=== PATIENT | male | born 1960 | race Caucasian/White ===

== ENCOUNTER 2016-06-22 21:31 | Inpatient (IN) | payer BC, OTHER ==
[~2016-06-22] VITALS: Ht 165.1 cm; Wt 55.3 kg
[2016-06-22] MEDS ORDERED: ALBUT/IPRATROP 3MG/0.5MG NEB 3 ML VIAL INH STA (21:40)
[2016-06-22] MEDS ORDERED: SODIUM CHLORIDE 0.9% 1000ML 500 ML IV STA (21:40)
[2016-06-22 21:52] LABS: HEMATOCRIT 44.1 % (42-52); MEAN CELL VOLUME 104.8 fL (80-100); MEAN CORPUSCULAR HEMOGLOBIN 37.3 pg (25-34); MEAN CORPUSCULAR HGB CONC 35.6 g/dl (32-36); MEAN PLATELET VOLUME 11.2 fL (7.4-10.4); PLATELET COUNT 172 K/uL (130-400); RED BLOOD COUNT 4.21 M/uL (4.7-6.1); WHITE BLOOD COUNT 13.36 K/uL (4.8-10.8)
--- NOTE | 2016-06-22 21:56 | EMERGENCY ROOM VISIT NOTE ---
History Report prepared by Gerri: Antonette Muniz Under the Supervision of: Dr. Fran Engel M.D. First contact with patient: 21:33 Stated Complaint: CHEST PAIN History of Present Illness The patient is a 55 year old male who presents to the Emergency Room via EMS with complaints of right lower chest pain starting about an hour and a half ago. He was at baseline prior to the onset of his symptoms. He was lifting some machines at work when he had an onset of his pain. The pain was severe and it brought him to his knees. He has worsening pain with breathing, movement of right arm, and palpation. He received 4 Aspirin and 2 Nitro in route to the Emergency Room without relief. He is a current cigarette smoker. He has a history of COPD. He has chronic shortness of breath and denies any changes. He has a chronic cough which has not changed. He denies any history of myocardial infarction or blood clots. He denies fevers, chills, or any other complaints. Source of History: patient Onset: about an hour and a half ago Position: chest (right lower) Symptom Intensity: severe Modifying Factors (Relieving): other (4 Aspirin and 2 Nitro in route to the Emergency Room without relief) Associated Symptoms: + SOB (chronic), + cough (chronic), No chills, No fevers Review of Systems See HPI for pertinent positives & negatives. A total of 10 systems reviewed and were otherwise negative. Past Medical & Surgical Medical Problems: (1) COPD (chronic obstructive pulmonary disease) (2) Respiratory failure, acute Family History Patient reports no known family medical history. Social History Marital Status: single Occupation Status: employed Current/Historical Medications Scheduled Aspirin (Aspirin Ec), 81 MG PO DAILY Cyanocobalamin (Vitamin B-12), 1,000 MCG PO DAILY Lisinopril (Zestril), 10 MG PO DAILY Allergies Coded Allergies: No Known Allergies (Unverified , 06/22/16) Physical Exam Vital Signs Date Time Temp Pulse Resp B/P Pulse Ox O2 Delivery O2 Flow Rate FiO2 06/22/16 23:01 94 Nasal Cannula 2.0 06/22/16 23:00 87 Room Air 06/22/16 22:40 98 20 136/98 95 Room Air 06/22/16 21:55 95 Room Air 06/22/16 21:55 36.6 103 22 146/100 95 Room Air 06/22/16 21:55 95 Room Air 06/22/16 21:47 97 Physical Exam GENERAL: Patient is in no acute distress. HEENT: No acute trauma, normocephalic atraumatic, mucous membranes moist, no nasal congestion, no scleral icterus. NECK: No stridor, no adenopathy, no meningismus, trachea is midline. CHEST: Tenderness over the right anterior low chest wall just off to the side of the sternum, pain does worsen with movement of his right arm. LUNGS: Markedly diminished breath sounds with wheezing and rhonchi bilaterally, breath sounds are equal. HEART: Tachycardic rate with a regular rhythm, no murmurs. ABDOMEN: Soft, nontender, bowel sounds positive, no hernias, no peritonitis. EXTREMITIES: No cyanosis or edema, full range of motion of all the joints without pain or difficulty, no signs for acute trauma. NEUROLOGIC: Oriented x 3, no acute motor or sensory deficits, no focal weakness. SKIN: No rash, no jaundice, no diaphoresis. Medical Decision & Procedures ER Provider Diagnostic Interpretation: X-ray results as stated below per interpretation by me and the radiologist: CHEST ONE VIEW PORTABLE CLINICAL HISTORY: CHEST PAIN dyspnea COMPARISON STUDY: No previous studies for comparison. FINDINGS: Mild emphysematous change. Possible nodular density left midlung. Diaphragms are smooth. No focal infiltrative change. IMPRESSION: Emphysematous change. Possible small nodular density left midlung versus overlap artifact. CT of the chest is suggested. Electronically signed by: Vladislav Steele M.D. 06/22/2016 10:19 PM Dictated Date/Time: 06/22/2016 10:[address] results as stated below per my review and radiologist interpretation: CHEST CTA for PULMONARY ARTERIES CT DOSE: 220.95 mGy.cm HISTORY: Chest pain dyspnea TECHNIQUE: Multiaxial CT images of the chest were performed following the intravenous administration of contrast to evaluate the pulmonary arteries. Maximal intensity projection images were also obtained. COMPARISON STUDY: None. FINDINGS: There is a normal caliber thoracic aorta with no evidence for dissection. There is no evidence for pulmonary embolus. No pleural effusions. No pneumothorax. The liver and spleen are unremarkable. No mediastinal or hilar lymphadenopathy. The central airways are patent. The lungs demonstrate patchy infiltrative versus nodular-type changes right lower lobe and a right lobe. There are no consolidative infiltrates. There is mild peribronchial thickening throughout. The density seen on the patient's routine chest series. Related to overlap artifact. IMPRESSION: 1. Study is negative for pulmonary embolus. 2. Emphysematous change with moderate peribronchial thickening. 3. Multifocal small infiltrative changes of the right lower lobe as well as right midlung region 4. Although statistically most likely consistent with an inflammatory process, short-term CT follow-up is recommended to exclude a persistent groundglass nodule. Electronically signed by: Vladislav Steele M.D. 06/22/2016 10:45 PM Dictated Date/Time: 06/22/2016 10:43 PM Laboratory Results 06/22/16 20:00 06/22/16 20:00 Test 06/22/16 20:00 06/22/16 21:49 Red Blood Count 4.21 M/uL (4.7-6.1) Mean Corpuscular Volume 104.8 fL (80-100) Mean Corpuscular Hemoglobin 37.3 pg (25-34) Mean Corpuscular Hemoglobin Concent 35.6 g/dl (32-36) RDW Standard Deviation 57.2 fL (36.4-46.3) RDW Coefficient of Variation 14.9 % (11.5-14.5) Mean Platelet Volume 11.2 fL (7.4-10.4) Prothrombin Time 9.9 SECONDS (9.0-12.0) Prothromb Time International Ratio 0.9 (0.9-1.1) Activated Partial Thromboplast Time 26.3 SECONDS (21.0-31.0) Partial Thromboplastin Ratio 1.0 Anion Gap 11.0 mmol/L (3-11) Est Creatinine Clear Calc Drug Dose 86.4 ml/min Estimated GFR () 124.5 Estimated GFR (Non- 107.4 BUN/Creatinine Ratio 5.3 (10-20) Calcium Level 7.9 mg/dl (8.5-10.1) Total Bilirubin 1.0 mg/dl (0.2-1) Aspartate Amino Transf (AST/SGOT) 79 U/L (15-37) Alanine Aminotransferase (ALT/SGPT) 41 U/L (12-78) Alkaline Phosphatase 264 U/L (45-117) Total Protein 6.8 gm/dl (6.4-8.2) Albumin 2.9 gm/dl (3.4-5.0) Globulin 3.9 gm/dl (2.5-4.0) Albumin/Globulin Ratio 0.7 (0.9-2) Bedside D-Dimer > 450 ng/mlFEU (0-450) Bedside Troponin I 0.030 ng/ml (0-0.045) Laboratory results reviewed by me. Medications Administered Medications (Trade) Dose Ordered Sig/Lee Route Start Time Stop Time Status Last Admin Dose Admin Sodium Chloride (Nss 1000ml) 500 ml @ 999 mls/hr Q31M STAT IV 06/22/16 21:40 06/22/16 22:10 DC 06/22/16 21:40 999 MLS/HR Albuterol/ Ipratropium (Duoneb) 3 ml NOW STAT INH 06/22/16 21:40 06/22/16 21:42 DC 06/22/16 21:51 3 ML Potassium Chloride (Klor-Con M10) 40 meq NOW STAT PO 06/22/16 22:16 06/22/16 22:18 DC 06/22/16 22:25 40 MEQ ECG Indication: chest pain Rate (beats per minute): 100 Rhythm: normal sinus Findings: no acute ischemic change, no ectopy, other (Old septal infarct; a possible old inferior infarct) Comparison ECG Date: no prior available ED Course 2132: The patient was evaluated in room B12B. A complete history and physical exam was performed. 0: DuoNeb 3 ml INH, Sodium Chloride 500 ml @ 999 mls/hr IV 2216: Potassium Chloride 40 meq PO 2220: I reevaluated the patient who had some improvement in pain. 2254: Zosyn IV 4.5 gm IV 2303: Solu-Medrol IV 80 mg IV 2305: I reevaluated the patient who is resting comfortably. 2312: The patient's oxygen saturation dropped. I discussed results and treatment plan with the patient. He verbalizes agreement and understanding. The patient will be evaluated for further management. 2315: I discussed the patient's case with Dr. Altman, from [facility] Service. Medical Decision Differential diagnosis includes but is not limited to myocardial infarction, musculoskeletal chest pain, exacerbation of COPD, pneumonia, pneumothorax, PE, aortic dissection. There is a mild leukocytosis which would be consistent with infection. No concerning anemia. Renal panel testing shows some hypokalemia, no kidney failure. There were a few elevations to the liver enzymes. There was no coagulopathy. Chest film shows COPD and some generalized congestion but no obvious focal infiltrate. No CHF or pneumothorax. EKG showed a normal sinus rhythm with some possible old infarcts, no acute ischemia. Cardiac enzyme testing times one is not consistent with acute cardiac injury. Blood cultures are pending. D-dimer test was positive. Chest CT does not show PE, a pneumonia on the right lung was noted. The patient received a DuoNeb, IV Solu-Medrol, IV saline. He received IV Zosyn as antibiotic coverage. Patient was given oral potassium. The patient did drop his O2 saturation to around 87%. He required O2 supplementation. He does seem improved though since being treated here in the emergency room. He seems much more comfortable and is breathing easier. The patient requires admission/observation. He is hypoxic with pneumonia. He has underlying COPD. I did speak to the patient and to case management. The on -call hospitalist was consulted. The chest pain is likely from his infection. Consults Time Called: 2311 Consulting Physician[facility] Returned Call: 3 I discussed the patient's case with [facility]. Impression Primary Impression: Right-sided chest pain Additional Impressions: Pneumonia Hypoxia COPD (chronic obstructive pulmonary disease) Scribe Attestation The scribe's documentation has been prepared under my direction and personally reviewed by me in its entirety. I confirm that the note above accurately reflects all work, treatment, procedures, and medical decision making performed by me. Departure Information Dispostion Being Evaluated By Hospitalist Referrals No Doctor, Assigned (PCP) Problem Qualifiers
[2016-06-22 22:05] LABS: INR 0.9 (0.9-1.1); PROTHROMBIN TIME (PATIENT) 9.9 SECONDS (9.0-12.0)
[2016-06-22] MEDS ORDERED: CYAN10005 PO (22:08)
[2016-06-22] MEDS ORDERED: ASPI81TA28 PO (22:08)
[2016-06-22 22:09] LABS: BUN/CREATININE RATIO 5.3 (10-20); CALCIUM 7.9 mg/dl (8.5-10.1); CREATININE 0.67 mg/dl (0.60-1.40); POTASSIUM 2.8 mmol/L (3.5-5.1)
[2016-06-22] MEDS ORDERED: LISI-461 PO (22:09)
[2016-06-22 22:12] LABS: ALB/GLOB RATIO 0.7 (0.9-2)
[2016-06-22] MEDS ORDERED: POTASSIUM CHLORIDE 10 MEQ TABCR PO STA ×2 (22:16→23:19)
--- NOTE | 2016-06-22 22:20 | DIAGNOSTIC IMAGING REPORT ---
CHEST ONE VIEW PORTABLE CLINICAL HISTORY: CHEST PAIN dyspnea COMPARISON STUDY: No previous studies for comparison. FINDINGS: Mild emphysematous change. Possible nodular density left midlung. Diaphragms are smooth. No focal infiltrative change. IMPRESSION: Emphysematous change. Possible small nodular density left midlung versus overlap artifact. CT of the chest is suggested. Electronically signed by: Vladislav Steele M.D. 06/22/2016 10:19 PM Dictated Date/Time: 06/22/2016 10:18 PM
--- NOTE | 2016-06-22 22:46 | DIAGNOSTIC IMAGING REPORT ---
CHEST CTA for PULMONARY ARTERIES CT DOSE: 220.95 mGy.cm HISTORY: Chest pain dyspnea TECHNIQUE: Multiaxial CT images of the chest were performed following the intravenous administration of contrast to evaluate the pulmonary arteries. Maximal intensity projection images were also obtained. COMPARISON STUDY: None. FINDINGS: There is a normal caliber thoracic aorta with no evidence for dissection. There is no evidence for pulmonary embolus. No pleural effusions. No pneumothorax. The liver and spleen are unremarkable. No mediastinal or hilar lymphadenopathy. The central airways are patent. The lungs demonstrate patchy infiltrative versus nodular-type changes right lower lobe and a right lobe. There are no consolidative infiltrates. There is mild peribronchial thickening throughout. The density seen on the patient's routine chest series. Related to overlap artifact. IMPRESSION: 1. Study is negative for pulmonary embolus. 2. Emphysematous change with moderate peribronchial thickening. 3. Multifocal small infiltrative changes of the right lower lobe as well as right midlung region 4. Although statistically most likely consistent with an inflammatory process, short-term CT follow-up is recommended to exclude a persistent groundglass nodule. Electronically signed by: Vladislav Steele M.D. 06/22/2016 10:45 PM Dictated Date/Time: 06/22/2016 10:43 PM
[2016-06-22] MEDS ORDERED: PIPERACILLIN/TAZOBACTAM 4.5 GM/100ML D5W IV STA (22:54)
[2016-06-22] MEDS ORDERED: METHYLPREDNISOLONE 125 MG VIAL IV STA (23:03)
[2016-06-22 23:42] LABS: MAGNESIUM 1.3 mg/dl (1.8-2.4)
[2016-06-22] MEDS ORDERED: LORAZEPAM 2 MG/ML 1 ML VIAL IV PRN (23:45)
[2016-06-22] MEDS ORDERED: LEVALBUTEROL 1.25MG/0.5ML NEB INH PRN (23:45)
[2016-06-22] MEDS ORDERED: MoRPHine SULFATE 2 MG/ML CARP IV PRN (23:45)
[2016-06-22] MEDS ORDERED: LEVALBUTEROL/IPRATROPIUM NEB INH PRN (23:45)
[2016-06-22] MEDS ORDERED: KETOROLAC TROMETHAMINE 15 MG/ML VIAL IV. PRN (23:45)
[2016-06-22] MEDS ORDERED: AMPICILLIN/SULBACTAM CONSULT ACTIVE PRN ×2 (23:45)
[2016-06-22] MEDS ORDERED: TRAMADOL HCL 50 MG TAB PO PRN (23:45)
[2016-06-22] MEDS ORDERED: ACETAMINOPHEN 325 MG TAB PO PRN (23:45)
[2016-06-22] MEDS ORDERED: IPRATROPIUM BROMIDE NEB SOLN 0.02% 2.5 ML VIAL INH PRN (23:45)
[2016-06-22] MEDS ORDERED: GABAPENTIN 800 MG TAB PO SCH (23:45)
[2016-06-23] VITALS (12 sets, daily range): BP systolic 151–214; BP diastolic 78–94; PULSE 58–110; TEMP 36.6–37.1; O2SAT 80–100; Ht 165.1 cm; Wt 55.3 kg
[2016-06-23 00:07] LABS: THYROID STIMULATING HORMONE 0.546 uIu/ml (0.300-4.500)
--- NOTE | 2016-06-23 00:43 | Progress Note ---
Progress Note Post Crystalloid Evaluation Date: June 22, 2016 Time: 23:40 Subjective sob usual cough sx prod of yellow sputum denies aspiration Physical Exam Vital Signs: Vital Signs Date Time Temp Pulse Resp B/P Pulse Ox O2 Delivery O2 Flow Rate FiO2 06/23/16 00:10 37.1 73 22 151/84 Nasal Cannula 2.0 06/22/16 23:49 93 Lungs: + wheezing Heart: regular rate, rhythm Peripheral Pulse: Weak Skin: [place], Unremarkable Assessment & Plan Presence of: Severe Sepsis ASSESSMENT: severe sepsis 2 to multifocal pneumonia, R SIRS plus hypoxemia plus lactic acidosis ? question of aspiration in an alcoholic patient CS, ff lactic acid [place] for now de-escalate tx pending CS results availability
[2016-06-23] MEDS ORDERED: VANCOMYCIN INJ 1,250 MG in SODIUM CHLORIDE 0.9% 250ML 250 ML IV STA (00:50)
[2016-06-23] MEDS ORDERED: MULTI-VITAMIN INFUSION INJ 10 ML, THIAMINE HCL INJ 100 MG, FoLIC ACID INJ 1 MG, POTASSI... IV ONE ×10 (01:00)
[2016-06-23] MEDS ORDERED: VANCOMYCIN CONSULT ACTIVE PRN (01:00)
[2016-06-23] MEDS ORDERED: PIPERACILL/TAZOBAC CONSULT ACTIVE PRN (01:00)
[2016-06-23] MEDS ORDERED: GABAPENTIN 800MG LOADING DOSE PO SCH (01:00)
[2016-06-23] MEDS: MAGNESIUM SULFATE 1GM / D5W 1 GM in PREMIXED IN D5W 100 ML IV SCH ×3 (01:05→02:56)
[2016-06-23] MEDS ORDERED: PROMETHAZINE HCL INJ 12.5 MG in SODIUM CHLORIDE 0.9% 50ML 50 ML IV PRN (01:45)
[2016-06-23] MEDS: IPRATROPIUM BROMIDE NEB SOLN 0.02% 2.5 ML VIAL INH SCH ×4 (01:50→19:52)
[2016-06-23] MEDS: LEVALBUTEROL 1.25MG/0.5ML NEB INH SCH ×4 (01:50→19:52)
[2016-06-23] MEDS ORDERED: POTASSIUM CHLORIDE 10 MEQ TABCR PO ONE ×2 (02:00→07:00)
[2016-06-23] MEDS ORDERED: AMPICILLIN/SULBACTAM SOD INJ 3,000 MG in SODIUM CHLORIDE 0.9% 100ML 100 ML IV SCH (02:00)
--- NOTE | 2016-06-23 02:19 | HISTORY & PHYSICAL EXAMINATION ---
DATE OF ADMISSION: 06/22/2016 PRIMARY CARE DOCTOR: Dr. Rajput History obtained from patient and records. CHIEF COMPLAINT: Shortness of breath. HISTORY OF PRESENT ILLNESS: Medical history is significant for COPD, ongoing tobacco abuse, hypertension and daily alcohol intake. Hx PVD as per records. Patient was at work today when he noted pleuritic right-sided chest pain, increasing shortness of breath; usual cough symptoms productive of yellow sputum. He denies aspiration. No fever/chills. loose stools, no abd pain. At the Emergency Room, a CTA showed no PE, COPD, multiple small infiltrative changes right lower lobe as well as the right mid lung. At some point, O2 sats dropped to 87 on room air. Patient received Solu-Medrol, Zosyn and DuoNebs in the Emergency Room. MEDICAL HISTORY: As above. Pneumococcal vaccine in 2013. He has not had seasonal flu vaccines recently. SURGERIES: He has had tonsillectomy, adenectomy, and dental surgery. HOME MEDICATIONS: Include; aspirin, lisinopril and vitamin B12. ALLERGIES: No known drug allergies. FAMILY HISTORY: Hypertension. PERSONAL AND SOCIAL HISTORY: One pack daily. 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 REVIEW OF SYSTEMS: As per HPI. All other ROS negative. PHYSICAL EXAMINATION: VITAL SIGNS: Blood pressure 136/98, pulse rate 98, RR 20, temperature 36.6 and sats 95 later 87 on room air 92 on 4 liters GENERAL: Slightly anxious, alcoholic fetor, looks older for stated age., in minimal respiratory distress. SKIN: Normal color. HEENT: [place] palpebral conjunctivae. Dry mucosa. NECK: No JVD. Supple. CHEST: Expiratory wheezes, rhonchi. HEART: Regular rate and rhythm. ABDOMEN: Soft. EXTREMITIES: No edema. no tenderness NEUROLOGIC: No gross focality. LABORATORIES: Hemoglobin was noted to be 15, hematocrit 44, white cells 13.3 and platelets 172. Sodium 140, potassium 2.8, chloride 92, CO2 of 37, BUN 4, creatinine 0.6 and glucose 98. magnesium 1.3, lactic acid 5.2 CTA; as above. EKG as per my interpretation; rate of 100, NSR, LAD, LAFB, some flattening in the lateral leads. QTc was noted to be 510. ASSESSMENT: 1. Acute hypoxemic respiratory failure secondary to COPD exacerbation 2 to multifocal pneumonia, R ? question of aspiration in an alcoholic patient 2. severe sepsis 2 to above SIRS plus hypoxemia plus lactic acidosis 3. Hypertension, stable. 4. Hypokalemia secondary to diarrhea; rule out Clostridium difficile. 5 Malnutrition. Low body mass index. 6. Ongoing tobacco abuse. 7. PVD as per records PLAN: PCU supplemental O2 baseline ABG CS, ff lactic acid Vanco, Zosyn for now, de-escalate tx pending CS results availability nebs, steroids Pulmonary consult for respiratory failure. Replace lytes stool cdif Nutrition consult for low BMI. DT precautions. DVT prophylaxis, Lovenox subQ. DNR. MTDD
[2016-06-23] MEDS ORDERED: LACTATED RINGER'S 1000ML 1,000 ML IV SCH (03:00)
[2016-06-23] MEDS ORDERED: LEVALBUTEROL/IPRATROPIUM NEB INH SCH (03:00)
[2016-06-23 04:07] LABS: BASO % 0.1 %; BASO ABS # 0.01 K/uL (0-0.2); COMPLETE YES; HEMATOCRIT 39.4 % (42-52); IG% 0.1 %; LYMPH % 2.2 %; LYMPH ABS # 0.21 K/uL (1.2-3.4); MEAN CELL VOLUME 104.8 fL (80-100); MEAN CORPUSCULAR HEMOGLOBIN 36.7 pg (25-34); MEAN PLATELET VOLUME 10.9 fL (7.4-10.4); MONO % 1.6 %; PLATELET COUNT 125 K/uL (130-400); RED BLOOD COUNT 3.76 M/uL (4.7-6.1); WHITE BLOOD COUNT 9.48 K/uL (4.8-10.8)
[2016-06-23 04:24] LABS: ARTERIAL BLD GAS O2 SATURATION 99.2 % (90-95); ARTERIAL BLOOD GAS BASE EXCESS 6.2 mEq/L (-9-1.8); ARTERIAL BLOOD GAS HCO3 31 mmol/L (19-24); ARTERIAL BLOOD GAS PO2 156 mm/Hg (80-95); ARTERIAL BLOOD GAS pH 7.47 (7.35-7.45); O2 ADMINISTRATION 6 L
[2016-06-23 04:25] LABS: ALLEN TEST POS (POS)
[2016-06-23 04:25] LABS: CREATININE 0.64 mg/dl (0.60-1.40); MAGNESIUM 2.6 mg/dl (1.8-2.4); POTASSIUM 3.2 mmol/L (3.5-5.1)
[2016-06-23 04:30] LABS: ALB/GLOB RATIO 0.7 (0.9-2)
[2016-06-23] MEDS ORDERED: POTASSIUM CHLORIDE 10 MEQ TABCR PO STA ×2 (04:44→22:20)
[2016-06-23] MEDS ORDERED: GLUCOSE 40% GEL 15 GM TUBE PO PRN (04:45)
[2016-06-23] MEDS ORDERED: GLUCOSE 10 TABS/TUBE PO PRN (04:45)
[2016-06-23] MEDS ORDERED: GLUCAGON FOR INJ 1 MG VIAL SQ PRN (04:45)
[2016-06-23] MEDS ORDERED: DEXTROSE 50% 50 ML SYR IV PRN (04:45)
[2016-06-23] MEDS: LACTATED RINGER'S 1000ML 1,000 ML IV SCH ×2 (05:28→11:27)
[2016-06-23] MEDS: PIPERACILL/TAZOBAC IV 3.375 GM in DEXTROSE 5% 100ML IV SCH ×3 (05:29→21:21)
[2016-06-23 06:27] LABS: ESTIMATED AVERAGE GLUCOSE 108 mg/dl; HA1C FLAG Normal (Normal)
--- NOTE | 2016-06-23 07:13 | DIAGNOSTIC IMAGING REPORT ---
CHEST ONE VIEW PORTABLE HISTORY: Short of breath. COMPARISON: Chest CT and chest x-ray 06/22/2016. FINDINGS: Emphysema. No pleural effusions. No pneumothorax. The heart is normal in size. Bilateral hilar prominence, unchanged. Hazy density within the right medial lung base persist. IMPRESSION: Hazy density within the right medial lung base consistent with a pneumonia. This remains unchanged. One month chest x-ray follow-up is recommended to ensure resolution. Electronically signed by: Reinaldo Snyder M.D. 06/23/2016 7:12 AM Dictated Date/Time: 06/23/2016 7:10 AM
[2016-06-23] MEDS: GABAPENTIN 400MG Q6H DOSE PO SCH ×2 (07:47→12:56)
[2016-06-23] MEDS: ASPIRIN 81 MG ECTAB PO SCH (07:47)
[2016-06-23] MEDS: NICOTINE 21 MG/24 HR TDSY TD SCH (07:47)
[2016-06-23] MEDS: LISINOPRIL 10 MG TAB PO SCH (07:48)
[2016-06-23] MEDS: INSULIN ASPART 100 UNITS/ML 3 ML PEN SC SCH ×4 (07:48→21:20)
[2016-06-23] MEDS: ENOXAPARIN 30 MG/0.3 ML SYR SC SCH (07:50)
[2016-06-23] MEDS ORDERED: INFLUENZA ADMINISTRATION CHARGE ONE (08:00)
[2016-06-23] MEDS ORDERED: PNEUMOCOCCAL ADMINISTRATION CHARGE ONE (08:00)
[2016-06-23] MEDS ORDERED: INFLUENZA VIRUS QUAD VACCINE 0.5 ML SYR IM. ONE (08:00)
[2016-06-23] MEDS ORDERED: PNEUMOCOCCAL POLYSACCHARIDES 25 MCG/0.5 ML VIAL/SYR IM. ONE (08:00)
--- NOTE | 2016-06-23 09:03 | Progress Note ---
Internal Med Progress Note Date of Service: June 23, 2016. Provider Documentation: SUBJECTIVE: Patient is seen and examined at bedside. Currently getting ECHO. He complains of pleuritic chest pain across his chest which is improving. Had one loose BM this morning. Denies any SOB, abd pain,nausea, vomiting. Has chronic cough. Offers no other complaints. Admits to being non compliant with meds/Inhalers use. OBJECTIVE: Vital Signs-as noted below Physical Exam: General Appearance:Thin, fragile, chronic ill appearing, no apparent distress Head: normocephalic, Atraumatic Eyes: normal inspection, EOMI, PERRL Neck: supple, Trachea midline Respiratory/Chest: Decreased breath sounds, CTA, No accessory muscle use Cardiovascular: S1, S2, No murmur Abdomen/GI:Soft, Non tender, Bowel sounds present Extremities/Musculoskelatal:normal inspection, no edema Neurologic/Psych:AAOX3, grossly no focal neurological deficits Skin: normal color, warm Lab data as noted below. ASSESSMENT & PLAN: Acute on chronic hypoxemic respiratory failure: Secondary to COPD exacerbation and Multifocal pneumonia Possible aspiration given h/o alcoholic abuse Admit being non compliance with meds/Inhalers Not on oxygen at baseline CTA: No PE Continue respiratory support ECHO:pending Continue duonebs, antibiotics, Prednisone Pulmonology consulted Severe sepsis: Secondary to Multifocal pneumonia Lactic acid trending down Continue IV fluids, Vanco and Zosyn Follow up Blood/Sputum cultures Stool for c.diff:pending Torsades: Monitor Electrolytes ECHO:pending Cardiology consulted Hypertension: stable Monitor Hypokalemia: Likely secondary to diarrhea. Will replace, monitor electrolytes Malnutrition: BMI:18.6 Nutrition consult Tobacco abuse: Clinical Pharmacologist Alcohol Abuse disorder: Alcohol level:91 Continue Gabapentin per protocol Continue thiamine, folic acid Watch for withdrawal Clinical Pharmacologist PVD as per records Continue Aspirin DVT Px: Lovenox subQ. Code Status: Full Code Discussed with patient on 06/23/16 PROCEDURES: CTA: 1. Study is negative for pulmonary embolus. 2. Emphysematous change with moderate peribronchial thickening. 3. Multifocal small infiltrative changes of the right lower lobe as well as right midlung region 4. Although statistically most likely consistent with an inflammatory process, short-term CT follow-up is recommended to exclude a persistent groundglass nodule. Vital Signs: Date Time Temp Pulse Resp B/P Pulse Ox O2 Delivery O2 Flow Rate FiO2 06/23/16 14:05 78 12 99 Nasal Cannula 4.0 06/23/16 11:30 Nasal Cannula 4.0 06/23/16 11:04 36.9 89 20 157/78 99 Nasal Cannula 4.0 06/23/16 07:45 Nasal Cannula 4.0 06/23/16 07:42 87 12 96 Nasal Cannula 4.0 06/23/16 07:08 36.7 58 20 179/91 100 06/23/16 04:00 Nasal Cannula 4.0 06/23/16 03:18 36.6 67 21 163/86 100 Nasal Cannula 6.0 06/23/16 01:50 84 18 98 Nasal Cannula 6.0 06/23/16 01:25 110 214/94 80 06/23/16 00:10 37.1 73 22 151/84 Nasal Cannula 2.0 06/22/16 23:49 86 22 154/89 93 06/22/16 23:01 94 Nasal Cannula 2.0 06/22/16 23:00 87 Room Air 06/22/16 22:40 98 20 136/98 95 Room Air 06/22/16 21:55 95 Room Air 06/22/16 21:55 36.6 103 22 146/100 95 Room Air 06/22/16 21:55 95 Room Air 06/22/16 21:47 97 Lab Results: Results Past 24 Hours Test 06/22/16 20:00 06/22/16 21:49 06/22/16 23:17 06/22/16 23:55 Range/Units White Blood Count 13.36 4.8-10.8 K/uL Red Blood Count 4.21 4.7-6.1 M/uL Hemoglobin 15.7 14.0-18.0 g/dL Hematocrit 44.1 42-52 % Mean Corpuscular Volume 104.8 80-100 fL Mean Corpuscular Hemoglobin 37.3 25-34 pg Mean Corpuscular Hemoglobin Concent 35.6 32-36 g/dl RDW Standard Deviation 57.2 36.4-46.3 fL RDW Coefficient of Variation 14.9 11.5-14.5 % Platelet Count 172 130-400 K/uL Mean Platelet Volume 11.2 7.4-10.4 fL Prothrombin Time 9.9 9.0-12.0 SECONDS Prothromb Time International Ratio 0.9 0.9-1.1 Activated Partial Thromboplast Time 26.3 21.0-31.0 SECONDS Partial Thromboplastin Ratio 1.0 Sodium Level 140 136-145 mmol/L Potassium Level 2.8 3.5-5.1 mmol/L Chloride Level 92 98-107 mmol/L Carbon Dioxide Level 37 21-32 mmol/L Anion Gap 11.0 3-11 mmol/L Blood Urea Nitrogen 4 7-18 mg/dl Creatinine 0.67 0.60-1.40 mg/dl Est Creatinine Clear Calc Drug Dose 86.4 ml/min Estimated GFR () 124.5 Estimated GFR (Non- 107.4 BUN/Creatinine Ratio 5.3 10-20 Random Glucose 98 70-99 mg/dl Calcium Level 7.9 8.5-10.1 mg/dl Magnesium Level 1.3 1.8-2.4 mg/dl Total Bilirubin 1.0 0.2-1 mg/dl Aspartate Amino Transf (AST/SGOT) 79 15-37 U/L Alanine Aminotransferase (ALT/SGPT) 41 12-78 U/L Alkaline Phosphatase 264 45-117 U/L Total Protein 6.8 6.4-8.2 gm/dl Albumin 2.9 3.4-5.0 gm/dl Globulin 3.9 2.5-4.0 gm/dl Albumin/Globulin Ratio 0.7 0.9-2 Thyroid Stimulating Hormone (TSH) 0.546 0.300-4.500 uIu/ml Bedside D-Dimer > 450 0-450 ng/mlFEU Bedside Troponin I 0.030 0.010 0-0.045 ng/ml Lactic Acid Level 5.2 0.4-2.0 mmol/L Ethyl Alcohol mg/dL 91.0 0-3 mg/dl Test 06/23/16 04:00 06/23/16 04:15 06/23/16 06:45 06/23/16 10:45 Range/Units White Blood Count 9.48 4.8-10.8 K/uL Red Blood Count 3.76 4.7-6.1 M/uL Hemoglobin 13.8 14.0-18.0 g/dL Hematocrit 39.4 42-52 % Mean Corpuscular Volume 104.8 80-100 fL Mean Corpuscular Hemoglobin 36.7 25-34 pg Mean Corpuscular Hemoglobin Concent 35.0 32-36 g/dl Platelet Count 125 130-400 K/uL Mean Platelet Volume 10.9 7.4-10.4 fL Neutrophils (%) (Auto) 96.0 % Lymphocytes (%) (Auto) 2.2 % Monocytes (%) (Auto) 1.6 % Eosinophils (%) (Auto) 0.0 % Basophils (%) (Auto) 0.1 % Neutrophils # (Auto) 9.10 1.4-6.5 K/uL Lymphocytes # (Auto) 0.21 1.2-3.4 K/uL Monocytes # (Auto) 0.15 0.11-0.59 K/uL Eosinophils # (Auto) 0.00 0-0.5 K/uL Basophils # (Auto) 0.01 0-0.2 K/uL RDW Standard Deviation 58.3 36.4-46.3 fL RDW Coefficient of Variation 15.0 11.5-14.5 % Immature Granulocyte % (Auto) 0.1 % Immature Granulocyte # (Auto) 0.01 0.00-0.02 K/uL Sodium Level 140 136-145 mmol/L Potassium Level 3.2 4.2 3.5-5.1 mmol/L Chloride Level 99 98-107 mmol/L Carbon Dioxide Level 34 21-32 mmol/L Anion Gap 7.0 3-11 mmol/L Blood Urea Nitrogen 3 7-18 mg/dl Creatinine 0.64 0.60-1.40 mg/dl Est Creatinine Clear Calc Drug Dose 89.0 ml/min Estimated GFR () 126.9 Estimated GFR (Non- 109.5 BUN/Creatinine Ratio 4.0 10-20 Random Glucose 189 70-99 mg/dl Estimated Average Glucose 108 mg/dl Hemoglobin A1c 5.4 4.5-5.6 % Lactic Acid Level 2.4 0.4-2.0 mmol/L Calcium Level 7.0 8.5-10.1 mg/dl Magnesium Level 2.6 2.2 1.8-2.4 mg/dl Total Bilirubin 1.3 0.2-1 mg/dl Aspartate Amino Transf (AST/SGOT) 87 15-37 U/L Alanine Aminotransferase (ALT/SGPT) 36 12-78 U/L Alkaline Phosphatase 217 45-117 U/L Total Protein 5.6 6.4-8.2 gm/dl Albumin 2.3 3.4-5.0 gm/dl Globulin 3.3 2.5-4.0 gm/dl Albumin/Globulin Ratio 0.7 0.9-2 Arterial Blood pH 7.47 7.35-7.45 Arterial Blood Partial Pressure CO2 43 35-46 mmHg Arterial Blood Partial Pressure O2 156 80-95 mm/Hg Arterial Blood HCO3 31 19-24 mmol/L Arterial Blood Oxygen Saturation 99.2 90-95 % Arterial Blood Base Excess 6.2 -9-1.8 mEq/L Arterial Blood Gas Delivery 6 L [place] Test POS POS Bedside Glucose 129 70-99 mg/dl Troponin I 0.023 0-0.045 ng/ml Test 06/23/16 11:47 06/23/16 12:27 06/23/16 14:38 Range/Units Bedside Glucose 125 70-99 mg/dl Lactic Acid Level 3.8 0.4-2.0 mmol/L Microbiology Results 06/22/16 Blood Culture, Received Pending 06/22/16 Blood Culture, Received Pending 06/23/16 MRSA DNA Surveillance Screen - Final, Complete Specimen Negative for MRSA by DNA Probe 06/23/16 C.difficile Toxin B Gene (PCR), Neo Batch Pending 06/23/16 Gram Stain, Received Pending 06/23/16 Sputum Culture, Received Pending
--- NOTE | 2016-06-23 09:55 | Pharmacy Progress Note ---
Pharmacy Antibiotic Consult Date of Service: June 23, 2016. Pharmacy Dosing Scope Pharmacy is consulted to initiate vancomycin and zosyn IV dosing therapy, order appropriate labs and adjust drug dose/frequency. Subjective The patient is a 55 year old male admitted on June 22, 2016 at 23:20. Objective Height (Feet): 5 Height (Inches): 5.00 Weight (Kilograms): 50.600 Lab Results (24hrs): Test 06/22/16 20:00 06/22/16 21:49 06/22/16 23:55 06/23/16 04:00 White Blood Count 13.36 K/uL (4.8-10.8) 9.48 K/uL (4.8-10.8) Red Blood Count 4.21 M/uL (4.7-6.1) 3.76 M/uL (4.7-6.1) Hemoglobin 15.7 g/dL (14.0-18.0) 13.8 g/dL (14.0-18.0) Hematocrit 44.1 % (42-52) 39.4 % (42-52) Mean Corpuscular Volume 104.8 fL (80-100) 104.8 fL (80-100) Mean Corpuscular Hemoglobin 37.3 pg (25-34) 36.7 pg (25-34) Mean Corpuscular Hemoglobin Concent 35.6 g/dl (32-36) 35.0 g/dl (32-36) RDW Standard Deviation 57.2 fL (36.4-46.3) 58.3 fL (36.4-46.3) RDW Coefficient of Variation 14.9 % (11.5-14.5) 15.0 % (11.5-14.5) Platelet Count 172 K/uL (130-400) 125 K/uL (130-400) Mean Platelet Volume 11.2 fL (7.4-10.4) 10.9 fL (7.4-10.4) Prothrombin Time 9.9 SECONDS (9.0-12.0) Prothromb Time International Ratio 0.9 (0.9-1.1) Activated Partial Thromboplast Time 26.3 SECONDS (21.0-31.0) Partial Thromboplastin Ratio 1.0 Sodium Level 140 mmol/L (136-145) 140 mmol/L (136-145) Potassium Level 2.8 mmol/L (3.5-5.1) 3.2 mmol/L (3.5-5.1) Chloride Level 92 mmol/L (98-107) 99 mmol/L (98-107) Carbon Dioxide Level 37 mmol/L (21-32) 34 mmol/L (21-32) Anion Gap 11.0 mmol/L (3-11) 7.0 mmol/L (3-11) Blood Urea Nitrogen 4 mg/dl (7-18) 3 mg/dl (7-18) Creatinine 0.67 mg/dl (0.60-1.40) 0.64 mg/dl (0.60-1.40) Est Creatinine Clear Calc Drug Dose 86.4 ml/min 89.0 ml/min Estimated GFR () 124.5 126.9 Estimated GFR (Non- 107.4 109.5 BUN/Creatinine Ratio 5.3 (10-20) 4.0 (10-20) Random Glucose 98 mg/dl (70-99) 189 mg/dl (70-99) Calcium Level 7.9 mg/dl (8.5-10.1) 7.0 mg/dl (8.5-10.1) Magnesium Level 1.3 mg/dl (1.8-2.4) 2.6 mg/dl (1.8-2.4) Total Bilirubin 1.0 mg/dl (0.2-1) 1.3 mg/dl (0.2-1) Aspartate Amino Transf (AST/SGOT) 79 U/L (15-37) 87 U/L (15-37) Alanine Aminotransferase (ALT/SGPT) 41 U/L (12-78) 36 U/L (12-78) Alkaline Phosphatase 264 U/L (45-117) 217 U/L (45-117) Total Protein 6.8 gm/dl (6.4-8.2) 5.6 gm/dl (6.4-8.2) Albumin 2.9 gm/dl (3.4-5.0) 2.3 gm/dl (3.4-5.0) Globulin 3.9 gm/dl (2.5-4.0) 3.3 gm/dl (2.5-4.0) Albumin/Globulin Ratio 0.7 (0.9-2) 0.7 (0.9-2) Thyroid Stimulating Hormone (TSH) 0.546 uIu/ml (0.300-4.500) Bedside D-Dimer > 450 ng/mlFEU (0-450) Bedside Troponin I 0.030 ng/ml (0-0.045) Lactic Acid Level 5.2 mmol/L (0.4-2.0) 2.4 mmol/L (0.4-2.0) Ethyl Alcohol mg/dL 91.0 mg/dl (0-3) Neutrophils (%) (Auto) 96.0 % Lymphocytes (%) (Auto) 2.2 % Monocytes (%) (Auto) 1.6 % Eosinophils (%) (Auto) 0.0 % Basophils (%) (Auto) 0.1 % Neutrophils # (Auto) 9.10 K/uL (1.4-6.5) Lymphocytes # (Auto) 0.21 K/uL (1.2-3.4) Monocytes # (Auto) 0.15 K/uL (0.11-0.59) Eosinophils # (Auto) 0.00 K/uL (0-0.5) Basophils # (Auto) 0.01 K/uL (0-0.2) Immature Granulocyte % (Auto) 0.1 % Immature Granulocyte # (Auto) 0.01 K/uL (0.00-0.02) Estimated Average Glucose 108 mg/dl Hemoglobin A1c 5.4 % (4.5-5.6) Test 06/23/16 04:15 06/23/16 06:45 06/23/16 09:33 Arterial Blood pH 7.47 (7.35-7.45) Arterial Blood Partial Pressure CO2 43 mmHg (35-46) Arterial Blood Partial Pressure O2 156 mm/Hg (80-95) Arterial Blood HCO3 31 mmol/L (19-24) Arterial Blood Oxygen Saturation 99.2 % (90-95) Arterial Blood Base Excess 6.2 mEq/L (-9-1.8) Arterial Blood Gas Delivery 6 L Mitchel Test POS (POS) Bedside Glucose 129 mg/dl (70-99) Micro Results: Item Value Date Time Blood Culture Received 06/22/16 2310 Blood Pending Blood Culture Received 06/22/16 2305 Blood Pending MRSA DNA Surveillance Screen - Final Complete 06/23/16 0130 Nasal Specimen Negative for MRSA by DNA Probe Assessment & Plan Patient started on vancomycin and zosyn for possible sepsis/pneumonia. BC x 2 are pending Vancomycin: * Patient received LD of vancomycin 1250 mg (~25 mg/kg) x 1 this am * Will start MD of vancomycin 750 mg (~15 mg/kg) iv q 12 hrs to achieve an estimated trough ~15-20 mcg/ml (goal for pna/sepsis) * Will plan to obtain a trough prior to the 0200 dose on 06-25 to ensure therapeutic * Estimated kinetics: t1/2~9 hrs, ke~0.08 hr-1, CrCl ~90 ml/min Zosyn: * 3.375 gm iv q 8 hrs (appropriate for Crcl>20 ml/min); no change Pharmacy will continue to follow and will adjust dose/frequency as necessary. Thank you
[2016-06-23] MEDS ORDERED: METOPROLOL TARTRATE 25 MG TAB PO ONE (10:45)
--- NOTE | 2016-06-23 11:24 | ECHOCARDIOGRAM REPORT ---
*NOTICE TO RECEIVING LIBERTARIAN AGENCY This information is strictly Confidential and protected under [place] law. [place] law prohibits you from making any further disclosure of this information unless further disclosure is expressly permitted by the written consent of the person to whom it pertains or is authorized by law. A general authorization for the release of medical or other information is not sufficient for this purpose. Hospital accepts no responsibility if the information is made available to any other person, INCLUDING THE PATIENT. Interpretation Summary * Name: JOSELITO YUAN Study Date: 06/23/2016 08:56 AM BP: 163/86 mmHg * Patient Location: C.2T\S\S229\S\2 HR: 67 * : 1960 (M/d/yyyy) Gender: Male Height: 65 in * Age: 55 yrs Ethnicity: CA Weight: 107 lb * Ordering Physician: Mak Altman * Referring Physician: Self, Referred * Performed By: Philly English RDCS * * Reason For Study: VT * BSA: 1.5 m2 * -- Conclusions -- * The left ventricle is normal in size. * There is borderline concentric left ventricular hypertrophy. * Left ventricular systolic function is normal. * No regional wall motion abnormalities noted. * Ejection Fraction = 60-65%. * Aortic valve sclerosis mild, without significant aortic valvular stenosis. * There is no pericardial effusion. Procedure Details * A complete two-dimensional transthoracic echocardiogram was performed (2D, M-mode, Doppler and color flow Doppler). * The study was technically difficult. Left Ventricle * The left ventricle is normal in size. * There is borderline concentric left ventricular hypertrophy. * Ejection Fraction = 60-65%. * Left ventricular systolic function is normal. * No regional wall motion abnormalities noted. Right Ventricle * The right ventricle is normal in size and function. Atria * The left atrial size is normal. * Right atrial size is normal. * No ASD detected; PFO is not assessed. Mitral Valve * The mitral valve anatomy is normal. * There is no mitral valve stenosis. * There is trace mitral regurgitation. Tricuspid Valve * The tricuspid valve anatomy is normal. * There is no tricuspid stenosis. * There is trace tricuspid regurgitation. * Doppler findings do not suggest pulmonary hypertension. Aortic Valve * The aortic valve is trileaflet. * Aortic valve sclerosis mild, without significant aortic valvular stenosis. * No aortic regurgitation is present. Pulmonic Valve * The pulmonic valve is not well visualized. Great Vessels * The aortic root is normal size. Pericardium/Pleural * There is no pericardial effusion. Great Vessels * Normal inferior vena cava diameter and respiratory variation suggests normal central venous pressure. MMode 2D Measurements and Calculations IVSd 0.80 cm LVIDd 4.2 cm LVIDs 2.9 cm LVPWd 0.98 cm IVS/LVPW 0.81 FS 30.7 % EDV(Teich) 77.7 ml ESV(Teich) 32.2 ml EF(Teich) 58.6 % EDV(cubed) 73.0 ml ESV(cubed) 24.3 ml EF(cubed) 66.7 % LV mass(C)d 116.0 grams LV mass(C)dI 76.5 grams/m\S\2 SV(Teich) 45.5 ml SI(Teich) 30.0 ml/m\S\2 SV(cubed) 48.7 ml SI(cubed) 32.1 ml/m\S\2 Ao root diam 3.5 cm Ao root area 9.7 cm\S\2 ACS 2.1 cm LA dimension 2.8 cm asc Aorta Diam 3.2 cm LA/Ao 0.81 LVOT diam 2.0 cm LVOT area 3.1 cm\S\2 LVAd ap4 18.9 cm\S\2 LVLd ap4 7.0 cm EDV(MOD-sp4) 42.1 ml EDV(sp4-el) 43.1 ml LVAs ap4 8.7 cm\S\2 LVLs ap4 5.3 cm ESV(MOD-sp4) 12.3 ml ESV(sp4-el) 12.0 ml EF(MOD-sp4) 70.8 % EF(sp4-el) 72.2 % LVAd ap2 11.8 cm\S\2 LVLd ap2 6.0 cm EDV(MOD-sp2) 19.4 ml EDV(sp2-el) 19.6 ml LVAs ap2 5.5 cm\S\2 LVLs ap2 4.4 cm ESV(MOD-sp2) 5.9 ml ESV(sp2-el) 6.0 ml EF(MOD-sp2) 69.3 % EF(sp2-el) 69.5 % LVLd %diff -17.73 % EDV(MOD-bp) 31.2 ml LVLs %diff -22.38 % ESV(MOD-bp) 9.4 ml EF(MOD-bp) 69.8 % SV(MOD-sp4) 29.8 ml SI(MOD-sp4) 19.6 ml/m\S\2 SV(MOD-sp2) 13.4 ml SI(MOD-sp2) 8.9 ml/m\S\2 SV(MOD-bp) 21.8 ml SI(MOD-bp) 14.4 ml/m\S\2 SV(sp4-el) 31.1 ml SI(sp4-el) 20.5 ml/m\S\2 SV(sp2-el) 13.6 ml SI(sp2-el) 9.0 ml/m\S\2 Doppler Measurements and Calculations MV E max bhargavi 87.3 cm/sec MV A max bhargavi 82.0 cm/sec MV E/A 1.1 MV dec time 0.21 sec Ao V2 max 119.9 cm/sec Ao max PG 5.7 mmHg Ao max PG (full) 1.8 mmHg [place](V,A) 2.6 cm\S\2 [place](V,D) 2.6 cm\S\2 LV V1 max PG 4.0 mmHg LV V1 max 99.9 cm/sec PA V2 max 88.2 cm/sec PA max PG 3.1 mmHg PA acc slope 684.3 cm/sec\S\2 PA acc time 0.11 sec PA pr(Accel) 29.9 mmHg
--- NOTE | 2016-06-23 11:27 | Cardiology Consultation ---
Cardiology Consultation Date of Consultation: June 23, 2016 Requesting Physician: Dr. Altman Attending Radiosonde Operator: Dr. Cruz (Emily Hebert, MAKENNA) History of Present Illness Patient is a 55 year old male with past medical history significant for alcohol and tobacco abuse, medication non compliance, COPD, hypertension. He follows with Dr. Rajput for his PCP. He is a DNR per admission records. No known history of cardiovascular disease per review of outpatient records. No prior admission to [facility]. No cardiac testing, other than remote EKG without significant findings. He denies cardiovascular history. He does admit to history of intermittent "syncope", last episode occurring the day PTO. He was admitted for worsening SOB/hypoxia weakness with findings of pneumonia and sepsis after collapsing while at work. Boss summoned 911. Unsure if true syncopal episode at that time. On admission, found to have alcohol level of 91 with low magnesium and low potassium. Started on antibiotics, steroids, nebs by hospitalist. Electrolytes replaced. Troponin negative. EKG with sinus tachycardia without ischemic changes. Last night/early AM around 1:12 AM patient had episode of VT/torsades, lasting approx 2 minutes. This was followed by 12 second pause and then converting to NSR. Per nursing notes, patient had pulse during episode but was apneic. He was suctioned during event, but no therapies received, given DNR. He had one recurrent episode of VT this morning, lasting approx 45 seconds. Per nurse, patient had shallow breathing. At time of consult, patient sitting up in bed, awake and alert. States pleuritic chest discomfort has improved. SOB improving. Still with wheeze and productive cough. Does not recall events from last night or this AM, other than "people surrounding my bed when I woke up". He confirms he is a DNR as he does not wish to be on "machines". (Emily Hebert, MAKENNA) History Medical History 1. Chronic tobacco abuse 2. Chronic alcohol abuse 3. COPD 4. HTN Surgical History ANKLE BRACHIAL INDEX 02/01/15 DEREK 0.96 Right. 1.1 left, normal DENTAL SURGERY PROCEDURE NEC total teeth removal REMOVE TONSILS & ADENOIDS, AGE 12+ Social History Lives alone. . Family estranged. Chronic tobacco abuse, 1 PPD x 45 years. Chronic alcohol use. Works at [employer]. Family History Mother with CAD, details unknown. (Emily Hebert PA-C) Review Of Systems General: no fever or chills. Head: The patient denies headache and prior head trauma. Cardiovascular: + pleuritic chest discomfort. Chronic dyspnea noted. The patient denies dyspnea on exertion, palpitations, PND, orthopnea, edema, spontaneous shortness of breath, syncope and near syncope. Pulmonary: +chronic cough with sputum production The patient denies hemoptysis, and excessive snoring. Gastrointestinal: The patient denies nausea, vomiting, diarrhea, constipation, bloating, hematemesis, hematochezia, and abdominal pain. Skin: The patient denies diaphoresis and rash. Musculoskeletal: The patient denies joint pain, joint swelling, myalgia, back pain, neck pain and prior injuries. Neurological: The patient denies prior stroke and seizures (Emily Hebert PA-C) Allergies Coded Allergies: No Known Allergies (Unverified , 06/22/16) Medications Reported Home Medications Medications Dose Route/Sig Max Daily Dose Days Date Category Zestril (Lisinopril) 10 Mg Tab 10 Mg PO DAILY 06/22/16 Reported Aspirin Ec (Aspirin) 81 Mg Tab 81 Mg PO DAILY 06/22/16 Reported Vitamin B-12 (Cyanocobalamin) 1,000 Mcg Tab 1,000 Mcg PO DAILY 06/22/16 Reported (Emily Hebert PA-C) Physical Exam Vital Signs (Last 8hrs): Last 8 Hrs Date Time Temp Pulse Resp B/P Pulse Ox O2 Delivery O2 Flow Rate FiO2 06/23/16 07:42 87 12 96 Nasal Cannula 4.0 06/23/16 07:08 36.7 58 20 179/91 100 06/23/16 04:00 Nasal Cannula 4.0 06/23/16 03:18 36.6 67 21 163/86 100 Nasal Cannula 6.0 06/23/16 01:50 84 18 98 Nasal Cannula 6.0 06/23/16 01:25 110 214/94 80 General Appearance: Alert and oriented x3. Thin. Cachectic. Older than stated age. Head: Normocephalic Atraumatic. Eyes: PERRLA, EOMI, conjunctiva and sclera clear Neck: Supple. No carotid bruits noted. No JVD. No HJD. Respiratory: Decreased breath sounds with scattered wheeze. Cardiovascular: Reg rate and rhythm. S1 and S2 noted. No murmurs, rubs, gallops. PMI non displace. Abdomen: Normal bowel sounds, soft nontender. no abdominal bruits. Extremities: No edema, no clubbing or cyanosis. distal pulses 2/4 bilaterally. Neuro: No focal deficits. Psychiatric: Normal affect. (Emily Hebert, MAKENNA) Data Last 24 Hours Test 06/22/16 20:00 06/22/16 21:49 06/22/16 23:55 06/23/16 04:00 White Blood Count 13.36 K/uL 9.48 K/uL Red Blood Count 4.21 M/uL 3.76 M/uL Hemoglobin 15.7 g/dL 13.8 g/dL Hematocrit 44.1 % 39.4 % Mean Corpuscular Volume 104.8 fL 104.8 fL Mean Corpuscular Hemoglobin 37.3 pg 36.7 pg Mean Corpuscular Hemoglobin Concent 35.6 g/dl 35.0 g/dl RDW Standard Deviation 57.2 fL 58.3 fL RDW Coefficient of Variation 14.9 % 15.0 % Platelet Count 172 K/uL 125 K/uL Mean Platelet Volume 11.2 fL 10.9 fL Prothrombin Time 9.9 SECONDS Prothromb Time International Ratio 0.9 Activated Partial Thromboplast Time 26.3 SECONDS Partial Thromboplastin Ratio 1.0 Sodium Level 140 mmol/L 140 mmol/L Potassium Level 2.8 mmol/L 3.2 mmol/L Chloride Level 92 mmol/L 99 mmol/L Carbon Dioxide Level 37 mmol/L 34 mmol/L Anion Gap 11.0 mmol/L 7.0 mmol/L Blood Urea Nitrogen 4 mg/dl 3 mg/dl Creatinine 0.67 mg/dl 0.64 mg/dl Est Creatinine Clear Calc Drug Dose 86.4 ml/min 89.0 ml/min Estimated GFR () 124.5 126.9 Estimated GFR (Non- 107.4 109.5 BUN/Creatinine Ratio 5.3 4.0 Random Glucose 98 mg/dl 189 mg/dl Calcium Level 7.9 mg/dl 7.0 mg/dl Magnesium Level 1.3 mg/dl 2.6 mg/dl Total Bilirubin 1.0 mg/dl 1.3 mg/dl Aspartate Amino Transf (AST/SGOT) 79 U/L 87 U/L Alanine Aminotransferase (ALT/SGPT) 41 U/L 36 U/L Alkaline Phosphatase 264 U/L 217 U/L Total Protein 6.8 gm/dl 5.6 gm/dl Albumin 2.9 gm/dl 2.3 gm/dl Globulin 3.9 gm/dl 3.3 gm/dl Albumin/Globulin Ratio 0.7 0.7 Thyroid Stimulating Hormone (TSH) 0.546 uIu/ml Bedside D-Dimer > 450 ng/mlFEU Bedside Troponin I 0.030 ng/ml Lactic Acid Level 5.2 mmol/L 2.4 mmol/L Ethyl Alcohol mg/dL 91.0 mg/dl Neutrophils (%) (Auto) 96.0 % Lymphocytes (%) (Auto) 2.2 % Monocytes (%) (Auto) 1.6 % Eosinophils (%) (Auto) 0.0 % Basophils (%) (Auto) 0.1 % Neutrophils # (Auto) 9.10 K/uL Lymphocytes # (Auto) 0.21 K/uL Monocytes # (Auto) 0.15 K/uL Eosinophils # (Auto) 0.00 K/uL Basophils # (Auto) 0.01 K/uL Immature Granulocyte % (Auto) 0.1 % Immature Granulocyte # (Auto) 0.01 K/uL Estimated Average Glucose 108 mg/dl Hemoglobin A1c 5.4 % Test 06/23/16 04:15 06/23/16 06:45 Arterial Blood pH 7.47 Arterial Blood Partial Pressure CO2 43 mmHg Arterial Blood Partial Pressure O2 156 mm/Hg Arterial Blood HCO3 31 mmol/L Arterial Blood Oxygen Saturation 99.2 % Arterial Blood Base Excess 6.2 mEq/L Arterial Blood Gas Delivery 6 L Mitchel Test POS Bedside Glucose 129 mg/dl Imaging: Chest xray on admission: IMPRESSION: Emphysematous change. Possible small nodular density left midlung versus overlap artifact. CT of the chest is suggested. Chest CT on admission: IMPRESSION: 1. Study is negative for pulmonary embolus. 2. Emphysematous change with moderate peribronchial thickening. 3. Multifocal small infiltrative changes of the right lower lobe as well as right midlung region 4. Although statistically most likely consistent with an inflammatory process, short-term CT follow-up is recommended to exclude a persistent groundglass nodule. EKG: on admission - Normal sinus rhythm Left axis deviation Septal infarct , age undetermined T wave abnormality, consider anterior ischemia Prolonged QT Abnormal ECG No previous ECGs available. QTc 513 ms repeat EKG 06/23/16 - Normal sinus rhythm Left axis deviation Anteroseptal infarct (cited on or before 22-JUN-2016) Prolonged QT Abnormal ECG When compared with ECG of 22-JUN-2016 21:40, (unconfirmed) No significant change was found Qtc 525 EKG this AM, 06/23/16 - Normal sinus rhythm Left axis deviation Septal infarct (cited on or before 22-JUN-2016) Abnormal ECG Questionable change in initial forces of Septal leads Nonspecific T wave abnormality now evident in Inferior leads Telemetry reviewed: NSR with ventricular ectopy with episode of VT/torsades occuring on 06/23/16 at 1:12 to 1:14 AM, followed by approx 12 second pause and conversion to NSR with PVCs. Recurrent VT episode occurring in AM on 06/23/16 lasting 45 seconds. (Emily Hebert, MAKENNA) Assessment & Plan 1. Admission for sepsis secondary to pneumonia 2. Ventricular tachycardia in setting of low mag, hypokalemia, prolonged QT 3. Hypertension 4. Chronic alcohol use 5. Chronic tobacco abuse 6. COPD PLAN: Replace magnesium and potassium. Recheck Levels this afternoon. QT improved on repeat EKGs Consider beta alen if recurrent episodes. Continue antibiotics and treatment for pneumonia. Avoid medications with tendency to prolong QT Treat for alcohol withdrawal. Patient is DNR. This was discussed in detail. He seems to understand recent episodes of VT and sudden cardiac . He wishes to remain DNR. Case discussed with Dr. Cruz. Will follow. (Emily Hebert PA-C) Cardiology attending physician: Patient seen and examined at the bedside. He is somewhat tremulous at this time. Admits to excessive alcohol intake for several years on a daily basis. Reports chest discomfort with deep inspiration. Telemetry reviewed overnight demonstrating prolonged episode of torsade the points after 4 AM with a subsequent 12 second pause followed by conversion to sinus rhythm. He had a second episode of torsade de points an approximate 7 AM with associated syncope. Repeat ECG demonstrate improvement in QT interval. Profound hypomagnesemia, hypokalemia been supplemented. Patient is resting comfortably. Admits to excessive alcohol and nicotine intake on a daily basis. He's been diagnosed with right sided pneumonia and receiving antibiotic therapy. Offers no other complaints this time. Denies personal history of coronary disease, congestive heart failure, rheumatic fever as a child, diabetes, peripheral vascular disease, or dysrhythmia. PE: VSS. Gen: NAD, AAOx3. Underweight. Tremulous. Heart: regular, normal S1 and S2. No murmur, rub, or gallop appreciated. The lungs demonstrate diminished breath sounds bilaterally. No rales or rhonchi. No expiratory wheeze. The abdomen is soft and nontender no rebound or guarding. Extension is warm and dry without clubbing or cyanosis. No edema appreciated. A/P: Agree with above PAC history, physical exam, assessment, and plan. Patient admitted with pneumonia and possible aspiration the setting of excessive alcohol intake. 2 episodes of torsade the points recorded overnight associated with acquired long QT due to electrolyte derangement. Magnesium and potassium have been supplemented. His rhythm has been stable over the past 6 hours. Patient requests changing CODE STATUS to full code at this time. Will not add beta alen currently to avoid bradycardia which could induce further episodes of torsades. Cardiac enzymes wee trended 3 sets. His resting 2-D transthoracic echo demonstrate normal LV function. Treatment of alcohol withdrawal as per the internal medicine service. Electrolytes will be followed closely and supplemented as needed. Will continue to follow closely during hospitalization. Kvng Cruz DO, [facility] (José Cruz DO)
[2016-06-23 12:13] LABS: MAGNESIUM 2.2 mg/dl (1.8-2.4); POTASSIUM 4.2 mmol/L (3.5-5.1)
[2016-06-23] MEDS: VANCOMYCIN INJ 750 MG in SODIUM CHLORIDE 0.9% 250ML 250 ML IV SCH (12:55)
[2016-06-23] MEDS ORDERED: SODIUM CHLORIDE 0.9% 500ML 500 ML IV ONE ×2 (13:45→17:30)
[2016-06-23] MEDS ORDERED: CALCIUM GLUCONATE 10% 1,000 MG in SODIUM CHLORIDE 0.9% 50ML 50 ML IV ONE (16:30)
[2016-06-23] MEDS: BOOST BREEZE NUTRITION DRINK 1 BOX PO SCH (16:38)
[2016-06-23 20:56] LABS: POTASSIUM 3.6 mmol/L (3.5-5.1)
[2016-06-23 20:58] LABS: MAGNESIUM 1.8 mg/dl (1.8-2.4)
[2016-06-23] MEDS ORDERED: METOPROLOL TARTRATE 25 MG TAB PO SCH (21:00)
[2016-06-23] MEDS ORDERED: NSS + 20MEQ KCL 1000ML 1,000 ML IV SCH (22:30)
[2016-06-23] MEDS: MAGNESIUM CHLORIDE 64MG DELAYED REL TAB PO SCH (22:56)
[2016-06-24] VITALS (11 sets, daily range): BP systolic 158–184; BP diastolic 85–101; PULSE 70–90; TEMP 36.6–37.1; O2SAT 95–99
--- NOTE | 2016-06-24 00:01 | PULMONARY CONSULTATION ---
DATE OF CONSULTATION: 06/23/2016 TIME: 1:50 p.m. HISTORY OF PRESENT ILLNESS: The patient was seen in room 229 bed 2. He is a 55-year-old male who yesterday had a fairly sudden onset of pain in the right lower chest area. It began when he was at work. 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 He has to lift boxes or materials that weigh about 40 pounds. The pain persisted and became worse. He became more short of breath. Taking a deep breath definitely made the pain worse. Movement of his right arm made it worse. It seemed as if palpation made it worse. Today, the pain is in different areas. It is now located more towards the center or towards the left and is somewhat higher up. It is also a lot less intense than yesterday. He does not feel like he has a cold. He has a daily cough which is chronic and related to smoking. His mucus is typically yellow or white. He relates that about 2 weeks ago he had an episode of what he calls vomiting, but he states a large amount of yellow mucus came out. He thinks it came from his lungs. He has had some shakes in the past day. He has had some chills but no fevers. He is much more comfortable today. He has not coughed up any blood at any time. He has had mild chills, but no sweats. The patient states his appetite is not good. However, he lives alone. The patient smokes heavily and drinks heavily. Other complaints include approximately 8 watery bowel movements per day. This has been for a few months. He has not noticed any blood in his stool. He has stool incontinence. He denies having abdominal pain. He denies heartburn. He denies difficulty with urination. The patient states he does not sleep well. He always has to move his bowels during the nighttime. PAST SURGICAL HISTORY: Positive for cataract surgery bilaterally. He had T&A and dental surgery done. PAST MEDICAL HISTORY: 1. COPD. 2. Hypertension. 3. Peripheral vascular disease affecting the right leg. SOCIAL HISTORY: Tobacco 1 pack per day currently, but much of his life 2 packs per day. He smoked for 40 years. Alcohol use is described as 4 shots of rum per day. He also drinks some beer. ALLERGIES: None known allergies. FAMILY HISTORY: Positive only for hypertension and coronary artery disease. REVIEW OF SYSTEMS: Negative except for the above-mentioned complaints. Ten systems were reviewed. HOME MEDICATIONS: 1. Aspirin 81 mg daily. 2. Lisinopril 10 mg daily. 3. Vitamin B12 1000 mcg daily. PHYSICAL EXAMINATION: GENERAL: The patient is a 55-year-old male who was cooperative, alert and oriented. He was in no distress. VITAL SIGNS: As noted. He did cough occasionally. The patient's weight is 50.6 kilograms. His BMI is only 18.6. Temperature is 36.9. HEENT: Pupils were reactive. Implants were noted. Nares were clear. Mouth exam showed an absence of teeth. NECK: Palpation of the neck reveals no lymph nodes. HEART: Chest was of normal expansion. Heart rate was 63 per minute. The rhythm is regular. LUNGS: Lung brar revealed very harsh rhonchi on the right chest greater than the left chest. CHEST: There was prolongation to the expiratory phase of respirations. Palpation of the chest revealed no tenderness focally. Blood pressure is 157/78. Oxygen saturation was 99% on 4 liters. ABDOMEN: Soft. Bowel sounds were present and were normal. There was no tenderness to palpation or masses. EXTREMITIES: Showed no cyanosis, clubbing or edema. LABORATORY DATA: Chest x-ray on admission suggested emphysematous changes with an inability to exclude a small nodular density in the left mid lung field. CAT scan of the chest was done. There was no evidence of pulmonary embolic disease. Emphysema was noted. There were multiple areas of small patchy infiltrates in the right mid and lower lung field. This appears most consistent with pneumonic infiltrates. No definite nodules were seen. White count on admission was 13.36, today it is 9.48. Hemoglobin was 15.7 yesterday and today is 13.8. Platelets yesterday were 172,000 and today are 125,000. Coags were normal. D-dimer was greater than 450. Arterial blood gas showed a pH of 7.47 with a pCO2 of 43 and a pO2 of 156 done on 6 liter nasal cannula. Sodium was 140, potassium 3.2, chloride 99, bicarbonate 34. BUN was 3 with a creatinine of 0.64. Lactic acid level at 4:00 a.m. was 2.4 and on repeat was 3.8. Calcium was low at 7.0. Magnesium was high at 2.6. Bilirubin was slightly high at 1.3. AST was 87 and ALT was 36. Alkaline phosphatase was elevated at 217, normal will be up to 117. Yesterday, the alkaline phosphatase was 264. TSH was 0.546. Albumin was 2.3 and total protein 5.6. IMPRESSION: 1. Pneumonia, right middle lobe and right lower lobe. 2. Chronic obstructive pulmonary disease. 3. Weight loss with 30-pound weight loss as per patient. 4. Diarrhea. COMMENTS AND RECOMMENDATIONS: The patient is currently on vancomycin and Zosyn. I would think that should be adequate coverage. One might wonder if he has had some aspiration in light of his alcohol abuse. If so, the Zosyn would be good coverage. The scan likely will ultimately need to be repeated to be certain that there has been clearance. The patient is on prednisone 40 mg daily. He has q. 6 hours levalbuterol and ipratropium. I agree with those. The patient states he has had pulmonary functions done through [email or web address]. If feasible, would be nice to obtain a copy of those reports to see what his functional status is out. It is unclear; however how long ago this was done. The patient has been noncompliant. He has 2 inhalers at home, but he does not use. He likely will need some type of bronchodilator therapy at the time of discharge. He may need followup and evaluation of the loose stools and incontinence. I will defer this to the hospitalist. Thank you for asking me to assist in his care. MONALISA
[2016-06-24] MEDS: LACTATED RINGER'S 1000ML 1,000 ML IV SCH ×2 (01:07→11:42)
[2016-06-24] MEDS: LEVALBUTEROL 1.25MG/0.5ML NEB INH SCH ×4 (01:53→19:56)
[2016-06-24] MEDS: IPRATROPIUM BROMIDE NEB SOLN 0.02% 2.5 ML VIAL INH SCH ×4 (01:53→19:56)
[2016-06-24] MEDS: VANCOMYCIN INJ 750 MG in SODIUM CHLORIDE 0.9% 250ML 250 ML IV SCH ×2 (01:56→14:06)
[2016-06-24 05:37] LABS: BASO % 0.1 %; BASO ABS # 0.01 K/uL (0-0.2); COMPLETE YES; EOS % 0.1 %; HEMATOCRIT 37.4 % (42-52); IG% 0.3 %; LYMPH % 5.5 %; LYMPH ABS # 0.82 K/uL (1.2-3.4); MEAN CELL VOLUME 108.4 fL (80-100); MEAN CORPUSCULAR HEMOGLOBIN 36.2 pg (25-34); MEAN CORPUSCULAR HGB CONC 33.4 g/dl (32-36); MEAN PLATELET VOLUME 11.1 fL (7.4-10.4); MONO % 5.7 %; NEUT % 88.3 %; PLATELET COUNT 117 K/uL (130-400); RED BLOOD COUNT 3.45 M/uL (4.7-6.1); WHITE BLOOD COUNT 14.78 K/uL (4.8-10.8)
[2016-06-24] MEDS: PIPERACILL/TAZOBAC IV 3.375 GM in DEXTROSE 5% 100ML IV SCH ×3 (05:49→21:45)
[2016-06-24] MEDS: GABAPENTIN 400MG Q8H DOSE PO SCH ×3 (05:49→21:45)
[2016-06-24] MEDS: NICOTINE 21 MG/24 HR TDSY TD SCH (05:50)
[2016-06-24 06:14] LABS: BUN/CREATININE RATIO 8.3 (10-20); CALCIUM 7.1 mg/dl (8.5-10.1); CREATININE 0.62 mg/dl (0.60-1.40); MAGNESIUM 1.8 mg/dl (1.8-2.4); POTASSIUM 4.1 mmol/L (3.5-5.1)
[2016-06-24] MEDS: INSULIN ASPART 100 UNITS/ML 3 ML PEN SC SCH ×4 (07:00→20:38)
[2016-06-24] MEDS: THIAMINE HCL 100 MG TAB PO SCH (07:44)
[2016-06-24] MEDS: BOOST BREEZE NUTRITION DRINK 1 BOX PO SCH ×2 (07:44→17:00)
[2016-06-24] MEDS: MULTIVITAMIN TAB PO SCH (07:45)
[2016-06-24] MEDS: ASPIRIN 81 MG ECTAB PO SCH (07:46)
[2016-06-24] MEDS: LISINOPRIL 10 MG TAB PO SCH (07:47)
[2016-06-24] MEDS: ENOXAPARIN 30 MG/0.3 ML SYR SC SCH (07:48)
[2016-06-24] MEDS: MAGNESIUM CHLORIDE 64MG DELAYED REL TAB PO SCH (07:48)
--- NOTE | 2016-06-24 10:57 | PROGRESS NOTE ---
DATE: 06/24/2016 DATE: 06/24/2016. PROBLEM LIST: Includes: 1. Pneumonia, right middle lobe and right lower lobe. 2. Chronic obstructive pulmonary disease. 3. Unexplained weight loss. 4. Tobacco use. SUBJECTIVE: The patient was seen in room 229 bed 2. He is a 55-year-old male with history of COPD and was admitted for pleuritic right-sided chest pain. It appears that he has a pneumonia. Dr. Toro did do the initial consultation yesterday. The patient reports that he is feeling better today. He states that his breathing is improved. He states that the right-sided chest pain as fairly gone. He still has a little bit of discomfort in central area. He states that it is much improved; however, he states that he is still coughing some. He does get a little bit of mucus up when he coughs. He states that he still is wheezing, but he is not sure how much of that is normal because he has had wheezing even prior to getting sick. He states that he is less short of breath. He continues to wear oxygen. He states that he was out walking around and did pretty well. He states that he still is very shaky, feels a little bit weak and tired yet. He states he did have a little bit of difficulty sleeping last night. He states that he has been doing well with the nicotine patch and states that he is going to try and stop smoking. He states that he can get free nicotine patches through work. He has not had any difficulty with fever or chills that he is aware of. No sweats, no other concerns or problems. His appetite is normal. No nausea or vomiting. No difficulty voiding. No swelling in his extremities. OBJECTIVE: GENERAL: The patient is a 55-year-old male in no acute distress sitting at the bedside. He is alert and oriented x3. Mood is good. Affect is good. VITAL SIGNS: Temp 36.7, pulse 71, respirations 20, blood pressure is 174/93, pulse ox 99% on 3 liters. HEAD, EYES, EARS, NOSE, AND THROAT: Normocephalic, atraumatic. Pupils equal, round and reactive to light and accommodation. Extraocular movements are intact. [employer] moist gingival and buccal mucosa. NECK: Supple. No mass. No adenopathy. No bruit. CHEST: The patient still has some coarse wheezes diffusely throughout. Right side seems to be more noticeable than the left. No rales noted. CARDIOVASCULAR: Regular rate and rhythm. No murmurs, gallops or rubs appreciated. ABDOMEN: Bowel sounds are present. Abdomen soft, nontender. No guarding, rigidity or organomegaly. EXTREMITIES: No cyanosis or clubbing noted. No edema noted. NEUROLOGIC: Cranial nerves II through XII are intact. No focal deficit noted. LABORATORY DATA: Shows white count 14,000, H\T\H 12.5 and 37.4, platelet count 117,000. Sputum Gram stain showing no organisms. Culture is pending. Blood cultures to date are negative. No new imaging data. IMPRESSION: 1. This is a 55-year-old male who has a significant smoking history of predominantly 2 packs a day for 40 years who presented with right-sided chest pain and was found to have pneumonia located in the right middle lobe, right lower lobe. At this point, the patient is on vancomycin and Zosyn. In reviewing the chart, it looks like the patient had a syncopal episode prior to coming in and as Dr. Toro mentioned with his alcohol use and this syncopal episode does raise consideration for aspiration. Because of this Zosyn is to be continued. In regards to his prednisone the patient is on 40 mg daily. Would recommend to continue this. Also continue pulmonary toilet in the form of the levalbuterol and ipratropium. 2. Chronic obstructive pulmonary disease. The patient is a longtime smoker. We do not have any current pulmonary function testing. I would recommend this be done as an outpatient. 3. Tobacco use. The patient currently is on nicotine patches and seems to be doing well. I did discuss with him stopping smoking, try to encourage him to continue to do so. He states that he is going to get patches through his place of employment and see if he can work with them. Otherwise continue current treatment as they are. Will continue to follow through hospitalization.
--- NOTE | 2016-06-24 11:43 | Cardiology Follow-Up ---
Subjective General Date of Service: June 24, 2016. Chief Complaint: pneumonia Pt evaluation today including: conversation w/ patient, physical exam, chart review, lab review, review of studies, review of inpatient medication list History of Present Illness Patient sitting up in chair today, feeling much better. Denies recurrent dizziness/syncope or near syncope. no sense of palpitations. Pleuritic chest pain resolved. No SOB currently. Cough with sputum production unchanged. Telemetry reviewed - no recurrent VT/Torsades since yesterday 06/23/16 in the AM hours. Allergies Coded Allergies: No Known Allergies (Unverified , 06/22/16) Social History Smoking Status: Former Smoker Hx Alcohol Use - Type And Amou: Yes Hx Substance Use - Type And Am: No Problem List Medical Problems: (1) COPD (chronic obstructive pulmonary disease) Status: Chronic (2) Hypoxia Status: Acute (3) Pneumonia Status: Acute (4) Right-sided chest pain Status: Acute Review of Systems Respiratory: + cough, + sputum, No dyspnea at rest, No dyspnea on exertion, No hemoptysis, No shortness of breath, No wheezing Cardiac: No PND, No chest pain, No edema, No orthopnea, No palpitations Physical Exam Vital Signs Last Vital Signs Documentation Date Time Temp Pulse Resp B/P Pulse Ox O2 Delivery O2 Flow Rate FiO2 06/24/16 10:58 37.0 84 20 162/96 95 Nasal Cannula 1.0 Physical Exam Constitutional: General Apperance: too thin Level of Distress: NAD, acutely ill, chronically ill Psychiatric: Mental Status: active & alert Orientation: to time, to place, to person Head: normocephalic Eyes: Pupils: PERRLA Neck: supple Lungs: Auscultation: no wheezing, no rales/crackles, no rhonchi, decreased breath sounds Cardiovascular: Heart Auscultation: RRR, normal S1, normal S2, no murmurs Abdomen: Bowel Sounds: normal Inspection & Palpation: soft, non-distended Extremities: no edema Neurologic: Gait & Station: pertinent finding (tremors noted) Assessment and Plan Assessment and Plan 1. Admission right sided pneumonia/sepsis 2. Ventricular tachycardia/Torsades in setting of low mag, hypokalemia, prolonged QT 3. Hypertension - borderline 4. Chronic alcohol use 5. Chronic tobacco abuse 6. COPD PLAN: Electrolytes improved. No recurrent arrhythmias noted. Improved QT/QTc on repeat EKG's. Continue antibiotics and treatment for pneumonia. Avoid medications with tendency to prolong QT Treat for alcohol withdrawal. May benefit from ischemic work up as outpatient. However, it is likely the VT/ Torsades was caused by severe electrolyte imbalance and acute illness. Code status was changed to Full Code. Smoking and alcohol cessation strongly encouraged and discussed with the patient. IF BP remains elevated, increase lisinopril dose. Case discussed with Dr. Cruz. Will follow. Cardiology attending physician: Patient seen and examined at the bedside. +tremor. No CP. QTc WNL on AM ECG. No recurrent TDP. No other complaints at this time. PE: VSS. Gen: NAD, AAOx3. Underweight. Tremulous. Heart: regular, normal S1 and S2. No murmur, rub, or gallop appreciated. The lungs demonstrate diminished breath sounds bilaterally. No rales or rhonchi. No expiratory wheeze. The abdomen is soft and nontender no rebound or guarding. Extension is warm and dry without clubbing or cyanosis. No edema appreciated. A/P: Agree with above PAC history, physical exam, assessment, and plan. Patient admitted with pneumonia and possible aspiration the setting of excessive alcohol intake. 2 episodes of torsade the points recorded overnight associated with acquired long QT due to electrolyte derangement. Magnesium and potassium have been supplemented. Oral slow-mag supplement ordered today. His rhythm has been stable over the past 24 hours. BP elevated likely related to ETOH withdrawal. Will titrate lisinopril to 20mg daily. Treatment of alcohol withdrawal as per the internal medicine service. Electrolytes will be followed closely and supplemented as needed. Will continue to follow closely during hospitalization. Kvng Cruz DO, [facility] Laboratory Results Last 24 Hours Test 06/23/16 11:47 06/23/16 12:27 06/23/16 16:20 06/23/16 16:30 Bedside Glucose 125 mg/dl 150 mg/dl Lactic Acid Level 3.8 mmol/L 2.7 mmol/L Troponin I 0.018 ng/ml Test 06/23/16 20:30 06/23/16 20:43 06/24/16 05:10 06/24/16 06:29 Potassium Level 3.6 mmol/L 4.1 mmol/L Lactic Acid Level 2.9 mmol/L Magnesium Level 1.8 mg/dl 1.8 mg/dl Bedside Glucose 221 mg/dl 78 mg/dl White Blood Count 14.78 K/uL Red Blood Count 3.45 M/uL Hemoglobin 12.5 g/dL Hematocrit 37.4 % Mean Corpuscular Volume 108.4 fL Mean Corpuscular Hemoglobin 36.2 pg Mean Corpuscular Hemoglobin Concent 33.4 g/dl Platelet Count 117 K/uL Mean Platelet Volume 11.1 fL Neutrophils (%) (Auto) 88.3 % Lymphocytes (%) (Auto) 5.5 % Monocytes (%) (Auto) 5.7 % Eosinophils (%) (Auto) 0.1 % Basophils (%) (Auto) 0.1 % Neutrophils # (Auto) 13.06 K/uL Lymphocytes # (Auto) 0.82 K/uL Monocytes # (Auto) 0.84 K/uL Eosinophils # (Auto) 0.01 K/uL Basophils # (Auto) 0.01 K/uL RDW Standard Deviation 59.7 fL RDW Coefficient of Variation 15.2 % Immature Granulocyte % (Auto) 0.3 % Immature Granulocyte # (Auto) 0.04 K/uL Sodium Level 141 mmol/L Chloride Level 103 mmol/L Carbon Dioxide Level 34 mmol/L Anion Gap 4.0 mmol/L Blood Urea Nitrogen 5 mg/dl Creatinine 0.62 mg/dl Est Creatinine Clear Calc Drug Dose 95.2 ml/min Estimated GFR () 128.5 Estimated GFR (Non- 110.9 BUN/Creatinine Ratio 8.3 Random Glucose 81 mg/dl Calcium Level 7.1 mg/dl Vitamin B12 Level 1103 pg/mL
[2016-06-24] MEDS ORDERED: MAGNESIUM CHLORIDE 64MG DELAYED REL TAB PO ONE (12:30)
--- NOTE | 2016-06-24 12:35 | Progress Note ---
Internal Med Progress Note Date of Service: June 24, 2016. Provider Documentation: SUBJECTIVE: Patient is seen and examined at bedside. States pleuritic chest pain resolved. Cough, SOB is improving. Had 2 loose BMs today. Denies any abd pain,nausea, vomiting. Offers no other complaints. OBJECTIVE: Vital Signs-as noted below Physical Exam: General Appearance:Thin, fragile, chronic ill appearing, no apparent distress Head: normocephalic, Atraumatic Eyes: normal inspection, EOMI, PERRL Neck: supple, Trachea midline Respiratory/Chest: Decreased breath sounds, CTA, No accessory muscle use Cardiovascular: S1, S2, No murmur Abdomen/GI:Soft, Non tender, Bowel sounds present Extremities/Musculoskelatal:normal inspection, no edema Neurologic/Psych:AAOX3, grossly no focal neurological deficits Skin: normal color, warm Lab data as noted below. ASSESSMENT & PLAN: Acute on chronic hypoxemic respiratory failure: Secondary to COPD exacerbation and Multifocal pneumonia Possible aspiration given h/o alcoholic abuse Admit being non compliance with meds/Inhalers Not on oxygen at baseline CTA: No PE Continue respiratory support ECHO:wnl Continue duonebs, antibiotics, Prednisone Pulmonology consulted Oxygen requirement trending down Severe sepsis: Secondary to Multifocal pneumonia/Possible Aspiration Lactic acidosis: Likely secondary to above and liver disease S/P IV fluids Continue Vanco and Zosyn Follow up Blood/Sputum cultures: Blood cultures pending to date Stool for c.diff:pending Check Procalcitonin Leukocytosis: on Prednisone, Afebrile Torsades: Monitor Electrolytes ECHO:EF: 60-65% Appreciate Cardiology help Hypertension: Elevated likely secondary to alcohol withdrawal Continue Lisinopril Monitor Hypokalemia/Hypomagnesemia: Likely secondary to diarrhea. S/P replacement, monitor electrolytes Malnutrition: BMI:18.6 Nutrition consult Tobacco abuse: [place] Alcohol Abuse disorder: Alcohol level:91 Continue Gabapentin per protocol Continue thiamine, folic acid Watch for withdrawal [place] PVD as per records Continue Aspirin DVT Px: Lovenox subQ. Code Status: Full Code Discussed with patient on 06/23/16 PROCEDURES: CTA: 1. Study is negative for pulmonary embolus. 2. Emphysematous change with moderate peribronchial thickening. 3. Multifocal small infiltrative changes of the right lower lobe as well as right midlung region 4. Although statistically most likely consistent with an inflammatory process, short-term CT follow-up is recommended to exclude a persistent groundglass nodule. ECHO: * The left ventricle is normal in size. * There is borderline concentric left ventricular hypertrophy. * Left ventricular systolic function is normal. * No regional wall motion abnormalities noted. * Ejection Fraction = 60-65%. * Aortic valve sclerosis mild, without significant aortic valvular stenosis. * There is no pericardial effusion. Vital Signs: Date Time Temp Pulse Resp B/P Pulse Ox O2 Delivery O2 Flow Rate FiO2 06/24/16 10:58 37.0 84 20 162/96 95 Nasal Cannula 1.0 06/24/16 09:14 84 95 06/24/16 08:00 Nasal Cannula 1.0 06/24/16 07:27 36.7 71 20 174/93 99 Nasal Cannula 3.0 06/24/16 07:05 73 16 99 Nasal Cannula 3.0 06/24/16 04:00 Nasal Cannula 4.0 06/24/16 03:17 37.1 74 21 158/85 99 Nasal Cannula 3.0 06/24/16 01:53 78 16 96 Nasal Cannula 3.0 06/24/16 00:00 Nasal Cannula 4.0 06/23/16 23:01 36.8 75 24 166/84 99 Nasal Cannula 3.0 06/23/16 20:00 Nasal Cannula 4.0 06/23/16 19:53 71 18 98 Nasal Cannula 3.0 06/23/16 19:46 37.1 64 18 155/80 100 Nasal Cannula 3.0 06/23/16 15:45 Nasal Cannula 4.0 06/23/16 15:00 36.7 70 18 153/87 99 Nasal Cannula 3.0 06/23/16 14:05 78 12 99 Nasal Cannula 4.0 Lab Results: Results Past 24 Hours Test 06/23/16 16:20 06/23/16 16:30 06/23/16 20:30 06/23/16 20:43 Range/Units Bedside Glucose 150 221 70-99 mg/dl Lactic Acid Level 2.7 2.9 0.4-2.0 mmol/L Troponin I 0.018 0-0.045 ng/ml Potassium Level 3.6 3.5-5.1 mmol/L Magnesium Level 1.8 1.8-2.4 mg/dl Test 06/24/16 05:10 06/24/16 06:29 06/24/16 11:13 Range/Units White Blood Count 14.78 4.8-10.8 K/uL Red Blood Count 3.45 4.7-6.1 M/uL Hemoglobin 12.5 14.0-18.0 g/dL Hematocrit 37.4 42-52 % Mean Corpuscular Volume 108.4 80-100 fL Mean Corpuscular Hemoglobin 36.2 25-34 pg Mean Corpuscular Hemoglobin Concent 33.4 32-36 g/dl Platelet Count 117 130-400 K/uL Mean Platelet Volume 11.1 7.4-10.4 fL Neutrophils (%) (Auto) 88.3 % Lymphocytes (%) (Auto) 5.5 % Monocytes (%) (Auto) 5.7 % Eosinophils (%) (Auto) 0.1 % Basophils (%) (Auto) 0.1 % Neutrophils # (Auto) 13.06 1.4-6.5 K/uL Lymphocytes # (Auto) 0.82 1.2-3.4 K/uL Monocytes # (Auto) 0.84 0.11-0.59 K/uL Eosinophils # (Auto) 0.01 0-0.5 K/uL Basophils # (Auto) 0.01 0-0.2 K/uL RDW Standard Deviation 59.7 36.4-46.3 fL RDW Coefficient of Variation 15.2 11.5-14.5 % Immature Granulocyte % (Auto) 0.3 % Immature Granulocyte # (Auto) 0.04 0.00-0.02 K/uL Sodium Level 141 136-145 mmol/L Potassium Level 4.1 3.5-5.1 mmol/L Chloride Level 103 98-107 mmol/L Carbon Dioxide Level 34 21-32 mmol/L Anion Gap 4.0 3-11 mmol/L Blood Urea Nitrogen 5 7-18 mg/dl Creatinine 0.62 0.60-1.40 mg/dl Est Creatinine Clear Calc Drug Dose 95.2 ml/min Estimated GFR () 128.5 Estimated GFR (Non- 110.9 BUN/Creatinine Ratio 8.3 10-20 Random Glucose 81 70-99 mg/dl Calcium Level 7.1 8.5-10.1 mg/dl Magnesium Level 1.8 1.8-2.4 mg/dl Vitamin B12 Level 1103 211-911 pg/mL Bedside Glucose 78 99 70-99 mg/dl Microbiology Results 06/23/16 Gram Stain - Final, Resulted 06/23/16 Sputum Culture, Resulted Pending
[2016-06-24] MEDS ORDERED: METOPROLOL TARTRATE 1 MG/ML VIAL IV PRN (15:15)
[2016-06-24] MEDS ORDERED: ENALAPRILAT IV 1.25 MG in DEXTROSE 5% 25ML 25 ML IV PRN (15:30)
[2016-06-24] MEDS ORDERED: AMLODIPINE BESYLATE 5 MG TAB PO ONE (15:30)
[2016-06-24] MEDS: BOOST VANILLA PO SCH ×2 (20:44)
[2016-06-25] VITALS (12 sets, daily range): BP systolic 130–201; BP diastolic 82–114; PULSE 72–93; TEMP 36.7–36.8; O2SAT 95–98
[2016-06-25] MEDS ORDERED: CLONIDINE HCL 0.1 MG TAB PO PRN (01:00)
[2016-06-25] MEDS ORDERED: METOPROLOL TARTRATE 1 MG/ML VIAL IV. PRN (01:00)
[2016-06-25] MEDS ORDERED: CLONIDINE HCL 0.1 MG TAB PO ONE (01:00)
[2016-06-25] MEDS ORDERED: VANCOMYCIN TROUGH ONE (01:30)
[2016-06-25] MEDS: VANCOMYCIN INJ 750 MG in SODIUM CHLORIDE 0.9% 250ML 250 ML IV SCH (01:49)
[2016-06-25] MEDS: IPRATROPIUM BROMIDE NEB SOLN 0.02% 2.5 ML VIAL INH SCH ×4 (02:00→19:25)
[2016-06-25] MEDS: LEVALBUTEROL 1.25MG/0.5ML NEB INH SCH ×4 (02:00→19:25)
[2016-06-25] MEDS: PIPERACILL/TAZOBAC IV 3.375 GM in DEXTROSE 5% 100ML IV SCH ×3 (06:20→22:07)
[2016-06-25] MEDS: LACTATED RINGER'S 1000ML 1,000 ML IV SCH (06:21)
[2016-06-25] MEDS: INSULIN ASPART 100 UNITS/ML 3 ML PEN SC SCH (07:00)
[2016-06-25] MEDS: GABAPENTIN 400MG Q12H DOSE PO SCH ×2 (08:17→21:09)
[2016-06-25] MEDS: ASPIRIN 81 MG ECTAB PO SCH (08:18)
[2016-06-25] MEDS: THIAMINE HCL 100 MG TAB PO SCH (08:20)
[2016-06-25] MEDS: LISINOPRIL 10 MG TAB PO SCH (08:20)
[2016-06-25] MEDS: NICOTINE 21 MG/24 HR TDSY TD SCH (08:21)
[2016-06-25] MEDS: MULTIVITAMIN TAB PO SCH (08:22)
[2016-06-25] MEDS: ENOXAPARIN 30 MG/0.3 ML SYR SC SCH (08:28)
[2016-06-25 08:29] LABS: CREATININE 0.5 mg/dl (0.60-1.40); MAGNESIUM 1.7 mg/dl (1.8-2.4)
[2016-06-25] MEDS: BOOST VANILLA PO SCH ×4 (08:32→21:09)
[2016-06-25 08:40] LABS: CALCIUM 8.4 mg/dl (8.5-10.1)
--- NOTE | 2016-06-25 09:09 | Progress Note ---
Internal Med Progress Note Date of Service: June 25, 2016. Provider Documentation: SUBJECTIVE: Patient is seen and examined at bedside. Reports feeling well today. States having intermittent dry cough. Denies chest pain, SOB, wheezing. Denies any abd pain,nausea, vomiting. Offers no other complaints. OBJECTIVE: Vital Signs-as noted below Physical Exam: General Appearance:Thin, fragile, chronic ill appearing, no apparent distress Head: normocephalic, Atraumatic Eyes: normal inspection, EOMI, PERRL Neck: supple, Trachea midline Respiratory/Chest: Decreased breath sounds, CTA Cardiovascular: S1, S2, No murmur Abdomen/GI:Soft, Non tender, Bowel sounds present Extremities/Musculoskelatal:normal inspection, no edema Neurologic/Psych:AAOX3, grossly no focal neurological deficits Skin: normal color, warm Lab data as noted below. ASSESSMENT & PLAN: Acute on chronic hypoxemic respiratory failure: Secondary to COPD exacerbation and Multifocal pneumonia Possible aspiration given h/o alcoholic abuse Admit being non compliance with meds/Inhalers Not on oxygen at baseline CTA: No PE ECHO:wnl Continue duonebs, antibiotics, Prednisone Currently saturating well on room air Appreciate Pulmonology input Severe sepsis: Secondary to Multifocal pneumonia/Possible Aspiration Lactic acidosis: Likely secondary to above and liver disease S/P IV fluids Continue Zosyn. Will DC Vancomycin Blood/Sputum cultures: No growth to date Stool for c.diff: Negative Procalcitonin:WNL Leukocytosis: on Prednisone, Afebrile Torsades: Monitor Electrolytes ECHO:EF: 60-65% Appreciate Cardiology help Will replace magnesium Hypertension: Elevated likely secondary to alcohol withdrawal Continue Lisinopril Vasotec PRN Monitor Hypokalemia/Hypomagnesemia: Likely secondary to diarrhea S/P replacement, monitor electrolytes Malnutrition: BMI:18.6 Nutrition consult Tobacco abuse: Food And Beverage Checker Alcohol Abuse disorder: Alcohol level:91 Continue Gabapentin per protocol Continue thiamine, folic acid Watch for withdrawal Counselled to quit drinking PVD as per records Continue Aspirin DVT Px: Lovenox subQ. Code Status: Full Code Discussed with patient on 06/23/16 PROCEDURES: CTA: 1. Study is negative for pulmonary embolus. 2. Emphysematous change with moderate peribronchial thickening. 3. Multifocal small infiltrative changes of the right lower lobe as well as right midlung region 4. Although statistically most likely consistent with an inflammatory process, short-term CT follow-up is recommended to exclude a persistent groundglass nodule. ECHO: * The left ventricle is normal in size. * There is borderline concentric left ventricular hypertrophy. * Left ventricular systolic function is normal. * No regional wall motion abnormalities noted. * Ejection Fraction = 60-65%. * Aortic valve sclerosis mild, without significant aortic valvular stenosis. * There is no pericardial effusion. Vital Signs: Date Time Temp Pulse Resp B/P Pulse Ox O2 Delivery O2 Flow Rate FiO2 06/25/16 07:28 36.7 93 20 146/90 95 06/25/16 07:08 83 16 96 Room Air 06/25/16 04:12 36.7 75 18 130/82 95 Room Air 06/25/16 04:00 Room Air 06/25/16 02:00 73 16 97 Room Air 06/25/16 01:53 72 182/100 06/25/16 01:00 72 201/114 06/25/16 00:00 Room Air 06/24/16 23:16 36.6 90 18 184/101 95 Room Air 06/24/16 20:00 Room Air 06/24/16 20:00 78 16 98 Room Air 06/24/16 19:08 37.0 77 18 168/91 97 Room Air 06/24/16 16:00 Room Air 06/24/16 15:15 37.0 84 16 161/86 97 Room Air 06/24/16 14:26 70 16 99 Nasal Cannula 3.0 06/24/16 12:00 Nasal Cannula 1.0 06/24/16 10:58 37.0 84 20 162/96 95 Nasal Cannula 1.0 Lab Results: Results Past 24 Hours Test 06/24/16 11:13 06/24/16 16:12 06/24/16 20:17 06/25/16 01:40 Range/Units Bedside Glucose 99 105 126 70-99 mg/dl Vancomycin Level Trough 9.6 SEE COMMENT mcg/ml Test 06/25/16 06:37 06/25/16 07:24 Range/Units Bedside Glucose 78 70-99 mg/dl Sodium Level 139 136-145 mmol/L Potassium Level 4.0 3.5-5.1 mmol/L Chloride Level 102 98-107 mmol/L Carbon Dioxide Level 29 21-32 mmol/L Anion Gap 8.0 3-11 mmol/L Blood Urea Nitrogen 6 7-18 mg/dl Creatinine 0.50 0.60-1.40 mg/dl Est Creatinine Clear Calc Drug Dose 129.0 ml/min Estimated GFR () 140.4 Estimated GFR (Non- 121.1 BUN/Creatinine Ratio 11.0 10-20 Random Glucose 77 70-99 mg/dl Calcium Level 8.4 8.5-10.1 mg/dl Magnesium Level 1.7 1.8-2.4 mg/dl Microbiology Results 06/24/16 C.difficile Toxin B Gene (PCR) - Final, Complete No C. difficile toxin B gene detected
[2016-06-25] MEDS ORDERED: MAGNESIUM CHLORIDE 64MG DELAYED REL TAB PO SCH (09:15)
[2016-06-25] MEDS ORDERED: MAGNESIUM OXIDE 400 MG TAB PO ONE (10:16)
[2016-06-25] MEDS ORDERED: LISINOPRIL 10 MG TAB PO ONE (10:19)
--- NOTE | 2016-06-25 12:24 | PROGRESS NOTE ---
DATE: 06/25/2016 DATE: 06/25/2016. PROBLEM LIST: 1. Pneumonia, right middle lobe, right lower lobe. 2. Chronic obstructive pulmonary disease. 3. Unexplained weight loss. 4. Tobacco use. SUBJECTIVE: The patient was seen in room 229 bed 2. The patient is a 55-year-old male with a history of COPD, admitted for pleuritic right-sided chest pain. The patient reports he has been doing well. He states that the chest pain is gone. He states he can now take a deep breath in without having the chest pain. He can take a deep breath in. He is not having much cough. He states that he is getting some mucus up but he is unsure of the color. He states that he still does get a little bit of wheezing as well. He is less short of breath. He continues to wear oxygen. He has no chest pain. No palpitations. No chest pressure. He is not having any fever or chills, no sweats. His appetite is doing well. No nausea or vomiting, no indigestion or heartburn. He has not had any difficulty with his bowels. No difficulty voiding. No swelling in his extremities. Overall, he is feeling much better than he was previously. He is using nicotine patches and states that that has helped him significantly. He states that he thinks about having a cigarette, but he he does not crave it. He states that he feels that thinking about it is happening during times when he would normally have one and it is more of a habit. He denies any other concerns or problems. OBJECTIVE: GENERAL: The patient is a 55-year-old male sitting at bedside in no acute distress. He is alert and oriented x3. Mood is good. Affect is good. VITAL SIGNS: Temp 36.7, pulse 93, respirations 20, blood pressure is 146/90, pulse ox 95% on room air. HEAD, EYES, EARS, NOSE, AND THROAT: Normocephalic, atraumatic. Pupils equal, round react to light and accommodation. Extraocular movements are intact. [place] moist gingival and buccal mucosa. NECK: Supple. No mass. No adenopathy. No bruit. CHEST: Still with a some faint wheeze on exhalation in the right but much improved compared to previous. No rale or rhonchi noted. CARDIOVASCULAR: Regular rate and rhythm. No murmurs, gallops or rubs noted. ABDOMEN: Bowel sounds present. Abdomen soft, nontender. No guarding, rigidity or organomegaly. EXTREMITIES: No erythema or edema. NEUROLOGIC: Cranial nerves II through XII are intact. No focal deficit noted. LABORATORY DATA: BUN 6, creatinine 0.5. Vancomycin trough 9.6. Blood culture is negative to date. Sputum culture showing light normal [place]. C. diff is negative. IMPRESSION: A 55-year-old male with right-sided pneumonia, question if maybe aspiration. The patient is improving significantly. Breathing is doing better. Overall feeling much improved at this time. His sputum cultures have been negative. His blood cultures are negative. I think that we can narrow the antibiotic down to Zosyn for now. I would recommend to continue his steroids. Currently is on prednisone 40 mg daily, I think that that is appropriate. Continue aggressive pulmonary toilet. Continue nicotine patch for smoking. I do feel the patient has shown significant signs of improvement. He is being transferred to regular medical floor today and then hopefully within the next 24-48 hours, he can be discharged to home. May be beneficial to try and set him up with home nursing or home PT. At this point, will continue to follow through hospitalization.
--- NOTE | 2016-06-25 13:21 | Cardiology Follow-Up ---
Subjective General Date of Service: June 25, 2016. Chief Complaint: pneumonia Pt evaluation today including: conversation w/ patient, physical exam, chart review, lab review, review of studies, conversation w/ curriculum consultant, review of inpatient medication list History of Present Illness Patient feeling well this AM. Pleuritic chest pain resolved. SOB improving. Cough improving. No palpitations or tachy palpitations. No dizziness, syncope or near-syncope. Telemetry reviewed -no recurrent ventricular tachycardia / torsades. predominant rhythm is normal sinus rhythm with rare PAC/PVC. Allergies Coded Allergies: No Known Allergies (Unverified , 06/22/16) Social History Smoking Status: Former Smoker Hx Alcohol Use - Type And Amou: Yes Hx Substance Use - Type And Am: No Problem List Medical Problems: (1) COPD (chronic obstructive pulmonary disease) Status: Chronic (2) Hypoxia Status: Acute (3) Pneumonia Status: Acute (4) Right-sided chest pain Status: Acute Review of Systems Respiratory: + cough, No dyspnea at rest, No hemoptysis, No shortness of breath , No sputum, No wheezing Cardiac: No PND, No chest pain, No edema, No orthopnea, No palpitations Physical Exam Vital Signs Last Vital Signs Documentation Date Time Temp Pulse Resp B/P Pulse Ox O2 Delivery O2 Flow Rate FiO2 06/25/16 11:32 36.7 84 20 152/92 97 Room Air 06/25/16 10:42 1.0 Physical Exam Constitutional: General Apperance: too thin Level of Distress: NAD, acutely ill, chronically ill Psychiatric: Mental Status: active & alert Orientation: to time, to place, to person Head: normocephalic Eyes: Pupils: PERRLA Neck: supple Lungs: Auscultation: no wheezing, no rales/crackles, no rhonchi, decreased breath sounds Cardiovascular: Heart Auscultation: RRR, normal S1, normal S2, no murmurs Abdomen: Bowel Sounds: normal Inspection & Palpation: soft, non-distended Extremities: no edema Neurologic: Gait & Station: pertinent finding (tremors noted) Assessment and Plan Assessment and Plan 1. Admission right sided pneumonia/sepsis 2. Ventricular tachycardia/Torsades in setting of low mag, hypokalemia, prolonged QT 3. Hypertension - borderline 4. Chronic alcohol use 5. Chronic tobacco abuse 6. COPD PLAN: magnesium level lower this morning. Initiate med ox 400 mg twice daily. Repeat magnesium level tomorrow a.m. blood pressure remains elevated. May be secondary to alcohol withdrawal. P.r.n. clonidine has been used. Will increase lisinopril to 20 mg daily for now No recurrent arrhythmias noted. Improved QT/QTc on repeat EKG's. Continue antibiotics and treatment for pneumonia. Avoid medications with tendency to prolong QT Treat for alcohol withdrawal. May benefit from ischemic work up as outpatient. However, it is likely the VT/ Torsades was caused by severe electrolyte imbalance and acute illness. Code status was changed to Full Code. Smoking and alcohol cessation strongly encouraged and discussed with the patient. Case discussed with Dr. Cruz. Will follow. Cardiology attending physician: Patient seen and examined at the bedside. Tremor improved. No CP. patient offers no complaints. PE: VSS. Gen: NAD, AAOx3. Underweight. Tremulous. Heart: regular, normal S1 and S2. No murmur, rub, or gallop appreciated. The lungs demonstrate diminished breath sounds bilaterally. No rales or rhonchi. No expiratory wheeze. The abdomen is soft and nontender no rebound or guarding. Extension is warm and dry without clubbing or cyanosis. No edema appreciated. A/P: Agree with above PAC history, physical exam, assessment, and plan. Anitibiotics per IM. Increase lisinopril. Replace electrolytes as needed. Kvng Cruz DO, [facility] Laboratory Results Last 24 Hours Test 06/24/16 16:12 06/24/16 20:17 06/25/16 01:40 06/25/16 06:37 Bedside Glucose 105 mg/dl 126 mg/dl 78 mg/dl Vancomycin Level Trough 9.6 mcg/ml Test 06/25/16 07:24 Sodium Level 139 mmol/L Potassium Level 4.0 mmol/L Chloride Level 102 mmol/L Carbon Dioxide Level 29 mmol/L Anion Gap 8.0 mmol/L Blood Urea Nitrogen 6 mg/dl Creatinine 0.50 mg/dl Est Creatinine Clear Calc Drug Dose 129.0 ml/min Estimated GFR () 140.4 Estimated GFR (Non- 121.1 BUN/Creatinine Ratio 11.0 Random Glucose 77 mg/dl Calcium Level 8.4 mg/dl Magnesium Level 1.7 mg/dl
[2016-06-25] MEDS: MAGNESIUM OXIDE 400 MG TAB PO SCH (21:09)
[2016-06-26] VITALS (7 sets, daily range): BP systolic 141–169; BP diastolic 94–96; PULSE 83–111; TEMP 36.7–36.9; O2SAT 90–99
[2016-06-26] MEDS: IPRATROPIUM BROMIDE NEB SOLN 0.02% 2.5 ML VIAL INH SCH ×4 (03:00→20:40)
[2016-06-26] MEDS: LEVALBUTEROL 1.25MG/0.5ML NEB INH SCH ×4 (03:00→20:40)
[2016-06-26] MEDS: PIPERACILL/TAZOBAC IV 3.375 GM in DEXTROSE 5% 100ML IV SCH ×3 (05:31→23:03)
[2016-06-26 08:06] LABS: COMPLETE YES; EOS % 0.4 %; HEMATOCRIT 39.6 % (42-52); IG% 0.3 %; LYMPH ABS # 0.91 K/uL (1.2-3.4); MEAN CELL VOLUME 107.6 fL (80-100); MEAN CORPUSCULAR HEMOGLOBIN 36.7 pg (25-34); MEAN CORPUSCULAR HGB CONC 34.1 g/dl (32-36); MEAN PLATELET VOLUME 11.5 fL (7.4-10.4); NEUT % 72.3 %; PLATELET COUNT 139 K/uL (130-400); RED BLOOD COUNT 3.68 M/uL (4.7-6.1); WHITE BLOOD COUNT 7.59 K/uL (4.8-10.8)
[2016-06-26] MEDS: ENOXAPARIN 30 MG/0.3 ML SYR SC SCH (08:18)
[2016-06-26] MEDS: BOOST VANILLA PO SCH ×4 (08:18→21:24)
[2016-06-26] MEDS: THIAMINE HCL 100 MG TAB PO SCH (08:19)
[2016-06-26] MEDS: MULTIVITAMIN TAB PO SCH (08:19)
[2016-06-26] MEDS: NICOTINE 21 MG/24 HR TDSY TD SCH (08:19)
[2016-06-26] MEDS: MAGNESIUM OXIDE 400 MG TAB PO SCH ×2 (08:19→21:18)
[2016-06-26] MEDS: ASPIRIN 81 MG ECTAB PO SCH (08:20)
[2016-06-26] MEDS: LISINOPRIL 10 MG TAB PO SCH (08:20)
[2016-06-26] MEDS ORDERED: GABAPENTIN 400MG X1 DOSE PO SCH (09:00)
[2016-06-26 09:07] LABS: BUN/CREATININE RATIO 11.8 (10-20); CREATININE 0.63 mg/dl (0.60-1.40); MAGNESIUM 1.8 mg/dl (1.8-2.4); POTASSIUM 4.1 mmol/L (3.5-5.1)
[2016-06-26] MEDS ORDERED: METOPROLOL TARTRATE 25 MG TAB PO ONE (10:39)
--- NOTE | 2016-06-26 10:44 | Progress Note ---
Internal Med Progress Note Date of Service: June 26, 2016. Provider Documentation: SUBJECTIVE: Patient is seen and examined at bedside. Hypertensive and Tachycardic this morning but asymptomatic. States cough is improving. Denies chest pain, SOB, wheezing, abd pain,nausea, vomiting. Offers no other complaints. OBJECTIVE: Vital Signs-as noted below Physical Exam: General Appearance:Thin, fragile, chronic ill appearing, no apparent distress Head: normocephalic, Atraumatic Eyes: normal inspection, EOMI, PERRL Neck: supple, Trachea midline Respiratory/Chest: Decreased breath sounds, CTA Cardiovascular: S1, S2, + Tachycardia, No murmur Abdomen/GI:Soft, Non tender, Bowel sounds present Extremities/Musculoskelatal:normal inspection, no edema Neurologic/Psych:AAOX3, grossly no focal neurological deficits Skin: normal color, warm Lab data as noted below. ASSESSMENT & PLAN: Acute on chronic hypoxemic respiratory failure: Secondary to COPD exacerbation and Multifocal pneumonia Possible aspiration given h/o alcoholic abuse Admit being non compliance with meds/Inhalers Not on oxygen at baseline CTA: No PE ECHO:wnl Continue duonebs, antibiotics, Prednisone Currently saturating well on room air Appreciate Pulmonology input Severe sepsis: Secondary to Multifocal pneumonia/Possible Aspiration Lactic acidosis: Likely secondary to above and liver disease S/P IV fluids Continue Zosyn. S/P IV Vancomycin for 3 days Blood/Sputum cultures: No growth to date Stool for c.diff: Negative Procalcitonin:WNL Leukocytosis resolved: on Prednisone, Afebrile Torsades: Monitor Electrolytes ECHO:EF: 60-65% Appreciate Cardiology help Continue magnesium replacement Hypertension: Elevated likely secondary to alcohol withdrawal Continue Lisinopril increased to 20mg daily Vasotec PRN Monitor Hypokalemia/Hypomagnesemia: Likely secondary to diarrhea monitor electrolytes Malnutrition: BMI:18.6 Nutrition consult Tobacco abuse: Language Assistant Alcohol Abuse disorder: Alcohol level:91 Continue Gabapentin per protocol Continue thiamine, folic acid Watch for withdrawal Counselled to quit drinking Hypertensive and tachycardic this morning likely from alcohol withdrawal PVD as per records Continue Aspirin DVT Px: Lovenox subQ. Code Status: Full Code Discussed with patient on 06/23/16 DISPOSITION: Needs rehab placement Plan to discharge in Next 48 hours if stable PROCEDURES: CTA: 1. Study is negative for pulmonary embolus. 2. Emphysematous change with moderate peribronchial thickening. 3. Multifocal small infiltrative changes of the right lower lobe as well as right midlung region 4. Although statistically most likely consistent with an inflammatory process, short-term CT follow-up is recommended to exclude a persistent groundglass nodule. ECHO: * The left ventricle is normal in size. * There is borderline concentric left ventricular hypertrophy. * Left ventricular systolic function is normal. * No regional wall motion abnormalities noted. * Ejection Fraction = 60-65%. * Aortic valve sclerosis mild, without significant aortic valvular stenosis. * There is no pericardial effusion. Vital Signs: Date Time Temp Pulse Resp B/P Pulse Ox O2 Delivery O2 Flow Rate FiO2 06/26/16 08:08 36.9 109 16 169/96 90 Room Air 06/26/16 07:08 84 16 99 Room Air 06/26/16 00:06 36.8 111 20 154/94 96 Room Air 06/26/16 00:00 Room Air 06/25/16 19:25 88 16 95 Room Air 06/25/16 16:00 Room Air 06/25/16 15:20 36.8 88 18 148/88 98 Room Air 06/25/16 14:26 92 16 96 Room Air 06/25/16 11:32 36.7 84 20 152/92 97 Room Air Lab Results: Results Past 24 Hours Test 06/26/16 07:40 Range/Units White Blood Count 7.59 4.8-10.8 K/uL Red Blood Count 3.68 4.7-6.1 M/uL Hemoglobin 13.5 14.0-18.0 g/dL Hematocrit 39.6 42-52 % Mean Corpuscular Volume 107.6 80-100 fL Mean Corpuscular Hemoglobin 36.7 25-34 pg Mean Corpuscular Hemoglobin Concent 34.1 32-36 g/dl Platelet Count 139 130-400 K/uL Mean Platelet Volume 11.5 7.4-10.4 fL Neutrophils (%) (Auto) 72.3 % Lymphocytes (%) (Auto) 12.0 % Monocytes (%) (Auto) 15.0 % Eosinophils (%) (Auto) 0.4 % Basophils (%) (Auto) 0.0 % Neutrophils # (Auto) 5.49 1.4-6.5 K/uL Lymphocytes # (Auto) 0.91 1.2-3.4 K/uL Monocytes # (Auto) 1.14 0.11-0.59 K/uL Eosinophils # (Auto) 0.03 0-0.5 K/uL Basophils # (Auto) 0.00 0-0.2 K/uL RDW Standard Deviation 59.0 36.4-46.3 fL RDW Coefficient of Variation 14.9 11.5-14.5 % Immature Granulocyte % (Auto) 0.3 % Immature Granulocyte # (Auto) 0.02 0.00-0.02 K/uL Sodium Level 136 136-145 mmol/L Potassium Level 4.1 3.5-5.1 mmol/L Chloride Level 100 98-107 mmol/L Carbon Dioxide Level 29 21-32 mmol/L Anion Gap 7.0 3-11 mmol/L Blood Urea Nitrogen 7 7-18 mg/dl Creatinine 0.63 0.60-1.40 mg/dl Est Creatinine Clear Calc Drug Dose 102.4 ml/min Estimated GFR () 127.7 Estimated GFR (Non- 110.2 BUN/Creatinine Ratio 11.8 10-20 Random Glucose 76 70-99 mg/dl Calcium Level 9.0 8.5-10.1 mg/dl Magnesium Level 1.8 1.8-2.4 mg/dl
--- NOTE | 2016-06-26 11:14 | Cardiology Follow-Up ---
Subjective General Date of Service: June 26, 2016. Chief Complaint: torsades Pt evaluation today including: conversation w/ patient, physical exam, chart review, lab review, review of studies, review of inpatient medication list History of Present Illness Patient feeling well this AM. Denies chest pain or SOB. Cough improved. Denies sense of palpitations or tachypalpitations. Ongoing tremors noted. No dizziness, syncope or near syncope. Allergies Coded Allergies: No Known Allergies (Unverified , 06/22/16) Social History Smoking Status: Former Smoker Hx Alcohol Use - Type And Amou: Yes Hx Substance Use - Type And Am: No Problem List Medical Problems: (1) COPD (chronic obstructive pulmonary disease) Status: Chronic (2) Hypoxia Status: Acute (3) Pneumonia Status: Acute (4) Right-sided chest pain Status: Acute Review of Systems Respiratory: No cough, No dyspnea at rest, No hemoptysis, No shortness of breath, No sputum, No wheezing Cardiac: No PND, No chest pain, No edema, No orthopnea, No palpitations Physical Exam Vital Signs Last Vital Signs Documentation Date Time Temp Pulse Resp B/P Pulse Ox O2 Delivery O2 Flow Rate FiO2 06/26/16 08:08 36.9 109 16 169/96 90 Room Air 06/25/16 10:42 1.0 Physical Exam Constitutional: General Apperance: too thin Level of Distress: NAD, acutely ill, chronically ill Psychiatric: Mental Status: active & alert Orientation: to time, to place, to person Head: normocephalic Eyes: Pupils: PERRLA Neck: supple Lungs: Auscultation: no wheezing, no rales/crackles, no rhonchi, decreased breath sounds Cardiovascular: Heart Auscultation: RRR, normal S1, normal S2, no murmurs Abdomen: Bowel Sounds: normal Inspection & Palpation: soft, non-distended Extremities: no edema Neurologic: Gait & Station: pertinent finding (tremors noted) Assessment and Plan Assessment and Plan 1. Admission right sided pneumonia/sepsis 2. Ventricular tachycardia/Torsades in setting of low mag, hypokalemia, prolonged QT 3. Hypertension - borderline 4. Chronic alcohol use 5. Chronic tobacco abuse 6. COPD PLAN: Magnesium level improving. Continue mag ox 400 mg BID Remains hypertensive this AM. Lisinopril increased yesterday to 20 mg daily. Add amlodipine 5 mg daily. Avoid beta blockers for now given torsades and risk of bradyarrhythmias for now. No recurrent arrhythmias noted. Improved QT/QTc on repeat EKG's. Continue antibiotics and treatment for pneumonia. Avoid medications with tendency to prolong QT Treat for alcohol withdrawal. May benefit from ischemic work up as outpatient. However, it is likely the VT/ Torsades was caused by severe electrolyte imbalance and acute illness. Code status was changed to Full Code. Smoking and alcohol cessation strongly encouraged and discussed with the patient. Patient to go to rehab, agree with this plan. Case discussed with Dr. Cruz. Will follow. Cardiology attending physician: Patient seen and examined at the bedside. Feeling better today. Apatite improved. No CP. Offers no complaints. Planning rehab at [facility]. PE: VSS. Gen: NAD, AAOx3. Underweight. Tremulous. Heart: regular, normal S1 and S2. No murmur, rub, or gallop appreciated. Lungs: Clear B/L, No rales or rhonchi. No expiratory wheeze. The abdomen is soft and nontender no rebound or guarding. Extension is warm and dry without clubbing or cyanosis. Trace pedal edema. A/P: Agree with above PAC history, physical exam, assessment, and plan. Add amlodipine 5mg daily. Antibiotics per IM. Continue lisinopril and magnesium oxide supplementation. Kvng Cruz DO, [facility] Laboratory Results Last 24 Hours Test 06/26/16 07:40 White Blood Count 7.59 K/uL Red Blood Count 3.68 M/uL Hemoglobin 13.5 g/dL Hematocrit 39.6 % Mean Corpuscular Volume 107.6 fL Mean Corpuscular Hemoglobin 36.7 pg Mean Corpuscular Hemoglobin Concent 34.1 g/dl Platelet Count 139 K/uL Mean Platelet Volume 11.5 fL Neutrophils (%) (Auto) 72.3 % Lymphocytes (%) (Auto) 12.0 % Monocytes (%) (Auto) 15.0 % Eosinophils (%) (Auto) 0.4 % Basophils (%) (Auto) 0.0 % Neutrophils # (Auto) 5.49 K/uL Lymphocytes # (Auto) 0.91 K/uL Monocytes # (Auto) 1.14 K/uL Eosinophils # (Auto) 0.03 K/uL Basophils # (Auto) 0.00 K/uL RDW Standard Deviation 59.0 fL RDW Coefficient of Variation 14.9 % Immature Granulocyte % (Auto) 0.3 % Immature Granulocyte # (Auto) 0.02 K/uL Sodium Level 136 mmol/L Potassium Level 4.1 mmol/L Chloride Level 100 mmol/L Carbon Dioxide Level 29 mmol/L Anion Gap 7.0 mmol/L Blood Urea Nitrogen 7 mg/dl Creatinine 0.63 mg/dl Est Creatinine Clear Calc Drug Dose 102.4 ml/min Estimated GFR () 127.7 Estimated GFR (Non- 110.2 BUN/Creatinine Ratio 11.8 Random Glucose 76 mg/dl Calcium Level 9.0 mg/dl Magnesium Level 1.8 mg/dl
[2016-06-26] MEDS ORDERED: AMLODIPINE BESYLATE 5 MG TAB PO ONE (12:00)
--- NOTE | 2016-06-26 16:12 | PROGRESS NOTE ---
DATE: 06/26/2016 PROBLEM LIST: Includes: 1. Pneumonia, right middle lobe and right lower lobe. 2. Chronic obstructive pulmonary disease. 3. Weight loss. 4. Tobacco use. SUBJECTIVE: The patient reports that his breathing is much better today. He states that he feels like his breathing is good. He is not really noticing much shortness of breath at this time. He still has some cough and is able to bring up a little bit of mucus. He still has some wheeze from time to time as well. He has no chest pain at this time, no back pain and no rib pain. He has no pleuritic chest pain. He has not had any palpitations. He states his appetite is doing well. He is not having any difficulty choking. He is not having any fever or chills, no sweats. He is not having any difficulty with abdominal pain, no nausea or vomiting, no indigestion or heartburn, no difficulty with his bowels. No difficulty voiding. No swelling in his extremities. OBJECTIVE: GENERAL: The patient is a 55-year-old male, sitting in chair at bedside. He is alert and oriented x3. Mood is good. Affect is good. VITAL SIGNS: Temp 36.9, pulse 109, respirations 16, blood pressure is 169/96, pulse ox ranging from 96-99% on room air. HEENT: Normocephalic, atraumatic. Pupils equal, round and reactive to light and accommodation. Extraocular movements are intact. [place] moist gingival and buccal mucosa. NECK: Supple. No mass. No adenopathy. No bruit. CHEST: Fairly clear. Did have faint expiratory wheeze in the right lower area. This did clear for the most part with coughing. No rale or rhonchi noted. CARDIOVASCULAR: Regular rate and rhythm. No murmurs, gallops or rubs. ABDOMEN: Bowel sounds are present. Abdomen is soft, nontender. No guarding, rigidity or organomegaly. EXTREMITIES: No erythema or edema. NEUROLOGIC: Cranial nerves II through XII are intact. No focal deficit noted. LABORATORY DATA: Shows a white count of 7000, H and H 13.5 and 39.6, platelet count 139,000. BUN 7, creatinine 0.63. No new imaging data. IMPRESSION: This is a 55-year-old male with left-sided pneumonia who is quite improved. He is not having any difficulty. He has responded well to treatment at this time. Per the chart, they are recommending short-term rehabilitation for him for strengthening. At this time, he is to continue his medications as they are. Upon discharge, he can be transitioned from Zosyn to most likely Augmentin. Currently, he is on prednisone for it. He can continue on that and taper by 5 mg every 2-3 days, was recommended he continue on nicotine patch. He is good with doing this. It was recommended that the patient follow up with pulmonary as an outpatient. He is agreeable to this. MONALISA
[2016-06-26] MEDS ORDERED: METOPROLOL TARTRATE 25 MG TAB PO SCH (21:00)
[2016-06-27 01:37] VITALS: PULSE 118; O2SAT 97
[2016-06-27] MEDS: LEVALBUTEROL 1.25MG/0.5ML NEB INH SCH (01:37)
[2016-06-27] MEDS: IPRATROPIUM BROMIDE NEB SOLN 0.02% 2.5 ML VIAL INH SCH (01:37)
[2016-06-27] MEDS: PIPERACILL/TAZOBAC IV 3.375 GM in DEXTROSE 5% 100ML IV SCH ×2 (06:09→13:25)
[2016-06-27 06:58] VITALS: PULSE 77; O2SAT 98
[2016-06-27] MEDS: IPRATROPIUM BROMIDE HFA INHALER INH SCH ×2 (06:58→13:25)
[2016-06-27] MEDS: LEValbuterol HFA 15GM INHALER INH SCH ×2 (06:58→13:25)
[2016-06-27 07:19] VITALS: BP 174/91; PULSE 80; TEMP 36.5; O2SAT 94
[2016-06-27 07:53] LABS: CALCIUM 9.1 mg/dl (8.5-10.1); CREATININE 0.68 mg/dl (0.60-1.40); MAGNESIUM 1.8 mg/dl (1.8-2.4); POTASSIUM 4.3 mmol/L (3.5-5.1)
[2016-06-27] MEDS: BOOST VANILLA PO SCH ×2 (08:04)
[2016-06-27] MEDS: MAGNESIUM OXIDE 400 MG TAB PO SCH (08:05)
[2016-06-27] MEDS: ASPIRIN 81 MG ECTAB PO SCH (08:06)
[2016-06-27] MEDS: MULTIVITAMIN TAB PO SCH (08:07)
[2016-06-27] MEDS: THIAMINE HCL 100 MG TAB PO SCH (08:07)
[2016-06-27] MEDS: LISINOPRIL 10 MG TAB PO SCH (08:08)
[2016-06-27] MEDS: NICOTINE 21 MG/24 HR TDSY TD SCH (08:09)
[2016-06-27] MEDS: ENOXAPARIN 30 MG/0.3 ML SYR SC SCH (08:10)
[2016-06-27] MEDS ORDERED: AMLODIPINE BESYLATE 5 MG TAB PO SCH (09:00)
--- NOTE | 2016-06-27 13:42 | Progress Note ---
Internal Med Progress Note Date of Service: June 27, 2016. Provider Documentation: SUBJECTIVE: Patient is seen and examined at bedside. Doing well. States he feels he is back to his baseline and would like to be discharged home. Offers no complaints. Denies chest pain, SOB, wheezing, abd pain,nausea, vomiting. OBJECTIVE: Vital Signs-as noted below Physical Exam: General Appearance:Thin, fragile, chronic ill appearing, no apparent distress Head: normocephalic, Atraumatic Eyes: normal inspection, EOMI, PERRL Neck: supple, Trachea midline Respiratory/Chest: Normal breath sounds, CTA Cardiovascular: S1, S2, + Tachycardia, No murmur Abdomen/GI:Soft, Non tender, Bowel sounds present Extremities/Musculoskelatal:normal inspection, no edema Neurologic/Psych:AAOX3, grossly no focal neurological deficits Skin: normal color, warm Lab data as noted below. ASSESSMENT & PLAN: Acute on chronic hypoxemic respiratory failure: Secondary to COPD exacerbation and Multifocal pneumonia Possible aspiration given h/o alcoholic abuse Admit being non compliance with meds/Inhalers Not on oxygen at baseline CTA: No PE ECHO:wnl Continue duonebs, antibiotics, Prednisone Currently saturating well on room air Appreciate Pulmonology input Plan to discharge on prednisone taper Severe sepsis: Secondary to Multifocal pneumonia/Possible Aspiration Lactic acidosis: Likely secondary to above and liver disease S/P IV fluids Continue Zosyn to complete the course S/P IV Vancomycin for 3 days Blood/Sputum cultures: No growth to date Stool for c.diff: Negative Procalcitonin:WNL Leukocytosis resolved: on Prednisone, Afebrile Plan to DC on PO levaquin for 3 more days Torsades: Monitor Electrolytes ECHO:EF: 60-65% Appreciate Cardiology help Continue magnesium replacement Hypertension: Elevated likely secondary to alcohol withdrawal Continue Lisinopril increased to 20mg daily Vasotec PRN Monitor Hypokalemia/Hypomagnesemia: Likely secondary to diarrhea Diarrhea resolved monitor electrolytes Malnutrition: BMI:18.6 Nutrition consult 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 Code Status: Full Code Discussed with patient on 06/23/16 DISPOSITION: Patient prefers to get discharged home as he is back to his baseline and doesn' t think he needs Rehab Follow up with on at 2:45pm Complete the antibiotic and prednisone course as prescribed Quit smoking and alcohol use as advised Use inhalers regularly PROCEDURES: CTA: 1. Study is negative for pulmonary embolus. 2. Emphysematous change with moderate peribronchial thickening. 3. Multifocal small infiltrative changes of the right lower lobe as well as right midlung region 4. Although statistically most likely consistent with an inflammatory process, short-term CT follow-up is recommended to exclude a persistent groundglass nodule. ECHO: * The left ventricle is normal in size. * There is borderline concentric left ventricular hypertrophy. * Left ventricular systolic function is normal. * No regional wall motion abnormalities noted. * Ejection Fraction = 60-65%. * Aortic valve sclerosis mild, without significant aortic valvular stenosis. * There is no pericardial effusion. Vital Signs: Date Time Temp Pulse Resp B/P Pulse Ox O2 Delivery O2 Flow Rate FiO2 06/27/16 14:43 36.7 85 20 97 Room Air 06/27/16 14:36 36.7 85 20 166/92 97 Room Air 156/92 06/27/16 13:58 Room Air 06/27/16 08:00 Room Air 06/27/16 07:19 36.5 80 18 174/91 94 Room Air 06/27/16 06:58 77 16 98 Room Air 06/27/16 01:37 118 16 97 Room Air 06/27/16 00:00 Room Air 06/26/16 23:09 36.8 99 18 154/95 96 Room Air 06/26/16 20:41 83 16 96 Room Air 06/26/16 20:00 Room Air 06/26/16 16:44 Room Air 06/26/16 15:38 36.7 110 18 141/96 96 Room Air Lab Results: Results Past 24 Hours Test 06/27/16 06:55 Range/Units Sodium Level 139 136-145 mmol/L Potassium Level 4.3 3.5-5.1 mmol/L Chloride Level 101 98-107 mmol/L Carbon Dioxide Level 32 21-32 mmol/L Anion Gap 6.0 3-11 mmol/L Blood Urea Nitrogen 10 7-18 mg/dl Creatinine 0.68 0.60-1.40 mg/dl Est Creatinine Clear Calc Drug Dose 94.9 ml/min Estimated GFR () 123.7 Estimated GFR (Non- 106.8 BUN/Creatinine Ratio 14.0 10-20 Random Glucose 68 70-99 mg/dl Calcium Level 9.1 8.5-10.1 mg/dl Magnesium Level 1.8 1.8-2.4 mg/dl
[2016-06-27 14:36] VITALS: BP_SYST 156; BP_SYST 166; BP_DIAS 92; PULSE 85; TEMP 36.7; O2SAT 97
[2016-06-27 14:43] VITALS: BP 156/92; PULSE 85; TEMP 36.7; O2SAT 97
[2016-06-27] MEDS ORDERED: FLV1 PO (15:05)
[2016-06-27] MEDS ORDERED: THM100 PO (15:05)
[2016-06-27] MEDS ORDERED: Nicotine TD (15:05)
[2016-06-27] MEDS ORDERED: PRED10TA PO (15:06)
[2016-06-27] MEDS ORDERED: LEVO-18 PO (15:06)
[2016-06-27] MEDS ORDERED: SYMIN/8045 INH (15:06)
[2016-06-27] MEDS ORDERED: PRVHFAIN INH (15:06)
[2016-06-27] MEDS ORDERED: NRV5 PO (15:10)
[2016-06-27] MEDS ORDERED: MGNO400 PO (15:11)
--- NOTE | 2016-06-27 15:12 | Discharge Summary ---
Discharge Summary Date of Service June 27, 2016. Discharge Summary Admission Date: June 22, 2016 at 23:20 Discharge Date: June 27, 2016 Discharge Disposition: Home Principal Diagnosis: Acute on chronic hypoxemic respiratory failure, Pneumonia, Sepsis, Alcohol Intoxication Procedures: CT Chest: 1. Study is negative for pulmonary embolus. 2. Emphysematous change with moderate peribronchial thickening. 3. Multifocal small infiltrative changes of the right lower lobe as well as right midlung region 4. Although statistically most likely consistent with an inflammatory process, short-term CT follow-up is recommended to exclude a persistent groundglass nodule. Consultations: Pulmonology, Cardiology Pending Studies/Follow-Up: Follow up with on at 2:45pm Complete the antibiotic and prednisone course as prescribed Quit smoking and alcohol use as advised Use inhalers regularly as advised Medication Reconciliation New Medications: Albuterol (Ventolin Hfa) 60 Puffs/5400 Mcg Aers 90 MCG INH Q4H for SOB/Wheezing for 30 Days, #1 INHALER 2 Refills Budesonide/Formoterol Fumarate (Symbicort 80/4.5 Inhaler) Aero 2 PUFFS INH BID for 30 Days, #1 INHALER Levofloxacin (Levaquin) 750 Mg Tab 1 TAB PO DAILY for 3 Days, #3 TAB Prednisone Tab (Prednisone) 10 Mg Tab 10 MG PO UD PRN for daily for 6 Days, #9 TAB Start taking 20mg daily for 3 days and then 10mg daily for 3 days and stop Amlodipine Besylate (Amlodipine Besylate) 5 Mg Tab 5 MG PO QAM for 30 Days, #30 TAB Folic Acid (Folic Acid) 1 Mg Tab 1 MG PO QAM for 30 Days, #30 TAB Magnesium Oxide (Magnesium-Oxide) 400 Mg Tab 400 MG PO BID for 10 Days, #20 TAB Thiamine HCl (Vitamin B-1) 100 Mg Tab 100 MG PO QAM for 30 Days, #30 TAB [Nicotine] () 21mg TDSY 1 PATCH TD QAM for 30 Days, #30 1 Refill Continued Medications: Aspirin (Aspirin Ec) 81 Mg Tab 81 MG PO DAILY Cyanocobalamin (Vitamin B-12) 1,000 Mcg Tab 1000 MCG PO DAILY, TAB Lisinopril (Zestril) 10 Mg Tab 10 MG PO DAILY, TAB Admission Information HPI (per Admitting provider): CHIEF COMPLAINT: Shortness of breath. HISTORY OF PRESENT ILLNESS: Medical history is significant for COPD, ongoing tobacco abuse, hypertension and daily alcohol intake. Hx PVD as per records. Patient was at work today when he noted pleuritic right-sided chest pain, increasing shortness of breath; usual cough symptoms productive of yellow sputum. He denies aspiration. No fever/chills. loose stools, no abd pain. At the Emergency Room, a CTA showed no PE, COPD, multiple small infiltrative changes right lower lobe as well as the right mid lung. At some point, O2 sats dropped to 87 on room air. Patient received Solu-Medrol, Zosyn and DuoNebs in the Emergency Room. Physical Exam (per Admitting): PHYSICAL EXAMINATION: VITAL SIGNS: Blood pressure 136/98, pulse rate 98, RR 20, temperature 36.6 and sats 95 later 87 on room air 92 on 4 liters GENERAL: Slightly anxious, alcoholic fetor, looks older for stated age., in minimal respiratory distress. SKIN: Normal color. HEENT: [place] palpebral conjunctivae. Dry mucosa. NECK: No JVD. Supple. CHEST: Expiratory wheezes, rhonchi. HEART: Regular rate and rhythm. ABDOMEN: Soft. EXTREMITIES: No edema. no tenderness NEUROLOGIC: No gross focality. Hospital Course Acute on chronic hypoxemic respiratory failure: Secondary to COPD exacerbation and Multifocal pneumonia Possible aspiration given h/o alcoholic abuse Admit being non compliance with meds/Inhalers Not on oxygen at baseline CTA: No PE ECHO:wnl Continue duonebs, antibiotics, Prednisone Currently saturating well on room air Appreciate Pulmonology input Plan to discharge on prednisone taper Severe sepsis: Secondary to Multifocal pneumonia/Possible Aspiration Lactic acidosis: Likely secondary to above and liver disease S/P IV fluids Continue Zosyn to complete the course S/P IV Vancomycin for 3 days Blood/Sputum cultures: No growth to date Stool for c.diff: Negative Procalcitonin:WNL Leukocytosis resolved: on Prednisone, Afebrile Plan to DC on PO levaquin for 3 more days Torsades: Monitor Electrolytes ECHO:EF: 60-65% Appreciate Cardiology help Continue magnesium replacement Hypertension: Elevated likely secondary to alcohol withdrawal Continue Lisinopril increased to 20mg daily Vasotec PRN Monitor Hypokalemia/Hypomagnesemia: Likely secondary to diarrhea Diarrhea resolved monitor electrolytes Malnutrition: BMI:18.6 Nutrition 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 Code Status: Full Code Discussed with patient on 06/23/16 DISPOSITION: Patient prefers to get discharged home as he is back to his baseline and doesn' t think he needs Rehab Follow up with on at 2:45pm Complete the antibiotic and prednisone course as prescribed Quit smoking and alcohol use as advised Use inhalers regularly PROCEDURES: CTA: 1. Study is negative for pulmonary embolus. 2. Emphysematous change with moderate peribronchial thickening. 3. Multifocal small infiltrative changes of the right lower lobe as well as right midlung region 4. Although statistically most likely consistent with an inflammatory process, short-term CT follow-up is recommended to exclude a persistent groundglass nodule. ECHO: * The left ventricle is normal in size. * There is borderline concentric left ventricular hypertrophy. * Left ventricular systolic function is normal. * No regional wall motion abnormalities noted. * Ejection Fraction = 60-65%. * Aortic valve sclerosis mild, without significant aortic valvular stenosis. * There is no pericardial effusion. Total time spent on discharge = 35 minutes This includes examination of the patient, discharge planning, medication reconciliation, and communication with other providers. Discharge Instructions Discharge Instructions Date of Service June 27, 2016. Admission Reason for Admission: Respiratory Failure, Acute Discharge Discharge Diagnosis / Problem: Acute on chronic hypoxemic respiratory failure, Pneumonia, Sepsis Discharge Goals Goal(s): Decrease discomfort, Improve function Activity Recommendations Activity Limitations: resume your previous activity Exercise/Sports Limitations: as tolerated . Instructions / Follow-Up Instructions / Follow-Up Follow up with on at 2:45pm Complete the antibiotic and prednisone course as prescribed Quit smoking and alcohol use as advised Use inhalers regularly as advised Current Hospital Diet Patient's current hospital diet: Low Lactose Diet, Low Sodium Diet (2gm Na) Discharge Diet Recommended Diet: AHA Diet (Heart Healthy) Pending Studies Studies pending at discharge: no Laboratory Results Hemoglobin A1c Test 06/23/16 04:00 Range/Units Estimated Average Glucose 108 mg/dl Hemoglobin A1c 5.4 4.5-5.6 % Medical Emergencies . Who to Call and When: Medical Emergencies: If at any time you feel your situation is an emergency, please call 911 immediately. . Non-Emergent Contact Non-Emergency issues call your: Primary Care Provider Call Non-Emergent contact if: you have a fever, your pain is not controlled, your pain is worsening, your pain is unusual for you, you have any medication questions . . "Provider Documentation" section prepared by Cooper Romero. . VTE Core Measure Inpt VTE Proph given/why not?: Enoxaparin (Lovenox)SQ
[2016-07-19] MEDS ORDERED: SACC250C PEG (09:09)
[2016-07-19] MEDS ORDERED: VNCS125 PO (09:09)
== END 2016-06-27 15:54 | disposition home or self-care (01) | DRG 871 ==
LOC: ENRESERVTM → ENRESERVDT → EDBD 21:31 → C.EDB 21:33 → C.2T 23:20 → C.MS2W 06-25 11:27
PROVIDERS: ADMIT Internal Medicine; ATTEND Internal Medicine
DX: A41.9 Sepsis, unspecified organism (principal); J69.0 Pneumonitis due to inhalation of food and vomit; R65.20 Severe sepsis without septic shock; J96.21 Acute and chronic respiratory failure with hypoxia; J44.1 Chronic obstructive pulmonary disease with (acute) exacerbation; F10.239 Alcohol dependence with withdrawal, unspecified; E87.2 Acidosis; E46 Unspecified protein-calorie malnutrition; Z68.1 Body mass index [BMI] 19.9 or less, adult; R64 Cachexia; I47.2 Ventricular tachycardia; R19.7 Diarrhea, unspecified; E87.6 Hypokalemia; E83.42 Hypomagnesemia; I10 Essential (primary) hypertension; I73.9 Peripheral vascular disease, unspecified; F17.210 Nicotine dependence, cigarettes, uncomplicated; Z51.81 Encounter for therapeutic drug level monitoring; Z79.899 Other long term (current) drug therapy; Z79.82 Long term (current) use of aspirin; Z91.14 Patient's other noncompliance with medication regimen; Z66 Do not resuscitate

== ENCOUNTER 2016-07-16 14:45 | Inpatient (IN) | payer BC ==
[~2016-07-16] VITALS: Ht 165.1 cm; Wt 48.0 kg
[~2016-07-16 14:45] MED LIST: ASPI81TA28 PO; CYAN10005 PO; FLV1 PO; LISI-461 PO; MGNO400 PO; NRV5 PO; Nicotine TD; PRVHFAIN INH; SYMIN/8045 INH; THM100 PO
--- NOTE | 2016-07-16 15:42 | EMERGENCY ROOM VISIT NOTE ---
History Report prepared by Gerri: Justin Garcia Under the Supervision of: Dr. Terri Villarreal D.O. First contact with patient: 15:25 Chief Complaint: DIARRHEA Stated Complaint: TIREDNESS, WEAK IN LEGS, DIARRHEA History of Present Illness The patient is a 55 year old male who presents to the Emergency Room with complaints of a persistent illness that started yesterday. He says that he had diarrhea almost all day yesterday when he was not sleeping. He notes that the diarrhea has been small and only a few drops each time. Today, the patient states that he has been having intermittent leg weakness and dizziness. He has been very tired as well and wanted to fall asleep at work all day today. The patient states that he slept most of yesterday into today. He says that he took a laxative a couple hours ago, and proceeded to have a larger bowel movement ( diarrhea). The patient says that there is a little bit of bright bed blood in his diarrhea occasionally, but nothing too notable. States no blood in the water or mixed with stool, only a small amount of bright red blood when he wipes. He does get some abdominal cramps before having to have a bowel movement. The patient denies any rashes, vomiting, nausea, or melena. He adds that he used to only have a liquid-only diet until this year. He has no history of stomach problems. The patient denies any recent traveling or recent sick contacts. He takes a blood pressure medication and folic acid. He recently had pneumonia and finished a round of Levofloxacin. Source of History: patient Onset: Yesterday Position: other (global - illness) Timing: other (persistent) Associated Symptoms: + diarrhea (a bit of bright red blood occasionally), + fatigue, + weakness (leg), No nausea, No vomiting, No melena, No rash Note: Associated symptoms: Intermittent dizziness. Some abdominal cramps before having to have a bowel movement. Review of Systems See HPI for pertinent positives & negatives. A total of 10 systems reviewed and were otherwise negative. Past Medical & Surgical Medical Problems: (1) Atherosclerosis of lower extremity with intermittent claudication (2) Colitis (3) COPD (chronic obstructive pulmonary disease) (4) Hypertension (5) Respiratory failure, acute (6) Tobacco use disorder Surgical Problems: (1) History of dental surgery (2) S/P tonsillectomy and adenoidectomy Family History Coronary artery disease MOTHER Diabetes mellitus MOTHER Social History Smoking Status: Current Every Day Smoker Marital Status: single Occupation Status: employed Current/Historical Medications Scheduled Albuterol (Ventolin Hfa), 90 MCG INH Q4H Amlodipine Besylate (Amlodipine Besylate), 5 MG PO QAM Aspirin (Aspirin Ec), 81 MG PO DAILY Budesonide/Formoterol Fumarate (Symbicort 80/4.5 Inhaler), 2 PUFFS INH BID Cyanocobalamin (Vitamin B-12), 1,000 MCG PO DAILY Folic Acid (Folic Acid), 1 MG PO QAM Lisinopril (Zestril), 10 MG PO DAILY Magnesium Oxide (Mag-Ox), 400 MG PO DAILY Thiamine HCl (Vitamin B-1), 100 MG PO QAM Allergies Coded Allergies: No Known Allergies (Unverified , 06/22/16) Physical Exam Vital Signs Date Time Temp Pulse Resp B/P (MAP) Pulse Ox O2 Delivery O2 Flow Rate FiO2 07/16/16 17:54 70 18 143/83 97 Room Air 07/16/16 16:14 88 16 126/72 96 Room Air 07/16/16 15:07 37.2 100 18 127/80 91 Room Air Physical Exam GENERAL: alert, well appearing, well nourished, no distress, non-toxic. Appears older than stated age. EYE EXAM: normal conjunctiva, PERRL and EOM's grossly intact OROPHARYNX: no exudate, no erythema, lips, buccal mucosa, and tongue normal and mucous membranes are mildly dry. NECK: supple, no nuchal rigidity, no adenopathy, non-tender LUNGS: Clear to auscultation. Normal chest wall mechanics HEART: no murmurs, S1 normal and S2 normal ABDOMEN: abdomen soft, non-tender, normo-active bowel sounds, no masses, no rebound or guarding. BACK: Back is symmetrical on inspection and there is no deformity, no midline tenderness, no CVA tenderness. SKIN: no rashes and no bruising UPPER EXTREMITIES: upper extremities are grossly normal. LOWER EXTREMITIES: No pitting edema. NEURO EXAM: Normal sensorium, cranial nerves II-XII grossly intact, normal speech, no gross weakness of arms, no gross weakness of legs. No drift. Finger to nose intact. Gross sensation intact. Medical Decision & Procedures ER Provider Diagnostic Interpretation: X-ray results have been interpreted by the radiologist and reviewed by me. CHEST AND ABDOMEN 2 VIEWS HISTORY: diarrhea COMPARISON: Chest 06/23/2016. FINDINGS: The lungs are clear. The cardiomediastinal silhouette is within normal limits. There is no pneumoperitoneum or pneumatosis. The bowel gas pattern is unremarkable. No evidence for bowel obstruction. No renal or ureteral calculi. A few scattered small fluid levels within the bowel.. IMPRESSION: No acute cardiopulmonary process. No evidence for bowel obstruction. A few scattered small fluid levels within the bowel. This could represent a low-grade gastroenteritis. Electronically signed by: Reinaldo Snyder M.D. 07/16/2016 5:04 PM Dictated Date/Time: 07/16/2016 5:02 PM [~ rep ct add3]] ABDOMEN AND PELVIS CT WITH IV CONTRAST CT DOSE: 228.39 mGy.cm HISTORY: Generalized abdominal pain, diarrhea TECHNIQUE: Multiaxial CT images of the abdomen and pelvis were performed following the use of intravenous contrast. COMPARISON STUDY: None. FINDINGS: The lung bases are clear. No pneumoperitoneum. No pneumatosis. Bilateral L5 spondylolysis. There is a diverticulum at the second portion of the duodenum. A 12 mm hypodense lesion within the center aspect of the liver. The gallbladder, pancreas, spleen, and adrenal glands are unremarkable. No retroperitoneal lymphadenopathy. Slightly heterogenous perfusion of the kidneys with associated cortical thinning. No hydronephrosis. Mild thickening of the bladder wall. This could be due to underdistention. No evidence for bowel obstruction. Mild to moderate thickening of the entire colon with minimal pericolonic fat stranding. This is consistent with a pancolitis. IMPRESSION: 1. Pancolitis. This is likely due to an infectious or inflammatory process. 2. No evidence for bowel obstruction. 3. Heterogeneous perfusion to the kidneys. There is also mild bladder wall thickening. This raises the possibility of a bilateral pyelonephritis/cystitis. Correlation with urinalysis is suggested. Electronically signed by: Reinaldo Snyder M.D. 07/16/2016 6:43 PM Dictated Date/Time: 07/16/2016 6:37 PM Laboratory Results 07/16/16 16:10 Red Blood Count 4.04, Mean Corpuscular Volume 104.2, Mean Corpuscular Hemoglobin 35.1, Mean Corpuscular Hemoglobin Concent 33.7, Mean Platelet Volume 11.0, Neutrophils (%) (Auto) 87.1, Lymphocytes (%) (Auto) 8.5, Monocytes (%) ( Auto) 4.0, Eosinophils (%) (Auto) 0.1, Basophils (%) (Auto) 0.1, Neutrophils # ( Auto) 21.09, Lymphocytes # (Auto) 2.05, Monocytes # (Auto) 0.96, Eosinophils # ( Auto) 0.02, Basophils # (Auto) 0.02 07/16/16 16:10 Test 07/16/16 16:10 07/16/16 18:09 White Blood Count 24.20 K/uL (4.8-10.8) Red Blood Count 4.04 M/uL (4.7-6.1) Hemoglobin 14.2 g/dL (14.0-18.0) Hematocrit 42.1 % (42-52) Mean Corpuscular Volume 104.2 fL (80-100) Mean Corpuscular Hemoglobin 35.1 pg (25-34) Mean Corpuscular Hemoglobin Concent 33.7 g/dl (32-36) Platelet Count 388 K/uL (130-400) Mean Platelet Volume 11.0 fL (7.4-10.4) Neutrophils (%) (Auto) 87.1 % Lymphocytes (%) (Auto) 8.5 % Monocytes (%) (Auto) 4.0 % Eosinophils (%) (Auto) 0.1 % Basophils (%) (Auto) 0.1 % Neutrophils # (Auto) 21.09 K/uL (1.4-6.5) Lymphocytes # (Auto) 2.05 K/uL (1.2-3.4) Monocytes # (Auto) 0.96 K/uL (0.11-0.59) Eosinophils # (Auto) 0.02 K/uL (0-0.5) Basophils # (Auto) 0.02 K/uL (0-0.2) RDW Standard Deviation 50.5 fL (36.4-46.3) RDW Coefficient of Variation 13.3 % (11.5-14.5) Immature Granulocyte % (Auto) 0.2 % Immature Granulocyte # (Auto) 0.06 K/uL (0.00-0.02) Anion Gap 11.0 mmol/L (3-11) Est Creatinine Clear Calc Drug Dose 43.1 ml/min Estimated GFR () 70.7 Estimated GFR (Non- 61.0 BUN/Creatinine Ratio 11.3 (10-20) Lactic Acid Level 1.0 mmol/L (0.4-2.0) Calcium Level 9.4 mg/dl (8.5-10.1) Magnesium Level 1.8 mg/dl (1.8-2.4) Total Bilirubin 0.6 mg/dl (0.2-1) Aspartate Amino Transf (AST/SGOT) 19 U/L (15-37) Alanine Aminotransferase (ALT/SGPT) 20 U/L (12-78) Alkaline Phosphatase 82 U/L (45-117) Total Protein 7.4 gm/dl (6.4-8.2) Albumin 3.6 gm/dl (3.4-5.0) Globulin 3.8 gm/dl (2.5-4.0) Albumin/Globulin Ratio 0.9 (0.9-2) Lipase 101 U/L (73-393) Urine Color YELLOW Urine Appearance CLEAR (CLEAR) Urine pH 5.0 (4.5-7.5) Urine Specific [place] 1.010 (1.000-1.030) Urine Protein NEG (NEG) Urine Glucose (UA) NEG (NEG) Urine Ketones 1+ (NEG) Urine Occult Blood NEG (NEG) Urine Nitrite NEG (NEG) Urine Bilirubin NEG (NEG) Urine Urobilinogen NEG (NEG) Urine Leukocyte Esterase TRACE (NEG) Urine WBC (Auto) 1-5 /hpf (0-5) Urine RBC (Auto) 0-4 /hpf (0-4) Urine Hyaline Casts (Auto) 1-5 /lpf (0-5) Urine Epithelial Cells (Auto) 5-10 /lpf (0-5) Urine Bacteria (Auto) NEG (NEG) Laboratory results per my review. Medications Administered Medications (Trade) Dose Ordered Sig/Lee Route Start Time Stop Time Status Last Admin Dose Admin Sodium Chloride 1,000 ml @ 999 mls/hr Q1H1M STAT IV 07/16/16 15:43 07/16/16 16:43 DC 07/16/16 16:14 999 MLS/HR Sodium Chloride 1,000 ml @ 999 mls/hr Q1H1M STAT IV 07/16/16 17:42 07/16/16 18:42 DC 07/16/16 18:09 999 MLS/HR Metronidazole (Flagyl / Nss) 500 mg NOW STAT IV 07/16/16 19:18 07/16/16 19:28 DC 07/16/16 20:43 500 MG Ciprofloxacin/ Dextrose (Cipro / D5W) 400 mg NOW STAT IV 07/16/16 19:18 07/16/16 19:28 DC 07/16/16 20:44 400 MG ECG Indication: weakness, other (diarrhea) Rate (beats per minute): 76 Rhythm: sinus rhythm Findings: no acute ischemic change, left axis deviation, no ectopy, other ( normal axis, normal intervals) ED Course 1532: The patient was evaluated in room C4. A complete history and physical exam was performed. 1542: Ordered NSS 1000 ml @ 999 mls/hr IV. 1905: Updated patient all results, he is resting comfortably at this time. Medical Decision Differential diagnosis includes but is not limited to: viral syndrome, C. difficile, other infectious diarrhea, bowel obstruction, mesenteric ischemia, food borne illness, medication reaction. Medication Reconciliation: I attest that I have personally reviewed the patient' s current medication list. Blood pressure screening: Patient was found to have normal blood pressure on screening and does not require follow-up. Pt improved here with IVF, but given significant leukocytosis and pancolitis, admitted for continued monitoring and treatment. Cultures ordered. No hx of IBD. Takes asa, no other anticoagulation. VS stable, doubt bacteremia/sepsis. No other evidence of acute GI pathology. UA pending at time of admission. No symptoms. No renal dysfunction. Pt covered with antibiotics. Consults Time Called: 1905 Consulting Physician: Dr. Perez Returned Call: [address] Perez for admission. Agrees with antibiotic coverage. Impression Primary Impression: Pancolitis Additional Impressions: Diarrhea Tobacco abuse Dehydration Generalized weakness Scribe Attestation The scribe's documentation has been prepared under my direction and personally reviewed by me in its entirety. I confirm that the note above accurately reflects all work, treatment, procedures, and medical decision making performed by me. Departure Information Referrals Macario Rajput M.D. (PCP) Patient Instructions My [facility] Problem Qualifiers Additional Impressions: Diarrhea Diarrhea type: unspecified type Qualified Codes: R19.7 - Diarrhea, unspecified
[2016-07-16] MEDS ORDERED: SODIUM CHLORIDE 0.9% 1000ML 1,000 ML IV STA ×2 (15:43→17:42)
[2016-07-16] MEDS ORDERED: MAGN400T6 PO (16:02)
--- NOTE | 2016-07-16 17:05 | DIAGNOSTIC IMAGING REPORT ---
CHEST AND ABDOMEN 2 VIEWS HISTORY: diarrhea COMPARISON: Chest 06/23/2016. FINDINGS: The lungs are clear. The cardiomediastinal silhouette is within normal limits. There is no pneumoperitoneum or pneumatosis. The bowel gas pattern is unremarkable. No evidence for bowel obstruction. No renal or ureteral calculi. A few scattered small fluid levels within the bowel.. IMPRESSION: No acute cardiopulmonary process. No evidence for bowel obstruction. A few scattered small fluid levels within the bowel. This could represent a low-grade gastroenteritis. Electronically signed by: Reinaldo Snyder M.D. 07/16/2016 5:04 PM Dictated Date/Time: 07/16/2016 5:02 PM
[2016-07-16 17:38] LABS: HEMATOCRIT 42.1 % (42-52); MEAN CELL VOLUME 104.2 fL (80-100); MEAN CORPUSCULAR HEMOGLOBIN 35.1 pg (25-34); MEAN CORPUSCULAR HGB CONC 33.7 g/dl (32-36); PLATELET COUNT 388 K/uL (130-400); RED BLOOD COUNT 4.04 M/uL (4.7-6.1)
[2016-07-16 17:49] LABS: BUN/CREATININE RATIO 11.3 (10-20); CALCIUM 9.4 mg/dl (8.5-10.1); CREATININE 1.3 mg/dl (0.60-1.40)
[2016-07-16 17:52] LABS: ALB/GLOB RATIO 0.9 (0.9-2)
[2016-07-16 18:00] LABS: BASO % 0.1 %; BASO ABS # 0.02 K/uL (0-0.2); COMPLETE YES; EOS % 0.1 %; IG% 0.2 %; LYMPH % 8.5 %; LYMPH ABS # 2.05 K/uL (1.2-3.4); NEUT % 87.1 %
[2016-07-16] MEDS ORDERED: OPTIRAY 320 IV PRN (18:15)
[2016-07-16 18:29] LABS: URINE APPEARANCE CLEAR (CLEAR); URINE BILIRUBIN NEG (NEG); URINE COLOR YELLOW; URINE NITRITE NEG (NEG); UROBILINOGEN NEG (NEG); ZZUR CULT IF INDIC CLEAN CATCH NO
[2016-07-16 18:36] LABS: MANUAL MICROSCOPIC REQUIRED? NO; REVIEW REQ? NO
--- NOTE | 2016-07-16 18:45 | DIAGNOSTIC IMAGING REPORT ---
ABDOMEN AND PELVIS CT WITH IV CONTRAST CT DOSE: 228.39 mGy.cm HISTORY: Generalized abdominal pain, diarrhea TECHNIQUE: Multiaxial CT images of the abdomen and pelvis were performed following the use of intravenous contrast. COMPARISON STUDY: None. FINDINGS: The lung bases are clear. No pneumoperitoneum. No pneumatosis. Bilateral L5 spondylolysis. There is a diverticulum at the second portion of the duodenum. A 12 mm hypodense lesion within the center aspect of the liver. The gallbladder, pancreas, spleen, and adrenal glands are unremarkable. No retroperitoneal lymphadenopathy. Slightly heterogenous perfusion of the kidneys with associated cortical thinning. No hydronephrosis. Mild thickening of the bladder wall. This could be due to underdistention. No evidence for bowel obstruction. Mild to moderate thickening of the entire colon with minimal pericolonic fat stranding. This is consistent with a pancolitis. IMPRESSION: 1. Pancolitis. This is likely due to an infectious or inflammatory process. 2. No evidence for bowel obstruction. 3. Heterogeneous perfusion to the kidneys. There is also mild bladder wall thickening. This raises the possibility of a bilateral pyelonephritis/cystitis. Correlation with urinalysis is suggested. Electronically signed by: Reinaldo Snyder M.D. 07/16/2016 6:43 PM Dictated Date/Time: 07/16/2016 6:37 PM
[2016-07-16] MEDS ORDERED: CIPROFLOXACIN 400MG / 200ML D5W IV STA (19:18)
[2016-07-16] MEDS ORDERED: METRONIDAZOLE 500MG / 100ML NSS IV STA (19:18)
[2016-07-16] MEDS ORDERED: KETOROLAC TROMETHAMINE 15 MG/ML VIAL IV. PRN (20:15)
[2016-07-16] MEDS ORDERED: ACETAMINOPHEN 325 MG TAB PO PRN (20:15)
[2016-07-16] MEDS ORDERED: IBUPROFEN 200 MG TAB PO PRN (20:15)
[2016-07-16] MEDS ORDERED: PROMETHAZINE HCL INJ 12.5 MG in SODIUM CHLORIDE 0.9% 50ML 50 ML IV PRN (20:15)
[2016-07-16] MEDS ORDERED: TRAMADOL HCL 50 MG TAB PO PRN (20:15)
--- NOTE | 2016-07-16 21:09 | HISTORY & PHYSICAL EXAMINATION ---
DATE OF ADMISSION: 07/16/2016 PRIMARY CARE PHYSICIAN: Dr. Rajput. HISTORY OF PRESENT ILLNESS: History obtained from patient and records. Medical history significant for COPD, ongoing tobacco abuse; hypertension, PVD, history of torsades de pointes. past ETOH abuse. Recent confinement a few weeks ago for for COPD exacerbation, multilobar pneumonia. Patient also developed torsades de pointes during confinement attributed to hypomagnesemia. Seen by Cardiology. TTE EF of about 60-65%. Outpatient stress test recommended. The last 2 days, the patient noted diarrhea dripping, nonbloody. No nausea, some abdominal discomfort. No chest pain, no shortness of breath, no fever, no chills. No dysuria but admits to urinary hesitancy symptoms. At the Emergency Room, CT scan showed pancolitis. Patient received Cipro and Flagyl. MEDICAL HISTORY: As above. No previous endoscopies. SURGERIES: He has had tonsillectomy, adenoidectomy, dental surgery. HOME MEDICATIONS: Include aspirin, albuterol, mag oxide, amlodipine, budesonide ALLERGIES: No known drug allergies. FAMILY HISTORY: Hypertension. No IBD. PERSONAL AND SOCIAL HISTORY: Averages one-fourth pack in a day. 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 REVIEW OF SYSTEMS: As per HPI, all other ROS negative. OBJECTIVE: VITAL SIGNS: Blood pressure was noted to be 127/80, pulse 100, RR 18, temperature 37, sats 98% on room air. GENERAL: Noted to be hyposthenic. No respiratory distress. looks older for stated age SKIN: Normal color. HEENT: [place] palpable conjunctivae. Dry mucosa. NECK: No JVD. Supple. CHEST: Clear to auscultation. HEART: Regular rate and rhythm. ABDOMEN: Some distention, nontender. EXTREMITIES: No edema. no tenderness NEUROLOGIC: No gross focality. LABS: Hemoglobin was noted to be 14.2, hematocrit 40.1, white blood cell count 24.2, platelets 388. Sodium 131, potassium 4, chloride 90, CO2 27, BUN 15, creatinine 1.3, glucose was noted to be 72. UA ketones trace WBC est, epit cells CT abdomen and pelvis, pancolitis, no bowel obstruction, mild bladder wall thickening. ASSESSMENT: 1. Pancolitis ro cdif Patient is not septic. 2. UTI/cystitis on CT px admits to urinary retention ("unable to go") since onset of diarrhea sx 3. Hyponatremia 2 to illness, clinical dehydration 4. Hypertension, stable. 5. History torsades 2 hypomagnesemia 6. Past alcohol abuse 7. ongoing tobacco abuse. 8. Chronic pulmonary obstructive disease, pulmo status at baseline. 9. Malnutrition (Low BMI) PLAN: GMF Stool C. diff. Flagyl for now for presumptive cdif given leukocytosis. Vanco p.o. if C. dif test abnormal owing to leukocytosis greater than 20. ( severe cdif) dc Flagyl if stool cdif negative ff urine CS, IV Ceftriaxone for now ff sodium, NSS Nicotine patch. Nutrition consult. RE low BMI DVT prophylaxis, Lovenox subQ. Full code. MTDD
[2016-07-16 21:45] VITALS: BP 154/84; PULSE 72; TEMP 37; O2SAT 94; Ht 165.1 cm; Wt 48.0 kg
[2016-07-16] MEDS ORDERED: SODIUM CHLORIDE 0.9% 1000ML 1,000 ML IV ONE (21:45)
[2016-07-16] MEDS ORDERED: MAGNESIUM SULFATE 1GM / D5W 1 GM in PREMIXED IN D5W 100 ML IV STA (21:52)
[2016-07-16] MEDS ORDERED: CEFTRIAXONE SOD INJ 1000 MG in DEXTROSE 5% 50ML IV SCH (22:00)
[2016-07-16] MEDS: BUDESONIDE/FORMOTEROL FUMARATE 80/4.5 60 PUFFS/INHALER INH SCH (22:34)
[2016-07-17] VITALS: BP 133/75; PULSE 73; TEMP 36.9; O2SAT 94
[2016-07-17] MEDS: RASPBERRY SYRUP 5 ML UDP PO SCH ×4 (04:04→21:32)
[2016-07-17] MEDS: VANCOMYCIN HCL 125 MG/2.5ML SOLN PO SCH ×4 (04:04→21:32)
[2016-07-17] MEDS: HEPARIN SOD 5000 UNIT/0.5 ML CARP SQ SCH ×3 (05:30→21:36)
[2016-07-17 06:12] LABS: BASO % 0.2 %; BASO ABS # 0.03 K/uL (0-0.2); COMPLETE YES; EOS % 0.7 %; HEMATOCRIT 38.3 % (42-52); IG% 0.3 %; LYMPH % 6.4 %; LYMPH ABS # 0.97 K/uL (1.2-3.4); MEAN CELL VOLUME 104.9 fL (80-100); MEAN CORPUSCULAR HEMOGLOBIN 35.1 pg (25-34); MEAN CORPUSCULAR HGB CONC 33.4 g/dl (32-36); MEAN PLATELET VOLUME 10.7 fL (7.4-10.4); MONO % 9.9 %; NEUT % 82.5 %; PLATELET COUNT 341 K/uL (130-400); RED BLOOD COUNT 3.65 M/uL (4.7-6.1); WHITE BLOOD COUNT 15.13 K/uL (4.8-10.8)
[2016-07-17 06:50] LABS: BUN/CREATININE RATIO 14.3 (10-20); CREATININE 0.78 mg/dl (0.60-1.40); POTASSIUM 3.8 mmol/L (3.5-5.1)
[2016-07-17 07:39] VITALS: BP 131/74; PULSE 67; TEMP 36.6; O2SAT 99
[2016-07-17] MEDS: NICOTINE 7 MG/24 HR TDSY TD SCH (08:43)
[2016-07-17] MEDS ORDERED: LISINOPRIL 10 MG TAB PO SCH (09:00)
[2016-07-17] MEDS ORDERED: CEFTRIAXONE SOD INJ 1 GM ADDVIAL IV SCH (09:00)
[2016-07-17] MEDS ORDERED: METRONIDAZOLE 500 MG TAB PO SCH (09:00)
[2016-07-17] MEDS: THIAMINE HCL 100 MG TAB PO SCH (09:31)
[2016-07-17] MEDS: BUDESONIDE/FORMOTEROL FUMARATE 80/4.5 60 PUFFS/INHALER INH SCH ×2 (09:31→21:33)
[2016-07-17] MEDS: AMLODIPINE BESYLATE 5 MG TAB PO SCH (09:32)
[2016-07-17] MEDS: ASPIRIN 81 MG ECTAB PO SCH (09:32)
--- NOTE | 2016-07-17 09:37 | Progress Note ---
Internal Med Progress Note Date of Service: Jul 17, 2016. Provider Documentation: SUBJECTIVE: Patient does have diarrhea, multiple, loose in consistency, no abdominal pain, fever, chills. No nausea, vomiting, OBJECTIVE: Vital Signs-as noted below Exam: General-AAOX3, no distress, malnourished Eyes-No icterus Lungs-AEBE, no wheezing, rhonchi, rales Heart-S1, S2 normal, no murmurs Abdomen-Soft, non tender, non distended, BS present Extremities-No edema Lab data as noted below. ASSESSMENT & PLAN: ASSESSMENT AND PLAN : DIARRHEA SECONDARY TO C DIFF COLITIS Patient came in with diarrhea, multiple episodes x 3 days---> worsened and thus came to ER. C diff came back positive -Contributing factor: Recent confinement for pneumonia and was treated with antibiotics -Afebrile, Leucocytosis- trending down -Vancomycin PO QID (Day 1) -CT scan- pancolitis, pancreas- unremarkable, with normal lipase, ? pyelonephritis/cystitis but no symptoms and UA is negative. HTN- Stable -Says doesnt take lisinopril as had some allergy to it. -[facility] -No signs of exacerbation MALNOURISHED Tooling Specialist consult placed DVT PROPHYLAXIS Lovenox SQ FULL CODE DISPOSITION Medical mx in progress Expected dc home when stable Vital Signs: Date Time Temp Pulse Resp B/P (MAP) Pulse Ox O2 Delivery O2 Flow Rate FiO2 07/17/16 07:39 36.6 67 16 131/74 (93) 99 Room Air 07/17/16 00:00 36.9 73 18 133/75 (94) 94 Room Air 07/17/16 00:00 Room Air 07/16/16 21:45 37.0 72 18 154/84 94 Room Air 07/16/16 21:30 76 18 128/73 94 07/16/16 20:47 77 18 120/72 97 Room Air 07/16/16 17:54 70 18 143/83 97 Room Air 07/16/16 16:14 88 16 126/72 96 Room Air 07/16/16 15:07 37.2 100 18 127/80 91 Room Air Lab Results: Results Past 24 Hours Test 07/16/16 16:10 07/16/16 18:09 07/17/16 05:40 Range/Units White Blood Count 24.20 15.13 4.8-10.8 K/uL Red Blood Count 4.04 3.65 4.7-6.1 M/uL Hemoglobin 14.2 12.8 14.0-18.0 g/dL Hematocrit 42.1 38.3 42-52 % Mean Corpuscular Volume 104.2 104.9 80-100 fL Mean Corpuscular Hemoglobin 35.1 35.1 25-34 pg Mean Corpuscular Hemoglobin Concent 33.7 33.4 32-36 g/dl Platelet Count 388 341 130-400 K/uL Mean Platelet Volume 11.0 10.7 7.4-10.4 fL Neutrophils (%) (Auto) 87.1 82.5 % Lymphocytes (%) (Auto) 8.5 6.4 % Monocytes (%) (Auto) 4.0 9.9 % Eosinophils (%) (Auto) 0.1 0.7 % Basophils (%) (Auto) 0.1 0.2 % Neutrophils # (Auto) 21.09 12.48 1.4-6.5 K/uL Lymphocytes # (Auto) 2.05 0.97 1.2-3.4 K/uL Monocytes # (Auto) 0.96 1.50 0.11-0.59 K/uL Eosinophils # (Auto) 0.02 0.11 0-0.5 K/uL Basophils # (Auto) 0.02 0.03 0-0.2 K/uL RDW Standard Deviation 50.5 50.5 36.4-46.3 fL RDW Coefficient of Variation 13.3 13.2 11.5-14.5 % Immature Granulocyte % (Auto) 0.2 0.3 % Immature Granulocyte # (Auto) 0.06 0.04 0.00-0.02 K/uL Sodium Level 131 137 136-145 mmol/L Potassium Level 4.0 3.8 3.5-5.1 mmol/L Chloride Level 93 102 98-107 mmol/L Carbon Dioxide Level 27 27 21-32 mmol/L Anion Gap 11.0 8.0 3-11 mmol/L Blood Urea Nitrogen 15 11 7-18 mg/dl Creatinine 1.30 0.78 0.60-1.40 mg/dl Est Creatinine Clear Calc Drug Dose 43.1 71.8 ml/min Estimated GFR () 70.7 117.0 Estimated GFR (Non- 61.0 100.9 BUN/Creatinine Ratio 11.3 14.3 10-20 Random Glucose 72 75 70-99 mg/dl Lactic Acid Level 1.0 0.4-2.0 mmol/L Calcium Level 9.4 8.0 8.5-10.1 mg/dl Magnesium Level 1.8 1.8-2.4 mg/dl Total Bilirubin 0.6 0.2-1 mg/dl Aspartate Amino Transf (AST/SGOT) 19 15-37 U/L Alanine Aminotransferase (ALT/SGPT) 20 12-78 U/L Alkaline Phosphatase 82 45-117 U/L Total Protein 7.4 6.4-8.2 gm/dl Albumin 3.6 3.4-5.0 gm/dl Globulin 3.8 2.5-4.0 gm/dl Albumin/Globulin Ratio 0.9 0.9-2 Lipase 101 73-393 U/L Urine Color YELLOW Urine Appearance CLEAR CLEAR Urine pH 5.0 4.5-7.5 Urine Specific [place] 1.010 1.000-1.030 Urine Protein NEG NEG Urine Glucose (UA) NEG NEG Urine Ketones 1+ NEG Urine Occult Blood NEG NEG Urine Nitrite NEG NEG Urine Bilirubin NEG NEG Urine Urobilinogen NEG NEG Urine Leukocyte Esterase TRACE NEG Urine WBC (Auto) 1-5 0-5 /hpf Urine RBC (Auto) 0-4 0-4 /hpf Urine Hyaline Casts (Auto) 1-5 0-5 /lpf Urine Epithelial Cells (Auto) 5-10 0-5 /lpf Urine Bacteria (Auto) NEG NEG Microbiology Results 07/16/16 Blood Culture, Received Pending 07/16/16 Blood Culture, Received Pending 07/16/16 Urine Culture, Received Pending
[2016-07-17] MEDS: CYANOCOBALAMIN 500 MCG TAB (VIT B-12) PO SCH (10:52)
[2016-07-17] MEDS: LACTOBACILLUS ACIDOPHILUS (FLORANEX) TAB PO SCH ×2 (12:22→15:44)
[2016-07-17 16:00] VITALS: BP 123/76; PULSE 64; TEMP 37; O2SAT 98; O2SAT 99
[2016-07-17] MEDS: BOOST BREEZE NUTRITION DRINK 1 BOX PO SCH (17:00)
[2016-07-18 00:03] VITALS: BP 116/71; PULSE 71; TEMP 36.9; O2SAT 98
[2016-07-18] MEDS: VANCOMYCIN HCL 125 MG/2.5ML SOLN PO SCH ×4 (03:34→21:25)
[2016-07-18] MEDS: RASPBERRY SYRUP 5 ML UDP PO SCH ×4 (03:34→21:26)
[2016-07-18] MEDS: HEPARIN SOD 5000 UNIT/0.5 ML CARP SQ SCH ×3 (05:48→21:26)
[2016-07-18 07:30] LABS: HEMATOCRIT 38.6 % (42-52); MEAN CELL VOLUME 104.3 fL (80-100); MEAN CORPUSCULAR HEMOGLOBIN 34.6 pg (25-34); MEAN CORPUSCULAR HGB CONC 33.2 g/dl (32-36); MEAN PLATELET VOLUME 10.6 fL (7.4-10.4); PLATELET COUNT 322 K/uL (130-400); WHITE BLOOD COUNT 7.53 K/uL (4.8-10.8)
[2016-07-18 07:41] VITALS: BP 139/81; PULSE 56; TEMP 36.7; O2SAT 98
[2016-07-18 08:17] LABS: BUN/CREATININE RATIO 7.8 (10-20); CALCIUM 8.5 mg/dl (8.5-10.1); CREATININE 0.76 mg/dl (0.60-1.40); POTASSIUM 3.8 mmol/L (3.5-5.1)
[2016-07-18] MEDS: NICOTINE 7 MG/24 HR TDSY TD SCH (08:36)
[2016-07-18] MEDS: BOOST BREEZE NUTRITION DRINK 1 BOX PO SCH ×2 (08:47→16:37)
[2016-07-18] MEDS: CYANOCOBALAMIN 500 MCG TAB (VIT B-12) PO SCH (08:48)
[2016-07-18] MEDS: BUDESONIDE/FORMOTEROL FUMARATE 80/4.5 60 PUFFS/INHALER INH SCH ×2 (08:49→21:25)
[2016-07-18] MEDS: AMLODIPINE BESYLATE 5 MG TAB PO SCH (08:49)
[2016-07-18] MEDS: ASPIRIN 81 MG ECTAB PO SCH (08:49)
[2016-07-18] MEDS: LACTOBACILLUS ACIDOPHILUS (FLORANEX) TAB PO SCH ×3 (08:49→16:37)
[2016-07-18] MEDS: THIAMINE HCL 100 MG TAB PO SCH (08:49)
--- NOTE | 2016-07-18 09:49 | Progress Note ---
Internal Med Progress Note Date of Service: Jul 18, 2016. Provider Documentation: SUBJECTIVE: Patient is doing much better today. Diarrhea has improved- frequency better, still persistent. None since AM but had multiple BMs yesterday. No nausea, vomiting. OBJECTIVE: Vital Signs-as noted below Exam: General-AAOX3, no distress, malnourished Eyes-No icterus Lungs-AEBE, no wheezing, rhonchi, rales Heart-S1, S2 normal, no murmurs Abdomen-Soft, non tender, non distended, BS present Extremities-No edema Lab data as noted below. ASSESSMENT & PLAN: ASSESSMENT AND PLAN : DIARRHEA SECONDARY TO C DIFF COLITIS : Patient came in with diarrhea, multiple episodes x 3 days ---> worsened and thus came to ER. C diff came back positive -Contributing factor: Recent confinement for pneumonia and was treated with antibiotics -Afebrile, Leucocytosis- resolved -Vancomycin PO QID (Day 2); Probiotics added -CT scan- pancolitis, pancreas- unremarkable, with normal lipase, ? pyelonephritis/cystitis but no symptoms and UA is negative. HTN : Stable -Says doesn't take lisinopril as had some allergy to it. -Continue with Norvasc COPD : -No signs of exacerbation MALNOURISHED -BMI 17.6 -Neckties Painter consult placed DVT PROPHYLAXIS Lovenox SQ FULL CODE DISPOSITION Likely discharge in AM Expected discharge home when stable Vital Signs: Date Time Temp Pulse Resp B/P (MAP) Pulse Ox O2 Delivery O2 Flow Rate FiO2 07/18/16 08:00 Room Air 07/18/16 07:41 36.7 56 16 139/81 (100) 98 Room Air 07/18/16 00:03 36.9 71 16 116/71 (86) 98 Room Air 07/18/16 00:00 Room Air 07/17/16 16:00 37.0 64 18 123/76 (92) 98 Room Air 07/17/16 16:00 99 Room Air Lab Results: Results Past 24 Hours Test 07/18/16 07:06 Range/Units White Blood Count 7.53 4.8-10.8 K/uL Red Blood Count 3.70 4.7-6.1 M/uL Hemoglobin 12.8 14.0-18.0 g/dL Hematocrit 38.6 42-52 % Mean Corpuscular Volume 104.3 80-100 fL Mean Corpuscular Hemoglobin 34.6 25-34 pg Mean Corpuscular Hemoglobin Concent 33.2 32-36 g/dl RDW Standard Deviation 49.6 36.4-46.3 fL RDW Coefficient of Variation 13.0 11.5-14.5 % Platelet Count 322 130-400 K/uL Mean Platelet Volume 10.6 7.4-10.4 fL Sodium Level 137 136-145 mmol/L Potassium Level 3.8 3.5-5.1 mmol/L Chloride Level 102 98-107 mmol/L Carbon Dioxide Level 29 21-32 mmol/L Anion Gap 6.0 3-11 mmol/L Blood Urea Nitrogen 6 7-18 mg/dl Creatinine 0.76 0.60-1.40 mg/dl Est Creatinine Clear Calc Drug Dose 73.7 ml/min Estimated GFR () 118.2 Estimated GFR (Non- 102.0 BUN/Creatinine Ratio 7.8 10-20 Random Glucose 83 70-99 mg/dl Calcium Level 8.5 8.5-10.1 mg/dl
[2016-07-18 15:50] VITALS: BP 124/75; PULSE 63; TEMP 37.4; O2SAT 97
[2016-07-18 23:23] VITALS: BP 156/84; PULSE 62; TEMP 36.8; O2SAT 98
[2016-07-19] MEDS: RASPBERRY SYRUP 5 ML UDP PO SCH ×2 (04:02→10:16)
[2016-07-19] MEDS: VANCOMYCIN HCL 125 MG/2.5ML SOLN PO SCH ×2 (04:02→10:16)
[2016-07-19] MEDS: HEPARIN SOD 5000 UNIT/0.5 ML CARP SQ SCH (05:48)
[2016-07-19 07:28] VITALS: BP 146/86; PULSE 54; TEMP 36.7; O2SAT 95
[2016-07-19] MEDS: BOOST BREEZE NUTRITION DRINK 1 BOX PO SCH (08:24)
[2016-07-19] MEDS: NICOTINE 7 MG/24 HR TDSY TD SCH (08:25)
[2016-07-19] MEDS: BUDESONIDE/FORMOTEROL FUMARATE 80/4.5 60 PUFFS/INHALER INH SCH (08:34)
[2016-07-19] MEDS: LACTOBACILLUS ACIDOPHILUS (FLORANEX) TAB PO SCH (08:35)
[2016-07-19] MEDS: ASPIRIN 81 MG ECTAB PO SCH (08:35)
[2016-07-19] MEDS: AMLODIPINE BESYLATE 5 MG TAB PO SCH (08:35)
[2016-07-19] MEDS: THIAMINE HCL 100 MG TAB PO SCH (08:35)
[2016-07-19] MEDS: CYANOCOBALAMIN 500 MCG TAB (VIT B-12) PO SCH (08:35)
--- NOTE | 2016-07-19 08:57 | Progress Note ---
Internal Med Progress Note Date of Service: Jul 19, 2016. Provider Documentation: SUBJECTIVE : Patient is doing much better today. Diarrhea has improved- frequency better, consistency better. None since AM. Tolerating PO well. No nausea, vomiting. OBJECTIVE: Vital Signs-as noted below Exam: General-AAOX3, no distress, malnourished Eyes-No icterus Lungs-AEBE, no wheezing, rhonchi, rales Heart-S1, S2 normal, no murmurs Abdomen-Soft, non tender, non distended, BS present Extremities-No edema Lab data as noted below. ASSESSMENT & PLAN: ASSESSMENT AND PLAN : DIARRHEA SECONDARY TO C DIFF COLITIS : Improved Patient came in with diarrhea, multiple episodes x 3 days ---> worsened and thus came to ER. C diff came back positive -Contributing factor: Recent confinement for pneumonia and was treated with antibiotics -Afebrile, Leucocytosis- resolved -Vancomycin PO QID (Day 04/24); Probiotics added -CT scan- pancolitis, pancreas- unremarkable, with normal lipase, ? pyelonephritis/cystitis but no symptoms and UA is negative. HTN : Stable -Says doesn't take lisinopril as had some allergy to it. -Continue with Norvasc COPD : -No signs of exacerbation MALNOURISHED -BMI 17.6 -Industrial Technology Education Teacher consult placed DVT PROPHYLAXIS Lovenox SQ FULL CODE DISPOSITION Ok to discharge home today. Vital Signs: Date Time Temp Pulse Resp B/P (MAP) Pulse Ox O2 Delivery O2 Flow Rate FiO2 07/19/16 08:00 Room Air 07/19/16 07:28 36.7 54 16 146/86 (106) 95 Room Air 07/19/16 00:00 Room Air 07/18/16 23:23 36.8 62 16 156/84 (108) 98 Room Air 07/18/16 16:00 Room Air 07/18/16 15:50 37.4 63 18 124/75 (91) 97 Room Air
--- NOTE | 2016-07-19 09:07 | Progress Note ---
Internal Med Progress Note Date of Service: Jul 19, 2016. Provider Documentation: SUBJECTIVE : Patient is doing much better today. Diarrhea has improved- frequency better, consistency better. None since AM. Tolerating PO well. No nausea, vomiting. OBJECTIVE: Vital Signs-as noted below Exam: General-AAOX3, no distress, malnourished Eyes-No icterus Lungs-AEBE, no wheezing, rhonchi, rales Heart-S1, S2 normal, no murmurs Abdomen-Soft, non tender, non distended, BS present Extremities-No edema Lab data as noted below. ASSESSMENT & PLAN: ASSESSMENT AND PLAN : DIARRHEA SECONDARY TO C DIFF COLITIS : Improved Patient came in with diarrhea, multiple episodes x 3 days ---> worsened and thus came to ER. C diff came back positive -Contributing factor: Recent confinement for pneumonia and was treated with antibiotics -Afebrile, Leucocytosis- resolved -Vancomycin PO QID (Day 04/24); Probiotics added -CT scan- pancolitis, pancreas- unremarkable, with normal lipase, ? pyelonephritis/cystitis but no symptoms and UA is negative. HTN : Stable -Says doesn't take lisinopril as had some allergy to it. -Continue with Norvasc COPD : -No signs of exacerbation MALNOURISHED -BMI 17.6 -Assistant Service Manager consult placed- appreciate inputs, recommended boost BID DVT PROPHYLAXIS Lovenox SQ FULL CODE DISPOSITION Ok to discharge home today. Vital Signs: Date Time Temp Pulse Resp B/P (MAP) Pulse Ox O2 Delivery O2 Flow Rate FiO2 07/19/16 08:00 Room Air 07/19/16 07:28 36.7 54 16 146/86 (106) 95 Room Air 07/19/16 00:00 Room Air 07/18/16 23:23 36.8 62 16 156/84 (108) 98 Room Air 07/18/16 16:00 Room Air 07/18/16 15:50 37.4 63 18 124/75 (91) 97 Room Air
[2016-07-19] MEDS ORDERED: SACC250C PEG (09:09)
[2016-07-19] MEDS ORDERED: VNCS125 PO (09:09)
--- NOTE | 2016-07-19 09:13 | Discharge Summary ---
Discharge Summary Date of Service Jul 19, 2016. Discharge Summary Admission Date: Jul 16, 2016 at 19:49 Discharge Date: Jul 19, 2016 Discharge Disposition: Home Principal Diagnosis: 1. Clostridium Difficile colitis Secondary Diagnoses/Problems: 1. COPD 2. HTN 3. Malnourished Procedures: X ray abd CT scan abd/pelvis Antibiotics Consultations: None Pending Studies/Follow-Up: . Instructions / Follow-Up Instructions / Follow-Up MEDICATION CHANGES: 1. New medication: Vancomycin 125 mg PO QID X 8 more days to complete course of 10 days of antibiotics 2. New medication; Probiotics for 1 month FOLLOW UP 1. Follow up with Dr. Del Cid in 1 week. You will get a call from office about appointment date/time Medication Reconciliation New Medications: Saccharomyces Boulardii (Florastor) 250 Mg Cap 1 CAP PEG BID for 30 Days, #60 CAP Vancomycin HCl (Vancomycin HCl) 125 Mg/2.5 Ml Susp 125 MG PO Q6H for 8 Days, #80 ML 0 Refills Continued Medications: Albuterol (Ventolin Hfa) 60 Puffs/5400 Mcg Aers 90 MCG INH Q4H for SOB/Wheezing for 30 Days, #1 INHALER 2 Refills Amlodipine Besylate (Amlodipine Besylate) 5 Mg Tab 5 MG PO QAM for 30 Days, #30 TAB Aspirin (Aspirin Ec) 81 Mg Tab 81 MG PO DAILY Budesonide/Formoterol Fumarate (Symbicort 80/4.5 Inhaler) Aero 2 PUFFS INH BID for 30 Days, #1 INHALER Cyanocobalamin (Vitamin B-12) 1,000 Mcg Tab 1000 MCG PO DAILY, TAB Folic Acid (Folic Acid) 1 Mg Tab 1 MG PO QAM for 30 Days, #30 TAB Lisinopril (Zestril) 10 Mg Tab 10 MG PO DAILY, TAB Magnesium Oxide (Mag-Ox) 400 Mg Tab 400 MG PO DAILY, TAB Thiamine HCl (Vitamin B-1) 100 Mg Tab 100 MG PO QAM for 30 Days, #30 TAB Admission Information HPI (per Admitting provider): HISTORY OF PRESENT ILLNESS: History obtained from patient and records. Medical history significant for COPD, ongoing tobacco abuse; hypertension, PVD, history of torsades de pointes. past ETOH abuse. Recent confinement a few weeks ago for for COPD exacerbation, multilobar pneumonia. Patient also developed torsades de pointes during confinement attributed to hypomagnesemia. Seen by Cardiology. TTE EF of about 60-65%. Outpatient stress test recommended. The last 2 days, the patient noted diarrhea dripping, nonbloody. No nausea, some abdominal discomfort. No chest pain, no shortness of breath, no fever, no chills. No dysuria but admits to urinary hesitancy symptoms. At the Emergency Room, CT scan showed pancolitis. Patient received Cipro and Flagyl. Hospital Course ASSESSMENT AND PLAN : DIARRHEA SECONDARY TO C DIFF COLITIS : Improved Patient came in with diarrhea, multiple episodes x 3 days ---> worsened and thus came to ER. C diff came back positive -Contributing factor: Recent confinement for pneumonia and was treated with antibiotics -Afebrile, Leucocytosis- resolved -Vancomycin PO QID (Day 04/24); Probiotics added -CT scan- pancolitis, pancreas- unremarkable, with normal lipase, ? pyelonephritis/cystitis but no symptoms and UA is negative. HTN : Stable -Says doesn't take lisinopril as had some allergy to it. -Continue with Norvasc COPD : -No signs of exacerbation MALNOURISHED -BMI 17.6 -Sample Wrapper consult placed- appreciate inputs, recommended boost BID DVT PROPHYLAXIS Lovenox SQ FULL CODE DISPOSITION Ok to discharge home today. Total time spent on discharge = This includes examination of the patient, discharge planning, medication reconciliation, and communication with other providers. Discharge Instructions Activity Recommendations Activity Limitations: resume your previous activity . Instructions / Follow-Up Instructions / Follow-Up MEDICATION CHANGES: 1. New medication: Vancomycin 125 mg PO QID X 8 more days to complete course of 10 days of antibiotics 2. New medication; Probiotics for 1 month FOLLOW UP 1. Follow up with Dr. Del Cid in 1 week. You will get a call from office about appointment date/time Current Hospital Diet Patient's current hospital diet: Low Lactose Diet, Low Fiber Diet Discharge Diet Recommended Diet: Regular Diet (Low lactulose as tolerated) Pending Studies Studies pending at discharge: no Laboratory Results Hemoglobin A1c Test 06/23/16 04:00 Range/Units Estimated Average Glucose 108 mg/dl Hemoglobin A1c 5.4 4.5-5.6 % Medical Emergencies . Who to Call and When: Medical Emergencies: If at any time you feel your situation is an emergency, please call 911 immediately. . Non-Emergent Contact Non-Emergency issues call your: Primary Care Provider . . "Provider Documentation" section prepared by Adali Hamilton. . VTE Core Measure Inpt VTE Proph given/why not?: Jamari Palmer, SCD's
[2016-07-19 09:34] VITALS: BP 146/86; PULSE 54; TEMP 36.7; O2SAT 95
== END 2016-07-19 11:00 | disposition home or self-care (01) | DRG 372 ==
LOC: C.EDB 14:47 → C.MED 19:49 → ENRESERV 20:56
PROVIDERS: ADMIT Internal Medicine; ATTEND Internal Medicine
DX: A04.7 Enterocolitis due to Clostridium difficile (principal); E46 Unspecified protein-calorie malnutrition; Z68.1 Body mass index [BMI] 19.9 or less, adult; E87.1 Hypo-osmolality and hyponatremia; J44.9 Chronic obstructive pulmonary disease, unspecified; F17.210 Nicotine dependence, cigarettes, uncomplicated; I10 Essential (primary) hypertension; I73.9 Peripheral vascular disease, unspecified; Z87.01 Personal history of pneumonia (recurrent); E86.0 Dehydration; E83.42 Hypomagnesemia; D72.829 Elevated white blood cell count, unspecified; Z79.899 Other long term (current) drug therapy; Z79.82 Long term (current) use of aspirin; Z82.49 Family history of ischemic heart disease and other diseases of the circulatory system

== ENCOUNTER 2021-10-13 04:49 | Observation (INO) ==
[2021-10-13] MEDS ORDERED: methylPREDNISolone 125 MG/2 ML VIAL IV STA (05:06)
[2021-10-13] MEDS ORDERED: ASPIRIN CHEW 324 MG PO STA (05:06)
--- NOTE | 2021-10-13 05:14 | Emergency Department Note ---
History of Present Illness General Chief complaint: Cardiac Assessment Time Seen by Provider: 10/13/21 05:01 History of Present Illness Maximum Pain Intensity: 10 61-year-old male presents emergency department states at 11 PM he developed left-sided chest pain that radiates to his back. Patient states is dull not pleuritic in nature. Patient does state shortness of breath. Patient is a smoker. Patient denies fever. Patient states cough with sputum production. Patient denies hemoptysis. Is not vaccinated against COVID. There are no other mitigating or alleviating factors Home Medications Medication Instructions Recorded Confirmed Type ASPIRIN (ASPIRIN EC) 81 mg PO DAILY ##0 06/22/16 History Cyanocobalamin (Vitamin B-12) 1,000 mcg PO DAILY #0 tabs 06/22/16 History Lisinopril (Zestril) 10 mg PO DAILY #0 tabs 06/22/16 History Albuterol (Ventolin Hfa) 90 mcg inhalation Q4H SOB/Wheezing 06/27/16 Rx 30 days #1 inhaler Amlodipine Besylate 5 mg PO QAM 30 days #30 tabs 06/27/16 Rx Folic Acid 1 mg PO QAM 30 days #30 tabs 06/27/16 Rx Thiamine HCl (Vitamin B-1) 100 mg PO QAM 30 days #30 tabs 06/27/16 Rx Magnesium Oxide (Mag-Ox) 400 mg PO DAILY #0 tabs 07/16/16 History SACCHAROMYCES BOULARDII (FLORASTOR) 1 cap PEG BID 30 days #60 caps 07/19/16 Rx Vancomycin HCl 125 mg PO Q6H 8 days #80 mL 07/19/16 Rx Allergies Allergy/AdvReac Type Severity Reaction Status Date / Time No Known Allergies Allergy Unverified 06/22/16 22:11 Past Med/Surg History Social History Smoking Status: Heavy tobacco smoker Tobacco Type: Cigarettes Preferred Language: Pashto Feels Safe at Home: Yes Immunizations: Past medical history COPD, hypertension Review of Systems A total of 10 systems reviewed and were otherwise negative Constitutional: no fever Respiratory: + cough; no dyspnea Cardiovascular: + chest pain Gastrointestinal: no abdominal pain Physical Exam Vital Signs Vital Signs - 24 hr 10/13/21 04:57 10/13/21 05:23 10/13/21 05:31 Temperature 37.2 C Temperature Source Oral Pulse Rate 84 Pulse Rate [Apical] Respiratory Rate 24 Respiratory Effort / Characteristics Short of Breath Labored Short of Breath SOB on Exertion Respiratory Depth Shallow Blood Pressure 157/99 H Blood Pressure [Right Arm] Blood Pressure Mean 118 Blood Pressure Mean [Right Arm] Blood Pressure Position Semi-fowlers Pulse Oximetry 95 97 Oxygen Delivery Method Room Air Room Air Room Air Sepsis Recent Fever Within 48 Hours No Sepsis New/Unexplained Change in Mental Status No Sepsis Action Taken by Nursing No Action Required 10/13/21 05:31 10/13/21 05:31 10/13/21 05:31 Temperature Temperature Source Pulse Rate Pulse Rate [Apical] 81 Respiratory Rate 25 H Respiratory Effort / Characteristics Spontaneous Accessory Muscle Use Short of Breath Respiratory Depth Normal Blood Pressure Blood Pressure [Right Arm] 179/100 H Blood Pressure Mean Blood Pressure Mean [Right Arm] 126 Blood Pressure Position Pulse Oximetry 97 Oxygen Delivery Method Room Air Room Air Sepsis Recent Fever Within 48 Hours Sepsis New/Unexplained Change in Mental Status Sepsis Action Taken by Nursing VITAL SIGNS - Vital signs and nursing notes were reviewed. GENERAL - no acute distress. Communicates well with provider and answers questions appropriately. SKIN - Without rashes. HEAD - NC/AT. EYES - PERRL with EOMI bilaterally. Sclera anicteric. Palpebral conjunctiva pink and moist with no injection noted. EARS - No deformities of external structures noted on gross examination bilaterally. NOSE - Midline and without cyanosis. No epistaxis or purulent drainage noted. Septum midline without deviation or septal hematoma noted. MOUTH/OROPHARYNX - Without perioral cyanosis. Buccal mucosa pink and moist NECK - Neck with FROM. Supple to palpation.. No nuchal rigidity. LUNGS - Chest wall symmetric without accessory muscle use, intercostals retractions, or central cyanosis. Normal vesicular breath sounds CTA B/L. No wheezes, rales, or rhonchi appreciated. CARDIAC - RRR with S1/S2. No murmur, rubs, or gallops appreciated. ABDOMEN - Abdominal contour soft without pulsations or visible masses. BS normoactive all four quadrants. No tenderness, palpable masses, hepatosplenomegaly, or ascites noted. EXTREMITIES - No clubbing or peripheral cyanosis. No pretibial edema present. . +5/5 strength noted in UE/LE bilaterally. NEUROLOGIC - Cranial nerves II through XII grossly intact. PSYCH - A&Ox3 and cooperates fully with examiner. Pt is very pleasant and interacts well with examiner. Course Reevaluation(s) Reevaluation #1: Patient resting in no distress not tachycardic not hypoxic. Patient was given IV Solu-Medrol, Rocephin, Zithromax. Patient was given aspirin. Patient is resting in no distress currently. Patient has a clinical picture of COPD likely pneumonia and chest pain Time: 05:39 Consultations Consultation #1: Spoke with Dr. Altman for admit Time: 05:56 Administered Medications Discontinued Medications Amlodipine Besylate (Amlodipine Besylate 5 Mg Tab) 2.5 mg PO NOW STA Stop: 10/13/21 06:00 Last Admin: 10/13/21 06:08 Dose: 2.5 mg Documented By: CHRISTIANE Aspirin (Aspirin Chew 324 Mg) 324 mg PO NOW STA Stop: 10/13/21 05:07 Last Admin: 10/13/21 05:22 Dose: 324 mg Documented By: CHRISTIANE Ceftriaxone Sodium (Rocephin) 1,000 mg in 50 mls @ 100 mls/hr IV NOW STA Stop: 10/13/21 05:53 Last Admin: 10/13/21 06:06 Dose: 100 mls/hr Documented By: CHRISTIANE Azithromycin 500 mg/ Dextrose 255 mls @ 125 mls/hr IV ONE ONE Stop: 10/13/21 07:26 Last Admin: 10/13/21 05:58 Dose: Not Given Documented By: CHRISTIANE Methylprednisolone (Methylprednisolone 125 Mg/2 Ml Vial) 125 mg IV NOW STA Stop: 10/13/21 05:07 Last Admin: 10/13/21 05:22 Dose: 125 mg Documented By: CHRISTIANE Medical Decision Making Medical Records Attestation: I reviewed the patient's medical records. Home Medications Current Medication List: was personally reviewed by me Laboratory Data Attestation: I reviewed the patient's lab results. Result diagrams: 10/13/21 05:00 10/13/21 05:00 Lab Results 10/13/21 10/13/21 10/13/21 Range/Units 05:00 05:00 05:00 WBC 15.98 H (4.8-10.8) K/ul RBC 3.83 L (4.63-6.08) M/uL Hgb 13.7 L (14.0-18.0) g/dl Hct 38.3 L (40.1-51.0) % MCV 100.0 (80.0-100.0) fL MCH 35.8 H (25.0-34.0) pg MCHC 35.8 (32.0-36.0) g/dL RDW Std Deviation 51.0 H (36.4-46.3) fL RDW Coeff of Antony 13.9 (11.5-14.5) % Plt Count 155 (130-400) K/uL MPV 11.1 (9.4-12.4) fL Immature Gran % (Auto) 0.4 % Neut % (Auto) 86.1 % Lymph % (Auto) 2.8 % [place] % (Auto) 10.5 % Eos % (Auto) 0.0 % Baso % (Auto) 0.2 % Neut # (Auto) 13.77 H (1.4-6.5) K/uL Lymph # (Auto) 0.44 L (1.2-3.4) K/uL [place] # (Auto) 1.68 H (0.24-0.82) K/uL Eos # (Auto) 0.00 (0-0.50) K/uL Baso # (Auto) 0.03 (0-0.2) K/uL Immature Gran # (Auto) 0.06 H (0.00-0.02) K/uL PT 9.6 (9.0-12.0) Seconds INR 0.9 (0.9-1.1) APTT 25.0 (21.0-31.0) Seconds PTT Ratio 0.9 Sodium 132 L (136-145) mmol/L Potassium 4.8 (3.5-5.1) mmol/L Chloride 90 L (98-107) mmol/L Carbon Dioxide 28 (21-32) mmol/L Anion Gap 14 H (3-11) BUN 26 H (6-23) mg/dl Creatinine 0.76 (0.6-1.4) mg/dl Est Cr Clr Drug Dosing Not Reportable Est GFR ( Amer) 113.3 ml/min Est GFR (Non-Af Amer) 97.8 ml/min BUN/Creatinine Ratio 34.2 H (10-20) Glucose 143 H (70-99(Fasting)) mg/dl Calcium 9.4 (8.5-10.1) mg/dl Total Bilirubin 2.4 H (0.2-1.0) mg/dl AST 63 H (13-39) U/L ALT 24 (7-52) U/L Alkaline Phosphatase 73 (34-104) U/L Troponin I High Sens 15.2 (0-20) pg/ml Total Protein 7.5 (6.0-8.3) gm/dl Albumin 4.6 (3.4-5.0) gm/dl Globulin 2.9 (2.5-4.0) gm/dl Albumin/Globulin Ratio 1.6 (0.9-2) ECG Data Attestation: I personally reviewed and interpreted this ECG as follows: Additional Comments: EG interpreted by me normal sinus rhythm left axis deviation rate of 82 poor R wave progression the precordium, no obvious ST segment elevation or depression MDM Narrative Medical decision making differential diagnosis includes angina unstable angina acute coronary syndrome acute UT COPD exacerbation pneumonia rib strain pleurisy. Plan is to check EKG, chest x-ray, labs. Impression & Plan COPD (chronic obstructive pulmonary disease), Chest pain Discharge Plan Visit Data Chief Complaint: Cardiac Assessment ED Provider: Garrick Dodson Discharge Problem: COPD (chronic obstructive pulmonary disease), Chest pain Patient Disposition: Being Evaluated by Hospitalist Forms Stand Alone Forms: My [facility] Prescriptions Prescriptions: No Action ASPIRIN (ASPIRIN EC) 81 MG tablet 81 mg PO DAILY Qty: 0 Cyanocobalamin (Vitamin B-12) 1,000 MCG tablet 1,000 mcg PO DAILY Qty: 0 Lisinopril (Zestril) 10 MG tablet 10 mg PO DAILY Qty: 0 Folic Acid 1 MG tablet 1 mg PO QAM 30 Days Qty: 30 0RF Thiamine HCl (Vitamin B-1) 100 MG tablet 100 mg PO QAM 30 Days Qty: 30 0RF Albuterol (Ventolin Hfa) 60 PUFFS/5,400 MCG AEROSOL,SOLN 90 mcg Inhalation Q4H 30 Days Qty: 1 2RF Amlodipine Besylate 5 MG tablet 5 mg PO QAM 30 Days Qty: 30 0RF Magnesium Oxide (Mag-Ox) 400 MG tablet 400 mg PO DAILY Qty: 0 SACCHAROMYCES BOULARDII (FLORASTOR) 250 MG capsule 1 cap PEG BID 30 Days Qty: 60 0RF Vancomycin HCl 125 MG/2.5 ML suspension 125 mg PO Q6H 8 Days Qty: 80 0RF Referrals Referrals: Macario Rajput MD [Primary Care Provider] -
[2021-10-13 05:17] LABS: Basophils # (auto) 0.03 K/uL (0-0.2); Basophils % (auto) 0.2 %; Hematocrit (blood only) 38.3 % (40.1-51.0); Hemoglobin 13.7 g/dl (14.0-18.0); Immature Granulocytes # (auto) 0.06 K/uL (0.00-0.02); Immature Granulocytes % (auto) 0.4 %; Lymphocytes # (auto) 0.44 K/uL (1.2-3.4); Lymphocytes % (auto) 2.8 %; Mean Corpuscular Hemoglobin 35.8 pg (25.0-34.0); Mean Corpuscular Hgb Conc 35.8 g/dL (32.0-36.0); Mean Platelet Volume 11.1 fL (9.4-12.4); Monocytes # (auto) 1.68 K/uL (0.24-0.82); Monocytes % (auto) 10.5 %; Neutrophils # (auto) 13.77 K/uL (1.4-6.5); Neutrophils % (auto) 86.1 %; Platelet Count 155 K/uL (130-400); RDW Coefficient of Variation 13.9 % (11.5-14.5); Red Blood Count 3.83 M/uL (4.63-6.08); White Blood Count 15.98 K/ul (4.8-10.8)
[2021-10-13] MEDS ORDERED: cefTRIAXone SODIUM 1,000 MG/50 ML BAG IV STA (05:24)
[2021-10-13] MEDS ORDERED: AZITHROMYCIN 500 MG in DEXTROSE 5% 250 ML IV ONE (05:24)
[2021-10-13 05:27] LABS: INR 0.9 (0.9-1.1); Partial Thromboplastin Ratio 0.9; Prothrombin Time 9.6 Seconds (9.0-12.0)
[2021-10-13 05:31] LABS: Alanine Aminotransferase 24 U/L (7-52); Albumin Globulin Ratio 1.6 (0.9-2); Albumin Level 4.6 gm/dl (3.4-5.0); Alkaline Phosphatase 73 U/L (34-104); Anion Gap 14 (3-11); Aspartate Aminotransferase 63 U/L (13-39); BUN Creatinine Ratio 34.2 (10-20); Bilirubin,Total 2.4 mg/dl (0.2-1.0); Blood Urea Nitrogen 26 mg/dl (6-23); Calcium 9.4 mg/dl (8.5-10.1); Carbon Dioxide 28 mmol/L (21-32); Chloride 90 mmol/L (98-107); Est GFR (African American) 113.3 ml/min; Est GFR (Non-African American) 97.8 ml/min; Globulin 2.9 gm/dl (2.5-4.0); Glucose 143 mg/dl (70-99(Fasting)); Potassium 4.8 mmol/L (3.5-5.1); Sodium 132 mmol/L (136-145); Total Protein 7.5 gm/dl (6.0-8.3)
[2021-10-13 05:34] LABS: Troponin I High Sensitivity 15.2 pg/ml (0-20)
--- NOTE | 2021-10-13 05:51 | History & Physical Report ---
Date of Service October 13, 2021 Assessment & Plan (1) COPD exacerbation: Plan: Complicated bronchitis, possible sepsis Pleuritic chest pain rule out pulmonary embolism HTN, elevated secondary to illness, noncompliant with home Amlodipine Rx, alcohol withdrawal possibly contributory PVD history of torsades de pointes Hyperglycemia rule out DM Alcoholic hepatitis, good prognosis with low Madrey's DF score Malnutrition (low BMI) Ongoing tobacco abuse Medical telemetry CS, Doxycycline Nebs RTC, prednisone course Pulmonary consult if without improvement CT chest PE study Resume amlodipine SONI S, DT precautions Check hemoglobin A1c Nutrition consult RE low BMI Nicotine patch as needed Full code Text document was generated using [employer] voice recognition software. It may contain grammatical or spelling errors. Kindly contact undersigned for clarification of any documentation item in question. History of Present Illness Chief Complaint: Worsening cough, shortness of breath, left-sided chest pain Primary Care Provider: Macario Rajput MD History obtained from patient and records. Medical history significant for COPD, ongoing tobacco abuse; hypertension, PVD, history of torsades de pointes, possibly alcohol abuse, history of medication noncompliance Last confinement 2016 for for C. difficile colitis. Patient discharged on vancomycin course. 2 days history of worsening junky cough symptoms productive of whitish-yellow sputum. Pleuritic chest pain with worsening shortness of breath. No known sick contacts. Patient has not received COVID-19 vaccination. Patient received Solu-Medrol and Ceftriaxone at the ER for possible COPD exacerbation. MEDICAL HISTORY: As above. SURGERIES: He has had tonsillectomy, adenoidectomy, dental surgery. 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 Allergies Allergy/AdvReac Type Severity Reaction Status Date / Time No Known Allergies Allergy Unverified 06/22/16 22:11 Home Medications Medication Instructions Recorded Confirmed Type Albuterol (Ventolin Hfa) 90 mcg inhalation Q4H SOB/Wheezing 06/27/16 Rx 30 days #1 inhaler Past Med/Surg History Social History Smoking Status: Heavy tobacco smoker Tobacco Type: Cigarettes Preferred Language: Latvian Feels Safe at Home: Yes Review of Systems Review of Systems: As per HPI, all other systems reviewed and negative Physical Exam Physical Exam: GENERAL: uncomfortable, underweight, anxious, tremulous, respiratory distress SKIN: Normal color, warm HEENT: [place] palpebral conjunctivae, no ptosis, dry buccal mucosa NECK : Supple, no tenderness CHEST : Decreased breath sounds, expiratory wheezes, no tenderness HEART : RRR, no obvious murmurs ABDOMEN: no distention, nontender EXTREMITIES : No LE swelling/tenderness, no other conspicuous deformities noted NEUROLOGIC : Coherent, no facial asymmetry, tremulous, gait and stance not assessed Results & Data Results & Data ([facility]) Vital Signs (Past 12 Hours) Vital Signs Temp Pulse Pulse Resp BP BP Pulse Ox 10/13/21 05:31 10/13/21 05:31 81 25 H 179/100 H 97 10/13/21 05:31 10/13/21 05:31 10/13/21 05:23 97 10/13/21 04:57 37.2 C 84 24 157/99 H 95 O2 Del Method 10/13/21 05:31 Room Air 10/13/21 05:31 10/13/21 05:31 Room Air 10/13/21 05:31 Room Air 10/13/21 05:23 Room Air 10/13/21 04:57 Room Air Laboratory Results Laboratory Results WBC 15.98 K/ul (4.8-10.8) H 10/13/21 05:00 RBC 3.83 M/uL (4.63-6.08) L 10/13/21 05:00 Hgb 13.7 g/dl (14.0-18.0) L 10/13/21 05:00 Hct 38.3 % (40.1-51.0) L 10/13/21 05:00 MCV 100.0 fL (80.0-100.0) 10/13/21 05:00 MCH 35.8 pg (25.0-34.0) H 10/13/21 05:00 MCHC 35.8 g/dL (32.0-36.0) 10/13/21 05:00 RDW Std Deviation 51.0 fL (36.4-46.3) H 10/13/21 05:00 RDW Coeff of Antony 13.9 % (11.5-14.5) 10/13/21 05:00 Plt Count 155 K/uL (130-400) 10/13/21 05:00 MPV 11.1 fL (9.4-12.4) 10/13/21 05:00 Immature Gran % (Auto) 0.4 % 10/13/21 05:00 Neut % (Auto) 86.1 % 10/13/21 05:00 Lymph % (Auto) 2.8 % 10/13/21 05:00 [place] % (Auto) 10.5 % 10/13/21 05:00 Eos % (Auto) 0.0 % 10/13/21 05:00 Baso % (Auto) 0.2 % 10/13/21 05:00 Neut # (Auto) 13.77 K/uL (1.4-6.5) H 10/13/21 05:00 Lymph # (Auto) 0.44 K/uL (1.2-3.4) L 10/13/21 05:00 [place] # (Auto) 1.68 K/uL (0.24-0.82) H 10/13/21 05:00 Eos # (Auto) 0.00 K/uL (0-0.50) 10/13/21 05:00 Baso # (Auto) 0.03 K/uL (0-0.2) 10/13/21 05:00 Immature Gran # (Auto) 0.06 K/uL (0.00-0.02) H 10/13/21 05:00 PT 9.6 Seconds (9.0-12.0) 10/13/21 05:00 INR 0.9 (0.9-1.1) 10/13/21 05:00 APTT 25.0 Seconds (21.0-31.0) 10/13/21 05:00 PTT Ratio 0.9 10/13/21 05:00 Sodium 132 mmol/L (136-145) L 10/13/21 05:00 Potassium 4.8 mmol/L (3.5-5.1) 10/13/21 05:00 Chloride 90 mmol/L (98-107) L 10/13/21 05:00 Carbon Dioxide 28 mmol/L (21-32) 10/13/21 05:00 Anion Gap 14 (3-11) H 10/13/21 05:00 BUN 26 mg/dl (6-23) H 10/13/21 05:00 Creatinine 0.76 mg/dl (0.6-1.4) 10/13/21 05:00 Est Cr Clr Drug Dosing Not Reportable 10/13/21 05:00 Est GFR ( Amer) 113.3 ml/min 10/13/21 05:00 Est GFR (Non-Af Amer) 97.8 ml/min 10/13/21 05:00 BUN/Creatinine Ratio 34.2 (10-20) H 10/13/21 05:00 Glucose 143 mg/dl (70-99(Fasting)) H 10/13/21 05:00 Estimat Average Glucose 117 mg/dl 10/13/21 05:00 Hemoglobin A1c 5.7 % (4.5-5.6) H 10/13/21 05:00 Lactate 1.4 mmol/L (0.4-2.0) 10/13/21 06:40 Calcium 9.4 mg/dl (8.5-10.1) 10/13/21 05:00 Magnesium 1.3 mg/dl (1.7-2.4) L 10/13/21 05:00 Total Bilirubin 2.4 mg/dl (0.2-1.0) H 10/13/21 05:00 AST 63 U/L (13-39) H 10/13/21 05:00 ALT 24 U/L (7-52) 10/13/21 05:00 Alkaline Phosphatase 73 U/L (34-104) 10/13/21 05:00 Troponin I High Sens 15.2 pg/ml (0-20) 10/13/21 05:00 Total Protein 7.5 gm/dl (6.0-8.3) 10/13/21 05:00 Albumin 4.6 gm/dl (3.4-5.0) 10/13/21 05:00 Globulin 2.9 gm/dl (2.5-4.0) 10/13/21 05:00 Albumin/Globulin Ratio 1.6 (0.9-2) 10/13/21 05:00 TSH 1.341 uIu/ml (0.300-4.500) 10/13/21 05:00 Ethyl Alcohol mg/dL < 10.0 mg/dl (<10.0) 10/13/21 06:40 SARS-CoV-2, RNA, NAAT NEGATIVE (NEGATIVE) 10/13/21 05:25 Diagnostic Findings Chest x-ray as per my interpretation hyperinflation EKG as per my interpretation :Rate 80, NSR, LAD, LAFB, septal infarct
[2021-10-13] MEDS ORDERED: DOXYCYCLINE HYCLATE 100 MG in DEXTROSE 5% 100 ML IV STA (05:52)
[2021-10-13] MEDS ORDERED: amLODIPine BESYLATE 5 MG TAB PO STA (05:59)
[2021-10-13] MEDS ORDERED: GABAPENTIN 800 MG TAB PO STA (06:18)
[2021-10-13] MEDS ORDERED: XOPENEX/ATROVENT 1.25mg/0.5MG NEB COMBO NEB STA (06:19)
[2021-10-13] MEDS ORDERED: LEVALBUTEROL 1.25MG/0.5ML NEB INH STA (06:19)
[2021-10-13] MEDS ORDERED: IPRATROPIUM BROMIDE NEB SOLN 0.02% 2.5 ML VIAL INH STA (06:19)
[2021-10-13] MEDS ORDERED: MULTI-VITAMIN INFUSION 10 ML, THIAMINE HCL 100 MG, FOLIC ACID 1 MG in SODIUM CHLORIDE 0... IV STA (06:20)
[2021-10-13] MEDS ORDERED: ACETAMINOPHEN 325 MG TAB PO STA (06:20)
[2021-10-13] MEDS ORDERED: LORazepam 2 MG/1 ML VIAL IV STA (06:29)
[2021-10-13] MEDS ORDERED: OPTIRAY 300 500mL IV ONE (06:38)
[2021-10-13] MEDS ORDERED: MAGNESIUM SULFATE / D5W 1 GM/100 ML BAG IV SCH (07:45)
[2021-10-13 07:54] LABS: Estimated Average Glucose 117 mg/dl; Hemoglobin A1C 5.7 % (4.5-5.6)
[2021-10-13] MEDS ORDERED: LORazepam 0.5 MG in SYRINGE 0.25 ML IV PRN (08:18)
[2021-10-13] MEDS ORDERED: Ativan IV Alcohol Withdrawal--Active Protocol IV PRN (08:18)
[2021-10-13] MEDS ORDERED: LORazepam 1 MG in SYRINGE 0.5 ML IV PRN (08:18)
[2021-10-13] MEDS ORDERED: LORazepam 1.5 MG in SYRINGE 0.75 ML IV PRN (08:18)
[2021-10-13] MEDS ORDERED: GABAPENTIN 800MG ALCOHOL WITHDRAWAL LOAD PO STA (08:18)
[2021-10-13] MEDS ORDERED: ACETAMINOPHEN 325 MG TAB PO PRN (08:18)
[2021-10-13] MEDS ORDERED: PROMETHAZINE HCL 6.25 MG in SODIUM CHLORIDE 0.9% 50 ML IV PRN (08:18)
--- NOTE | 2021-10-13 08:31 | CT Scan Report ---
CHEST CTA for PULMONARY ARTERIES CT DOSE: 280.26 mGy.cm HISTORY: Left-sided chest pain. TECHNIQUE: Multiaxial CT images of the chest were performed following the intravenous administration of contrast to evaluate the pulmonary arteries. Maximal intensity projection images were also obtaine d. A dose lowering technique was utilized adhering to the principles of ALARA. COMPARISON STUDY: Chest CTA 06/22/2016. FINDINGS: The visualized liver, spleen, and adrenal glands are unremarkable. No pleural or pericardia l effusions. No mediastinal or hilar lymphadenopathy. The thyroid gland enhances normally. Normal taisha iber esophagus. The heart is normal in size. Old, healed left-sided rib fractures. Normal caliber tho racic aorta with no evidence for dissection. Mild calcified plaque within the coronary arteries. Smal l fat-containing left-sided Bochdalek hernia. No filling defects within the pulmonary arteries to sug gest a pulmonary embolus. No pneumothorax. Mild emphysema. Small irregular densities within the lung apices which favor areas of scarring. However, the right apical nodular density is new from the prior study and measures 7 mm. The left apical density has also slightly progressed and measures [address] able 3 mm subpleural nodule within the right upper lobe on image [id number]. This is likely benign. Tree-in- bud nodular opacities seen within the base of the right middle lobe and right lower lobe. There are c entral bronchial wall thickening with a few partially opacified bronchi. IMPRESSION: 1. No evidence for pulmonary embolus. 2. Emphysema. 3. Tree-in-bud nodular opacities within the right lung base with a few thickened and partially opacif ied bronchi. Findings favor a mild infectious bronchiolitis. 4. Biapical nodular/irregular densities as described above which have progressed in the interval. Thi s may represent pleural-parenchymal scarring. However, [address] follow-up recommended to ensu re stability and to exclude the possibility of a pulmonary lesion. ACT 112: Positive. There are findings on this exam that require communication between the performing entity and the patient following Patient Test Result Information Act ([place] Act 112) guidelines. Electronically signed by: Reinaldo Snyder M.D. 10/13/2021 8:29 AM
--- NOTE | 2021-10-13 08:45 | XRay Report ---
XR chest 1V portable HISTORY: Atypical Chest Pain COMPARISON: Chest 07/16/2016. FINDINGS: Emphysema. No pneumothorax. No pleural effusions. The heart is normal in size. There is mil d central bronchial wall thickening. No focal lung consolidations. No evidence for pulmonary edema. M ildly tortuous thoracic aorta. IMPRESSION: 1. Emphysema and mild central bronchial wall thickening/bronchitis. 2. No focal lung consolidations. ACT 112: Negative or not required by law. Electronically signed by: Reinaldo Snyder M.D. 10/13/2021 8:44 AM
[2021-10-13] MEDS: MAGNESIUM SULFATE / D5W 1 GM/100 ML BAG IV SCH ×3 (08:46→14:05)
[2021-10-13] MEDS ORDERED: XOPENEX/ATROVENT 1.25mg/0.5MG NEB COMBO NEB SCH (13:00)
[2021-10-13] MEDS: LEVALBUTEROL 1.25MG/0.5ML NEB INH SCH ×2 (13:14→19:18)
[2021-10-13] MEDS: IPRATROPIUM BROMIDE NEB SOLN 0.02% 2.5 ML VIAL INH SCH ×2 (13:14→19:18)
[2021-10-13] MEDS: GABAPENTIN 400 MG CAP PO SCH ×2 (13:23→17:51)
[2021-10-13] MEDS: HEPARIN SOD 5,000 UNIT/0.5 ML VIAL SQ SCH ×2 (13:24→20:23)
--- NOTE | 2021-10-13 15:59 | Electrocardiogram Report ---
Test Reason : Blood Pressure : / mmHG Vent. Rate : 082 BPM Atrial Rate : 082 BPM P-R Int : 134 ms QRS Dur : 082 ms QT Int : 374 ms P-R-T Axes : -24 -56 -15 degrees QTc Int : 436 ms Poor data quality, interpretation may be adversely affected Normal sinus rhythm Left axis deviation Anteroseptal infarct (cited on or before 25-JUN-2016) Abnormal ECG When compared with ECG of 16-JUL-2016 16:21, No significant change was found Confirmed by Michele Carcamo ([id number]) on 10/13/2021 3:59:16 PM Referred By: Confirmed By:Michele Carcamo
--- NOTE | 2021-10-13 17:29 | Communication Note ---
Date of Service: October 13, 2021 Seen and examined at bedside. Admitted earlier this morning for COPD exacerbation and bronchitis. Continues to smoke. Feels much better since admission. Saturating well in room air, not dyspneic. Cachectic, sitting in bed in room air, AAO, chest clear without wheezes, heart sounds normal, abd benign, no LE edema. Labs, imaging, meds reviewed. Continue prednisone, nebs, doxy, follow sputum clx results. States he continues to smoke 1 ppd- counseled to quit. States he drinks vodka daily- has tremors- on AWSS protocol with gabapentin taper- recommended to cut down drinking. Also does not use any inhalers for COPD- he will need maintenance inhaler at discharge. Will need PT eval prior to discharge. See H and P note for details of presentation.
[2021-10-13] MEDS: DOXYCYCLINE HYCLATE 100 MG CAP PO SCH (20:23)
[2021-10-14] MEDS: LEVALBUTEROL 1.25MG/0.5ML NEB INH SCH ×2 (00:12→06:58)
[2021-10-14] MEDS: IPRATROPIUM BROMIDE NEB SOLN 0.02% 2.5 ML VIAL INH SCH ×2 (00:13→06:58)
[2021-10-14] MEDS: HEPARIN SOD 5,000 UNIT/0.5 ML VIAL SQ SCH (05:24)
[2021-10-14] MEDS ORDERED: GABAPENTIN 400 MG CAP PO SCH (06:30)
[2021-10-14 06:44] LABS: Albumin Globulin Ratio 1.6 (0.9-2); Albumin Level 3.9 gm/dl (3.4-5.0); BUN Creatinine Ratio 26.6 (10-20); Calcium 8.8 mg/dl (8.5-10.1); Creatinine Clr Calc Pharmacy 83.5 ml/min; Est GFR (African American) 121.6 ml/min; Est GFR (Non-African American) 104.9 ml/min; Globulin 2.4 gm/dl (2.5-4.0); Magnesium 2.1 mg/dl (1.7-2.4); Phosphorus 1.3 mg/dl (2.5-4.9); Potassium 3.8 mmol/L (3.5-5.1); Total Protein 6.3 gm/dl (6.0-8.3)
[2021-10-14] MEDS ORDERED: LEVALBUTEROL HCL 1.25 MG/3 ML NEB ONE ×2 (06:54→13:17)
[2021-10-14 07:10] LABS: Hemoglobin 12.7 g/dl (14.0-18.0); Mean Corpuscular Hemoglobin 36.1 pg (25.0-34.0); Mean Corpuscular Hgb Conc 36.3 g/dL (32.0-36.0); Mean Corpuscular Volume 99.4 fL (80.0-100.0); Mean Platelet Volume 11.3 fL (9.4-12.4); Platelet Count 133 K/uL (130-400); RDW Coefficient of Variation 13.9 % (11.5-14.5); Red Blood Count 3.52 M/uL (4.63-6.08); White Blood Count 9.87 K/ul (4.8-10.8)
[2021-10-14 07:37] LABS: Basophils # (auto) 0.01 K/uL (0-0.2); Basophils % (auto) 0.1 %; Immature Granulocytes # (auto) 0.05 K/uL (0.00-0.02); Immature Granulocytes % (auto) 0.5 %; Lymphocytes # (auto) 0.36 K/uL (1.2-3.4); Lymphocytes % (auto) 3.6 %; Monocytes # (auto) 1.38 K/uL (0.24-0.82); Neutrophils # (auto) 8.07 K/uL (1.4-6.5); Neutrophils % (auto) 81.8 %; Target Cells 1+
[2021-10-14] MEDS: DOXYCYCLINE HYCLATE 100 MG CAP PO SCH (08:27)
[2021-10-14] MEDS ORDERED: FOLIC ACID 1 MG TAB PO SCH (09:00)
[2021-10-14] MEDS ORDERED: amLODIPine BESYLATE 5 MG TAB PO SCH ×2 (09:00)
[2021-10-14] MEDS ORDERED: predniSONE 20 MG TAB PO SCH (09:00)
[2021-10-14] MEDS ORDERED: THIAMINE HCL 100 MG TAB PO SCH (09:00)
[2021-10-14] MEDS ORDERED: POT PHOSPHATE MONOBASIC W/ SOD TAB PO ONE (12:21)
--- NOTE | 2021-10-14 17:58 | Discharge Summary ---
Date of Service October 14, 2021 Admission HPI Per Admitting Provider History obtained from patient and records. Medical history significant for COPD, ongoing tobacco abuse; hypertension, PVD, history of torsades de pointes, possibly alcohol abuse, history of medication noncompliance Last confinement 2016 for for C. difficile colitis. Patient discharged on vancomycin course. 2 days history of worsening junky cough symptoms productive of whitish-yellow sputum. Pleuritic chest pain with worsening shortness of breath. No known sick contacts. Patient has not received COVID-19 vaccination. Patient received Solu-Medrol and Ceftriaxone at the ER for possible COPD exacerbation. Admission Exam Per Admitting Provider GENERAL: uncomfortable, underweight, anxious, tremulous, respiratory distress SKIN: Normal color, warm HEENT: [place] palpebral conjunctivae, no ptosis, dry buccal mucosa NECK : Supple, no tenderness CHEST : Decreased breath sounds, expiratory wheezes, no tenderness HEART : RRR, no obvious murmurs ABDOMEN: no distention, nontender EXTREMITIES : No LE swelling/tenderness, no other conspicuous deformities noted NEUROLOGIC : Coherent, no facial asymmetry, tremulous, gait and stance not assessed Principal Diagnosis COPD excerebration Alcohol abuse Discharge Exam GENERAL: uncomfortable, underweight, anxious, tremulous, respiratory distress SKIN: Normal color, warm HEENT: [place] palpebral conjunctivae, no ptosis, dry buccal mucosa NECK : Supple, no tenderness CHEST : Decreased breath sounds, expiratory wheezes, no tenderness HEART : RRR, no obvious murmurs ABDOMEN: no distention, nontender EXTREMITIES : No LE swelling/tenderness, no other conspicuous deformities noted NEUROLOGIC : Coherent, no facial asymmetry, tremulous, gait and stance not assessed Discharge Data Allergies Allergy/AdvReac Type Severity Reaction Status Date / Time No Known Allergies Allergy Unverified 06/22/16 22:11 Consultations 10/13/21 05:43 ED Decision to Admit Stat Ordered Studies 10/13/21 06:20 CT angio chest PE protocol Stat Hospital Course (1) COPD exacerbation: (2) Tobacco use disorder: (3) Alcohol abuse: Plan Patient is a 61-year-old male with past medical history of COPD, ongoing tobacco abuse, alcohol abuse, hypertension presents to the ED with shortness of breath, cough and increased sputum production. Patient was found to have COPD exacerbation. Patient was started on bronchodilators, steroids and antibiotics. Patient improved over the course of the treatment in the hospital. He was also started on amlodipine for high blood pressure. On discharge, patient was given course of prednisone and doxycycline. He was also prescribed amlodipine 5 mg once a day tablet. He was also prescribed inhalers and was instructed to follow-up with PCP. Total Time Total Time Spent Total Time Spent (In Minutes): 35 Total Time Includes: Examination of the Patient, Discharge Planning, Medication Reconciliation, Communication With Other Providers and Other Discharge Plan Discharge Items Patient Disposition: Home - Self-Care Reason For Visit: SEPSIS, COPD EXACERBATION Discharge Diagnosis: COPD exacerbation: Alcohol withdrawal Activity: Resume your previous activity Non-emergency contact: Primary Care Provider Call non-emergency contact if: you have any medication questions Follow-up/Referrals: Macario Rajput MD [Primary Care Provider] - (Date & Time 10/21/2021 3:00 PM Provider Macario Rajput MD Department Family Medicine [facility] ) Diet: Regular and Carb Consistent or DM2 Addtl Attending Provider Instructions: Please follow-up with her primary care doctor in 1 week. Please obtain referral for pulmonology from your PCP. You are started on amlodipine 5 mg tablet once daily for high blood pressure. Please check your blood pressure 2 times a day at home. Discussed with your primary care doctor regarding long-term care for hypertension. You were also prescribed doxycycline 100 mg twice daily for 4 days. You are also prescribed prednisone 20 mg 2 tablets once daily for next 4 days.. You were also prescribed inhalers Advair Diskus and to Tiotorpium for your COPD. Please use them as instructed. Pending Studies at Discharge: No Stand-Alone Forms: My [facility], Smoking Cessation Medications and DC Order Prescriptions: New doxycycline hyclate 100 mg Capsule 100 mg PO BID 4 Days Qty: 8 0RF prednisone 20 mg Tablet 40 mg PO DAILY 4 Days Qty: 8 0RF amlodipine [Norvasc] 5 mg Tablet 5 mg PO QAM 30 Days Qty: 30 0RF folic acid 1 mg Tablet 1 mg PO QAM 14 Days Qty: 14 0RF thiamine HCl (vitamin B1) 250 mg tablet 250 mg PO DAILY Qty: 14 0RF fluticasone propion-salmeterol [Advair Diskus] 100-50 mcg/dose blister with device 1 inh inhalation DAILY Qty: 60 0RF tiotropium bromide 18 mcg capsule, w/inhalation device 1 cap inhalation DAILY Qty: 2 0RF Rx Instructions: puncture 1 cap using device; one dose = 2 inhalations Continued Albuterol (Ventolin Hfa) 60 PUFFS/5,400 MCG AEROSOL,SOLN 90 mcg Inhalation Q4H 30 Days Qty: 1 2RF Discharge Orders: Discharge Order (Routine); Ordered 10/14/21 Ordered By: Gage Nguyen Admission Data Admit Date/Time: 10/13/21 06:23 Attending Provider: Gage Nguyen Admit Provider: Reji Palencia Primary Care Provider: Macario Rajput Other Providers: Mak Altman Other Interventions: Discharge Summary Assessment (RN) Last Done: 10/14/21 12:51
[2021-10-15] MEDS ORDERED: GABAPENTIN 400 MG CAP PO SCH (10:30)
[2021-10-16] MEDS ORDERED: GABAPENTIN 400 MG CAP PO SCH (22:30)
== END 2021-10-14 13:25 | disposition home or self-care (01) ==
LOC: ED 04:49 → INTOOBSV 06:23 → 2N 06:23 → SUATTDRO 06:23 → 2N 07:36

== ENCOUNTER 2022-01-13 08:17 | Observation (INO) ==
[2022-01-13] MEDS ORDERED: KETOROLAC TROMETHAMINE 15 MG/ML VIAL IV ONE (08:36)
--- NOTE | 2022-01-13 08:36 | Emergency Department Note ---
Impression & Plan COPD exacerbation, Respiratory failure, acute, Hypoxia, Hypertension ED Provider Note NAME: JOSELITO YUAN AGE: 61 SEX: M : 1960 ARRIVES VIA: Ambulance INFORMANT: Patient ED PROVIDER(S): Manjit Garaz DO CHIEF COMPLAINT: shortness of breath HPI: Patient is a 61-year-old male with a past medical history of alcohol abuse, respiratory failure, hypertension, atherosclerosis of lower extremities, smoker who presents to the ER for right-sided pleuritic chest pain. This started last night around 11:49 AM while working. Pain is only present with breathing. He describes as a dull ache right mid chest going through to his back. Feels like his previous bout of pneumonia a month ago. Denies any headache or change in vision. Pain is about a 4-5 out of 10. If he is not breathing he would not have any pain. He was brought in by EMS. He was given neb treatments. No belly pain. He did admit to 1 episode of vomiting after coughing. Coughing did start last night as well as a little bit of a runny nose. Denies any dysuria, urgency, or frequency. No swelling of the calves. No other exacerbating or remitting factors. Did not receive steroids prior to arrival. ROS: See above HPI for pertinent positives & negatives. A total of 10 systems reviewed and were otherwise negative. PAST MEDICAL HISTORY:See Below PAST SURGICAL HISTORY:See Below FAMILY HISTORY:See Below SOCIAL HISTORY:See Below HOME MEDICATIONS:See Below ALLERGIES:See Below VITALS:See Below PHYSICAL EXAMINATION: GENERAL: Sitting up in bed, alert, chronically ill-appearing, disheveled, cachectic EYE EXAM: normal conjunctiva. PERRL and EOM's grossly intact. OROPHARYNX: mucous membranes are moist NECK: supple, no nuchal rigidity, no adenopathy, non-tender LUNGS: Wheezing bilaterally. Normal chest wall mechanics HEART: no murmurs, S1 normal and S2 normal ABDOMEN: abdomen soft, non-tender, normo-active bowel sounds, no masses, no rebound or guarding. BACK: Back is symmetrical on inspection and there is no deformity, no midline tenderness, no CVA tenderness. UPPER EXTREMITIES: upper extremities are grossly normal. LOWER EXTREMITIES: Cervical bilateral NEURO EXAM: Normal sensorium, cranial nerves II-XII grossly intact, normal speech, no gross weakness of arms, no gross weakness of legs. MEDICAL DECISION MAKING: Patient is a 61-year-old male who presents ER for upper respiratory symptoms. IV was established blood work obtained. Labs show no significant leukocytosis or anemia. D-dimer was elevated. BMP along with LFTs bilirubin was unremarkable. Troponin was negative. Lipase normal. Alcohol as well as flu and COVID were negative. CTA of the chest was performed after unremarkable chest x-ray and a positive dimer. This was negative. Patient was ambulated dropped his pulse ox 86%. He was given nebs and steroids while here. Updated bedside and admitted for further work-up of his likely COPD exacerbation. Triage Nursing notes reviewed. Limited review of prior medical records performed Vital Signs: reviewed and remarkable for no significant abnormalities Differential diagnosis: Differential diagnoses includes but is not limited to pneumonia, bronchitis, COPD/Asthma exacerbation, pneumothorax, pulmonary embolism, congestive heart failure, acute coronary syndrome ER treatment provided: See below Diagnostics interpreted by me: ECG: Sinus rhythm rate 76 Normal axis Septal Q waves No PVC QTC 436 No significant change from previous Cardiac Monitoring: An order was placed for continuous cardiac monitoring. The monitor shows a rate of 70 with sinus rhythm. Laboratory studies: As stated above and show below. Imaging studies: CT angio the chest was negative Portable AP upright 1 view the chest was unremarkable Consultation(s): discussed with hospitalist for further evaluation Procedures: none Critical Care: None Past Med/Surg History Medical History Atherosclerosis of lower extremity with intermittent claudication "right leg" COPD (chronic obstructive pulmonary disease) History of torsades de pointes Hypertension Tobacco use disorder Surgical History History of dental surgery S/P tonsillectomy and adenoidectomy Family History Mother Diabetes Heart disease Social History Smoking Status: Heavy tobacco smoker Tobacco Type: Cigarettes Cigarettes Per Day: 1 ppd; Hx Alcohol Use: Yes Alcohol type: beer and hard liquor Hx Substance Use: No Preferred Language: Turkmen Communication Ability: Effective Lump Roller Required: No Beliefs That Will Affect Care: None Current Living Situation: Alone Feels Safe at Home: Yes Safety Concerns: Feels Safe At This Time Assistive Devices: Cane, Denture - Upper, Denture - Lower and Glasses Assistive Devices Comment: patient states he doesnt use cane now that he's back to work. Allergies Allergies Allergy/AdvReac Type Severity Reaction Status Date / Time No Known Allergies Allergy Unverified 01/13/22 12:48 Home Meds Home Medications Medication Instructions Recorded Confirmed albuterol sulfate 90 mcg/actuation 2 puff inhalation Q6H PRN 01/13/22 01/13/22 aerosol inhaler Shortness Of Breath amlodipine 5 mg tablet 5 mg PO QAM 01/13/22 01/13/22 Previous Rx's Medication Instructions Recorded fluticasone 100 mcg-salmeterol 50 1 inh inhalation DAILY #60 ea 10/14/21 mcg/dose blistr powdr for inhalation (Advair Diskus) tiotropium bromide 18 mcg capsule 1 cap inhalation DAILY #2 10/14/21 with inhalation device inhalations Results & Data (ED) Vital Signs Vital Signs - 24 hr 01/13/22 08:21 01/13/22 08:21 01/13/22 08:21 Temperature 36.5 C Temperature Source Oral Pulse Rate 80 Pulse Rate [Apical] Pulse Rate [Exercises] Pulse Rhythm Regular Pulse Rhythm [Apical] Pulse Strength Normal Pulse Strength [Apical] Respiratory Rate 18 Respiratory Rate [Exercises] Respiratory Effort / Characteristics Non-Labored Blood Pressure 140/94 Blood Pressure [Right Arm] Blood Pressure Mean 109 Blood Pressure Mean [Right Arm] Pulse Oximetry 98 93 Pulse Oximetry [Exercises] Oxygen Delivery Method Room Air Room Air Sepsis Recent Fever Within 48 Hours No Sepsis New/Unexplained Change in Mental Status N/A Sepsis Action Taken by Nursing No Action Required 01/13/22 08:21 01/13/22 08:21 01/13/22 10:56 Temperature 36.5 C Temperature Source Oral Pulse Rate 89 Pulse Rate [Apical] 78 Pulse Rate [Exercises] 101 H Pulse Rhythm Pulse Rhythm [Apical] Regular Pulse Strength Pulse Strength [Apical] Normal Respiratory Rate 18 18 Respiratory Rate [Exercises] 28 H Respiratory Effort / Characteristics Blood Pressure Blood Pressure [Right Arm] 140/94 Blood Pressure Mean Blood Pressure Mean [Right Arm] 109 Pulse Oximetry 93 93 Pulse Oximetry [Exercises] 86 L Oxygen Delivery Method Room Air Room Air Room Air Sepsis Recent Fever Within 48 Hours Sepsis New/Unexplained Change in Mental Status Sepsis Action Taken by Nursing Laboratory Data Result diagrams: 01/13/22 08:40 01/13/22 08:40 Lab Results 01/13/22 01/13/22 01/13/22 Range/Units 08:40 08:40 08:40 WBC 9.53 (4.8-10.8) K/ul RBC 3.76 L (4.63-6.08) M/uL Hgb 13.3 L (14.0-18.0) g/dl Hct 37.1 L (40.1-51.0) % MCV 98.7 (80.0-100.0) fL MCH 35.4 H (25.0-34.0) pg MCHC 35.8 (32.0-36.0) g/dL RDW Std Deviation 53.0 H (36.4-46.3) fL RDW Coeff of Antony 14.4 (11.5-14.5) % Plt Count 175 (130-400) K/uL MPV 10.8 (9.4-12.4) fL Immature Gran % (Auto) 0.4 % Neut % (Auto) 75.3 % Lymph % (Auto) 6.9 % Steele % (Auto) 16.9 % Eos % (Auto) 0.0 % Baso % (Auto) 0.5 % Neut # (Auto) 7.17 H (1.4-6.5) K/uL Lymph # (Auto) 0.66 L (1.2-3.4) K/uL Steele # (Auto) 1.61 H (0.24-0.82) K/uL Eos # (Auto) 0.00 (0-0.50) K/uL Baso # (Auto) 0.05 (0-0.2) K/uL Immature Gran # (Auto) 0.04 H (0.00-0.02) K/uL D-Dimer 2100 H* (0-500) ug/L FEU Sodium 139 (136-145) mmol/L Potassium 3.8 (3.5-5.1) mmol/L Chloride 96 L (98-107) mmol/L Carbon Dioxide 31 (21-32) mmol/L Anion Gap 12 H (3-11) BUN 14 (6-23) mg/dl Creatinine 0.61 (0.6-1.4) mg/dl Est Cr Clr Drug Dosing 87.9 ml/min Est GFR ( Amer) 124.0 ml/min Est GFR (Non-Af Amer) 107.0 ml/min BUN/Creatinine Ratio 23.0 H (10-20) Glucose 122 H (70-99(Fasting)) mg/dl Calcium 10.0 (8.5-10.1) mg/dl Phosphorus (2.5-4.9) mg/dl Magnesium (1.7-2.4) mg/dl Total Bilirubin 0.8 (0.2-1.0) mg/dl AST 77 H (13-39) U/L ALT 36 (7-52) U/L Alkaline Phosphatase 75 (34-104) U/L Troponin I High Sens 9.9 D (0-20) pg/ml Total Protein 7.3 (6.0-8.3) gm/dl Albumin 4.6 (3.4-5.0) gm/dl Globulin 2.7 (2.5-4.0) gm/dl Albumin/Globulin Ratio 1.7 (0.9-2) Lipase 55 (11-82) U/L Influ A Molecular Assay (Negative) Influ B Molecular Assay (Negative) SARS-CoV-2, RNA, NAAT (NEGATIVE) 01/13/22 01/13/22 01/13/22 Range/Units 08:40 08:40 08:40 WBC (4.8-10.8) K/ul RBC (4.63-6.08) M/uL Hgb (14.0-18.0) g/dl Hct (40.1-51.0) % MCV (80.0-100.0) fL MCH (25.0-34.0) pg MCHC (32.0-36.0) g/dL RDW Std Deviation (36.4-46.3) fL RDW Coeff of Antony (11.5-14.5) % Plt Count (130-400) K/uL MPV (9.4-12.4) fL Immature Gran % (Auto) % Neut % (Auto) % Lymph % (Auto) % Steele % (Auto) % Eos % (Auto) % Baso % (Auto) % Neut # (Auto) (1.4-6.5) K/uL Lymph # (Auto) (1.2-3.4) K/uL Steele # (Auto) (0.24-0.82) K/uL Eos # (Auto) (0-0.50) K/uL Baso # (Auto) (0-0.2) K/uL Immature Gran # (Auto) (0.00-0.02) K/uL D-Dimer (0-500) ug/L FEU Sodium (136-145) mmol/L Potassium (3.5-5.1) mmol/L Chloride (98-107) mmol/L Carbon Dioxide (21-32) mmol/L Anion Gap (3-11) BUN (6-23) mg/dl Creatinine (0.6-1.4) mg/dl Est Cr Clr Drug Dosing ml/min Est GFR ( Amer) ml/min Est GFR (Non-Af Amer) ml/min BUN/Creatinine Ratio (10-20) Glucose (70-99(Fasting)) mg/dl Calcium (8.5-10.1) mg/dl Phosphorus 4.0 (2.5-4.9) mg/dl Magnesium 1.1 L (1.7-2.4) mg/dl Total Bilirubin (0.2-1.0) mg/dl AST (13-39) U/L ALT (7-52) U/L Alkaline Phosphatase (34-104) U/L Troponin I High Sens (0-20) pg/ml Total Protein (6.0-8.3) gm/dl Albumin (3.4-5.0) gm/dl Globulin (2.5-4.0) gm/dl Albumin/Globulin Ratio (0.9-2) Lipase (11-82) U/L Influ A Molecular Assay Negative (Negative) Influ B Molecular Assay Negative (Negative) SARS-CoV-2, RNA, NAAT NEGATIVE (NEGATIVE) Administered Medications Azithromycin (Azithromycin 250 Mg Tab) [facility] Stop: 01/20/22 12:29 Last Admin: 01/13/22 13:50 Dose: 500 mg Documented By: [facility] Folic Acid (Folic Acid 1 Mg Tab) 1 mg PO QA EMMA Stop: 02/12/22 12:59 Last Admin: 01/13/22 13:51 Dose: 1 mg Documented By: CAROLYN Magnesium Sulfate/Dextrose (Magnesium Sulfate / D5w) 1 gm in 100 mls @ 50 mls/hr IV Q2H STA Stop: 01/13/22 15:11 Last Admin: 01/13/22 14:07 Dose: 50 mls/hr Documented By: CAROLYN Thiamine HCl (Thiamine Hcl 100 Mg Tab) 100 mg PO QAM EMMA Stop: 02/12/22 12:59 Last Admin: 01/13/22 13:51 Dose: 100 mg Documented By: CAROLYN Discontinued Medications Ioversol (Optiray 320 500ml) 120 ml IV ONCE ONE Stop: 01/13/22 09:43 Last Admin: 01/13/22 09:36 Dose: 120 ml Documented By: SAMIRA Ketorolac Tromethamine (Ketorolac Tromethamine 15 Mg/Ml Vial) 10 mg IV NOW ONE Stop: 01/13/22 08:37 Last Admin: 01/13/22 08:53 Dose: 10 mg Documented By: EMMANUEL Lorazepam (Lorazepam 1 Mg Tab) 1 mg PO ONE PRN; Protocol PRN Reason: EtoH Withdrawal AWSS 6,7,8,9,10 Last Admin: 01/13/22 14:22 Dose: 1 mg Documented By: EMMANUEL Methylprednisolone (Methylprednisolone 40 Mg/Ml Vial) 40 mg IV NOW STA Stop: 01/13/22 08:37 Last Admin: 01/13/22 08:53 Dose: 40 mg Documented By: EMMANUEL Imaging Data Radiologist's Impression: Chest X-Ray 01/13/22 08:21 SINGLE VIEW CHEST CLINICAL HISTORY: Atypical chest pain. FINDINGS: An AP, portable, upright chest radiograph is compared to chest x-ray and chest CT dated 10/13/2021. The examination is degraded by portable technique and apical abnormality positioning. The cardiomediastinal silhouette is unremarkable noting atherosclerotic calcification of the thoracic aorta. Enlargement of the central pulmonary arteries suggest pulmonary artery hypertension. Emphysema and chronic interstitial thickening is similar to previous. No airspace consolidation or large pleural effusion is identified. No pneumothorax is seen. The skeletal structures appear osteopenic. There are healed left-sided rib fractures. IMPRESSION: Emphysematous changes with no acute cardiopulmonary abnormality identified. ACT 112: Negative or not required by law. Electronically signed by: Fran Mccormick M.D. 01/13/2022 8:43 AM Chest CTA 01/13/22 09:24 CT ANGIOGRAM OF THE CHEST CLINICAL HISTORY: Pleuritic chest pain. Dyspnea. Elevated D dimer. COMPARISON STUDY: Chest x-ray dated 01/13/2022. Chest CT dated 10/13/2021. TECHNIQUE: Following the IV administration of 120 cc of Optiray 320, CT angiogram of the chest was performed from the upper abdomen to the thoracic inlet utilizing the pulmonary embolus protocol. Images are reviewed in the axial, sagittal, and coronal planes. 3-D MIPS images are created and assessed. IV contrast was administered without complication. A dose lowering technique was utilized adhering to the principles of ALARA. CT DOSE: 273.42 mGy.cm FINDINGS: Thyroid: Imaged portions of the thyroid gland are normal in size and attenuation. Thoracic aorta: There is atherosclerotic calcification of the thoracic aorta, which is normal in caliber and demonstrates bovine variant arch anatomy. No dissection is seen. Pulmonary vasculature: The pulmonary trunk is normal in caliber. There are no filling defects identified in main, lobar, or segmental pulmonary branches to suggest pulmonary embolus. Heart: The heart is normal in size and without pericardial effusion. There are coronary artery calcifications. Lungs and pleural spaces: There is [id number] emphysema. Apical scarring is noted. No air space consolidation typical for pneumonia or pleural effusion is identified. Scarring/atelectasis is noted at the lung bases. The trachea and central airways are clear. Diffuse peribronchial thickening is observed. Minimal tree-in-bud airspace opacities are again seen in the right lower lung. A fat- containing Bochdalek hernia is seen on the left. Mediastinum: There is no mediastinal lymphadenopathy. Jeana: Clear. Axillae: There is no axillary lymphadenopathy. Upper abdomen: Partially visualized upper abdominal viscera is within normal limits. Skeletal structures: The skeletal structures appear osteopenic. Mild deg enerative change is noted in lower cervical spine and at the thoracolumbar junction. No lytic or blastic bony lesions are seen. There are chronic left- sided rib fractures. IMPRESSION: 1. There is no evidence of pulmonary embolus in the main, lobar, or segmental pulmonary arteries. 2. Emphysema. 3. There is no airspace consolidation typical for pneumonia or pleural effusion. 4. Diffuse peribronchial thickening is again noted and there are minimal tree-i n-bud opacities at the right lung base. These findings suggest bronchitis/reactive airway disease. Clinical correlation will be required. 5. Additional findings as above. ACT 112: Negative or not required by law. Electronically signed by: Fran Mccormick M.D. 01/13/2022 9:51 AM Discharge Plan Visit Data Chief Complaint: Chest Pain Stated Complaint: CHEST PAIN ED Provider: Manjit Garza Discharge Problem: COPD exacerbation, Respiratory failure, acute, Hypoxia, Hypertension Discharge Instructions Interventions: ED Discharge Assessment Last Done: 01/13/22 13:54
--- NOTE | 2022-01-13 08:45 | XRay Report ---
SINGLE VIEW CHEST CLINICAL HISTORY: Atypical chest pain. FINDINGS: An AP, portable, upright chest radiograph is compared to chest x-ray and chest CT dated 09/16. The examination is degraded by portable technique and apical abnormality positioning. The car diomediastinal silhouette is unremarkable noting atherosclerotic calcification of the thoracic aorta. Enlargement of the central pulmonary arteries suggest pulmonary artery hypertension. Emphysema and c hronic interstitial thickening is similar to previous. No airspace consolidation or large pleural eff usion is identified. No pneumothorax is seen. The skeletal structures appear osteopenic. There are he aled left-sided rib fractures. IMPRESSION: Emphysematous changes with no acute cardiopulmonary abnormality identified. ACT 112: Negative or not required by law. Electronically signed by: Fran Mccormick M.D. 01/13/2022 8:43 AM
[2022-01-13 08:59] LABS: Basophils # (auto) 0.05 K/uL (0-0.2); Basophils % (auto) 0.5 %; Hematocrit (blood only) 37.1 % (40.1-51.0); Hemoglobin 13.3 g/dl (14.0-18.0); Immature Granulocytes # (auto) 0.04 K/uL (0.00-0.02); Immature Granulocytes % (auto) 0.4 %; Lymphocytes # (auto) 0.66 K/uL (1.2-3.4); Lymphocytes % (auto) 6.9 %; Mean Corpuscular Hemoglobin 35.4 pg (25.0-34.0); Mean Corpuscular Hgb Conc 35.8 g/dL (32.0-36.0); Mean Corpuscular Volume 98.7 fL (80.0-100.0); Mean Platelet Volume 10.8 fL (9.4-12.4); Monocytes # (auto) 1.61 K/uL (0.24-0.82); Monocytes % (auto) 16.9 %; Neutrophils # (auto) 7.17 K/uL (1.4-6.5); Neutrophils % (auto) 75.3 %; Platelet Count 175 K/uL (130-400); RDW Coefficient of Variation 14.4 % (11.5-14.5); Red Blood Count 3.76 M/uL (4.63-6.08); White Blood Count 9.53 K/ul (4.8-10.8)
[2022-01-13 09:22] LABS: Albumin Globulin Ratio 1.7 (0.9-2); Albumin Level 4.6 gm/dl (3.4-5.0); Bilirubin,Total 0.8 mg/dl (0.2-1.0); Creatinine Clr Calc Pharmacy 87.9 ml/min; Globulin 2.7 gm/dl (2.5-4.0); Potassium 3.8 mmol/L (3.5-5.1); Total Protein 7.3 gm/dl (6.0-8.3)
[2022-01-13 09:25] LABS: D Dimer 2100 ug/L FEU (0-500); Troponin I High Sensitivity 9.9 pg/ml (0-20)
[2022-01-13] MEDS ORDERED: OPTIRAY 320 500ml IV ONE (09:42)
--- NOTE | 2022-01-13 09:52 | CT Scan Report ---
CT ANGIOGRAM OF THE CHEST CLINICAL HISTORY: Pleuritic chest pain. Dyspnea. Elevated D dimer. COMPARISON STUDY: Chest x-ray dated 01/13/2022. Chest CT dated 10/13/2021. TECHNIQUE: Following the IV administration of 120 cc of Optiray 320, CT angiogram of the chest was pe rformed from the upper abdomen to the thoracic inlet utilizing the pulmonary embolus protocol. Images are reviewed in the axial, sagittal, and coronal planes. 3-D MIPS images are created and assessed. I V contrast was administered without complication. A dose lowering technique was utilized adhering to the principles of ALARA. CT DOSE: 273.42 mGy.cm FINDINGS: Thyroid: Imaged portions of the thyroid gland are normal in size and attenuation. Thoracic aorta: There is atherosclerotic calcification of the thoracic aorta, which is normal in [place] bunny and demonstrates bovine variant arch anatomy. No dissection is seen. Pulmonary vasculature: The pulmonary trunk is normal in caliber. There are no filling defects identif ied in main, lobar, or segmental pulmonary branches to suggest pulmonary embolus. Heart: The heart is normal in size and without pericardial effusion. There are coronary artery calcif ications. Lungs and pleural spaces: There is [id number] emphysema. Apical scarring is noted. No air space consolidation typical for pneumonia or pleural effusion is identified. Scarring/atelectasis is noted at the lung bases. The trachea and central airways are clear. Diffuse peribronchial thickening is ob served. Minimal tree-in-bud airspace opacities are again seen in the right lower lung. A fat-containi ng Bochdalek hernia is seen on the left. Mediastinum: There is no mediastinal lymphadenopathy. Jeana: Clear. Axillae: There is no axillary lymphadenopathy. Upper abdomen: Partially visualized upper abdominal viscera is within normal limits. Skeletal structures: The skeletal structures appear osteopenic. Mild degenerative change is noted in lower cervical spine and at the thoracolumbar junction. No lytic or blastic bony lesions are seen. Th ere are chronic left-sided rib fractures. IMPRESSION: 1. There is no evidence of pulmonary embolus in the main, lobar, or segmental pulmonary arteries. 2. Emphysema. 3. There is no airspace consolidation typical for pneumonia or pleural effusion. 4. Diffuse peribronchial thickening is again noted and there are minimal tree-in-bud opacities at the right lung base. These findings suggest bronchitis/reactive airway disease. Clinical correlation birgit l be required. 5. Additional findings as above. ACT 112: Negative or not required by law. Electronically signed by: Fran Mccormick M.D. 01/13/2022 9:51 AM
[2022-01-13 10:17] LABS: Influenza A virus by PCR Negative (Negative); Influenza B virus by PCR Negative (Negative)
--- NOTE | 2022-01-13 11:27 | Electrocardiogram Report ---
Test Reason : Blood Pressure : / mmHG Vent. Rate : 076 BPM Atrial Rate : 076 BPM P-R Int : 130 ms QRS Dur : 084 ms QT Int : 388 ms P-R-T Axes : -02 -11 041 degrees QTc Int : 436 ms Poor data quality, interpretation may be adversely affected Normal sinus rhythm When compared with ECG of 13-OCT-2021 04:55, QRS axis Shifted right Confirmed by Gage Martinez ([id number] on 01/13/2022 11:27:11 AM Referred By: REFERRED SELF Confirmed By:Kan Martinez
--- NOTE | 2022-01-13 11:40 | History & Physical Report ---
Date of Service January 13, 2022 Assessment & Plan (1) COPD exacerbation: Plan: Pt presented with similar symptoms in September. Not on chronic oxygen therapy at home. Continues to smoke. Found to be hypoxic with ambulation in the ED so referred for admission. - Admit to PCU - Continue supplemental O2 - Continue steroids started in the ED - Add azithromycin - Scheduled DuoNebs with prn in between if needed (2) Hypoxia: Plan: See plan for #1 (3) Hypertension: Plan: Pt has not been taking the amlodipine prescribed at last admission - BP last night at work elevated - Resume amlodipine starting tomorrow (4) Tobacco use disorder: Plan: Pt declines nicotine patch while admitted (5) Alcohol abuse: Plan: Pt reports drinking "one glass" of vodka per day - Check EtOH level, urine tox - Gabapentin protocol with prn lorazepam - Check mag, phos and replete if needed - Add thiamine and folic acid Plan Pt seen and reviewed with attending physician, Dr. Santiago. Plan of care discussed and as outlined above. Code Status: Full code DVT Prophylaxis: Desean Zapata PA-C History of Present Illness Chief Complaint: Trouble breathing Primary Care Provider: Macario Rajput MD This is a 61 y/o male with PMH of COPD, tobacco abuse, alcohol abuse, HTN, and vascular claudication who presented to the ED this morning with abrupt onset last night of cough, pleuritic chest pain, shortness of breath and wheezing. Pt reports that he was at work, feeling at baseline, when he had the sudden onset of cough, productive of clear to white mucus, with associated difficulty breathing. He felt weak and shaking but denies fever or chills. He developed a runny nose and PND with vomiting associated with the drainage but denies nausea or diarrhea. No known sick contacts. Reports he received the flu vaccine this year but not the COVID vaccine. He ran out of his albuterol rescue inhaler but has been taking the Advair and Spiriva. He has not been taking the amlodipine prescribed in September as he says that it was not sent with this last round of refills. Someone took his BP at work last night and it was reportedly >200. He was admitted in September with similar symptoms, treated with steroids and antibiotics. He continues to smoke 1-1.5 PPD, more on the weekends, but declines a nicotine patch at present. He reports drinking "one glass" of vodka per day - denies prior history of alcohol withdrawal. Allergies Allergy/AdvReac Type Severity Reaction Status Date / Time No Known Allergies Allergy Unverified 01/13/22 12:48 Home Medications Medication Instructions Recorded Confirmed Type fluticasone 100 mcg-salmeterol 50 1 inh inhalation DAILY #60 ea 10/14/21 01/13/22 Rx mcg/dose blistr powdr for inhalation (Advair Diskus) tiotropium bromide 18 mcg capsule 1 cap inhalation DAILY #2 10/14/21 01/13/22 Rx with inhalation device inhalations albuterol sulfate 90 mcg/actuation 2 puff inhalation Q6H PRN 01/13/22 01/13/22 History aerosol inhaler Shortness Of Breath amlodipine 5 mg tablet 5 mg PO QAM 01/13/22 01/13/22 History Past Med/Surg History Medical History Atherosclerosis of lower extremity with intermittent claudication "right leg" COPD (chronic obstructive pulmonary disease) History of torsades de pointes Hypertension Tobacco use disorder Surgical History History of dental surgery S/P tonsillectomy and adenoidectomy Family History Mother Diabetes Heart disease Social History Smoking Status: Heavy tobacco smoker Tobacco Type: Cigarettes Cigarettes Per Day: 1 ppd; Hx Alcohol Use: Yes Alcohol type: beer and hard liquor Hx Substance Use: No Preferred Language: Ukrainian Communication Ability: Effective Stylist Apprentice Required: No Beliefs That Will Affect Care: None Current Living Situation: Alone Feels Safe at Home: Yes Safety Concerns: Feels Safe At This Time Assistive Devices: Cane, Denture - Upper, Denture - Lower and Glasses Assistive Devices Comment: patient states he doesnt use cane now that he's back to work. Review of Systems Review of Systems: All systems reviewed & are unremarkable except as noted in HPI & below Constitutional: + fatigue and + weakness; no fever, no chills and no sweats Eyes: no diplopia and no worsening vision Ear, Nose, Mouth, Throat: + nasal discharge and + post nasal drip; no nasal obstruction and no sore throat Respiratory: + cough, + chest congestion, + dyspnea and + wheezing; no hemoptysis Cardiovascular: + chest pain; no syncope and no edema Gastrointestinal: + abdominal pain and + vomiting; no nausea, no diarrhea/loose stools and no blood in stools Genitourinary: no dysuria or no hematuria Musculoskeletal: no myalgia and no muscle weakness Integumentary: no rash and no yellowing of the skin Neurologic: no headache(s) shakiness and tremulousness that started last night Physical Exam Constitutional: + cachectic and + disheveled; no acute distress Eyes: + anicteric sclerae Neck: trachea midline Respiratory: no respiratory distress and no labored breathing Auscultation: + diminished lung sounds coarse BS left > right, no wheezing at present Cardiovascular: Rate/Rhythm: regular rhythm and + tachycardic Vessels: posterior tibial pulses present and radial pulses present Extremities: no edema Gastrointestinal (Abdomen): Inspection/Auscultation: normal bowel sounds; abdomen not distended Percussion/Palpation: + abdomen tender (upper abdomen/lower chest) and abdomen soft Musculoskeletal: Head/Neck/Chest: no localized rib tenderness Skin: no jaundice Neurologic: moves all extremities; no focal motor deficits Motor/Sensory: + tremor (generalized tremulousness) Psychiatric: Orientation: alert and oriented x 3 Results & Data Results & Data ([facility]) Vital Signs (Past 12 Hours) Vital Signs Temp Pulse Pulse Pulse Resp Resp BP 01/13/22 10:56 101 H 28 H 01/13/22 08:21 89 18 01/13/22 08:21 36.5 C 78 18 01/13/22 08:21 01/13/22 08:21 36.5 C 80 18 140/94 BP Pulse Ox Pulse Ox O2 Del Method 01/13/22 10:56 86 L Room Air 01/13/22 08:21 93 Room Air 01/13/22 08:21 140/94 93 Room Air 01/13/22 08:21 93 Room Air 01/13/22 08:21 98 Room Air Laboratory Results Laboratory Results - last 24 hr 01/13/22 01/13/22 01/13/22 08:40 08:40 08:40 WBC 9.53 RBC 3.76 L Hgb 13.3 L Hct 37.1 L MCV 98.7 MCH 35.4 H MCHC 35.8 RDW Std Deviation 53.0 H RDW Coeff of Antony 14.4 Plt Count 175 MPV 10.8 Immature Gran % (Auto) 0.4 Neut % (Auto) 75.3 Lymph % (Auto) 6.9 Callaway % (Auto) 16.9 Eos % (Auto) 0.0 Baso % (Auto) 0.5 Neut # (Auto) 7.17 H Lymph # (Auto) 0.66 L [place] # (Auto) 1.61 H Eos # (Auto) 0.00 Baso # (Auto) 0.05 Immature Gran # (Auto) 0.04 H D-Dimer 2100 H* Sodium 139 Potassium 3.8 Chloride 96 L Carbon Dioxide 31 Anion Gap 12 H BUN 14 Creatinine 0.61 Est Cr Clr Drug Dosing 87.9 Est GFR ( Amer) 124.0 Est GFR (Non-Af Amer) 107.0 BUN/Creatinine Ratio 23.0 H Glucose 122 H Calcium 10.0 Total Bilirubin 0.8 AST 77 H ALT 36 Alkaline Phosphatase 75 Troponin I High Sens 9.9 D Total Protein 7.3 Albumin 4.6 Globulin 2.7 Albumin/Globulin Ratio 1.7 Lipase 55 Influ A Molecular Assay Influ B Molecular Assay SARS-CoV-2, RNA, NAAT 01/13/22 01/13/22 08:40 08:40 WBC RBC Hgb Hct MCV MCH MCHC RDW Std Deviation RDW Coeff of Antony Plt Count MPV Immature Gran % (Auto) Neut % (Auto) Lymph % (Auto) Callaway % (Auto) Eos % (Auto) Baso % (Auto) Neut # (Auto) Lymph # (Auto) Callaway # (Auto) Eos # (Auto) Baso # (Auto) Immature Gran # (Auto) D-Dimer Sodium Potassium Chloride Carbon Dioxide Anion Gap BUN Creatinine Est Cr Clr Drug Dosing Est GFR ( Amer) Est GFR (Non-Af Amer) BUN/Creatinine Ratio Glucose Calcium Total Bilirubin AST ALT Alkaline Phosphatase Troponin I High Sens Total Protein Albumin Globulin Albumin/Globulin Ratio Lipase Influ A Molecular Assay Negative Influ B Molecular Assay Negative SARS-CoV-2, RNA, NAAT NEGATIVE Diagnostic Findings Chest X-ray 01/13/22 - IMPRESSION: Emphysematous changes with no acute cardiopulmonary abnormality identified. CTA Chest 01/13/22 - IMPRESSION: 1. There is no evidence of pulmonary embolus in the main, lobar, or segmental pulmonary arteries. 2. Emphysema. 3. There is no airspace consolidation typical for pneumonia or pleural effusion. 4. Diffuse peribronchial thickening is again noted and there are minimal tree-in-bud opacities at the right lung base. These findings suggest bronchitis/reactive airway disease. Clinical correlation will be required. 5. Additional findings as above. Medications Administered Discontinued Medications Ioversol (Optiray 320 500ml) 120 ml IV ONCE ONE Stop: 01/13/22 09:43 Last Admin: 01/13/22 09:36 Dose: 120 ml Documented By: SAMIRA Ketorolac Tromethamine (Ketorolac Tromethamine 15 Mg/Ml Vial) 10 mg IV NOW ONE Stop: 01/13/22 08:37 Last Admin: 01/13/22 08:53 Dose: 10 mg Documented By: EMMANUEL Methylprednisolone (Methylprednisolone 40 Mg/Ml Vial) 40 mg IV NOW STA Stop: 01/13/22 08:37 Last Admin: 01/13/22 08:53 Dose: 40 mg Documented By: EMMANUEL Supervising Physician Co-Signing Physician Notes 62-year-old man with history of COPD, current smoker and other medical problems who presented with cough, pleuritic chest pain, shortness of breath and wheezing that started yesterday, associated with rhinorrhea and posttussive vomiting. Exam notable for thin man in no obvious distress, diminished breath sounds. Labs notable for hemoglobin of 13.3, D-dimer of 2100, magnesium of 1.1 AST of 77 Flu and COVID test were negative Chest x-ray noted emphysematous changes without acute abnormality CT PE noted no PE, emphysema, no airspace consolidation, diffuse peribronchial thickening and minimal tree-in-bud opacity in right lung base suggestive of bronchitis/reactive airway disease. COPD exacerbation Smoker Alcohol use. Hypomagnesemia Counseled patient extensively regarding the need for smoking cessation Oxygen saturation noted to have dropped to 86% with exercise and ER. Wearing oxygen. We need to step prior to discharge Continue nebs Continue prednisone CIWA protocol Replete hypomagnesemia and monitor electrolytes Agree with other plans as detailed by Swati Zapata PA-C
[2022-01-13] MEDS ORDERED: LORazepam 1 MG TAB PO PRN (12:17)
[2022-01-13] MEDS ORDERED: GABAPENTIN 800MG ALCOHOL WITHDRAWAL LOAD PO STA (12:17)
[2022-01-13] MEDS ORDERED: GABAPENTIN 400 MG CAP PO ONE (12:30)
[2022-01-13] MEDS ORDERED: ALBUT/IPRATROP 3MG/0.5MG NEB 3 ML VIAL NEB PRN (12:40)
[2022-01-13 12:57] LABS: Magnesium 1.1 mg/dl (1.7-2.4)
[2022-01-13] MEDS ORDERED: MAGNESIUM SULFATE / D5W 1 GM/100 ML BAG IV STA (13:12)
[2022-01-13] MEDS: AZITHROMYCIN 250 MG TAB PO SCH (13:50)
[2022-01-13] MEDS: THIAMINE HCL 100 MG TAB PO SCH (13:51)
[2022-01-13] MEDS: FOLIC ACID 1 MG TAB PO SCH (13:51)
[2022-01-13 15:27] LABS: Amphetamines+Metham, Urine Neg (Neg); Barbiturates, Urine Neg (Neg); Benzodiazepine, Urine Neg (Neg); Cocaine, Urine Neg (Neg); MDMA (Ecstacy), Urine Neg (Neg); Methadone, Urine Neg (Neg); Opiate, Urine Neg (Neg); Phencyclidine, Urine Neg (Neg)
[2022-01-13] MEDS: ALBUT/IPRATROP 3MG/0.5MG NEB 3 ML VIAL NEB SCH ×2 (15:30→19:14)
[2022-01-13] MEDS: GABAPENTIN 400 MG CAP PO SCH ×2 (17:24→23:44)
[2022-01-14 06:40] LABS: Basophils # (auto) 0.01 K/uL (0-0.2); Basophils % (auto) 0.1 %; Eosinophils # (auto) 0.02 K/uL (0-0.50); Eosinophils % (auto) 0.3 %; Hematocrit (blood only) 37.4 % (40.1-51.0); Hemoglobin 13.3 g/dl (14.0-18.0); Immature Granulocytes # (auto) 0.02 K/uL (0.00-0.02); Immature Granulocytes % (auto) 0.3 %; Lymphocytes % (auto) 12.7 %; Mean Corpuscular Hgb Conc 35.6 g/dL (32.0-36.0); Mean Corpuscular Volume 98.4 fL (80.0-100.0); Mean Platelet Volume 11.4 fL (9.4-12.4); Monocytes # (auto) 1.21 K/uL (0.24-0.82); Monocytes % (auto) 17.1 %; Neutrophils % (auto) 69.5 %; Platelet Count 154 K/uL (130-400); RDW Coefficient of Variation 14.5 % (11.5-14.5); RDW Standard Deviation 52.9 fL (36.4-46.3); White Blood Count 7.06 K/ul (4.8-10.8)
[2022-01-14 07:25] LABS: BUN Creatinine Ratio 23.4 (10-20); Calcium 9.1 mg/dl (8.5-10.1); Creatinine Clr Calc Pharmacy 78.4 ml/min; Est GFR (African American) 121.6 ml/min; Est GFR (Non-African American) 104.9 ml/min; Magnesium 1.7 mg/dl (1.7-2.4); Potassium 3.7 mmol/L (3.5-5.1)
[2022-01-14] MEDS: FLUTICASONE/VILANTEROL 100/25MCG 14 PUFFS/INHALER INH SCH (07:25)
[2022-01-14] MEDS: FOLIC ACID 1 MG TAB PO SCH (07:25)
[2022-01-14] MEDS: GABAPENTIN 400 MG CAP PO SCH ×3 (07:25→23:42)
[2022-01-14] MEDS: MAGNESIUM OXIDE 400 MG TAB PO SCH (07:25)
[2022-01-14] MEDS: amLODIPine BESYLATE 5 MG TAB PO SCH (07:25)
[2022-01-14] MEDS: THIAMINE HCL 100 MG TAB PO SCH (07:25)
[2022-01-14] MEDS: UMECLIDINIUM BROMIDE 62.5MCG/BLISTER 7 PUFFS/INHALER INH SCH (07:25)
[2022-01-14] MEDS: ENOXAPARIN INJ 40 MG/0.4 ML SYR SQ SCH (07:26)
[2022-01-14] MEDS: ALBUT/IPRATROP 3MG/0.5MG NEB 3 ML VIAL NEB SCH ×4 (07:32→19:40)
[2022-01-14] MEDS: AZITHROMYCIN 250 MG TAB PO SCH (08:47)
[2022-01-14] MEDS: predniSONE 20 MG TAB PO SCH (08:47)
--- NOTE | 2022-01-14 16:00 | Hospitalist Progress Note ---
Date of Service January 14, 2022 Assessment & Plan (1) COPD exacerbation: Plan: Patient presented with similar symptoms in September. Not on chronic oxygen therapy at home. Continues to smoke. Found to be hypoxic with ambulation in the ED so referred for admission. Acute COPD Exacerbation --CTA:There is no evidence of pulmonary embolus in the main, lobar, or segmental pulmonary arteries. Emphysema. There is no airspace consolidation typical for pneumonia or pleural effusion. Diffuse peribronchial thickening is again noted and there are minimal tree-in-bud opacities at the right lung base. These findings suggest bronchitis/reactive airway disease. Clinical correlation will be required. --COVID, influenza screen negative --Continue Nebs, Prednisone, azithromycin - Continue supplemental Oxygen as needed Continue home inhalers Saturating low 90s on room air Monitor to keep oxygen saturations 88 to 92% (2) Hypoxia: Plan: secondary to above (3) Hypertension: Plan: Pt has not been taking the amlodipine prescribed at last admission Resume amlodipine Monitor BP (4) Tobacco use disorder: Plan: Pt declines nicotine patch (5) Alcohol abuse: Plan: Reports drinking "one glass" of vodka per day -Alcohol Withdrawal -Alcohol level <10 -Negative Toxicology Screen -Continue Gabapentin Protocol -Continue Thiamine, folic acid -Ativan PRN Plan DVT Px: Lovenox SQ Code Status: Full code Admission and Anticipated Discharge Date Admission Date: January 13, 2022 Subjective Patient is seen and examined at bedside Reports cough with expectoration, right pleuritic discomfort Also reports feet cramps Denies dyspnea, dizziness, nausea, abd pain No other complaints Saturating low 90s on room air Review of Systems Review of Systems: All systems reviewed & are unremarkable except as noted in Subjective Physical Exam Physical Exam: Physical Exam: Vitals signs as noted above General Appearance:Thin, frail, Chronic ill appearing, no apparent distress Head: normocephalic, Atraumatic Eyes: normal inspection, EOMI Neck: supple, Trachea midline Respiratory/Chest: Decreased breath sounds, CTA, No accessory muscle use Cardiovascular: S1, S2, No murmur Abdomen/GI:Soft, Non tender, Bowel sounds present Extremities/Musculoskeletal:normal inspection, no edema Neurologic/Psych:AAOX3, grossly no focal neurological deficits, Tremor Skin: normal color, warm Results & Data Results & Data ([facility]) Vital Signs (Past 12 Hours) Vital Signs Temp Pulse Resp BP Pulse Ox O2 Del Method 01/14/22 15:44 36.7 C 86 19 150/84 H 92 Room Air 01/14/22 15:06 100 H 18 96 Room Air 01/14/22 12:18 37.0 C 107 H 20 139/56 L 89 L Room Air 01/14/22 10:38 98 H 18 91 Room Air 01/14/22 08:00 57 L 16 160/86 H 98 Room Air 01/14/22 07:32 82 16 92 Room Air Laboratory Results Short CBC 01/14/22 Range/Units 05:51 WBC 7.06 (4.8-10.8) K/ul Hgb 13.3 L (14.0-18.0) g/dl Hct 37.4 L (40.1-51.0) % Plt Count 154 (130-400) K/uL BMP 01/14/22 05:51 Sodium 136 Potassium 3.7 Chloride 97 L Carbon Dioxide 32 BUN 15 Creatinine 0.64 Glucose 79 Calcium 9.1
[2022-01-14] MEDS ORDERED: Ativan PO Alcohol Withdrawal--Active Protocol PO PRN (16:51)
[2022-01-14] MEDS ORDERED: LORazepam 1 MG TAB PO PRN ×3 (16:51)
[2022-01-15] MEDS: ALBUT/IPRATROP 3MG/0.5MG NEB 3 ML VIAL NEB SCH ×4 (05:42→19:07)
[2022-01-15 07:02] LABS: BUN Creatinine Ratio 27.7 (10-20); Calcium 9.6 mg/dl (8.5-10.1); Creatinine Clr Calc Pharmacy 77.8 ml/min; Est GFR (African American) 120.8 ml/min; Est GFR (Non-African American) 104.3 ml/min; Magnesium 1.6 mg/dl (1.7-2.4); Potassium 3.5 mmol/L (3.5-5.1)
[2022-01-15] MEDS: predniSONE 20 MG TAB PO SCH (07:54)
[2022-01-15] MEDS: AZITHROMYCIN 250 MG TAB PO SCH (07:54)
[2022-01-15] MEDS: amLODIPine BESYLATE 5 MG TAB PO SCH (07:54)
[2022-01-15] MEDS: MAGNESIUM OXIDE 400 MG TAB PO SCH (07:55)
[2022-01-15] MEDS: THIAMINE HCL 100 MG TAB PO SCH (07:55)
[2022-01-15] MEDS: FOLIC ACID 1 MG TAB PO SCH (07:55)
[2022-01-15] MEDS: UMECLIDINIUM BROMIDE 62.5MCG/BLISTER 7 PUFFS/INHALER INH SCH (08:29)
[2022-01-15] MEDS: FLUTICASONE/VILANTEROL 100/25MCG 14 PUFFS/INHALER INH SCH (08:30)
[2022-01-15] MEDS: ENOXAPARIN INJ 40 MG/0.4 ML SYR SQ SCH (08:31)
[2022-01-15] MEDS ORDERED: MAGNESIUM SULFATE / D5W 1 GM/100 ML BAG IV ONE (09:15)
[2022-01-15] MEDS ORDERED: GLUCOSE 10 TAB/TUBE PO PRN (09:17)
[2022-01-15] MEDS ORDERED: CARBOHYDRATES FOR HYPOGLYCEMIA PO PRN (09:17)
[2022-01-15] MEDS ORDERED: GLUCAGON FOR INJ 1 MG VIAL SQ PRN (09:17)
[2022-01-15] MEDS ORDERED: DEXTROSE 50% 50 ML SYRINGE IV PRN (09:17)
[2022-01-15] MEDS ORDERED: GLUCOSE 40% GEL 15 GM TUBE PO PRN (09:17)
[2022-01-15] MEDS: GABAPENTIN 400 MG CAP PO SCH ×2 (11:56→23:54)
--- NOTE | 2022-01-15 16:41 | Hospitalist Progress Note ---
Date of Service January 15, 2022 Assessment & Plan (1) COPD exacerbation: Plan: Patient presented with similar symptoms in September. Not on chronic oxygen therapy at home. Continues to smoke. Found to be hypoxic with ambulation in the ED so referred for admission. Acute COPD Exacerbation --CTA:There is no evidence of pulmonary embolus in the main, lobar, or segmental pulmonary arteries. Emphysema. There is no airspace consolidation typical for pneumonia or pleural effusion. Diffuse peribronchial thickening is again noted and there are minimal tree-in-bud opacities at the right lung base. These findings suggest bronchitis/reactive airway disease. Clinical correlation will be required. --COVID, influenza screen negative --Continue Nebs, Prednisone, azithromycin - Continue supplemental Oxygen as needed Continue home inhalers Saturating well on room air Monitor to keep oxygen saturations 88 to 92% Slowly improving (2) Hypoxia: Plan: secondary to above (3) Hypertension: Plan: Pt has not been taking the amlodipine prescribed at last admission Resume amlodipine Monitor BP (4) Tobacco use disorder: Plan: Pt declines nicotine patch (5) Alcohol abuse: Plan: Reports drinking "one glass" of vodka per day -Alcohol Withdrawal -Alcohol level <10 -Negative Toxicology Screen -Continue Gabapentin Protocol -Continue Thiamine, folic acid -Ativan PRN Plan DVT Px: Lovenox SQ Code Status: Full code Admission and Anticipated Discharge Date Admission Date: January 13, 2022 Subjective Patient is seen and examined at bedside Feels better today Less cough today Denies chest pain, dyspnea, dizziness, nausea, abd pain Saturating well on room Review of Systems Review of Systems: All systems reviewed & are unremarkable except as noted in Subjective Physical Exam Physical Exam: Physical Exam: Vitals signs as noted above General Appearance:Thin, frail, Chronic ill appearing, no apparent distress Head: normocephalic, Atraumatic Eyes: normal inspection, EOMI Neck: supple, Trachea midline Respiratory/Chest: Decreased breath sounds, B/L wheezing, rhinchi, No accessory muscle use Cardiovascular: S1, S2, No murmur Abdomen/GI:Soft, Non tender, Bowel sounds present Extremities/Musculoskeletal:normal inspection, no edema Neurologic/Psych:AAOX3, grossly no focal neurological deficits, Tremor Skin: normal color, warm Results & Data Results & Data ([facility]) Vital Signs (Past 12 Hours) Vital Signs Temp Pulse Pulse Pulse Resp BP Pulse Ox 01/15/22 16:14 36.6 C 20 L 88 18 150/77 H 94 01/15/22 14:48 93 H 18 93 01/15/22 14:18 01/15/22 11:30 77 16 94 01/15/22 10:50 36.7 C 80 16 149/84 H 93 01/15/22 08:00 36.8 C 77 16 153/63 H 97 01/15/22 07:42 62 01/15/22 05:43 79 18 97 O2 Del Method 01/15/22 16:14 Room Air 01/15/22 14:48 Room Air 01/15/22 14:18 Room Air 01/15/22 11:30 Room Air 01/15/22 10:50 Room Air 01/15/22 08:00 Room Air 01/15/22 07:42 01/15/22 05:43 Room Air Laboratory Results [facility] 01/15/22 05:54 Sodium 135 L Potassium 3.5 Chloride 97 L Carbon Dioxide 30 BUN 18 Creatinine 0.65 Glucose 63 L Calcium 9.6
[2022-01-16] MEDS: ALBUT/IPRATROP 3MG/0.5MG NEB 3 ML VIAL NEB SCH ×3 (07:05→14:33)
[2022-01-16] MEDS: predniSONE 20 MG TAB PO SCH (07:53)
[2022-01-16] MEDS: FOLIC ACID 1 MG TAB PO SCH (07:53)
[2022-01-16] MEDS: MAGNESIUM OXIDE 400 MG TAB PO SCH (07:54)
[2022-01-16] MEDS: THIAMINE HCL 100 MG TAB PO SCH (07:54)
[2022-01-16] MEDS: AZITHROMYCIN 250 MG TAB PO SCH (07:54)
[2022-01-16] MEDS: amLODIPine BESYLATE 5 MG TAB PO SCH (07:54)
[2022-01-16] MEDS: FLUTICASONE/VILANTEROL 100/25MCG 14 PUFFS/INHALER INH SCH (08:30)
[2022-01-16] MEDS: ENOXAPARIN INJ 40 MG/0.4 ML SYR SQ SCH (08:31)
[2022-01-16] MEDS: UMECLIDINIUM BROMIDE 62.5MCG/BLISTER 7 PUFFS/INHALER INH SCH (08:31)
[2022-01-16 08:59] LABS: BUN Creatinine Ratio 39.1 (10-20); Creatinine Clr Calc Pharmacy 79.2 ml/min; Est GFR (African American) 121.6 ml/min; Est GFR (Non-African American) 104.9 ml/min; Magnesium 1.8 mg/dl (1.7-2.4); Potassium 3.5 mmol/L (3.5-5.1)
[2022-01-16 09:04] LABS: Hematocrit (blood only) 37.9 % (40.1-51.0); Hemoglobin 13.5 g/dl (14.0-18.0); Mean Corpuscular Hemoglobin 35.7 pg (25.0-34.0); Mean Corpuscular Hgb Conc 35.6 g/dL (32.0-36.0); Mean Corpuscular Volume 100.3 fL (80.0-100.0); Mean Platelet Volume 11.9 fL (9.4-12.4); Platelet Count 143 K/uL (130-400); RDW Coefficient of Variation 14.3 % (11.5-14.5); RDW Standard Deviation 52.8 fL (36.4-46.3); Red Blood Count 3.78 M/uL (4.63-6.08); White Blood Count 7.42 K/ul (4.8-10.8)
--- NOTE | 2022-01-16 16:09 | Hospitalist Progress Note ---
Date of Service January 16, 2022 Assessment & Plan (1) COPD exacerbation: Plan: Patient presented with similar symptoms in September. Not on chronic oxygen therapy at home. Continues to smoke. Found to be hypoxic with ambulation in the ED so referred for admission. Acute COPD Exacerbation --CTA:There is no evidence of pulmonary embolus in the main, lobar, or segmental pulmonary arteries. Emphysema. There is no airspace consolidation typical for pneumonia or pleural effusion. Diffuse peribronchial thickening is again noted and there are minimal tree-in-bud opacities at the right lung base. These findings suggest bronchitis/reactive airway disease. Clinical correlation will be required. --COVID, influenza screen negative --Continue Nebs, Prednisone, azithromycin - Continue supplemental Oxygen as needed Continue home inhalers Saturating well on room air 2 step: did not qualify for oxygen Plan to discharge home today (2) Hypoxia: Plan: secondary to above (3) Hypertension: Plan: Pt has not been taking the amlodipine prescribed at last admission Resume amlodipine Monitor BP (4) Tobacco use disorder: Plan: Pt declines nicotine patch (5) Alcohol abuse: Plan: Reports drinking "one glass" of vodka per day -Alcohol Withdrawal -Alcohol level <10 -Negative Toxicology Screen -Continue Gabapentin Protocol -Continue Thiamine, folic acid -Ativan PRN Plan DVT Px: Lovenox SQ Code Status: Full code Admission and Anticipated Discharge Date Admission Date: January 13, 2022 Subjective Patient is seen and examined at bedside No new complaints Cough only minimal Denies chest pain, dyspnea, dizziness, nausea, abd pain Saturating well on room Had 2 step earlier today Review of Systems Review of Systems: All systems reviewed & are unremarkable except as noted in Subjective Physical Exam Physical Exam: Physical Exam: Vitals signs as noted above General Appearance:Thin, frail, Chronic ill appearing, no apparent distress Head: normocephalic, Atraumatic Eyes: normal inspection, EOMI Neck: supple, Trachea midline Respiratory/Chest: Decreased breath sounds, CTA, No accessory muscle use Cardiovascular: S1, S2, No murmur Abdomen/GI:Soft, Non tender, Bowel sounds present Extremities/Musculoskeletal:normal inspection, no edema Neurologic/Psych:AAOX3, grossly no focal neurological deficits, Tremor Skin: normal color, warm Results & Data Results & Data ([facility]) Vital Signs (Past 12 Hours) Vital Signs Temp Pulse Pulse Pulse Pulse Pulse Pulse 01/16/22 15:57 36.7 C 82 01/16/22 15:00 104 H 01/16/22 14:33 84 01/16/22 12:34 36.5 C 82 01/16/22 07:30 01/16/22 11:28 114 H 111 H 94 H 01/16/22 10:49 64 01/16/22 07:38 36.7 C 84 01/16/22 07:15 60 01/16/22 07:06 64 Resp Resp Resp Resp BP BP Pulse Ox 01/16/22 15:57 19 153/86 H 95 01/16/22 15:00 01/16/22 14:33 18 95 01/16/22 12:34 19 140/81 94 01/16/22 07:30 01/16/22 11:28 20 18 18 01/16/22 10:49 18 94 01/16/22 07:38 18 162/91 H 96 01/16/22 07:15 01/16/22 07:06 18 93 Pulse Ox Pulse Ox Pulse Ox O2 Del Method 01/16/22 15:57 Room Air 01/16/22 15:00 01/16/22 14:33 Room Air 01/16/22 12:34 Room Air 01/16/22 07:30 Room Air 01/16/22 11:28 93 94 92 01/16/22 10:49 Room Air 01/16/22 07:38 Room Air 01/16/22 07:15 01/16/22 07:06 Room Air Laboratory Results Short CBC 01/16/22 Range/Units 07:37 WBC 7.42 (4.8-10.8) K/ul Hgb 13.5 L (14.0-18.0) g/dl Hct 37.9 L (40.1-51.0) % Plt Count 143 (130-400) K/uL BMP 01/16/22 07:37 Sodium 132 L Potassium 3.5 Chloride 97 L Carbon Dioxide 28 BUN 25 H Creatinine 0.64 Glucose 75 Calcium 9.0
--- NOTE | 2022-01-16 16:17 | Discharge Summary ---
Date of Service January 16, 2022 Admission HPI Per Admitting Provider This is a 61 y/o male with PMH of COPD, tobacco abuse, alcohol abuse, HTN, and vascular claudication who presented to the ED this morning with abrupt onset last night of cough, pleuritic chest pain, shortness of breath and wheezing. Pt reports that he was at work, feeling at baseline, when he had the sudden onset of cough, productive of clear to white mucus, with associated difficulty breathing. He felt weak and shaking but denies fever or chills. He developed a runny nose and PND with vomiting associated with the drainage but denies nausea or diarrhea. No known sick contacts. Reports he received the flu vaccine this year but not the COVID vaccine. He ran out of his albuterol rescue inhaler but has been taking the Advair and Spiriva. He has not been taking the amlodipine prescribed in September as he says that it was not sent with this last round of refills. Someone took his BP at work last night and it was reportedly >200. He was admitted in September with similar symptoms, treated with steroids and antibiotics. He continues to smoke 1-1.5 PPD, more on the weekends, but declines a nicotine patch at present. He reports drinking "one glass" of vodka per day - denies prior history of alcohol withdrawal. Admission Exam Per Admitting Provider Physical Exam Constitutional: + cachectic and + disheveled; no acute d istress Eyes: + anicteric sclerae Neck: trachea midline Respiratory: no respiratory distress and no labored breathing Auscultation: + diminished lung sounds coarse BS left > right, no wheezing at present Cardiovascular: Rate/Rhythm: regular rhythm and + tachycardic Vessels: posterior tibial pulses present and radial pulses present Extremities: no edema Gastrointestinal (Abdomen): Inspection/Auscultation: normal bowel sounds; abdomen not distended Percussion/Palpation: + abdomen tender (upper abdomen/lower chest) and abdomen soft Musculoskeletal: Head/Neck/Chest: no localized rib tenderness Skin: no jaundice Neurologic: moves all extremities; no focal motor deficits Motor/Sensory: + tremor (generalized tremulousness) Psychiatric: Orientation: alert and oriented x 3 Principal Diagnosis Acute COPD Exacerbation Hypoxia--resolved Tobacco use disorder Alcohol abuse Discharge Data Allergies Allergy/AdvReac Type Severity Reaction Status Date / Time No Known Allergies Allergy Unverified 01/13/22 12:48 Consultations 11/29/22 11:23 ED Decision to Admit Stat Procedures Performed Laboratory Results WBC 7.42 K/ul (4.8-10.8) 01/16/22 07:37 RBC 3.78 M/uL (4.63-6.08) L 01/16/22 07:37 Hgb 13.5 g/dl (14.0-18.0) L 01/16/22 07:37 Hct 37.9 % (40.1-51.0) L 01/16/22 07:37 MCV 100.3 fL (80.0-100.0) H 01/16/22 07:37 MCH 35.7 pg (25.0-34.0) H 01/16/22 07:37 MCHC 35.6 g/dL (32.0-36.0) 01/16/22 07:37 RDW Std Deviation 52.8 fL (36.4-46.3) H 01/16/22 07:37 RDW Coeff of Antony 14.3 % (11.5-14.5) 01/16/22 07:37 Plt Count 143 K/uL (130-400) 01/16/22 07:37 MPV 11.9 fL (9.4-12.4) 01/16/22 07:37 Immature Gran % (Auto) 0.3 % 01/14/22 05:51 Neut % (Auto) 69.5 % 01/14/22 05:51 Lymph % (Auto) 12.7 % 01/14/22 05:51 [place] % (Auto) 17.1 % 01/14/22 05:51 Eos % (Auto) 0.3 % 01/14/22 05:51 Baso % (Auto) 0.1 % 01/14/22 05:51 Neut # (Auto) 4.90 K/uL (1.4-6.5) 01/14/22 05:51 Lymph # (Auto) 0.90 K/uL (1.2-3.4) L 01/14/22 05:51 [place] # (Auto) 1.21 K/uL (0.24-0.82) H 01/14/22 05:51 Eos # (Auto) 0.02 K/uL (0-0.50) 01/14/22 05:51 Baso # (Auto) 0.01 K/uL (0-0.2) 01/14/22 05:51 Immature Gran # (Auto) 0.02 K/uL (0.00-0.02) 01/14/22 05:51 D-Dimer 2100 ug/L FEU (0-500) H* 01/13/22 08:40 Sodium 132 mmol/L (136-145) L 01/16/22 07:37 Potassium 3.5 mmol/L (3.5-5.1) 01/16/22 07:37 Chloride 97 mmol/L (98-107) L 01/16/22 07:37 Carbon Dioxide 28 mmol/L (21-32) 01/16/22 07:37 Anion Gap 7 (3-11) 01/16/22 07:37 BUN 25 mg/dl (6-23) H 01/16/22 07:37 Creatinine 0.64 mg/dl (0.6-1.4) 01/16/22 07:37 Est Cr Clr Drug Dosing 79.2 ml/min 01/16/22 07:37 Est GFR ( Amer) 121.6 ml/min 01/16/22 07:37 Est GFR (Non-Af Amer) 104.9 ml/min 01/16/22 07:37 BUN/Creatinine Ratio 39.1 (10-20) H 01/16/22 07:37 Glucose 75 mg/dl (70-99(Fasting)) 01/16/22 07:37 POC Glucose 132 mg/dl (70-99) H 01/16/22 16:11 Calcium 9.0 mg/dl (8.5-10.1) 01/16/22 07:37 Phosphorus 4.0 mg/dl (2.5-4.9) 01/13/22 08:40 Magnesium 1.8 mg/dl (1.7-2.4) 01/16/22 07:37 Total Bilirubin 0.8 mg/dl (0.2-1.0) 01/13/22 08:40 AST 77 U/L (13-39) H 01/13/22 08:40 ALT 36 U/L (7-52) 01/13/22 08:40 Alkaline Phosphatase 75 U/L (34-104) 01/13/22 08:40 Troponin I High Sens 9.9 pg/ml (0-20) D 01/13/22 08:40 Total Protein 7.3 gm/dl (6.0-8.3) 01/13/22 08:40 Albumin 4.6 gm/dl (3.4-5.0) 01/13/22 08:40 Globulin 2.7 gm/dl (2.5-4.0) 01/13/22 08:40 Albumin/Globulin Ratio 1.7 (0.9-2) 01/13/22 08:40 Lipase 55 U/L (11-82) 01/13/22 08:40 Urine Opiates Screen Neg (Neg) 01/13/22 14:26 Ur Methadone, Qual Neg (Neg) 01/13/22 14:26 Urine Barbiturates Neg (Neg) 01/13/22 14:26 Ur Phencyclidine (PCP) Neg (Neg) 01/13/22 14:26 U Amphetamin/Meth Scrn Neg (Neg) 01/13/22 14:26 MDMA (Ecstasy) Screen Neg (Neg) 01/13/22 14:26 U Benzodiazepines Scrn Neg (Neg) 01/13/22 14:26 Ur Cocaine Metabolite Neg (Neg) 01/13/22 14:26 U Marijuana (THC) Screen Neg (Neg) 01/13/22 14:26 Ethyl Alcohol mg/dL < 10.0 mg/dl (<10.0) 01/13/22 12:46 Influ A Molecular Assay Negative (Negative) 01/13/22 08:40 Influ B Molecular Assay Negative (Negative) 01/13/22 08:40 SARS-CoV-2, RNA, NAAT NEGATIVE (NEGATIVE) 01/13/22 08:40 Impressions Chest X-Ray 01/13/22 08:21 SINGLE VIEW CHEST CLINICAL HISTORY: Atypical chest pain. FINDINGS: An AP, portable, upright chest radiograph is compared to chest x-ray and chest CT dated 10/13/2021. The examination is degraded by portable technique and apical abnormality positioning. The cardiomediastinal silhouette is unremarkable noting atherosclerotic calcification of the thoracic aorta. Enlargement of the central pulmonary arteries suggest pulmonary artery hypertension. Emphysema and chronic interstitial thickening is similar to previous. No airspace consolidation or large pleural effusion is identified. No pneumothorax is seen. The skeletal structures appear osteopenic. There are healed left-sided rib fractures. IMPRESSION: Emphysematous changes with no acute cardiopulmonary abnormality identified. ACT 112: Negative or not required by law. Electronically signed by: Fran Mccormick M.D. 01/13/2022 8:43 AM Chest CTA 01/13/22 09:24 CT ANGIOGRAM OF THE CHEST CLINICAL HISTORY: Pleuritic chest pain. Dyspnea. Elevated D dimer. COMPARISON STUDY: Chest x-ray dated 01/13/2022. Chest CT dated 10/13/2021. TECHNIQUE: Following the IV administration of 120 cc of Optiray 320, CT angiogram of the chest was performed from the upper abdomen to the thoracic inlet utilizing the pulmonary embolus protocol. Images are reviewed in the axial, sagittal, and coronal planes. 3-D MIPS images are created and assessed. IV contrast was administered without complication. A dose lowering technique was utilized adhering to the principles of ALARA. CT DOSE: 273.42 mGy.cm FINDINGS: Thyroid: Imaged portions of the thyroid gland are normal in size and attenuat ion. Thoracic aorta: There is atherosclerotic calcification of the thoracic aorta, which is normal in caliber and demonstrates bovine variant arch anatomy. No dissection is seen. Pulmonary vasculature: The pulmonary trunk is normal in caliber. There are no filling defects identified in main, lobar, or segmental pulmonary branches to suggest pulmonary embolus. Heart: The heart is normal in size and without pericardial effusion. There are coronary artery calcifications. Lungs and pleural spaces: There is [id number] emphysema. Apical scarring is noted. No air space consolidation typical for pneumonia or pleural effusion is identified. Scarring/atelectasis is noted at the lung bases. The trachea and central airways are clear. Diffuse peribronchial thickening is observed. Minimal tree-in-bud airspace opacities are again seen in the right lower lung. A fat- containing Bochdalek hernia is seen on the left. Mediastinum: There is no mediastinal lymphadenopathy. Jeana: Clear. Axillae: There is no axillary lymphadenopathy. Upper abdomen: Partially visualized upper abdominal viscera is within normal limits. Skeletal structures: The skeletal structures appear osteopenic. Mild degenerative change is noted in lower cervical spine and at the thoracolumbar junction. No lytic or blastic bony lesions are seen. There are chronic left- sided rib fractures. IMPRESSION: 1. There is no evidence of pulmonary embolus in the main, lobar, or segmental pulmonary arteries. 2. Emphysema. 3. There is no airspace consolidation typical for pneumonia or pleural effusion. 4. Diffuse peribronchial thickening is again noted and there are minimal tree-in-bud opacities at the right lung base. These findings suggest bronchitis/reactive airway disease. Clinical correlation will be required. 5. Additional findings as above. ACT 112: Negative or not required by law. Electronically signed by: Fran Mccormick M.D. 01/13/2022 9:51 AM Ordered Studies 01/13/22 09:24 CT angio chest PE protocol Stat Hospital Course (1) COPD exacerbation: Patient presented with similar symptoms in September. Not on chronic oxygen therapy at home. Continues to smoke. Found to be hypoxic with ambulation in the ED so referred for admission. Acute COPD Exacerbation --CTA:There is no evidence of pulmonary embolus in the main, lobar, or segmental pulmonary arteries. Emphysema. There is no airspace consolidation typical for pneumonia or pleural effusion. Diffuse peribronchial thickening is again noted and there are minimal tree-in-bud opacities at the right lung base. These findings suggest bronchitis/reactive airway disease. Clinical correlation will be required. --COVID, influenza screen negative --Continue Nebs, Prednisone, azithromycin - Continue supplemental Oxygen as needed Continue home inhalers Saturating well on room air 2 step: did not qualify for oxygen Plan to discharge home today (2) Hypoxia: secondary to above (3) Hypertension: Pt has not been taking the amlodipine prescribed at last admission Resume amlodipine Monitor BP (4) Tobacco use disorder: Pt declines nicotine patch (5) Alcohol abuse: Reports drinking "one glass" of vodka per day -Alcohol Withdrawal -Alcohol level <10 -Negative Toxicology Screen -Continue Gabapentin Protocol -Continue Thiamine, folic acid -Ativan PRN Plan DVT Px: Lovenox SQ Code Status: Full code Total Time Total Time Spent Total Time Spent (In Minutes): 49 minutes Discharge Plan Discharge Items Patient Disposition: Home - Self-Care Reason For Visit: COPD EXCERBATION,HYPOXIA Discharge Diagnosis: Acute COPD Exacerbation Hypoxia--resolved Tobacco use disorder Alcohol abuse Activity: Per Instructions section Exercise/Sports: Gradually increase as tolerated Non-emergency contact: Primary Care Provider Call non-emergency contact if: you have any medication questions, your pain is concerning for you and you have a fever Follow-up/Referrals: Pilgram,Macario A., MD [Primary Care Provider] - (Date & Time 01/22/2022 3:00 PM Provider Macario Rajput MD Department Family Medicine [facility] ) Diet: Heart Healthy Addtl Attending Provider Instructions: Follow-up with your primary care physician Dr. Rajput on 01/22/2022 3:00 PM --- Complete the antibiotic, prednisone course as prescribed --- Quit smoking tobacco, and quit drinking alcohol as advised --- Use your inhalers regularly for COPD. Seek immediate medical attention if your symptoms reoccur or worsen Please take all medications as instructed on discharge list below. Please call if you have any questions or problems. You can reach a [facility] hospitalist on duty at [facility] 24 hours a day by calling [phone] Pending Studies at Discharge: No Stand-Alone Forms: My [facility] [address], Smoking Cessation Medications and DC Order Prescriptions: New azithromycin 250 mg Tablet 250 mg PO QAM Qty: 3 0RF magnesium oxide 400 mg (241.3 mg magnesium) Tablet 400 mg PO QAM Qty: 10 0RF thiamine HCl (vitamin B1) 100 mg Tablet 100 mg PO QAM Qty: 30 0RF folic acid 1 mg Tablet 1 mg PO QAM Qty: 30 0RF prednisone 20 mg tablet 20 mg PO DAILY 5 Days Qty: 5 0RF Continued fluticasone propion-salmeterol [Advair Diskus] 100-50 mcg/dose blister with device 1 inh inhalation DAILY Qty: 60 0RF tiotropium bromide 18 mcg capsule, w/inhalation device 1 cap inhalation DAILY Qty: 2 0RF Rx Instructions: puncture 1 cap using device; one dose = 2 inhalations amlodipine 5 mg tablet 5 mg PO QAM Qty: 30 1RF albuterol sulfate 90 mcg/actuation Hfa Aerosol Inhaler 2 puff INHALATION Q6H PRN (Reason: Shortness Of Breath) Qty: 8.5 1RF Discharge Orders: Discharge Order (Routine); Ordered 01/16/22 Ordered By: Cooper Romero Admission Data Admit Date/Time: 01/13/22 12:12 Attending Provider: Cooper Romero Admit Provider: Poonam Santiago I. Primary Care Provider: Macario Rajput Other Providers: Poonam Santiago I.
[2022-01-17] MEDS ORDERED: GABAPENTIN 400 MG CAP PO SCH (00:30)
== END 2022-01-16 17:48 | disposition home or self-care (01) ==
LOC: ED 08:17 → EDINP 12:12 → SUATTDRO 12:12 → INTOOBSV 12:12 → 2S 13:54

== ENCOUNTER 2022-10-11 18:34 | Inpatient (IN) ==
[2022-10-11] MEDS ORDERED: cefTRIAXone SODIUM 2,000 MG/70 ML BAG IV STA (18:48)
[2022-10-11] MEDS ORDERED: AZITHROMYCIN 500 MG in DEXTROSE 5% 250 ML IV STA (18:48)
[2022-10-11] MEDS ORDERED: ALBUT/IPRATROP 3MG/0.5MG NEB 3 ML VIAL NEB ONE (18:50)
--- NOTE | 2022-10-11 18:52 | Emergency Department Note ---
Impression & Plan COPD exacerbation, COVID-19, Acute hyponatremia, Pneumonia ED Provider Note NAME: JOSELITO YUAN AGE: 62 SEX: M : 1960 ARRIVES VIA: Walk-In INFORMANT: Patient ED PROVIDER(S): Manjit Garza DO CHIEF COMPLAINT: shortness of breath HPI: Patient is a 62-year-old male with a past medical history of COPD, alcohol and tobacco abuse who presents to the ER for shortness of breath. He notes this has been getting worse over the past 3 weeks. Started with a cough, congestion, and runny nose. The symptoms have still been present and getting worse. He admits to chills. He was unable to get up out of his car today and sat there for 5 hours. He admits to midsternal chest pain which has been present for the past 3 weeks. Shortness of breath has been getting worse. Denies any nausea or vomiting. No dysuria, urgency, or frequency. Pain does go down into his stomach. PAST MEDICAL HISTORY:See Below PAST SURGICAL HISTORY:See Below FAMILY HISTORY:See Below SOCIAL HISTORY:See Below HOME MEDICATIONS:See Below ALLERGIES:See Below VITALS:See Below PHYSICAL EXAMINATION: GENERAL: Sitting up in bed, alert, ill-appearing, disheveled, dyspneic with conversation EYE EXAM: normal conjunctiva. OROPHARYNX: mucous membranes are moist NECK: supple, no nuchal rigidity, no adenopathy, non-tender LUNGS: Diffuse wheezing bilaterally. Normal chest wall mechanics HEART: no murmurs, S1 normal and S2 normal ABDOMEN: abdomen soft, non-tender, normo-active bowel sounds, no masses, no rebound or guarding. UPPER EXTREMITIES: upper extremities are grossly normal. LOWER EXTREMITIES: No pitting edema. Calves are equal bilateral NEURO EXAM: Normal sensorium, cranial nerves II-XII grossly intact, normal sp eech, no gross weakness of arms, no gross weakness of legs. MEDICAL DECISION MAKING: Patient is a 62-year-old male who presents ER for above-stated complaint. IV was established blood work was obtained. External records reviewed. Labs show mild leukocytosis of 13,000. No significant anemia. INR unremarkable. BMP with mild hyponatremia at 124. Lactate was normal. T. bili at 1.3. LFTs unremarkable. Pro-Naif 0.5. UA was clean. Patient was positive for COVID. Patient was unable to get out of his car earlier today as he was too weak. Chest x-ray with a left upper lobe infiltrate/consolidation. CT of the chest was performed and shows partial collapse of the lung and pneumonia. Patient was given steroids and fluids as well as hour-long neb treatment. Was also given Rocephin and azithromycin. Updated bedside. Admitted for further work-up Triage Nursing notes reviewed. Limited review of prior medical records performed Vital Signs: reviewed and remarkable for tachycardic Differential diagnosis: Differential diagnoses includes but is not limited to pneumonia, bronchitis, COPD/Asthma exacerbation, pneumothorax, pulmonary embolism, congestive heart failure, acute coronary syndrome ER treatment provided: See below Diagnostics interpreted by me include EKG and cardiac monitoring as listed below: -Cardiac Monitoring: An order was placed for continuous cardiac monitoring. The monitor shows a rate of 101 with sinus rhythm. -ECG: Sinus tachycardia rate of 109 Normal axis Poor baseline T wave inversions in the septal leads with septal Q waves QTc 428 T wave versions are now new in the septal leads -Laboratory studies:Interpreted by me as stated above in MDM and shown below. Imaging studies: Xrays: As interpreted by me: Portable AP upright 1 view of the chest shows consolidation left upper CTs show: CT of the chest shows pneumonia and partial lung collapse Consultation(s): As described in MDM Procedures:none Past Med/Surg History Medical History Atherosclerosis of lower extremity with intermittent claudication "right leg" COPD (chronic obstructive pulmonary disease) History of torsades de pointes Hypertension Tobacco use disorder Surgical History History of dental surgery S/P tonsillectomy and adenoidectomy Family History Mother Diabetes Heart disease Social History Smoking Status: Current every day smoker Tobacco Type: Cigarettes Cigarettes Per Day: 1 ppd; Do You Dip or Chew Tobacco: No; Hx Alcohol Use: Yes Alcohol type: beer and hard liquor Hx Substance Use: No Preferred Language: Polish Communication Ability: Effective Grain Shoveler Required: No Beliefs That Will Affect Care: None Current Living Situation: Alone Feels Safe at Home: Yes Assistive Devices: None Allergies Allergies Allergy/AdvReac Type Severity Reaction Status Date / Time No Known Allergies Allergy Unverified 10/11/22 21:09 Home Meds Previous Rx's Medication Instructions Recorded fluticasone 100 mcg-salmeterol 50 1 inh inhalation DAILY #60 ea 10/14/21 mcg/dose blistr powdr for inhalation (Advair Diskus) tiotropium bromide 18 mcg capsule 1 cap inhalation DAILY #2 10/14/21 with inhalation device inhalations albuterol sulfate 90 mcg/actuation 2 puff inhalation Q6H PRN 01/16/22 aerosol inhaler Shortness Of Breath #8.5 grams amlodipine 5 mg tablet 5 mg PO QAM #30 tabs 01/16/22 Results & Data (ED) Vital Signs Vital Signs - 24 hr 10/11/22 18:36 10/11/22 18:49 10/11/22 18:48 Temperature 36.6 C 36.9 C Temperature Source Temporal Artery Scan Oral Pulse Rate 119 H Pulse Rate [Right Finger] 120 H Pulse Rate from SpO2 Sensor Pulse Rhythm [Right Finger] Regular Pulse Strength [Right Finger] Normal Respiratory Rate 16 26 H Respiratory Effort / Characteristics Non-Labored Spontaneous Respiratory Depth Normal Respiratory Pattern Regular Blood Pressure 132/83 Blood Pressure [Right Arm] 139/91 Blood Pressure Mean 99 Blood Pressure Mean [Right Arm] 107 Blood Pressure Position [Right Arm] Sitting Pulse Oximetry 93 97 95 Oxygen Delivery Method Room Air Room Air Sepsis Recent Fever Within 48 Hours No Sepsis New/Unexplained Change in Mental Status N/A Sepsis Action Taken by Nursing No Action Required 10/11/22 18:48 10/11/22 18:34 10/11/22 18:49 Temperature 36.9 C Temperature Source Oral Pulse Rate 120 H Pulse Rate [Right Finger] 111 H Pulse Rate from SpO2 Sensor Pulse Rhythm [Right Finger] Regular Pulse Strength [Right Finger] Normal Respiratory Rate 24 Respiratory Effort / Characteristics Spontaneous Respiratory Depth Normal Respiratory Pattern Regular Blood Pressure Blood Pressure [Right Arm] 139/91 Blood Pressure Mean Blood Pressure Mean [Right Arm] 107 Blood Pressure Position [Right Arm] Sitting Pulse Oximetry 94 97 Oxygen Delivery Method Room Air Room Air Sepsis Recent Fever Within 48 Hours Sepsis New/Unexplained Change in Mental Status Sepsis Action Taken by Nursing 10/11/22 19:37 10/11/22 18:49 10/11/22 18:50 Temperature Temperature Source Pulse Rate 118 H 120 H Pulse Rate [Right Finger] 87 Pulse Rate from SpO2 Sensor 113 H 117 H Pulse Rhythm [Right Finger] Pulse Strength [Right Finger] Respiratory Rate 18 21 24 Respiratory Effort / Characteristics Non-Labored Spontaneous Respiratory Depth Respiratory Pattern Blood Pressure Blood Pressure [Right Arm] Blood Pressure Mean Blood Pressure Mean [Right Arm] Blood Pressure Position [Right Arm] Pulse Oximetry 100 93 96 Oxygen Delivery Method Room Air Sepsis Recent Fever Within 48 Hours Sepsis New/Unexplained Change in Mental Status Sepsis Action Taken by Nursing 10/11/22 19:00 10/11/22 19:00 10/11/22 19:10 Temperature Temperature Source Pulse Rate 104 H Pulse Rate [Right Finger] Pulse Rate from SpO2 Sensor 111 H 103 H Pulse Rhythm [Right Finger] Pulse Strength [Right Finger] Respiratory Rate 22 Respiratory Effort / Characteristics Respiratory Depth Respiratory Pattern Blood Pressure 136/91 Blood Pressure [Right Arm] Blood Pressure Mean 101 Blood Pressure Mean [Right Arm] Blood Pressure Position [Right Arm] Pulse Oximetry 97 98 Oxygen Delivery Method Sepsis Recent Fever Within 48 Hours Sepsis New/Unexplained Change in Mental Status Sepsis Action Taken by Nursing 10/11/22 19:20 10/11/22 19:20 10/11/22 19:30 Temperature Temperature Source Pulse Rate 91 H Pulse Rate [Right Finger] Pulse Rate from SpO2 Sensor 92 H Pulse Rhythm [Right Finger] Pulse Strength [Right Finger] Respiratory Rate 23 Respiratory Effort / Characteristics Respiratory Depth Respiratory Pattern Blood Pressure 132/89 142/90 H Blood Pressure [Right Arm] Blood Pressure Mean 91 108 Blood Pressure Mean [Right Arm] Blood Pressure Position [Right Arm] Pulse Oximetry 90 Oxygen Delivery Method Sepsis Recent Fever Within 48 Hours Sepsis New/Unexplained Change in Mental Status Sepsis Action Taken by Nursing 10/11/22 19:30 10/11/22 19:40 10/11/22 19:45 Temperature Temperature Source Pulse Rate 94 H 87 90 Pulse Rate [Right Finger] Pulse Rate from SpO2 Sensor 89 Pulse Rhythm [Right Finger] Pulse Strength [Right Finger] Respiratory Rate 17 20 17 Respiratory Effort / Characteristics Respiratory Depth Respiratory Pattern Blood Pressure Blood Pressure [Right Arm] Blood Pressure Mean Blood Pressure Mean [Right Arm] Blood Pressure Position [Right Arm] Pulse Oximetry 92 98 Oxygen Delivery Method Sepsis Recent Fever Within 48 Hours Sepsis New/Unexplained Change in Mental Status Sepsis Action Taken by Nursing 10/11/22 19:45 10/11/22 19:50 10/11/22 20:00 Temperature Temperature Source Pulse Rate 91 H Pulse Rate [Right Finger] Pulse Rate from SpO2 Sensor 90 Pulse Rhythm [Right Finger] Pulse Strength [Right Finger] Respiratory Rate 13 Respiratory Effort / Characteristics Respiratory Depth Respiratory Pattern Blood Pressure 153/92 H 145/92 H Blood Pressure [Right Arm] Blood Pressure Mean 106 112 Blood Pressure Mean [Right Arm] Blood Pressure Position [Right Arm] Pulse Oximetry 100 Oxygen Delivery Method Sepsis Recent Fever Within 48 Hours Sepsis New/Unexplained Change in Mental Status Sepsis Action Taken by Nursing 10/11/22 20:00 10/11/22 20:10 10/11/22 22:56 Temperature Temperature Source Pulse Rate 90 99 H 89 Pulse Rate [Right Finger] Pulse Rate from SpO2 Sensor 90 99 H Pulse Rhythm [Right Finger] Pulse Strength [Right Finger] Respiratory Rate 19 20 Respiratory Effort / Characteristics Respiratory Depth Respiratory Pattern Blood Pressure Blood Pressure [Right Arm] Blood Pressure Mean Blood Pressure Mean [Right Arm] Blood Pressure Position [Right Arm] Pulse Oximetry 100 100 Oxygen Delivery Method Sepsis Recent Fever Within 48 Hours Sepsis New/Unexplained Change in Mental Status Sepsis Action Taken by Nursing Laboratory Data 10/11/22 18:59 10/11/22 18:59 Lab Results 10/11/22 10/11/22 10/11/22 Range/Units 18:48 18:48 18:59 WBC 13.46 H (4.8-10.8) K/ul RBC 4.04 L (4.70-6.10) M/uL Hgb 13.3 L (14.0-18.0) g/dl Hct 37.1 L (42.0-52.0) % MCV 91.8 (80.0-100.0) fL MCH 32.9 (25.0-34.0) pg MCHC 35.8 (32.0-36.0) g/dL RDW Std Deviation 41.4 (36.4-46.3) fL RDW Coeff of Antony 12.3 (11.5-14.5) % Plt Count 361 (130-400) K/uL MPV 9.8 (9.4-12.4) fL Immature Gran % (Auto) 0.7 % Neut % (Auto) 85.7 % Lymph % (Auto) 3.6 % [place] % (Auto) 9.9 % Eos % (Auto) 0.0 % Baso % (Auto) 0.1 % Neut # (Auto) 11.52 H (1.40-6.50) K/uL Lymph # (Auto) 0.49 L (1.20-3.40) K/uL [place] # (Auto) 1.33 H (0.11-0.59) K/uL Eos # (Auto) 0.00 (0.00-0.50) K/uL Baso # (Auto) 0.02 (0.00-0.20) K/uL Immature Gran # (Auto) 0.10 (0.01-0.20) K/uL PT (9.0-12.0) Seconds INR (0.9-1.1) Sodium (136-145) mmol/L Potassium (3.5-5.1) mmol/L Chloride (98-107) mmol/L Carbon Dioxide (21-32) mmol/L Anion Gap (3-11) BUN (6-23) mg/dl Creatinine (0.6-1.4) mg/dl Est Cr Clr Drug Dosing ml/min Est GFR ( Amer) ml/min Est GFR (Non-Af Amer) ml/min BUN/Creatinine Ratio (10-20) Glucose (70-99(Fasting)) mg/dl Osmolality 257 L (280-300) mOsm/kg Lactate (0.4-2.0) mmol/L Calcium (8.6-10.3) mg/dl Magnesium (1.7-2.4) mg/dl Total Bilirubin (0.2-1.0) mg/dl Direct Bilirubin (0-0.2) mg/dl AST (13-39) U/L ALT (7-52) U/L Alkaline Phosphatase (34-104) U/L Total Creatine Kinase (30-223) U/L Troponin I High Sens (0-20) pg/ml Total Protein (6.0-8.3) gm/dl Albumin (3.4-5.0) gm/dl Procalcitonin (0-0.5) ng/ml TSH 1.020 (0.300-4.500) uIu/ml Urine Color Urine Appearance (Clear) Urine pH (4.5-7.5) Ur Specific [place] (1.000-1.030) Urine Protein (Negative) Urine Glucose (UA) (Negative) Urine Ketones (Negative) Urine Blood (Negative) Urine Nitrite (Negative) Urine Bilirubin (Negative) Urine Urobilinogen (Negative) Ur Leukocyte Esterase (Negative) Urine Osmolality (500-800) mOsm/kg Ur Random Sodium mmol/L Adenovirus (PCR) (NotDetected) B. pertussis DNA (PCR) (NotDetected) B.parapertussis DNA PCR (NotDetected) C. pneumoniae DNA (PCR) (NotDetected) Coronavirus OC43 (PCR) (NotDetected) Coronavirus HKU1 (PCR) (NotDetected) Coronavirus 229E (PCR) (NotDetected) SARS-CoV-2 (PCR) (NotDetected) Coronavirus NL63 (PCR) (NotDetected) Human Metapneumovir PCR (NotDetected) Influenza Type A (PCR) (NotDetected) Influenza Type B (PCR) (NotDetected) M. pneumoniae (PCR) (NotDetected) Parainfluenza 1 (PCR) (NotDetected) Parainfluenza 2 (PCR) (NotDetected) Parainfluenza 3 (PCR) (NotDetected) Parainfluenza 4 (PCR) (NotDetected) RSV (PCR) (NotDetected) Entero/Rhino (PCR) (NotDetected) 10/11/22 10/11/22 10/11/22 Range/Units 18:59 18:59 18:59 WBC (4.8-10.8) K/ul RBC (4.70-6.10) M/uL Hgb (14.0-18.0) g/dl Hct (42.0-52.0) % MCV (80.0-100.0) fL MCH (25.0-34.0) pg MCHC (32.0-36.0) g/dL RDW Std Deviation (36.4-46.3) fL RDW Coeff of Antony (11.5-14.5) % Plt Count (130-400) K/uL MPV (9.4-12.4) fL Immature Gran % (Auto) % Neut % (Auto) % Lymph % (Auto) % [place] % (Auto) % Eos % (Auto) % Baso % (Auto) % Neut # (Auto) (1.40-6.50) K/uL Lymph # (Auto) (1.20-3.40) K/uL [place] # (Auto) (0.11-0.59) K/uL Eos # (Auto) (0.00-0.50) K/uL Baso # (Auto) (0.00-0.20) K/uL Immature Gran # (Auto) (0.01-0.20) K/uL PT 10.9 (9.0-12.0) Seconds INR 1.0 (0.9-1.1) Sodium 124 L (136-145) mmol/L Potassium 3.6 (3.5-5.1) mmol/L Chloride 83 L (98-107) mmol/L Carbon Dioxide 30 (21-32) mmol/L Anion Gap 11 (3-11) BUN 16 (6-23) mg/dl Creatinine 0.67 (0.6-1.4) mg/dl Est Cr Clr Drug Dosing 66.6 ml/min Est GFR ( Amer) 118.5 ml/min Est GFR (Non-Af Amer) 102.3 ml/min BUN/Creatinine Ratio 23.9 H (10-20) Glucose 109 H (70-99(Fasting)) mg/dl Osmolality (280-300) mOsm/kg Lactate (0.4-2.0) mmol/L Calcium 9.4 (8.6-10.3) mg/dl Magnesium 1.8 (1.7-2.4) mg/dl Total Bilirubin 1.3 H (0.2-1.0) mg/dl Direct Bilirubin 0.3 H (0-0.2) mg/dl AST 22 (13-39) U/L ALT 14 (7-52) U/L Alkaline Phosphatase 93 (34-104) U/L Total Creatine Kinase 17 L (30-223) U/L Troponin I High Sens 7.4 (0-20) pg/ml Total Protein 7.3 (6.0-8.3) gm/dl Albumin 3.3 L (3.4-5.0) gm/dl Procalcitonin 0.52 H (0-0.5) ng/ml TSH (0.300-4.500) uIu/ml Urine Color Urine Appearance (Clear) Urine pH (4.5-7.5) Ur Specific [place] (1.000-1.030) Urine Protein (Negative) Urine Glucose (UA) (Negative) Urine Ketones (Negative) Urine Blood (Negative) Urine Nitrite (Negative) Urine Bilirubin (Negative) Urine Urobilinogen (Negative) Ur Leukocyte Esterase (Negative) Urine Osmolality (500-800) mOsm/kg Ur Random Sodium mmol/L Adenovirus (PCR) (NotDetected) B. pertussis DNA (PCR) (NotDetected) B.parapertussis DNA PCR (NotDetected) C. pneumoniae DNA (PCR) (NotDetected) Coronavirus OC43 (PCR) (NotDetected) Coronavirus HKU1 (PCR) (NotDetected) Coronavirus 229E (PCR) (NotDetected) SARS-CoV-2 (PCR) (NotDetected) Coronavirus NL63 (PCR) (NotDetected) Human Metapneumovir PCR (NotDetected) Influenza Type A (PCR) (NotDetected) Influenza Type B (PCR) (NotDetected) M. pneumoniae (PCR) (NotDetected) Parainfluenza 1 (PCR) (NotDetected) Parainfluenza 2 (PCR) (NotDetected) Parainfluenza 3 (PCR) (NotDetected) Parainfluenza 4 (PCR) (NotDetected) RSV (PCR) (NotDetected) Entero/Rhino (PCR) (NotDetected) 10/11/22 10/11/22 10/11/22 Range/Units 18:59 19:14 21:59 WBC (4.8-10.8) K/ul RBC (4.70-6.10) M/uL Hgb (14.0-18.0) g/dl Hct (42.0-52.0) % MCV (80.0-100.0) fL MCH (25.0-34.0) pg MCHC (32.0-36.0) g/dL RDW Std Deviation (36.4-46.3) fL RDW Coeff of Antony (11.5-14.5) % Plt Count (130-400) K/uL MPV (9.4-12.4) fL Immature Gran % (Auto) % Neut % (Auto) % Lymph % (Auto) % [place] % (Auto) % Eos % (Auto) % Baso % (Auto) % Neut # (Auto) (1.40-6.50) K/uL Lymph # (Auto) (1.20-3.40) K/uL [place] # (Auto) (0.11-0.59) K/uL Eos # (Auto) (0.00-0.50) K/uL Baso # (Auto) (0.00-0.20) K/uL Immature Gran # (Auto) (0.01-0.20) K/uL PT (9.0-12.0) Seconds INR (0.9-1.1) Sodium (136-145) mmol/L Potassium (3.5-5.1) mmol/L Chloride (98-107) mmol/L Carbon Dioxide (21-32) mmol/L Anion Gap (3-11) BUN (6-23) mg/dl Creatinine (0.6-1.4) mg/dl Est Cr Clr Drug Dosing ml/min Est GFR ( Amer) ml/min Est GFR (Non-Af Amer) ml/min BUN/Creatinine Ratio (10-20) Glucose (70-99(Fasting)) mg/dl Osmolality (280-300) mOsm/kg Lactate 1.8 (0.4-2.0) mmol/L Calcium (8.6-10.3) mg/dl Magnesium (1.7-2.4) mg/dl Total Bilirubin (0.2-1.0) mg/dl Direct Bilirubin (0-0.2) mg/dl AST (13-39) U/L ALT (7-52) U/L Alkaline Phosphatase (34-104) U/L Total Creatine Kinase (30-223) U/L Troponin I High Sens (0-20) pg/ml Total Protein (6.0-8.3) gm/dl Albumin (3.4-5.0) gm/dl Procalcitonin (0-0.5) ng/ml TSH (0.300-4.500) uIu/ml Urine Color Urine Appearance (Clear) Urine pH (4.5-7.5) Ur Specific [place] (1.000-1.030) Urine Protein (Negative) Urine Glucose (UA) (Negative) Urine Ketones (Negative) Urine Blood (Negative) Urine Nitrite (Negative) Urine Bilirubin (Negative) Urine Urobilinogen (Negative) Ur Leukocyte Esterase (Negative) Urine Osmolality 293 L (500-800) mOsm/kg Ur Random Sodium mmol/L Adenovirus (PCR) Not Detected (NotDetected) B. pertussis DNA (PCR) Not Detected (NotDetected) B.parapertussis DNA PCR Not Detected (NotDetected) C. pneumoniae DNA (PCR) Not Detected (NotDetected) Coronavirus OC43 (PCR) Not Detected (NotDetected) Coronavirus HKU1 (PCR) Not Detected (NotDetected) Coronavirus 229E (PCR) Not Detected (NotDetected) SARS-CoV-2 (PCR) DETECTED A* (NotDetected) Coronavirus NL63 (PCR) Not Detected (NotDetected) Human Metapneumovir PCR Not Detected (NotDetected) Influenza Type A (PCR) Not Detected (NotDetected) Influenza Type B (PCR) Not Detected (NotDetected) M. pneumoniae (PCR) Not Detected (NotDetected) Parainfluenza 1 (PCR) Not Detected (NotDetected) Parainfluenza 2 (PCR) Not Detected (NotDetected) Parainfluenza 3 (PCR) Not Detected (NotDetected) Parainfluenza 4 (PCR) Not Detected (NotDetected) RSV (PCR) Not Detected (NotDetected) Entero/Rhino (PCR) Not Detected (NotDetected) 10/11/22 10/11/22 Range/Units 21:59 21:59 WBC (4.8-10.8) K/ul RBC (4.70-6.10) M/uL Hgb (14.0-18.0) g/dl Hct (42.0-52.0) % MCV (80.0-100.0) fL MCH (25.0-34.0) pg MCHC (32.0-36.0) g/dL RDW Std Deviation (36.4-46.3) fL RDW Coeff of Antony (11.5-14.5) % Plt Count (130-400) K/uL MPV (9.4-12.4) fL Immature Gran % (Auto) % Neut % (Auto) % Lymph % (Auto) % [place] % (Auto) % Eos % (Auto) % Baso % (Auto) % Neut # (Auto) (1.40-6.50) K/uL Lymph # (Auto) (1.20-3.40) K/uL [place] # (Auto) (0.11-0.59) K/uL Eos # (Auto) (0.00-0.50) K/uL Baso # (Auto) (0.00-0.20) K/uL Immature Gran # (Auto) (0.01-0.20) K/uL PT (9.0-12.0) Seconds INR (0.9-1.1) Sodium (136-145) mmol/L Potassium (3.5-5.1) mmol/L Chloride (98-107) mmol/L Carbon Dioxide (21-32) mmol/L Anion Gap (3-11) BUN (6-23) mg/dl Creatinine (0.6-1.4) mg/dl Est Cr Clr Drug Dosing ml/min Est GFR ( Amer) ml/min Est GFR (Non-Af Amer) ml/min BUN/Creatinine Ratio (10-20) Glucose (70-99(Fasting)) mg/dl Osmolality (280-300) mOsm/kg Lactate (0.4-2.0) mmol/L Calcium (8.6-10.3) mg/dl Magnesium (1.7-2.4) mg/dl Total Bilirubin (0.2-1.0) mg/dl Direct Bilirubin (0-0.2) mg/dl AST (13-39) U/L ALT (7-52) U/L Alkaline Phosphatase (34-104) U/L Total Creatine Kinase (30-223) U/L Troponin I High Sens (0-20) pg/ml Total Protein (6.0-8.3) gm/dl Albumin (3.4-5.0) gm/dl Procalcitonin (0-0.5) ng/ml TSH (0.300-4.500) uIu/ml Urine Color Yellow Urine Appearance Clear (Clear) Urine pH 5.5 (4.5-7.5) Ur Specific [place] 1.039 H (1.000-1.030) Urine Protein Negative (Negative) Urine Glucose (UA) Negative (Negative) Urine Ketones Negative (Negative) Urine Blood Negative (Negative) Urine Nitrite Negative (Negative) Urine Bilirubin Negative (Negative) Urine Urobilinogen Negative (Negative) Ur Leukocyte Esterase Negative (Negative) Urine Osmolality (500-800) mOsm/kg Ur Random Sodium 14 mmol/L Adenovirus (PCR) (NotDetected) B. pertussis DNA (PCR) (NotDetected) B.parapertussis DNA PCR (NotDetected) C. pneumoniae DNA (PCR) (NotDetected) Coronavirus OC43 (PCR) (NotDetected) Coronavirus HKU1 (PCR) (NotDetected) Coronavirus 229E (PCR) (NotDetected) SARS-CoV-2 (PCR) (NotDetected) Coronavirus NL63 (PCR) (NotDetected) Human Metapneumovir PCR (NotDetected) Influenza Type A (PCR) (NotDetected) Influenza Type B (PCR) (NotDetected) M. pneumoniae (PCR) (NotDetected) Parainfluenza 1 (PCR) (NotDetected) Parainfluenza 2 (PCR) (NotDetected) Parainfluenza 3 (PCR) (NotDetected) Parainfluenza 4 (PCR) (NotDetected) RSV (PCR) (NotDetected) Entero/Rhino (PCR) (NotDetected) Administered Medications Discontinued Medications Albuterol (Albut/Ipratrop 3mg/0.5mg Neb 3 Ml Vial) 12 ml NEB ONE ONE; Protocol Stop: 10/11/22 18:51 Last Admin: 10/11/22 19:33 Dose: 12 ml Documented By: EML Ceftriaxone Sodium (Rocephin) 2,000 mg in 70 mls @ 140 mls/hr IV NOW STA Stop: 10/11/22 19:17 Last Infusion: 10/11/22 19:55 Dose: 0 mls/hr Documented By: STORE CASHIER Admin: 10/11/22 19:25 Dose: 140 mls/hr Documented By: STORE CASHIER Azithromycin 500 mg/ Dextrose 255 mls @ 127.5 mls/hr IV NOW STA Stop: 10/11/22 20:47 Last Infusion: 10/11/22 22:15 Dose: 0 mls/hr Documented By: STORE CASHIER Admin: 10/11/22 20:11 Dose: 127.5 mls/hr Documented By: STORE CASHIER Sodium Chloride (Nss 1000ml) 1,000 mls @ 999 mls/hr IV .Q1H1M ONE Stop: 10/11/22 19:54 Last Infusion: 10/11/22 20:10 Dose: 0 mls/hr Documented By: STORE CASHIER Admin: 10/11/22 19:07 Dose: 999 mls/hr Documented By: STORE CASHIER Magnesium Sulfate/Dextrose (Magnesium Sulfate / D5w) 1 gm in 100 mls @ 50 ml s/hr IV ONE ONE Stop: 10/11/22 22:59 Last Admin: 10/11/22 22:36 Dose: 50 mls/hr Documented By: STORE CASHIER Thiamine HCl 100 mg/ Syringe 10 mls @ 2 mls/min IV NOW STA Stop: 10/11/22 21:00 Last Admin: 10/11/22 22:36 Dose: 2 mls/min Documented By: STORE CASHIER Ioversol (Ioversol 350 Mg 125ml Prefilled Syringe) 117 ml IV ONCE ONE Stop: 10/11/22 20:25 Last Admin: 10/11/22 20:25 Dose: 117 ml Documented By: ZULEIKAK Methylprednisolone (Methylprednisolone 40 Mg/Ml Vial) 40 mg IV NOW STA Stop: 10/11/22 18:51 Last Admin: 10/11/22 19:27 Dose: 40 mg Documented By: STORE CASHIER Imaging Data Radiologist's Impression: Chest X-Ray 10/11/22 18:48 XR chest 1V portable HISTORY: Sepsis COMPARISON: Chest 01/13/2022. FINDINGS: No pneumothorax. No pleural effusions. The heart is normal in size. The right lung is clear. Emphysema again noted. Interval development of abnormal left hilar/perihilar density with mild volume loss within left hemithorax and slight left mediastinal shift. This is consistent with a left upper lobe collapse. This could be due to a central obstructing mass or mucous plugging. Therefore, follow-up dedicated contrast-enhanced chest CT is recommended for further evaluation. IMPRESSION: Interval development of an abnormal left hilar/perihilar density with mild volume loss within left hemithorax and slight left mediastinal shift. This is consistent with a left upper lobe collapse. This could be due to a central obstructing mass or mucous plugging. Therefore, follow-up dedicated contrast- enhanced chest CT is recommended for further evaluation. ACT 112: Negative or not required by law. Electronically signed by: Reinaldo Snyder M.D. 10/11/2022 7:44 PM Chest CTA 10/11/22 19:40 Exam(s): CTA CHEST IV Amt: OPTIRAY [id number] EXAM: CT Angiography Chest With Intravenous Contrast CLINICAL HISTORY: Reason for exam: PE. TECHNIQUE: Axial computed tomographic angiography images of the chest with intravenous contrast. CTDI is 30 mGy and DLP is 318.19 mGy-cm. Automated exposure control was utilized for the study. A dose lowering technique was utilized adhering to the principles of ALARA. MIP reconstructed images were created and reviewed. COMPARISON: 01/13/2022 FINDINGS: Pulmonary arteries: No pulmonary embolism. Aorta: No acute findings. Normal caliber. No dissection. 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 Lungs: Consolidation and collapse throughout the left upper. Obstruction of the bronchi to the left upper lobe and lingula. Narrowing of the left lower lobe bronchus and scattered tree-in-bud nodularity throughout the left lower lobe. The right lung is clear. Pleural space: Unremarkable. Heart: Unremarkable. Bones/joints: No acute fracture. Soft tissues: Unremarkable. Lymph nodes: Unremarkable. IMPRESSION: 1. No pulmonary embolism. 2. Consolidation and collapse throughout the left upper. Obstruction of the bronchi to the left upper lobe and lingula. Narrowing of the left lower lobe bronchus and scattered tree-in-bud nodularity throughout the left lower lobe. Findings are suggestive of pneumonia. An obstructing potential endobronchial mass could also be present. Consider bronchoscopy. 3. 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 Electronically signed by: Ric Garcia MD 10/11/22 21:55 PM Discharge Plan Visit Data Chief Complaint: Chest Pain Stated Complaint: CHEST PAIN, DIFFICULTY BREATHING ED Provider: Manjit Garza Discharge Problem: COPD exacerbation, COVID-19, Acute hyponatremia, Pneumonia Forms Stand Alone Forms: [employer] Prescriptions Prescriptions: No Action fluticasone propion-salmeterol [Advair Diskus] 100-50 mcg/dose blister with device 1 inh inhalation DAILY Qty: 60 0RF Rx Instructions: takes as needed tiotropium bromide 18 mcg capsule, w/inhalation device 1 cap inhalation DAILY Qty: 2 0RF Rx Instructions: puncture 1 cap using device; one dose = 2 inhalations only takes as needed amlodipine 5 mg tablet 5 mg PO QAM Qty: 30 1RF albuterol sulfate 90 mcg/actuation Hfa Aerosol Inhaler 2 puff INHALATION Q6H PRN (Reason: Shortness Of Breath) Qty: 8.5 1RF Referrals Referrals: Macario Rajput MD [Primary Care Provider] -
[2022-10-11] MEDS ORDERED: SODIUM CHLORIDE 0.9% 1,000 ML IV ONE (18:54)
[2022-10-11 19:29] LABS: Basophils # (auto) 0.02 K/uL (0.00-0.20); Basophils % (auto) 0.1 %; Hematocrit (blood only) 37.1 % (42.0-52.0); Hemoglobin 13.3 g/dl (14.0-18.0); Immature Granulocytes % (auto) 0.7 %; Lymphocytes # (auto) 0.49 K/uL (1.20-3.40); Lymphocytes % (auto) 3.6 %; Mean Corpuscular Hemoglobin 32.9 pg (25.0-34.0); Mean Corpuscular Hgb Conc 35.8 g/dL (32.0-36.0); Mean Corpuscular Volume 91.8 fL (80.0-100.0); Mean Platelet Volume 9.8 fL (9.4-12.4); Monocytes # (auto) 1.33 K/uL (0.11-0.59); Monocytes % (auto) 9.9 %; Neutrophils # (auto) 11.52 K/uL (1.40-6.50); Neutrophils % (auto) 85.7 %; Platelet Count 361 K/uL (130-400); RDW Coefficient of Variation 12.3 % (11.5-14.5); RDW Standard Deviation 41.4 fL (36.4-46.3); Red Blood Count 4.04 M/uL (4.70-6.10); White Blood Count 13.46 K/ul (4.8-10.8)
--- NOTE | 2022-10-11 19:46 | XRay Report ---
XR chest 1V portable HISTORY: Sepsis COMPARISON: Chest 01/13/2022. FINDINGS: No pneumothorax. No pleural effusions. The heart is normal in size. The right lung is clear . Emphysema again noted. Interval development of abnormal left hilar/perihilar density with mild volu me loss within left hemithorax and slight left mediastinal shift. This is consistent with a left uppe r lobe collapse. This could be due to a central obstructing mass or mucous plugging. Therefore, follo w-up dedicated contrast-enhanced chest CT is recommended for further evaluation. IMPRESSION: Interval development of an abnormal left hilar/perihilar density with mild volume loss within left he mithorax and slight left mediastinal shift. This is consistent with a left upper lobe collapse. This could be due to a central obstructing mass or mucous plugging. Therefore, follow-up dedicated contras t-enhanced chest CT is recommended for further evaluation. ACT 112: Negative or not required by law. Electronically signed by: Reinaldo Snyder M.D. 10/11/2022 7:44 PM
[2022-10-11 19:52] LABS: Albumin Level 3.3 gm/dl (3.4-5.0); BUN Creatinine Ratio 23.9 (10-20); Bilirubin Direct 0.3 mg/dl (0-0.2); Bilirubin,Total 1.3 mg/dl (0.2-1.0); Calcium 9.4 mg/dl (8.6-10.3); Creatinine Clr Calc Pharmacy 66.6 ml/min; Est GFR (African American) 118.5 ml/min; Est GFR (Non-African American) 102.3 ml/min; Magnesium 1.8 mg/dl (1.7-2.4); Potassium 3.6 mmol/L (3.5-5.1); Total Protein 7.3 gm/dl (6.0-8.3)
[2022-10-11 19:56] LABS: Troponin I High Sensitivity 7.4 pg/ml (0-20)
[2022-10-11 20:06] LABS: Adenovirus PCR Not Detected (NotDetected); Bordetella parapertussis PCR Not Detected (NotDetected); Bordetella pertussis PCR Not Detected (NotDetected); Chlamydia pneumoniae PCR Not Detected (NotDetected); Coronavirus 229E PCR Not Detected (NotDetected); Coronavirus HKU1 PCR Not Detected (NotDetected); Coronavirus NL63 PCR Not Detected (NotDetected); Coronavirus OC43PCR Not Detected (NotDetected); Human Metapneumovirus PCR Not Detected (NotDetected); Influenza A PCR Not Detected (NotDetected); Influenza B PCR Not Detected (NotDetected); Mycoplasma pneumoniae PCR Not Detected (NotDetected); Parainfluenza Virus 1 PCR Not Detected (NotDetected); Parainfluenza Virus 2 PCR Not Detected (NotDetected); Parainfluenza Virus 3 PCR Not Detected (NotDetected); Parainfluenza Virus 4 PCR Not Detected (NotDetected); Respiratory Syncytial VirusPCR Not Detected (NotDetected); Rhinovirus/Enterovirus PCR Not Detected (NotDetected)
[2022-10-11 20:08] LABS: Prothrombin Time 10.9 Seconds (9.0-12.0)
[2022-10-11 20:09] LABS: Coronavirus CoV-2 (COVID19)PCR DETECTED (NotDetected)
[2022-10-11] MEDS ORDERED: IOVERSOL 350 MG 125mL Prefilled Syringe IV ONE (20:24)
[2022-10-11] MEDS ORDERED: THIAMINE HCL 100 MG in SYRINGE 9 ML IV STA (20:56)
[2022-10-11] MEDS ORDERED: MAGNESIUM SULFATE / D5W 1 GM/100 ML BAG IV ONE (21:00)
--- NOTE | 2022-10-11 21:56 | CT Scan Report ---
Exam(s): CTA CHEST IV Amt: OPTIRAY 350 117ML EXAM: CT Angiography Chest With Intravenous Contrast CLINICAL HISTORY: Reason for exam: PE. TECHNIQUE: Axial computed tomographic angiography images of the chest with intravenous contrast. CTDI is 30 mGy and DLP is 318.19 mGy-cm. Automated exposure control was utilized for the study. A dose lowering technique was utilized adhering to the principles of ALARA. MIP reconstructed images were created and reviewed. COMPARISON: 01/13/2022 FINDINGS: Pulmonary arteries: No pulmonary embolism. Aorta: No acute findings. Normal caliber. No dissection. 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 Lungs: Consolidation and collapse throughout the left upper. Obstruction of the bronchi to the left upper lobe and lingula. Narrowing of the left lower lobe bronchus and scattered tree-in-bud nodularity throughout the left lower lobe. The right lung is clear. Pleural space: Unremarkable. Heart: Unremarkable. Bones/joints: No acute fracture. Soft tissues: Unremarkable. Lymph nodes: Unremarkable. IMPRESSION: 1. No pulmonary embolism. 2. Consolidation and collapse throughout the left upper. Obstruction of the bronchi to the left upper lobe and lingula. Narrowing of the left lower lobe bronchus and scattered tree-in-bud nodularity throughout the left lower lobe. Findings are suggestive of pneumonia. An obstructing potential endobronchial mass could also be present. Consider bronchoscopy. 3. 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 Electronically signed by: Ric Garcia MD 10/11/22 21:55 PM
[2022-10-11 22:30] LABS: Appearance Urine Clear (Clear); Bilirubin Urine Negative (Negative); Blood Urine Negative (Negative); Color Urine Yellow; Glucose Urine UA Negative (Negative); Ketones Urine Negative (Negative); Leukocyte Esterase Urine Negative (Negative); Nitrite Urine Negative (Negative); Protein Urine Negative (Negative); Specific Gravity Urine 1.039 (1.000-1.030); Urobilinogen Urine Negative (Negative); pH Urine 5.5 (4.5-7.5)
--- NOTE | 2022-10-11 23:23 | History & Physical Report ---
Date of Service October 11, 2022 Assessment & Plan (1) Sepsis: Plan: SIRS secondary to CAP, COVID-19 pneumonia, possible postobstructive pneumonia on CT imaging Severe COVID-19 pneumonia given O2 sats less than 94 at the ER Mild COPD exacerbation secondary to above HTN, stable hx PVD Acute on chronic hyponatremia secondary to illness, possible alcohol abuse, patient denies recent EtOH intake (patient claims last drink was 6 months ago) patient noted to have bilateral hand tremors on exam. history of torsades de pointes chronic anemia, hemoglobin at baseline Hyperglycemia likely secondary to prediabetes, hemoglobin A1c of 5.7 last year malnutrition RE low BMI ongoing tobacco abuse. Medical telemetry CS, Ceftriaxone, Doxycycline Decadron course for severe COVID-19 pneumonia Pulmonary consult Re: Abnormal CT chest, possible postobstructive pneumonia Recheck serum sodium after initial bolus given at the ER Hyponatremia work-up, fluid restriction May need nephrology evaluation SONI S, DT precautions Nutrition consult RE low BMI Nicotine patch as needed Full code Attempted to contact patient's brother (Mr. Taz Romero, contact #[phone]) gave update regarding patient's care. No answer, left message for call back. Text document was generated using V[employer]yo voice recognition software. It may contain grammatical or spelling errors. Kindly contact undersigned for clarification of any documentation item in question. History of Present Illness Chief Complaint: Worsening cough, shortness of breath Primary Care Provider: Macario Rajput MD History obtained from patient and records. Medical history significant for HTN, PVD, COPD, chronic hyponatremia, history of torsades de pointes,chronic anemia (baseline hemoglobin of 13), history alcohol abuse, ongoing tobacco abuse. Last confinement January 2022 for COPD exacerbation and alcohol abuse. 3 weeks history of cough symptoms productive of clear sputum. Pleuritic chest pain with worsening shortness of breath. Denies aspiration. No known sick contacts. Patient has not received COVID-19 vaccination. Poor appetite. Ten pound weight loss over the last 6 months as per patient. Patient received Solu-Medrol, Ceftriaxone, and Azithromycin at the ER for sepsis. Lowest O2 sats at the ER 91 on room air. MEDICAL HISTORY: As above. SURGERIES: He has had tonsillectomy, adenoidectomy, dental surgery. 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 Allergies Allergy/AdvReac Type Severity Reaction Status Date / Time No Known Allergies Allergy Unverified 10/11/22 21:09 Home Medications Medication Instructions Recorded Confirmed Type fluticasone 100 mcg-salmeterol 50 1 inh inhalation DAILY #60 ea 10/14/21 10/11/22 Rx mcg/dose blistr powdr for inhalation (Advair Diskus) tiotropium bromide 18 mcg capsule 1 cap inhalation DAILY #2 10/14/21 10/11/22 Rx with inhalation device inhalations albuterol sulfate 90 mcg/actuation 2 puff inhalation Q6H PRN 01/16/22 10/11/22 Rx aerosol inhaler Shortness Of Breath #8.5 grams amlodipine 5 mg tablet 5 mg PO QAM #30 tabs 01/16/22 10/11/22 Rx Past Med/Surg History Medical History Atherosclerosis of lower extremity with intermittent claudication "right leg" COPD (chronic obstructive pulmonary disease) History of torsades de pointes Hypertension Tobacco use disorder Surgical History History of dental surgery S/P tonsillectomy and adenoidectomy Family History Mother Diabetes Heart disease Social History Smoking Status: Current every day smoker Tobacco Type: Cigarettes Cigarettes Per Day: 1 ppd; Second Hand Exposure: No; Do You Dip or Chew Tobacco: No; Tobacco Cessation Education Requested by Patient: No Hx Alcohol Use: Yes Alcohol type: beer and hard liquor Hx Substance Use: No Preferred Language: Swedish Communication Ability: Effective Harness Tier Required: No Beliefs That Will Affect Care: None Current Living Situation: Alone Other Information That Helps Us Care for You: No Feels Safe at Home: Yes Safety Concerns: Feels Safe At This Time Assistive Devices: Cane, Denture - Upper, Denture - Lower and Glasses Review of Systems Review of Systems: As per HPI, all other systems reviewed and negative Physical Exam Physical Exam: GENERAL: comfortable, underweight, tremulous, no respiratory distress SKIN: Normal color, warm HEENT: [place] palpebral conjunctivae, no ptosis, dry buccal mucosa NECK : Supple, no tenderness CHEST : Decreased breath sounds,no expiratory wheezes, no tenderness HEART : RRR, no obvious murmurs ABDOMEN: no distention, nontender EXTREMITIES : No LE swelling/tenderness, no other conspicuous deformities noted NEUROLOGIC : Coherent, no facial asymmetry, involuntary hand tremors noted Results & Data Results & Data Vital Signs (Past 12 Hours) Vital Signs Temp Pulse Pulse Resp BP BP Pulse Ox 10/11/22 22:56 89 10/11/22 20:10 99 H 20 100 10/11/22 20:00 90 19 100 10/11/22 20:00 145/92 H 10/11/22 19:50 91 H 13 100 10/11/22 19:45 153/92 H 10/11/22 19:45 90 17 98 10/11/22 19:40 87 20 92 10/11/22 19:30 94 H 17 10/11/22 19:30 142/90 H 10/11/22 19:20 91 H 23 90 10/11/22 19:20 132/89 10/11/22 19:10 104 H 22 98 10/11/22 19:00 97 10/11/22 19:00 136/91 10/11/22 18:50 120 H 24 96 10/11/22 18:49 118 H 21 93 10/11/22 19:37 87 18 100 10/11/22 18:49 120 H 10/11/22 18:34 97 10/11/22 18:48 36.9 C 111 H 24 139/91 94 10/11/22 18:48 95 10/11/22 18:49 36.9 C 120 H 26 H 139/91 97 10/11/22 18:36 36.6 C 119 H 16 132/83 93 O2 Del Method 10/11/22 22:56 10/11/22 20:10 10/11/22 20:00 10/11/22 20:00 10/11/22 19:50 10/11/22 19:45 10/11/22 19:45 10/11/22 19:40 10/11/22 19:30 10/11/22 19:30 10/11/22 19:20 10/11/22 19:20 10/11/22 19:10 10/11/22 19:00 10/11/22 19:00 10/11/22 18:50 10/11/22 18:49 10/11/22 19:37 Room Air 10/11/22 18:49 10/11/22 18:34 Room Air 10/11/22 18:48 Room Air 10/11/22 18:48 Room Air 10/11/22 18:49 Room Air 10/11/22 18:36 Laboratory Results Laboratory Results WBC 13.46 K/ul (4.8-10.8) H 10/11/22 18:59 RBC 4.04 M/uL (4.70-6.10) L 10/11/22 18:59 Hgb 13.3 g/dl (14.0-18.0) L 10/11/22 18:59 Hct 37.1 % (42.0-52.0) L 10/11/22 18:59 MCV 91.8 fL (80.0-100.0) 10/11/22 18:59 MCH 32.9 pg (25.0-34.0) 10/11/22 18:59 MCHC 35.8 g/dL (32.0-36.0) 10/11/22 18:59 RDW Std Deviation 41.4 fL (36.4-46.3) 10/11/22 18:59 RDW Coeff of Antony 12.3 % (11.5-14.5) 10/11/22 18:59 Plt Count 361 K/uL (130-400) 10/11/22 18:59 MPV 9.8 fL (9.4-12.4) 10/11/22 18:59 Immature Gran % (Auto) 0.7 % 10/11/22 18:59 Neut % (Auto) 85.7 % 10/11/22 18:59 Lymph % (Auto) 3.6 % 10/11/22 18:59 [place] % (Auto) 9.9 % 10/11/22 18:59 Eos % (Auto) 0.0 % 10/11/22 18:59 Baso % (Auto) 0.1 % 10/11/22 18:59 Neut # (Auto) 11.52 K/uL (1.40-6.50) H 10/11/22 18:59 Lymph # (Auto) 0.49 K/uL (1.20-3.40) L 10/11/22 18:59 [place] # (Auto) 1.33 K/uL (0.11-0.59) H 10/11/22 18:59 Eos # (Auto) 0.00 K/uL (0.00-0.50) 10/11/22 18:59 Baso # (Auto) 0.02 K/uL (0.00-0.20) 10/11/22 18:59 Immature Gran # (Auto) 0.10 K/uL (0.01-0.20) 10/11/22 18:59 PT 10.9 Seconds (9.0-12.0) 10/11/22 18:59 INR 1.0 (0.9-1.1) 10/11/22 18:59 Sodium 124 mmol/L (136-145) L 10/11/22 18:59 Potassium 3.6 mmol/L (3.5-5.1) 10/11/22 18:59 Chloride 83 mmol/L (98-107) L 10/11/22 18:59 Carbon Dioxide 30 mmol/L (21-32) 10/11/22 18:59 Anion Gap 11 (3-11) 10/11/22 18:59 BUN 16 mg/dl (6-23) 10/11/22 18:59 Creatinine 0.67 mg/dl (0.6-1.4) 10/11/22 18:59 Est Cr Clr Drug Dosing 66.6 ml/min 10/11/22 18:59 Est GFR ( Amer) 118.5 ml/min 10/11/22 18:59 Est GFR (Non-Af Amer) 102.3 ml/min 10/11/22 18:59 BUN/Creatinine Ratio 23.9 (10-20) H 10/11/22 18:59 Glucose 109 mg/dl (70-99(Fasting)) H 10/11/22 18:59 Osmolality 257 mOsm/kg (280-300) L 10/11/22 18:48 Lactate 1.8 mmol/L (0.4-2.0) 10/11/22 19:14 Calcium 9.4 mg/dl (8.6-10.3) 10/11/22 18:59 Magnesium 1.8 mg/dl (1.7-2.4) 10/11/22 18:59 Total Bilirubin 1.3 mg/dl (0.2-1.0) H 10/11/22 18:59 Direct Bilirubin 0.3 mg/dl (0-0.2) H 10/11/22 18:59 AST 22 U/L (13-39) 10/11/22 18:59 ALT 14 U/L (7-52) 10/11/22 18:59 Alkaline Phosphatase 93 U/L (34-104) 10/11/22 18:59 Total Creatine Kinase 17 U/L (30-223) L 10/11/22 18:59 Troponin I High Sens 7.4 pg/ml (0-20) 10/11/22 18:59 Total Protein 7.3 gm/dl (6.0-8.3) 10/11/22 18:59 Albumin 3.3 gm/dl (3.4-5.0) L 10/11/22 18:59 Procalcitonin 0.52 ng/ml (0-0.5) H 10/11/22 18:59 TSH 1.020 uIu/ml (0.300-4.500) 10/11/22 18:48 Urine Color Yellow 10/11/22 21:59 Urine Appearance Clear (Clear) 10/11/22 21:59 Urine pH 5.5 (4.5-7.5) 10/11/22 21:59 Ur Specific [place] 1.039 (1.000-1.030) H 10/11/22 21:59 Urine Protein Negative (Negative) 10/11/22 21:59 Urine Glucose (UA) Negative (Negative) 10/11/22 21:59 Urine Ketones Negative (Negative) 10/11/22 21:59 Urine Blood Negative (Negative) 10/11/22 21:59 Urine Nitrite Negative (Negative) 10/11/22 21:59 Urine Bilirubin Negative (Negative) 10/11/22 21:59 Urine Urobilinogen Negative (Negative) 10/11/22 21:59 Ur Leukocyte Esterase Negative (Negative) 10/11/22 21:59 Urine Osmolality 293 mOsm/kg (500-800) L 10/11/22 21:59 Ur Random Sodium 14 mmol/L 10/11/22 21:59 Adenovirus (PCR) Not Detected (NotDetected) 10/11/22 18:59 B. pertussis DNA (PCR) Not Detected (NotDetected) 10/11/22 18:59 B.parapertussis DNA PCR Not Detected (NotDetected) 10/11/22 18:59 C. pneumoniae DNA (PCR) Not Detected (NotDetected) 10/11/22 18:59 Coronavirus OC43 (PCR) Not Detected (NotDetected) 10/11/22 18:59 Coronavirus HKU1 (PCR) Not Detected (NotDetected) 10/11/22 18:59 Coronavirus 229E (PCR) Not Detected (NotDetected) 10/11/22 18:59 SARS-CoV-2 (PCR) DETECTED (NotDetected) A* 10/11/22 18:59 Coronavirus NL63 (PCR) Not Detected (NotDetected) 10/11/22 18:59 Human Metapneumovir PCR Not Detected (NotDetected) 10/11/22 18:59 Influenza Type A (PCR) Not Detected (NotDetected) 10/11/22 18:59 Influenza Type B (PCR) Not Detected (NotDetected) 10/11/22 18:59 M. pneumoniae (PCR) Not Detected (NotDetected) 10/11/22 18:59 Parainfluenza 1 (PCR) Not Detected (NotDetected) 10/11/22 18:59 Parainfluenza 2 (PCR) Not Detected (NotDetected) 10/11/22 18:59 Parainfluenza 3 (PCR) Not Detected (NotDetected) 10/11/22 18:59 Parainfluenza 4 (PCR) Not Detected (NotDetected) 10/11/22 18:59 RSV (PCR) Not Detected (NotDetected) 10/11/22 18:59 Entero/Rhino (PCR) Not Detected (NotDetected) 10/11/22 18:59 Impressions Chest X-Ray 10/11/22 18:48 XR chest 1V portable HISTORY: Sepsis COMPARISON: Chest 01/13/2022. FINDINGS: No pneumothorax. No pleural effusions. The heart is normal in size. The right lung is clear. Emphysema again noted. Interval development of abnormal left hilar/perihilar density with mild volume loss within left hemithorax and slight left mediastinal shift. This is consistent with a left upper lobe collapse. This could be due to a central obstructing mass or mucous plugging. Therefore, follow-up dedicated contrast-enhanced chest CT is recommended for further evaluation. IMPRESSION: Interval development of an abnormal left hilar/perihilar density with mild volume loss within left hemithorax and slight left mediastinal shift. This is consistent with a left upper lobe collapse. This could be due to a central obstructing mass or mucous plugging. Therefore, follow-up dedicated contrast- enhanced chest CT is recommended for further evaluation. ACT 112: Negative or not required by law. Electronically signed by: Reinaldo Snyder M.D. 10/11/2022 7:44 PM Chest CTA 10/11/22 19:40 Exam(s): CTA CHEST IV Amt: OPTIRAY 350 117ML EXAM: CT Angiography Chest With Intravenous Contrast CLINICAL HISTORY: Reason for exam: PE. TECHNIQUE: Axial computed tomographic angiography images of the chest with intravenous contrast. CTDI is 30 mGy and DLP is 318.19 mGy-cm. Automated exposure control was utilized for the study. A dose lowering technique was utilized adhering to the principles of ALARA. MIP reconstructed images were created and reviewed. COMPARISON: 01/13/2022 FINDINGS: Pulmonary arteries: No pulmonary embolism. Aorta: No acute findings. Normal caliber. No dissection. 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 Lungs: Consolidation and collapse throughout the left upper. Obstruction of the bronchi to the left upper lobe and lingula. Narrowing of the left lower lobe bronchus and scattered tree-in-bud nodularity throughout the left lower lobe. The right lung is clear. Pleural space: Unremarkable. Heart: Unremarkable. Bones/joints: No acute fracture. Soft tissues: Unremarkable. Lymph nodes: Unremarkable. IMPRESSION: 1. No pulmonary embolism. 2. Consolidation and collapse throughout the left upper. Obstruction of the bronchi to the left upper lobe and lingula. Narrowing of the left lower lobe bronchus and scattered tree-in-bud nodularity throughout the left lower lobe. Findings are suggestive of pneumonia. An obstructing potential endobronchial mass could also be present. Consider bronchoscopy. 3. 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 Electronically signed by: Ric Garcia MD 10/11/22 21:55 PM Diagnostic Findings EKG as per my interpretation :Rate 110, sinus tachycardia, LAD, LAFB, septal infarct, T wave inversion in septal leads
[2022-10-11] MEDS ORDERED: GABAPENTIN 800MG ALCOHOL WITHDRAWAL LOAD PO STA (23:33)
[2022-10-11] MEDS ORDERED: Ativan IV Alcohol Withdrawal--Active Protocol IV PRN (23:33)
[2022-10-11] MEDS ORDERED: LORazepam 2 MG/1 ML VIAL IV PRN ×3 (23:33)
[2022-10-11] MEDS ORDERED: GABAPENTIN 400 MG CAP PO STA (23:36)
[2022-10-12] MEDS ORDERED: PROMETHAZINE HCL 6.25 MG in SODIUM CHLORIDE 0.9% 50 ML IV PRN (01:36)
[2022-10-12] MEDS ORDERED: ACETAMINOPHEN 325 MG TAB PO PRN (01:36)
[2022-10-12] MEDS ORDERED: XOPENEX/ATROVENT 1.25mg/0.5MG NEB COMBO NEB SCH (01:36)
[2022-10-12] MEDS ORDERED: LEVALBUTEROL 1.25 MG/3 ML NEB NEB SCH (01:45)
[2022-10-12] MEDS ORDERED: IPRATROPIUM BROMIDE NEB SOLN 0.02% 2.5 ML VIAL INH SCH (01:45)
[2022-10-12] MEDS ORDERED: NSS + 20MEQ KCL 20 MEQ/1,000 ML BAG IV ONE (02:00)
[2022-10-12] MEDS: HEPARIN SOD 5,000 UNIT/0.5 ML VIAL SQ SCH ×3 (06:00→20:32)
[2022-10-12] MEDS ORDERED: IPRATROPIUM BROMIDE HFA INHALER INH SCH (07:00)
[2022-10-12] MEDS ORDERED: LEVALBUTEROL TARTRATE 15 GM HFA.AER.AD INH SCH (07:00)
[2022-10-12] MEDS: FOLIC ACID 1 MG TAB PO SCH (08:27)
[2022-10-12] MEDS: GABAPENTIN 400 MG CAP PO SCH ×4 (08:28→20:33)
[2022-10-12] MEDS: amLODIPine BESYLATE 5 MG TAB PO SCH (08:28)
[2022-10-12] MEDS: FLUTICASONE/VILANTEROL 100/25MCG 14 PUFFS/INHALER INH SCH (08:29)
[2022-10-12] MEDS: MULTIVITAMIN TAB PO SCH (08:29)
[2022-10-12] MEDS: UMECLIDINIUM BROMIDE 62.5MCG/BLISTER 7 PUFFS/INHALER INH SCH (08:29)
[2022-10-12] MEDS: DOXYCYCLINE HYCLATE 100 MG CAP PO SCH ×2 (08:29→20:38)
[2022-10-12] MEDS: THIAMINE HCL 100 MG TAB PO SCH (08:29)
[2022-10-12] MEDS: dexAMETHasone 6 MG in SYRINGE 0 ML IV SCH (08:35)
[2022-10-12 08:40] LABS: Hematocrit (blood only) 33.1 % (42.0-52.0); Mean Corpuscular Hemoglobin 33.3 pg (25.0-34.0); Mean Corpuscular Hgb Conc 36.3 g/dL (32.0-36.0); Mean Corpuscular Volume 91.9 fL (80.0-100.0); Mean Platelet Volume 10.1 fL (9.4-12.4); Platelet Count 347 K/uL (130-400); RDW Coefficient of Variation 12.3 % (11.5-14.5); RDW Standard Deviation 41.8 fL (36.4-46.3); White Blood Count 8.39 K/ul (4.8-10.8)
[2022-10-12 08:51] LABS: Calcium 8.8 mg/dl (8.6-10.3); Est GFR (African American) 130.5 ml/min; Est GFR (Non-African American) 112.6 ml/min; Potassium 3.9 mmol/L (3.5-5.1)
[2022-10-12 09:03] LABS: Basophils # (auto) 0.01 K/uL (0.00-0.20); Basophils % (auto) 0.1 %; Echinocytes 1+; Immature Granulocytes # (auto) 0.05 K/uL (0.01-0.20); Immature Granulocytes % (auto) 0.6 %; Lymphocytes # (auto) 0.24 K/uL (1.20-3.40); Lymphocytes % (auto) 2.9 %; Monocytes # (auto) 0.31 K/uL (0.11-0.59); Monocytes % (auto) 3.7 %; Neutrophils # (auto) 7.78 K/uL (1.40-6.50); Neutrophils % (auto) 92.7 %; Polychromasia 1+
--- NOTE | 2022-10-12 10:48 | Pulmonary Consultation ---
Date of Consultation October 12, 2022 Assessment & Plan (1) Pneumonia: (2) Tobacco use disorder: (3) Abnormal chest CT: (4) COVID-19: (5) COPD exacerbation: (6) Alcohol abuse: Plan IMPRESSION: 62-year-old male with a significant past medical history of COPD, tobacco abuse, and alcoholism who presents to the emergency department with a few week history of generalized weakness and fatigue with associated cough. Abnormal CT findings with LEFT upper lobe airway collapse noted. Patient also coincidentally found to be positive for COVID-19. RECOMMENDATIONS: 1. Pneumonia - Concerns for LEFT upper lobe infiltrative findings with airway collapse. Certainly an interesting presentation, but given the setting of leukocytosis and procalcitonin, an argument could be made for ongoing aggressive antibiotics. May want to cover anaerobes in the patient with alcohol abuse. Consideration for Unasyn and continuing doxycycline with the intent for discharging on Augmentin and doxycycline. Given the airway collapse, will add hypertonic saline nebulizers in addition to scheduled albuterol inhalers. We will encourage flutter valve and incentive spirometry as well. We will order follow-up chest x-ray tomorrow to evaluate for any changes. At this point, the patient is saturating well on room air. He is certainly no respiratory distress at this time. Would agree with continued aggressive pulmonary toilet. No need for emergent pulmonary intervention at this time. Certainly, follow-up imaging of the chest could be performed the next 3 to 4 weeks. Patient ultimately may require bronchoscopic evaluation, but given his lack of symptomatology at this time, this could be deferred for the next few weeks and until the patient is able to recover from his current COVID-19 infection. 2. Tobacco abuse disorder - Continue to encourage smoking cessation. Patient with greater than [id number] history of smoking. Certainly, malignancy would not be off of her differential at this time. Again, given current lack of symptoms, would advocate for short-term (3 to 4-week) short-term follow-up CT. Patient does qualify for yearly low-dose CT lung cancer screening scans as well which can be managed in the outpatient setting. 3. Abnormal chest CT - Findings with infiltrative changes in the LEFT upper lobe with dynamic airway collapse. Given his findings of leukocytosis and elevated procalcitonin, agree with antibiotic coverage at this time. We will continue with aggressive pulmonary toileting including flutter valve, incentive spirometry, and hypertonic saline nebulizers. The patient is mobilizing more sputum at this time. Again, patient would warrant short-term CT at the least. Certainly, if his symptoms were to decline, would advocate for early bronchoscopic evaluation, however this could be completed in the outpatient setting otherwise. 4. COVID-19 infection - Patient currently on dexamethasone. Would complete the course at this time since initiated. Additionally, this would provide a dual advantage of the patient with COPD and acute exacerbation. 5. COPD exacerbation - Currently, the patient is on Breo and Incruse Ellipta. Patient is on Spiriva at home. Ultimately, the patient would benefit from LABA/LAMA combination given his likely underlying diagnosis of COPD. Patient warrants outpatient pulmonary function testing to evaluate degree of COPD. Otherwise, continue with treatment as you are including antibiotics, steroids, nebulizers, and pulmonary toileting. 6. Alcohol abuse - Patient reports abstaining from alcohol for the last 2 months. Would monitor closely for withdrawal symptoms. Thank you for allowing us to participate in the care of this patient. We will continue to follow along during inpatient stay. Supervising Physician Co-Signing Physician Notes I saw and evaluated the patient with SALLY Gomez, and I agree with his findings and plan as documented in the note. Would broaden the antibiotics to cover any anaerobes. Aggressive pulmonary hygiene with expectorant and aerosol treatments. COVID-19(+) therefore would be required to treat with Dexamethasone & Remdesivir. Consider nicotine patch for tobacco abuse ETOH Abuse therefore he may require CIWA scale for withdrawl. If his respiratory status were to further decline, will advocate for bronchoscopy History of Present Illness Reason for Consultation: abn ct chest Requesting Physician: Dr. Teixeira Attending Physician: Servando Toth MD History of Present Illness Patient is a 62-year-old male with a significant past medical history of alcohol abuse, COPD, and tobacco abuse disorder who presented to the hospital on 10/11 with complaints of generalized weakness and fatigue and symptoms of shortness of breath and cough which have been ongoing for the last 3 weeks. The patient also reports a decreased appetite for the last 4 weeks. He is uncertain, but feels as though he is lost weight. He reports no night sweats. No personal history of malignancy or family history of such. The patient carries a 50+ pack-year history of smoking. He currently smokes a pack a day at least. Patient states that he has not been drinking for the past month or so despite a significant history of the same. Upon evaluation in the emergency department, the patient was noted to be mildly hypoxic and requiring 2 L nasal cannula. Chest x-ray was concerning for mediastinal changes. CT concerning for LEFT upper lobe airway collapse. Patient was noted to have an elevated procalcitonin and mild leukocytosis. Patient had been started on steroids, fluids, antibiotics, and DuoNebs. Patient admitted for ongoing evaluation management. Patient reports that the nebulizers have provided significant amount of improvement of his symptoms. He does report a history of COPD and takes Spiriva and albuterol. He does not currently have his medications so he does not use them regularly or as prescribed. Otherwise, upon evaluation today, he reports improvement with his breathing. He is currently saturating well on room air. Allergies Allergy/AdvReac Type Severity Reaction Status Date / Time No Known Allergies Allergy Unverified 10/11/22 21:09 Home Medications Medication Instructions Recorded Confirmed Type fluticasone 100 mcg-salmeterol 50 1 inh inhalation DAILY #60 ea 10/14/21 10/11/22 Rx mcg/dose blistr powdr for inhalation (Advair Diskus) tiotropium bromide 18 mcg capsule 1 cap inhalation DAILY #2 10/14/21 10/11/22 Rx with inhalation device inhalations albuterol sulfate 90 mcg/actuation 2 puff inhalation Q6H PRN 01/16/22 10/11/22 Rx aerosol inhaler Shortness Of Breath #8.5 grams amlodipine 5 mg tablet 5 mg PO QAM #30 tabs 01/16/22 10/11/22 Rx Patient History Medical History Atherosclerosis of lower extremity with intermittent claudication "right leg" COPD (chronic obstructive pulmonary disease) History of torsades de pointes Hypertension Tobacco use disorder Surgical History History of dental surgery S/P tonsillectomy and adenoidectomy Family History Mother Diabetes Heart disease Social History Smoking Status: Current every day smoker Tobacco Type: Cigarettes Cigarettes Per Day: 1 ppd; Second Hand Exposure: No; Do You Dip or Chew Tobacco: No; Tobacco Cessation Education Requested by Patient: No Hx Alcohol Use: Yes Alcohol type: beer and hard liquor Hx Substance Use: No Preferred Language: Belarusian Communication Ability: Effective Marketing Strategy Lead Required: No Beliefs That Will Affect Care: None Current Living Situation: Alone Other Information That Helps Us Care for You: No Feels Safe at Home: Yes Safety Concerns: Feels Safe At This Time Assistive Devices: None Review of Systems Review of Systems: A complete 10 point review of systems was reviewed with the patient with pertinent positives and negatives as per history of present illness. All else were negative. Physical Exam Physical Exam: VITAL SIGNS - Vital signs and nursing notes were reviewed. GENERAL - 62-year-old male appearing his stated age who is in no acute distress. Communicates well with provider and answers questions appropriately. SKIN - Without rashes or lesions. NOSE - Midline and without cyanosis. No epistaxis or purulent drainage noted. MOUTH/OROPHARYNX - Without perioral cyanosis. NECK - Neck with FROM. LUNGS - Chest wall evaluation demonstrates increased chest wall A:P diameter. Auscultation reveals decreased air entry with slight diffuse inspiratory wheezes appreciated. CARDIAC - RRR with S1/S2. No murmur, rubs, or gallops appreciated. EXTREMITIES - Nail clubbing present. No peripheral cyanosis. No pretibial edema present. +3/5 radial palpated throughout. PSYCH - A&Ox3 and cooperates fully with examiner. Pt is very pleasant and interacts well with examiner. Results & Data Results & Data Vital Signs (Past 12 Hours) Vital Signs Temp Pulse Pulse Resp BP BP Pulse Ox 10/12/22 08:57 77 10/12/22 07:59 36.7 C 97 H 20 115/72 92 10/12/22 01:36 79 10/12/22 01:36 10/12/22 03:00 36.6 C 87 16 103/68 93 10/12/22 02:14 81 18 95 10/12/22 01:36 10/12/22 01:40 79 16 10/12/22 01:30 78 16 10/12/22 01:24 101 H 16 10/12/22 01:00 119/80 10/12/22 00:46 141/99 H 10/12/22 00:34 90 17 10/12/22 00:31 115/78 10/12/22 00:31 91 H 22 10/12/22 00:30 91 H 20 10/12/22 00:20 90 17 10/12/22 00:15 86 20 96 10/12/22 00:15 120/78 10/12/22 00:10 82 16 96 10/12/22 00:00 79 16 97 10/12/22 00:00 133/88 10/11/22 23:50 94 H 23 93 10/11/22 23:46 105/74 10/11/22 23:46 95 H 18 91 10/11/22 23:40 86 19 10/11/22 23:30 86 18 94 10/11/22 23:30 114/80 10/11/22 23:20 89 23 96 10/11/22 23:15 140/93 10/11/22 23:15 88 16 97 10/11/22 23:10 93 H 17 96 10/11/22 23:00 89 20 95 10/11/22 23:00 117/86 10/11/22 22:50 94 H 21 94 10/12/22 01:38 36.6 C 86 20 107/66 96 10/12/22 01:06 80 18 119/80 10/11/22 22:56 89 Pulse Ox O2 Del Method O2 Del Method O2 Flow Rate 10/12/22 08:57 10/12/22 07:59 Nasal Cannula 2 10/12/22 01:36 10/12/22 01:36 Nasal Cannula 2 10/12/22 03:00 Room Air 10/12/22 02:14 Room Air 10/12/22 01:36 96 Room Air 10/12/22 01:40 10/12/22 01:30 10/12/22 01:24 10/12/22 01:00 10/12/22 00:46 10/12/22 00:34 10/12/22 00:31 10/12/22 00:31 10/12/22 00:30 10/12/22 00:20 10/12/22 00:15 10/12/22 00:15 10/12/22 00:10 10/12/22 00:00 10/12/22 00:00 10/11/22 23:50 10/11/22 23:46 10/11/22 23:46 10/11/22 23:40 10/11/22 23:30 10/11/22 23:30 10/11/22 23:20 10/11/22 23:15 10/11/22 23:15 10/11/22 23:10 10/11/22 23:00 10/11/22 23:00 10/11/22 22:50 10/12/22 01:38 Room Air 10/12/22 01:06 10/11/22 22:56 PG Care Time/CCT Total # of Minutes Spent Total Time Spent with Patient: Total time spent is greater than 50% in coordination of care (as documented) at patient's floor/unit and/or counseling patient: Coding Level of Care Code 99109 IN/OBS CONSULT LVL 4,60M Diagnoses Pneumonia J18.9 Tobacco use disorder F17.[address] R93.89 COVID-19 U07.1 COPD exacerbation J44.1 Alcohol abuse F10.10
--- NOTE | 2022-10-12 10:49 | Nephrology Consultation ---
Date of Consultation October 12, 2022 Assessment & Plan (1) COVID-19: Noted . It is not unusual to have hyponatremia with COVID-19 as we have seen in the last 3-year (2) Sepsis: Respiratory tract infection with COVID-19 as well as superimposed pneumonia causing sepsis (3) Acute hyponatremia: Patient is very cachectic and weighs 43 kg with a very poor appetite and significant weight loss in the last few month. History of heavy alcohol abuse but denies current use. Sodium was 124 and now it is already up to 130. At this level he is out of danger and given his significant mild nutritional status sodium of 130 is very reasonable. 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 Continue current fluid restriction of 2000 mL/day. He does not need any salt tablets or urea. History of Present Illness Attending Physician: Servando Toth MD History of Present Illness 62/M with h/o chronic hyponatremia secondary to alcohol abuse, PVD, COPD, history of torsades de pointes. Presented to the hospital with 3 weeks history of cough with clear sputum pleuritic chest pain and worsening shortness of breath . He was also admitted January 2022 for COPD exacerbation and alcohol abuse and also had some hyponatremia during that time. Denies aspiration. No known sick contacts. Poor appetite and had Ten pound weight loss over the last 6 months. No diarrhea and not on any diuretic at home. Patient received Solu-Medrol, Ceftriaxone, and Azithromycin at the ER for sepsis. Admission sodium was 124 most recent sodium is 130. He is only on 2000 mL of fluid restrict for the treatment of hyponatremia. He was found to be positive for COVID-19. CT angio shows pneumonia bilaterally and also possibility of endobronchial mass. Review of systems-----as detailed in HPI. Unless stated otherwise 12 system reviewed and negative Physical Exam Physical Exam: GENERAL: comfortable, underweight,Mild respiratory distress SKIN: Normal color, warm HEENT: dry buccal mucosa NECK : Supple, no tenderness CHEST : Decreased breath sounds,no expiratory wheezes. occ crackles HEART : RRR, no obvious murmurs ABDOMEN: no distention, nontender EXTREMITIES : No LE swelling/tenderness, no other conspicuous deformities noted NEUROLOGIC : Coherent, no facial asymmetry, involuntary hand tremors noted Allergies Allergy/AdvReac Type Severity Reaction Status Date / Time No Known Allergies Allergy Unverified 10/11/22 21:09 Home Medications Medication Instructions Recorded Confirmed Type fluticasone 100 mcg-salmeterol 50 1 inh inhalation DAILY #60 ea 10/14/21 10/11/22 Rx mcg/dose blistr powdr for inhalation (Advair Diskus) tiotropium bromide 18 mcg capsule 1 cap inhalation DAILY #2 10/14/21 10/11/22 Rx with inhalation device inhalations albuterol sulfate 90 mcg/actuation 2 puff inhalation Q6H PRN 01/16/22 10/11/22 Rx aerosol inhaler Shortness Of Breath #8.5 grams amlodipine 5 mg tablet 5 mg PO QAM #30 tabs 01/16/22 10/11/22 Rx Patient History Medical History Atherosclerosis of lower extremity with intermittent claudication "right leg" COPD (chronic obstructive pulmonary disease) History of torsades de pointes Hypertension Tobacco use disorder Surgical History History of dental surgery S/P tonsillectomy and adenoidectomy Family History Mother Diabetes Heart disease Social History Smoking Status: Current every day smoker Tobacco Type: Cigarettes Cigarettes Per Day: 1 ppd; Second Hand Exposure: No; Do You Dip or Chew Tobacco: No; Tobacco Cessation Education Requested by Patient: No Hx Alcohol Use: Yes Alcohol type: beer and hard liquor Hx Substance Use: No Preferred Language: Qatari Communication Ability: Effective Stiff Straw Hat Washer Required: No Beliefs That Will Affect Care: None Current Living Situation: Alone Other Information That Helps Us Care for You: No Feels Safe at Home: Yes Safety Concerns: Feels Safe At This Time Assistive Devices: Cane, Denture - Upper, Denture - Lower and Glasses Results & Data Vital Signs (Past 12 Hours) Vital Signs Temp Pulse Pulse Resp BP BP Pulse Ox 10/12/22 08:57 77 10/12/22 07:59 36.7 C 97 H 20 115/72 92 10/12/22 01:36 79 10/12/22 01:36 10/12/22 03:00 36.6 C 87 16 103/68 93 10/12/22 02:14 81 18 95 10/12/22 01:36 10/12/22 01:40 79 16 10/12/22 01:30 78 16 10/12/22 01:24 101 H 16 10/12/22 01:00 119/80 10/12/22 00:46 141/99 H 10/12/22 00:34 90 17 10/12/22 00:31 115/78 10/12/22 00:31 91 H 22 10/12/22 00:30 91 H 20 10/12/22 00:20 90 17 10/12/22 00:15 86 20 96 10/12/22 00:15 120/78 10/12/22 00:10 82 16 96 10/12/22 00:00 79 16 97 10/12/22 00:00 133/88 10/11/22 23:50 94 H 23 93 10/11/22 23:46 105/74 10/11/22 23:46 95 H 18 91 10/11/22 23:40 86 19 10/11/22 23:30 86 18 94 10/11/22 23:30 114/80 10/11/22 23:20 89 23 96 10/11/22 23:15 140/93 10/11/22 23:15 88 16 97 10/11/22 23:10 93 H 17 96 10/11/22 23:00 89 20 95 10/11/22 23:00 117/86 10/11/22 22:50 94 H 21 94 10/12/22 01:38 36.6 C 86 20 107/66 96 10/12/22 01:06 80 18 119/80 10/11/22 22:56 89 Pulse Ox O2 Del Method O2 Del Method O2 Flow Rate 10/12/22 08:57 10/12/22 07:59 Nasal Cannula 2 10/12/22 01:36 10/12/22 01:36 Nasal Cannula 2 10/12/22 03:00 Room Air 10/12/22 02:14 Room Air 10/12/22 01:36 96 Room Air 10/12/22 01:40 10/12/22 01:30 10/12/22 01:24 10/12/22 01:00 10/12/22 00:46 10/12/22 00:34 10/12/22 00:31 10/12/22 00:31 10/12/22 00:30 10/12/22 00:20 10/12/22 00:15 10/12/22 00:15 10/12/22 00:10 10/12/22 00:00 10/12/22 00:00 10/11/22 23:50 10/11/22 23:46 10/11/22 23:46 10/11/22 23:40 10/11/22 23:30 10/11/22 23:30 10/11/22 23:20 10/11/22 23:15 10/11/22 23:15 10/11/22 23:10 10/11/22 23:00 10/11/22 23:00 10/11/22 22:50 10/12/22 01:38 Room Air 10/12/22 01:06 10/11/22 22:56 Laboratory Results Sodium on admission 124 most recent 130. Positive for COVID 9 Diagnostic Findings Chest x-ray and CT angiogram reviewed
--- NOTE | 2022-10-12 17:55 | Hospitalist Progress Note ---
Date of Service October 12, 2022 Assessment & Plan (1) Sepsis: Plan: per admitting service notes with addendum: Severe COVID-pneumonia, with hypoxia Possible post obstructive left upper lobe pneumonia COPD exacerbation SIRS secondary to CAP, COVID-19 pneumonia, possible postobstructive pneumonia on CT imaging Currently weaned off oxygen, on room air Continue doxycycline, change ceftriaxone to Zosyn Continue Decadron Pulmonary service consulted Hyponatremia Possible SIADH secondary to pneumonia Sodium improving to 130s, 127 Continue fluid restriction HTN, stable hx PVD history of torsades de pointes chronic anemia, hemoglobin at baseline Hyperglycemia likely secondary to prediabetes, hemoglobin A1c of 5.7 last year malnutrition RE low BMI ongoing tobacco abuse. SONI S, DT precautions Nutrition consult RE low BMI Nicotine patch as needed Full code Disposition Anticipate discharge to home medically stable Will need two-step exercise test Admission and Anticipated Discharge Date Admission Date: October 11, 2022 Subjective Follow-up for left upper lobe pneumonia, COVID-19 infection, etc. Resting in bed, sitting up, having dinner, on room air States he feels improved today compared to yesterday Breathing is improving Cough is improving Has scant sputum No fevers or chills Denies chest pain, palpitations, dizziness, abdominal pain, leg pain No other symptoms Review of Systems Review of Systems: all noted and negative except for above Physical Exam Physical Exam: General- oriented x 3, not in distress, speaks in sentences with no effort or accessory muscle use Head- atraumatic Eyes- PERRL, EOMI, anicteric ENT- oropharynx clear Neck- supple, no JVD, no adenopathy, no thyromegaly; carotids +2/2, no bruits ap preciated Lungs- clear to auscultation bilaterally, no rales/wheezes Heart- normal rate, regular rhythm; no murmur, no gallop, no rub appreciated Abdomen- normal bowel sounds, nondistended, soft, nontender, no masses or hepatosplenomegaly Extremities- no pretibial edema, no calf tenderness; peripheral pulses intact Neuro- alert, oriented x 3; CN 2-12 grossly intact; motor 5/5 bilaterally;sen sation 100% on all extremities; no other gross focal neurologic deficits Skin- warm & dry Results & Data Results & Data Vital Signs (Past 12 Hours) Vital Signs Temp Pulse Pulse Resp BP Pulse Ox O2 Del Method 10/12/22 14:43 36.8 C 78 18 98 Room Air 10/12/22 11:00 36.8 C 83 18 117/73 97 Nasal Cannula 10/12/22 10:58 79 10/12/22 08:57 77 10/12/22 07:59 36.7 C 97 H 20 115/72 92 Nasal Cannula O2 Flow Rate 10/12/22 14:43 10/12/22 11:00 10/12/22 10:58 10/12/22 08:57 10/12/22 07:59 2 all noted and reviewed including below
[2022-10-12] MEDS ORDERED: PIPERACILLIN/TAZOBACTAM 4.5 GM (over 30 mins) IV ONE (18:15)
[2022-10-12] MEDS ORDERED: cefTRIAXone SODIUM 1,000 MG in DEXTROSE 5% 50 ML IV SCH (20:00)
[2022-10-12] MEDS: LEVALBUTEROL 1.25 MG/3 ML NEB NEB PRN (21:17)
[2022-10-12] MEDS: SODIUM CHLOR 7% 4 ML NEB NEB SCH (21:17)
--- NOTE | 2022-10-12 21:50 | Electrocardiogram Report ---
Test Reason : Blood Pressure : / mmHG Vent. Rate : 109 BPM Atrial Rate : 109 BPM P-R Int : 138 ms QRS Dur : 080 ms QT Int : 318 ms P-R-T Axes : 055 -04 087 degrees QTc Int : 428 ms Sinus tachycardia Possible Left atrial enlargement Anteroseptal infarct (cited on or before 11-OCT-2022) Abnormal ECG When compared with ECG of 13-JAN-2022 08:27, No significant change Confirmed by Michele Carcamo ([id number]) on 10/12/2022 9:50:30 PM Referred By: REFERRED SELF Confirmed By:Michele Carcamo
[2022-10-12] MEDS: PIPERACILLIN/TAZOBACTAM 4.5 GM in DEXTROSE 5% 100 ML IV SCH (23:28)
[2022-10-13] MEDS: GABAPENTIN 400 MG CAP PO SCH ×2 (05:03→13:15)
[2022-10-13] MEDS: HEPARIN SOD 5,000 UNIT/0.5 ML VIAL SQ SCH ×3 (05:06→20:47)
[2022-10-13] MEDS: LEVALBUTEROL 1.25 MG/3 ML NEB NEB PRN ×2 (07:09→19:00)
[2022-10-13] MEDS: SODIUM CHLOR 7% 4 ML NEB NEB SCH ×2 (07:09→19:00)
[2022-10-13] MEDS: UMECLIDINIUM BROMIDE 62.5MCG/BLISTER 7 PUFFS/INHALER INH SCH (08:20)
[2022-10-13] MEDS: FLUTICASONE/VILANTEROL 100/25MCG 14 PUFFS/INHALER INH SCH (08:20)
[2022-10-13] MEDS: PIPERACILLIN/TAZOBACTAM 4.5 GM in DEXTROSE 5% 100 ML IV SCH ×3 (08:21→23:38)
[2022-10-13] MEDS: amLODIPine BESYLATE 5 MG TAB PO SCH (08:21)
[2022-10-13] MEDS: dexAMETHasone 6 MG in SYRINGE 0 ML IV SCH (08:22)
[2022-10-13] MEDS: FOLIC ACID 1 MG TAB PO SCH (08:22)
[2022-10-13] MEDS: DOXYCYCLINE HYCLATE 100 MG CAP PO SCH ×2 (08:22→20:43)
[2022-10-13] MEDS: MULTIVITAMIN TAB PO SCH (08:22)
[2022-10-13] MEDS: THIAMINE HCL 100 MG TAB PO SCH (08:22)
--- NOTE | 2022-10-13 11:02 | Pulmonology Progress Note ---
Date of Service October 13, 2022 Assessment & Plan (1) Pneumonia: (2) Tobacco use disorder: (3) Abnormal chest CT: (4) COVID-19: (5) COPD exacerbation: (6) Alcohol abuse: Plan IMPRESSION: 62-year-old male with a significant past medical history of COPD, tobacco abuse, and alcoholism who presents to the emergency department with a few week history of generalized weakness and fatigue with associated cough. Abnormal CT findings with LEFT upper lobe airway collapse noted. Patient also coincidentally found to be positive for COVID-19. RECOMMENDATIONS: 1. Pneumonia - Concerns for LEFT upper lobe infiltrative findings with airway collapse. Certainly an interesting presentation, but given the setting of leukocytosis and procalcitonin, an argument could be made for ongoing aggressive antibiotics. May want to cover anaerobes in the patient with alcohol abuse. Consideration for Unasyn and continuing doxycycline with the intent for discharging on Augmentin and doxycycline. Continue flutter valve/IS/Hypertonic nebs in the setting of airway collapse. Patient continues to saturate well on room air. 2. Tobacco abuse disorder - Continue to encourage smoking cessation. Patient with greater than [id number] history of smoking. Certainly, malignancy would not be off of her differential at this time. Again, given current lack of symptoms, would advocate for short-term (3 to 4-week) short-term follow-up CT. Patient does qualify for yearly low-dose CT lung cancer screening scans as well which can be managed in the outpatient setting. 3. Abnormal chest CT - Findings with infiltrative changes in the LEFT upper lobe with dynamic airway collapse. Given his findings of leukocytosis and elevated procalcitonin, agree with antibiotic coverage at this time. We will continue with aggressive pulmonary toileting including flutter valve, incentive spirometry, and hypertonic saline nebulizers. The patient is mobilizing more sputum at this time. At this point, the patient is saturating well on room air. He is certainly no respiratory distress at this time. No need for emergent pulmonary intervention at this time. Short-term follow-up imaging of the chest should be performed the next 3 to 4 weeks. Patient ultimately may require bronchoscopic evaluation, but given his lack of symptomatology at this time, recent COPD exacerbation, and current COVID-19 infection, it might make more sense to explore this option in the next several days to few weeks. 4. COVID-19 infection - Uncertain of course of infection. Patient has felt unwell for 3-4 weeks. Unable to tolerate IV dexamethasone. Consider transition to p.o. steroids for total purpose of COPD exacerbation if he were to rebound with bronchospasm. 5. COPD exacerbation - Currently, the patient is on Breo and Incruse Ellipta. Patient is on Spiriva at home. Ultimately, the patient would benefit from LABA/LAMA combination given his likely underlying diagnosis of COPD. Patient warrants outpatient pulmonary function testing to evaluate degree of COPD. Otherwise, continue with treatment as you are including antibiotics, steroids, nebulizers, and pulmonary toileting. 6. Alcohol abuse - Patient reports abstaining from alcohol for the last 2 months. Would monitor closely for withdrawal symptoms. Thank you for allowing us to participate in the care of this patient. We will continue to follow along during inpatient stay. Admission and Anticipated Discharge Date Admission Date: October 11, 2022 Supervising Physician Co-Signing Physician Notes I saw and evaluated the patient with SALLY Gmoez, and I agree with his findings and plan as documented in the note. Would broaden the antibiotics to cover any anaerobes. Aggressive pulmonary hygiene with expectorant and aerosol treatments. COVID-19(+) could not tolerate Dexamethasone therefore switched to prednisone but on room air. Consider nicotine patch for tobacco abuse ETOH Abuse therefore he may require CIWA scale for withdrawl. If his respiratory status were to further decline, will advocate for bronchoscopy. Bronchoscopy may be better served after his infectious period of COVD-19 and completion of his antibiotics. Dietary evaluation for nutritional supplementation. Continue inhalers. Subjective Patient was seen and evaluated by myself. He reports that his breathing is feeling better and he continues to bring up clear sputum. He reports the inhalers have been working well for him. He offers no complaints today. Review of Systems Review of Systems: A complete 10 point review of systems was reviewed with the patient with pertinent positives and negatives as per history of present illness. All else were negative. Physical Exam Physical Exam: VITAL SIGNS - Vital signs and nursing notes were reviewed. GENERAL - 62-year-old male appearing his stated age who is in no acute distress. Communicates well with provider and answers questions appropriately. LUNGS - Chest wall evaluation demonstrates increased chest wall A:P diameter. Auscultation reveals decreased air entry with improved to resolved wheezing. CARDIAC - RRR with S1/S2. No murmur, rubs, or gallops appreciated. PSYCH - A&Ox3 and cooperates fully with examiner. Pt is very pleasant and interacts well with examiner. Results & Data Results & Data Vital Signs (Past 12 Hours) Vital Signs Temp Pulse Pulse Resp BP Pulse Ox Pulse Ox 10/13/22 07:47 73 10/13/22 09:52 10/13/22 07:41 36.7 C 84 20 123/77 98 10/13/22 07:09 76 18 93 10/13/22 03:00 37.0 C 77 20 104/70 99 10/13/22 01:36 93 10/13/22 00:06 82 O2 Del Method O2 Del Method O2 Flow Rate 10/13/22 07:47 10/13/22 09:52 Room Air 10/13/22 07:41 Room Air 10/13/22 07:09 Room Air 10/13/22 03:00 Nasal Cannula 10/13/22 01:36 Nasal Cannula 2 10/13/22 00:06 PG Care Time/CCT Total # of Minutes Spent Total Time Spent with Patient: Total time spent is greater than 50% in coordination of care (as documented) at patient's floor/unit and/or counseling patient: Coding Level of Care Code 39089 SUB INP/OBS CARE 3/50MIN Diagnoses Pneumonia J18.9 Tobacco use disorder F17.[address] R93.89 COVID-19 U07.1 COPD exacerbation J44.1 Alcohol abuse F10.10
--- NOTE | 2022-10-13 11:10 | Nephrology Progress Note ---
Date of Service October 13, 2022 Assessment & Plan Admission and Anticipated Discharge Date Admission Date: October 11, 2022 Subjective Assessment & Plan (1) COVID-19: Noted . It is not unusual to have hyponatremia with COVID-19 as we have seen in the last 3-year (2) Sepsis: Respiratory tract infection with COVID-19 as well as superimposed pneumonia causing sepsis (3) Acute hyponatremia: Patient is very cachectic and weighs 43 kg with a very poor appetite and significant weight loss in the last few month. History of heavy alcohol abuse but denies current use. Sodium was 124 and now it is already up to 130. At this level he is out of danger and given his significant mild nutritional status sodium of 130 is very reasonable. 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 Given Drop in na+--lower FFR to 1200 ml per day, Urea 15 gm bid, Salt tab 1 gm bid. S--no new issues. na dropped again. Physical Exam Physical Exam: GENERAL: comfortable, underweight,Mild respiratory distress SKIN: Normal color, warm HEENT: dry buccal mucosa NECK : Supple, no tenderness CHEST : Decreased breath sounds,no expiratory wheezes. occ crackles HEART : RRR, no obvious murmurs ABDOMEN: no distention, nontender EXTREMITIES : No LE swelling/tenderness, no other conspicuous deformities noted NEUROLOGIC : Coherent, no facial asymmetry, involuntary hand tremors noted Results & Data Vital Signs (Past 12 Hours) Vital Signs Temp Pulse Pulse Resp BP Pulse Ox Pulse Ox 10/13/22 07:47 73 10/13/22 09:52 10/13/22 07:41 36.7 C 84 20 123/77 98 10/13/22 07:09 76 18 93 10/13/22 03:00 37.0 C 77 20 104/70 99 10/13/22 01:36 93 10/13/22 00:06 82 O2 Del Method O2 Del Method O2 Flow Rate 10/13/22 07:47 10/13/22 09:52 Room Air 10/13/22 07:41 Room Air 10/13/22 07:09 Room Air 10/13/22 03:00 Nasal Cannula 10/13/22 01:36 Nasal Cannula 2 10/13/22 00:06
[2022-10-13] MEDS: SODIUM CHLORIDE 1 GM TABLET PO SCH ×2 (12:15→20:43)
[2022-10-13] MEDS: UREA (UREA-NA) 15 GM PACK PO SCH ×2 (12:15→20:43)
[2022-10-13 12:42] LABS: BUN Creatinine Ratio 27.1 (10-20); Calcium 8.9 mg/dl (8.6-10.3); Creatinine Clr Calc Pharmacy 78.1 ml/min; Est GFR (African American) 124.9 ml/min; Est GFR (Non-African American) 107.7 ml/min; Potassium 3.9 mmol/L (3.5-5.1)
--- NOTE | 2022-10-13 13:43 | XRay Report ---
XR chest 1V portable CLINICAL HISTORY: f/u TECHNIQUE: Single frontal radiograph of the chest was obtained. Comparison: Comparison is made to chest radiograph 10/11/[address] chest 10/11/2022 FINDINGS: No lines and tubes are seen. Calcified aortic knob is seen. Left mediastinal mass is seen. Density is noted in the left upper lobe. IMPRESSION: Redemonstration of findings compatible with left mediastinal mass and associated upper lobe collapse. ACT 112: Negative or not required by law. Electronically signed by: Valeriy Stone M.D. 10/13/2022 1:41 PM
--- NOTE | 2022-10-13 16:44 | Hospitalist Progress Note ---
Date of Service October 13, 2022 Assessment & Plan (1) Sepsis: Plan: per admitting service notes with addendum: Severe COVID-pneumonia, with hypoxia Possible post obstructive left upper lobe pneumonia COPD exacerbation SIRS secondary to CAP, COVID-19 pneumonia, possible postobstructive pneumonia on CT imaging Currently weaned off oxygen, on room air Continue doxycycline, changed ceftriaxone to Zosyn--> day #2 d/c Decadron today Pulmonary service consulted: CT chest in 3-4 weeks, outpatient Bronchoscopy Hyponatremia Possible SIADH secondary to pneumonia Sodium improving to 130s, 127--> 129 Continue fluid restriction Nephrology on board HTN, stable hx PVD history of torsades de pointes chronic anemia, hemoglobin at baseline Hyperglycemia likely secondary to prediabetes, hemoglobin A1c of 5.7 last year malnutrition RE low BMI ongoing tobacco abuse. SONI S, DT precautions Nutrition consult RE low BMI Nicotine patch as needed Full code Disposition PT/OT eval may need acute rehab vs SNF Will need two-step exercise test Admission and Anticipated Discharge Date Admission Date: October 11, 2022 Subjective ff up for pneumonia, COVID infection, etc seen resting in bed, sitting up comfortable breathing is improving less sputum no chest pain, dyspnea, palpitations, dizziness no fever/chills oriented x 3 was confused earlier in AM per RN no other new symptoms Review of Systems Review of Systems: all noted and negative except for above Physical Exam Physical Exam: General- oriented x 3, not in distress, speaks in sentences with no effort or accessory muscle use Eyes- anicteric Neck- no JVD Lungs- mild rhonchi L upper lobe clear on the right Heart- normal rate, regular rhythm; no murmurs Abdomen- normal bowel sounds, nondistended, soft, nontender Extremities- no pretibial edema, no calf tenderness Neuro- alert, oriented x 3; no gross focal neurologic deficits Skin- warm & dry Results & Data Results & Data Vital Signs (Past 12 Hours) Vital Signs Temp Pulse Pulse Resp BP Pulse Ox O2 Del Method 10/13/22 15:20 86 10/13/22 15:08 96 10/13/22 12:00 36.8 C 79 20 108/66 97 Room Air 10/13/22 07:47 73 10/13/22 09:52 Room Air 10/13/22 07:41 36.7 C 84 20 123/77 98 Room Air 10/13/22 07:09 76 18 93 Room Air all noted and reviewed including below
[2022-10-13 20:53] LABS: BUN Creatinine Ratio 27.1 (10-20); Calcium 8.7 mg/dl (8.6-10.3); Est GFR (African American) 97.1 ml/min; Est GFR (Non-African American) 83.8 ml/min
[2022-10-13] MEDS ORDERED: ALBUMIN 25% 25 GM/100 ML VIAL IV ONE (23:38)
[2022-10-14] MEDS: GABAPENTIN 400 MG CAP PO SCH ×2 (01:27→14:18)
[2022-10-14] MEDS: HEPARIN SOD 5,000 UNIT/0.5 ML VIAL SQ SCH ×3 (05:04→21:38)
[2022-10-14 05:23] LABS: Appearance Urine Clear (Clear); Bilirubin Urine Negative (Negative); Blood Urine Negative (Negative); Color Urine Yellow; Glucose Urine UA Negative (Negative); Ketones Urine Negative (Negative); Leukocyte Esterase Urine Negative (Negative); Nitrite Urine Negative (Negative); Protein Urine Negative (Negative); Specific Gravity Urine 1.008 (1.000-1.030); Urobilinogen Urine Negative (Negative)
[2022-10-14] MEDS: SODIUM CHLOR 7% 4 ML NEB NEB SCH ×2 (07:40→20:03)
[2022-10-14] MEDS: LEVALBUTEROL 1.25 MG/3 ML NEB NEB PRN (07:40)
[2022-10-14 08:17] LABS: BUN Creatinine Ratio 45.9 (10-20); Calcium 8.8 mg/dl (8.6-10.3); Creatinine Clr Calc Pharmacy 75.6 ml/min; Est GFR (African American) 123.2 ml/min; Est GFR (Non-African American) 106.3 ml/min; Potassium 3.4 mmol/L (3.5-5.1)
[2022-10-14] MEDS ORDERED: POTASSIUM CHLORIDE CRTAB 20 MEQ TABCR PO STA (08:51)
[2022-10-14] MEDS: UREA (UREA-NA) 15 GM PACK PO SCH ×2 (09:51→21:39)
[2022-10-14] MEDS: FLUTICASONE/VILANTEROL 100/25MCG 14 PUFFS/INHALER INH SCH (09:51)
[2022-10-14] MEDS: UMECLIDINIUM BROMIDE 62.5MCG/BLISTER 7 PUFFS/INHALER INH SCH (09:51)
[2022-10-14] MEDS: amLODIPine BESYLATE 5 MG TAB PO SCH (09:52)
[2022-10-14] MEDS: MULTIVITAMIN TAB PO SCH (09:52)
[2022-10-14] MEDS: FOLIC ACID 1 MG TAB PO SCH (09:52)
[2022-10-14] MEDS: SODIUM CHLORIDE 1 GM TABLET PO SCH ×2 (09:52→21:38)
[2022-10-14] MEDS: DOXYCYCLINE HYCLATE 100 MG CAP PO SCH ×2 (09:52→21:39)
[2022-10-14] MEDS: THIAMINE HCL 100 MG TAB PO SCH (09:52)
--- NOTE | 2022-10-14 10:01 | Nephrology Progress Note ---
Date of Service October 14, 2022 Assessment & Plan Admission and Anticipated Discharge Date Admission Date: October 11, 2022 Subjective Assessment & Plan (1) COVID-19: Noted . It is not unusual to have hyponatremia with COVID-19 as we have seen in the last 3-year (2) Sepsis: Respiratory tract infection with COVID-19 as well as superimposed pneumonia causing sepsis (3) Acute hyponatremia: Patient is very cachectic and weighs 43 kg with a very poor appetite and significant weight loss in the last few month. History of heavy alcohol abuse but denies current use. Sodium was 124 and now it is already up to 130. At this level he is out of danger and given his significant mild nutritional status sodium of 130 is very reasonable. 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 Conitnue FFR to 1200 ml per day, Urea 15 gm bid, Salt tab 1 gm bid. Low k today--kcl already given S--no new issues. na 132 now k 3.4 Results & Data Vital Signs (Past 12 Hours) Vital Signs Temp Pulse Pulse Resp BP Pulse Ox O2 Del Method 10/14/22 08:34 36.7 C 70 18 135/69 96 Room Air 10/14/22 07:43 60 20 98 Room Air 10/14/22 01:14 84 10/14/22 02:54 36.8 C 64 18 147/83 H 97 Room Air 10/14/22 01:05 79 10/13/22 23:35 37.1 C 85 20 128/81 97 Room Air
[2022-10-14] MEDS: PIPERACILLIN/TAZOBACTAM 4.5 GM in DEXTROSE 5% 100 ML IV SCH (10:41)
[2022-10-14] MEDS: AMPICILLIN/SULBACTAM SOD 3,000 MG in 0.9 % SODIUM CHLORIDE 100 ML IV SCH ×3 (11:55→21:37)
--- NOTE | 2022-10-14 14:07 | Hospitalist Progress Note ---
Date of Service October 14, 2022 Assessment & Plan (1) Sepsis: Plan: per admitting service notes with addendum: Severe COVID-pneumonia, with hypoxia Possible post obstructive left upper lobe pneumonia COPD exacerbation SIRS secondary to CAP, COVID-19 pneumonia, possible postobstructive pneumonia on CT imaging Currently weaned off oxygen, on room air Continue doxycycline, changed ceftriaxone to Zosyn--> day #2. d/c Decadron today on 10/13/2022 Pulmonary service consulted: CT chest in 3-4 weeks, outpatient Bronchoscopy Zosyn is changed to Unasyn from today that is 10/14/2022 and doxycycline continued Clinically much better denies any significant symptom Hyponatremia Possible SIADH secondary to pneumonia Sodium improving to 130s, 127--> 129 Continue fluid restriction Appreciate nephrology input and recommendation We will continue fluid restriction to 1200 mL/day, urea 15 g twice daily and salt tablet 1 g twice daily Monitor PRP HTN, stable hx PVD history of torsades de pointes chronic anemia, hemoglobin at baseline Hyperglycemia likely secondary to prediabetes, hemoglobin A1c of 5.7 last year malnutrition RE low BMI ongoing tobacco abuse. SONI S, DT precautions Nutrition consult RE low BMI Nicotine patch as needed Full code Disposition PT/OT eval may need acute rehab vs SNF-PT recommended rehab but the patient wants to go home with a walker Will need two-step exercise test prior to discharge Admission and Anticipated Discharge Date Admission Date: October 11, 2022 Subjective 10/14/2022 The patient was seen and examined in medical telemetry unit and in the COVID room He denies any respiratory symptoms Denies any significant weakness and wants to go home and asking for a walker Review of Systems Review of Systems: All systems reviewed and are unremarkable except as noted below Physical Exam Physical Exam: Sitting on a chair without any acute distress Constitutional: well developed, well nourished, + ill appearing and average body habitus Eyes: PERRL, conjunctivae normal, anicteric sclerae ENMT: external ear and nose normal, oropharynx normal Neck: trachea midline, no thyromegaly Respiratory: no respiratory distress Auscultation: + diminished lung sounds and + crackles (Minimal crackles at the bases) Gastrointestinal (Abdomen): Inspection/Auscultation: normal bowel sounds; abdomen not distended Percussion/Palpation: abdomen soft; abdomen nontender Musculoskeletal: No acute arthritis involving any joint Neurologic: normal touch/pain/proprioception and moves all extremities; no focal motor deficits Lymphatic: no cervical or axillary lymphadenopathy Results & Data Results & Data Vital Signs (Past 12 Hours) Vital Signs Temp Pulse Pulse Resp BP Pulse Ox O2 Del Method 10/14/22 12:03 Room Air 10/14/22 11:44 36.7 C 91 H 18 105/63 95 Room Air 10/14/22 11:43 75 10/14/22 08:34 36.7 C 70 18 135/69 96 Room Air 10/14/22 07:43 60 20 98 Room Air 10/14/22 02:54 36.8 C 64 18 147/83 H 97 Room Air Laboratory Results BMP 10/13/22 10/14/22 20:02 07:15 Sodium 128 L 132 L Potassium 4.0 3.4 L Chloride 90 L 94 L Carbon Dioxide 30 30 BUN 26 H 28 H Creatinine 0.96 D 0.61 D Glucose 120 H 79 Calcium 8.7 8.8 Urine 10/14/22 Range/Units 05:00 Urine Color Yellow Urine Appearance Clear (Clear) Urine pH 7.0 (4.5-7.5) Ur Specific [place] 1.008 (1.000-1.030) Urine Protein Negative (Negative) Urine Glucose (UA) Negative (Negative) Medications Administered Current Inpatient Medications Acetaminophen (Acetaminophen 325 Mg Tab) 650 mg PO Q4H PRN PRN Reason: Pain or Fever Stop: 11/11/22 01:35 Amlodipine Besylate (Amlodipine Besylate 5 Mg Tab) 5 mg PO QAM [facility] Stop: 11/11/22 08:59 Last Admin: 10/14/22 09:52 Dose: 5 mg Doxycycline Hyclate (Doxycycline Hyclate 100 Mg Cap) 100 mg PO BID [facility] Stop: 10/19/22 08:59 Last Admin: 10/14/22 09:52 Dose: 100 mg Fluticasone/Vilanterol (Fluticasone/Vilanterol 100/25mcg 14 Puffs/Inhaler) 1 puffs INH DAILY [facility] Stop: 11/11/22 08:59 Last Admin: 10/14/22 09:51 Dose: 1 puffs Folic Acid (Folic Acid 1 Mg Tab) 1 mg PO QAM [facility] Stop: 11/11/22 08:59 Last Admin: 10/14/22 09:52 Dose: 1 mg Gabapentin (Gabapentin 400 Mg Cap) 400 mg PO Q24H [facility] Stop: 10/16/22 02:01 Last Admin: 10/12/22 08:28 Dose: 400 mg Heparin Sodium (Porcine) (Heparin Sod 5,000 Unit/0.5 Ml Vial) 5,000 units SQ Q8 [facility] Stop: 11/11/22 05:59 Last Admin: 10/14/22 05:04 Dose: 5,000 units Promethazine HCl 6.25 mg/ (Sodium Chloride) 50.25 mls @ 201 mls/hr IV Q6H PRN PRN Reason: Nausea And Vomiting Stop: 11/11/22 01:35 Ampicillin Sodium/Sulbactam Sodium 3,000 mg/ Sodium Chloride 108 mls @ 216 mls/hr IV Q6H [facility]; Protocol Stop: 10/19/22 18:00 Last Infusion: 10/14/22 12:26 Dose: Infused Levalbuterol HCl (Levalbuterol 1.25 Mg/3 Ml Neb) 1.25 mg NEB Q4H PRN; Protocol PRN Reason: sob wheeze Stop: 11/11/22 05:44 Last Admin: 10/14/22 07:40 Dose: 1.25 mg Lorazepam (Lorazepam 2 Mg/1 Ml Vial) 2 mg IV ONCE PRN; Protocol PRN Reason: EtOH Withdrawal AWSS Score 10+ Lorazepam (Lorazepam 2 Mg/1 Ml Vial) 1 mg IV UD PRN; Protocol PRN Reason: EtOH Withdrawal AWSS Score 8,9 Stop: 11/10/22 23:32 Lorazepam (Lorazepam 2 Mg/1 Ml Vial) 0.5 mg IV UD PRN; Protocol PRN Reason: EtOH Withdrawal AWSS Score 6,7 Stop: 11/10/22 23:32 Multivitamins (Multivitamin Tab) 1 tab PO QAM [facility] Stop: 11/11/22 08:59 Last Admin: 10/14/22 09:52 Dose: 1 tab Sodium Chloride (Sodium Chlor 7% 4 Ml Neb) 4 ml NEB BIDR [facility] Stop: 11/11/22 18:59 Last Admin: 10/14/22 07:40 Dose: 4 ml Sodium Chloride (Sodium Chloride 1 Gm Tablet) 1 gm PO BID [facility] Stop: 11/12/22 11:14 Last Admin: 10/14/22 09:52 Dose: 1 gm Thiamine HCl (Thiamine Hcl 100 Mg Tab) 100 mg PO QAM [facility] Stop: 11/11/22 08:59 Last Admin: 10/14/22 09:52 Dose: 100 mg Umeclidinium Hulbert (Umeclidinium Hulbert 62.5mcg/Blister 7 Puffs/Inhaler) 1 puffs INH DAILY [facility] Stop: 11/11/22 08:59 Last Admin: 10/14/22 09:51 Dose: 1 puffs Urea (Urea (Urea-Na) 15 Gm Pack) 15 gm PO BID [facility] Stop: 11/12/22 11:14 Last Admin: 10/14/22 09:51 Dose: 15 gm
[2022-10-15] MEDS: HEPARIN SOD 5,000 UNIT/0.5 ML VIAL SQ SCH ×3 (04:40→21:11)
[2022-10-15] MEDS: AMPICILLIN/SULBACTAM SOD 3,000 MG in 0.9 % SODIUM CHLORIDE 100 ML IV SCH ×4 (04:40→21:13)
[2022-10-15] MEDS: SODIUM CHLOR 7% 4 ML NEB NEB SCH ×2 (07:43→19:48)
[2022-10-15] MEDS: LEVALBUTEROL 1.25 MG/3 ML NEB NEB PRN (07:43)
[2022-10-15] MEDS: FLUTICASONE/VILANTEROL 100/25MCG 14 PUFFS/INHALER INH SCH (08:28)
[2022-10-15] MEDS: UREA (UREA-NA) 15 GM PACK PO SCH ×2 (08:28→21:56)
[2022-10-15] MEDS: UMECLIDINIUM BROMIDE 62.5MCG/BLISTER 7 PUFFS/INHALER INH SCH (08:28)
[2022-10-15] MEDS: amLODIPine BESYLATE 5 MG TAB PO SCH (08:28)
[2022-10-15] MEDS: THIAMINE HCL 100 MG TAB PO SCH (08:29)
[2022-10-15] MEDS: MULTIVITAMIN TAB PO SCH (08:29)
[2022-10-15] MEDS: SODIUM CHLORIDE 1 GM TABLET PO SCH ×2 (08:29→21:56)
[2022-10-15] MEDS: DOXYCYCLINE HYCLATE 100 MG CAP PO SCH ×2 (08:29→21:56)
[2022-10-15] MEDS: FOLIC ACID 1 MG TAB PO SCH (08:29)
[2022-10-15 08:43] LABS: Basophils # (auto) 0.02 K/uL (0.00-0.20); Basophils % (auto) 0.2 %; Eosinophils # (auto) 0.02 K/uL (0.00-0.50); Eosinophils % (auto) 0.2 %; Hematocrit (blood only) 32.6 % (42.0-52.0); Hemoglobin 11.1 g/dl (14.0-18.0); Immature Granulocytes # (auto) 0.12 K/uL (0.01-0.20); Immature Granulocytes % (auto) 0.9 %; Lymphocytes # (auto) 0.82 K/uL (1.20-3.40); Lymphocytes % (auto) 6.2 %; Mean Corpuscular Hemoglobin 32.8 pg (25.0-34.0); Mean Corpuscular Volume 96.4 fL (80.0-100.0); Mean Platelet Volume 9.8 fL (9.4-12.4); Monocytes # (auto) 1.45 K/uL (0.11-0.59); Neutrophils # (auto) 10.79 K/uL (1.40-6.50); Neutrophils % (auto) 81.5 %; Platelet Count 375 K/uL (130-400); RDW Coefficient of Variation 12.9 % (11.5-14.5); RDW Standard Deviation 46.1 fL (36.4-46.3); Red Blood Count 3.38 M/uL (4.70-6.10); White Blood Count 13.22 K/ul (4.8-10.8)
[2022-10-15 09:10] LABS: BUN Creatinine Ratio 47.2 (10-20); Calcium 9.3 mg/dl (8.6-10.3); Est GFR (African American) 130.5 ml/min; Est GFR (Non-African American) 112.6 ml/min; Potassium 3.8 mmol/L (3.5-5.1)
--- NOTE | 2022-10-15 11:20 | Nephrology Progress Note ---
Date of Service October 15, 2022 Assessment & Plan Admission and Anticipated Discharge Date Admission Date: October 11, 2022 Subjective Assessment & Plan (1) COVID-19: Noted . It is not unusual to have hyponatremia with COVID-19 as we have seen in the last 3-year (2) Sepsis: Respiratory tract infection with COVID-19 as well as superimposed pneumonia causing sepsis (3) Acute hyponatremia: Patient is very cachectic and weighs 43 kg with a very poor appetite and significant weight loss in the last few month. History of heavy alcohol abuse but denies current use. Sodium was 124 and now it is already up to 130+. At this level he is out of danger and given his significant mild nutritional status sodium of 130 is very reasonable. 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 Continue FFR 1200 ml per day, Urea 15 gm bid, Salt tab 1 gm bid. S--no new issues. vitals good and on RA now. Physical Exam Physical Exam: GENERAL: comfortable, underweight,Mild respiratory distress SKIN: Normal color, warm HEENT: dry buccal mucosa NECK : Supple, no tenderness CHEST : Decreased breath sounds,no expiratory wheezes. occ crackles HEART : RRR, no obvious murmurs ABDOMEN: no distention, nontender EXTREMITIES : No LE swelling/tenderness, no other conspicuous deformities noted NEUROLOGIC : Coherent, no facial asymmetry, involuntary hand tremors noted Results & Data Vital Signs (Past 12 Hours) Vital Signs Temp Pulse Pulse Resp BP Pulse Ox O2 Del Method 10/15/22 08:26 36.7 C 98 H 18 116/70 96 Room Air 10/15/22 08:21 84 10/15/22 08:11 Room Air 10/15/22 07:43 96 H 20 96 Room Air 10/15/22 02:48 36.3 C L 92 H 18 127/71 97 Room Air 10/15/22 02:06 100 H
--- NOTE | 2022-10-15 15:28 | Hospitalist Progress Note ---
Date of Service October 15, 2022 Assessment & Plan (1) Sepsis: Plan: per admitting service notes with addendum: Severe COVID-pneumonia, with hypoxia Possible post obstructive left upper lobe pneumonia COPD exacerbation SIRS secondary to CAP, COVID-19 pneumonia, possible postobstructive pneumonia on CT imaging Currently weaned off oxygen, on room air Continue doxycycline, changed ceftriaxone to Zosyn--> day #2. d/c Decadron today on 10/13/2022 Pulmonary service consulted: CT chest in 3-4 weeks, outpatient Bronchoscopy Zosyn is changed to Unasyn from today that is 10/14/2022 and doxycycline continued Clinically much better denies any significant symptom Denies any respiratory symptoms and has been stable and saturating normally on room air Hyponatremia Possible SIADH secondary to pneumonia Sodium improving to 130s, 127--> 129 Continue fluid restriction Appreciate nephrology input and recommendation We will continue fluid restriction to 1200 mL/day, urea 15 g twice daily and oneyda t tablet 1 g twice daily Monitor PRP-sodium level has gone up to 133 with normal electrolytes HTN, stable hx PVD history of torsades de pointes chronic anemia, hemoglobin at baseline Hyperglycemia likely secondary to prediabetes, hemoglobin A1c of 5.7 last year malnutrition RE low BMI ongoing tobacco abuse. SONI S, DT precautions Nutrition consult RE low BMI Nicotine patch as needed Full code Disposition PT/OT eval may need acute rehab vs SNF-PT recommended rehab but the patient wants to go home with a walker Will need two-step exercise test prior to discharge Awaiting placement Admission and Anticipated Discharge Date Admission Date: October 11, 2022 Subjective 10/14/2022 The patient was seen and examined in medical telemetry unit and in the COVID room He denies any respiratory symptoms Denies any significant weakness and wants to go home and asking for a walker 10/15/2022 The patient was seen and examined in medical telemetry unit and in the COVID room He denies any respiratory symptoms and has not required any oxygen to maintain saturation Denies any other symptoms and awaiting placement Review of Systems Review of Systems: All systems reviewed and are unremarkable except as noted below Physical Exam Physical Exam: Sitting on a chair without any acute distress Constitutional: well developed, well nourished, + ill appearing and average body habitus Eyes: PERRL, conjunctivae normal, anicteric sclerae ENMT: external ear and nose normal, oropharynx normal Neck: trachea midline, no thyromegaly Respiratory: no respiratory distress Auscultation: + diminished lung sounds; no crackles (Minimal crackles at the bases) Gastrointestinal (Abdomen): Inspection/Auscultation: normal bowel sounds; abdomen not distended Percussion/Palpation: abdomen soft; abdomen nontender Neurologic: normal touch/pain/proprioception and moves all extremities; no focal motor deficits Lymphatic: no cervical or axillary lymphadenopathy Results & Data Results & Data Vital Signs (Past 12 Hours) Vital Signs Temp Pulse Pulse Resp BP Pulse Ox O2 Del Method 10/15/22 08:26 36.7 C 98 H 18 116/70 96 Room Air 10/15/22 08:21 84 10/15/22 08:11 Room Air 10/15/22 07:43 96 H 20 96 Room Air Laboratory Results Short CBC 10/15/22 Range/Units 08:13 WBC 13.22 H (4.8-10.8) K/ul Hgb 11.1 L (14.0-18.0) g/dl Hct 32.6 L (42.0-52.0) % Plt Count 375 (130-400) K/uL BMP 10/15/22 08:13 Sodium 133 L Potassium 3.8 Chloride 97 L Carbon Dioxide 29 BUN 25 H Creatinine 0.53 L Glucose 89 Calcium 9.3 Medications Administered Current Inpatient Medications Acetaminophen (Acetaminophen 325 Mg Tab) 650 mg PO Q4H PRN PRN Reason: Pain or Fever Stop: 11/11/22 01:35 Amlodipine Besylate (Amlodipine Besylate 5 Mg Tab) 5 mg PO QAM [facility] Stop: 11/11/22 08:59 Last Admin: 10/15/22 08:28 Dose: 5 mg Doxycycline Hyclate (Doxycycline Hyclate 100 Mg Cap) 100 mg PO BID [facility] Stop: 10/19/22 08:59 Last Admin: 10/15/22 08:29 Dose: 100 mg Fluticasone/Vilanterol (Fluticasone/Vilanterol 100/25mcg 14 Puffs/Inhaler) 1 puffs INH DAILY [facility] Stop: 11/11/22 08:59 Last Admin: 10/15/22 08:28 Dose: 1 puffs Folic Acid (Folic Acid 1 Mg Tab) 1 mg PO QAM [facility] Stop: 11/11/22 08:59 Last Admin: 10/15/22 08:29 Dose: 1 mg Gabapentin (Gabapentin 400 Mg Cap) 400 mg PO Q24H [facility] Stop: 10/16/22 02:01 Last Admin: 10/12/22 08:28 Dose: 400 mg Heparin Sodium (Porcine) (Heparin Sod 5,000 Unit/0.5 Ml Vial) 5,000 units SQ Q8 [facility] Stop: 11/11/22 05:59 Last Admin: 10/15/22 04:40 Dose: 5,000 units Promethazine HCl 6.25 mg/ (Sodium Chloride) 50.25 mls @ 201 mls/hr IV Q6H PRN PRN Reason: Nausea And Vomiting Stop: 11/11/22 01:35 Ampicillin Sodium/Sulbactam Sodium 3,000 mg/ Sodium Chloride 108 mls @ 216 mls/hr IV Q6H [facility]; Protocol Stop: 10/19/22 18:00 Last Infusion: 10/15/22 10:20 Dose: Infused Levalbuterol HCl (Levalbuterol 1.25 Mg/3 Ml Neb) 1.25 mg NEB Q4H PRN; Protocol PRN Reason: sob wheeze Stop: 11/11/22 05:44 Last Admin: 10/15/22 07:43 Dose: 1.25 mg Lorazepam (Lorazepam 2 Mg/1 Ml Vial) 2 mg IV ONCE PRN; Protocol PRN Reason: EtOH Withdrawal AWSS Score 10+ Lorazepam (Lorazepam 2 Mg/1 Ml Vial) 1 mg IV UD PRN; Protocol PRN Reason: EtOH Withdrawal AWSS Score 8,9 Stop: 11/10/22 23:32 Lorazepam (Lorazepam 2 Mg/1 Ml Vial) 0.5 mg IV UD PRN; Protocol PRN Reason: EtOH Withdrawal AWSS Score 6,7 Stop: 11/10/22 23:32 Multivitamins (Multivitamin Tab) 1 tab PO QAM [facility] Stop: 11/11/22 08:59 Last Admin: 10/15/22 08:29 Dose: 1 tab Sodium Chloride (Sodium Chlor 7% 4 Ml Neb) 4 ml NEB BIDR [facility] Stop: 11/11/22 18:59 Last Admin: 10/15/22 07:43 Dose: 4 ml Sodium Chloride (Sodium Chloride 1 Gm Tablet) 1 gm PO BID [facility] Stop: 11/12/22 11:14 Last Admin: 08/31/23 08:29 Dose: 1 gm Thiamine HCl (Thiamine Hcl 100 Mg Tab) 100 mg PO QAM [facility] Stop: 11/11/22 08:59 Last Admin: 10/15/22 08:29 Dose: 100 mg Umeclidinium [place] (Umeclidinium [place] 62.5mcg/Blister 7 Puffs/Inhaler) 1 puffs INH DAILY [facility] Stop: 11/11/22 08:59 Last Admin: 10/15/22 08:28 Dose: 1 puffs Urea (Urea (Urea-Na) 15 Gm Pack) 15 gm PO BID [facility] Stop: 11/12/22 11:14 Last Admin: 10/15/22 08:28 Dose: 15 gm
[2022-10-16] MEDS: GABAPENTIN 400 MG CAP PO SCH (02:03)
[2022-10-16] MEDS: AMPICILLIN/SULBACTAM SOD 3,000 MG in 0.9 % SODIUM CHLORIDE 100 ML IV SCH ×4 (04:59→20:20)
[2022-10-16] MEDS: HEPARIN SOD 5,000 UNIT/0.5 ML VIAL SQ SCH ×3 (05:00→20:04)
[2022-10-16] MEDS: SODIUM CHLOR 7% 4 ML NEB NEB SCH ×2 (07:51→20:28)
[2022-10-16 08:44] LABS: BUN Creatinine Ratio 56.5 (10-20); Calcium 8.8 mg/dl (8.6-10.3); Creatinine Clr Calc Pharmacy 100.4 ml/min; Est GFR (African American) 138.3 ml/min; Est GFR (Non-African American) 119.4 ml/min; Potassium 3.5 mmol/L (3.5-5.1)
[2022-10-16] MEDS: UREA (UREA-NA) 15 GM PACK PO SCH ×2 (09:41→20:04)
[2022-10-16] MEDS: DOXYCYCLINE HYCLATE 100 MG CAP PO SCH ×2 (09:41→20:03)
[2022-10-16] MEDS: MULTIVITAMIN TAB PO SCH (09:41)
[2022-10-16] MEDS: THIAMINE HCL 100 MG TAB PO SCH (09:41)
[2022-10-16] MEDS: FOLIC ACID 1 MG TAB PO SCH (09:41)
[2022-10-16] MEDS: SODIUM CHLORIDE 1 GM TABLET PO SCH ×2 (09:41→20:03)
[2022-10-16] MEDS: amLODIPine BESYLATE 5 MG TAB PO SCH (09:42)
[2022-10-16] MEDS: UMECLIDINIUM BROMIDE 62.5MCG/BLISTER 7 PUFFS/INHALER INH SCH (09:42)
[2022-10-16] MEDS: FLUTICASONE/VILANTEROL 100/25MCG 14 PUFFS/INHALER INH SCH (09:42)
[2022-10-16] MEDS ORDERED: HYDROmorphone INJ 0.5 MG/0.5 ML SYR IV PRN (11:35)
--- NOTE | 2022-10-16 13:22 | CT Scan Report ---
CT SCAN OF THE ABDOMEN AND PELVIS WITHOUT IV CONTRAST CLINICAL HISTORY: Symptomatic right inguinal hernia. COMPARISON STUDY: Abdominal CT dated 07/16/2016. TECHNIQUE: CT scan of the abdomen and pelvis is performed from the lung bases to the proximal femora. Images are reviewed in the axial, sagittal, and coronal planes. IV contrast was not administered for this examination. Note that the examination was performed in suboptimal fashion without oral and IV contrast A dose lowering technique was utilized adhering to the principles of ALARA. CT DOSE: 298.08 mGy.cm FINDINGS: Lung bases: The heart is normal in size noting a small pericardial effusion. The coronary arteries ar e densely calcified. Emphysematous change is noted at the lung bases with bibasilar scarring/atelecta sis. There is a small left pleural effusion. No airspace consolidation is seen typical for pneumonia. A mediastinal masslike opacity is again suggested on the package pick up tomogram. Liver: The unenhanced liver is normal in size, contour, and attenuation. There is no intrahepatic yeimy iary ductal dilatation. There is evidence of multifocal hepatic metastatic disease with greater than 10 lesions identified. A personal banking representative lesion in the left lobe on image #69 measures up to 1.6 cm. Gallbladder: The gallbladder is contracted and contains tiny calcified gallstones. Spleen: Normal in size and attenuation. Pancreas: The unenhanced pancreas is grossly unremarkable. Adrenal glands: Unremarkable. Kidneys: The unenhanced kidneys are normal in size and without hydronephrosis. There are no renal taisha culi identified. There is no evidence of contour deforming renal mass lesion. Abdominal vasculature: The abdominal aorta is normal in course and caliber noting advanced atheroscle rotic calcification. Bowel: There is moderate colonic fecal retention. No bowel obstruction is seen. The appendix is norm al as visualized. Peritoneum: There is no intraperitoneal free air or abdominal ascites. Lymphadenopathy: There is bulky right inguinal lymphadenopathy. The largest node is seen on image #24 1 and measures 3.0 x 1.8 cm. No inguinal adenopathy seen on the left. No additional pathologically en larged lymph nodes are seen in the abdomen or pelvis. Pelvic viscera: The prostate gland is enlarged and heterogeneous. The bladder wall is thickened/trabe culated indicating chronic outlet obstruction. There is no CT evidence of inguinal hernia. Skeletal structures: The skeletal structures are osteopenic. There is moderate lumbosacral spondylosi s. Bilateral pars defects are noted about L5 with advanced disc space narrowing and 11 mm retrolisthe sis at L5-S1. No lytic or blastic lesions are seen. There is a subacute-appearing left anterior 6th r ib fracture. IMPRESSION: 1. There is bulky/pathological right inguinal lymphadenopathy. This should be considered neoplastic u ntil proven otherwise and is likely the etiology of the patient's right groin symptoms. 2. Multifocal hepatic metastatic disease. 3. A left hilar/mediastinal mass lesion is again suggested on the package pick up tomogram. 4. Emphysema and trace left pleural effusion. 5. Cholelithiasis. 6. Additional findings as above. ACT 112: Positive. There are findings on this exam that require communication between the performing entity and the patient following Patient Test Result Information Act ([place] Act 112) guidelines. Electronically signed by: Fran Mccormick M.D. 10/16/2022 1:19 PM
--- NOTE | 2022-10-16 14:27 | Hospitalist Progress Note ---
Date of Service October 16, 2022 Assessment & Plan (1) Sepsis: Plan: per admitting service notes with addendum: Severe COVID-pneumonia, with hypoxia Possible post obstructive left upper lobe pneumonia COPD exacerbation SIRS secondary to CAP, COVID-19 pneumonia, possible postobstructive pneumonia on CT imaging Currently weaned off oxygen, on room air Continue doxycycline, changed ceftriaxone to Zosyn--> day #2. d/c Decadron today on 10/13/2022 Pulmonary service consulted: CT chest in 3-4 weeks, outpatient Bronchoscopy Zosyn is changed to Unasyn from today that is 10/14/2022 and doxycycline continued Clinically much better denies any significant symptom Denies any respiratory symptoms and has been stable and saturating normally on room air Remains stable without any respiratory symptoms Right inguinal swelling Local examination showed a very tender and firm nodule involving the right mid inguinal area just below the ligament Not pulsatile and not having any bowel sound and not reducible CT scan of the abdomen and pelvis did not show enlarged lymph node Surgery consulted for possible excision biopsy Patient does have lymphadenopathy in other areas including mediastinum Hyponatremia Possible SIADH secondary to pneumonia Sodium improving to 130s, 127--> 129 Continue fluid restriction Appreciate nephrology input and recommendation We will continue fluid restriction to 1200 mL/day, urea 15 g twice daily and salt tablet 1 g twice daily Monitor PRP-sodium level has gone up to 133 with normal electrolytes Sodium level has been normalized HTN, stable hx PVD history of torsades de pointes chronic anemia, hemoglobin at baseline Hyperglycemia likely secondary to prediabetes, hemoglobin A1c of 5.7 last year malnutrition RE low BMI ongoing tobacco abuse. SONI S, DT precautions Nutrition consult RE low BMI Nicotine patch as needed Full code Disposition PT/OT eval may need acute rehab vs SNF-PT recommended rehab but the patient wants to go home with a walker Will need two-step exercise test prior to discharge Awaiting placement Admission and Anticipated Discharge Date Admission Date: October 11, 2022 Subjective 10/14/2022 The patient was seen and examined in medical telemetry unit and in the COVID room He denies any respiratory symptoms Denies any significant weakness and wants to go home and asking for a walker 10/15/2022 The patient was seen and examined in medical telemetry unit and in the COVID room He denies any respiratory symptoms and has not required any oxygen to maintain saturation Denies any other symptoms and awaiting placement 10/16/2022 The patient was seen and examined in medical telemetry unit He complains of acute pain involving the right groin with a lump and on asking question he mentioned that he has minimal pain yesterday He denies any respiratory symptoms Denies any nausea or vomiting Review of Systems Review of Systems: All systems reviewed and are unremarkable except as noted below Musculoskeletal: Severe pain and swelling involving the right groin Physical Exam Physical Exam: Lying in bed with severe pain in the right groin associated with the lump Constitutional: well developed, well nourished, + ill appearing and average body habitus Eyes: PERRL, conjunctivae normal, anicteric sclerae ENMT: external ear and nose normal, oropharynx normal Neck: trachea midline, no thyromegaly Respiratory: no respiratory distress Auscultation: + diminished lung so unds; no crackles (Minimal crackles at the bases) Cardiovascular: Rate/Rhythm: regular rate, regular rhythm and + tachycardic Heart Sounds: normal S1 and normal S2; no murmur Gastrointestinal (Abdomen): Inspection/Auscultation: normal bowel sounds; abdomen not distended Percussion/Palpation: abdomen soft; abdomen nontender Examination of the right groin-if firm and very tender lump about 2.5 cm x 1.5 cm over the right mid groin below the inguinal ligament. Not pulsatile and no adjacent cellulitis. No bowel sound Musculoskeletal: No acute arthritis involving any joint Neurologic: normal touch/pain/proprioception and moves all extremities; no focal motor deficits Lymphatic: no cervical or axillary lymphadenopathy Results & Data Results & Data Vital Signs (Past 12 Hours) Vital Signs Temp Pulse Resp BP Pulse Ox O2 Del Method 10/16/22 11:19 36.7 C 103 H 16 138/81 93 Room Air 10/16/22 10:39 Room Air 10/16/22 09:10 36.7 C 103 H 17 134/77 99 Room Air 10/16/22 07:51 106 H 16 93 Room Air 10/16/22 03:02 37.1 C 97 H 16 156/84 H 91 Room Air Laboratory Results [facility] 10/16/22 07:32 Sodium 136 Potassium 3.5 Chloride 101 Carbon Dioxide 28 BUN 26 H Creatinine 0.46 L Glucose 86 Calcium 8.8 Medications Administered Current Inpatient Medications Acetaminophen (Acetaminophen 325 Mg Tab) 650 mg PO Q4H PRN PRN Reason: Pain or Fever Stop: 11/11/22 01:35 Amlodipine Besylate (Amlodipine Besylate 5 Mg Tab) 5 mg PO QAM [facility] Stop: 11/11/22 08:59 Last Admin: 10/16/22 09:42 Dose: 5 mg Doxycycline Hyclate (Doxycycline Hyclate 100 Mg Cap) 100 mg PO BID [facility] Stop: 10/19/22 08:59 Last Admin: 10/16/22 09:41 Dose: 100 mg Fluticasone/Vilanterol (Fluticasone/Vilanterol 100/25mcg 14 Puffs/Inhaler) 1 puffs INH DAILY [facility] Stop: 11/11/22 08:59 Last Admin: 10/16/22 09:42 Dose: 1 puffs Folic Acid (Folic Acid 1 Mg Tab) 1 mg PO QAM [facility] Stop: 11/11/22 08:59 Last Admin: 10/16/22 09:41 Dose: 1 mg Heparin Sodium (Porcine) (Heparin Sod 5,000 Unit/0.5 Ml Vial) 5,000 units SQ Q8 [facility] Stop: 11/11/22 05:59 Last Admin: 10/16/22 05:00 Dose: 5,000 units Hydromorphone HCl (Hydromorphone Inj 0.5 Mg/0.5 Ml Syr) 0.25 mg IV Q3H PRN PRN Reason: Pain Stop: 10/30/22 11:34 Promethazine HCl 6.25 mg/ (Sodium Chloride) 50.25 mls @ 201 mls/hr IV Q6H PRN PRN Reason: Nausea And Vomiting Stop: 11/11/22 01:35 Last Infusion: 10/15/22 23:06 Dose: Infused Ampicillin Sodium/Sulbactam Sodium 3,000 mg/ Sodium Chloride 108 mls @ 216 mls/hr IV Q6H [facility]; Protocol Stop: 10/19/22 18:00 Last Infusion: 10/16/22 11:18 Dose: Infused Levalbuterol HCl (Levalbuterol 1.25 Mg/3 Ml Neb) 1.25 mg NEB Q4H PRN; Protocol PRN Reason: sob wheeze Stop: 11/11/22 05:44 Last Admin: 10/15/22 07:43 Dose: 1.25 mg Lorazepam (Lorazepam 2 Mg/1 Ml Vial) 2 mg IV ONCE PRN; Protocol PRN Reason: EtOH Withdrawal AWSS Score 10+ Lorazepam (Lorazepam 2 Mg/1 Ml Vial) 1 mg IV UD PRN; Protocol PRN Reason: EtOH Withdrawal AWSS Score 8,9 Stop: 11/10/22 23:32 Lorazepam (Lorazepam 2 Mg/1 Ml Vial) 0.5 mg IV UD PRN; Protocol PRN Reason: EtOH Withdrawal AWSS Score 6,7 Stop: 11/10/22 23:32 Multivitamins (Multivitamin Tab) 1 tab PO QAM [facility] Stop: 11/11/22 08:59 Last Admin: 10/16/22 09:41 Dose: 1 tab Sodium Chloride (Sodium Chlor 7% 4 Ml Neb) 4 ml NEB BIDR [facility] Stop: 11/11/22 18:59 Last Admin: 10/16/22 07:51 Dose: 4 ml Sodium Chloride (Sodium Chloride 1 Gm Tablet) 1 gm PO BID [facility] Stop: 11/12/22 11:14 Last Admin: 10/16/22 09:41 Dose: 1 gm Thiamine HCl (Thiamine Hcl 100 Mg Tab) 100 mg PO QAM [facility] Stop: 11/11/22 08:59 Last Admin: 10/16/22 09:41 Dose: 100 mg Umeclidinium [place] (Umeclidinium [place] 62.5mcg/Blister 7 Puffs/Inhaler) 1 puffs INH DAILY [facility] Stop: 11/11/22 08:59 Last Admin: 10/16/22 09:42 Dose: 1 puffs Urea (Urea (Urea-Na) 15 Gm Pack) 15 gm PO BID [facility] Stop: 11/12/22 11:14 Last Admin: 10/16/22 09:41 Dose: 15 gm
--- NOTE | 2022-10-16 14:48 | Surgery Consultation ---
Date of Consultation October 16, 2022 Assessment & Plan (1) Inguinal lymphadenopathy: Patient is a 62 year old M with a PMH of alcohol, tobacco abuse, HTN, PVD, COPD, CAP, presented to [facility] 10/11/22 with c/o SOB. Patient was admitted to the hospital and was found to be COVID 19 +, he underwent CT of chest 10/11/22 which showed : Findings are suggestive of pneumonia. An obstructing potential endobronchial mass could also be present. General surgery was consulted because the patient has a c/o right inguinal pain/ lymphadenopathy, reports has been present for the last 3 days, describes pain as "stabbing" without numbness/ tingling, and non-radiating. Patient reports ambulation is not affected by pain or lymphadenopathy. A CT of abdomen and pelvis which was done today 10/16/22 reads: There is bulky/pathological right inguinal lymphadenopathy. This should be considered neoplastic until proven otherwise and is likely the etiology of the patient's right groin symptoms. 2. Multifocal hepatic metastatic disease. 3. A left hilar/mediastinal mass lesion is again suggested on the cotton baler tomog alma. 4. Emphysema and trace left pleural effusion. 5. Cholelithiasis. A enlarged right inguinal lymph node is noted, tender to palpation and is firm, non-fix and mobile. Patient is currently in an isolation room, saturating in the 90's on RA. No acute surgical intervention indicated at this time given the COVID + status of the patient, however it is advised that the patient follow up with general surgery or IR for a biopsy of the lymph node given the results of his CT imagining once is pasted his isolation period. Supervising Physician Co-Signing Physician Notes This case was discussed with the surgical PA and I agree with the plan. History of Present Illness Reason for Consultation: Right inguinal lymphadenopathy Requesting Physician: Dr. Gonsales Attending Physician: Milton Gonsales MD History of Present Illness Patient is a 62 year old M with a PMH of alcohol, tobacco abuse, HTN, PVD, COPD, CAP, presented to [facility] 10/11/22 with c/o SOB. Patient was admitted to the hospital and was found to be COVID 19 +, he underwent CT of chest 10/11/22 which showed : Findings are suggestive of pneumonia. An obstructing potential endobronchial mass could also be present. General surgery was consulted because the patient has a c/o right inguinal pain/lymphadenopathy. Has been present for the last 3 days, describes pain as "stabbing" without numbness/ tingling, and non-radiating. Patient reports ambulation is not affected by pain or lymphadenopathy. Allergies Allergy/AdvReac Type Severity Reaction Status Date / Time No Known Allergies Allergy Unverified 10/11/22 21:09 Home Medications Medication Instructions Recorded Confirmed Type fluticasone 100 mcg-salmeterol 50 1 inh inhalation DAILY #60 ea 10/14/21 10/11/22 Rx mcg/dose blistr powdr for inhalation (Advair Diskus) tiotropium bromide 18 mcg capsule 1 cap inhalation DAILY #2 10/14/21 10/11/22 Rx with inhalation device inhalations albuterol sulfate 90 mcg/actuation 2 puff inhalation Q6H PRN 01/16/22 10/11/22 Rx aerosol inhaler Shortness Of Breath #8.5 grams amlodipine 5 mg tablet 5 mg PO QAM #30 tabs 01/16/22 10/11/22 Rx amoxicillin 500 mg-potassium 1 tab PO BID #8 tabs 10/17/22 Rx clavulanate 125 mg tablet doxycycline hyclate 100 mg capsule 100 mg PO BID #8 caps 10/17/22 Rx folic acid 1 mg tablet 1 mg PO QAM #30 tabs 10/17/22 Rx multivitamin with folic acid 400 1 tab PO QAM #30 tabs 10/17/22 Rx mcg tablet (Daily-Logan (with folic acid)) thiamine HCl (vitamin B1) 100 mg 100 mg PO QAM #30 tabs 10/17/22 Rx tablet Patient History Medical History Atherosclerosis of lower extremity with intermittent claudication "right leg" COPD (chronic obstructive pulmonary disease) History of torsades de pointes Hypertension Tobacco use disorder Surgical History History of dental surgery S/P tonsillectomy and adenoidectomy Family History Mother Diabetes Heart disease Social History (Reviewed 10/16/22 @ 14:59 by ONUR Schwartz Smoking Status: Current every day smoker Tobacco Type: Cigarettes Cigarettes Per Day: 1 ppd; Second Hand Exposure: No; Do You Dip or Chew Tobacco: No; Hx Alcohol Use: Yes Alcohol type: beer and hard liquor Hx Substance Use: No Preferred Language: Nepalese Communication Ability: Effective Chief Controller Required: No Beliefs That Will Affect Care: None Current Living Situation: Alone Feels Safe at Home: Yes Assistive Devices: None Review of Systems Constitutional: + weakness Hematologic / Lymphatic: + lymphadenopathy (Right enlarged inguinal lymph node pain ) Physical Exam Physical Exam: sleeping, easy to arouse Constitutional: + thin, + frail appearing and cooperative; + not well nourished and no acute distress Gastrointestinal (Abdomen): Inspection/Auscultation: abdomen not distended Percussion/Palpation: abdomen soft; no guarding Lymphatic: + inguinal lymphadenopathy (right, TTP enlarged, firm and mobile ) Results & Data Vital Signs (Past 12 Hours) Vital Signs Temp Pulse Resp BP Pulse Ox O2 Del Method 10/16/22 11:19 98.1 F 103 H 16 138/81 93 Room Air 10/16/22 10:39 Room Air 10/16/22 09:10 98.1 F 103 H 17 134/77 99 Room Air 10/16/22 07:51 106 H 16 93 Room Air 10/16/22 03:02 98.8 F 97 H 16 156/84 H 91 Room Air Diagnostic Findings [place], [place] [phone] CT Scan Report Patient:JOSELITO YUAN Admit Date:10/11/22 MR#:[id number] Address1:[address] [place] [address] Acct ID:[id number] Address2: Date:1960 [facility] Zip:[place] [address] Age:62 Location:ED Sex:M Room/Bed: Att Phy: Diagnosis:CHEST PAIN, DIFFICULTY BREATHING Jennifer Phy:Macario Rajput MD Service Date:10/11/22 Fam Phy: Interpreting Phy:Ric Garcia MDAdmit Phy: Ordering Phy:Manjit Garza DO cc: ~ Exam(s): CTA CHEST IV Amt: OPTIRAY 350 117ML EXAM: CT Angiography Chest With Intravenous Contrast CLINICAL HISTORY: Reason for exam: PE. TECHNIQUE: Axial computed tomographic angiography images of the chest with intravenous contrast. CTDI is 30 mGy and DLP is 318.19 mGy-cm. Automated exposure control was utilized for the study. A dose lowering technique was utilized adhering to the principles of ALARA. MIP reconstructed images were created and reviewed. COMPARISON: 01/13/2022 FINDINGS: Pulmonary arteries: No pulmonary embolism. Aorta: No acute findings. Normal caliber. No dissection. 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 Lungs: Consolidation and collapse throughout the left upper. Obstruction of the bronchi to the left upper lobe and lingula. Narrowing of the left lower lobe bronchus and scattered tree-in-bud nodularity throughout the left lower lobe. The right lung is clear. Pleural space: Unremarkable. Heart: Unremarkable. Bones/joints: No acute fracture. Soft tissues: Unremarkable. Lymph nodes: Unremarkable. IMPRESSION: 1. No pulmonary embolism. 2. Consolidation and collapse throughout the left upper. Obstruction of the bronchi to the left upper lobe and lingula. Narrowing of the left lower lobe bronchus and scattered tree-in-bud nodularity throughout the left lower lobe. Findings are suggestive of pneumonia. An obstructing potential endobronchial mass could also be present. Consider bronchoscopy. 3. 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 Electronically signed by: Ric Garcia MD 10/11/22 21:55 PM Dictated:10/11/222154 Transcribed: 10/11/222154 [place], [place] [phone] CT Scan Report Patient:JOSELITO YUAN Admit Date:10/11/22 MR#:[id number] Address1:[address] [place] [address] Acct ID:[id number] Address2: Date:1960 [facility] Zip:[place] [address] Age:62 Location:2N Sex:M Room/Bed:[facility] Att Phy:Milton Gonsales MD Diagnosis:SEPSIS,COVID Jennifer Phy:Macario Rajput MD Service Date:10/16/22 Fam Phy: Interpreting Phy:Fran Mccormick MDAdmit Phy:Mak Altman MD Ordering Phy:Milton Gonsales MD cc: ~ CT SCAN OF THE ABDOMEN AND PELVIS WITHOUT IV CONTRAST CLINICAL HISTORY: Symptomatic right inguinal hernia. COMPARISON STUDY: Abdominal CT dated 07/16/2016. TECHNIQUE: CT scan of the abdomen and pelvis is performed from the lung bases to the proximal femora. Images are reviewed in the axial, sagittal, and coronal planes. IV contrast was not administered for this examination. Note that the examination was performed in suboptimal fashion without oral and IV contrast A dose lowering technique was utilized adhering to the principles of ALARA. CT DOSE: 298.08 mGy.cm FINDINGS: Lung bases: The heart is normal in size noting a small pericardial effusion. The coronary arteries are densely calcified. Emphysematous change is noted at the lung bases with bibasilar scarring/atelectasis. There is a small left pleural effusion. No airspace consolidation is seen typical for pneumonia. A mediastinal masslike opacity is again suggested on the cotton baler tomogram. Liver: The unenhanced liver is normal in size, contour, and attenuation. There is no intrahepatic biliary ductal dilatation. There is evidence of multifocal hepatic metastatic disease with greater than 10 lesions identified. A media sales representative lesion in the left lobe on image #69 measures up to 1.6 cm. Gallbladder: The gallbladder is contracted and contains tiny calcified gallstones. Spleen: Normal in size and attenuation. Pancreas: The unenhanced pancreas is grossly unremarkable. Adrenal glands: Unremarkable. Kidneys: The unenhanced kidneys are normal in size and without hydronephrosis. There are no renal calculi identified. There is no evidence of contour deforming renal mass lesion. Abdominal vasculature: The abdominal aorta is normal in course and caliber noting advanced atherosclerotic calcification. Bowel: There is moderate colonic fecal retention. No bowel obstruction is seen. The appendix is normal as visualized. Peritoneum: There is no intraperitoneal free air or abdominal ascites. Lymphadenopathy: There is bulky right inguinal lymphadenopathy. The largest node is seen on image #241 and measures 3.0 x 1.8 cm. No inguinal adenopathy seen on the left. No additional pathologically enlarged lymph nodes are seen in the abdomen or pelvis. Pelvic viscera: The prostate gland is enlarged and heterogeneous. The bladder wall is thickened/trabeculated indicating chronic outlet obstruction. There is no CT evidence of inguinal hernia. Skeletal structures: The skeletal structures are osteopenic. There is moderate lumbosacral spondylosis. Bilateral pars defects are noted about L5 with advanced disc space narrowing and 11 mm retrolisthesis at L5-S1. No lytic or blastic lesions are seen. There is a subacute-appearing left anterior 6th rib fracture. IMPRESSION: 1. There is bulky/pathological right inguinal lymphadenopathy. This should be considered neoplastic until proven otherwise and is likely the etiology of the patient's right groin symptoms. 2. Multifocal hepatic metastatic disease. 3. A left hilar/mediastinal mass lesion is again suggested on the cotton baler tomogram. 4. Emphysema and trace left pleural effusion. 5. Cholelithiasis. 6. Additional findings as above. ACT 112: Positive. There are findings on this exam that require communication between the performing entity and the patient following Patient Test Result Information Act ([place] Act 112) guidelines. Electronically signed by: Fran Mccormick M.D. 10/16/2022 1:19 PM Dictated:10/16/22 1306 Transcribed: 10/16/22 1306 PG Care Time/CCT Total # of Minutes Spent Total Time Spent with Patient: Total time spent is greater than 50% in coordination of care (as documented) at patient's floor/unit and/or counseling patient: Coding Level of Care Code 58383 INT INP/OBS CARE 2/55MIN Diagnoses Inguinal lymphadenopathy R59.0
[2022-10-17] MEDS: AMPICILLIN/SULBACTAM SOD 3,000 MG in 0.9 % SODIUM CHLORIDE 100 ML IV SCH (03:19)
[2022-10-17] MEDS: HEPARIN SOD 5,000 UNIT/0.5 ML VIAL SQ SCH (07:17)
[2022-10-17 07:32] LABS: BUN Creatinine Ratio 67.4 (10-20); Calcium 8.9 mg/dl (8.6-10.3); Creatinine Clr Calc Pharmacy 107.1 ml/min; Est GFR (African American) 138.3 ml/min; Est GFR (Non-African American) 119.4 ml/min; Potassium 3.4 mmol/L (3.5-5.1)
[2022-10-17] MEDS: SODIUM CHLOR 7% 4 ML NEB NEB SCH (07:51)
--- NOTE | 2022-10-17 10:40 | Hospitalist Progress Note ---
Date of Service October 17, 2022 Assessment & Plan (1) Sepsis: Plan: per admitting service notes with addendum: Severe COVID-pneumonia, with hypoxia Possible post obstructive left upper lobe pneumonia COPD exacerbation SIRS secondary to CAP, COVID-19 pneumonia, possible postobstructive pneumonia on CT imaging Currently weaned off oxygen, on room air Continue doxycycline, changed ceftriaxone to Zosyn--> day #2. d/c Decadron today on 10/13/2022 Pulmonary service consulted: CT chest in 3-4 weeks, outpatient Bronchoscopy Zosyn is changed to Unasyn from today that is 10/14/2022 and doxycycline continued Clinically much better denies any significant symptom Denies any respiratory symptoms and has been stable and saturating normally on room air Remains stable without any respiratory symptoms He signed out AMA Right inguinal swelling Local examination showed a very tender and firm nodule involving the right mid inguinal area just below the ligament Not pulsatile and not having any bowel sound and not reducible CT scan of the abdomen and pelvis did not show enlarged lymph node Surgery consulted for possible excision biopsy Patient does have lymphadenopathy in other areas including mediastinum Appreciate surgery input and recommendation for outpatient surgical procedure excision and biopsy of the lymph node Hyponatremia Possible SIADH secondary to pneumonia Sodium improving to 130s, 127--> 129 Continue fluid restriction Appreciate nephrology input and recommendation We will continue fluid restriction to 1200 mL/day, urea 15 g twice daily and salt tablet 1 g twice daily Monitor PRP-sodium level has gone up to 133 with normal electrolytes Sodium level has been normalized Advised to continue small amount of salt in diet HTN, stable hx PVD history of torsades de pointes chronic anemia, hemoglobin at baseline Hyperglycemia likely secondary to prediabetes, hemoglobin A1c of 5.7 last year malnutrition RE low BMI ongoing tobacco abuse. SONI S, DT precautions Nutrition consult RE low BMI Nicotine patch as needed Full code Disposition PT/OT eval may need acute rehab vs SNF-PT recommended rehab but the patient wants to go home with a walker Will need two-step exercise test prior to discharge Awaiting placement He did not wait for the placement and signed out AMA Admission and Anticipated Discharge Date Admission Date: October 11, 2022 Subjective 10/14/2022 The patient was seen and examined in medical telemetry unit and in the COVID room He denies any respiratory symptoms Denies any significant weakness and wants to go home and asking for a walker 10/15/2022 The patient was seen and examined in medical telemetry unit and in the COVID room He denies any respiratory symptoms and has not required any oxygen to maintain saturation Denies any other symptoms and awaiting placement 10/16/2022 The patient was seen and examined in medical telemetry unit He complains of acute pain involving the right groin with a lump and on asking question he mentioned that he has minimal pain yesterday He denies any respiratory symptoms Denies any nausea or vomiting 10/17/2022 The patient was seen and examined in medical telemetry unit He has been doing much better and denies any significant symptoms Minimal shortness of breath at rest and still has right inguinal pain He wants to sign out AMA and in fact he did sign out AMA Review of Systems Review of Systems: All systems reviewed and are unremarkable except as noted below Musculoskeletal: Severe pain and swelling involving the right groin Physical Exam Physical Exam: Lying in bed with severe pain in the right groin associated with the lump Constitutional: well developed, well nourished, + ill appearing and average body habitus Eyes: PERRL, conjunctivae normal, anicteric sclerae ENMT: external ear and nose normal, oropharynx normal Neck: trachea midline, no thyromegaly Respiratory: no respiratory distress Auscultation: + diminished lung sounds; no crackles (Minimal crackles at the bases) Cardiovascular: Rate/Rhythm: regular rate, regular rhythm and + tachycardic Heart Sounds: normal S1 and normal S2; no murmur Gastrointestinal (Abdomen): Inspection/Auscultation: normal bowel sounds; abdomen not distended Percussion/Palpation: abdomen soft; abdomen nontender Neurologic: normal touch/pain/proprioception and moves all extremities; no focal motor deficits Lymphatic: no cervical or axillary lymphadenopathy Results & Data Results & Data Vital Signs (Past 12 Hours) Vital Signs Temp Pulse Resp BP Pulse Ox O2 Del Method 10/17/22 08:57 36.7 C 113 H 20 117/75 96 Room Air 10/17/22 03:21 36.8 C 82 14 143/80 H 96 Room Air 10/16/22 23:24 36.8 C 105 H 18 105/68 96 Room Air Laboratory Results [facility] 10/17/22 06:26 Sodium 135 L Potassium 3.4 L Chloride 100 Carbon Dioxide 27 BUN 31 H Creatinine 0.46 L Glucose 88 Calcium 8.9
[2022-10-17] MEDS ORDERED: POTASSIUM CHLORIDE CRTAB 20 MEQ TABCR PO SCH (11:45)
--- NOTE | 2022-10-17 12:18 | Surgery Progress Note ---
Date of Service October 17, 2022 Assessment & Plan (1) Inguinal lymphadenopathy: (2) Abnormal chest CT: (3) Pneumonia: (4) COVID-19: Plan: Evaluation for request of surgical diagnosis Patient has been admitted for more than a week and would like to be discharged May have work up as an outpatient IR may be considered as the patient has lung compromise with evidence for bulky hilar/perihilar disease (likely metastatic) not safe for general anesthesia and recently diagnosed with COVID PNA. If IR samples would be non-diagnostic or otherwise not preferred after IR evaluation, he may follow up with surgery for consideration of a more invasive approach. Admission and Anticipated Discharge Date Admission Date: October 11, 2022 Subjective Patient was seen this am. Very annoyed and would like to go home as he says he is tired of being here. He states he came due to feeling very weak at home which he says has resolved. He says the right groin pain is minimally present and not debilitating. Physical Exam Constitutional: + cachectic, + frail appearing and + disheveled; no acute distress and not diaphoretic Lymphatic: There is bulky right groin lymphadenopathy that is visible beneath the skin. There is no thickening of the skin overlying this area and no protrusion through the skin. The patient does express some TTP but says this is improved. Results & Data Vital Signs (Past 12 Hours) Vital Signs Temp Pulse Resp BP Pulse Ox O2 Del Method 10/17/22 08:57 36.7 C 113 H 20 117/75 96 Room Air 10/17/22 03:21 36.8 C 82 14 143/80 H 96 Room Air PG Care Time/CCT Total # of Minutes Spent Total Time Spent with Patient: Total time spent is greater than 50% in coordination of care (as documented) at patient's floor/unit and/or counseling patient: Coding Level of Care Code 00323 SUB INP/OBS CARE 03/11MIN Diagnoses Inguinal lymphadenopathy R59.[address] R93.89 Pneumonia J18.9 COVID-19 U07.1
--- NOTE | 2022-10-17 15:06 | Discharge Summary ---
Date of Service October 17, 2022 Admission HPI Per Admitting Provider History obtained from patient and records. Medical history significant for HTN, PVD, COPD, chronic hyponatremia, history of torsades de pointes,chronic anemia (baseline hemoglobin of 13), history alcohol abuse, ongoing tobacco abuse. Last confinement January 2022 for COPD exacerbation and alcohol abuse. 3 weeks history of cough symptoms productive of clear sputum. Pleuritic chest pain with worsening shortness of breath. Denies aspiration. No known sick contacts. Patient has not received COVID-19 vaccination. Poor appetite. Ten pound weight loss over the last 6 months as per patient. Patient received Solu-Medrol, Ceftriaxone, and Azithromycin at the ER for sepsis. Lowest O2 sats at the ER 91 on room air. MEDICAL HISTORY: As above. SURGERIES: He has had tonsillectomy, adenoidectomy, dental surgery. 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 Admission Exam Per Admitting Provider Physical Exam: GENERAL: comfortable, underweight, tremulous, no respiratory distress SKIN: Normal color, warm HEENT: [place] palpebral conjunctivae, no ptosis, dry buccal mucosa NECK : Supple, no tenderness CHEST : Decreased breath sounds,no expiratory wheezes, no tenderness HEART : RRR, no obvious murmurs ABDOMEN: no distention, nontender EXTREMITIES : No LE swelling/tenderness, no other conspicuous deformities noted NEUROLOGIC : Coherent, no facial asymmetry, involuntary hand tremors noted Principal Diagnosis COVID-19 virus infection, lymphadenopathy with right groin pain Discharge Exam Lying in bed with severe pain in the right groin associated with the lump Constitutional well developed, well nourished, + ill appearing and average body habitus Eyes PERRL, conjunctivae normal, anicteric sclerae ENMT external ear and nose normal, oropharynx normal Neck trachea midline, no thyromegaly Respiratory no respiratory distress Auscultation: + diminished lung sounds; no crackles (Minimal crackles at the bases) Cardiovascular Rate/Rhythm: regular rate, regular rhythm and + tachycardic Heart Sounds: normal S1 and normal S2; no murmur Gastrointestinal (Abdomen) Inspection/Auscultation: normal bowel sounds; abdomen not distended Percussion/Palpation: abdomen soft; abdomen nontender Neurologic normal touch/pain/proprioception and moves all extremities; no focal motor deficits Lymphatic no cervical or axillary lymphadenopathy Discharge Data Allergies Allergy/AdvReac Type Severity Reaction Status Date / Time No Known Allergies Allergy Unverified 10/11/22 21:09 Consultations 10/11/22 21:03 ED Decision to Admit Stat 10/12/22 01:36 Consult Pulmonology Routine 10/12/22 07:59 Consult Nephrology Routine 10/16/22 13:51 Consult General Surgery Routine Ordered Studies 10/11/22 19:40 CT angio chest PE protocol Stat 10/16/22 11:34 CT Abd and Pelvis [CT abd pelvis wo con] Urgent Hospital Course (1) Sepsis: per admitting service notes with addendum: Severe COVID-pneumonia, with hypoxia Possible post obstructive left upper lobe pneumonia COPD exacerbation SIRS secondary to CAP, COVID-19 pneumonia, possible postobstructive pneumonia on CT imaging Currently weaned off oxygen, on room air Continue doxycycline, changed ceftriaxone to Zosyn--> day #2. d/c Decadron today on 10/13/2022 Pulmonary service consulted: CT chest in 3-4 weeks, outpatient Bronchoscopy Zosyn is changed to Unasyn from today that is 10/14/2022 and doxycycline continued Clinically much better denies any significant symptom Denies any respiratory symptoms and has been stable and saturating normally on room air Remains stable without any respiratory symptoms He signed out AMA Right inguinal swelling Local examination showed a very tender and firm nodule involving the right mid inguinal area just below the ligament Not pulsatile and not having any bowel sound and not reducible CT scan of the abdomen and pelvis did not show enlarged lymph node Surgery consulted for possible excision biopsy Patient does have lymphadenopathy in other areas including mediastinum Appreciate surgery input and recommendation for outpatient surgical procedure excision and biopsy of the lymph node Hyponatremia Possible SIADH secondary to pneumonia Sodium improving to 130s, 127--> 129 Continue fluid restriction Appreciate nephrology input and recommendation We will continue fluid restriction to 1200 mL/day, urea 15 g twice daily and salt tablet 1 g twice daily Monitor PRP-sodium level has gone up to 133 with normal electrolytes Sodium level has been normalized Advised to continue small amount of salt in diet HTN, stable hx PVD history of torsades de pointes chronic anemia, hemoglobin at baseline Hyperglycemia likely secondary to prediabetes, hemoglobin A1c of 5.7 last year malnutrition RE low BMI ongoing tobacco abuse. SONI S, DT precautions Nutrition consult RE low BMI Nicotine patch as needed Full code Disposition PT/OT eval may need acute rehab vs SNF-PT recommended rehab but the patient wants to go home with a walker Will need two-step exercise test prior to discharge Awaiting placement He did not wait for the placement and signed out AMA Total Time Total Time Spent Total Time Spent (In Minutes): 35 minutes Discharge Plan Discharge Items Patient Disposition: Against Medical Advice Reason For Visit: SEPSIS,COVID Activity: As commented below Activity Comment: Please take extreme precautions to avoid falls Non-emergency contact: Primary Care Provider Follow-up/Referrals: Macario Rajput MD [Primary Care Provider] - Addtl Associate Programmer Provider Instructions: Please take precautions to avoid falls You need to be in home isolation until 10/22/2022 Keep appointment with your medical providers Home Isolation COVID-19 Instructions The following information about Home Isolation is from the CDC Website: https://www.cdc.gov/coronavirus/2019-ncov/hcp/cfqnymsd-hxwnzfw-nebcgv.html Stay home except to get medical care People who are mildly ill with COVID-19 are able to isolate at home during their illness. You should restrict activities outside your home, except for getting medical care. Do not go to work, school, or public areas. Avoid using public transportation, ride-sharing, or taxis. Separate yourself from other people and animals in your home People: As much as possible, you should stay in a specific room and away from other people in your home. Also, you should use a separate bathroom, if available. Animals: You should restrict contact with pets and other animals while you are sick with COVID-19, just like you would around other people. Although there have not been reports of pets or other animals becoming sick with COVID-19, it is still recommended that people sick with COVID-19 limit contact with animals until more information is known about the virus. When possible, have another member of your household care for your animals while you are sick. If you are sick with COVID-19, avoid contact with your pet, including petting, snuggling, being kissed or licked, and sharing food. If you must care for your pet or be around animals while you are sick, wash your hands before and after you interact with pets and wear a face mask. Call ahead before visiting your doctor If you have a medical appointment, call the healthcare provider and tell them that you have or may have COVID-19. This will help the healthcare providers office take steps to keep other people from getting infected or exposed. Wear a face mask You should wear a face mask when you are around other people (e.g., sharing a room or vehicle) or pets and before you enter a healthcare providers office. If you are not able to wear a face mask (for example, because it causes trouble breathing), then people who live with you should not stay in the same room with you, or they should wear a face mask if they enter your room. Cover your coughs and sneezes Cover your mouth and nose with a tissue when you cough or sneeze. Throw used tissues in a lined trash can. Immediately wash your hands with soap and water for at least 20 seconds or, if soap and water are not available, clean your hands with an alcohol-based hand rack room worker that contains at least 60% alcohol. Clean your hands often Wash your hands often with soap and water for at least 20 seconds, especially after blowing your nose, coughing, or sneezing; going to the bathroom; and before eating or preparing food. If soap and water are not readily available, use an alcohol-based hand rack room worker with at least 60% alcohol, covering all surfaces of your hands and rubbing them together until they feel dry. Soap and water are the best option if hands are visibly dirty. Avoid touching your eyes, nose, and mouth with unwashed hands. Avoid sharing personal household items You should not share dishes, drinking glasses, cups, eating utensils, towels, or bedding with other people or pets in your home. After using these items, they should be washed thoroughly with soap and water. Clean all high-touch surfaces everyday High touch surfaces include counters, tabletops, doorknobs, bathroom fixtures, toilets, phones, keyboards, tablets, and bedside tables. Also, clean any surfaces that may have blood, stool, or body fluids on them. Use a household cleaning spray or wipe, according to the label instructions. Labels contain instructions for safe and effective use of the cleaning product including p recautions you should take when applying the product, such as wearing gloves and making sure you have good ventilation during use of the product. Monitor your symptoms Seek prompt medical attention if your illness is worsening (e.g., difficulty breathing).Beforeseeking care, call your healthcare provider and tell them that you have, or are being evaluated for, COVID-19. Put on a face mask before you enter the facility. These steps will help the healthcare providers office to keep other people in the office or waiting room from getting infected or exposed. Ask your healthcare provider to call the local or state health department. Persons who are placed under active monitoring or facilitated self- monitoring should follow instructions provided by their local health department or occupational health professionals, as appropriate. When working with your local health department check their available hours. If you have a medical emergency and need to call 911, notify the dispatch personnel that you have, or are being evaluated for COVID-19. If possible, put on a face mask before emergency medical services arrive. Discontinuing home isolation Patients with confirmed COVID-19 should remain under home isolation precautions until the risk of secondary transmission to others is thought to be low. The decision to discontinue home isolation precautions should be made on a [id number] basis, in consultation with healthcare providers and [facility] and [facility] health departments. Pending Studies at Discharge: No Stand-Alone Forms: My [employer], Smoking Cessation Skilled Items Patient informed of condition?: Yes DNR: No Discharge Level of Care: Other Communicable Disease: No Discharge Prognosis: Stable Medications and DC Order Prescriptions: New doxycycline hyclate 100 mg Capsule 100 mg PO BID Qty: 8 0RF thiamine HCl (vitamin B1) 100 mg Tablet 100 mg PO QAM Qty: 30 0RF folic acid 1 mg Tablet 1 mg PO QAM Qty: 30 0RF multivitamin with folic acid [Daily-Logan (with folic acid)] 400 mcg Tablet 1 tab PO QAM Qty: 30 0RF amoxicillin-pot clavulanate 500-125 mg tablet 1 tab PO BID Qty: 8 0RF Continued fluticasone propion-salmeterol [Advair Diskus] 100-50 mcg/dose blister with device 1 inh inhalation DAILY Qty: 60 0RF Rx Instructions: takes as needed tiotropium bromide 18 mcg capsule, w/inhalation device 1 cap inhalation DAILY Qty: 2 0RF Rx Instructions: puncture 1 cap using device; one dose = 2 inhalations only takes as needed amlodipine 5 mg tablet 5 mg PO QAM Qty: 30 1RF albuterol sulfate 90 mcg/actuation Hfa Aerosol Inhaler 2 puff INHALATION Q6H PRN (Reason: Shortness Of Breath) Qty: 8.5 1RF Discharge Orders: Left Against Medical Advice (Routine); Ordered 10/17/22 Ordered By: Milton Gonsales Admission Data Admit Date/Time: 10/11/22 23:29 Attending Provider: Milton Gonsales Admit Provider: Mak Altman Primary Care Provider: Macario Rajput Other Providers: Mak Altman ; Fran Ramesh ; Ovidio Ochoa ; Alirio Jaramillo ; Marek Song ; Lillian Lozoya ; Martha Sales ; Darlin Washington ; Garrick Brown ; Mason Ribeiro ; Marielena Hartmann ; Rolando Steinberg ; Vickie Montero ; Raven Barboza ; Daniel Ortega ; Lizzie Vega ; Servando Toth ; [facility] ; Delmer-Meredith Pittman
== END 2022-10-17 11:00 | disposition left against medical advice (07) | DRG 871 ==
LOC: ED 18:34 → 2S 23:29 → SUATTDRO 23:29 → 2S 10-12 01:06 → 2E 10-12 10:04 → 2N 10-14 01:16

== ENCOUNTER 2022-12-18 11:44 | Inpatient (IN) ==
--- NOTE | 2022-12-18 12:08 | Emergency Department Note ---
Impression & Plan Postobstructive pneumonia, COPD (chronic obstructive pulmonary disease) ED Provider Note CHIEF COMPLAINT: Shortness of breath, tachycardia HISTORY OF PRESENT ILLNESS: This 62-year-old male patient with known mass in the left upper lobe, tobacco use disorder, hypertension, COPD, alcohol abuse presents to the emergency department from the pulmonary medicine office complaining of shortness of breath and tachycardia. The patient was recently admitted to the hospital and was noted to have a mass in the left upper lobe. REVIEW OF SYSTEMS: A review of systems was performed with positives and pertinent negatives listed in the history of present illness. 10 systems were reviewed and are otherwise negative. ALLERGIES: see below MEDICATIONS: see below PMH: see below SOCIAL HISTORY: see below DDx: Congestive heart failure, pulmonary lobe collapse, postobstructive pneumonia, PE, COPD exacerbation among others PHYSICAL EXAM: Vital signs reviewed. General: Cachectic and chronically ill-appearing 62-year-old male, in some respiratory discomfort HEENT: No scleral icterus, PERRLA, neck supple. Dry mucous membranes Cardiovascular: Tachycardic but regular, no extra sounds. Pulmonary: Distant breath sounds, coarse to auscultation bilaterally, increased work of breathing. On nasal cannula oxygen Abdomen: Soft, nontender, nondistended, positive bowel sounds. Musculoskeletal: Atraumatic, no peripheral edema. Thin, frail Neurologic: Patient awake alert and oriented x 3, speech is clear Skin: Warm, dry, no rash EXTERNAL medical records: Discharge summary dated 10/17/2022 and pulmonary visit note dated 12/18/2022 EMERGENCY DEPARTMENT COURSE/MDM: This patient was evaluated and appeared to be in no significant distress. IV access was obtained and laboratory work was drawn. The patient was placed on the monitoring engineer and noted to be in a sinus tachycardia. He was given a DuoNeb treatment, IV Solu-Medrol. Blood cultures were obtained and the patient was treated with IV Zosyn and IV doxycycline. Patient's case was discussed with the hospitalist service who has agreed to evaluate him for admission and further management. Respiratory BioFire is negative. Patient was informed of the findings and plan and will plan to be hospitalized for further management. He has expressed understanding and agrees. MONITORING: An order for cardiac monitoring was placed and the patient is noted to be in a normal sinus rhythm at 135 beats per minute. RADIOLOGY: Chest x-ray to my interpretation reveals evidence of a left upper lobe mass with postobstructive pneumonia. Please refer to radiology is over read. EKG: To my interpretation reveals a sinus tachycardia at 134 bpm. Possible left atrial enlargement, left axis deviation. QTc is 445. Previous septal infarct noted. DISPOSITION: Admission Past Med/Surg History Medical History COPD (chronic obstructive pulmonary disease) History of torsades de pointes Tobacco use disorder Atherosclerosis of lower extremity with intermittent claudication "right leg" Hypertension Surgical History S/P tonsillectomy and adenoidectomy History of dental surgery Family History Mother Diabetes Heart disease Social History Smoking Status: Current every day smoker Tobacco Type: Cigarettes Cigarettes Per Day: 10-15/DAY; Second Hand Exposure: No; Do You Dip or Chew Tobacco: No; Tobacco Cessation Education Requested by Patient: No Hx Alcohol Use: Yes Alcohol type: beer Hx Substance Use: Yes Last Used Substance Other:: 20-30 YEARS AGO Preferred Language: Mauritanian Communication Ability: Effective Hospice Director Required: No Beliefs That Will Affect Care: None Current Living Situation: Alone Other Information That Helps Us Care for You: No Feels Safe at Home: Yes Safety Concerns: Feels Safe At This Time Assistive Devices: Cane Assistive Devices Comment: ONLY USES A CANE OUTSIDE NOT INSIDE Allergies Allergies Allergy/AdvReac Type Severity Reaction Status Date / Time No Known Allergies Allergy Unverified 12/18/22 14:19 Home Meds Home Medications Medication Instructions Recorded Confirmed No Known Home Medications 12/18/22 12/18/22 Results & Data (ED) Vital Signs Vital Signs - 24 hr 12/18/22 11:47 Temperature 36.7 C Temperature Source Temporal Artery Scan Pulse Rate 135 H Respiratory Rate 26 H Respiratory Effort / Characteristics Non-Labored Respiratory Depth Normal Blood Pressure 129/73 Blood Pressure Mean 91 Pulse Oximetry 93 Oxygen Delivery Method Room Air Sepsis Recent Fever Within 48 Hours No Sepsis New/Unexplained Change in Mental Status No Sepsis Action Taken by Nursing No Action Required Home Medications Current Medication List: was personally reviewed by me Laboratory Data Attestation: I reviewed the patient's lab results. 12/21/22 06:44 12/21/22 06:44 Lab Results 12/18/22 Range/Units 11:58 WBC 19.15 H (4.8-10.8) K/ul RBC 3.87 L (4.70-6.10) M/uL Hgb 11.3 L (14.0-18.0) g/dl Hct 33.9 L (42.0-52.0) % MCV 87.6 (80.0-100.0) fL MCH 29.2 (25.0-34.0) pg MCHC 33.3 (32.0-36.0) g/dL RDW Std Deviation 53.9 H (36.4-46.3) fL RDW Coeff of Antony 16.8 H (11.5-14.5) % Plt Count 667 H (130-400) K/uL MPV 9.5 (9.4-12.4) fL Immature Gran % (Auto) 0.7 % Neut % (Auto) 88.1 % Lymph % (Auto) 3.7 % [place] % (Auto) 7.0 % Eos % (Auto) 0.1 % Baso % (Auto) 0.4 % Neut # (Auto) 16.90 H (1.40-6.50) K/uL Lymph # (Auto) 0.70 L (1.20-3.40) K/uL [place] # (Auto) 1.34 H (0.11-0.59) K/uL Eos # (Auto) 0.01 (0.00-0.50) K/uL Baso # (Auto) 0.07 (0.00-0.20) K/uL Immature Gran # (Auto) 0.13 (0.01-0.20) K/uL PT 11.2 (9.0-12.0) Seconds INR 1.0 (0.9-1.1) APTT 27.9 (21.0-31.0) Seconds PTT Ratio 1.0 Sodium 130 L (136-145) mmol/L Potassium 4.4 (3.5-5.1) mmol/L Chloride 92 L (98-107) mmol/L Carbon Dioxide 28 (21-32) mmol/L Anion Gap 10 (3-11) BUN 12 (6-23) mg/dl Creatinine 0.76 (0.6-1.4) mg/dl Est Cr Clr Drug Dosing Not Reportable Est GFR ( Amer) 112.5 ml/min Est GFR (Non-Af Amer) 97.1 ml/min BUN/Creatinine Ratio 15.8 (10-20) Glucose 94 (70-99(Fasting)) mg/dl Calcium 9.5 (8.6-10.3) mg/dl Magnesium 1.8 (1.7-2.4) mg/dl Total Bilirubin 0.5 (0.2-1.0) mg/dl AST 25 (13-39) U/L ALT 10 (7-52) U/L Alkaline Phosphatase 202 H (34-104) U/L Troponin I High Sens 6.8 (0-20) pg/ml Total Protein 7.6 (6.0-8.3) gm/dl Albumin 3.1 L (3.4-5.0) gm/dl Globulin 4.5 H (2.5-4.0) gm/dl Albumin/Globulin Ratio 0.7 L (0.9-2) Administered Medications Acetaminophen (Acetaminophen 325 Mg Tab) 650 mg PO Q4H PRN PRN Reason: Pain or Fever Stop: 01/17/23 16:06 Last Admin: 12/20/22 05:18 Dose: 650 mg Documented By: Admin: 12/19/22 21:00 Dose: 650 mg Documented By: GUSTAVO Diphenhydramine HCl (Diphenhydramine Capsule 25 Mg Cap) 25 mg PO Q6H PRN PRN Reason: Itching Stop: 01/17/23 16:59 Last Admin: 12/20/22 01:45 EST Dose: 25 mg Documented By: GUSTAVO Docusate Sodium (Docusate Sodium 100 Mg Cap) 100 mg PO BID EMMA Stop: 01/17/23 20:59 Last Admin: 12/21/22 20:11 Dose: 100 mg Documented By: Admin: 12/21/22 11:58 Dose: 100 mg Documented By: Admin: 12/20/22 19:33 Dose: 100 mg Documented By: Admin: 12/20/22 07:59 Dose: 100 mg Documented By: Admin: 12/19/22 20:57 Dose: 100 mg Documented By: Admin: 12/19/22 08:32 Dose: Not Given Documented By: Admin: 12/18/22 19:56 Dose: 100 mg Documented By: GUSTAVO Guaifenesin/Codeine Phosphate (Guaifenesin/Codeine 200mg/20mg 10ml Udc) 10 ml PO Q6H PRN PRN Reason: Cough Stop: 01/19/23 17:14 Last Admin: 12/22/22 01:55 Dose: 10 ml Documented By: Admin: 12/21/22 19:28 Dose: 10 ml Documented By: Admin: 12/21/22 13:25 Dose: 10 ml Documented By: Admin: 12/20/22 23:44 Dose: 10 ml Documented By: MARCEL Heparin Sodium (Porcine) (Heparin Sod 5,000 Unit/0.5 Ml Vial) 5,000 units SQ Q12 EMMA Stop: 01/17/23 20:59 Last Admin: 12/21/22 20:12 Dose: 5,000 units Documented By: Admin: 12/20/22 07:59 Dose: 5,000 units Documented By: Admin: 12/19/22 20:57 Dose: 5,000 units Documented By: Admin: 12/19/22 08:31 Dose: 5,000 units Documented By: Admin: 12/18/22 19:55 Dose: 5,000 units Documented By: GUSTAVO Doxycycline Hyclate 100 mg/ (Dextrose) 100 mls @ 50 mls/hr IV Q12H EMMA Stop: 12/25/22 15:44 Last Infusion: 12/21/22 16:25 Dose: Infused Documented By: Admin: 12/21/22 15:24 Dose: 100 mls/hr Documented By: Infusion: 12/21/22 05:00 Dose: Infused Documented By: Admin: 12/21/22 02:39 Dose: 50 mls/hr Documented By: Infusion: 12/20/22 19:39 Dose: Infused Documented By: Admin: 12/20/22 17:40 Dose: 50 mls/hr Documented By: Infusion: 12/20/22 05:24 Dose: Infused Documented By: Admin: 12/20/22 03:14 Dose: 50 mls/hr Documented By: Infusion: 12/19/22 18:11 Dose: Infused Documented By: Admin: 12/19/22 15:59 Dose: 50 mls/hr Documented By: Infusion: 12/19/22 05:40 Dose: Infused Documented By: Admin: 12/19/22 03:23 Dose: 50 mls/hr Documented By: Infusion: 12/18/22 20:15 Dose: Infused Documented By: Admin: 12/18/22 18:06 Dose: 50 mls/hr Documented By: Piperacillin Sod/Tazobactam (Sod 4.5 gm/ Dextrose) 100 mls @ 25 mls/hr IV Q8H [facility]; Protocol Stop: 12/25/22 19:59 Last Infusion: 12/22/22 00:12 Dose: Infused Documented By: Admin: 12/21/22 20:12 Dose: 25 mls/hr Documented By: Infusion: 12/21/22 16:22 Dose: Infused Documented By: Admin: 12/21/22 11:58 Dose: 25 mls/hr Documented By: Infusion: 12/21/22 09:05 Dose: Infused Documented By: Admin: 12/21/22 05:00 Dose: 25 mls/hr Documented By: Infusion: 12/20/22 23:50 Dose: Infused Documented By: Admin: 12/20/22 19:36 Dose: 25 mls/hr Documented By: Infusion: 12/20/22 16:58 Dose: Infused Documented By: Admin: 12/20/22 12:58 Dose: 25 mls/hr Documented By: Infusion: 12/20/22 07:59 Dose: Infused Documented By: Admin: 12/20/22 03:15 Dose: 25 mls/hr Documented By: Infusion: 12/20/22 00:27 Dose: Infused Documented By: Admin: 12/19/22 19:27 Dose: 25 mls/hr Documented By: Infusion: 12/19/22 15:21 Dose: Infused Documented By: Admin: 12/19/22 11:19 Dose: 25 mls/hr Documented By: Infusion: 12/19/22 07:38 Dose: Infused Documented By: Admin: 12/19/22 03:28 Dose: 25 mls/hr Documented By: Infusion: 12/18/22 23:56 Dose: Infused Documented By: Admin: 12/18/22 19:56 Dose: 25 mls/hr Documented By: GUSTAVO Discontinued Medications Albuterol (Albut/Ipratrop 3mg/0.5mg Neb 3 Ml Vial) 3 ml NEB NOW STA; Protocol Stop: 12/18/22 12:13 Last Admin: 12/18/22 12:26 Dose: 3 ml Documented By: TUNDE Albuterol (Albut/Ipratrop 3mg/0.5mg Neb 3 Ml Vial) 3 ml NEB QIDR EMMA; Protocol Stop: 01/17/23 14:59 Last Admin: 12/19/22 11: Dose: 3 ml Documented By: Admin: 12/19/22 07:36 Dose: 3 ml Documented By: Admin: 12/18/22 19:46 Dose: 3 ml Documented By: Admin: 12/18/22 15:11 Dose: 3 ml Documented By: TUNDE Albuterol (Albut/Ipratrop 3mg/0.5mg Neb 3 Ml Vial) Confirm Administered Dose 3 ml .ROUTE .STK-MED ONE Stop: 12/18/22 15:05 Last Admin: 12/18/22 15:12 Dose: Not Given Documented By: TUNDE Diphenhydramine HCl (Diphenhydramine Capsule 25 Mg Cap) 25 mg PO NOW ONE Stop: 12/18/22 15:33 Last Admin: 12/18/22 15:47 Dose: 25 mg Documented By: TUNDE Diphenhydramine HCl (Diphenhydramine 50 Mg/Ml Vial) 12.5 mg IV ONE ONE Stop: 12/18/22 16:49 Last Admin: 12/18/22 16:59 Dose: 12.5 mg Documented By: Guaifenesin/Codeine Phosphate (Guaifenesin/Codeine 100mg/10mg 5ml Udc) 10 ml PO NOW STA Stop: 12/20/22 17:16 Last Admin: 12/20/22 17:39 Dose: 10 ml Documented By: EDITH Sodium Chloride (Nss) 500 mls @ 999 mls/hr IV .Q31M ONE Stop: 12/18/22 12:40 Last Infusion: 12/18/22 12:46 Dose: Infused Documented By: Admin: 12/18/22 12:27 Dose: 999 mls/hr Documented By: TUNDE Sodium Chloride (Nss) 1,000 mls @ 100 mls/hr IV .Q10H STA Stop: 12/18/22 22:09 Last Infusion: 12/19/22 07:25 Dose: Infused Documented By: Infusion: 12/18/22 14:34 Dose: 0 mls/hr Documented By: Admin: 12/18/22 12:28 Dose: 150 mls/hr Documented By: MMSaúl Sodium Chloride (Nss) 500 mls @ 999 mls/hr IV .Q31M ONE Stop: 12/18/22 14:03 Last Infusion: 12/18/22 15:02 Dose: Infused Documented By: Admin: 12/18/22 14:28 Dose: 999 mls/hr Documented By: TUNDE Piperacillin Sod/Tazobactam (Sod 4.5 gm/ Dextrose) 100 mls @ 200 mls/hr IV NOW ONE; Protocol Stop: 12/18/22 14:02 Last Infusion: 12/18/22 15:03 Dose: Infused Documented By: Admin: 12/18/22 14:27 Dose: 200 mls/hr Documented By: TUNDE Famotidine 20 mg/ Syringe 5 mls @ 2.5 mls/min IV ONE ONE Stop: 12/18/22 17:01 Last Admin: 12/18/22 18:03 Dose: 2.5 mls/min Documented By: ENS Hydrocortisone Sodium (Succinate 100 mg/ Syringe) 2 mls @ 4 mls/min IV ONE ONE Stop: 12/18/22 17:01 Last Admin: 12/18/22 18:03 Dose: 4 mls/min Documented By: ENS Magnesium Sulfate 4 gm/ Sodium (Chloride) 1,008 mls @ 125 mls/hr IV .Q8H4M EMMA Stop: 12/20/22 18:03 Last Infusion: 12/20/22 20:12 Dose: Infused Documented By: Admin: 12/20/22 11:09 Dose: 125 mls/hr Documented By: EDITH Ioversol (Optiray 320 100ml) 90 ml IV ONCE ONE Stop: 12/18/22 17:40 Last Admin: 12/18/22 17:40 Dose: 90 ml Documented By: HCAVEZ Morphine Sulfate (Morphine Sulfate 4 Mg/Ml 1 Ml Carp\\Vial) 4 mg IV NOW STA Stop: 12/18/22 12:13 Last Admin: 12/18/22 12:26 Dose: 4 mg Documented By: MMG Ondansetron HCl (Ondansetron Inj 2 Mg/Ml 2 Ml Vial) 4 mg IV NOW STA Stop: 12/18/22 12:13 Last Admin: 12/18/22 12:26 Dose: 4 mg Documented By: MMG Discharge Plan Visit Data Chief Complaint: Chest Pain Stated Complaint: CHEST PAIN, SOB, WEAKNESS IN LEGS/ARMS ED Provider: Lois Asif Discharge Problem: Postobstructive pneumonia, COPD (chronic obstructive pulmonary disease) Patient Disposition: Admitted As Inpatient Discharge Instructions Interventions: ED Discharge Assessment Last Done: 12/18/22 15:24 Discharge Problem: COPD (chronic obstructive pulmonary disease) Qualifiers: COPD type: COPD with acute exacerbation Qualified Code(s): J44.1 - Chronic obstructive pulmonary disease with (acute) exacerbation
[2022-12-18] MEDS ORDERED: SODIUM CHLORIDE 0.9% 1,000 ML IV STA (12:10)
[2022-12-18] MEDS ORDERED: SODIUM CHLORIDE 0.9% 500 ML IV ONE ×2 (12:10→13:33)
[2022-12-18] MEDS ORDERED: MoRPHine SULFATE 4 MG/ML 1 ML CARP\\VIAL IV STA (12:12)
[2022-12-18] MEDS ORDERED: ONDANSETRON INJ 2 MG/ML 2 ML VIAL IV STA (12:12)
[2022-12-18] MEDS ORDERED: ALBUT/IPRATROP 3MG/0.5MG NEB 3 ML VIAL NEB STA (12:12)
[2022-12-18 12:16] LABS: Basophils # (auto) 0.07 K/uL (0.00-0.20); Basophils % (auto) 0.4 %; Eosinophils # (auto) 0.01 K/uL (0.00-0.50); Eosinophils % (auto) 0.1 %; Hematocrit (blood only) 33.9 % (42.0-52.0); Hemoglobin 11.3 g/dl (14.0-18.0); Immature Granulocytes # (auto) 0.13 K/uL (0.01-0.20); Immature Granulocytes % (auto) 0.7 %; Lymphocytes % (auto) 3.7 %; Mean Corpuscular Hemoglobin 29.2 pg (25.0-34.0); Mean Corpuscular Hgb Conc 33.3 g/dL (32.0-36.0); Mean Corpuscular Volume 87.6 fL (80.0-100.0); Mean Platelet Volume 9.5 fL (9.4-12.4); Monocytes # (auto) 1.34 K/uL (0.11-0.59); Neutrophils % (auto) 88.1 %; Platelet Count 667 K/uL (130-400); RDW Coefficient of Variation 16.8 % (11.5-14.5); RDW Standard Deviation 53.9 fL (36.4-46.3); Red Blood Count 3.87 M/uL (4.70-6.10); White Blood Count 19.15 K/ul (4.8-10.8)
[2022-12-18 12:32] LABS: Alanine Aminotransferase 10 U/L (7-52); Albumin Globulin Ratio 0.7 (0.9-2); Albumin Level 3.1 gm/dl (3.4-5.0); Alkaline Phosphatase 202 U/L (34-104); Anion Gap 10 (3-11); Aspartate Aminotransferase 25 U/L (13-39); BUN Creatinine Ratio 15.8 (10-20); Bilirubin,Total 0.5 mg/dl (0.2-1.0); Blood Urea Nitrogen 12 mg/dl (6-23); Calcium 9.5 mg/dl (8.6-10.3); Carbon Dioxide 28 mmol/L (21-32); Chloride 92 mmol/L (98-107); Est GFR (African American) 112.5 ml/min; Est GFR (Non-African American) 97.1 ml/min; Globulin 4.5 gm/dl (2.5-4.0); Glucose 94 mg/dl (70-99(Fasting)); Magnesium 1.8 mg/dl (1.7-2.4); Potassium 4.4 mmol/L (3.5-5.1); Sodium 130 mmol/L (136-145); Total Protein 7.6 gm/dl (6.0-8.3)
[2022-12-18 12:38] LABS: Troponin I High Sensitivity 6.8 pg/ml (0-20)
[2022-12-18 12:44] LABS: Partial Thromboplastin Time 27.9 Seconds (21.0-31.0); Prothrombin Time 11.2 Seconds (9.0-12.0)
--- NOTE | 2022-12-18 13:25 | XRay Report ---
XR chest 1V portable CLINICAL HISTORY: Chest pain, nonspecific. COMPARISON STUDY: Chest CTs October 11, 2022 and November 19, 2022. Chest radiograph October 13, 2022. FINDINGS: There is no pneumothorax. A trace left pleural effusion is noted. Left lung volume loss is again noted with left perihilar hazy opacity and lucency adjacent to the aortic arch. Reticulonodular interstitial thickening within the left lower lung has progressed since chest CT of November 19, 2022. IMPRESSION: 1. Findings again suggestive of left upper lobe collapse, as described above. Left lung volume loss w ith hazy left perihilar opacity. The left hilar mass and mediastinal lymphadenopathy are better depic kimo on recent chest CT. 2. Reticulonodular interstitial thickening within the left lower lung which favors an infectious proc ess. 3. Trace left pleural effusion. ACT 112: Negative or not required by law. Electronically signed by: Hung Bautista M.D. 12/18/2022 1:24 PM
[2022-12-18] MEDS ORDERED: PIPERACILLIN/TAZOBACTAM 4.5 GM in DEXTROSE 5% MINI-B 100 ML IV ONE (13:33)
--- NOTE | 2022-12-18 14:26 | History & Physical Report ---
Date of Service December 18, 2022 Assessment & Plan (1) Lung mass: Plan: This is a 62 y/o male with moderate COPD, history tobacco abuse, HTN, hx torsades de pointes due to electrolyte imbalance, and RLE atherosclerosis and claudication who presents to the ED from outpatient pulmonology with tachycardia and borderline hypoxia. He has a known left hilar mass, which was enlarging on most recent outpatient CT. He followed up with pulmonology today who noted he has been progressively worsening overall and referred him to the ED for evaluation and possible admission. In the ED, he was placed on 2L of O2 and given IVF as well as empiric Zosyn. Biopsy of lung mass is anticipated for next week. Due to worsening condition overall, hypoxia, and likely post-obstructive pneumonia, pt was referred for admission. - Admit to PCU - Continue broad-spectrum antibiotics with Zosyn but will add doxycycline - Duonebs QID and prn - Incentive spirometry, flutter valve - Consult pulmonology - spoke with outpatient pulm SALLY Ochoa who stated biopsy would likely not be until next week at the earliest so pt given a diet for now - Fall precautions, aspiration precautions - Continue O2 titrated as needed to maintain sats - Pt meets sepsis criteria with initial tachycardia, tachypnea, leukocytosis and pulmonary source of infection so will check lactate and procalcitonin. Blood cultures already drawn and pending. - Continue IVF for additional liter then reassess fluid status. Repeat BMP in the AM due to hyponatremia, which was worked up during last admission. - CT L-spine due to increasing back pain - rule out mets (2) Adult failure to thrive: (3) COPD (chronic obstructive pulmonary disease): (4) Hypoxia: (5) Hypertension: (6) Mass of right inguinal region: Plan: May be metastatic disease to LN vs. abscess - pt reports increasing size and discomfort - CT abd/pel for further evaluation - Pt already on broad-spectrum antibiotics to cover for infection - General surgery evaluation Plan Pt seen and evaluated with collaborating physician, Dr. Magana. Plan of care discussed and as outlined above. Code status: Full code DVT Prophylaxis: SubQ heparin Inés Zapata PA-C History of Present Illness Chief Complaint: elevated heart rate, hypoxia, weakness Primary Care Provider: Macario Rajput MD This is a 62 y/o male with moderate COPD, history tobaccoa abuse, HTN, hx nedra venita de pointes due to electrolyte imbalance, and RLE atherosclerosis and claudication who presents to the ED from outpatient pulmonology with tachycardia and borderline hypoxia. Pt was admitted to [facility] 10/11-10/17/22 with sepsis, severe COVID-pneumonia with hypoxia, and possible post-obstructive MARTHA pneumonia. Pt signed out AMA on 10/17/22 before possible rehab placement could be completed. He followed up with PCP on 11/12 but didn't follow up with pulmonology until today. Outpatient CT on 11/19 showed increasing size of left hilar mass with persistent mass effect and persistent collapse of the MARTHA, as well as diffusely increased metastatic disease to the liver. Sent over from pulmonology today due to tachycardia, borderline hypoxia and generalized weakness. Pt reports worsening issues with JORGENSEN - walking more than short distances or lifting anything causes significant dyspnea that can take up to 30 minutes of rest to resolve. +wheezing, +productive cough (clear to white sputum) but no hemoptysis. Denies fevers, chills, sweats. +fatigue and weakness. Appetite has improved since last admission - eating soft foods. Denies N/V/D. Notes an enlarging tender area in his right groin but no drainage from it. He had an old albuterol inhaler at home, which he has been using when symptoms are especially severe and this does help transiently with symptoms. Allergies Allergy/AdvReac Type Severity Reaction Status Date / Time No Known Allergies Allergy Unverified 12/18/22 14:19 Home Medications Medication Instructions Recorded Confirmed Type No Known Home Medications 12/18/22 12/18/22 History Past Med/Surg History Medical History (Updated 12/18/22 @ 17:57 by Swati Zapata PA-C) COPD (chronic obstructive pulmonary disease) History of torsades de pointes Tobacco use disorder Atherosclerosis of lower extremity with intermittent claudication "right leg" Hypertension Surgical History S/P tonsillectomy and adenoidectomy History of dental surgery Family History Mother Diabetes Heart disease Social History Smoking Status: Current every day smoker Tobacco Type: Cigarettes Cigarettes Per Day: 10-15/DAY; Second Hand Exposure: No; Do You Dip or Chew Tobacco: No; Tobacco Cessation Education Requested by Patient: No Hx Alcohol Use: Yes Alcohol type: beer Hx Substance Use: Yes Last Used Substance Other:: 20-30 YEARS AGO Preferred Language: South Korean Communication Ability: Effective Sewer Hand Required: No Beliefs That Will Affect Care: None Current Living Situation: Alone Other Information That Helps Us Care for You: No Feels Safe at Home: Yes Safety Concerns: Feels Safe At This Time Assistive Devices: Cane Assistive Devices Comment: ONLY USES A CANE OUTSIDE NOT INSIDE Review of Systems Review of Systems: All systems reviewed & are unremarkable except as noted in HPI & below Constitutional: + fatigue and + weakness; no fever, no c hills and no sweats Eyes: no diplopia and no worsening vision Respiratory: + cough, + dyspnea on exertion and + whe ezing; no hemoptysis Cardiovascular: + chest pain (on left, worse with coughi ng); no palpitations, no lightheadedness and no syncope Gastrointestinal: no nausea, no vomiting and no diarrhea/loose stools Genitourinary: no dysuria or no hematuria Musculoskeletal: + back pain Integumentary: no yellowing of the skin Neurologic: + generalized weakness; no dizziness and no headache(s) Physical Exam Physical Exam: General: cachectic, NAD, oriented x 3 Eyes: no scleral icterus Mouth: slightly dry oral mucosa Heart: regular rhythm but tachycardiac Lungs: diminished BS on left, faint expiratory wheezes throughout Abdomen: soft, +BS, tender right inguinal mass with overlying erythema but no drainage Skin: no jaundice Neuro: moves all extremities, no confusion Pulses: radial pulses 2+ and equal Extremities: no pedal edema Results & Data Results & Data Vital Signs (Past 12 Hours) Vital Signs Temp Pulse Pulse Resp BP BP Pulse Ox 12/18/22 12:47 109 H 12/18/22 12:39 105 H 24 99 12/18/22 12:39 105 H 24 131/84 99 12/18/22 12:39 93 12/18/22 12:39 12/18/22 11:47 36.7 C 135 H 26 H 129/73 93 O2 Del Method O2 Flow Rate 12/18/22 12:47 12/18/22 12:39 Nasal Cannula 2 12/18/22 12:39 Nasal Cannula 2 12/18/22 12:39 Nasal Cannula 0 12/18/22 12:39 Nasal Cannula 2 12/18/22 11:47 Room Air Laboratory Results Laboratory Results - last 24 hr 12/18/22 12/18/22 11:58 Unknown WBC 19.15 H RBC 3.87 L Hgb 11.3 L Hct 33.9 L MCV 87.6 MCH 29.2 MCHC 33.3 RDW Std Deviation 53.9 H RDW Coeff of Antony 16.8 H Plt Count 667 H MPV 9.5 Immature Gran % (Auto) 0.7 Neut % (Auto) 88.1 Lymph % (Auto) 3.7 [place]acier % (Auto) 7.0 Eos % (Auto) 0.1 Baso % (Auto) 0.4 Neut # (Auto) 16.90 H Lymph # (Auto) 0.70 L [place] # (Auto) 1.34 H Eos # (Auto) 0.01 Baso # (Auto) 0.07 Immature Gran # (Auto) 0.13 PT 11.2 INR 1.0 APTT 27.9 PTT Ratio 1.0 Sodium 130 L Potassium 4.4 Chloride 92 L Carbon Dioxide 28 Anion Gap 10 BUN 12 Creatinine 0.76 Est Cr Clr Drug Dosing Not Reportable Est GFR ( Amer) 112.5 Est GFR (Non-Af Amer) 97.1 BUN/Creatinine Ratio 15.8 Glucose 94 Calcium 9.5 Magnesium 1.8 Total Bilirubin 0.5 AST 25 ALT 10 Alkaline Phosphatase 202 H Troponin I High Sens 6.8 Total Protein 7.6 Albumin 3.1 L Globulin 4.5 H Albumin/Globulin Ratio 0.7 L SARS-CoV-2, RNA, NAAT NEGATIVE Diagnostic Findings Chest X-Ray 12/18/22 11:52 XR chest 1V portable CLINICAL HISTORY: Chest pain, nonspecific. COMPARISON STUDY: Chest CTs October 11, 2022 and November 19, 2022. Chest radiograph October 13, 2022. FINDINGS: There is no pneumothorax. A trace left pleural effusion is noted. Left lung volume loss is again noted with left perihilar hazy opacity and lucency adjacent to the aortic arch. Reticulonodular interstitial thickening within the left lower lung has progressed since chest CT of November 19, 2022. IMPRESSION: 1. Findings again suggestive of left upper lobe collapse, as described above. Left lung volume loss with hazy left perihilar opacity. The left hilar mass and mediastinal lymphadenopathy are better depicted on recent chest CT. 2. Reticulonodular interstitial thickening within the left lower lung which favors an infectious process. 3. Trace left pleural effusion. ACT 112: Negative or not required by law. Electronically signed by: Hung Bautista M.D. 12/18/2022 1:[address] CHEST 11/19/22 IMPRESSION: 1. Increasing size of dominant mass lesion in the left hilum with developing necrosis and gas within the lesion and adjacent lung. 2. Persisting mass effect on left hilar structures including pulmonary artery and bronchial tree. 3. Persistent collapse of left upper lobe 4. Increased size of necrotic mass or lymph node in the superior mediastinum abutting the aorta. 5. Diffusely increased metastatic disease the liver 6. Aeration of the lungs similar to previous. Mild increased reticulonodular markings left lung base similar to previous. These may represent a superimposed atypical or viral infection. Supervising Physician Co-Signing Physician Notes 62-year-old male with COPD/smoking tobacco until recently [could not smoke because of the current presenting symptom per pt], HTN, Torsades de pointes d/t electrolyte imbalance, RLE atherosclerosis and claudication presented to the ED after referral from pulmonology office due to shortness of breath, tachycardia, hypoxia. Of note, he has known left hilar mass which is yet to be worked up. No formal diagnosis/biopsy has been done. Patient presents with shortness of breath/fatigability which has been ongoing but worsening lately. He also complains of productive cough and left-sided chest pain. He does not use oxygen at home, currently needing 7 L oxygen at bedside exam. He states his appetite has been good but he has not been gaining weight. On labs evaluation, WBC elevated, sodium mild hyponatremia. Chest x-ray with MARTHA collapse and LLL pneumonia. Patient being managed for LLL pneumonia, likely postobstructive secondary to lung mass. Follow Bl Cx. Pulm consult. Patient also has right inguinal mass, will send CT abdomen pelvis with IV contrast. Gentle IV hydration to prevent contrast nephropathy. Hyponatremia likely secondary to metastatic disease/likely SIADH. Labs in a.m. Increase protein content in diet, will not restrict fluid for now, might ultimately need fluid restriction. Monitor BMP in a.m. General surgery consult for right inguinal mass. Of note, patient had itching reaction later in the ER stay. Assuming it is likely due to morphine. Continue to monitor closely, avoid morphine. Monitor reactions to other meds as they are administered. Patient was given hydrocortisone, Benadryl, famotidine. On exam: GENERAL: Alert and oriented x3. NAD, on 7L NC O2, frail/thin/cachectic appearing HEENT: No pallor, no icterus. Pupils equal, round and reactive to light. Oral mucosa moist. NECK: No JVD, no neck masses. HEART: S1 and S2 heard. Regular rate and rhythm. Tachycardia no murmur, no gallop. RESPIRATORY SYSTEM: Normal AP diameter. No accessory muscle use. No wheezing, bilateral crackles. ABDOMEN: Soft, bowel sounds present, nontender, no distention. Right inguinal mass noted, no fluctuation noted, likely lymphadenopathy. CENTRAL NERVOUS SYSTEM: No facial droop. Speech is clear. Obeys simple commands. Moves extremities. EXTREMITIES: No edema, no erythema seen. I have seen and examined the patient and have discussed the case with the provider above. I agree with the assessment and plan as stated. (3) COPD (chronic obstructive pulmonary disease) COPD type: emphysema Emphysema type: unspecified Qualified Code(s): J43.9 - Emphysema, unspecified (5) Hypertension Hypertension type: unspecified Qualified Code(s): I10 - Essential (primary) hypertension
[2022-12-18] MEDS: ALBUT/IPRATROP 3MG/0.5MG NEB 3 ML VIAL ONE ×2 (15:06→15:12)
[2022-12-18] MEDS: ALBUT/IPRATROP 3MG/0.5MG NEB 3 ML VIAL NEB SCH ×3 (15:10→19:46)
[2022-12-18] MEDS ORDERED: diphenhydrAMINE Capsule 25 MG CAP PO ONE (15:32)
[2022-12-18] MEDS ORDERED: diphenhydrAMINE 50 MG/ML VIAL IV ONE (16:48)
[2022-12-18] MEDS ORDERED: oxyCODONE/ACETAMINOPHEN 5mg/325mg TAB PO PRN (16:49)
[2022-12-18] MEDS ORDERED: diphenhydrAMINE Capsule 25 MG CAP PO PRN (16:52)
[2022-12-18] MEDS ORDERED: FAMOTIDINE 20 MG in SYRINGE 3 ML IV ONE (17:00)
[2022-12-18] MEDS ORDERED: HYDROCORTISONE SOD 100 MG in SYRINGE 0 ML IV ONE (17:00)
[2022-12-18] MEDS ORDERED: OPTIRAY 320 100ml IV ONE (17:39)
[2022-12-18] MEDS: DOXYCYCLINE HYCLATE 100 MG in DEXTROSE 5% MINI-B 100 ML IV SCH (18:06)
--- NOTE | 2022-12-18 19:31 | CT Scan Report ---
ABDOMEN AND PELVIS CT WITH IV CONTRAST; CT LUMBAR SPINE WITH IV CONTRAST CT DOSE: 372.57 mGy.cm HISTORY: Follow-up study Patient with pathologic right lymphadenopathy. History of hepatic metastatic disease. Left hilar/medi astinal mass. right inguinal abscess vs LN (met) TECHNIQUE: Multiaxial CT images of the abdomen and pelvis were performed following the IV administrat ion of 90 cc of Optiray, A dose lowering technique was utilized adhering to the principles of ALARA. COMPARISON STUDY: CT abdomen and pelvis 10/16/2022, chest CT 11/19/2022 FINDINGS: CT ABDOMEN/PELVIS: Small left pleural effusion with left basilar consolidation. Collapse of the lingula with nodular bas ilar pleural thickening again noted. Progressive tree-in-bud nodules of the left lower lobe with mild dependent left lower lobe atelectasis. No free air. Unremarkable adrenal glands. There is a 6 cm hypodense focus of the pancreatic tail on image 84 which is too small to characterize. Increased size of a metastatic lesion along the anterior medial margin of the left kidney on image 95 measuring 2.9 x 2.4 cm, previously subcentimeter in size. Progressive ly worsened multifocal hepatic metastatic disease. Index 3.3 cm lesion within the left hepatic lobe o n image 74 previously measured 1.6 cm. There is also increased number of the hepatic metastatic lesio ns. Patent portal vein. Contracted gallbladder. No hydronephrosis. Mildly distended urinary bladder. Prostatomegaly. Atherosclerosis of the aorta. Pr ogressively worsening metastatic lymph nodes within the abdomen and pelvis. This includes prominent r ight inguinal lymphadenopathy measuring up to 5.0 x 3.2 cm on image 266, previously 3.8 x 2.1 cm. Add itional pathologic perirectal lymph nodes are new/progressed from prior. Right inguinal and retroperi toneal lymph nodes have progressed. 1.8 x 1.1 cm precaval lymph node on image 161 was previously subc entimeter in size. Duodenal diverticula. There is no bowel obstruction. Irregular thickening and enhancement within the anus. Healing subacute right-sided rib fractures. No acute fracture identified. Mild to moderate colo nat[place] fecal retention. Noninflamed appendix. 9 mm mesenteric nodule within the pelvis on image 216. Mul tifocal high-grade stenoses of the femoral arteries secondary to prominent atherosclerotic plaque. CT LUMBAR SPINE: 10 mm anterolisthesis L5 on S1 with chronic L5 pars defects. Severe disc space narrowing at L1-L2. No acute fracture, subluxation or destructive bone lesion identified. Limited evaluation of the central canal and neural foramina by CT technique. No high-grade central canal stenosis. Moderate to severe left with severe right neural foraminal narrowing at L5-S1. IMPRESSION: 1. Significantly progressed metastatic disease compared to the study from 10/16/2022. This includes pro gressive hepatic and loc disease with a metastatic left retroperitoneal mass abutting the kidney. 2. Irregular thickening and enhancement of the anus suspicious for malignancy. 3. Partially imaged lingular consolidation with small left pleural effusion. Please refer to the [facility] t CT from 11/19/2022 describing the malignant disease within the thorax. 4. Progressive tree-in-bud nodules with mucous plugging within the left lower lobe, likely related to postobstructive pneumonitis. 5. No acute fracture or destructive bone lesions identified. ACT 112: Negative or not required by law. The above report was generated using voice recognition software. It may contain grammatical, syntax o r spelling errors. Electronically signed by: Trever Ellis M.D. 12/18/2022 7:28 PM
[2022-12-18 19:51] LABS: Appearance Urine Clear (Clear); Bacteria Urine Automated Negative (Negative); Bilirubin Urine Negative (Negative); Blood Urine Negative (Negative); Color Urine Yellow; Glucose Urine UA Negative (Negative); Ketones Urine Negative (Negative); Leukocyte Esterase Urine Negative (Negative); Nitrite Urine Negative (Negative); Protein Urine Trace (Negative); RBC Urine Automated 0-4 /hpf (0-4); Specific Gravity Urine > 1.045 (1.000-1.030); Urobilinogen Urine Negative (Negative)
[2022-12-18] MEDS: HEPARIN SOD 5,000 UNIT/0.5 ML VIAL SQ SCH (19:55)
[2022-12-18] MEDS: DOCUSATE SODIUM 100 MG CAP PO SCH (19:56)
[2022-12-18] MEDS: PIPERACILLIN/TAZOBACTAM 4.5 GM in DEXTROSE 5% MINI-B 100 ML IV SCH (19:56)
--- NOTE | 2022-12-18 20:36 | Electrocardiogram Report ---
Test Reason : Blood Pressure : / mmHG Vent. Rate : 134 BPM Atrial Rate : 134 BPM P-R Int : 126 ms QRS Dur : 068 ms QT Int : 298 ms P-R-T Axes : 079 -63 091 degrees QTc Int : 445 ms Sinus tachycardia Possible Left atrial enlargement Left axis deviation Poor R wave progression, consider anterior VA vs. lead placement vs. LVH Abnormal ECG Confirmed by Gage Martinez ([id number]) on 12/18/2022 8:35:57 PM Referred By: REFERRED SELF Confirmed By:Kan Martinez
--- NOTE | 2022-12-18 20:43 | Surgery Consultation ---
Date of Consultation December 18, 2022 Assessment & Plan (1) Mass of right inguinal region: As previous (in last surgery consult), this is consistent with metastatic disease on imaging and clinical exam. This disease appears to be worsening. Biopsy of the lung lesion is scheduled. If this is nondiagnostic, core biopsy of the groin lesion is an option. No sign of abscess or infection. No further surgical therapy needed. Will sign off . Please call with questions. History of Present Illness Reason for Consultation: right groin mass Requesting Physician: SALLY Coates Attending Physician: Felicitas Magana MD History of Present Illness 62 yr old man with metastatic cancer, presumably lung primary but biopsy scheduled for next week, admitted with hypoxia, sepsis signs. Has had a right groin mass which CT has shown to be consistent with metastatic lymphadenopathy. Has noticed this area is increasing in size, more pain at the site. CT repeat shows worsening metastatic disease with right groin node growing from over 3 cm to 5 cm. No abscess. Allergies Allergy/AdvReac Type Severity Reaction Status Date / Time No Known Allergies Allergy Unverified 12/18/22 14:19 Home Medications Medication Instructions Recorded Confirmed Type No Known Home Medications 12/18/22 12/18/22 History Patient History Medical History COPD (chronic obstructive pulmonary disease) History of torsades de pointes Tobacco use disorder Atherosclerosis of lower extremity with intermittent claudication "right leg" Hypertension Surgical History S/P tonsillectomy and adenoidectomy History of dental surgery Family History Mother Diabetes Heart disease Social History Smoking Status: Current every day smoker Tobacco Type: Cigarettes Cigarettes Per Day: 10-15/DAY; Second Hand Exposure: No; Do You Dip or Chew Tobacco: No; Tobacco Cessation Education Requested by Patient: No Hx Alcohol Use: Yes Alcohol type: beer Hx Substance Use: Yes Last Used Substance Other:: 20-30 YEARS AGO Preferred Language: Bengali Communication Ability: Effective Flame Cutting Supervisor Required: No Beliefs That Will Affect Care: None Current Living Situation: Alone Other Information That Helps Us Care for You: No Feels Safe at Home: Yes Safety Concerns: Feels Safe At This Time Assistive Devices: Cane Assistive Devices Comment: ONLY USES A CANE OUTSIDE NOT INSIDE Physical Exam Constitutional: cachectic spitting up blood tinged sputum Skin: right groin with matted group of lymph nodes, about 6 cm across, tender, mild erythema overlying, no abscess, no warmth. Results & Data Vital Signs (Past 12 Hours) Vital Signs Temp Pulse Pulse Pulse Resp BP BP 12/18/22 19:46 100 H 18 12/18/22 19:03 36.5 C 101 H 18 137/84 12/18/22 16:30 12/18/22 16:21 115 H 12/18/22 16:00 36.6 C 113 H 24 12/18/22 15:24 110 H 24 143/79 H 12/18/22 14:35 90 24 12/18/22 14:00 97 H 22 12/18/22 12:47 109 H 12/18/22 12:39 105 H 24 12/18/22 12:39 105 H 24 12/18/22 12:39 12/18/22 12:39 12/18/22 11:47 36.7 C 135 H 26 H 129/73 BP Pulse Ox O2 Del Method O2 Flow Rate 12/18/22 19:46 100 Nasal Cannula 1 12/18/22 19:03 99 Nasal Cannula 1.5 12/18/22 16:30 Nasal Cannula 2 12/18/22 16:21 12/18/22 16:00 125/95 91 Nasal Cannula 2 12/18/22 15:24 95 Nasal Cannula 2 12/18/22 14:35 100 Nasal Cannula 2 12/18/22 14:00 134/82 100 Nasal Cannula 2 12/18/22 12:47 12/18/22 12:39 99 Nasal Cannula 2 12/18/22 12:39 131/84 99 Nasal Cannula 2 12/18/22 12:39 93 Nasal Cannula 0 12/18/22 12:39 Nasal Cannula 2 12/18/22 11:47 93 Room Air Diagnostic Findings ABDOMEN AND PELVIS CT WITH IV CONTRAST; CT LUMBAR SPINE WITH IV CONTRAST CT DOSE: 372.57 mGy.cm HISTORY: Follow-up study Patient with pathologic right lymphadenopathy. History of hepatic metastatic disease. Left hilar/mediastinal mass. right inguinal abscess vs LN (met) TECHNIQUE: Multiaxial CT images of the abdomen and pelvis were performed following the IV administration of 90 cc of Optiray, A dose lowering technique was utilized adhering to the principles of ALARA. COMPARISON STUDY: CT abdomen and pelvis 10/16/2022, chest CT 11/19/2022 FINDINGS: CT ABDOMEN/PELVIS: Small left pleural effusion with left basilar consolidation. Collapse of the lingula with nodular basilar pleural thickening again noted. Progressive tree-in-bud nodules of the left lower lobe with mild dependent left lower lobe atelectasis. No free air. Unremarkable adrenal glands. There is a 6 cm hypodense focus of the pancreatic tail on image 84 which is too small to characterize. Increased size of a metastatic lesion along the anterior medial margin of the left kidney on image 95 measuring 2.9 x 2.4 cm, previously subcentimeter in size. Progressively worsened multifocal hepatic metastatic disease. Index 3.3 cm lesion within the left hepatic lobe on image 74 previously measured 1.6 cm. There is also increased number of the hepatic metastatic lesions. Patent portal vein. Contracted gallbladder. No hydronephrosis. Mildly distended urinary bladder. Prostatomegaly. Atherosclerosis of the aorta. Progressively worsening metastatic lymph nodes within the abdomen and pelvis. This includes prominent right inguinal lymphadenopathy measuring up to 5.0 x 3.2 cm on image 266, previously 3.8 x 2.1 cm. Additional pathologic perirectal lymph nodes are new/progressed from prior. Right inguinal and retroperitoneal lymph nodes have progressed. 1.8 x 1.1 cm precaval lymph node on image 161 was previously subcentimeter in size. Duodenal diverticula. There is no bowel obstruction. Irregular thickening and enhancement within the anus. Healing subacute right-sided rib fractures. No acute fracture identified. Mild to moderate colonic fecal retention. Noninflamed appendix. 9 mm mesenteric nodule within the pelvis on image 216. Multifocal high-grade stenoses of the femoral arteries secondary to prominent atherosclerotic plaque. CT LUMBAR SPINE: 10 mm anterolisthesis L5 on S1 with chronic L5 pars defects. Severe disc space narrowing at L1-L2. No acute fracture, subluxation or destructive bone lesion identified. Limited evaluation of the central canal and neural foramina by CT technique. No high-grade central canal stenosis. Moderate to severe left with severe right neural foraminal narrowing at L5-S1. IMPRESSION: 1. Significantly progressed metastatic disease compared to the study from 10/16/2022. This includes progressive hepatic and loc disease with a metastatic left retroperitoneal mass abutting the kidney. 2. Irregular thickening and enhancement of the anus suspicious for malignancy. 3. Partially imaged lingular consolidation with small left pleural effusion. Please refer to the chest CT from 11/19/2022 describing the malignant disease within the thorax. 4. Progressive tree-in-bud nodules with mucous plugging within the left lower lobe, likely related to postobstructive pneumonitis. 5. No acute fracture or destructive bone lesions identified.
[2022-12-19] MEDS: DOXYCYCLINE HYCLATE 100 MG in DEXTROSE 5% MINI-B 100 ML IV SCH ×2 (03:23→15:59)
[2022-12-19] MEDS: PIPERACILLIN/TAZOBACTAM 4.5 GM in DEXTROSE 5% MINI-B 100 ML IV SCH ×3 (03:28→19:27)
[2022-12-19] MEDS: ALBUT/IPRATROP 3MG/0.5MG NEB 3 ML VIAL NEB SCH ×2 (07:36→11:23)
[2022-12-19] MEDS: HEPARIN SOD 5,000 UNIT/0.5 ML VIAL SQ SCH ×2 (08:31→20:57)
[2022-12-19] MEDS: DOCUSATE SODIUM 100 MG CAP PO SCH ×2 (08:32→20:57)
[2022-12-19 09:01] LABS: BUN Creatinine Ratio 14.8 (10-20); Calcium 8.7 mg/dl (8.6-10.3); Creatinine Clr Calc Pharmacy 55.7 ml/min; Est GFR (African American) 109.6 ml/min; Est GFR (Non-African American) 94.6 ml/min; Potassium 4.2 mmol/L (3.5-5.1)
--- NOTE | 2022-12-19 09:13 | Hospitalist Progress Note ---
Date of Service December 19, 2022 Assessment & Plan (1) Sepsis: Plan: possibly 2/2 pna. resuscitated, cont broad spectrum abx at this time. (2) Lung mass: Plan: This is a 62 y/o male with moderate COPD, history tobacco abuse, HTN, hx torsades de pointes due to electrolyte imbalance, and RLE atherosclerosis and claudication who presents to the ED from outpatient pulmonology with tachycardia and borderline hypoxia. He has a known left hilar mass, which was enlarging on most recent outpatient CT. He followed up with pulmonology today who noted he has been progressively worsening overall and referred him to the ED for evaluation and possible admission. In the ED, he was placed on 2L of O2 and given IVF as well as empiric Zosyn. Biopsy of lung mass is anticipated for next week. Due to worsening condition overall, hypoxia, and likely post-obstructive pneumonia, pt was referred for admission. - Admit to PCU - Continue broad-spectrum antibiotics with Zosyn but will add doxycycline - Duonebs QID and prn - Incentive spirometry, flutter valve - Consult pulmonology - spoke with outpatient pulm SALLY Ochoa who stated biopsy would likely not be until next week at the earliest so pt given a diet for now - Fall precautions, aspiration precautions - Continue O2 titrated as needed to maintain sats - Pt meets sepsis criteria with initial tachycardia, tachypnea, leukocytosis and pulmonary source of infection so will check lactate and procalcitonin. Blood cultures already drawn and pending. - Continue IVF for additional liter then reassess fluid status. Repeat BMP in the AM due to hyponatremia, which was worked up during last admission. - CT L-spine due to increasing back pain - rule out mets (3) Abnormal chest CT: Plan: possible postobstructive pneumonia. Cont Zosyn/doxy and will add vancomycin if MRSA nasal swab is positive. (4) Mass of right inguinal region: Plan: May be metastatic disease to LN vs. abscess - pt reports increasing size and discomfort - CT abd/pel for further evaluation - Pt already on broad-spectrum antibiotics to cover for infection - General surgery evaluation deferred biopsy, will ask IR to biopsy this area on Wednesday (5) COPD (chronic obstructive pulmonary disease): Plan: chronic, stable. no wheezing or hypoxia present. duonebs PRN (6) Mycobacterium avium complex: Plan: noted per records (7) Tobacco use disorder: Plan: ongoing smoker, declines nicoderm patch (8) Malnutrition: Plan: likely related to cancer, pending biopsy. Regular diet and nutrition consult. DVT proph: heparin Full COde Dispo-cont PCU I discussed the upcoming workup of his lung mass with pulmonnology. I spent a total [id number] coordinating, documenting, and providing care for this patient excluding time spent in the performance of separately billed services Berkley Perez DO [facility] Hospitalist Admission and Anticipated Discharge Date Admission Date: December 18, 2022 Subjective 62-year-old man sent to the ER from pulmonary clinic secondary to increasing shortness of breath with signs of sepsis given tachypnea and tachycardia. Findings consistent with left upper lobe collapse, diffuse perihilar opacity of the left and left hilar mass with mediastinal adenopathy as noted per CT chest on November 19. CT abdomen pelvis also obtained revealing significant progression of metastatic cancer of presumed lung etiology including hepatic mets, left retroperitoneal mass and large necrotic right inguinal lymph node. Appetite has been low over the last few days. Today he reports a persistent cough and some chest discomfort when he takes a deep breath. He is still very winded even at rest. He declines a NicoDerm patch at this time. Per pulmonology consultation, will try for inguinal lymph node biopsy with interventional radiology on Wednesday. Physical Exam Physical Exam: CONSTITUTIONAL: cachectic, vitals as above, generally ill appearing. EYES: normal conjunctivae, no scleral icterus ENT: external ear and nose normal, gonzalez and mustache with nicotine stains. NECK: trachea midline RESPIRATORY: clear to auscultation bilaterally with decreased breath sounds throughout, no crackles, rales or wheezes, normal respiratory effort CARDIOVASCULAR: regular rate and rhythm, S1 and 2 heard without murmurs, gallops or rubs, no JVD, no peripheral edema CHEST: inspection of chest was normal GASTROINTESTINAL: soft, nontender, ND, no guarding MUSCULOSKELETAL: strength 5/5 throughout, head is normocephalic and atraumatic, SKIN: warm and dry NEUROLOGIC: CN 2-12 grossly intact, no sensory deficit, normal cognition, normal speech, no tremor PSYCHIATRIC: alert cooperative and oriented to person, place and time. Euthymic mood, makes good eye contact, language grossly intact, recent and remote memory grossly intact. LYMPHATIC: hardened, painful inguinal lymph node on the right. Results & Data Results & Data Vital Signs (Past 12 Hours) Vital Signs Temp Pulse Resp BP Pulse Ox O2 Del Method O2 Flow Rate 12/19/22 07:44 36.4 C L 78 16 148/82 H 16 L Nasal Cannula 1.5 12/19/22 07:36 76 16 99 Nasal Cannula 1 12/19/22 03:37 36.5 C 83 16 135/82 99 Nasal Cannula 1.5 12/18/22 23:00 36.4 C L 101 H 16 130/87 97 Nasal Cannula 1.5 Laboratory Results Short CBC 12/18/22 12/19/22 Range/Units 11:58 08:11 WBC 19.15 H Cancelled (4.8-10.8) K/ul Hgb 11.3 L Cancelled (14.0-18.0) g/dl Hct 33.9 L Cancelled (42.0-52.0) % Plt Count 667 H Cancelled (130-400) K/uL BMP 12/18/22 12/19/22 11:58 08:11 Sodium 130 L 132 L Potassium 4.4 4.2 Chloride 92 L 97 L Carbon Dioxide 28 26 BUN 12 12 Creatinine 0.76 0.81 Glucose 94 105 H Calcium 9.5 8.7 Liver Function 12/18/22 Range/Units 11:58 Total Bilirubin 0.5 (0.2-1.0) mg/dl AST 25 (13-39) U/L ALT 10 (7-52) U/L Alkaline Phosphatase 202 H (34-104) U/L Albumin 3.1 L (3.4-5.0) gm/dl Urine 12/18/22 Range/Units 19:35 Urine Color Yellow Urine Appearance Clear (Clear) Urine pH 6.0 (4.5-7.5) Ur Specific [place] > 1.045 H (1.000-1.030) Urine Protein Trace H (Negative) Urine Glucose (UA) Negative (Negative) Medications Administered Current Inpatient Medications Acetaminophen (Acetaminophen 325 Mg Tab) 650 mg PO Q4H PRN PRN Reason: Pain or Fever Stop: 01/17/23 16:06 Albuterol (Albut/Ipratrop 3mg/0.5mg Neb 3 Ml Vial) 3 ml NEB QIDR EMMA; Protocol Stop: 01/17/23 14:59 Last Admin: 12/19/22 07:36 Dose: 3 ml Diphenhydramine HCl (Diphenhydramine Capsule 25 Mg Cap) 25 mg PO Q6H PRN PRN Reason: Itching Stop: 01/17/23 16:59 Docusate Sodium (Docusate Sodium 100 Mg Cap) 100 mg PO BID EMMA Stop: 01/17/23 20:59 Last Admin: 12/19/22 08:32 Dose: Not Given Heparin Sodium (Porcine) (Heparin Sod 5,000 Unit/0.5 Ml Vial) 5,000 units SQ Q12 EMMA Stop: 01/17/23 20:59 Last Admin: 12/19/22 08:31 Dose: 5,000 units Doxycycline Hyclate 100 mg/ (Dextrose) 100 mls @ 50 mls/hr IV Q12H [facility] Stop: 12/25/22 15:44 Last Infusion: 12/19/22 05:40 Dose: Infused Piperacillin Sod/Tazobactam (Sod 4.5 gm/ Dextrose) 100 mls @ 25 mls/hr IV Q8H [facility]; Protocol Stop: 12/25/22 19:59 Last Infusion: 12/19/22 07:38 Dose: Infused Oxycodone/Acetaminophen (Oxycodone/Acetaminophen 5mg/325mg Tab) 1 tab PO Q4H PRN PRN Reason: Pain Stop: 01/01/23 16:48 (5) COPD (chronic obstructive pulmonary disease) COPD type: emphysema Emphysema type: unspecified Qualified Code(s): J43.9 - Emphysema, unspecified (8) Malnutrition Malnutrition type: protein-calorie malnutrition Protein-calorie malnutrition severity: severe Qualified Code(s): E43 - Unspecified severe protein-calorie malnutrition
[2022-12-19 09:36] LABS: Hematocrit (blood only) 28.4 % (42.0-52.0); Hemoglobin 9.3 g/dl (14.0-18.0); Mean Corpuscular Hgb Conc 32.7 g/dL (32.0-36.0); Mean Corpuscular Volume 88.5 fL (80.0-100.0); Mean Platelet Volume 9.7 fL (9.4-12.4); Platelet Count 532 K/uL (130-400); RDW Coefficient of Variation 16.6 % (11.5-14.5); RDW Standard Deviation 53.8 fL (36.4-46.3); Red Blood Count 3.21 M/uL (4.70-6.10); White Blood Count 16.15 K/ul (4.8-10.8)
[2022-12-19 10:01] LABS: Basophils # (auto) 0.02 K/uL (0.00-0.20); Basophils % (auto) 0.1 %; Immature Granulocytes # (auto) 0.09 K/uL (0.01-0.20); Immature Granulocytes % (auto) 0.6 %; Lymphocytes # (auto) 0.42 K/uL (1.20-3.40); Lymphocytes % (auto) 2.6 %; Monocytes % (auto) 3.7 %; Neutrophils # (auto) 15.02 K/uL (1.40-6.50)
[2022-12-19] MEDS ORDERED: LEVALBUTEROL HCL 0.63 MG/3 ML NEB NEB PRN (14:58)
--- NOTE | 2022-12-19 14:59 | Pulmonary Consultation ---
Date of Consultation December 19, 2022 Assessment & Plan (1) Lung mass: Patient appears to have widely metastatic cancer without a tissue sample. Could certainly consider bronchoscopy, but core needle biopsy of necrotic right inguinal lymph node would be readily accessible by interventional radiology as it is palpable and a simpler procedure. This would also confer diagnosis of stage IV disease if proven to be positive. Recommend palliative care consultation and oncology consultation as well. Recommend MRI of the brain to rule out brain mets. (2) Mass of right inguinal region: I placed an order for IR guided biopsy of the right inguinal mass. Please hold heparin Wednesday evening evening and the morning of the procedure. (3) COPD (chronic obstructive pulmonary disease): No signs of COPD exacerbation at present. Will order Xopenex/Atrovent every 6 hours as needed. COPD type: emphysema Emphysema type: unspecified Qualified Code(s): J43.9 - Emphysema, unspecified (4) Sepsis: Possibly secondary to postobstructive pneumonia. Agree with empiric antibiotics. Obtain MRSA screen and if positive, initiate vancomycin. Defer hydration to primary team. Plan Thank you for the consultation. We will follow. History of Present Illness Reason for Consultation: Widespread metastatic disease Attending Physician: Berkley Perez, DO History of Present Illness Patient seen yesterday in the pulmonary clinic by SALLY Ochoa was found to be short of breath with signs of sepsis given tachypnea and tachycardia. He was sent to the emergency department where chest x-ray was performed. He had findings of left upper lobe collapse, diffuse perihilar opacity of the left and a left hilar mass with mediastinal adenopathy as noted per the CT chest that was completed November 19. CT abdomen and pelvis was also obtained which revealed significant progression of metastatic cancer including hepatic mets, left retroperitoneal mass and large necrotic right inguinal lymph node. Patient relates that he has been essentially unable to eat for the last few days and has been very short of breath. Endorses a chronic cough. Denies any chest pain at present. He is currently on Zosyn for possible aspiration pneumonia. Allergies Allergy/AdvReac Type Severity Reaction Status Date / Time No Known Allergies Allergy Unverified 12/18/22 14:19 Home Medications Medication Instructions Recorded Confirmed Type No Known Home Medications 12/18/22 12/18/22 History Patient History Medical History COPD (chronic obstructive pulmonary disease) History of torsades de pointes Tobacco use disorder Atherosclerosis of lower extremity with intermittent claudication "right leg" Hypertension Surgical History S/P tonsillectomy and adenoidectomy History of dental surgery Family History Mother Diabetes Heart disease Social History Smoking Status: Current every day smoker Tobacco Type: Cigarettes Cigarettes Per Day: 10-15/DAY; Second Hand Exposure: No; Do You Dip or Chew Tobacco: No; Tobacco Cessation Education Requested by Patient: No Hx Alcohol Use: Yes Alcohol type: beer Hx Substance Use: Yes Last Used Substance Other:: 20-30 YEARS AGO Preferred Language: Romanian Communication Ability: Effective Supervisor Incising Required: No Beliefs That Will Affect Care: None Current Living Situation: Alone Other Information That Helps Us Care for You: No Feels Safe at Home: Yes Safety Concerns: Feels Safe At This Time Assistive Devices: Cane Assistive Devices Comment: ONLY USES A CANE OUTSIDE NOT INSIDE Review of Systems Review of Systems: All systems reviewed & are unremarkable except as noted in HPI & below Physical Exam Physical Exam: VITAL SIGNS - Vital signs and nursing notes were reviewed. GENERAL - 62-year-old cachectic male appearing his stated age who is in no acute distress. Communicates well with provider and answers questions appropriately. SKIN - Without rashes or lesions. NOSE - Midline and without cyanosis. MOUTH/OROPHARYNX - Without perioral cyanosis. NECK - Neck with FROM. LUNGS - Auscultation reveals diminished breath sounds on the LEFT with slight inspiratory wheezes noted. CARDIAC - RRR with S1/S2. No murmur, rubs, or gallops appreciated. ABDOMEN - Abdominal inspection demonstrates a scaphoid abdomen. BS normoactive all four quadrants. Large nonpulsatile mass noted in the right inguinal region. EXTREMITIES - Nail clubbing not present. No peripheral cyanosis. No pretibial edema present. +3/5 radial palpated throughout. PSYCH - A&Ox3 and cooperates fully with examiner. Pt is very pleasant and interacts well with examiner. Results & Data Results & Data Vital Signs (Past 12 Hours) Vital Signs Temp Pulse Pulse Resp BP Pulse Ox O2 Del Method 11/04/23 11:24 92 H 16 96 Room Air 12/19/22 11:17 36.6 C 99 H 18 123/77 95 Room Air 12/19/22 08:00 93 H 12/19/22 08:00 Nasal Cannula 12/19/22 07:44 36.4 C L 78 16 148/82 H 16 L Nasal Cannula 12/19/22 07:36 76 16 99 Nasal Cannula 12/19/22 03:37 36.5 C 83 16 135/82 99 Nasal Cannula O2 Flow Rate 12/19/22 11:24 12/19/22 11:17 12/19/22 08:00 12/19/22 08:00 2 12/19/22 07:44 1.5 12/19/22 07:36 1 12/19/22 03:37 1.5 PG Care Time/CCT Total # of Minutes Spent Total Time Spent with Patient: Total time spent is greater than 50% in coordination of care (as documented) at patient's floor/unit and/or counseling patient: Coding Level of Care Code 84046 INT INP/OBS CARE 3/75MIN Diagnoses Lung mass R91.8 Mass of right inguinal region R19.09 Pulmonary emphysema, unspecified emphysema type J43.9 COPD type: emphysema Emphysema type: unspecified Sepsis A41.9
[2022-12-19] MEDS ORDERED: LEVALBUTEROL HCL 0.63 MG/3 ML NEB NEB SCH (19:00)
[2022-12-19] MEDS: ACETAMINOPHEN 325 MG TAB PO PRN (21:00)
[2022-12-20] MEDS: DOXYCYCLINE HYCLATE 100 MG in DEXTROSE 5% MINI-B 100 ML IV SCH ×2 (03:14→17:40)
[2022-12-20] MEDS: PIPERACILLIN/TAZOBACTAM 4.5 GM in DEXTROSE 5% MINI-B 100 ML IV SCH ×3 (03:15→19:36)
[2022-12-20] MEDS: ACETAMINOPHEN 325 MG TAB PO PRN (05:18)
[2022-12-20] MEDS: DOCUSATE SODIUM 100 MG CAP PO SCH ×2 (07:59→19:33)
[2022-12-20] MEDS: HEPARIN SOD 5,000 UNIT/0.5 ML VIAL SQ SCH (07:59)
[2022-12-20 08:03] LABS: Hematocrit (blood only) 28.7 % (42.0-52.0); Hemoglobin 9.5 g/dl (14.0-18.0); Mean Corpuscular Hemoglobin 29.4 pg (25.0-34.0); Mean Corpuscular Hgb Conc 33.1 g/dL (32.0-36.0); Mean Corpuscular Volume 88.9 fL (80.0-100.0); Mean Platelet Volume 9.7 fL (9.4-12.4); Platelet Count 531 K/uL (130-400); RDW Coefficient of Variation 16.3 % (11.5-14.5); RDW Standard Deviation 53.2 fL (36.4-46.3); Red Blood Count 3.23 M/uL (4.70-6.10)
[2022-12-20 08:20] LABS: BUN Creatinine Ratio 16.9 (10-20); Calcium 8.3 mg/dl (8.6-10.3); Creatinine Clr Calc Pharmacy 69.4 ml/min; Est GFR (African American) 115.7 ml/min; Est GFR (Non-African American) 99.9 ml/min; Magnesium 1.6 mg/dl (1.7-2.4); Phosphorus 2.9 mg/dl (2.5-4.9); Potassium 3.9 mmol/L (3.5-5.1)
[2022-12-20] MEDS ORDERED: MAGNESIUM SULFATE 50% 4 GM in SODIUM CHLORIDE 0.9% 1,000 ML IV SCH (10:00)
--- NOTE | 2022-12-20 10:04 | Hospitalist Progress Note ---
Date of Service December 20, 2022 Assessment & Plan (1) Sepsis: Plan: possibly 2/2 pna. resuscitated, cont broad spectrum abx at this time. (2) Lung mass: Plan: This is a 62 y/o male with moderate COPD, history tobacco abuse, HTN, hx torsades de pointes due to electrolyte imbalance, and RLE atherosclerosis and claudication who presents to the ED from outpatient pulmonology with tachycardia and borderline hypoxia. He has a known left hilar mass, which was enlarging on most recent outpatient CT. He followed up with pulmonology today who noted he has been progressively worsening overall and referred him to the ED for evaluation and possible admission. In the ED, he was placed on 2L of O2 and given IVF as well as empiric Zosyn. Biopsy of lung mass is anticipated for next week. Due to worsening condition overall, hypoxia, and likely post-obstructive pneumonia, pt was referred for admission. - Admit to PCU - Continue broad-spectrum antibiotics with Zosyn but will add doxycycline - Duonebs QID and prn - Incentive spirometry, flutter valve - Consult pulmonology - spoke with outpatient pulm SALLY Ochoa who stated biopsy would likely not be until next week at the earliest so pt given a diet for now - Fall precautions, aspiration precautions - Continue O2 titrated as needed to maintain sats - Pt meets sepsis criteria with initial tachycardia, tachypnea, leukocytosis and pulmonary source of infection so will check lactate and procalcitonin. Blood cultures already drawn and negative to date. 12/20 improved today but still with dyspnea on exertion. multiple sites of mets on CT scans. plan for inguinal LN bx in am with IR for tissue dx, then will engage with oncology for treatment options. Ashlisin AC for cough and to help him get some sleep which he didn't get much of last night. (3) Abnormal chest CT: Plan: possible postobstructive pneumonia. leukocytosis and reactive thormbocytosis improved, Cont Zosyn/doxy (4) Mass of right inguinal region: Plan: May be metastatic disease to LN vs. abscess - pt reports increasing size and dis comfort - CT abd/pel for further evaluation - Pt already on broad-spectrum antibiotics to cover for infection - General surgery evaluation deferred biopsy, will ask IR to biopsy this area on Wednesday (5) COPD (chronic obstructive pulmonary disease): Plan: chronic, stable. no wheezing or hypoxia present. duonebs PRN (6) Mycobacterium avium complex: Plan: noted per records (7) Tobacco use disorder: Plan: ongoing smoker, declines nicoderm patch (8) Malnutrition: Plan: likely related to cancer, pending biopsy. Regular diet and nutrition consult. DVT proph: heparin Full COde Dispo-cont PCU I spent a total [id number] coordinating, documenting, and providing care for this patient excluding time spent in the performance of separately billed services [facility] and Anticipated Discharge Date Admission Date: December 18, 2022 Subjective 62-year-old man sent to the ER from pulmonary clinic secondary to increasing shortness of breath with signs of sepsis given tachypnea and tachycardia. Findings consistent with left upper lobe collapse, diffuse perihilar opacity of the left and left hilar mass with mediastinal adenopathy as noted per CT chest on November 19. CT abdomen pelvis also obtained revealing significant progression of metastatic cancer of presumed lung etiology including hepatic mets, left retroperitoneal mass and large necrotic right inguinal lymph node. Appetite has been low over the last few days. Mg replaced today He reports a poor appetite some chest pain present with coughing fits productive cough with mucous and scant blood he is able to walk but reports dyspnea still with exertion, better at rest since abx started. interested in pursuing cancer treatment Physical Exam Physical Exam: CONSTITUTIONAL: cachectic, vitals as above, generally ill appearing. EYES: normal conjunctivae, no scleral icterus ENT: external ear and nose normal, gonzalez and mustache with nicotine stains. NECK: trachea midline RESPIRATORY: clear to auscultation bilaterally with decreased breath sounds throughout, no crackles, rales or wheezes, normal respiratory effort CARDIOVASCULAR: regular rate and rhythm, S1 and 2 heard without murmurs, gallops or rubs, no JVD, no peripheral edema CHEST: inspection of chest was normal GASTROINTESTINAL: soft, nontender, ND, no guarding MUSCULOSKELETAL: strength 5/5 throughout, head is normocephalic and atraumatic, SKIN: warm and dry NEUROLOGIC: CN 2-12 grossly intact, no sensory deficit, normal cognition, normal speech, no tremor PSYCHIATRIC: alert cooperative and oriented to person, place and time. Euthymic mood, makes good eye contact, language grossly intact, recent and remote memory grossly intact. LYMPHATIC: hardened, painful inguinal lymph node on the right. Results & Data Results & Data Vital Signs (Past 12 Hours) Vital Signs Temp Pulse Pulse Resp BP Pulse Ox O2 Del Method 12/20/22 08:00 84 12/20/22 08:00 Nasal Cannula 12/20/22 07:32 36.7 C 83 18 147/96 H 97 Nasal Cannula 12/20/22 03:01 36.4 C L 90 16 156/89 H 97 Nasal Cannula O2 Flow Rate 12/20/22 08:00 12/20/22 08:00 1 12/20/22 07:32 1.5 12/20/22 03:01 Laboratory Results Short CBC 12/20/22 Range/Units 07:26 WBC 13.20 H (4.8-10.8) K/ul Hgb 9.5 L (14.0-18.0) g/dl Hct 28.7 L (42.0-52.0) % Plt Count 531 H (130-400) K/uL BMP 12/20/22 07:26 Sodium 133 L Potassium 3.9 Chloride 97 L Carbon Dioxide 31 BUN 12 Creatinine 0.71 Glucose 79 Calcium 8.3 L Medications Administered Current Inpatient Medications Acetaminophen (Acetaminophen 325 Mg Tab) 650 mg PO Q4H PRN PRN Reason: Pain or Fever Stop: 01/17/23 16:06 Last Admin: 12/20/22 05:18 Dose: 650 mg Diphenhydramine HCl (Diphenhydramine Capsule 25 Mg Cap) 25 mg PO Q6H PRN PRN Reason: Itching Stop: 01/17/23 16:59 Last Admin: 12/20/22 01:45 EST Dose: 25 mg Docusate Sodium (Docusate Sodium 100 Mg Cap) 100 mg PO BID [facility] Stop: 01/17/23 20:59 Last Admin: 12/20/22 07:59 Dose: 100 mg Heparin Sodium (Porcine) (Heparin Sod 5,000 Unit/0.5 Ml Vial) 5,000 units SQ Q12 [facility] Stop: 01/17/23 20:59 Last Admin: 12/20/22 07:59 Dose: 5,000 units Doxycycline Hyclate 100 mg/ (Dextrose) 100 mls @ 50 mls/hr IV Q12H [facility] Stop: 12/25/22 15:44 Last Infusion: 12/20/22 05:24 Dose: Infused Piperacillin Sod/Tazobactam (Sod 4.5 gm/ Dextrose) 100 mls @ 25 mls/hr IV Q8H [facility]; Protocol Stop: 12/25/22 19:59 Last Infusion: 12/20/22 07:59 Dose: Infused Magnesium Sulfate 4 gm/ Sodium (Chloride) 1,008 mls @ 125 mls/hr IV .Q8H4M [facility] Stop: 12/20/22 18:03 Levalbuterol HCl (Levalbuterol Hcl 0.63 Mg/3 Ml Neb) 0.63 mg NEB Q6R PRN; Protocol PRN Reason: wheezing Stop: 01/18/23 18:59 Oxycodone/Acetaminophen (Oxycodone/Acetaminophen 5mg/325mg Tab) 1 tab PO Q4H PRN PRN Reason: Pain Stop: 01/01/23 16:48 (5) COPD (chronic obstructive pulmonary disease) COPD type: emphysema Emphysema type: unspecified Qualified Code(s): J43.9 - Emphysema, unspecified (8) Malnutrition Malnutrition type: protein-calorie malnutrition Protein-calorie malnutrition severity: severe Qualified Code(s): E43 - Unspecified severe protein-calorie malnutrition
[2022-12-20] MEDS ORDERED: guaiFENesin/CODEINE 100MG/10MG 5ML UDC PO STA (17:15)
[2022-12-21] MEDS: DOXYCYCLINE HYCLATE 100 MG in DEXTROSE 5% MINI-B 100 ML IV SCH ×2 (02:39→15:24)
[2022-12-21] MEDS: PIPERACILLIN/TAZOBACTAM 4.5 GM in DEXTROSE 5% MINI-B 100 ML IV SCH ×3 (05:00→20:12)
[2022-12-21 07:27] LABS: Hematocrit (blood only) 30.7 % (42.0-52.0); Hemoglobin 9.9 g/dl (14.0-18.0); Mean Corpuscular Hemoglobin 28.5 pg (25.0-34.0); Mean Corpuscular Hgb Conc 32.2 g/dL (32.0-36.0); Mean Corpuscular Volume 88.5 fL (80.0-100.0); Mean Platelet Volume 9.5 fL (9.4-12.4); Platelet Count 577 K/uL (130-400); RDW Coefficient of Variation 16.6 % (11.5-14.5); RDW Standard Deviation 53.5 fL (36.4-46.3); Red Blood Count 3.47 M/uL (4.70-6.10); White Blood Count 15.28 K/ul (4.8-10.8)
[2022-12-21 07:44] LABS: BUN Creatinine Ratio 16.1 (10-20); Calcium 8.3 mg/dl (8.6-10.3); Creatinine Clr Calc Pharmacy 87.8 ml/min; Est GFR (African American) 127.6 ml/min; Est GFR (Non-African American) 110.1 ml/min; Magnesium 2.1 mg/dl (1.7-2.4)
--- NOTE | 2022-12-21 08:54 | Hospitalist Progress Note ---
Date of Service December 21, 2022 Assessment & Plan (1) Sepsis: Plan: possibly 2/2 pna. resuscitated, cont broad spectrum abx at this time. (2) Lung mass: Plan: This is a 62 y/o male with moderate COPD, history tobacco abuse, HTN, hx torsades de pointes due to electrolyte imbalance, and RLE atherosclerosis and claudication who presents to the ED from outpatient pulmonology with tachycardia and borderline hypoxia. He has a known left hilar mass, which was enlarging on most recent outpatient CT. He followed up with pulmonology today who noted he has been progressively worsening overall and referred him to the ED for evaluation and possible admission. In the ED, he was placed on 2L of O2 and given IVF as well as empiric Zosyn. Biopsy of lung mass is anticipated for next week. Due to worsening condition overall, hypoxia, and likely post-obstructive pneumonia, pt was referred for admission. - Admit to PCU - Continue broad-spectrum antibiotics with Zosyn but will add doxycycline - Duonebs QID and prn - Incentive spirometry, flutter valve - Consult pulmonology - spoke with outpatient pulm SALLY Ochoa who stated biopsy would likely not be until next week at the earliest so pt given a diet for now - Fall precautions, aspiration precautions - Continue O2 titrated as needed to maintain sats - Pt meets sepsis criteria with initial tachycardia, tachypnea, leukocytosis and pulmonary source of infection so will check lactate and procalcitonin. Blood cultures already drawn and negative to date. 12/20 improved today but still with dyspnea on exertion. multiple sites of mets on CT scans. plan for inguinal LN bx in am with IR for tissue dx, then will engage with oncology for treatment options. Robitussin AC for cough and to help him get some sleep which he didn't get much of last night. 12/21: Robitussin AC helpful-redosed. Inguinal LN biopsy for tissue. As patient is not well enough to leave the hospital and this cancer is progressing rapidly, will ask Oncology to see him and start a discussion about treatment options. (3) Abnormal chest CT: Plan: MARTHA collapse, possible postobstructive pneumonia. leukocytosis and reactive thormbocytosis improved, Cont Zosyn/doxy. Defer to pulmonology for bronchoscopy. Will plan to repeat CXR in am to see if any improvement with antibiotics. (4) Mass of right inguinal region: Plan: May be metastatic disease to LN vs. abscess - pt reports increasing size and discomfort - CT abd/pel for further evaluation - Pt already on broad-spectrum antibiotics to cover for infection - IR bx today (12/21) [facility] pathology pending. (5) COPD (chronic obstructive pulmonary disease): Plan: chronic, stable. no wheezing or hypoxia present. duonebs PRN (6) Mycobacterium avium complex: Plan: noted per records (7) Tobacco use disorder: Plan: ongoing smoker, declines nicoderm patch (8) Malnutrition: Plan: likely related to cancer, pending biopsy. Regular diet and nutrition consult. DVT proph: heparin Full COde Dispo-cont PCU I spent a total [id number] coordinating, documenting, and providing care for this patient excluding time spent in the performance of separately billed services DO [facility] Hospitalist Admission and Anticipated Discharge Date Admission Date: December 18, 2022 Subjective 62-year-old man sent to the ER from pulmonary clinic secondary to increasing shortness of breath with signs of sepsis given tachypnea and tachycardia. Findings consistent with left upper lobe collapse, diffuse perihilar opacity of the left and left hilar mass with mediastinal adenopathy as noted per CT chest on November 19. CT abdomen pelvis also obtained revealing significant progression of metastatic cancer of presumed lung etiology including hepatic mets, left retroperitoneal mass and large necrotic right inguinal lymph node. Appetite has been low over the last few days. Patient underwent right inguinal lymph node biopsy under ultrasound guidance today. Pathology pending. He continues to report dyspnea on exertion and feels better with cough syrup and antibiotics. Son and D IL were at bedside and updated. All questions were answered. Physical Exam Physical Exam: CONSTITUTIONAL: cachectic, vitals as above, generally ill appearing. NAD EYES: normal conjunctivae, no scleral icterus ENT: external ear and nose normal, gonzalez and mustache with nicotine stains. NECK: trachea midline RESPIRATORY: clear to auscultation bilaterally with decreased breath sounds throughout, no crackles, rales or wheezes, normal respiratory effort CARDIOVASCULAR: regular rate and rhythm, S1 and 2 heard without murmurs, gallops or rubs, no JVD, no peripheral edema CHEST: inspection of chest was normal GASTROINTESTINAL: soft, nontender, ND, no guarding MUSCULOSKELETAL: strength 5/5 throughout, head is normocephalic and atraumatic, SKIN: warm and dry NEUROLOGIC: CN 2-12 grossly intact, no sensory deficit, normal cognition, normal speech, no tremor PSYCHIATRIC: alert cooperative and oriented to person, place and time. Euthymic mood, makes good eye contact, language grossly intact, recent and remote memory grossly intact. LYMPHATIC: hardened, painful inguinal lymph node on the right. Results & Data Results & Data Vital Signs (Past 12 Hours) Vital Signs Temp Pulse Pulse Resp BP Pulse Ox O2 Del Method 12/21/22 07:54 37.0 C 93 H 18 146/94 H 93 Room Air 12/21/22 02:44 36.8 C 90 20 129/92 92 Room Air 12/20/22 23:24 96 H 12/20/22 22:21 36.6 C 115 H 20 157/93 H 90 Room Air Laboratory Results Short CBC 12/21/22 Range/Units 06:44 WBC 15.28 H (4.8-10.8) K/ul Hgb 9.9 L (14.0-18.0) g/dl Hct 30.7 L (42.0-52.0) % Plt Count 577 H (130-400) K/uL BMP 12/21/22 06:44 Sodium 131 L Potassium 4.0 Chloride 97 L Carbon Dioxide 30 BUN 9 Creatinine 0.56 L Glucose 77 Calcium 8.3 L Medications Administered Current Inpatient Medications Acetaminophen (Acetaminophen 325 Mg Tab) 650 mg PO Q4H PRN PRN Reason: Pain or Fever Stop: 01/17/23 16:06 Last Admin: 12/20/22 05:18 Dose: 650 mg Diphenhydramine HCl (Diphenhydramine Capsule 25 Mg Cap) 25 mg PO Q6H PRN PRN Reason: Itching Stop: 01/17/23 16:59 Last Admin: 12/20/22 01:45 EST Dose: 25 mg Docusate Sodium (Docusate Sodium 100 Mg Cap) 100 mg PO BID EMMA Stop: 01/17/23 20:59 Last Admin: 12/20/22 19:33 Dose: 100 mg Guaifenesin/Codeine Phosphate (Guaifenesin/Codeine 200mg/20mg 10ml Udc) 10 ml PO Q6H PRN PRN Reason: Cough Stop: 01/19/23 17:14 Last Admin: 12/20/22 23:44 Dose: 10 ml Heparin Sodium (Porcine) (Heparin Sod 5,000 Unit/0.5 Ml Vial) 5,000 units SQ Q12 EMMA Stop: 01/17/23 20:59 Last Admin: 12/20/22 07:59 Dose: 5,000 units Doxycycline Hyclate 100 mg/ (Dextrose) 100 mls @ 50 mls/hr IV Q12H [facility] Stop: 12/25/22 15:44 Last Infusion: 12/21/22 05:00 Dose: Infused Piperacillin Sod/Tazobactam (Sod 4.5 gm/ Dextrose) 100 mls @ 25 mls/hr IV Q8H [facility]; Protocol Stop: 12/25/22 19:59 Last Admin: 12/21/22 05:00 Dose: 25 mls/hr Levalbuterol HCl (Levalbuterol Hcl 0.63 Mg/3 Ml Neb) 0.63 mg NEB Q6R PRN; Protocol PRN Reason: wheezing Stop: 01/18/23 18:59 Oxycodone/Acetaminophen (Oxycodone/Acetaminophen 5mg/325mg Tab) 1 tab PO Q4H PRN PRN Reason: Pain Stop: 01/01/23 16:48 (5) COPD (chronic obstructive pulmonary disease) COPD type: emphysema Emphysema type: unspecified Qualified Code(s): J43.9 - Emphysema, unspecified (8) Malnutrition Malnutrition type: protein-calorie malnutrition Protein-calorie malnutrition severity: severe Qualified Code(s): E43 - Unspecified severe protein-calorie malnutrition
[2022-12-21] MEDS: DOCUSATE SODIUM 100 MG CAP PO SCH ×2 (11:58→20:11)
--- NOTE | 2022-12-21 15:37 | Ultrasound Report ---
Ultrasound-guided right groin lymph node core biopsy INDICATION: Right groin lymphadenopathy PROCEDURE: Procedure and risks were explained. Informed consent was obtained. A final timeout was com pleted. The right groin was prepped and draped in sterile fashion. 1% buffered lidocaine was utilized for skin anesthesia. Utilizing ultrasound guidance, an 18-gauge core biopsy needle was advanced into the abnormal right gr oin lymph node. Ultrasound images were obtained. 3 cores were obtained and given to the pathologist f or review. The needle was removed and Band-Aid applied. The patient tolerated the procedure well. IMPRESSION: Ultrasound-guided right groin lymph node core biopsy as above. Performed, dictated, and signed by Justin Soto PA-C; to be co-signed by Dr. Trever Ellis. Electronically signed by: Trever Ellis M.D. 12/21/2022 3:42 PM
[2022-12-21] MEDS: HEPARIN SOD 5,000 UNIT/0.5 ML VIAL SQ SCH (20:12)
[2022-12-22] MEDS: DOXYCYCLINE HYCLATE 100 MG in DEXTROSE 5% MINI-B 100 ML IV SCH ×2 (03:01→16:50)
[2022-12-22] MEDS: PIPERACILLIN/TAZOBACTAM 4.5 GM in DEXTROSE 5% MINI-B 100 ML IV SCH ×2 (04:52→12:44)
--- NOTE | 2022-12-22 07:47 | Hospitalist Progress Note ---
Date of Service December 22, 2022 Assessment & Plan (1) Sepsis: Plan: possibly 2/2 pna. resuscitated, cont broad spectrum abx at this time. (2) Postobstructive pneumonia: (3) Lung mass: Plan: This is a 62 y/o male with moderate COPD, history tobacco abuse, HTN, hx torsades de pointes due to electrolyte imbalance, and RLE atherosclerosis and claudication who presents to the ED from outpatient pulmonology with tachycardia and borderline hypoxia. He has a known left hilar mass, which was enlarging on most recent outpatient CT. He followed up with pulmonology today who noted he has been progressively worsening overall and referred him to the ED for evaluation and possible admission. In the ED, he was placed on 2L of O2 and given IVF as well as empiric Zosyn. Biopsy of lung mass is anticipated for next week. Due to worsening condition overall, hypoxia, and likely post-obstructive pneumonia, pt was referred for admission. - Admit to PCU - Continue broad-spectrum antibiotics with Zosyn but will add doxycycline - Duonebs QID and prn - Incentive spirometry, flutter valve - Consult pulmonology - spoke with outpatient pulm SALLY Ochoa who stated biopsy would likely not be until next week at the earliest so pt given a diet for now - Fall precautions, aspiration precautions - Continue O2 titrated as needed to maintain sats - Pt meets sepsis criteria with initial tachycardia, tachypnea, leukocytosis and pulmonary source of infection so will check lactate and procalcitonin. Blood cultures already drawn and negative to date. 12/20 improved today but still with dyspnea on exertion. multiple sites of mets on CT scans. plan for inguinal LN bx in am with IR for tissue dx, then will engage with oncology for treatment options. Vadimitussin AC for cough and to help him get some sleep which he didn't get much of last night. 12/21: Robitussin AC helpful-redosed. Inguinal LN biopsy for tissue. As patient is not well enough to leave the hospital and this cancer is progressing rapidly, will ask Oncology to see him and start a discussion about treatment options. 12/22: seen by oncology, brain MRI ordered for further staging. Will need repeat chest CT closer to starting treatment. Path still pending, onc continues to follow. (4) Abnormal chest CT: Plan: MARTHA collapse, possible postobstructive pneumonia. leukocytosis and reactive thormbocytosis improved, Cont Zosyn/doxy. Defer to pulmonology for bronchoscopy. Will plan to repeat CXR in am to see if any improvement with antibiotics. (5) Mass of right inguinal region: Plan: May be metastatic disease to LN vs. abscess - pt reports increasing size and discomfort - CT abd/pel for further evaluation - Pt already on broad-spectrum antibiotics to cover for infection - IR bx (12/21) wtih pathology pending. (6) COPD (chronic obstructive pulmonary disease): Plan: chronic, stable. no wheezing or hypoxia present. duonebs PRN (7) Anemia: Plan: decreased, but stable and patient without bleeding. Likely related to new metastatic process. (8) Mycobacterium avium complex: Plan: noted per records (9) Tobacco use disorder: Plan: ongoing smoker, declines nicoderm patch (10) Malnutrition: Plan: likely related to cancer, pending biopsy. Regular diet and nutrition consult. DVT proph: heparin Full COde Dispo-cont PCU I spent a total [id number] coordinating, documenting, and providing care for this patient excluding time spent in the performance of separately billed services Berkley Perez DO [facility] Hospitalist Admission and Anticipated Discharge Date Admission Date: December 18, 2022 Subjective 62-year-old man sent to the ER from pulmonary clinic secondary to increasing shortness of breath with signs of sepsis given tachypnea and tachycardia. Findings consistent with left upper lobe collapse, diffuse perihilar opacity of the left and left hilar mass with mediastinal adenopathy as noted per CT chest on November 19. CT abdomen pelvis also obtained revealing significant progression of metastatic cancer of presumed lung etiology including hepatic mets, left retroperitoneal mass and large necrotic right inguinal lymph node. Appetite has been low over the last few days. recovering well from inguinal lymph node bx yesterday path still pending unchanged dyspnea symptoms, worse with exertion CXR repeat unchanged after broad spectrum abx, which were de-escalated to PO no plans for bronch per my discussion with pulmonology discussed case with hematology pt tolerating PO but has poor appetite. Physical Exam Physical Exam: CONSTITUTIONAL: cachectic, vitals as above, generally ill appearing. NAD EYES: normal conjunctivae, no scleral icterus ENT: external ear and nose normal, gonzalez and mustache with nicotine stains. NECK: trachea midline RESPIRATORY: clear to auscultation bilaterally with decreased breath sounds throughout, no crackles, rales or wheezes, normal respiratory effort CARDIOVASCULAR: regular rate and rhythm, S1 and 2 heard without murmurs, gallops or rubs, no JVD, no peripheral edema CHEST: inspection of chest was normal GASTROINTESTINAL: soft, nontender, ND, no guarding MUSCULOSKELETAL: strength 5/5 throughout, head is normocephalic and atraumatic, SKIN: warm and dry NEUROLOGIC: CN 2-12 grossly intact, no sensory deficit, normal cognition, normal speech, no tremor PSYCHIATRIC: alert cooperative and oriented to person, place and time. Euthymic mood, makes good eye contact, language grossly intact, recent and remote memory grossly intact. LYMPHATIC: hardened, painful inguinal lymph node on the right. Results & Data Results & Data Vital Signs (Past 12 Hours) Vital Signs Temp Pulse Pulse Resp BP Pulse Ox O2 Del Method 12/22/22 05:58 82 12/22/22 03:00 37.0 C 86 16 147/85 H 91 Room Air 12/21/22 23:11 36.7 C 99 H 21 157/100 H 91 Room Air 12/21/22 21:58 94 H 12/21/22 20:15 Room Air Laboratory Results Short CBC 12/22/22 Range/Units 08:10 WBC 14.23 H (4.8-10.8) K/ul Hgb 10.2 L (14.0-18.0) g/dl Hct 30.5 L (42.0-52.0) % Plt Count 575 H (130-400) K/uL BMP 12/22/22 08:10 Sodium 129 L Potassium 3.5 Chloride 94 L Carbon Dioxide 29 BUN 8 Creatinine 0.59 L Glucose 149 H Calcium 8.4 L Medications Administered Current Inpatient Medications Acetaminophen (Acetaminophen 325 Mg Tab) 650 mg PO Q4H PRN PRN Reason: Pain or Fever Stop: 01/17/23 16:06 Last Admin: 12/20/22 05:18 Dose: 650 mg Diphenhydramine HCl (Diphenhydramine Capsule 25 Mg Cap) 25 mg PO Q6H PRN PRN Reason: Itching Stop: 01/17/23 16:59 Last Admin: 12/20/22 01:45 EST Dose: 25 mg Docusate Sodium (Docusate Sodium 100 Mg Cap) 100 mg PO BID EMMA Stop: 01/17/23 20:59 Last Admin: 12/21/22 20:11 Dose: 100 mg Guaifenesin/Codeine Phosphate (Guaifenesin/Codeine 200mg/20mg 10ml Udc) 10 ml PO Q6H PRN PRN Reason: Cough Stop: 01/19/23 17:14 Last Admin: 12/22/22 01:55 Dose: 10 ml Heparin Sodium (Porcine) (Heparin Sod 5,000 Unit/0.5 Ml Vial) 5,000 units SQ Q12 EMMA Stop: 01/17/23 20:59 Last Admin: 12/21/22 20:12 Dose: 5,000 units Doxycycline Hyclate 100 mg/ (Dextrose) 100 mls @ 50 mls/hr IV Q12H [facility] Stop: 12/25/22 15:44 Last Infusion: 12/22/22 05:01 Dose: Infused Piperacillin Sod/Tazobactam (Sod 4.5 gm/ Dextrose) 100 mls @ 25 mls/hr IV Q8H [facility]; Protocol Stop: 12/25/22 19:59 Last Admin: 12/22/22 04:52 Dose: 25 mls/hr Levalbuterol HCl (Levalbuterol Hcl 0.63 Mg/3 Ml Neb) 0.63 mg NEB Q6R PRN; Protocol PRN Reason: wheezing Stop: 01/18/23 18:59 Oxycodone/Acetaminophen (Oxycodone/Acetaminophen 5mg/325mg Tab) 1 tab PO Q4H PRN PRN Reason: Pain Stop: 01/01/23 16:48 (6) COPD (chronic obstructive pulmonary disease) COPD type: emphysema Emphysema type: unspecified Qualified Code(s): J43.9 - Emphysema, unspecified (10) Malnutrition Malnutrition type: protein-calorie malnutrition Protein-calorie malnutrition severity: severe Qualified Code(s): E43 - Unspecified severe protein-calorie malnutrition
--- NOTE | 2022-12-22 07:51 | XRay Report ---
XR chest 1V portable HISTORY: 62 years-old Male post-operative coughing and wheezing acute cough with wheezing COMPARISON: Chest radiograph 12/18/2022, chest CT 11/19/2022 TECHNIQUE: AP view of the chest FINDINGS: There is progressive opacification left hemithorax which is now greater than 75% with minimal aerated left upper lung. Left lung volume loss/collapse with leftward midline shift. Emphysema. Compensatory hyperinflation of the right lung. Bones appear grossly intact. IMPRESSION: 1. Progressive opacification of the left hemithorax with only minimal aerated left upper lung. Findin gs likely represent progressive consolidation/collapse with possible associated pleural effusion. 2. Pulmonary emphysema. 3. Mediastinal mass is better seen on the comparison chest CT. ACT 112: Negative or not required by law. The above report was generated using voice recognition software. It may contain grammatical, syntax o r spelling errors. Electronically signed by: Trever Ellis M.D. 12/22/2022 7:50 AM
[2022-12-22 08:33] LABS: Basophils # (auto) 0.05 K/uL (0.00-0.20); Basophils % (auto) 0.4 %; Eosinophils # (auto) 0.04 K/uL (0.00-0.50); Eosinophils % (auto) 0.3 %; Hematocrit (blood only) 30.5 % (42.0-52.0); Hemoglobin 10.2 g/dl (14.0-18.0); Immature Granulocytes # (auto) 0.07 K/uL (0.01-0.20); Immature Granulocytes % (auto) 0.5 %; Lymphocytes # (auto) 0.66 K/uL (1.20-3.40); Lymphocytes % (auto) 4.6 %; Mean Corpuscular Hgb Conc 33.4 g/dL (32.0-36.0); Mean Corpuscular Volume 86.6 fL (80.0-100.0); Mean Platelet Volume 9.6 fL (9.4-12.4); Monocytes # (auto) 1.26 K/uL (0.11-0.59); Monocytes % (auto) 8.9 %; Neutrophils # (auto) 12.15 K/uL (1.40-6.50); Neutrophils % (auto) 85.3 %; Platelet Count 575 K/uL (130-400); RDW Coefficient of Variation 17.2 % (11.5-14.5); RDW Standard Deviation 54.1 fL (36.4-46.3); Red Blood Count 3.52 M/uL (4.70-6.10); White Blood Count 14.23 K/ul (4.8-10.8)
[2022-12-22 08:50] LABS: BUN Creatinine Ratio 13.6 (10-20); Calcium 8.4 mg/dl (8.6-10.3); Creatinine Clr Calc Pharmacy 78.3 ml/min; Est GFR (African American) 124.9 ml/min; Est GFR (Non-African American) 107.7 ml/min; Magnesium 1.8 mg/dl (1.7-2.4); Phosphorus 2.9 mg/dl (2.5-4.9); Potassium 3.5 mmol/L (3.5-5.1)
--- NOTE | 2022-12-22 09:02 | Oncology Consultation ---
Date of Consultation December 22, 2022 Assessment & Plan (1) Mass of right inguinal region: (2) Lung mass: (3) Inguinal lymphadenopathy: Plan - Awaiting pathology results from recent inguinal lymph node biopsy. Possibly lung primary in the setting of extensive smoking history and lung mass on CT imaging obtained a month ago. Also has possible anal lesion on imaging. Based on discussion with pathology, lymphoma is also a possibility. Depending on pathology results, may need inpatient chemotherapy given extensive disease. -Recommend obtaining brain MRI for full staging. -Also recommend obtaining updated CT chest for new baseline prior to starting treatment -Recommend anemia panel including iron studies, B12 and folate levels (ordered) Thank you for this consult. Oncology will continue following while patient is in the hospital. Please feel free to call if you have any further questions History of Present Illness Reason for Consultation: Likely metastatic cancer Attending Physician: Berkley Perez, DO History of Present Illness 62-year-old gentleman with more than [id number] history of smoking who presented to the ED at [facility] with worsening shortness of breath. CT abdomen and pelvis obtained the ED on 12/18/2022 revealed progressive hepatic and loc disease with a metastatic left retroperitoneal mass abutting the kidney, Irregular thickening and enhancement of the anus suspicious for malignancy, Partially imaged lingular consolidation with small left pleural effusion and progressive tree-in-bud nodules with mucous plugging within the left lower lobe, likely related to postobstructive pneumonitis. He underwent core biopsy of right inguinal lymph node on 12/21/2022 with pathology pending at time of today's visit. Of note, he was admitted to [facility] a couple of months ago at which time imaging had revealed extensive disease s uspicious for metastatic cancer but he unfortunately signed out AMA prior to obtaining biopsy. CT chest obtained on 11/19/2022 had revealed left hilar mass He complains of dyspnea on exertion, occasional cough. Denies chest pain, abdominal pain, hematochezia or hematemesis. Also denies significant weight loss Allergies Allergy/AdvReac Type Severity Reaction Status Date / Time No Known Allergies Allergy Unverified 12/18/22 14:19 Home Medications Medication Instructions Recorded Confirmed Type No Known Home Medications 12/18/22 12/18/22 History Patient History Medical History COPD (chronic obstructive pulmonary disease) History of torsades de pointes Tobacco use disorder Atherosclerosis of lower extremity with intermittent claudication "right leg" Hypertension Surgical History S/P tonsillectomy and adenoidectomy History of dental surgery Family History Mother Diabetes Heart disease Social History Smoking Status: Current every day smoker Tobacco Type: Cigarettes Cigarettes Per Day: 10-15/DAY; Second Hand Exposure: No; Do You Dip or Chew Tobacco: No; Tobacco Cessation Education Requested by Patient: No Hx Alcohol Use: Yes Alcohol type: beer Hx Substance Use: Yes Last Used Substance Other:: 20-30 YEARS AGO Preferred Language: Thai Communication Ability: Effective Learning Services Coordinator Required: No Beliefs That Will Affect Care: None Current Living Situation: Alone Other Information That Helps Us Care for You: No Feels Safe at Home: Yes Safety Concerns: Feels Safe At This Time Assistive Devices: Cane Assistive Devices Comment: ONLY USES A CANE OUTSIDE NOT INSIDE Results & Data Vital Signs (Past 12 Hours) Vital Signs Temp Pulse Pulse Resp BP BP Pulse Ox 12/22/22 07:40 36.9 C 90 18 131/85 93 12/22/22 05:58 82 12/22/22 03:00 37.0 C 86 16 147/85 H 91 12/21/22 23:11 36.7 C 99 H 21 157/100 H 91 12/21/22 21:58 94 H O2 Del Method 12/22/22 07:40 Room Air 12/22/22 05:58 12/22/22 03:00 Room Air 12/21/22 23:11 Room Air 12/21/22 21:58
[2022-12-22] MEDS: HEPARIN SOD 5,000 UNIT/0.5 ML VIAL SQ SCH ×2 (09:17→20:11)
[2022-12-22] MEDS: DOCUSATE SODIUM 100 MG CAP PO SCH ×2 (09:17→20:11)
--- NOTE | 2022-12-22 11:09 | Pulmonology Progress Note ---
Date of Service December 22, 2022 Assessment & Plan (1) Lung mass: Plan: Patient appears to have widely metastatic cancer. Status post core needle biopsy of right inguinal mass. I spoke with pathology and the preliminary results do seem to be consistent with malignancy. Awaiting final path results. Appreciate hematology/oncology input. Recommend palliative input as well. Patient with likely mixed history of postobstructive pneumonia and large malignant mass contributing. Can transition to p.o. antibiotic such as levofloxacin for total treatment time of 7 days inclusive of parenteral antibiotics he has received his hospital course. (2) Mass of right inguinal region: Plan: Status post biopsy 12/21/2022. Await pathology. (3) COPD (chronic obstructive pulmonary disease): Plan: No signs of COPD exacerbation at present. Transition to as needed nebs. COPD type: emphysema Emphysema type: unspecified Qualified Code(s): J43.9 - Emphysema, unspecified (4) Sepsis: Plan: Resolved. Plan No further recommendations at this time. Please call with questions. Thank you for the consultation. Admission and Anticipated Discharge Date Admission Date: December 18, 2022 Subjective Patient is status post core needle biopsy of the right inguinal mass 12/21/2022. Denies any bleeding or pain around that site. Denies any shortness of breath. Has essentially been bedbound since his hospitalization. Currently on room air. Endorses occasional cough and sputum production. He had some scant hemoptysis earlier this admission which is since resolved. Denies any chest pain, fevers, chills or night sweats. Review of Systems Review of Systems: All systems reviewed & are unremarkable except as noted in HPI & below Physical Exam Physical Exam: VITAL SIGNS - Vital signs and nursing notes were reviewed. GENERAL - 62-year-old cachectic male appearing his stated age who is in no acute distress. Communicates well with provider and answers questions appropriately. SKIN - Without rashes or lesions. NOSE - Midline and without cyanosis. MOUTH/OROPHARYNX - Without perioral cyanosis. NECK - Neck with FROM. LUNGS - Auscultation reveals diminished breath sounds on the LEFT with slight inspiratory wheezes noted. CARDIAC - RRR with S1/S2. No murmur, rubs, or gallops appreciated. ABDOMEN - Abdominal inspection demonstrates a scaphoid abdomen. BS normoactive all four quadrants. Large nonpulsatile mass noted in the right inguinal region. EXTREMITIES - Nail clubbing not present. No peripheral cyanosis. No pretibial edema present. +3/5 radial palpated throughout. PSYCH - A&Ox3 and cooperates fully with examiner. Pt is very pleasant and interacts well with examiner. Results & Data Results & Data Vital Signs (Past 12 Hours) Vital Signs Temp Pulse Pulse Resp BP BP Pulse Ox 12/22/22 10:21 12/22/22 07:40 36.9 C 90 18 131/85 93 12/22/22 05:58 82 12/22/22 03:00 37.0 C 86 16 147/85 H 91 12/21/22 23:11 36.7 C 99 H 21 157/100 H 91 O2 Del Method 12/22/22 10:21 Room Air 12/22/22 07:40 Room Air 12/22/22 05:58 12/22/22 03:00 Room Air 12/21/22 23:11 Room Air PG Care Time/CCT Total # of Minutes Spent Total Time Spent with Patient: Total time spent is greater than 50% in coordination of care (as documented) at patient's floor/unit and/or counseling patient: Coding Level of Care Code 63441 SUB INP/OBS CARE 2/35MIN Diagnoses Lung mass R91.8 Mass of right inguinal region R19.09 Pulmonary emphysema, unspecified emphysema type J43.9 COPD type: emphysema Emphysema type: unspecified Sepsis A41.9
[2022-12-22] MEDS ORDERED: SODIUM CHLORIDE 0.9% 1,000 ML IV SCH (12:00)
[2022-12-22 13:52] LABS: Ferritin 346.4 ng/ml (8-388)
[2022-12-22 14:40] LABS: Folate (Folic Acid),Ser orPlas 11.93 ng/ml (>5.38)
[2022-12-22] MEDS ORDERED: GADOBUTROL 65ML VIAL IV ONE (17:58)
--- NOTE | 2022-12-22 18:36 | Magnetic Resonance Report ---
Brain MRI WITH AND WITHOUT CONTRAST HISTORY: Malignancy. Assess for intracranial metastatic disease. r/o mets to brain TECHNIQUE: Multiplanar multisequence MRI of the brain was performed both before and after the intrave nous administration of contrast. COMPARISON STUDY: None. FINDINGS: There is no mass, hematoma, midline shift, or acute infarct. The ventricles and sulci demon strate mild age-related involutional changes. Scattered foci of T2 hyperintensity seen within the per iventricular and subcortical white matter are nonspecific but suggestive of mild microvascular ischem ic changes. Prior bilateral lens replacement. Mild mucosal thickening within ethmoid air cells and ma xillary sinuses. Trace left mastoid effusion. There is loss of the normal flow-void within the right intracranial internal carotid artery. There is a 5 mm peripheral enhancing lesion within the right fr ontal lobe on image 17 series 10. There is a 7 mm peripheral enhancing lesion within the right tempor al lobe on image 12 series 10. These likely represent intracranial metastatic disease IMPRESSION: 1. There are 2 peripheral enhancing lesions within the right frontal lobe and right temporal lobe sara sure up to 7 mm. These likely represent intracranial metastatic disease. 2. No acute infarct or intracranial hemorrhage. . 3. Loss of the normal flow-void within the right intracranial internal carotid artery. This suggests chronic occlusion. ACT 112: Negative or not required by law. Electronically signed by: Reinaldo Snyder M.D. 12/22/2022 6:33 PM
[2022-12-23 07:32] LABS: Mean Corpuscular Hemoglobin 28.7 pg (25.0-34.0); Mean Corpuscular Hgb Conc 33.3 g/dL (32.0-36.0); Mean Corpuscular Volume 86.2 fL (80.0-100.0); Mean Platelet Volume 9.4 fL (9.4-12.4); Platelet Count 552 K/uL (130-400); RDW Coefficient of Variation 17.2 % (11.5-14.5); RDW Standard Deviation 53.7 fL (36.4-46.3); Red Blood Count 3.48 M/uL (4.70-6.10); White Blood Count 12.83 K/ul (4.8-10.8)
[2022-12-23] MEDS: DOCUSATE SODIUM 100 MG CAP PO SCH ×2 (08:22→20:11)
[2022-12-23] MEDS: HEPARIN SOD 5,000 UNIT/0.5 ML VIAL SQ SCH ×2 (08:23→20:14)
[2022-12-23 08:24] LABS: Calcium 8.6 mg/dl (8.6-10.3)
[2022-12-23 08:30] LABS: BUN Creatinine Ratio 15.6 (10-20); Creatinine Clr Calc Pharmacy 106.9 ml/min; Est GFR (African American) 139.6 ml/min; Est GFR (Non-African American) 120.4 ml/min
--- NOTE | 2022-12-23 08:30 | Hematology/Oncology Prog Note ---
Date of Service December 23, 2022 Assessment & Plan (1) Small cell lung cancer: Plan I had an extensive discussion today with patient regarding pathology results as well as brain MRI. Pathology suggestive of small cell lung cancer. Brain MRI showed at least 2 brain lesions suspicious for metastasis. Previously obtained CT abdomen and pelvis showed liver metastasis. Based imaging, he has extensive stage disease for which goal of treatment will be to prolong life and improve symptoms. Ideally would like to treat with chemoimmunotherapy, comprising of carboplatin, etoposide and atezolizumab given IV every 3 weeks for total of 4 cycles followed by maintenance atezolizumab. Given borderline performance status, also discussed option of supportive care/hospice in the setting of aggressive small cell lung cancer. Following our discussion, he indicated that he would like to think about these options and discuss with his family before making a decision. If he decides to go ahead with systemic therapy, plan to give cycle 1 of treatment with carboplatin/etoposide inpatient. If he decides to receive systemic therapy, he will also need radiation oncology evaluation for palliative radiation to brain lesions. In the meantime, recommend palliative care evaluation to discuss goals of care. Admission and Anticipated Discharge Date Admission Date: December 18, 2022 Subjective Final pathology consistent with small cell carcinoma of the lung. He noticed a lump around his right nipple yesterday which measures about 2 x 2 cm Results & Data Vital Signs (Past 12 Hours) Vital Signs Temp Pulse Pulse Resp BP Pulse Ox O2 Del Method 12/23/22 07:39 36.5 C 86 20 163/84 H 92 Room Air 12/23/22 07:38 83 12/23/22 03:00 36.8 C 81 18 148/85 H 92 Room Air 12/22/22 23:10 87 12/22/22 23:00 37.0 C 86 16 149/78 H 92 Room Air
[2022-12-23] MEDS: levoFLOXacin 750 MG TAB PO SCH (11:54)
--- NOTE | 2022-12-23 13:21 | Hospitalist Progress Note ---
Date of Service December 23, 2022 Assessment & Plan (1) Sepsis: Plan: possibly 2/2 pna. resuscitated, cont broad spectrum abx at this time. (2) Postobstructive pneumonia: (3) Lung mass: Plan: This is a 62 y/o male with moderate COPD, history tobacco abuse, HTN, hx torsades de pointes due to electrolyte imbalance, and RLE atherosclerosis and claudication who presents to the ED from outpatient pulmonology with tachycardia and borderline hypoxia. He has a known left hilar mass, which was enlarging on most recent outpatient CT. He followed up with pulmonology today who noted he has been progressively worsening overall and referred him to the ED for evaluation and possible admission. In the ED, he was placed on 2L of O2 and given IVF as well as empiric Zosyn, ultimately admitted on 12/18 for concerns of post obstructive pneumonia . OP biopsy of mass was anticipated; however, patient underwent FNA of lymphnode in right inguinal area on 12/21. Pathology results consistent with metastatic small cell carcinoma. - Admit to PCU -Completed 7 day course with zosyn/doxy - Duonebs QID and prn - Incentive spirometry, flutter valve - Consult pulmonology, will appreciate additional recommendations - Fall precautions, aspiration precautions - Continue O2 titrated as needed to maintain sats - Met sepsis criteria with initial tachycardia, tachypnea, leukocytosis and pulmonary source of infection so will check lactate and procalcitonin. Blood cultures already drawn and negative to date. 12/20 improved today but still with dyspnea on exertion. multiple sites of mets on CT scans. plan for inguinal LN bx in am with IR for tissue dx, then will engage with oncology for treatment options. Jojo AC for cough and to help him get some sleep which he didn't get much of last night. 12/21: Ashlisin AC helpful-redosed. Inguinal LN biopsy for tissue. As patient is not well enough to leave the hospital and this cancer is progressing rapidly, will ask Oncology to see him and start a discussion about treatment options. 12/22: seen by oncology, brain MRI ordered for further staging. Will need repeat chest CT closer to starting treatment. Path still pending, onc continues to follow. 12/23: MRI with lesions c/w metastatic disease, pathology +small cell carcinoma; heme onc following with possible inpatient treatment (4) Abnormal chest CT: Plan: MARTHA collapse, possible postobstructive pneumonia. leukocytosis and reactive thormbocytosis improved; no improvement in CXR findings with 7 day of abx (5) Mass of right inguinal region: Plan: May be metastatic disease to LN vs. abscess - pt reports increasing size and discomfort - CT abd/pel for further evaluation - Pt already on broad-spectrum antibiotics to cover for infection - IR bx (12/21) with pathology suggestive of metastatic small cell carcinoma (6) COPD (chronic obstructive pulmonary disease): Plan: chronic, stable. no wheezing or hypoxia present. duonebs PRN (7) Anemia: Plan: decreased, but stable and patient without bleeding. Likely related to new metastatic process. (8) Mycobacterium avium complex: Plan: noted per records (9) Tobacco use disorder: Plan: ongoing smoker, declines nicoderm patch (10) Malnutrition: Plan: likely related to cancer, pending biopsy. Regular diet and nutrition consult. Encourage intake as tolerated DVT proph: heparin Full Code Dispo-cont PCU I spent a total [id number] coordinating, documenting, and providing care for this patient excluding time spent in the performance of separately billed services Admission and Anticipated Discharge Date Admission Date: December 18, 2022 Subjective Reports new mass on right nipple that is painless, but appeared over the course of 24 hours, no other lesions noted. Reports inguinal mass on right is stable Denies any neuro symptoms; reports right vision blurry 2/2 retinal detachment he never underwent surgery for Review of Systems Review of Systems: All systems reviewed & are unremarkable except as noted in Subjective Physical Exam Physical Exam: thin, cachectic gentleman Respiratory: normal respiratory effort, lungs clear to auscultation Cardiovascular: tachycardia Chest (Breasts): Additional Comments: firm nodule ~3cm on right nipple/lateral,nontender Results & Data Results & Data Vital Signs (Past 12 Hours) Vital Signs Temp Pulse Pulse Resp BP Pulse Ox O2 Del Method 12/23/22 11:38 36.9 C 102 H 18 135/87 95 Room Air 12/23/22 07:39 36.5 C 86 20 163/84 H 92 Room Air 12/23/22 07:38 83 12/23/22 07:12 Room Air 12/23/22 03:00 36.8 C 81 18 148/85 H 92 Room Air Laboratory Results Short CBC 12/23/22 Range/Units 07:18 WBC 12.83 H (4.8-10.8) K/ul Hgb 10.0 L (14.0-18.0) g/dl Hct 30.0 L (42.0-52.0) % Plt Count 552 H (130-400) K/uL BMP 12/23/22 07:18 Sodium 132 L Potassium 4.0 Chloride 97 L Carbon Dioxide 30 BUN 7 Creatinine 0.45 L Glucose 84 Calcium 8.6 Medications Administered Home Medications Medication Instructions Recorded Confirmed Last Taken No Known Home Medications 12/18/22 12/18/22 Unknown Active Medications Generic Name Dose Route Start Last Admin Trade Name Freq PRN Reason Stop Dose Admin Acetaminophen 650 mg 12/18/22 16:07 12/20/22 05:18 Acetaminophen 325 Mg Tab PO 01/17/23 16:06 650 mg Q4H PRN Administration Pain or Fever Diphenhydramine HCl 25 mg 12/18/22 16:52 12/20/22 01:45 EST Diphenhydramine Capsule 25 Mg Cap PO 01/17/23 16:59 25 mg Q6H PRN Administration Itching Docusate Sodium 100 mg 12/18/22 21:00 12/23/22 08:22 Docusate Sodium 100 Mg Cap PO 01/17/23 20:59 100 mg BID EMMA Administration Guaifenesin/Codeine Phosphate 10 ml 12/20/22 17:15 12/23/22 12:15 Guaifenesin/Codeine 200mg/20mg 10ml Udc PO 01/19/23 17:14 10 ml Q6H PRN Administration Cough Heparin Sodium (Porcine) 5,000 units 12/18/22 21:00 12/23/22 08:23 Heparin Sod 5,000 Unit/0.5 Ml Vial SQ 01/17/23 20:59 5,000 units Q12 EMMA Administration Levofloxacin 750 mg 12/23/22 11:00 12/23/22 11:54 Levofloxacin 750 Mg Tab PO 12/25/22 11:01 750 mg DAILY@1100 EMMA Administration Protocol (6) COPD (chronic obstructive pulmonary disease) COPD type: emphysema Emphysema type: unspecified Qualified Code(s): J43.9 - Emphysema, unspecified (10) Malnutrition Malnutrition type: protein-calorie malnutrition Protein-calorie malnutrition severity: severe Qualified Code(s): E43 - Unspecified severe protein-calorie malnutrition
--- NOTE | 2022-12-23 13:46 | Communication Note ---
Date of Service: December 23, 2022 Brief Pall Med Note Consult noted/appreciated After speaking with onc, pt/family elected dc to SNF with comfort care/hospice. NO acute pall med consult is needed at this time; pt and family are amenable to trial of rehab at SNF then moving to comfort, but overall focus is comfort care and no escalation. I have updated Dr Fisher. No acute IP pall med consult is needed. CM to assist with dispo planning and if pt/family desire more details about hospice, their agency of choice can accommodate them by coming in to meet with pt/family while he is here for more directed discussion. Chart reviewed but pt not seen Discussed case with onc and hospitalist providers. NO Charge submitted. Thank you for allowing us to participate in the ongoing care of this patient. Please don't hesitate to call or page with any additional concerns. Dr. Gaby Irwin DNP Director, Palliative Care
[2022-12-24 07:22] LABS: Hematocrit (blood only) 29.4 % (42.0-52.0); Hemoglobin 9.7 g/dl (14.0-18.0); Mean Corpuscular Hemoglobin 28.7 pg (25.0-34.0); Mean Platelet Volume 9.7 fL (9.4-12.4); Platelet Count 580 K/uL (130-400); RDW Coefficient of Variation 17.1 % (11.5-14.5); RDW Standard Deviation 54.1 fL (36.4-46.3); Red Blood Count 3.38 M/uL (4.70-6.10); White Blood Count 13.31 K/ul (4.8-10.8)
[2022-12-24 07:45] LABS: BUN Creatinine Ratio 13.7 (10-20); Calcium 8.8 mg/dl (8.6-10.3); Creatinine Clr Calc Pharmacy 90.4 ml/min; Est GFR (African American) 132.6 ml/min; Est GFR (Non-African American) 114.4 ml/min; Magnesium 1.7 mg/dl (1.7-2.4); Phosphorus 3.4 mg/dl (2.5-4.9); Potassium 3.6 mmol/L (3.5-5.1)
[2022-12-24] MEDS: DOCUSATE SODIUM 100 MG CAP PO SCH ×2 (08:15→21:44)
[2022-12-24] MEDS: HEPARIN SOD 5,000 UNIT/0.5 ML VIAL SQ SCH ×2 (08:15→21:43)
[2022-12-24] MEDS: levoFLOXacin 750 MG TAB PO SCH (10:20)
[2022-12-24] MEDS ORDERED: OPTIRAY 320 100ml IV ONE (14:08)
--- NOTE | 2022-12-24 16:01 | Hematology/Oncology Prog Note ---
Date of Service December 24, 2022 Assessment & Plan (1) Small cell lung cancer: Plan -Patient with recently diagnosed metastatic small cell lung cancer. He has decided to receive palliative chemoimmunotherapy treatment. -Plan to start chemoimmunotherapy treatment outpatient next week with carboplatin, etoposide and atezolizumab. If he remains inpatient next week Wednesday, will administer chemotherapy inpatient with carboplatin day 1/etoposide day 1-3. -He will need outpatient evaluation by radiation oncology to discuss treatment to brain lesions Admission and Anticipated Discharge Date Admission Date: December 18, 2022 Subjective Indicates that he would like to receive palliative chemoimmunotherapy treatment Results & Data Vital Signs (Past 12 Hours) Vital Signs Temp Pulse Pulse Resp BP Pulse Ox O2 Del Method 12/24/22 14:47 36.9 C 104 H 18 144/92 H 94 Room Air 12/24/22 11:57 37.5 C 108 H 18 156/86 H 94 Room Air 12/24/22 07:09 36.9 C 94 H 18 145/93 H 93 Room Air 12/24/22 07:00 97 H
--- NOTE | 2022-12-24 16:32 | CT Scan Report ---
CHEST CT WITH CONTRAST CT DOSE: 378.99 mGy.cm HISTORY: Follow-up study in a patient with history of lung cancer. lung cancer TECHNIQUE: Multiaxial CT images of the chest were performed following the IV administration of Optira y. A dose lowering technique was utilized adhering to the principles of ALARA. COMPARISON: Chest radiograph 12/22/2022, CT abdomen and pelvis 12/18/2022, chest CT 11/19/2022 from out side facility. FINDINGS: Unremarkable thyroid. The heart is upper limits of normal in size. Trace pericardial effusi on. Moderate coronary artery calcifications. Atherosclerosis of the thoracic aorta without aneurysm. No pulmonary emboli identified on this exam. Compensatory hyperinflation of the right lung. Mild to moderate pulmonary emphysema with bronchial wa ll thickening suggestive of bronchitis. Stable irregular 8 mm right apical nodule, image 29 series 4. Spiculated 7 mm solid nodule of the right upper lobe on image 88 abutting an adjacent bronchus is al so unchanged. Moderate size left pleural effusion is new from 11/19/2022 and has increased in size from 12/18/2022. L arge heterogeneously enhancing left hilar mass measuring 8.5 x 7.4 cm on image 118, previously measur ed 7.5 x 7.0 cm on the 11/19/2022 exam. Again noted is encasement with narrowing of the adjacent left pulmonary artery and pulmonary veins with mediastinal involvement. Additional heterogeneously enhanci ng mediastinal mass prevascular tissues on image 90 measures 5.8 x 4.0 cm, previously 4.0 x 2.8 cm. A dditional enhancing soft tissue lesions within the left superior mediastinum have also progressed. Co mplete collapse of the left upper lobe with consolidation and partial collapse of the left lower lobe . There is progressive opacification/effacement of the left lung bronchi with tumor involvement and s ecretions. Soft tissue attenuating mass anterior to the left kidney on image 260 measuring 3 cm again noted. Ext ensive hepatic metastasis. Subacute to chronic nondisplaced anterior right-sided rib fractures are ag ain noted. Heterogeneous appearance of the marrow within the cervical spine. IMPRESSION: 1. Progressively worsened disease within the chest as described above compared to the study from 11/19. There is progressive volume loss and collapse of the left lung with tumor involvement within t he left lung bronchi. Encasement of the left lung pulmonary vessels again noted. 2. Upper abdominal metastatic disease is stable compared to the 12/18/2022 exam. 3. Moderate sized left pleural effusion has increased from prior. 4. Emphysema. 5. There are two unchanged solid subcentimeter nodules present within the right upper lobe. 6. Additional findings as above. ACT 112: Negative or not required by law. Dictated: 12/24/2022 2:26 PM Transcribed: 12/24/2022 3:04 PM Garo [id number] FAISAL_Shivam [id number] Electronically signed by: Trever Ellis M.D. 12/24/2022 4:31 PM
--- NOTE | 2022-12-24 16:33 | Hospitalist Progress Note ---
Date of Service December 24, 2022 Assessment & Plan (1) Sepsis: (2) Postobstructive pneumonia: (3) Lung mass: (4) Abnormal chest CT: (5) Mass of right inguinal region: (6) COPD (chronic obstructive pulmonary disease): (7) Anemia: (8) Mycobacterium avium complex: (9) Tobacco use disorder: (10) Malnutrition: Plan: This is a 62 y/o male with moderate COPD, history tobacco abuse, HTN, hx torsades de pointes due to electrolyte imbalance, and RLE atherosclerosis and claudication who presents to the ED from outpatient pulmonology with tachycardia and borderline hypoxia. He has a known left hilar mass, which was enlarging on most recent outpatient CT. He followed up with pulmonology today who noted he has been progressively worsening overall and referred him to the ED for evaluation and possible admission. In the ED, he was placed on 2L of O2 and g iven IVF as well as empiric Zosyn, ultimately admitted on 12/18 for concerns of post obstructive pneumonia . OP biopsy of mass was anticipated; however, patient underwent FNA of lymphnode in right inguinal area on 12/21. Pathology results consistent with metastatic small cell carcinoma. #Sepsis likely related to Postobstructive pneumonia *improved #Small cell carcinoma, metastatic #MARTHA collapse, possible postobstructive pneumonia. -Completing course of PO abx with Levaquin - Duonebs QID and prn - Incentive spirometry, flutter valve - Consult pulmonology: no interventions at this time - Fall precautions, aspiration precautions - Continue O2 titrated as needed to maintain sats 12/23: MRI with lesions c/w metastatic disease, pathology +small cell carcinoma from right inguinal biopsy, new nodule on chest -Onc: planning for possible discharge with home health nursing and OP chemotherapy regimen -Repeat CT Chest with contrast #COPD (chronic obstructive pulmonary disease): chronic, stable. no wheezing or hypoxia present. duonebs PRN #Chronic Normocytic Anemia: decreased, but stable and patient without bleeding. B12, Folate WNL, labs suggestive of chronic disease #Mycobacterium avium complex: noted per records #Tobacco use disorder: ongoing smoker, declines nicoderm patch encouraged cessation #Malnutrition: likely related to cancer, pending biopsy. Regular diet and nutrition consult. Encourage intake as tolerated DVT proph: heparin Full Code Dispo-cont PCU Admission and Anticipated Discharge Date Admission Date: December 18, 2022 Subjective NAEO Review of Systems Review of Systems: All systems reviewed & are unremarkable except as noted in Subjective Physical Exam Physical Exam: thin, cachectic gentleman Respiratory: normal respiratory effort, lungs clear to auscultation Cardiovascular: tachycardic Results & Data Results & Data Vital Signs (Past 12 Hours) Vital Signs Temp Pulse Pulse Resp BP Pulse Ox O2 Del Method 12/24/22 14:47 36.9 C 104 H 18 144/92 H 94 Room Air 12/24/22 11:57 37.5 C 108 H 18 156/86 H 94 Room Air 12/24/22 07:09 36.9 C 94 H 18 145/93 H 93 Room Air 12/24/22 07:00 97 H Laboratory Results Short CBC 12/24/22 Range/Units 06:32 WBC 13.31 H (4.8-10.8) K/ul Hgb 9.7 L (14.0-18.0) g/dl Hct 29.4 L (42.0-52.0) % Plt Count 580 H (130-400) K/uL BMP 12/24/22 06:32 Sodium 131 L Potassium 3.6 Chloride 94 L Carbon Dioxide 31 BUN 7 Creatinine 0.51 L Glucose 71 Calcium 8.8 Medications Administered Home Medications Medication Instructions Recorded Confirmed Last Taken No Known Home Medications 12/18/22 12/18/22 Unknown Active Medications Generic Name Dose Route Start Last Admin Trade Name Freq PRN Reason Stop Dose Admin Acetaminophen 650 mg 12/18/22 16:07 12/20/22 05:18 Acetaminophen 325 Mg Tab PO 01/17/23 16:06 650 mg Q4H PRN Administration Pain or Fever Diphenhydramine HCl 25 mg 12/18/22 16:52 12/20/22 01:45 EST Diphenhydramine Capsule 25 Mg Cap PO 01/17/23 16:59 25 mg Q6H PRN Administration Itching Docusate Sodium 100 mg 12/18/22 21:00 12/24/22 08:15 Docusate Sodium 100 Mg Cap PO 01/17/23 20:59 100 mg BID EMMA Administration Guaifenesin/Codeine Phosphate 10 ml 12/20/22 17:15 12/24/22 10:19 Guaifenesin/Codeine 200mg/20mg 10ml Udc PO 01/19/23 17:14 10 ml Q6H PRN Administration Cough Heparin Sodium (Porcine) 5,000 units 12/18/22 21:00 12/24/22 08:15 Heparin Sod 5,000 Unit/0.5 Ml Vial SQ 01/17/23 20:59 5,000 units Q12 EMMA Administration Levofloxacin 750 mg 12/23/22 11:00 12/24/22 10:20 Levofloxacin 750 Mg Tab PO 12/25/22 11:01 750 mg DAILY@1100 EMMA Administration Protocol (6) COPD (chronic obstructive pulmonary disease) COPD type: emphysema Emphysema type: unspecified Qualified Code(s): J43.9 - Emphysema, unspecified (10) Malnutrition Malnutrition type: protein-calorie malnutrition Protein-calorie malnutrition severity: severe Qualified Code(s): E43 - Unspecified severe protein-calorie malnutrition
[2022-12-25 07:29] LABS: Hematocrit (blood only) 32.6 % (42.0-52.0); Hemoglobin 10.9 g/dl (14.0-18.0); Mean Corpuscular Hemoglobin 28.7 pg (25.0-34.0); Mean Corpuscular Hgb Conc 33.4 g/dL (32.0-36.0); Mean Corpuscular Volume 85.8 fL (80.0-100.0); Mean Platelet Volume 9.5 fL (9.4-12.4); Platelet Count 659 K/uL (130-400); RDW Standard Deviation 53.2 fL (36.4-46.3); White Blood Count 14.81 K/ul (4.8-10.8)
[2022-12-25 07:41] LABS: Calcium 9.2 mg/dl (8.6-10.3); Creatinine Clr Calc Pharmacy 97.6 ml/min; Est GFR (African American) 137.1 ml/min; Est GFR (Non-African American) 118.3 ml/min; Magnesium 1.7 mg/dl (1.7-2.4); Phosphorus 3.5 mg/dl (2.5-4.9); Potassium 4.3 mmol/L (3.5-5.1)
[2022-12-25] MEDS: DOCUSATE SODIUM 100 MG CAP PO SCH (08:21)
[2022-12-25] MEDS: HEPARIN SOD 5,000 UNIT/0.5 ML VIAL SQ SCH (08:21)
[2022-12-25] MEDS: levoFLOXacin 750 MG TAB PO SCH (12:16)
--- NOTE | 2022-12-25 16:52 | Discharge Summary ---
Discharge Summary Date of Service December 25, 2022 Notes For Next Care Provider Medication Changes From Visit Jojo prn Admission HPI Per Admitting Provider This is a 62 y/o male with moderate COPD, history tobaccoa abuse, HTN, hx torades de pointes due to electrolyte imbalance, and RLE atherosclerosis and claudication who presents to the ED from outpatient pulmonology with tachycardia and borderline hypoxia. Pt was admitted to [facility] 10/11-10/17/22 with sepsis, severe COVID-pneumonia with hypoxia, and possible post-obstructive MARTHA pneumonia. Pt signed out AMA on 10/17/22 before possible rehab placement could be completed. He followed up with PCP on 11/12 but didn't follow up with pulmonology until today. Outpatient CT on 11/19 showed increasing size of left hilar mass with persistent mass effect and persistent collapse of the MARTHA, as well as diffusely increased metastatic disease to the liver. Sent over from pulmonology today due to tachycardia, borderline hypoxia and generalized weakness. Pt reports worsening issues with JORGENSEN - walking more than short distances or lifting anything causes significant dyspnea that can take up to 30 minutes of rest to resolve. +whe ezing, +productive cough (clear to white sputum) but no hemoptysis. Denies fevers, chills, sweats. +fatigue and weakness. Appetite has improved since last admission - eating soft foods. Denies N/V/D. Notes an enlarging tender area in his right groin but no drainage from it. He had an old albuterol inhaler at home, which he has been using when symptoms are especially severe and this does help transiently with symptoms. Admission Exam Per Admitting Provider General: cachectic, NAD, oriented x 3 Eyes: no scleral icterus Mouth: slightly dry oral mucosa Heart: regular rhythm but tachycardiac Lungs: diminished BS on left, faint expiratory wheezes throughout Abdomen: soft, +BS, tender right inguinal mass with overlying erythema but no drainage Skin: no jaundice Neuro: moves all extremities, no confusion Pulses: radial pulses 2+ and equal Extremities: no pedal edema Principal Dx & Hospital Course #1 = Principal Diagnosis (1) Sepsis: (2) Postobstructive pneumonia: (3) Lung mass: (4) Abnormal chest CT: (5) Mass of right inguinal region: (6) COPD (chronic obstructive pulmonary disease): (7) Anemia: (8) Mycobacterium avium complex: (9) Tobacco use disorder: (10) Malnutrition: This is a 62 y/o male with moderate COPD, history tobacco abuse, HTN, hx torsades de pointes due to electrolyte imbalance, and RLE atherosclerosis and claudication who presents to the ED from outpatient pulmonology with tachycardia and borderline hypoxia. He has a known left hilar mass, which was enlarging on most recent outpatient CT. He followed up with pulmonology today who noted he has been progressively worsening overall and referred him to the ED for evaluation and possible admission. In the ED, he was placed on 2L of O2 and given IVF as well as empiric Zosyn, ultimately admitted on 12/18 for concerns of post obstructive pneumonia . OP biopsy of mass was anticipated; however, patient underwent FNA of lymph node in right inguinal area on 12/21. Pathology results consistent with metastatic small cell carcinoma. It was decided to discharge patient with plan for home health and OP chemotherapy to start in the coming week. A prescription for shower chair, roller walker, and pull ups were given #Sepsis likely related to Postobstructive pneumonia *improved #Small cell carcinoma, metastatic #MARTHA collapse, possible postobstructive pneumonia. #Left Pleural Effusion -Completed course of PO abx with Levaquin - Incentive spirometry, flutter valve - Consult pulmonology: no interventions at this time 12/23: MRI with lesions c/w metastatic disease, pathology +small cell carcinoma from right inguinal biopsy, new nodule on chest -Onc: discharge with home health nursing and OP chemotherapy regimen -2 step: no oxygen requirement at this time #COPD (chronic obstructive pulmonary disease): chronic, stable. no wheezing or hypoxia present. Discharge with albuterol prn #Chronic Normocytic Anemia: decreased, but stable and patient without bleeding. B12, Folate WNL, labs suggestive of chronic disease #Mycobacterium avium complex: noted per records #Tobacco use disorder: ongoing smoker, declines nicoderm patch encouraged cessation #Malnutrition: Encouraged Boost and high calorie beverages as able On day of discharge, patient ambulating with assistive device and independent, denied any new concerns and eager to discharge home. Discharge Exam Constitutional cachetic Respiratory decreaused LLL breath sounds, clear breath sounds right air brar Cardiovascular tachy, regular Updated Medication List Medication Instructions Recorded Confirmed Type albuterol sulfate 90 mcg/actuation 1 inh inhalation Q6H PRN shortness 12/25/22 Rx aerosol inhaler of breath or wheezing #8.5 grams codeine 10 mg-guaifenesin 100 mg/5 10 ml PO Q6H PRN cough 14 days 12/25/22 Rx mL oral liquid #250 mL Hospital Stay Data Consultations 12/18/22 14:12 ED Decision to Admit Stat 12/18/22 16:07 Consult Pulmonology Routine 12/18/22 18:18 Consult General Surgery Routine 12/21/22 19:54 Consult Oncology Routine Diagnostic Imagining Performed 12/18/22 15:32 CT abd pelvis IV con only Routine 12/18/22 16:49 CT lumbar spine w con Routine 12/21/22 IR biopsy lymph US Routine 12/22/22 17:00 MR brain wo/w con Routine 12/24/22 12:20 CT chest diagnostic w con Routine Pending Results Patient Have Any Pending Studies at Discharge: No Discharge Instructions Given to Patient (Per Discharging Provider) You were admitted for concerns low oxygen levels and found to have metastatic small cell lung cancer. After discussion with the Oncology team. it has been decided to pursue palliative chemoimmunotherapy treatment. The plan is to start chemoimmunotherapy treatment outpatient next week. You will follow up with radiation oncology to discuss treatment to brain lesions discovered on your imaging. Home Health Attestation I certify that this patient is under my care and that I, or a physicians customer service assistant working with me, had a face to-face encounter that meets the home health tkov-au-pleh encounter requirements with this patient. The encounter with the patient was in whole, or in part, for the following medical condition, which is the primary reason for home health care (list medical condition): Sepsis I certify that, based on my findings, the following services are medically necessary home health services: My clinical findings support the need for the above services because: PT Assessment for Endurance / Balance / Strength PT Eval for Safety and Mobility PT Eval for Safety, Gait Training, Assistive Devices PT Gait and Balance Training, Strengthening and Safety Skilled Nsg Assessment Further, I certify that my clinical findings support that this patient is homebound (i.e. absences from home require considerable and taxing effort and are for medical reasons or temple services or infrequently or of short duration when for other reasons) because: Supportive Aid - Walker Certification for Home Health Services: Based on the above findings, I certify that this patient is confined to the home and needs intermittent shelter care, physical therapy and/or speech therapy or continues to need occupational therapy. The patient is under my care, and I have initiated the establishment of the plan of care. This patient will be followed by a physician who will periodically review the plan of care. Total Time Total Time Spent Total Time Spent (In Minutes): 65
== END 2022-12-25 17:06 | disposition home health service (06) | DRG 853 ==
LOC: ED 11:44 → SUATTDRO 14:32 → 2S 14:32

== ENCOUNTER 2023-01-11 09:49 | Inpatient (IN) ==
[2023-01-11 10:47] LABS: Hematocrit (blood only) 33.4 % (42.0-52.0); Hemoglobin 11.2 g/dl (14.0-18.0); Mean Corpuscular Hemoglobin 28.6 pg (25.0-34.0); Mean Corpuscular Hgb Conc 33.5 g/dL (32.0-36.0); Mean Corpuscular Volume 85.2 fL (80.0-100.0); Mean Platelet Volume 9.7 fL (9.4-12.4); Platelet Count 421 K/uL (130-400); RDW Coefficient of Variation 17.5 % (11.5-14.5); RDW Standard Deviation 53.7 fL (36.4-46.3); Red Blood Count 3.92 M/uL (4.70-6.10); White Blood Count 6.48 K/ul (4.8-10.8)
[2023-01-11 11:02] LABS: Albumin Level 3.4 gm/dl (3.4-5.0); Anion Gap 7 (3-11); Bilirubin,Total 0.3 mg/dl (0.2-1.0); Calcium 9.8 mg/dl (8.6-10.3); Carbon Dioxide 33 mmol/L (21-32); Chloride 92 mmol/L (98-107); Potassium 4.6 mmol/L (3.5-5.1); Sodium 132 mmol/L (136-145)
--- NOTE | 2023-01-11 11:03 | XRay Report ---
XR chest 1V not portable CLINICAL HISTORY: Chest pain, nonspecific. Lung cancer. COMPARISON STUDY: Chest radiograph December 22, 2022. Chest CT December 24, 2022. FINDINGS: There is a small left pleural effusion. There is a possible small medial left apical pneumo thorax. Left lung aeration has significantly improved since prior chest radiograph and chest CT. Left perihilar masslike opacity is again noted. This has improved. A few nodular right midlung opacities are present. There is no right pneumothorax. There is no evidence for pulmonary edema. Cardiac size i s normal. IMPRESSION: 1. Small left pleural effusion. Possible small medial left apical pneumothorax. This is likely artifa ctual however short-term radiographic follow-up is recommended. 2. Redemonstration of left perihilar mass/adenopathy. Interval improvement in left lung aeration. ACT 112: Negative or not required by law. Electronically signed by: Hung Bautista M.D. 01/11/2023 11:01 AM
[2023-01-11 11:08] LABS: Alanine Aminotransferase 11 U/L (7-52); Albumin Globulin Ratio 0.9 (0.9-2); Alkaline Phosphatase 150 U/L (34-104); Aspartate Aminotransferase 30 U/L (13-39); BUN Creatinine Ratio 23.1 (10-20); Blood Urea Nitrogen 9 mg/dl (6-23); Est GFR (Non-African American) 127.7 ml/min; Globulin 3.8 gm/dl (2.5-4.0); Glucose 91 mg/dl (70-99(Fasting)); Total Protein 7.2 gm/dl (6.0-8.3)
[2023-01-11 11:12] LABS: Basophils # (auto) 0.09 K/uL (0.00-0.20); Basophils % (auto) 1.4 %; Eosinophils # (auto) 0.01 K/uL (0.00-0.50); Eosinophils % (auto) 0.2 %; Immature Granulocytes # (auto) 0.39 K/uL (0.01-0.20); Lymphocytes # (auto) 0.47 K/uL (1.20-3.40); Lymphocytes % (auto) 7.3 %; Monocytes # (auto) 0.09 K/uL (0.11-0.59); Monocytes % (auto) 1.4 %; Neutrophils # (auto) 5.43 K/uL (1.40-6.50); Neutrophils % (auto) 83.7 %; Polychromasia 1+; Troponin I High Sensitivity 4.8 pg/ml (0-20)
[2023-01-11] MEDS ORDERED: MoRPHine SULFATE 4 MG/ML 1 ML CARP\\VIAL IV STA (11:22)
[2023-01-11] MEDS ORDERED: ALBUT/IPRATROP 3MG/0.5MG NEB 3 ML VIAL NEB ONE (11:22)
--- NOTE | 2023-01-11 11:26 | Emergency Department Note ---
Impression & Plan COPD exacerbation, Chest pain ED Provider Note NAME: JOSELITO YUAN AGE: 62 SEX: M : 1960 ARRIVES VIA: Walk-In INFORMANT: Patient ED PROVIDER(S): Manjit Garza DO CHIEF COMPLAINT: chest pain and shortness of breath HPI: Patient is a 62-year-old male who presents to the ER for left-sided chest pain and shortness of breath with a past medical history of COPD, Mycobacterium, lung cancer receiving chemo. He denies any headache or change in vision. No belly pain, nausea vomiting or diarrhea. No dysuria, urgency, or frequency. No other exacerbating or remitting factors. ADDITIONAL HISTORY OBTAINED: Per HPI Chronic Medical/Social Conditions Affecting Care: Per HPI PAST MEDICAL HISTORY:See Below PAST SURGICAL HISTORY:See Below FAMILY HISTORY:See Below SOCIAL HISTORY:See Below HOME MEDICATIONS:See Below ALLERGIES:See Below VITALS:See Below PHYSICAL EXAMINATION: GENERAL: Sitting up in bed, alert, ill-appearing, disheveled, dyspneic with conversation EYE EXAM: normal conjunctiva. OROPHARYNX: no exudate, no erythema, lips, buccal mucosa, and tongue normal and mucous membranes are moist NECK: supple, no nuchal rigidity, no adenopathy, non-tender LUNGS: Clear to auscultation. Normal chest wall mechanics HEART: Tachycardic, S1 normal and S2 normal CHEST: Reproducible left anterior chest wall pain ABDOMEN: abdomen soft, non-tender, normo-active bowel sounds, no masses, no rebound or guarding. BACK: Back is symmetrical on inspection and there is no deformity, no midline tenderness, no CVA tenderness. SKIN: no rashes and no bruising UPPER EXTREMITIES: upper extremities are grossly normal. LOWER EXTREMITIES: No pitting edema. Calves are equal bilaterally NEURO EXAM: Normal sensorium, cranial nerves II-XII grossly intact, normal speech, no gross weakness of arms, no gross weakness of legs. MEDICAL DECISION MAKING: Patient is a 62-year-old male who presents ER for above-stated complaint. IV was established blood work was obtained. Patient was fairly dyspneic with conversation. He was given an hour-long neb treatment as well as steroids. Labs show no significant leukocytosis or anemia. BMP along with LFTs bilirubin was unremarkable. Pro-Naif was normal. Viral panel was negative. Chest x-ray shows multifocal infiltrates was consistent with previous. CT of the chest was obtained as the chest x-ray suggested a potential small pneumothorax. This showed emphysema with questionable aspiration but resolved after admission. Patient was already given steroids, neb treatments and was improved. He was updated bedside. Discussed with the hospitalist for further evaluation management treatment. External Records Reviewed: Recent admission to Dr. Melyssa Moreland for sepsis Consults/Care Managements Discussions: Per [facility] Triage Nursing notes reviewed. Limited review of prior medical records performed Vital Signs: reviewed and remarkable for tachy Differential diagnosis: Differential diagnoses includes but is not limited to pneumonia, bronchitis, COPD/Asthma exacerbation, pneumothorax, pulmonary embolism, congestive heart failure, acute coronary syndrome ER treatment provided: See below Diagnostics interpreted by me include EKG and cardiac monitoring as listed below: -Cardiac Monitoring: An order was placed for continuous cardiac monitoring. The monitor shows a rate of 110 with sinus rhythm. -ECG: Sinus tachycardia rate of 113 Normal axis No PVCs T wave inversions in septal leads QTc 436 -Laboratory studies:Interpreted by me as stated above in MDM and shown below. Imaging studies: Xrays: As interpreted by me: Portable AP upright 1 view of the chest shows no focal infiltrate CTs show: CT of the chest and abdomen pelvis as described above shows questionable aspiration with debris in the trachea Procedures:none Critical Care: None Past Med/Surg History Medical History COPD (chronic obstructive pulmonary disease) History of torsades de pointes Tobacco use disorder Atherosclerosis of lower extremity with intermittent claudication "right leg" Hypertension Surgical History S/P tonsillectomy and adenoidectomy History of dental surgery Family History Mother Diabetes Heart disease Social History Smoking Status: Current every day smoker Tobacco Type: Cigarettes Cigarettes Per Day: 10-15/DAY; Second Hand Exposure: No; Do You Dip or Chew Tobacco: No; Hx Alcohol Use: Yes Alcohol type: beer Hx Substance Use: Yes Last Used Substance Other:: 20-30 YEARS AGO Preferred Language: Nigerian Communication Ability: Effective Parts Washer Required: No Beliefs That Will Affect Care: None Current Living Situation: Alone Feels Safe at Home: Yes Assistive Devices: Cane Allergies Allergies Allergy/AdvReac Type Severity Reaction Status Date / Time No Known Allergies Allergy Unverified 12/18/22 14:19 Home Meds Previous Rx's Medication Instructions Recorded albuterol sulfate 90 mcg/actuation 1 inh inhalation Q6H PRN shortness 12/25/22 aerosol inhaler of breath or wheezing #8.5 grams Results & Data (ED) Vital Signs Vital Signs - 24 hr 01/11/23 09:59 01/11/23 11:15 01/11/23 11:15 Temperature 36.7 C Temperature Source Temporal Artery Scan Pulse Rate 114 H 118 H Pulse Rate [Right Finger] Pulse Rate from SpO2 Sensor 118 H Respiratory Rate 98 H 20 Respiratory Effort / Characteristics Non-Labored Respiratory Depth Normal Blood Pressure 126/81 154/94 H Blood Pressure Mean 96 139 Pulse Oximetry 99 97 Oxygen Delivery Method Room Air Oxygen Flow Rate Sepsis Recent Fever Within 48 Hours No Sepsis New/Unexplained Change in Mental Status N/A Sepsis Action Taken by Nursing No Action Required 01/11/23 11:18 01/11/23 11:30 01/11/23 11:30 Temperature Temperature Source Pulse Rate 113 H 108 H Pulse Rate [Right Finger] Pulse Rate from SpO2 Sensor 107 H Respiratory Rate 17 Respiratory Effort / Characteristics Respiratory Depth Blood Pressure 148/114 H Blood Pressure Mean 126 Pulse Oximetry 98 Oxygen Delivery Method Oxymask Oxygen Flow Rate 10 Sepsis Recent Fever Within 48 Hours Sepsis New/Unexplained Change in Mental Status Sepsis Action Taken by Nursing 01/11/23 11:36 01/11/23 11:45 01/11/23 11:45 Temperature Temperature Source Pulse Rate 104 H Pulse Rate [Right Finger] 104 H Pulse Rate from SpO2 Sensor 105 H Respiratory Rate 16 12 Respiratory Effort / Characteristics Spontaneous Respiratory Depth Blood Pressure 164/100 H Blood Pressure Mean 135 Pulse Oximetry 99 100 Oxygen Delivery Method Room Air Oxymask Oxygen Flow Rate 10 Sepsis Recent Fever Within 48 Hours Sepsis New/Unexplained Change in Mental Status Sepsis Action Taken by Nursing 01/11/23 12:00 01/11/23 12:00 Temperature Temperature Source Pulse Rate 104 H Pulse Rate [Right Finger] Pulse Rate from SpO2 Sensor 106 H Respiratory Rate 21 Respiratory Effort / Characteristics Respiratory Depth Blood Pressure 158/111 H Blood Pressure Mean 131 Pulse Oximetry 100 Oxygen Delivery Method Oxygen Flow Rate 10 Sepsis Recent Fever Within 48 Hours Sepsis New/Unexplained Change in Mental Status Sepsis Action Taken by Nursing Laboratory Data 01/11/23 10:21 01/11/23 10:21 Lab Results 01/11/23 Range/Units 10:21 WBC 6.48 (4.8-10.8) K/ul RBC 3.92 L (4.70-6.10) M/uL Hgb 11.2 L (14.0-18.0) g/dl Hct 33.4 L (42.0-52.0) % MCV 85.2 (80.0-100.0) fL MCH 28.6 (25.0-34.0) pg MCHC 33.5 (32.0-36.0) g/dL RDW Std Deviation 53.7 H (36.4-46.3) fL RDW Coeff of Antony 17.5 H (11.5-14.5) % Plt Count 421 H (130-400) K/uL MPV 9.7 (9.4-12.4) fL Immature Gran % (Auto) 6.0 % Neut % (Auto) 83.7 % Lymph % (Auto) 7.3 % V[place] % (Auto) 1.4 % Eos % (Auto) 0.2 % Baso % (Auto) 1.4 % Neut # (Auto) 5.43 (1.40-6.50) K/uL Lymph # (Auto) 0.47 L (1.20-3.40) K/uL [place] # (Auto) 0.09 L (0.11-0.59) K/uL Eos # (Auto) 0.01 (0.00-0.50) K/uL Baso # (Auto) 0.09 (0.00-0.20) K/uL Immature Gran # (Auto) 0.39 H (0.01-0.20) K/uL Polychromasia 1+ Sodium 132 L (136-145) mmol/L Potassium 4.6 (3.5-5.1) mmol/L Chloride 92 L (98-107) mmol/L Carbon Dioxide 33 H (21-32) mmol/L Anion Gap 7 (3-11) BUN 9 (6-23) mg/dl Creatinine 0.39 L (0.6-1.4) mg/dl Est Cr Clr Drug Dosing Not Reportable Est GFR ( Amer) 148.0 ml/min Est GFR (Non-Af Amer) 127.7 ml/min BUN/Creatinine Ratio 23.1 H (10-20) Glucose 91 (70-99(Fasting)) mg/dl Calcium 9.8 (8.6-10.3) mg/dl Total Bilirubin 0.3 (0.2-1.0) mg/dl AST 30 (13-39) U/L ALT 11 (7-52) U/L Alkaline Phosphatase 150 H (34-104) U/L Troponin I High Sens 4.8 (0-20) pg/ml Total Protein 7.2 (6.0-8.3) gm/dl Albumin 3.4 (3.4-5.0) gm/dl Globulin 3.8 (2.5-4.0) gm/dl Albumin/Globulin Ratio 0.9 (0.9-2) Administered Medications Acetaminophen (Acetaminophen 500 Mg Tab) 1,000 mg PO Q8 EMMA Stop: 02/10/23 13:59 Last Admin: 01/11/23 14:36 Dose: 1,000 mg Documented By: RIKKI Albuterol (Albut/Ipratrop 3mg/0.5mg Neb 3 Ml Vial) 3 ml NEB Q4R EMMA; Protocol Stop: 02/10/23 14:59 Last Admin: 01/11/23 15:25 Dose: 3 ml Documented By: RICKY Discontinued Medications Albuterol (Albut/Ipratrop 3mg/0.5mg Neb 3 Ml Vial) 12 ml NEB ONE ONE; Protocol Stop: 01/11/23 11:23 Last Admin: 01/11/23 11:29 Dose: 12 ml Documented By: RIKKI Hydromorphone HCl (Hydromorphone Inj 0.5 Mg/0.5 Ml Syr) 0.5 mg IV NOW STA Stop: 01/11/23 11:49 Last Admin: 01/11/23 11:51 Dose: 0.5 mg Documented By: RIKKI Ioversol (Optiray 320 500ml) 90 ml IV ONCE ONE Stop: 01/11/23 13:09 Last Admin: 01/11/23 13:09 Dose: 90 ml Documented By: MARCOS Methylprednisolone (Methylprednisolone 40 Mg/Ml Vial) 40 mg IV NOW STA Stop: 01/11/23 11:23 Last Admin: 01/11/23 11:28 Dose: 40 mg Documented By: RIKKI Morphine Sulfate (Morphine Sulfate 4 Mg/Ml 1 Ml Carp\\Vial) 4 mg IV NOW STA Stop: 01/11/23 11:23 Last Admin: 01/11/23 11:54 Dose: Not Given Documented By: RIKKI Ondansetron HCl (Ondansetron Inj 2 Mg/Ml 2 Ml Vial) 4 mg IV NOW STA Stop: 01/11/23 11:23 Last Admin: 01/11/23 11:52 Dose: 4 mg Documented By: RIKKI Imaging Data Radiologist's Impression: Chest X-Ray 01/11/23 10:02 XR chest 1V not portable CLINICAL HISTORY: Chest pain, nonspecific. Lung cancer. COMPARISON STUDY: Chest radiograph December 22, 2022. Chest CT December 24, 2022. FINDINGS: There is a small left pleural effusion. There is a possible small medial left apical pneumothorax. Left lung aeration has significantly improved since prior chest radiograph and chest CT. Left perihilar masslike opacity is again noted. This has improved. A few nodular right midlung opacities are present. There is no right pneumothorax. There is no evidence for pulmonary edema. Cardiac size is normal. IMPRESSION: 1. Small left pleural effusion. Possible small medial left apical pneumothorax. This is likely artifactual however short-term radiographic follow-up is recommended. 2. Redemonstration of left perihilar mass/adenopathy. Interval improvement in left lung aeration. ACT 112: Negative or not required by law. Electronically signed by: Hung Bautista M.D. 01/11/2023 11:[address] 01/11/23 11:54 CT SCAN OF THE CHEST WITHOUT IV CONTRAST CLINICAL HISTORY: Dyspnea. COMPARISON STUDY: Chest x-ray dated 01/11/2023. Chest CT dated 12/24/2022. TECHNIQUE: CT scan of the thorax was performed from the thoracic inlet to the upper abdomen. Images are reviewed in the axial, sagittal, and coronal planes. IV contrast was not administered for this examination as per the referring clinician. A dose lowering technique was utilized adhering to the principles of ALARA. FINDINGS: Thyroid: Imaged portions of the thyroid gland are normal in size and attenuation. Thoracic aorta: There is atherosclerotic calcification of thoracic aorta, which is normal in caliber and demonstrates standard 3-vessel arch anatomy. Heart: The heart is normal in size noting a small pericardial effusion. The coronary arteries are densely calcified. Lower neck: Mildly enlarged left supraclavicular nodes measure up to 1.3 cm in length as seen on image #26. Lungs and pleural spaces: Moderate emphysematous change is noted. A large left perihilar mass lesion with mediastinal invasion is again noted. This measures approximately 8 x 7 cm seen on images #107 encases the left hilar structures. A large paramediastinal component in the anterior left upper lobe measures approximately 4 x 3.5 cm as seen on image #80. There is segmental atelectasis in the left upper lobe There is a moderate left pleural effusion with atelectasis of the left lower lung. There is secretions/debris within the trachea. There is near-complete opacification of the left mainstem bronchus, with milder debris in the right. Ill-defined patchy opacities are seen throughout the left lung. A 9 mm right apical opacity on image #24 and a 7 mm right upper lobe opacity on image #81 are unchanged. Mediastinum: See above for discussion of a large mediastinal mass. An enlarged subcarinal node measures up to 13 mm in short axis. Jeana: Not well assessed without IV contrast. Axillae: There is no axillary lymphadenopathy. Upper abdomen: Multifocal hepatic metastatic disease is again noted. A 2.9 cm implant is again seen anterior to the left kidney on image #275. No adrenal lesion is seen. Skeletal structures: The skeletal structures appear osteopenic. Mild degenerative change is noted in lower cervical spine and at the thoracolumbar junction. No lytic or blastic bony lesions are seen. There are chronic/heel right-sided rib fractures. IMPRESSION: 1. Emphysema. 2. A large left perihilar mass with mediastinal extension and encasement of the left bronchovascular structures this is likely similar to 12/24/2022 examination. Aeration of the left lung has significantly improved from previous. 3. There is a large paramediastinal component of this lesion in the left upper lung. 4. Moderate left pleural effusion with left basilar atelectasis. 5. Layering debris is seen in the trachea and central airways, with near complete opacification of the left mainstem bronchus. Mild patchy/nodular airspace opacities are seen in the left lung which could represent pneumonia/aspiration pneumonitis. Clinical correlation will be required. 6. Multifocal hepatic metastatic disease and an implant anterior to the left kidney are again noted. 7. Subcentimeter right upper lobe nodular opacities are unchanged. 8. Additional findings as above. ACT 112: Negative or not required by law. Electronically signed by: Fran Mccormick M.D. 01/11/2023 1:58 PM Discharge Plan Visit Data Chief Complaint: Chest Pain Stated Complaint: SOB, CHEST PAIN ED Provider: Manjit Garza Discharge Problem: COPD exacerbation, Chest pain Discharge Instructions Interventions: ED Discharge Assessment Last Done: 01/11/23 12:41 Discharge Problem: Chest pain Qualifiers: Chest pain type: unspecified Qualified Code(s): R07.9 - Chest pain, unspecified
[2023-01-11] MEDS: ONDANSETRON INJ 2 MG/ML 2 ML VIAL IV STA ×2 (11:28→11:52)
[2023-01-11] MEDS ORDERED: HYDROmorphone INJ 0.5 MG/0.5 ML SYR IV STA (11:48)
[2023-01-11] MEDS ORDERED: KETOROLAC TROMETHAMINE 15 MG/ML VIAL IV PRN (12:41)
[2023-01-11] MEDS ORDERED: ONDANSETRON INJ 2 MG/ML 2 ML VIAL IV PRN (12:41)
[2023-01-11] MEDS ORDERED: POLYETHYLENE (MIRALAX) 17 GM PACK PO PRN (12:41)
[2023-01-11] MEDS ORDERED: HYDROmorphone INJ 0.5 MG/0.5 ML SYR IV PRN (12:41)
--- NOTE | 2023-01-11 12:58 | History & Physical Report ---
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 Chest pain SOB COPD Metastatic Small Cell Carcinoma Pt states he had sharp chest pain yesterday with SOB Has not been hypoxic Chest XRAY notes possible L pneumothorax, L pleural effusion and L perihilar mass Trop not elevated, EKG with sinus tachycardia Echo pending CT chest pending Biofire pending Received IV Solu-medrol 40mg, breathing treatment in the ED Pulmonology consult (appreciate recs), scheduled nebs, IV Solu-Medrol 40mg daily PRN inhaler Pain management as needed Metastatic Small Cell Carcinoma Pt with metastatic small cell carcinoma to brain and right inguinal lymph node Pt states that he is currently undergoing chemotherapy, had it 3 days last week before thanksgiving Not currently on hospice Consider palliative care consult once more Hyponatremia Noted sodium of 132 on admission, appears to be around upper limit of his baseline In setting of known small cell lung cancer Continue to monitor R Inguinal Mass R abdominal pain Pt with progressive mass in right inguinal area Notes that it has gotten significantly larger since the biopsy, now with associated RLQ abd pain CT abd/pelvis pending Chronic Normocytic Anemia Hgb of 11, stable Hx of Mycobacterium avium complex infection noted per records, sputum Cx growth in September 2022 Tobacco use disorder ongoing smoker encourage cessation Malnutrition Related to cancer Regular diet and nutrition consult. 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 Hx obtained from pt. States that he started having severe left sided chest pain yesterday, associated with SOB. Pain is unrelenting, does not radiate anywhere. Known Hx of metastatic small cell lung cancer, states that he received 3 days of chemotherapy last week before . Does not use oxygen at baseline. Notes that he has a right inguinal mass that has been getting bigger since the biopsy, now very tender with associated RLQ abdominal pain. States it now makes it hard to walk for him. States that he has chronically been coughing up white sputum but not too increased from baseline. Denies palpitations. States that he is still smoking, though not as much. ED Course: chest xray with possible L pneumothorax, pleural effusion, known mass. CT chest pending, received duoneb, IV Solu-Medrol 40mg, IV Dilaudid Allergies Allergy/AdvReac Type Severity Reaction Status Date / Time No Known Allergies Allergy Unverified 12/18/22 14:19 Home Medications Medication Instructions Recorded Confirmed Type albuterol sulfate 90 mcg/actuation 1 inh inhalation Q6H PRN shortness 12/25/22 01/11/23 Rx aerosol inhaler of breath or wheezing #8.5 grams Past Med/Surg History Medical History COPD (chronic obstructive pulmonary disease) History of torsades de pointes Tobacco use disorder Atherosclerosis of lower extremity with intermittent claudication "right leg" Hypertension Surgical History S/P tonsillectomy and adenoidectomy History of dental surgery Family History Mother Diabetes Heart disease Social History Smoking Status: Current every day smoker Tobacco Type: Cigarettes Cigarettes Per Day: 10-15/DAY; Second Hand Exposure: No; Do You Dip or Chew Tobacco: No; Hx Alcohol Use: Yes Alcohol type: beer Hx Substance Use: Yes Last Used Substance Other:: 20-30 YEARS AGO Preferred Language: Slovenian Communication Ability: Effective 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 Having a breathing treatment Skin: No noted rashes or bruises Psych: Appropriate mood and affect Neuro: No gross deficits HEENT: NC/AT Chest: Nontender to palpation. CV: RRR Resp: Breath sounds with wheezes bilaterally, receiving a breathing treatment Abdomen: Soft, tender in RLQ, noted red tender erythematous mass in right inguinal area Extremities: No edema in lower extremities bilaterally. Results & Data Results & Data Vital Signs (Past 12 Hours) Vital Signs Temp Pulse Pulse Resp BP Pulse Ox O2 Del Method 01/11/23 11:36 104 H 16 99 Room Air 01/11/23 11:18 113 H 01/11/23 11:15 154/94 H 01/11/23 11:15 118 H 20 97 01/11/23 09:59 36.7 C 114 H 98 H 126/81 99 Room Air Diagnostic Findings Chest X-Ray 01/11/23 10:02 XR chest 1V not portable CLINICAL HISTORY: Chest pain, nonspecific. Lung cancer. COMPARISON STUDY: Chest radiograph December 22, 2022. Chest CT December 24, 2022. FINDINGS: There is a small left pleural effusion. There is a possible small medial left apical pneumothorax. Left lung aeration has significantly improved since prior chest radiograph and chest CT. Left perihilar masslike opacity is again noted. This has improved. A few nodular right midlung opacities are prese nt. There is no right pneumothorax. There is no evidence for pulmonary edema. Cardiac size is normal. IMPRESSION: 1. Small left pleural effusion. Possible small medial left apical pneumothorax. This is likely artifactual however short-term radiographic follow-up is recommended. 2. Redemonstration of left perihilar mass/adenopathy. Interval improvement in left lung aeration. ACT 112: Negative or not required by law. Electronically signed by: Hung Bautista M.D. 01/11/2023 11:01 AM (3) COPD (chronic obstructive pulmonary disease) COPD type: COPD with acute exacerbation Qualified Code(s): J44.1 - Chronic obstructive pulmonary disease with (acute) exacerbation (4) Malnutrition Malnutrition type: protein-calorie malnutrition Protein-calorie malnutrition severity: severe Qualified Code(s): E43 - Unspecified severe protein-calorie malnutrition
[2023-01-11] MEDS ORDERED: OPTIRAY 320 500ml IV ONE (13:08)
--- NOTE | 2023-01-11 14:00 | CT Scan Report ---
CT SCAN OF THE CHEST WITHOUT IV CONTRAST CLINICAL HISTORY: Dyspnea. COMPARISON STUDY: Chest x-ray dated 01/11/2023. Chest CT dated 12/24/2022. TECHNIQUE: CT scan of the thorax was performed from the thoracic inlet to the upper abdomen. Images are reviewed in the axial, sagittal, and coronal planes. IV contrast was not administered for this ex amination as per the referring clinician. A dose lowering technique was utilized adhering to the susan Montgomery. FINDINGS: Thyroid: Imaged portions of the thyroid gland are normal in size and attenuation. Thoracic aorta: There is atherosclerotic calcification of thoracic aorta, which is normal in caliber and demonstrates standard 3-vessel arch anatomy. Heart: The heart is normal in size noting a small pericardial effusion. The coronary arteries are den sely calcified. Lower neck: Mildly enlarged left supraclavicular nodes measure up to 1.3 cm in length as seen on imag e #26. Lungs and pleural spaces: Moderate emphysematous change is noted. A large left perihilar mass lesion with mediastinal invasion is again noted. This measures approximately 8 x 7 cm seen on images #107 en cases the left hilar structures. A large paramediastinal component in the anterior left upper lobe me asures approximately 4 x 3.5 cm as seen on image #80. There is segmental atelectasis in the left uppe r lobe There is a moderate left pleural effusion with atelectasis of the left lower lung. There is se cretions/debris within the trachea. There is near-complete opacification of the left mainstem bronchu s, with milder debris in the right. Ill-defined patchy opacities are seen throughout the left lung. A 9 mm right apical opacity on image #24 and a 7 mm right upper lobe opacity on image #81 are unchange d. Mediastinum: See above for discussion of a large mediastinal mass. An enlarged subcarinal node measur es up to 13 mm in short axis. Jeana: Not well assessed without IV contrast. Axillae: There is no axillary lymphadenopathy. Upper abdomen: Multifocal hepatic metastatic disease is again noted. A 2.9 cm implant is again seen a nterior to the left kidney on image #275. No adrenal lesion is seen. Skeletal structures: The skeletal structures appear osteopenic. Mild degenerative change is noted in lower cervical spine and at the thoracolumbar junction. No lytic or blastic bony lesions are seen. Th ere are chronic/heel right-sided rib fractures. IMPRESSION: 1. Emphysema. 2. A large left perihilar mass with mediastinal extension and encasement of the left bronchovascular structures this is likely similar to 12/24/2022 examination. Aeration of the left lung has significant ly improved from previous. 3. There is a large paramediastinal component of this lesion in the left upper lung. 4. Moderate left pleural effusion with left basilar atelectasis. 5. Layering debris is seen in the trachea and central airways, with near complete opacification of th e left mainstem bronchus. Mild patchy/nodular airspace opacities are seen in the left lung which coul d represent pneumonia/aspiration pneumonitis. Clinical correlation will be required. 6. Multifocal hepatic metastatic disease and an implant anterior to the left kidney are again noted. 7. Subcentimeter right upper lobe nodular opacities are unchanged. 8. Additional findings as above. ACT 112: Negative or not required by law. Electronically signed by: Fran Mccormick M.D. 01/11/2023 1:58 PM
[2023-01-11 14:01] LABS: Adenovirus PCR Not Detected (NotDetected); Bordetella parapertussis PCR Not Detected (NotDetected); Bordetella pertussis PCR Not Detected (NotDetected); Chlamydia pneumoniae PCR Not Detected (NotDetected); Coronavirus 229E PCR Not Detected (NotDetected); Coronavirus CoV-2 (COVID19)PCR Not Detected (NotDetected); Coronavirus HKU1 PCR Not Detected (NotDetected); Coronavirus NL63 PCR Not Detected (NotDetected); Coronavirus OC43PCR Not Detected (NotDetected); Human Metapneumovirus PCR Not Detected (NotDetected); Influenza A PCR Not Detected (NotDetected); Influenza B PCR Not Detected (NotDetected); Mycoplasma pneumoniae PCR Not Detected (NotDetected); Parainfluenza Virus 1 PCR Not Detected (NotDetected); Parainfluenza Virus 2 PCR Not Detected (NotDetected); Parainfluenza Virus 3 PCR Not Detected (NotDetected); Parainfluenza Virus 4 PCR Not Detected (NotDetected); Respiratory Syncytial VirusPCR Not Detected (NotDetected); Rhinovirus/Enterovirus PCR Not Detected (NotDetected)
[2023-01-11] MEDS ORDERED: ENOXAPARIN INJ 40 MG/0.4 ML SYR SQ SCH (14:30)
[2023-01-11] MEDS: ACETAMINOPHEN 500 MG TAB PO SCH ×2 (14:36→23:15)
--- NOTE | 2023-01-11 14:43 | Pulmonary Consultation ---
Date of Consultation January 11, 2023 Assessment & Plan (1) Small cell lung cancer: (2) Chest pain: Chest pain type: unspecified Qualified Code(s): R07.9 - Chest pain, unspecified (3) COPD (chronic obstructive pulmonary disease): COPD type: COPD with acute exacerbation Qualified Code(s): J44.1 - Chronic obstructive pulmonary disease with (acute) exacerbation (4) Lung mass: (5) Mycobacterium avium complex: (6) Abnormal chest CT: (7) Pleural effusion: Plan CT chest 01/11/2023 personally reviewed: Right apical 9 mm nodularity, centrilobular emphysema 8 cm x 6.9 cm hilar mass with obstructive atelectasis of the left upper lobe Minimal tree-in-bud opacities in the left lower lobe Moderate left-sided pleural effusion --Left-sided pleural effusion Likely secondary to underlying malignancy --COPD with emphysema Not in exacerbation Continue with inhaled bronchodilators --History of MAC --Metastatic small cell lung cancer Has been started on chemotherapy Following up with oncology -- Overall prognosis of the patient is guarded Plan: Recommend Mucinex with flutter valve along with hypertonic saline Continue with inhaled bronchodilators I did discuss the possibility of thoracentesis, is not certain of doing it right now. He is going to think about it and let us know tomorrow Hold Lovenox after today's dose Please note the above document was generated using voice recognition software. It may contain grammatical, syntax or spelling errors.Any formal questions or concerns about the content, text or information contained within the body of this dictation should be directly addressed to the provider for clarification. History of Present Illness Attending Physician: Sarita Worthington MD History of Present Illness 62-year-old male present to the hospital with complaints of shortness of breath Past medical history: Recently diagnosed metastatic small cell lung cancer,COPD, hypertension, peripheral vascular disease Pulmonary consulted for the same At the time of examination patient was saturating 95-96% on room air He was having his dinner He stated the reason he came to the hospital was shortness of breath and left- sided chest pain On asking whether it hurts when he takes a deep breath and he was not able to give a clear answer. He stated he is feeling better since he came to the hospital. Denies any fever or chills No nausea vomiting No unusual headache or blurry vision Social history: > [id number] smoking history, actively smoking Allergies Allergy/AdvReac Type Severity Reaction Status Date / Time No Known Allergies Allergy Unverified 12/18/22 14:19 Home Medications Medication Instructions Recorded Confirmed Type albuterol sulfate 90 mcg/actuation 1 inh inhalation Q6H PRN shortness 12/25/22 01/11/23 Rx aerosol inhaler of breath or wheezing #8.5 grams Patient History Medical History COPD (chronic obstructive pulmonary disease) History of torsades de pointes Tobacco use disorder Atherosclerosis of lower extremity with intermittent claudication "right leg" Hypertension Surgical History S/P tonsillectomy and adenoidectomy History of dental surgery Family History Mother Diabetes Heart disease Social History Smoking Status: Current every day smoker Tobacco Type: Cigarettes Cigarettes Per Day: 10-15; Second Hand Exposure: Yes; Do You Dip or Chew Tobacco: No; Hx Alcohol Use: Yes Alcohol type: beer Hx Substance Use: No Preferred Language: Swedish Communication Ability: Effective Tool Maker Required: No Beliefs That Will Affect Care: None Current Living Situation: Alone Feels Safe at Home: Yes Assistive Devices: Cane Review of Systems 2 Review of Systems: All systems reviewed & are unremarkable except as noted in HPI & below Physical Exam 2 Physical Exam: Constitutional: No acute distress, cachexia HEENT: EOMI, PERRLA Respiratory system: Decreased air entry bilaterally, more decreased on the left side, no wheeze, no rhonchi, mild crackles bilateral lower lobes CVS: S1-S2 positive, no murmurs or gallops Abdomen: Soft, nontender, nondistended, positive bowel sounds x4 Extremities: +2 pulses bilaterally radialis/ dorsalis pedis, no cyanosis, no edema Neuro: Awake alert oriented x3 Psych: Normal mood and affect G/U: No Gomez Skin: no rashes, warm and dry Lymphatic: no cervical or axillary lymphadenopathy Results & Data Results & Data Vital Signs (Past 12 Hours) Vital Signs Temp Pulse Pulse Resp BP Pulse Ox O2 Del Method 01/11/23 13:45 142/112 H 01/11/23 13:45 109 H 13 100 01/11/23 13:30 144/99 H 01/11/23 13:30 110 H 15 100 01/11/23 13:15 111 H 17 100 01/11/23 13:15 165/101 H 01/11/23 13:13 113 H 18 01/11/23 12:45 156/92 H 01/11/23 12:45 120 H 14 100 01/11/23 12:41 Room Air 01/11/23 12:30 146/100 H 01/11/23 12:30 110 H 18 100 01/11/23 12:15 160/98 H 01/11/23 12:15 109 H 24 100 01/11/23 12:00 104 H 21 100 01/11/23 12:00 158/111 H 01/11/23 11:45 164/100 H 01/11/23 11:45 104 H 12 100 Oxymask 01/11/23 11:36 104 H 16 99 Room Air 01/11/23 11:30 148/114 H 01/11/23 11:30 108 H 17 98 Oxymask 01/11/23 11:18 113 H 01/11/23 11:15 154/94 H 01/11/23 11:15 118 H 20 97 01/11/23 09:59 36.7 C 114 H 98 H 126/81 99 Room Air O2 Flow Rate 01/11/23 13:45 01/11/23 13:45 10 01/11/23 13:30 01/11/23 13:30 10 01/11/23 13:15 10 01/11/23 13:15 01/11/23 13:13 01/11/23 12:45 01/11/23 12:45 10 01/11/23 12:41 01/11/23 12:30 01/11/23 12:30 10 01/11/23 12:15 01/11/23 12:15 10 01/11/23 12:00 10 01/11/23 12:00 01/11/23 11:45 01/11/23 11:45 10 01/11/23 11:36 01/11/23 11:30 01/11/23 11:30 10 01/11/23 11:18 01/11/23 11:15 01/11/23 11:15 01/11/23 09:59 Laboratory Results 01/11/23 10:21 01/11/23 10:21 PG Care Time/CCT Total # of Minutes Spent Total Time Spent with Patient: Total time spent is greater than 50% in coordination of care (as documented) at patient's floor/unit and/or counseling patient: Coding Level of Care Code 88144 INT INP/OBS CARE 3/75MIN Diagnoses Small cell lung cancer C34.90 Chest pain R07.9 Chest pain type: unspecified COPD (chronic obstructive pulmonary disease) J44.1 COPD type: COPD with acute exacerbation Lung mass R91.8 Mycobacterium avium complex A31.[address] R93.89 Pleural effusion J90
[2023-01-11] MEDS: ALBUT/IPRATROP 3MG/0.5MG NEB 3 ML VIAL NEB SCH ×3 (15:25→23:46)
--- NOTE | 2023-01-11 15:34 | CT Scan Report ---
ABDOMEN AND PELVIS CT WITH IV CONTRAST CT DOSE: 560.58 mGy.cm HISTORY: Acute right lower quadrant abdominal pain. RLQ abd pain, enlarging painful inguinal lump TECHNIQUE: Multiaxial CT images of the abdomen and pelvis were performed following the IV administrat ion of 90 cc of Optiray, A dose lowering technique was utilized adhering to the principles of ALARA. COMPARISON STUDY: Chest CT of same day, CT abdomen and pelvis 12/18/2022. FINDINGS: Increased size of the left pleural effusion with persistent left basilar consolidation. Shae gular collapse is partially imaged. Persistent tree-in-bud nodules of the left lower lobe with mild d ependent left lower lobe atelectasis. No free air. Unremarkable adrenal glands. Unremarkable pancreas . Metastatic lesion along the anterior medial margin of the left kidney on image 114 denoted measurin g 2.9 x 2.2 cm, similar to prior. Multifocal hepatic metastatic disease redemonstrated. Index 3.0 cm lesion within the left hepatic lobe on image 104 previously measured 3.3 cm. Several of the lesions a ppear to be slightly decreased in size from prior including a 1.9 cm inferior right hepatic lobe lesi on on image 152, previously 2.5 cm. Patent portal vein. No hydronephrosis. Mildly distended urinary bladder. Prostatomegaly. Atherosclerosis of the aorta. Me tastatic lymph nodes within the abdomen and pelvis are again noted. This includes conglomerate right inguinal lymphadenopathy measuring up to 5.2 x 3.8 cm, previously 5.0 x 3.2 cm. A 2.0 x 1.7 cm right inguinal chain lymph node previously measured 1.3 x 1.2 cm. Additional pathologic perirectal lymph no venita include conglomerate lymph nodes measuring up to 3.0 x 1.7 cm on image [address] able. 1.7 x 1.0 cm precaval lymph node on image 163 is stable. Duodenal diverticula. There is no bowel obstruction. Irregular thickening and enhancement within the anus again noted. Healing subacute right-sided rib fractures. No acute fracture identified. Mild feca l retention. Noninflamed appendix. 9 mm mesenteric nodule within the pelvis on image 223. Multifocal high-grade stenoses of the femoral arteries secondary to prominent atherosclerotic plaque. Chronic L5 pars defects with unchanged anterolisthesis. No new destructive bone lesions. IMPRESSION: 1. No bowel obstruction or pneumoperitoneum. 2. Increased size of the left pleural effusion with persistent left lower lobe tree-in-bud nodules an d mucous plugging. Please refer to the chest CT of same day for additional thoracic findings. 3. Irregular thickening and enhancement of the anus is again noted suspicious for malignancy. 4. Metastatic lymphadenopathy, progressed within the right inguinal distribution. 5. Multifocal hepatic metastases appear stable to mildly decreased in size from prior. 6. Additional findings as above. ACT 112: Negative or not required by law. The above report was generated using voice recognition software. It may contain grammatical, syntax o r spelling errors. Dictated: 01/11/2023 1:44 PM Transcribed: 01/11/2023 2:06 PM Garo [id number] Darrion [id number] Electronically signed by: Trever Ellis M.D. 01/11/2023 3:33 PM
[2023-01-11] MEDS: Patient's HEIGHT &/or WEIGHT Needed SCH ×5 (19:03→21:43)
[2023-01-11 19:30] LABS: D Dimer 2480 ug/L FEU (0-500)
--- NOTE | 2023-01-11 19:50 | Electrocardiogram Report ---
Test Reason : Blood Pressure : / mmHG Vent. Rate : 113 BPM Atrial Rate : 113 BPM P-R Int : 124 ms QRS Dur : 064 ms QT Int : 318 ms P-R-T Axes : 067 005 090 degrees QTc Int : 436 ms Sinus tachycardia Anteroseptal infarct (cited on or before 11-JAN-2023) Abnormal ECG When compared with ECG of 18-DEC-2022 11:54, QRS axis Shifted right Serial changes of Anteroseptal infarct Present Confirmed by Gage Martinez ([id number]) on 01/11/2023 7:49:45 PM Referred By: Confirmed By:Kan Martinez
--- NOTE | 2023-01-11 20:03 | Communication Note ---
Date of Service: January 11, 2023 CT chest w/o contrast previously ordered. Pt with noted cancer, chest pain, SOB and EKG with sinus tach. D-dimer subsequently elevated, stat bilateral doppler of lower extremities ordered and pending. Discussion with pulmonology, low suspicion for PE given pt on RA, saturating >95%, chest pain likely from cancer. If doppler shows DVT, consider starting IV heparin (noted DVT prophylaxis currently on hold by pulm for possible thoracentesis). If no DVT, less likely d-dimer elevation related to PE. Appreciate pulmonology recs.
[2023-01-12] MEDS: ALBUT/IPRATROP 3MG/0.5MG NEB 3 ML VIAL NEB SCH ×6 (03:31→23:14)
--- NOTE | 2023-01-12 04:14 | Ultrasound Report ---
Exam(s): US VENOUS BILATERAL LOWER EXTREMITIES EXAM: US Duplex Bilateral Lower Extremities Veins CLINICAL HISTORY: r/o DVT, elevated d-dimer. TECHNIQUE: Real-time duplex ultrasound scan of the bilateral lower extremity veins integrating B-mode two-dimensional vascular structure, Doppler spectral analysis, color flow Doppler imaging and compression. COMPARISON: No relevant prior studies available. FINDINGS: Right deep veins: Unremarkable. No DVT in the right common femoral, femoral, proximal deep femoral or popliteal veins. The veins demonstrate normal color flow, are normally compressible, with normal phasic flow and/or augmentation response. The interrogated calf veins are patent. Right superficial veins: Unremarkable. No thrombus in the saphenofemoral junction. Left deep veins: Unremarkable. No DVT in the left common femoral, femoral, proximal deep femoral or popliteal veins. The veins demonstrate normal color flow, are normally compressible, with normal phasic flow and/or augmentation response. The interrogated calf veins are patent. Left superficial veins: Unremarkable. No thrombus in the saphenofemoral junction. Soft tissues: There is a heterogeneously slightly hypoechoic ovoid structure in the right groin measuring 5.4 x 4.9 x 4 cm. Questionable minimal internal vascular flow. No popliteal cyst. IMPRESSION: 1. No evidence for deep vein thrombosis involving the bilateral lower extremities. 2. There is a heterogeneously slightly hypoechoic ovoid structure in the right groin measuring 5.4 x 4.9 x 4 cm. Questionable minimal internal vascular flow. Differential consideration includes subcutaneous hematoma with artifact on color flow imaging versus a poorly vascularized soft tissue mass. CT evaluation with contrast should provide additional information, as appropriate. Electronically signed by: Justin Avila MD 01/12/23 04:12 AM
[2023-01-12 05:43] LABS: Basophils # (auto) 0.02 K/uL (0.00-0.20); Basophils % (auto) 0.4 %; Eosinophils # (auto) 0.02 K/uL (0.00-0.50); Eosinophils % (auto) 0.4 %; Hematocrit (blood only) 27.7 % (42.0-52.0); Hemoglobin 9.1 g/dl (14.0-18.0); Immature Granulocytes # (auto) 0.16 K/uL (0.01-0.20); Immature Granulocytes % (auto) 3.4 %; Lymphocytes # (auto) 0.52 K/uL (1.20-3.40); Lymphocytes % (auto) 11.2 %; Mean Corpuscular Hemoglobin 28.4 pg (25.0-34.0); Mean Corpuscular Hgb Conc 32.9 g/dL (32.0-36.0); Mean Corpuscular Volume 86.6 fL (80.0-100.0); Mean Platelet Volume 9.6 fL (9.4-12.4); Monocytes % (auto) 4.3 %; Neutrophils # (auto) 3.74 K/uL (1.40-6.50); Neutrophils % (auto) 80.3 %; Platelet Count 303 K/uL (130-400); RDW Coefficient of Variation 16.9 % (11.5-14.5); RDW Standard Deviation 53.5 fL (36.4-46.3); White Blood Count 4.66 K/ul (4.8-10.8)
[2023-01-12 06:03] LABS: Albumin Globulin Ratio 0.9 (0.9-2); Albumin Level 2.9 gm/dl (3.4-5.0); Bilirubin,Total 0.2 mg/dl (0.2-1.0); Calcium 8.5 mg/dl (8.6-10.3); Creatinine Clr Calc Pharmacy 128.1 ml/min; Est GFR (African American) 140.9 ml/min; Est GFR (Non-African American) 121.6 ml/min; Globulin 3.1 gm/dl (2.5-4.0); Magnesium 1.6 mg/dl (1.7-2.4); Phosphorus 3.1 mg/dl (2.5-4.9); Potassium 3.7 mmol/L (3.5-5.1)
[2023-01-12] MEDS: Patient's HEIGHT &/or WEIGHT Needed SCH ×3 (06:05→10:27)
[2023-01-12] MEDS: ACETAMINOPHEN 500 MG TAB PO SCH ×3 (06:05→21:07)
--- NOTE | 2023-01-12 07:15 | Hospitalist Progress Note ---
Date of Service January 12, 2023 Assessment & Plan (1) Small cell lung cancer: (2) Anemia: (3) COPD (chronic obstructive pulmonary disease): (4) Malnutrition: (5) Mass of right inguinal region: (6) Mycobacterium avium complex: (7) Tobacco use disorder: Plan Mr. Johnnie Romero is a 62 y/o male with moderate COPD, history tobacco abuse, HTN, hx torsades de pointes due to electrolyte imbalance, and RLE atherosclerosis and claudication who was admitted on 01/11 due to chest pain. Patient recently admitted on 12/18 from outpatient pulmonology with tachycardia and borderline hypoxia. He has a known left hilar mass, which was enlarging on most recent outpatient CT. He followed up with pulmonology today who noted he has been progressively worsening overall and referred him to the ED for evaluation and possible admission. In the ED, he was placed on 2L of O2 and given IVF as well as empiric Zosyn, ultimately admitted on 12/18 for concerns of post obstructive pneumonia . OP biopsy of mass was anticipated; however, patient underwent FNA of lymph node in right inguinal area on 12/21. Pathology results consistent with metastatic small cell carcinoma. Patient was discharged with home health and OP chemotherapy. Chemoimmunotherapy started last week. Patient now with moderate left side effusion and associated ateletecasis. Possibility for thoracentesis tomorrow with Pulmonary. #Non-Cardiac pain #Left Pleural Effusion with atelectasis Undergoing chemoimmunotherapy for SCC, experiencing sharp/pleuritic chest pain yesterday with SOB CT Chest:large pleural effusion, metastatic lesion on left kidney, hepatic lesions (few slightly decreased in size), metastatic lymphadenopathy in A/P, thickening of anus with enhancement Chest XRAY notes possible L pneumothorax, L pleural effusion and L perihilar mass Abnormal EKG, but no acute ischemia; ECHO hyperdynamic, no wall motion abnormalities Biofire negative DVT doppler negative Pulmonary on consult: recommending Mucinex and flutter valve Continue inhalers Lovenox held for tenative thoracentesis tomorrow, 01/13 Symptom control with cough suppression and pain mgmt #Metastatic Small Cell Lung Cancer -As above CT findings with liver, kidney, ?anus involvement with metastatic lymphadenopathy #COPD #Emphysema on imaging #Hx of Mycobacterium avium complex infection noted per records, sputum Cx growth in September 2022 No exacerbation, no indication to continue steroids Continue bronchodilators #Debris in trachea, ?aspiration -Speech, video swallow #Chronic Hyponatremia Chronic, stable, POA Encourage PO intake Trend BMP #Right Inguinal Mass Metastatic lymphadenopathy progressed since last imaging, predominately within the right inguinal distribution per CT image 01/10; biopsied last admission +SCC #Chronic Normocytic Anemia Hgb of 11, stable B12, Folate WNL, labs suggestive of chronic disease last admission #Tobacco use disorder ongoing smoker encourage cessation #Severe protein calorie malnutrition Related to cancer Regular diet and nutrition consult. Encourage intake as tolerated CODE STATUS: Full code per discussion with pt on admission DVT prophylaxis: Lovenox SQ (held iso possible thora) Diet: Regular Dispo: PCU/tele Admission and Anticipated Discharge Date Admission Date: January 11, 2023 Subjective Reports feeling stable today, denies any recurrence of the pain overnight. Notes that it was tender to touch yesterday, but now notes it is less so this morning His concern mostly is a cough that is ongoing and relieved with cough syrup as needed He denies any fevers, chest pain of other quality/character, or other acute concerns this am Review of Systems Review of Systems: All systems reviewed & are unremarkable except as noted in Subjective Physical Exam Constitutional: cachectic thin gentleman, tremulous, but conversation and not in distress Respiratory: decreased breath sounds left air brar, occasional left crackles/rhonchi Cardiovascular: RRR, no murmur, no edema Gastrointestinal (Abdomen): normal bowel sounds, soft, nontender, no hepatosplenomegaly Skin: large right inguinal mass tender to palpation Results & Data Results & Data Vital Signs (Past 12 Hours) Vital Signs Temp Pulse Pulse Resp BP Pulse Ox O2 Del Method 01/12/23 07:09 79 15 98 Room Air 01/12/23 03:33 86 16 92 Room Air 01/12/23 03:12 36.3 C L 77 18 149/80 H 99 Room Air 01/11/23 23:47 93 H 16 93 Room Air 01/11/23 22:45 94 H 01/11/23 22:40 Room Air 01/11/23 22:40 36.4 C 96 H 20 127/76 97 Room Air 01/11/23 21:14 100 H FiO2 01/12/23 07:09 21 01/12/23 03:33 01/12/23 03:12 01/11/23 23:47 01/11/23 22:45 01/11/23 22:40 01/11/23 22:40 01/11/23 21:14 Laboratory Results Short CBC 01/11/23 01/12/23 Range/Units 10:21 05:19 WBC 6.48 4.66 L (4.8-10.8) K/ul Hgb 11.2 L 9.1 L (14.0-18.0) g/dl Hct 33.4 L 27.7 L (42.0-52.0) % Plt Count 421 H 303 (130-400) K/uL BMP 01/11/23 01/12/23 10:21 05:19 Sodium 132 L 132 L Potassium 4.6 3.7 Chloride 92 L 95 L Carbon Dioxide 33 H 30 BUN 9 11 Creatinine 0.39 L 0.44 L Glucose 91 109 H Calcium 9.8 8.5 L Liver Function 01/11/23 01/12/23 Range/Units 10:21 05:19 Total Bilirubin 0.3 0.2 (0.2-1.0) mg/dl AST 30 25 (13-39) U/L ALT 11 9 (7-52) U/L Alkaline Phosphatase 150 H 117 H (34-104) U/L Albumin 3.4 2.9 L (3.4-5.0) gm/dl Medications Administered Home Medications Medication Instructions Recorded Confirmed Last Taken albuterol sulfate 90 mcg/actuation 1 inh inhalation Q6H PRN shortness 12/25/22 01/11/23 Unknown aerosol inhaler of breath or wheezing #8.5 grams Active Medications Generic Name Dose Route Start Last Admin Trade Name Latasha PRN Reason Stop Dose Admin Acetaminophen 1,000 mg 01/11/23 14:00 01/12/23 06:05 Acetaminophen 500 Mg Tab PO 02/10/23 13:59 1,000 mg Q8 EMMA Administration Albuterol 3 ml 01/11/23 15:00 01/12/23 07:08 Albut/Ipratrop 3mg/0.5mg Neb 3 Ml Vial NEB 02/10/23 14:59 3 ml Q4R EMMA Administration Protocol Enoxaparin Sodium 40 mg 01/11/23 14:30 01/11/23 16:36 Enoxaparin Inj 40 Mg/0.4 Ml Syr SQ 02/10/23 14:29 40 mg Q24H EMMA Administration Guaifenesin 1,200 mg 01/12/23 09:00 01/12/23 09:30 Guaifenesin 600 Mg Tabcr PO 02/11/23 08:59 1,200 mg Q12 EMMA Administration Methylprednisolone 40 mg/ 0.64 mls @ 1.5 mls/min 01/12/23 09:00 01/12/23 09:30 Syringe IV 02/11/23 08:59 1.5 mls/min DAILY EMMA Administration Umeclidinium/Vilanterol 1 puffs 01/12/23 09:00 01/12/23 09:30 Umeclidinium/Vilanterol 62.5/25mcg 7 Puffs/Inhaler INH 02/11/23 08:59 1 puffs DAILY EMMA Administration (3) COPD (chronic obstructive pulmonary disease) COPD type: COPD with acute exacerbation Qualified Code(s): J44.1 - Chronic obstructive pulmonary disease with (acute) exacerbation (4) Malnutrition Malnutrition type: protein-calorie malnutrition Protein-calorie malnutrition severity: severe Qualified Code(s): E43 - Unspecified severe protein-calorie malnutrition
--- NOTE | 2023-01-12 08:31 | Pulmonology Progress Note ---
Date of Service January 12, 2023 Assessment & Plan (1) Small cell lung cancer: (2) Chest pain: Chest pain type: unspecified Qualified Code(s): R07.9 - Chest pain, unspecified (3) COPD (chronic obstructive pulmonary disease): COPD type: COPD with acute exacerbation Qualified Code(s): J44.1 - Chronic obstructive pulmonary disease with (acute) exacerbation (4) Lung mass: (5) Mycobacterium avium complex: (6) Abnormal chest CT: (7) Pleural effusion: Plan CT chest 01/11/2023 personally reviewed: Right apical 9 mm nodularity, centrilobular emphysema 8 cm x 6.9 cm hilar mass with obstructive atelectasis of the left upper lobe Minimal tree-in-bud opacities in the left lower lobe Moderate left-sided pleural effusion --Left-sided pleural effusion Likely secondary to underlying malignancy --COPD with emphysema Not in exacerbation Continue with inhaled bronchodilators --History of MAC --Metastatic small cell lung cancer Has been started on chemotherapy Following up with oncology -- Overall prognosis of the patient is guarded Plan: Recommend Mucinex with flutter valve along with hypertonic saline Continue with inhaled bronchodilators I again discussed regarding thoracentesis with the patient. I explained to the patient that the fluid is most likely malignant and it is unlikely that it will resolve on its own Patient understands and wants to avoid any procedure. No further recommendation from pulmonary perspective, will sign off If patient changes his mind please call directly. Okay to resume Lovenox Case was discussed with Dr. Fisher Please note the above document was generated using voice recognition software. It may contain grammatical, syntax or spelling errors.Any formal questions or concerns about the content, text or information contained within the body of this dictation should be directly addressed to the provider for clarification. Admission and Anticipated Discharge Date Admission Date: January 11, 2023 Subjective Patient seen and examined at bedside. No acute distress, notable since overnight He says he is feeling better since coming to the hospital Was saturating well on room air Chest pain has significantly decreased. Occasional cough with clear phlegm. Denies any hemoptysis Has been afebrile Review of Systems 2 Review of Systems: All systems reviewed & are unremarkable except as noted in Subjective Physical Exam 2 Physical Exam: Constitutional: No acute distress, cachexia HEENT: EOMI, PERRLA Respiratory system: Decreased air entry bilaterally, more decreased on the left side, no wheeze, no rhonchi, mild crackles bilateral lower lobes CVS: S1-S2 positive, no murmurs or gallops Abdomen: Soft, nontender, nondistended, positive bowel sounds x4 Extremities: +2 pulses bilaterally radialis/ dorsalis pedis, no cyanosis, no edema Neuro: Awake alert oriented x3 Psych: Normal mood and affect G/U: No Gomez Skin: no rashes, warm and dry Lymphatic: no cervical or axillary lymphadenopathy Results & Data Results & Data Vital Signs (Past 12 Hours) Vital Signs Temp Pulse Pulse Resp BP Pulse Ox O2 Del Method 01/12/23 08:21 36.5 C 68 20 151/90 H 96 Room Air 01/12/23 08:17 Room Air 01/12/23 07:09 79 15 98 Room Air 01/12/23 03:33 86 16 92 Room Air 01/12/23 03:12 36.3 C L 77 18 149/80 H 99 Room Air 01/11/23 23:47 93 H 16 93 Room Air 01/11/23 22:45 94 H 01/11/23 22:40 Room Air 01/11/23 22:40 36.4 C 96 H 20 127/76 97 Room Air 01/11/23 21:14 100 H FiO2 01/12/23 08:21 01/12/23 08:17 01/12/23 07:09 21 01/12/23 03:33 01/12/23 03:12 01/11/23 23:47 01/11/23 22:45 01/11/23 22:40 01/11/23 22:40 01/11/23 21:14 Laboratory Results 01/12/23 05:19 01/12/23 05:19 PG Care Time/CCT Total # of Minutes Spent Total Time Spent with Patient: Total time spent is greater than 50% in coordination of care (as documented) at patient's floor/unit and/or counseling patient: Coding Level of Care Code 29083 SUB INP/OBS CARE 2/35MIN Diagnoses Small cell lung cancer C34.90 Chest pain R07.9 Chest pain type: unspecified COPD (chronic obstructive pulmonary disease) J44.1 COPD type: COPD with acute exacerbation Lung mass R91.8 Mycobacterium avium complex A31.[address] R93.89 Pleural effusion J90
[2023-01-12] MEDS ORDERED: methylPREDNISolone 40 MG in SYRINGE 0 ML IV SCH (09:00)
[2023-01-12] MEDS: UMECLIDINIUM/VILANTEROL 62.5/25MCG 7 PUFFS/INHALER INH SCH (09:30)
[2023-01-12] MEDS: guaiFENesin 600 MG TABCR PO SCH ×2 (09:30→20:07)
[2023-01-12] MEDS ORDERED: Nursing to Pharmacy Communication SCH (10:30)
[2023-01-12] MEDS: guaiFENesin/CODEINE 100MG/10MG 5ML UDC PO PRN ×2 (14:04→21:07)
--- NOTE | 2023-01-12 15:45 | Fluoroscopy Report ---
MODIFIED BARIUM SWALLOW CLINICAL HISTORY: r/o aspiration COMPARISON STUDY: None. FLUOROSCOPY TIME: 1.30 minutes. Ka, r: 5.54 mGy. TECHNIQUE: A modified barium swallow was performed in conjunction with Speech Pathology. The patient ingested varying consistencies of barium containing material. Video fluoroscopy was performed. FINDINGS: No tracheal aspiration was identified with thin liquids via spoon or cup. A small amount of tracheal aspiration with thin liquids by straw elicited a cough. There was no aspiration with nectar thick liquids, pudding or cracker and pudding consistencies. IMPRESSION: 1. Small amount of tracheal aspiration with thin liquids by straw. No aspiration with remainder of th e consistencies. 2. Full recommendations by Speech pathology to follow. ACT 112: Negative or not required by law. Electronically signed by: Hung Bautista M.D. 01/12/2023 3:43 PM
[2023-01-12] MEDS: SODIUM CHLOR 7% 4 ML NEB NEB SCH (19:20)
[2023-01-13] MEDS: ALBUT/IPRATROP 3MG/0.5MG NEB 3 ML VIAL NEB SCH ×6 (02:32→23:20)
[2023-01-13] MEDS: ACETAMINOPHEN 500 MG TAB PO SCH ×3 (05:18→20:00)
[2023-01-13] MEDS: guaiFENesin/CODEINE 100MG/10MG 5ML UDC PO PRN ×3 (05:18→23:07)
[2023-01-13 06:38] LABS: Hematocrit (blood only) 32.2 % (42.0-52.0); Hemoglobin 10.4 g/dl (14.0-18.0); Mean Corpuscular Hemoglobin 28.3 pg (25.0-34.0); Mean Corpuscular Hgb Conc 32.3 g/dL (32.0-36.0); Mean Corpuscular Volume 87.7 fL (80.0-100.0); Mean Platelet Volume 9.8 fL (9.4-12.4); Platelet Count 319 K/uL (130-400); RDW Coefficient of Variation 17.2 % (11.5-14.5); RDW Standard Deviation 55.4 fL (36.4-46.3); Red Blood Count 3.67 M/uL (4.70-6.10); White Blood Count 2.36 K/ul (4.8-10.8)
[2023-01-13 06:59] LABS: BUN Creatinine Ratio 20.8 (10-20); Calcium 9.1 mg/dl (8.6-10.3); Creatinine Clr Calc Pharmacy 96.5 ml/min; Est GFR (African American) 135.9 ml/min; Est GFR (Non-African American) 117.3 ml/min; Magnesium 1.7 mg/dl (1.7-2.4); Phosphorus 2.9 mg/dl (2.5-4.9); Potassium 4.2 mmol/L (3.5-5.1)
[2023-01-13 07:01] LABS: INR 0.9 (0.9-1.1); Prothrombin Time 9.6 Seconds (9.0-12.0)
[2023-01-13] MEDS: SODIUM CHLOR 7% 4 ML NEB NEB SCH ×2 (07:38→20:32)
[2023-01-13] MEDS: guaiFENesin 600 MG TABCR PO SCH ×2 (09:19→20:01)
[2023-01-13] MEDS: UMECLIDINIUM/VILANTEROL 62.5/25MCG 7 PUFFS/INHALER INH SCH (09:19)
--- NOTE | 2023-01-13 12:10 | Hospitalist Progress Note ---
Date of Service January 13, 2023 Assessment & Plan (1) Small cell lung cancer: (2) Anemia: (3) COPD (chronic obstructive pulmonary disease): (4) Malnutrition: (5) Mass of right inguinal region: (6) Mycobacterium avium complex: (7) Tobacco use disorder: Plan per Dr. Fritz's notes with addendum: Mr. Johnnie Romero is a 62 y/o male with moderate COPD, history tobacco abuse, HTN, hx torsades de pointes due to electrolyte imbalance, and RLE atherosclerosis and claudication who was admitted on 01/11 due to chest pain. Patient recently admitted on 12/18 from outpatient pulmonology with tachycardia and borderline hypoxia. He has a known left hilar mass, which was enlarging on most recent outpatient CT. He followed up with pulmonology today who noted he has been progressively worsening overall and referred him to the ED for evaluation and possible admission. In the ED, he was placed on 2L of O2 and given IVF as well as empiric Zosyn, ultimately admitted on 12/18 for concerns of post obstructive pneumonia . OP biopsy of mass was anticipated; however, patient underwent FNA of lymph node in right inguinal area on 12/21. Pathology results consistent with metastatic small cell carcinoma. Patient was discharged with home health and OP chemotherapy. Chemoimmunotherapy started last week. Patient now with moderate left side effusion and associated ateletecasis. Possibility for thoracentesis tomorrow with Pulmonary. #Non-Cardiac pain #Left Pleural Effusion with atelectasis Undergoing chemoimmunotherapy for SCC, experiencing sharp/pleuritic chest pain yesterday with SOB CT Chest:large pleural effusion, metastatic lesion on left kidney, hepatic lesions (few slightly decreased in size), metastatic lymphadenopathy in A/P, thickening of anus with enhancement Chest XRAY notes possible L pneumothorax, L pleural effusion and L perihilar mass Abnormal EKG, but no acute ischemia; ECHO hyperdynamic, no wall motion abnormalities Biofire negative DVT doppler negative Pulmonary on consult: recommending Mucinex and flutter valve Continue inhalers Lovenox held for tenative thoracentesis tomorrow, 01/13 Symptom control with cough suppression and pain mgmt 01/13 Patient declining thoracentesis before discussion with his oncologist Dr. Golden, she will see the patient today Continue Mucinex, flutter valve #Metastatic Small Cell Lung Cancer -As above CT findings with liver, kidney, ?anus involvement with metastatic lymphadenopathy #COPD #Emphysema on imaging #Hx of Mycobacterium avium complex infection noted per records, sputum Cx growth in September 2022 No exacerbation, no indication to continue steroids Continue bronchodilators Another exacerbation Continue Anoro Ellipta #Debris in trachea, ?aspiration -Speech, video swallow 01/13 Status post video swallow: Mild pharyngeal dysphagia Regular diet, aspiration precautions, oral hygiene #Chronic Hyponatremia Chronic, stable, POA Encourage PO intake Trend BMP Sodium 134 #Right Inguinal Mass Metastatic lymphadenopathy progressed since last imaging, predominately within the right inguinal distribution per CT image 01/10; biopsied last admission +SCC #Chronic Normocytic Anemia Hgb of 11, stable B12, Folate WNL, labs suggestive of chronic disease last admission #Tobacco use disorder ongoing smoker encourage cessation #Severe protein calorie malnutrition Related to cancer Regular diet and nutrition consult. Encourage intake as tolerated CODE STATUS: Full code per discussion with pt on admission DVT prophylaxis: Lovenox SQ (held iso possible thora) Diet: Regular Dispo: Anticipate discharge to home when medically stable Admission and Anticipated Discharge Date Admission Date: January 11, 2023 Subjective Follow-up for left pleural effusion, etc. Resting in bed, comfortable, sitting up, not in distress States breathing is okay today Denies shortness of breath Has occasional cough, dry No chest pain, palpitations, dizziness, fevers or chills No other new symptoms Review of Systems Review of Systems: all noted and negative except for above Physical Exam 2 Physical Exam: General- oriented x 3, not in distress, speaks in sentences with no effort or accessory muscle use Eyes- anicteric Neck- no JVD Lungs-decreased breath sounds on the left, clear on the right No wheezing No crackles or rhonchi Heart- normal rate, regular rhythm; no murmurs Abdomen- normal bowel sounds, nondistended, soft, nontender Extremities- no pretibial edema, no calf tenderness Neuro- alert, oriented x 3; no gross focal neurologic deficits Skin- warm & dry Results & Data Results & Data Vital Signs (Past 12 Hours) Vital Signs Temp Pulse Resp BP Pulse Ox O2 Del Method 01/13/23 11:44 102 H 18 93 Room Air 01/13/23 11:23 36.3 C L 104 H 19 150/88 H 95 Room Air 01/13/23 07:40 68 22 94 Room Air 01/13/23 07:26 36.5 C 93 H 16 155/87 H 94 Room Air 01/13/23 03:10 36.8 C 96 H 18 125/82 96 Room Air 01/13/23 02:32 96 H 18 98 Room Air all noted and reviewed including below (3) COPD (chronic obstructive pulmonary disease) COPD type: COPD with acute exacerbation Qualified Code(s): J44.1 - Chronic obstructive pulmonary disease with (acute) exacerbation (4) Malnutrition Malnutrition type: protein-calorie malnutrition Protein-calorie malnutrition severity: severe Qualified Code(s): E43 - Unspecified severe protein-calorie malnutrition
--- NOTE | 2023-01-13 15:10 | Pulmonology Progress Note ---
Date of Service January 13, 2023 Assessment & Plan (1) Small cell lung cancer: (2) Chest pain: Chest pain type: unspecified Qualified Code(s): R07.9 - Chest pain, unspecified (3) COPD (chronic obstructive pulmonary disease): COPD type: COPD with acute exacerbation Qualified Code(s): J44.1 - Chronic obstructive pulmonary disease with (acute) exacerbation (4) Lung mass: (5) Mycobacterium avium complex: (6) Abnormal chest CT: (7) Pleural effusion: Plan CT chest 01/11/2023 personally reviewed: Right apical 9 mm nodularity, centrilobular emphysema 8 cm x 6.9 cm hilar mass with obstructive atelectasis of the left upper lobe Minimal tree-in-bud opacities in the left lower lobe Moderate left-sided pleural effusion --Left-sided pleural effusion Likely secondary to underlying malignancy --COPD with emphysema Not in exacerbation Continue with inhaled bronchodilators --History of MAC --Metastatic small cell lung cancer Has been started on chemotherapy Following up with oncology -- Overall prognosis of the patient is guarded Plan: Recommend Mucinex with flutter valve along with hypertonic saline Continue with inhaled bronchodilators Patient has tried multiple inhalers in the past but she has not benefited from it He has found benefit from nebulizer in the hospital. Can consider discharging the patient on Brovana/formoterol and budesonide 250 mcg twice daily nebulized along with as needed albuterol Patient is agreeable to do thoracentesis after talking with oncology. Risk and benefit of the procedure explained the patient in depth Consent signed, witnessed and put in the chart Case was discussed with Dr. Toth Please note the above document was generated using voice recognition software. It may contain grammatical, syntax or spelling errors.Any formal questions or concerns about the content, text or information contained within the body of this dictation should be directly addressed to the provider for clarification. Admission and Anticipated Discharge Date Admission Date: January 11, 2023 Subjective Patient seen and examined at bedside. No acute distress, no adverse events overnight Patient had a talk with oncologist and he is agreeable to thoracentesis today Overall he said he is feeling better when it comes to his breathing. Occasionally does get left-sided chest pain. The nebulizer treatment has not been helping him a lot Shortness of breath is improved Denies any nausea vomiting Fair appetite Able to bring up phlegm no hemoptysis Review of Systems 2 Review of Systems: All systems reviewed & are unremarkable except as noted in Subjective Physical Exam 2 Physical Exam: Constitutional: No acute distress, cachexia HEENT: EOMI, PERRLA Respiratory system: Decreased air entry bilaterally, more decreased on the left side, no wheeze, no rhonchi, mild crackles bilateral lower lobes CVS: S1-S2 positive, no murmurs or gallops Abdomen: Soft, nontender, nondistended, positive bowel sounds x4 Extremities: +2 pulses bilaterally radialis/ dorsalis pedis, no cyanosis, no edema Neuro: Awake alert oriented x3 Psych: Normal mood and affect G/U: No Gomez Skin: no rashes, warm and dry Lymphatic: no cervical or axillary lymphadenopathy Results & Data Results & Data Vital Signs (Past 12 Hours) Vital Signs Temp Pulse Resp BP Pulse Ox O2 Del Method 01/13/23 14:24 91 H 16 93 Room Air 01/13/23 11:44 102 H 18 93 Room Air 01/13/23 11:23 36.3 C L 104 H 19 150/88 H 95 Room Air 01/13/23 07:40 68 22 94 Room Air 01/13/23 07:26 36.5 C 93 H 16 155/87 H 94 Room Air 01/13/23 03:10 36.8 C 96 H 18 125/82 96 Room Air Laboratory Results 01/13/23 05:32 01/13/23 05:32 PG Care Time/CCT Total # of Minutes Spent Total Time Spent with Patient: Total time spent is greater than 50% in coordination of care (as documented) at patient's floor/unit and/or counseling patient: Coding Level of Care Code 78901 SUB INP/OBS CARE 3/50MIN Diagnoses Small cell lung cancer C34.90 Chest pain R07.9 Chest pain type: unspecified COPD (chronic obstructive pulmonary disease) J44.1 COPD type: COPD with acute exacerbation Lung mass R91.8 Mycobacterium avium complex A31.[address] R93.89 Pleural effusion J90
--- NOTE | 2023-01-13 17:10 | Procedure Note ---
Procedure Note Date of Service January 13, 2023 Note Procedure: Diagnostic therapeutic ultrasound-guided catheter thoracentesis Healthcare Facility Administrator: Dr. Lillian Lozoya Indication: Left pleural effusion Consent: Signed by patient and verified with timeout prior to procedure Anesthesia: 1% lidocaine without epinephrine local. Procedure: Consent was verified and timeout performed. Appropriate imaging studies were reviewed prior to the procedure. Patient was placed in a seated position and limited thoracic ultrasound was performed of the left chest. See separate imaging. Appropriate site above the diaphragm for thoracentesis was selected. The skin was prepped and draped in normal sterile fashion. Lidocaine was used for local analgesia. Fluid was aspirated via the finder needle. A small skin tramaine was made with the scalpel and the catheter over the needle apparatus was advanced over the rib into the pleural space. Using the syringe one-way valve system, a total of 950 mL's of serous fluid was removed. The catheter was removed and observed to be intact. A sterile dressing was applied. Post procedure chest x-ray was ordered. Fluid was sent for labs, culture and cytology. Complications: None Blood loss: Less than 1 cc Coding CPT Codes Pulmonary/Thoracic - Pulmonary and Thoracic: 31685 Thoracentesis w imaging ([id number]) [facility] [place] Codes (Charges) Pulmonary/Thoracic Procedure 1: Pulmonary and Thoracic: 36253 Thoracentesis w imaging
--- NOTE | 2023-01-13 17:54 | XRay Report ---
SINGLE VIEW CHEST CLINICAL HISTORY: Status post thoracentesis. FINDINGS: An AP, portable, upright chest radiograph is compared to chest x-ray and chest CT dated . The cardiomediastinal silhouette is unremarkable. Emphysema and chronic interstitial thicken ing is similar to previous. A left perihilar/upper lobe mass lesion is again noted with atelectasis o f the left upper lung. There is a small residual left pleural effusion left basilar opacity. This has decreased in size from previous there No pneumothorax is seen. The right lung is grossly clear. The skeletal structures are osteopenic. The bony thorax is grossly intact. Residual enteric contrast is n oted in the colon. IMPRESSION: 1. No pneumothorax is clearly identified status post thoracentesis. 2. Emphysema and left perihilar/upper lobe mass lesion as above. This is similar to previous. 3. There is a small residual left pleural effusion with left basilar opacities. The effusion has decr eased in size from previous. 4. The right lung is grossly clear. ACT 112: Negative or not required by law. Electronically signed by: Fran Mccormick M.D. 01/13/2023 5:52 PM
[2023-01-13 18:06] LABS: Total Protein Pleural Fluid 3.6 gm/dl
[2023-01-13 18:11] LABS: Albumin Level 3.2 gm/dl (3.4-5.0); Bilirubin,Total 0.2 mg/dl (0.2-1.0); Total Protein 6.4 gm/dl (6.0-8.3)
[2023-01-13] MEDS ORDERED: COUGH DROP (SUGAR FREE) LOZ 24 LOZ/1 BOX BUCCAL PRN (19:00)
[2023-01-13 19:01] LABS: Appearance Pleural Fluid Clear; Color Pleural Fluid Pale Yellow; Eosinophils, Fluid 3 %; Lymphocytes, Fluid 11 %; Mono,Macrophage,Mesothelial 80 %; Neutrophils, Fluid 6 %; RBC Pleural Fluid Auto < 2000 /uL; Source Pleural Fluid Left Lung; WBC Pleural Fluid Auto 636 /uL
[2023-01-14] MEDS: ALBUT/IPRATROP 3MG/0.5MG NEB 3 ML VIAL NEB SCH ×6 (03:02→23:22)
[2023-01-14] MEDS: ACETAMINOPHEN 500 MG TAB PO SCH ×3 (06:13→20:49)
[2023-01-14] MEDS: guaiFENesin/CODEINE 100MG/10MG 5ML UDC PO PRN ×2 (06:13→12:42)
[2023-01-14] MEDS: SODIUM CHLOR 7% 4 ML NEB NEB SCH ×2 (07:24→19:58)
[2023-01-14] MEDS: UMECLIDINIUM/VILANTEROL 62.5/25MCG 7 PUFFS/INHALER INH SCH (08:43)
[2023-01-14] MEDS: guaiFENesin 600 MG TABCR PO SCH ×2 (08:43→20:49)
[2023-01-14 09:30] LABS: Hematocrit (blood only) 30.2 % (42.0-52.0); Hemoglobin 10.1 g/dl (14.0-18.0); Mean Corpuscular Hemoglobin 28.4 pg (25.0-34.0); Mean Corpuscular Hgb Conc 33.4 g/dL (32.0-36.0); Mean Corpuscular Volume 84.8 fL (80.0-100.0); Mean Platelet Volume 9.6 fL (9.4-12.4); Platelet Count 292 K/uL (130-400); RDW Coefficient of Variation 17.2 % (11.5-14.5); RDW Standard Deviation 53.1 fL (36.4-46.3); Red Blood Count 3.56 M/uL (4.70-6.10); White Blood Count 1.66 K/ul (4.8-10.8)
[2023-01-14 09:48] LABS: Basophils # (auto) 0.03 K/uL (0.00-0.20); Basophils % (auto) 1.8 %; Eosinophils # (auto) 0.01 K/uL (0.00-0.50); Eosinophils % (auto) 0.6 %; Immature Granulocytes # (auto) 0.01 K/uL (0.01-0.20); Immature Granulocytes % (auto) 0.6 %; Lymphocytes # (auto) 0.37 K/uL (1.20-3.40); Lymphocytes % (auto) 22.3 %; Monocytes # (auto) 0.45 K/uL (0.11-0.59); Monocytes % (auto) 27.1 %; Neutrophils # (auto) 0.79 K/uL (1.40-6.50); Neutrophils % (auto) 47.6 %
[2023-01-14 09:49] LABS: BUN Creatinine Ratio 23.8 (10-20); Calcium 8.8 mg/dl (8.6-10.3); Est GFR (African American) 143.6 ml/min; Est GFR (Non-African American) 123.9 ml/min; Potassium 3.5 mmol/L (3.5-5.1)
--- NOTE | 2023-01-14 11:04 | Pulmonology Progress Note ---
Date of Service January 14, 2023 Assessment & Plan (1) Small cell lung cancer: (2) Chest pain: Chest pain type: unspecified Qualified Code(s): R07.9 - Chest pain, unspecified (3) COPD (chronic obstructive pulmonary disease): COPD type: COPD with acute exacerbation Qualified Code(s): J44.1 - Chronic obstructive pulmonary disease with (acute) exacerbation (4) Lung mass: (5) Mycobacterium avium complex: (6) Abnormal chest CT: (7) Pleural effusion: Plan CT chest 01/11/2023 personally reviewed: Right apical 9 mm nodularity, centrilobular emphysema 8 cm x 6.9 cm hilar mass with obstructive atelectasis of the left upper lobe Minimal tree-in-bud opacities in the left lower lobe Moderate left-sided pleural effusion --Left-sided pleural effusion Likely secondary to underlying malignancy S/p thoracentesis 01/13/2023, 950 mL serous fluid removed, exudative, monocytic Pleural fluid: LDH 218, protein 3.6, glucose 93, pH 7.45 Serum: LDH 192, protein 6.4 --COPD with emphysema Not in exacerbation Continue with inhaled bronchodilators --History of MAC --Metastatic small cell lung cancer Has been started on chemotherapy Following up with oncology -- Overall prognosis of the patient is guarded Plan: Recommend Mucinex with flutter valve along with hypertonic saline Continue with inhaled bronchodilators Patient has tried multiple inhalers in the past but she has not benefited from it He has found benefit from nebulizer in the hospital. Can consider discharging the patient on Brovana/formoterol and budesonide 250 mcg twice daily nebulized along with as needed albuterol Follow-up cytology No further recommendation from pulmonary perspective, we will sign off Please call directly with any questions Case was discussed with Dr. Toth Please note the above document was generated using voice recognition software. It may contain grammatical, syntax or spelling errors.Any formal questions or concerns about the content, text or information contained within the body of this dictation should be directly addressed to the provider for clarification. Admission and Anticipated Discharge Date Admission Date: January 11, 2023 Subjective Patient seen and examined at bedside. No acute distress, no adverse events overnight. Overall he says he is feeling better compared to yesterday Still has occasional chest pain on and off. Coughing up clear phlegm. No hemoptysis Fair appetite Review of Systems 2 Review of Systems: All systems reviewed & are unremarkable except as noted in Subjective Physical Exam 2 Physical Exam: Constitutional: No acute distress, cachexia HEENT: EOMI, PERRLA Respiratory system: Decreased air entry bilaterally, no wheeze, no rhonchi, positive crackles bilateral lower lobes CVS: S1-S2 positive, no murmurs or gallops Abdomen: Soft, nontender, nondistended, positive bowel sounds x4 Extremities: +2 pulses bilaterally radialis/ dorsalis pedis, no cyanosis, no edema Neuro: Awake alert oriented x3 Psych: Normal mood and affect G/U: No Gomez Skin: no rashes, warm and dry Lymphatic: no cervical or axillary lymphadenopathy Results & Data Results & Data Vital Signs (Past 12 Hours) Vital Signs Temp Pulse Pulse Resp BP Pulse Ox O2 Del Method 01/14/23 08:00 Room Air 01/14/23 08:00 98 H 01/14/23 07:50 37.1 C 102 H 16 152/85 H 96 Room Air 01/14/23 07:28 105 H 20 97 Room Air 01/14/23 03:20 36.9 C 118 H 19 145/92 H 93 Room Air 01/14/23 03:02 99 H 16 96 Room Air 01/13/23 23:20 103 H 16 94 Room Air 01/13/23 23:08 36.3 C L 109 H 18 149/89 H 93 Room Air Laboratory Results 01/14/23 09:10 01/14/23 09:10 PG Care Time/CCT Total # of Minutes Spent Total Time Spent with Patient: Total time spent is greater than 50% in coordination of care (as documented) at patient's floor/unit and/or counseling patient: Coding Level of Care Code 40432 SUB INP/OBS CARE 2/35MIN Diagnoses Small cell lung cancer C34.90 Chest pain R07.9 Chest pain type: unspecified COPD (chronic obstructive pulmonary disease) J44.1 COPD type: COPD with acute exacerbation Lung mass R91.8 Mycobacterium avium complex A31.[address] R93.89 Pleural effusion J90
--- NOTE | 2023-01-14 11:35 | XRay Report ---
SINGLE VIEW CHEST CLINICAL HISTORY: Lung mass. Pleural effusion. Recent thoracentesis. FINDINGS: An AP, portable, upright chest radiograph is compared to study dated 01/13/2023 and correla kimo with chest CT dated 01/11/2023. The cardiomediastinal silhouette is unremarkable. Emphysema and c hronic interstitial thickening is similar to previous. A left perihilar/upper lobe mass lesion is aga in noted with atelectasis of the left upper lung. There is a small residual left pleural effusion lef t basilar opacities. This is unchanged from yesterday. No pneumothorax is seen. The right lung is emmanuel ssly clear. The skeletal structures are osteopenic. The bony thorax is grossly intact. Residual enter ic contrast is noted in the colon. IMPRESSION: 1. Small residual left pleural effusion with left basilar opacities. This is unchanged from yesterday . 2. Emphysema and left perihilar/upper lobe mass lesion as above. This is similar to previous. 3. The right lung is grossly clear. ACT 112: Negative or not required by law. Electronically signed by: Fran Mccormick M.D. 01/14/2023 11:33 AM
--- NOTE | 2023-01-14 18:34 | Hospitalist Progress Note ---
Date of Service January 14, 2023 Assessment & Plan (1) Small cell lung cancer: (2) Anemia: (3) COPD (chronic obstructive pulmonary disease): (4) Malnutrition: (5) Mass of right inguinal region: (6) Mycobacterium avium complex: (7) Tobacco use disorder: Plan per Dr. Fritz's notes with addendum: Mr. Johnnie Romero is a 62 y/o male with moderate COPD, history tobacco abuse, HTN, hx torsades de pointes due to electrolyte imbalance, and RLE atherosclerosis and claudication who was admitted on 01/11 due to chest pain. Patient recently admitted on 12/18 from outpatient pulmonology with tachycardia and borderline hypoxia. He has a known left hilar mass, which was enlarging on most recent outpatient CT. He followed up with pulmonology today who noted he has been progressively worsening overall and referred him to the ED for evaluation and possible admission. In the ED, he was placed on 2L of O2 and given IVF as well as empiric Zosyn, ultimately admitted on 12/18 for concerns of post obstructive pneumonia . OP biopsy of mass was anticipated; however, patient underwent FNA of lymph node in right inguinal area on 12/21. Pathology results consistent with metastatic small cell carcinoma. Patient was discharged with home health and OP chemotherapy. Chemoimmunotherapy started last week. Patient now with moderate left side effusion and associated ateletecasis. Possibility for thoracentesis tomorrow with Pulmonary. #Non-Cardiac pain #Left Pleural Effusion with atelectasis Undergoing chemoimmunotherapy for SCC, experiencing sharp/pleuritic chest pain yesterday with SOB CT Chest:large pleural effusion, metastatic lesion on left kidney, hepatic lesions (few slightly decreased in size), metastatic lymphadenopathy in A/P, thickening of anus with enhancement Chest XRAY notes possible L pneumothorax, L pleural effusion and L perihilar mass Abnormal EKG, but no acute ischemia; ECHO hyperdynamic, no wall motion abnormalities Biofire negative DVT doppler negative Pulmonary on consult: recommending Mucinex and flutter valve Continue inhalers Lovenox held for tenative thoracentesis tomorrow, 01/13 Symptom control with cough suppression and pain mgmt 01/14 Status post paracentesis draining 650 cc of fluid Cultures and pathology pending Continue albuterol nebs, hypertonic saline nebs, Mucinex, Anoro Ellipta Per pulmonology service notes, patient may be discharged on Brovana and Perforomist nebs as well #Metastatic Small Cell Lung Cancer -As above CT findings with liver, kidney, ?anus involvement with metastatic lymphadenopathy #COPD #Emphysema on imaging #Hx of Mycobacterium avium complex infection noted per records, sputum Cx growth in September 2022 No exacerbation, no indication to continue steroids Continue bronchodilators Another exacerbation Continue Anoro Ellipta #Debris in trachea, ?aspiration -Speech, video swallow 01/13 Status post video swallow: Mild pharyngeal dysphagia Regular diet, aspiration precautions, oral hygiene #Chronic Hyponatremia Chronic, stable, POA Encourage PO intake Trend BMP Sodium 132 #Right Inguinal Mass Metastatic lymphadenopathy progressed since last imaging, predominately within the right inguinal distribution per CT image 01/10; biopsied last admission +SCC #Chronic Normocytic Anemia Hgb of 11, stable B12, Folate WNL, labs suggestive of chronic disease last admission #Tobacco use disorder ongoing smoker encourage cessation #Severe protein calorie malnutrition Related to cancer Regular diet and nutrition consult. Encourage intake as tolerated CODE STATUS: Full code per discussion with pt on admission DVT prophylaxis: Lovenox SQ (held iso possible thora) Diet: Regular Dispo: Anticipate discharge to home when medically stable Admission and Anticipated Discharge Date Admission Date: January 11, 2023 Subjective Follow-up for left-sided pleural effusion, lung cancer, etc. Seen resting in bed, comfortable, not in distress States he feels improved compared to yesterday Breathing is improving, does have left-sided pain on the thoracentesis site Minimal cough, no fevers or chills No other new symptoms Review of Systems Review of Systems: all noted and negative except for above Physical Exam Physical Exam: General- oriented x 3, not in distress, speaks in sentences with no effort or accessory muscle use Eyes- anicteric Neck- no JVD Lungs- clear breath sounds bilaterally, no crackles or wheezing Heart- normal rate, regular rhythm; no murmurs Abdomen- normal bowel sounds, nondistended, soft, nontender Extremities- no pretibial edema, no calf tenderness Neuro- alert, oriented x 3; no gross focal neurologic deficits Skin- warm & dry Results & Data Results & Data Vital Signs (Past 12 Hours) Vital Signs Temp Pulse Pulse Resp BP Pulse Ox O2 Del Method 01/14/23 16:45 36.9 C 106 H 18 126/83 97 Room Air 01/14/23 16:21 99 H 01/14/23 14:05 105 H 18 98 Room Air 01/14/23 11:49 36.3 C L 108 H 18 129/85 97 Room Air 01/14/23 11:05 103 H 18 96 Room Air 01/14/23 08:00 Room Air 01/14/23 08:00 98 H 01/14/23 07:50 37.1 C 102 H 16 152/85 H 96 Room Air 01/14/23 07:28 105 H 20 97 Room Air all noted and reviewed including below (3) COPD (chronic obstructive pulmonary disease) COPD type: COPD with acute exacerbation Qualified Code(s): J44.1 - Chronic obstructive pulmonary disease with (acute) exacerbation (4) Malnutrition Malnutrition type: protein-calorie malnutrition Protein-calorie malnutrition severity: severe Qualified Code(s): E43 - Unspecified severe protein-calorie malnutrition
[2023-01-15] MEDS: ALBUT/IPRATROP 3MG/0.5MG NEB 3 ML VIAL NEB SCH ×6 (04:10→23:46)
[2023-01-15] MEDS: ACETAMINOPHEN 500 MG TAB PO SCH ×3 (05:56→20:42)
[2023-01-15 06:07] LABS: Hematocrit (blood only) 31.1 % (42.0-52.0); Mean Corpuscular Hemoglobin 27.9 pg (25.0-34.0); Mean Corpuscular Hgb Conc 32.2 g/dL (32.0-36.0); Mean Corpuscular Volume 86.6 fL (80.0-100.0); Mean Platelet Volume 9.5 fL (9.4-12.4); Platelet Count 289 K/uL (130-400); RDW Coefficient of Variation 17.2 % (11.5-14.5); Red Blood Count 3.59 M/uL (4.70-6.10)
[2023-01-15 06:24] LABS: BUN Creatinine Ratio 26.8 (10-20); Calcium 8.7 mg/dl (8.6-10.3); Creatinine Clr Calc Pharmacy 113.2 ml/min; Est GFR (Non-African American) 125.1 ml/min; Potassium 3.9 mmol/L (3.5-5.1)
[2023-01-15 06:38] LABS: Basophils # (auto) 0.03 K/uL (0.00-0.20); Basophils % (auto) 1.9 %; Lymphocytes # (auto) 0.47 K/uL (1.20-3.40); Lymphocytes % (auto) 29.4 %; Monocytes # (auto) 0.48 K/uL (0.11-0.59); Neutrophils # (auto) 0.62 K/uL (1.40-6.50); Neutrophils % (auto) 38.7 %
[2023-01-15] MEDS: SODIUM CHLOR 7% 4 ML NEB NEB SCH ×2 (06:58→20:00)
[2023-01-15] MEDS: UMECLIDINIUM/VILANTEROL 62.5/25MCG 7 PUFFS/INHALER INH SCH (09:22)
[2023-01-15] MEDS: guaiFENesin 600 MG TABCR PO SCH ×2 (09:23→20:41)
[2023-01-15] MEDS: amLODIPine BESYLATE 5 MG TAB PO SCH (10:24)
[2023-01-15] MEDS: FILGRASTIM 480 MCG/1.6 ML VIAL SC SCH (12:54)
--- NOTE | 2023-01-15 14:10 | Hospitalist Progress Note ---
Date of Service January 15, 2023 Assessment & Plan (1) Small cell lung cancer: (2) Anemia: (3) COPD (chronic obstructive pulmonary disease): (4) Malnutrition: (5) Mass of right inguinal region: (6) Mycobacterium avium complex: (7) Tobacco use disorder: Plan per Dr. Fritz's notes with addendum: Mr. Johnnie Romero is a 62 y/o male with moderate COPD, history tobacco abuse, HTN, hx torsades de pointes due to electrolyte imbalance, and RLE atherosclerosis and claudication who was admitted on 01/11 due to chest pain. Patient recently admitted on 12/18 from outpatient pulmonology with tachycardia and borderline hypoxia. He has a known left hilar mass, which was enlarging on most recent outpatient CT. He followed up with pulmonology today who noted he has been progressively worsening overall and referred him to the ED for evaluation and possible admission. In the ED, he was placed on 2L of O2 and given IVF as well as empiric Zosyn, ultimately admitted on 12/18 for concerns of post obstructive pneumonia . OP biopsy of mass was anticipated; however, patient underwent FNA of lymph node in right inguinal area on 12/21. Pathology results consistent with metastatic small cell carcinoma. Patient was discharged with home health and OP chemotherapy. Chemoimmunotherapy started last week. Patient now with moderate left side effusion and associated ateletecasis. Possibility for thoracentesis tomorrow with Pulmonary. #Non-Cardiac pain #Left Pleural Effusion with atelectasis Undergoing chemoimmunotherapy for SCC, experiencing sharp/pleuritic chest pain yesterday with SOB CT Chest:large pleural effusion, metastatic lesion on left kidney, hepatic lesions (few slightly decreased in size), metastatic lymphadenopathy in A/P, thickening of anus with enhancement Chest XRAY notes possible L pneumothorax, L pleural effusion and L perihilar mass Abnormal EKG, but no acute ischemia; ECHO hyperdynamic, no wall motion abnormalities Biofire negative DVT doppler negative Pulmonary on consult: recommending Mucinex and flutter valve Continue inhalers Lovenox held for tenative thoracentesis tomorrow, 01/13 Symptom control with cough suppression and pain mgmt 01/14 Status post paracentesis draining 650 cc of fluid 01/15 Pleural fluid culture: Negative so far Cytology: Pending Stable Continue albuterol nebs, hypertonic saline nebs, Mucinex, Anoro Ellipta Per pulmonology service notes, patient may be discharged on Brovana and Pe rforomist nebs as well Neutropenia - discussed with Dr. Chantel Oviedo ordered #Metastatic Small Cell Lung Cancer -As above CT findings with liver, kidney, ?anus involvement with metastatic lymphadenopathy #COPD #Emphysema on imaging #Hx of Mycobacterium avium complex infection noted per records, sputum Cx growth in September 2022 No exacerbation, no indication to continue steroids Continue bronchodilators Another exacerbation Continue Anoro Ellipta #Debris in trachea, ?aspiration -Speech, video swallow 01/13 Status post video swallow: Mild pharyngeal dysphagia Regular diet, aspiration precautions, oral hygiene #Chronic Hyponatremia Chronic, stable, POA Encourage PO intake Trend BMP Sodium 132 #Right Inguinal Mass Metastatic lymphadenopathy progressed since last imaging, predominately within the right inguinal distribution per CT image 01/10; biopsied last admission +SCC #Chronic Normocytic Anemia Hgb of 11, stable B12, Folate WNL, labs suggestive of chronic disease last admission #Tobacco use disorder ongoing smoker encourage cessation #Severe protein calorie malnutrition Related to cancer Regular diet and nutrition consult. Encourage intake as tolerated CODE STATUS: Full code per discussion with pt on admission DVT prophylaxis: Lovenox SQ (held iso possible thora) Diet: Regular Dispo: Anticipate discharge to home when medically stable Admission and Anticipated Discharge Date Admission Date: January 11, 2023 Subjective ff up for pleural effusion, etc seen resting in bed, comfortable breathing has improved minimal discomfort on the L thoracentesis site no cough, fever/chills no other symptoms Review of Systems Review of Systems: all noted and negative except for above Physical Exam Physical Exam: General- oriented x 3, not in distress, speaks in sentences with no effort or accessory muscle use Eyes- anicteric Neck- no JVD Lungs- clear breath sounds bilaterally, no rales/wheezes Heart- normal rate, regular rhythm; no murmurs Abdomen- normal bowel sounds, nondistended, soft, nontender Extremities- no pretibial edema, no calf tenderness Neuro- alert, oriented x 3; no gross focal neurologic deficits Skin- warm & dry Results & Data Results & Data Vital Signs (Past 12 Hours) Vital Signs Temp Pulse Pulse Pulse Resp Resp Resp 01/15/23 12:07 37.1 C 110 H 20 01/15/23 10:17 112 H 17 01/15/23 09:10 138 H 130 H 24 18 12/01/23 08:00 01/15/23 07:00 36.7 C 107 H 18 01/15/23 06:58 100 H 18 01/15/23 04:10 84 19 01/15/23 03:00 36.5 C 86 16 BP Pulse Ox Pulse Ox Pulse Ox O2 Del Method FiO2 01/15/23 12:07 144/88 H 97 Room Air 01/15/23 10:17 95 Room Air 21 01/15/23 09:10 92 93 01/15/23 08:00 Room Air 01/15/23 07:00 160/92 H 94 Room Air 01/15/23 06:58 96 Room Air 01/15/23 04:10 97 Room Air 01/15/23 03:00 157/92 H 95 Room Air all noted and reviewed including below (3) COPD (chronic obstructive pulmonary disease) COPD type: COPD with acute exacerbation Qualified Code(s): J44.1 - Chronic obstructive pulmonary disease with (acute) exacerbation (4) Malnutrition Malnutrition type: protein-calorie malnutrition Protein-calorie malnutrition severity: severe Qualified Code(s): E43 - Unspecified severe protein-calorie malnutrition
[2023-01-15] MEDS: guaiFENesin/CODEINE 100MG/10MG 5ML UDC PO PRN (19:45)
[2023-01-15 20:24] LABS: BUN Creatinine Ratio 30.8 (10-20); Calcium 8.8 mg/dl (8.6-10.3); Est GFR (Non-African American) 127.7 ml/min; Potassium 3.8 mmol/L (3.5-5.1)
[2023-01-16] MEDS: guaiFENesin/CODEINE 100MG/10MG 5ML UDC PO PRN (03:13)
[2023-01-16] MEDS: ALBUT/IPRATROP 3MG/0.5MG NEB 3 ML VIAL NEB SCH ×3 (03:51→11:24)
[2023-01-16] MEDS: ACETAMINOPHEN 500 MG TAB PO SCH (05:52)
[2023-01-16 07:18] LABS: Hematocrit (blood only) 30.1 % (42.0-52.0); Hemoglobin 9.8 g/dl (14.0-18.0); Mean Corpuscular Hemoglobin 28.2 pg (25.0-34.0); Mean Corpuscular Hgb Conc 32.6 g/dL (32.0-36.0); Mean Corpuscular Volume 86.5 fL (80.0-100.0); Platelet Count 352 K/uL (130-400); RDW Coefficient of Variation 17.3 % (11.5-14.5); RDW Standard Deviation 54.4 fL (36.4-46.3); Red Blood Count 3.48 M/uL (4.70-6.10); White Blood Count 2.48 K/ul (4.8-10.8)
[2023-01-16 07:43] LABS: ALC (manual) 0.82 K/uL (1.2-3.4); ANC (manual) 0.89 K/uL (1.4-6.5); Basophils # (manual) 0.07 K/uL (0-0.2); Basophils % (manual) 3 %; Blast # (manual) 0.05 K/uL (0-0); Blast Cells % (manual) 2 %; Eosinophils # (manual) 0.02 K/uL (0-0.50); Eosinophils % (manual) 1 %; Lymphocytes # (manual) 0.82 K/uL (1.2-3.4); Lymphocytes % (manual) 33 %; Metamyelocytes # (manual) 0.02 K/uL (0-0); Metamyelocytes % (manual) 1 %; Monocytes % (manual) 24 %; Neutrophils # (manual) 0.89 K/uL (1.40-6.50); Neutrophils % (manual) 36 %; Polychromasia 1+; Spherocytes 1+
[2023-01-16] MEDS: SODIUM CHLOR 7% 4 ML NEB NEB SCH (08:01)
[2023-01-16] MEDS: UMECLIDINIUM/VILANTEROL 62.5/25MCG 7 PUFFS/INHALER INH SCH (08:15)
[2023-01-16] MEDS: amLODIPine BESYLATE 5 MG TAB PO SCH (08:16)
[2023-01-16] MEDS: guaiFENesin 600 MG TABCR PO SCH (08:16)
[2023-01-16] MEDS: FILGRASTIM 480 MCG/1.6 ML VIAL SC SCH (08:19)
[2023-01-16] MEDS ORDERED: UMECLIDINIUM/VILANTEROL 62.5/25MCG 7 PUFFS/INHALER INH SCH ×2 (14:00)
--- NOTE | 2023-01-16 18:34 | Discharge Summary ---
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 Hx obtained from pt. States that he started having severe left sided chest pain yesterday, associated with SOB. Pain is unrelenting, does not radiate anywhere. Known Hx of metastatic small cell lung cancer, states that he received 3 days of chemotherapy last week before Thanksgiving. Does not use oxygen at baseline. Notes that he has a right inguinal mass that has been getting bigger since the biopsy, now very tender with associated RLQ abdominal pain. States it now makes it hard to walk for him. States that he has chronically been coughing up white sputum but not too increased from baseline. Denies palpitations. States that he is still smoking, though not as much. ED Course: chest xray with possible L pneumothorax, pleural effusion, known mass. CT chest pending, received duoneb, IV Solu-Medrol 40mg, IV Dilaudid Admission Exam Per Admitting Provider General: Alert, oriented. Having a breathing treatment Skin: No noted rashes or bruises Psych: Appropriate mood and affect Neuro: No gross deficits HEENT: NC/AT Chest: Nontender to palpation. CV: RRR Resp: Breath sounds with wheezes bilaterally, receiving a breathing treatment Abdomen: Soft, tender in RLQ, noted red tender erythematous mass in right inguinal area Extremities: No edema in lower extremities bilaterally. Principal Dx & Hospital Course #1 = Principal Diagnosis (1) Small cell lung cancer: (2) Anemia: (3) COPD (chronic obstructive pulmonary disease): (4) Malnutrition: (5) Mass of right inguinal region: (6) Mycobacterium avium complex: (7) Tobacco use disorder: Plan per Dr. Fritz's notes with addendum: Mr. Johnnie Romero is a 62 y/o male with moderate COPD, history tobacco abuse, HTN, hx torsades de pointes due to electrolyte imbalance, and RLE atherosclerosis and claudication who was admitted on 01/11 due to chest pain. Patient recently admitted on 12/18 from outpatient pulmonology with tachycardia and borderline hypoxia. He has a known left hilar mass, which was enlarging on most recent outpatient CT. He followed up with pulmonology today who noted he has been progressively worsening overall and referred him to the ED for evaluation and possible admission. In the ED, he was placed on 2L of O2 and given IVF as well as empiric Zosyn, ultimately admitted on 12/18 for concerns of post obstructive pneumonia . OP biopsy of mass was anticipated; however, patient underwent FNA of lymph node in right inguinal area on 12/21. Pathology results consistent with metastatic small cell carcinoma. Patient was discharged with home health and OP chemotherapy. Chemoimmunotherapy started last week. Patient now with moderate left side effusion and associated ateletecasis. Possibility for thoracentesis tomorrow with Pulmonary. #Non-Cardiac pain #Left Pleural Effusion with atelectasis Undergoing chemoimmunotherapy for SCC, experiencing sharp/pleuritic chest pain yesterday with SOB CT Chest:large pleural effusion, metastatic lesion on left kidney, hepatic lesions (few slightly decreased in size), metastatic lymphadenopathy in A/P, thickening of anus with enhancement Chest XRAY notes possible L pneumothorax, L pleural effusion and L perihilar mass Abnormal EKG, but no acute ischemia; ECHO hyperdynamic, no wall motion abnormalities Biofire negative DVT doppler negative Pulmonary on consult: recommending Mucinex and flutter valve 01/14 Status post paracentesis draining 650 cc of fluid 01/15 Pleural fluid culture: Negative so far Cytology: Pending Stable given albuterol nebs, hypertonic saline nebs, Mucinex, Anoro Ellipta Per pulmonology service notes, patient may be discharged on Brovana and Perforomist nebs Neutropenia - discussed with Dr. Golden - Filgastrim ordered - ANC improved from 0.6, now 0.8 -Received 2 doses of filgrastim -Okay for discharge per oncologist, repeat CBC in 1 week #Metastatic Small Cell Lung Cancer -As above CT findings with liver, kidney, ?anus involvement with metastatic lymphadenopathy #COPD #Emphysema on imaging #Hx of Mycobacterium avium complex infection noted per records, sputum Cx growth in September 2022 No exacerbation, no indication to continue steroids Discharged on Brovana and budesonide nebs twice daily #Debris in trachea, ?aspiration -Speech, video swallow 01/13 Status post video swallow: Mild pharyngeal dysphagia Regular diet, aspiration precautions, oral hygiene #Chronic Hyponatremia Chronic, stable, POA Encourage PO intake Sodium 132 #Right Inguinal Mass Metastatic lymphadenopathy progressed since last imaging, predominately within the right inguinal distribution per CT image 01/10; biopsied last admission +SCC #Chronic Normocytic Anemia Hgb of 11, stable B12, Folate WNL, labs suggestive of chronic disease last admission #Tobacco use disorder ongoing smoker encourage cessation #Severe protein calorie malnutrition Related to cancer Regular diet and nutrition consult. Encourage intake as tolerated CODE STATUS: Full code per discussion with pt on admission DVT prophylaxis: Lovenox SQ (held iso possible thora) Diet: Regular Dispo: Discharge to home, PCP in 1 week, oncologist following Discharge Exam General- oriented x 3, not in distress, speaks in sentences with no effort or accessory muscle use Eyes- anicteric Neck- no JVD Lungs- clear breath sounds bilaterally, no rales/wheezes Heart- normal rate, regular rhythm; no murmurs Abdomen- normal bowel sounds, nondistended, soft, nontender Extremities- no pretibial edema, no calf tenderness Neuro- alert, oriented x 3; no gross focal neurologic deficits Skin- warm & dry Updated Medication List Medication Instructions Recorded Confirmed Type albuterol sulfate 90 mcg/actuation 1 inh inhalation Q6H PRN shortness 12/25/22 01/11/23 Rx aerosol inhaler of breath or wheezing #8.5 grams amlodipine 5 mg tablet (Norvasc) 5 mg PO QAM 30 days #30 tabs 01/16/23 Rx arformoterol 15 mcg/2 mL solution 2 ml inhalation BID 30 days #120 mL 01/16/23 Rx for nebulization (Brovana) budesonide 0.5 mg/2 mL suspension 0.5 mg (2 mL) inhalation BID #60 mL 01/16/23 Rx for nebulization (Pulmicort) codeine 10 mg-guaifenesin 100 mg/5 5 ml PO Q6H PRN cough #120 mL 12/02/23 Rx mL oral liquid (Guaifenesin AC) guaifenesin 600 mg tablet, 600 mg PO Q12 7 days #14 tabs 01/16/23 Rx extended release 12 hr (Mucinex) Hospital Stay Data Consultations 01/11/23 11:48 ED Decision to Admit Stat 01/11/23 12:41 Consult Pulmonology Routine Diagnostic Imagining Performed Chest CT 01/11/23 11:54 CT SCAN OF THE CHEST WITHOUT IV CONTRAST CLINICAL HISTORY: Dyspnea. COMPARISON STUDY: Chest x-ray dated 01/11/2023. Chest CT dated 12/24/2022. TECHNIQUE: CT scan of the thorax was performed from the thoracic inlet to the upper abdomen. Images are reviewed in the axial, sagittal, and coronal planes. IV contrast was not administered for this examination as per the referring clinician. A dose lowering technique was utilized adhering to the principles of ALARA. FINDINGS: Thyroid: Imaged portions of the thyroid gland are normal in size and attenuation. Thoracic aorta: There is atherosclerotic calcification of thoracic aorta, which is normal in caliber and demonstrates standard 3-vessel arch anatomy. Heart: The heart is normal in size noting a small pericardial effusion. The coronary arteries are densely calcified. Lower neck: Mildly enlarged left supraclavicular nodes measure up to 1.3 cm in length as seen on image #26. Lungs and pleural spaces: Moderate emphysematous change is noted. A large left perihilar mass lesion with mediastinal invasion is again noted. This measures approximately 8 x 7 cm seen on images #107 encases the left hilar structures. A large paramediastinal component in the anterior left upper lobe measures approximately 4 x 3.5 cm as seen on image #80. There is segmental atelectasis in the left upper lobe There is a moderate left pleural effusion with atelectasis of the left lower lung. There is secretions/debris within the trachea. There is near-complete opacification of the left mainstem bronchus, with milder debris in the right. Ill-defined patchy opacities are seen throughout the left lung. A 9 mm right apical opacity on image #24 and a 7 mm right upper lobe opacity on image #81 are unchanged. Mediastinum: See above for discussion of a large mediastinal mass. An enlarged subcarinal node measures up to 13 mm in short axis. Jeana: Not well assessed without IV contrast. Axillae: There is no axillary lymphadenopathy. Upper abdomen: Multifocal hepatic metastatic disease is again noted. A 2.9 cm implant is again seen anterior to the left kidney on image #275. No adrenal lesion is seen. Skeletal structures: The skeletal structures appear osteopenic. Mild degenerative change is noted in lower cervical spine and at the thoracolumbar junction. No lytic or blastic bony lesions are seen. There are chronic/heel right-sided rib fractures. IMPRESSION: 1. Emphysema. 2. A large left perihilar mass with mediastinal extension and encasement of the left bronchovascular structures this is likely similar to 12/24/2022 examination. Aeration of the left lung has significantly improved from previous. 3. There is a large paramediastinal component of this lesion in the left upper lung. 4. Moderate left pleural effusion with left basilar atelectasis. 5. Layering debris is seen in the trachea and central airways, with near complete opacification of the left mainstem bronchus. Mild patchy/nodular airspace opacities are seen in the left lung which could represent pneumonia/aspiration pneumonitis. Clinical correlation will be required. 6. Multifocal hepatic metastatic disease and an implant anterior to the left kidney are again noted. 7. Subcentimeter right upper lobe nodular opacities are unchanged. 8. Additional findings as above. ACT 112: Negative or not required by law. Electronically signed by: Fran Mccormick M.D. 01/11/2023 1:58 PM Abdomen/Pelvis CT 01/11/23 12:[address] WITH IV CONTRAST CT DOSE: 560.58 mGy.cm HISTORY: Acute right lower quadrant abdominal pain. RLQ abd pain, enlarging painful inguinal lump TECHNIQUE: Multiaxial CT images of the abdomen and pelvis were performed following the IV administration of 90 cc of Optiray, A dose lowering technique was utilized adhering to the principles of ALARA. COMPARISON STUDY: Chest CT of same day, CT abdomen and pelvis 12/18/2022. FINDINGS: Increased size of the left pleural effusion with persistent left basilar consolidation. Lingular collapse is partially imaged. Persistent tree-in-bud nodules of the left lower lobe with mild dependent left lower lobe atelectasis. No free air. Unremarkable adrenal glands. Unremarkable pancreas. Metastatic lesion along the anterior medial margin of the left kidney on image 114 denoted measuring 2.9 x 2.2 cm, similar to prior. Multifocal hepatic metastatic disease redemonstrated. Index 3.0 cm lesion within the left hepatic lobe on image 104 previously measured 3.3 cm. Several of the lesions appear to be slightly decreased in size from prior including a 1.9 cm inferior right hepatic lobe lesion on image 152, previously 2.5 cm. Patent portal vein. No hydronephrosis. Mildly distended urinary bladder. Prostatomegaly. Atherosclerosis of the aorta. Metastatic lymph nodes within the abdomen and pelvis are again noted. This includes conglomerate right inguinal lymphadenopathy measuring up to 5.2 x 3.8 cm, previously 5.0 x 3.2 cm. A 2.0 x 1.7 cm right inguinal chain lymph node previously measured 1.3 x 1.2 cm. Additional pathologic perirectal lymph nodes include conglomerate lymph nodes measuring up to 3.0 x 1.7 cm on image 259 which are generally stable. 1.7 x 1.0 cm precaval lymph node on image 163 is stable. Duodenal diverticula. There is no bowel obstruction. Irregular thickening and enhancement within the anus again noted. Healing subacute right-sided rib fractures. No acute fracture identified. Mild fecal retention. Noninflamed chandler endix. 9 mm mesenteric nodule within the pelvis on image 223. Multifocal high- grade stenoses of the femoral arteries secondary to prominent atherosclerotic plaque. Chronic L5 pars defects with unchanged anterolisthesis. No new destructive bone lesions. IMPRESSION: 1. No bowel obstruction or pneumoperitoneum. 2. Increased size of the left pleural effusion with persistent left lower lobe tree-in-bud nodules and mucous plugging. Please refer to the chest CT of same day for additional thoracic findings. 3. Irregular thickening and enhancement of the anus is again noted suspicious for malignancy. 4. Metastatic lymphadenopathy, progressed within the right inguinal distribution. 5. Multifocal hepatic metastases appear stable to mildly decreased in size from prior. 6. Additional findings as above. ACT 112: Negative or not required by law. The above report was generated using voice recognition software. It may contain grammatical, syntax or spelling errors. Dictated: 01/11/2023 1:44 PM Transcribed: 01/11/2023 2:06 PM Garo [id number] [place]ion [id number] Electronically signed by: Trever Ellis M.D. 01/11/2023 3:33 PM Venous Doppler Study 01/11/23 19:51 Exam(s): US VENOUS BILATERAL LOWER EXTREMITIES EXAM: US Duplex Bilateral Lower Extremities Veins CLINICAL HISTORY: r/o DVT, elevated d-dimer. TECHNIQUE: Real-time duplex ultrasound scan of the bilateral lower extremity veins integrating B-mode two-dimensional vascular structure, Doppler spectral analysis, color flow Doppler imaging and compression. COMPARISON: No relevant prior studies available. FINDINGS: Right deep veins: Unremarkable. No DVT in the right common femoral, femoral, proximal deep femoral or popliteal veins. The veins demonstrate normal color flow, are normally compressible, with normal phasic flow and/or augmentation response. The interrogated calf veins are patent. Right superficial veins: Unremarkable. No thrombus in the saphenofemoral junction. Left deep veins: Unremarkable. No DVT in the left common femoral, femoral, proximal deep femoral or popliteal veins. The veins demonstrate normal color flow, are normally compressible, with normal phasic flow and/or augmentation response. The interrogated calf veins are patent. Left superficial veins: Unremarkable. No thrombus in the saphenofemoral junction. Soft tissues: There is a heterogeneously slightly hypoechoic ovoid structure in the right groin measuring 5.4 x 4.9 x 4 cm. Questionable minimal internal vascular flow. No popliteal cyst. IMPRESSION: 1. No evidence for deep vein thrombosis involving the bilateral lower extremities. 2. There is a heterogeneously slightly hypoechoic ovoid structure in the right groin measuring 5.4 x 4.9 x 4 cm. Questionable minimal internal vascular flow. Differential consideration includes subcutaneous hematoma with artifact on color flow imaging versus a poorly vascularized soft tissue mass. CT evaluation with contrast should provide additional information, as appropriate. Electronically signed by: Justin Avila MD 01/12/23 04:12 AM Videofluoroscopic Swallow 01/12/23 11:30 MODIFIED BARIUM SWALLOW CLINICAL HISTORY: r/o aspiration COMPARISON STUDY: None. FLUOROSCOPY TIME: 1.30 minutes. Ka, r: 5.54 mGy. TECHNIQUE: A modified barium swallow was performed in conjunction with Speech Pathology. The patient ingested varying consistencies of barium containing material. Video fluoroscopy was performed. FINDINGS: No tracheal aspiration was identified with thin liquids via spoon or cup. A small amount of tracheal aspiration with thin liquids by straw elicited a cough. There was no aspiration with nectar thick liquids, pudding or cracker and pudding consistencies. IMPRESSION: 1. Small amount of tracheal aspiration with thin liquids by straw. No aspiration with remainder of the consistencies. 2. Full recommendations by Speech pathology to follow. ACT 112: Negative or not required by law. Electronically signed by: Hung Bautista M.D. 01/12/2023 3:43 PM Chest X-Ray 01/14/23 11:02 SINGLE VIEW CHEST CLINICAL HISTORY: Lung mass. Pleural effusion. Recent thoracentesis. FINDINGS: An AP, portable, upright chest radiograph is compared to study dated 01/13/2023 and correlated with chest CT dated 01/11/2023. The cardiomediastinal silhouette is unremarkable. Emphysema and chronic interstitial thickening is similar to previous. A left perihilar/upper lobe mass lesion is again noted with atelectasis of the left upper lung. There is a small residual left pleural effusion left basilar opacities. This is unchanged from yesterday. No pneumothorax is seen. The right lung is grossly clear. The skeletal structures are osteopenic. The bony thorax is grossly intact. Residual enteric contrast is noted in the colon. IMPRESSION: 1. Small residual left pleural effusion with left basilar opacities. This is unchanged from yesterday. 2. Emphysema and left perihilar/upper lobe mass lesion as above. This is similar to previous. 3. The right lung is grossly clear. ACT 112: Negative or not required by law. Electronically signed by: rFan Mccormick M.D. 01/14/2023 11:33 AM Pending Results Patient Have Any Pending Studies at Discharge: Yes Discharge Instructions Given to Patient (Per Discharging Provider) PLEASE REFER TO YOUR NEW MEDICATION LIST AND FOLLOW INSTRUCTIONS CAREFULLY. YOUR NEW MEDICATIONS INCLUDE: Formeterol, budesonide, as needed albuterol-nebulizer treatments to help with breathing Anoro Ellipta- one puff daily, to be used until Formeterol and Budesonide nebs are available this coming week Mucinex-for cough, promote expectoration of sputum Guaifenesin with codeine-as needed for cough Amlodipine-for control of her blood pressure Please continue using flutter valve 4 times a day at home. Please avoid sick contacts, and going outside as you are white blood cell count is low and your immunity is compromised at this point. Please advise your visitors to wear a mask when they visit with you. Always follow strict handwashing, including any visitors. PLEASE CALL YOUR PRIMARY CARE PHYSICIAN OR RETURN TO THE ER IF WITH WORSENING OF SYMPTOMS, INCLUDING Shortness of breath, increasing cough, blood in the sputum, fevers or chills, chest pain, etc. FOLLOW UP WITH PRIMARY CARE PHYSICIAN OUTLINED ABOVE. FOLLOW-UP WITH YOUR ONCOLOGIST SCHEDULED. Total Time Total Time Spent Total Time Spent (In Minutes): > 30 minutes
== END 2023-01-16 15:13 | disposition home health service (06) | DRG 180 ==
LOC: ED 09:49 → SUATTDRO 12:14 → EDINP 12:14 → 4W 22:25

== ENCOUNTER 2024-09-26 23:35 | Inpatient (IN) ==
--- NOTE | 2024-09-27 00:11 | Emergency Department Note ---
Impression & Plan Generalized weakness, Adult failure to thrive, Metastatic lung cancer (metastasis from lung to other site), Dyspnea, PINKY (acute kidney injury) ED Provider Note ED Provider Note NAME: JOSELITO YUAN AGE:63 SEX: Male : 1960 ARRIVES VIA: EMS INFORMANT: Patient ED PROVIDER(s): Terri Villarreal DO CHIEF COMPLAINT: weakness, shortness of breath HPI: This is a 63-year-old male presents emergency ferment due to concern for worsening weakness and shortness of breath. Patient has metastatic lung cancer and did just finish a course of palliative radiation. He states he is scheduled to see his cancer doctor tomorrow and have more chemotherapy. He states his doctor called for EMS to bring him here because they were concerned about his weakness. He states he has not had much of an appetite despite medications to stimulate his appetite and does not feel he is eating or drinking enough. He states he does not wear home oxygen, does use his inhalers and take his medications as prescribed. He denies any current headaches, dizziness, chest pain, abdominal pain, nausea. No recent change in urine or stools. He notes he is not making as much urine. He states he does feel very weak which makes him feel unsteady when he walks. He has been using a walker more recently and lieu of a cane due to the worsening weakness. Patient does live alone. He denies any falls. Patient states he does have metastatic disease in various locations including his brain. He states he does take steroids for this. He states he follows with Dr. Golden. PAST MEDICAL HISTORY:See Below PAST SURGICAL HISTORY:See Below FAMILY HISTORY:See Below SOCIAL HISTORY:See Below HOME MEDICATIONS:See Below ALLERGIES:See Below VITALS:See Below PHYSICAL EXAMINATION: GENERAL: alert, unwell appearing, cachetic, no distress, non-toxic EYE EXAM: normal conjunctiva, PERRL and EOM's grossly intact OROPHARYNX: no exudate, no erythema, lips, buccal mucosa, and tongue normal and mucous membranes are dry NECK: supple, no nuchal rigidity, no adenopathy, non-tender LUNGS: Decreased b/l to auscultation. Normal chest wall mechanics, no w/r/r HEART: no murmurs, S1 normal and S2 normal ABDOMEN: abdomen soft, non-tender, normo-active bowel sounds, no masses, no rebound or guarding. BACK: Back is symmetrical on inspection and there is no deformity, no midline tenderness, no CVA tenderness. SKIN: no rashes, petechiae, orbruising UPPER EXTREMITIES: upper extremities are grossly normal. FROM, nml pulses b/l. LOWER EXTREMITIES: No pitting edema. FROM, nml pulses b/l. NEURO EXAM: Normal sensorium, cranial nerves II-XII grossly intact, normal speech, no facial droop,nogross weakness of arms, no gross weakness of legs. Gross sensation intact. No ataxia. Vital Signs: reviewed and remarkable Differential Diagnosis: dehydration, stroke, anemia, hypoglycemia, hyponatremia, hypernatremia, urinary tract infection, pneumonia, bronchitis, sepsis, gastroenteritis, additional abdominal pathology, metabolic abnormalities, as well as others were considered MEDICAL DECISION MAKING: This is a 63-year-old male who presents emergency department due to concern for worsening weakness and inability to care for himself at home. Patient with known metastatic lung cancer receiving recent palliative radiation and set to begin further palliative chemotherapy. Patient denies any focal complaints, he states he does feel slightly short of breath. He was afebrile hemodynamically stable on arrival. Labs drawn and sent, IV established, EKG and chest x-ray performed at bedside interpreted by me and the patient was monitored on telemetry. Patient was started on IV fluids as he did appear clinically dehydrated. Duoneb given for dyspnea due to hx of COPD. Labs initially revealed a leukocytosis which I felt initially was from hemoconcentration and recent use of steroids. A lactic acid and procalcitonin were added as a precaution. Lactic acid is mildly elevated although I suspect that this was related to dehydration. Procalcitonin significantly elevated. Blood cultures and empiric IV cefepime were added. Patient did not yet produced a urine specimen due to dehydration. A bio fire nasal swab was added to evaluate for other viral causes. CT head reassuring. I suspect patient's symptoms more likely related to chronic disease and his known metastatic cancer. Patient does live alone. Due to concern for ability to care for himself as well as abnormal labs noted this evening, the case was discussed with the hospitalist team for additional evaluation and management. Patient did receive 30 ml/kg based on ABW. Consultation(s): 0210: Discussed with Dr. Ga, [place] hospitalist team, for additional evaluation and mgmt. ER Treatment Provided: See below Diagnostics Interpreted By Me: -ECG: ST at 122, left axis, nml intervals, no acute ST/T wave changes -Cardiac Monitoring: An order was placed for continuous cardiac monitoring. The monitor shows a rate of 108 with sinus tachycardia rhythm. -Laboratory studies: As stated above and show below. -Imaging studies: X-ray Chest: A single view study of the chest was reviewed and was negative for cardiomegaly, focal infiltrate, effusion, pulmonary edema, or wide mediastinum. Triage Nursing Note Reviewed Prior/Outside Records Reviewed - prior oncology Dc summary reviewed Past Med/Surg History Problem List (Updated 09/27/24 @ 06:25 by Terri Villarreal DO) PINKY (acute kidney injury) (Acute) PINKY (acute kidney injury) Dehydration Leukocytosis Dyspnea (Acute) Metastatic lung cancer (metastasis from lung to other site) (Acute) Adult failure to thrive (Acute) Generalized weakness (Acute) Lung cancer metastatic to brain (Chronic) Encounter for pre-operative examination Asthma Chest pain (Acute) Small cell lung cancer (Chronic) COPD (chronic obstructive pulmonary disease) (Acute) Postobstructive pneumonia (Acute) Malnutrition Mass of right inguinal region Lung mass Adult failure to thrive Dyspnea Mycobacterium avium complex Inguinal lymphadenopathy Abnormal chest CT Sepsis Pneumonia (Acute) Acute hyponatremia (Acute) COVID-19 (Acute) Alcohol abuse COPD exacerbation (Acute) Respiratory failure, acute (Acute) Tobacco use disorder (Chronic) Hypertension (Acute) Medical History Anemia Atherosclerosis of lower extremity with intermittent claudication COPD (chronic obstructive pulmonary disease) History of torsades de pointes Pleural effusion Small cell lung cancer Surgical History H/O lymph node biopsy History of bronchoscopy History of cataract surgery History of thoracentesis (01/13/23) History of tonsillectomy History of tooth extraction Port-A-Cath in place (01/28/23) Family History Mother Diabetes Heart disease Father No problems noted. Sister No problems noted. Sister No problems noted. Brother No problems noted. Son No problems noted. Daughter No problems noted. 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 How many Children do You have: 3 Feels Safe at Home: Yes Safety Concerns: Feels Safe At This Time Diet: regular caffeine: Yes (coffee, soda) during the past year weight has: decreased > 10 lbs Dental Care, Regularly: No Assistive Devices: Cane, Glasses, Walker and Wheelchair Allergies Allergies Allergy/AdvReac Type Severity Reaction Status Date / Time No Known Drug Allergies Allergy Verified 09/18/24 12:53 Home Meds Home Medications Medication Instructions Recorded Confirmed acetaminophen 500 mg tablet 1,000 mg PO Q6H PRN Pain 01/21/23 09/27/24 (Tylenol Extra Strength) dronabinol 5 mg capsule (Marinol) 5 mg PO TID 06/13/24 09/27/24 oxycodone 5 mg tablet 5 mg PO Q6H PRN pain,severe 06/13/24 09/27/24 megestrol 40 mg tablet 40 mg PO BID 09/26/24 09/27/24 ondansetron 8 mg disintegrating 8 mg PO Q8 PRN n/v 09/27/24 09/27/24 tablet prochlorperazine maleate 10 mg 10 mg PO Q6 PRN n/v 09/27/24 09/27/24 tablet Previous Rx's Medication Instructions Recorded albuterol sulfate 90 mcg/actuation 1 inh inhalation Q6H PRN shortness 12/25/22 aerosol inhaler of breath or wheezing #8.5 grams fluticasone fur. 100 mcg-umeclid 1 inh inhalation DAILY #60 ea 06/29/23 62.5 mcg-vilant 25 mcg inhalat.powder (Trelegy Ellipta) memantine 10 mg tablet 10 mg PO BID To help memory #60 07/17/24 tabs Results & Data (ED) Vital Signs Vital Signs - 24 hr 09/26/24 23:30 09/26/24 23:45 09/27/24 00:13 Temperature 36.7 C Temperature Source Oral Pulse Rate 115 H 120 H Pulse Rate [Apical] Pulse Rhythm [Apical] Respiratory Rate 20 Respiratory Effort / Characteristics Respiratory Depth Respiratory Pattern Blood Pressure 119/79 Blood Pressure [Right Arm] Blood Pressure Mean 92 Blood Pressure Mean [Right Arm] Blood Pressure Position [Right Arm] Pulse Oximetry 98 97 Oxygen Delivery Method Room Air Sepsis Recent Fever Within 48 Hours No Sepsis New/Unexplained Change in Mental Status No Sepsis Action Taken by Nursing No Action Required 09/27/24 00:30 09/27/24 02:11 Temperature 37.1 C Temperature Source Oral Pulse Rate 111 H Pulse Rate [Apical] 106 H Pulse Rhythm [Apical] Regular Respiratory Rate 24 20 Respiratory Effort / Characteristics Non-Labored Spontaneous Respiratory Depth Normal Respiratory Pattern Regular Blood Pressure 163/116 H Blood Pressure [Right Arm] 168/116 H Blood Pressure Mean 131 Blood Pressure Mean [Right Arm] 133 Blood Pressure Position [Right Arm] Semi-fowlers Pulse Oximetry 100 99 Oxygen Delivery Method Room Air Room Air Sepsis Recent Fever Within 48 Hours Sepsis New/Unexplained Change in Mental Status Sepsis Action Taken by Nursing Laboratory Data 09/27/24 00:15 09/27/24 04:45 Lab Results 09/27/24 09/27/24 09/27/24 Range/Units 00:15 00:19 02:10 WBC 25.77 H (4.8-10.8) K/ul RBC 3.37 L (4.70-6.10) M/uL Hgb 11.4 L (14.0-18.0) g/dl Hct 33.4 L (42.0-52.0) % MCV 99.1 (80.0-100.0) fL MCH 33.8 (25.0-34.0) pg MCHC 34.1 (32.0-36.0) g/dL RDW Std Deviation 60.5 H (36.4-46.3) fL RDW Coeff of Antony 17.0 H (11.5-14.5) % Plt Count 436 H (130-400) K/uL MPV 10.2 (9.4-12.4) fL Immature Gran % (Auto) 0.7 % Neut % (Auto) 90.4 % Lymph % (Auto) 1.3 % [place] % (Auto) 7.4 % Eos % (Auto) 0.0 % Baso % (Auto) 0.2 % Neut # (Auto) 23.27 H (1.40-6.50) K/uL Lymph # (Auto) 0.34 L (1.20-3.40) K/uL [place] # (Auto) 1.91 H (0.11-0.59) K/uL Eos # (Auto) 0.00 (0.00-0.50) K/uL Baso # (Auto) 0.06 (0.00-0.20) K/uL Immature Gran # (Auto) 0.19 (0.01-0.20) K/uL Echinocytes 1+ PT 11.5 (9.0-12.0) Seconds INR 1.1 (0.9-1.1) Sodium 137 (136-145) mmol/L Potassium 3.7 (3.5-5.1) mmol/L Chloride 103 (98-107) mmol/L Carbon Dioxide 22 (21-32) mmol/L Anion Gap 12 H (3-11) BUN 39 H (6-23) mg/dl Creatinine 1.24 (0.6-1.4) mg/dl Est Cr Clr Drug Dosing 34.0 ml/min eGFR 64.93 BUN/Creatinine Ratio 31.5 H (10-20) Glucose 98 (70-99(Fasting)) mg/dl Lactate 2.3 H* (0.4-2.0) mmol/L Calcium 9.5 (8.6-10.3) mg/dl Magnesium 2.2 (1.7-2.4) mg/dl Total Bilirubin 1.2 H (0.2-1.0) mg/dl AST 40 H (13-39) U/L ALT 21 (7-52) U/L Alkaline Phosphatase 261 H (34-104) U/L Troponin I High Sens 17.8 (0-20) pg/ml Total Protein 7.0 (6.0-8.3) gm/dl Albumin 4.0 (3.4-5.0) gm/dl Globulin 3.0 (2.5-4.0) gm/dl Albumin/Globulin Ratio 1.3 (0.9-2) Lipase 25 (11-82) U/L Procalcitonin > 100.00 H (0-0.5) ng/ml TSH 1.533 (0.300-4.500) uIu/ml Urine Color Urine Appearance (Clear) Urine pH (4.5-7.5) Ur Specific [place] (1.000-1.030) Urine Protein (Negative) Urine Glucose (UA) (Negative) Urine Ketones (Negative) Urine Blood (Negative) Urine Nitrite (Negative) Urine Bilirubin (Negative) Urine Urobilinogen (Negative) Ur Leukocyte Esterase (Negative) Urine WBC (Auto) (0-5) /hpf Urine RBC (Auto) (0-2) /hpf U Hyaline Cast (Auto) (0-2) /lpf U Epithel Cells (Auto) (0-2) /hpf Urine Bacteria (Auto) (None Seen) Urine Comment Adenovirus (PCR) Not Detected (NotDetected) B. pertussis DNA (PCR) Not Detected (NotDetected) B.parapertussis DNA PCR Not Detected (NotDetected) C. pneumoniae DNA (PCR) Not Detected (NotDetected) Coronavirus OC43 (PCR) Not Detected (NotDetected) Coronavirus HKU1 (PCR) Not Detected (NotDetected) Coronavirus 229E (PCR) Not Detected (NotDetected) SARS-CoV-2 (PCR) Not Detected (NotDetected) Coronavirus NL63 (PCR) Not Detected (NotDetected) Human Metapneumovir PCR Not Detected (NotDetected) Influenza Type A (PCR) Not Detected (NotDetected) Influenza Type B (PCR) Not Detected (NotDetected) M. pneumoniae (PCR) Not Detected (NotDetected) Parainfluenza 1 (PCR) Not Detected (NotDetected) Parainfluenza 2 (PCR) Not Detected (NotDetected) Parainfluenza 3 (PCR) Not Detected (NotDetected) Parainfluenza 4 (PCR) Not Detected (NotDetected) RSV (PCR) Not Detected (NotDetected) Entero/Rhino (PCR) Not Detected (NotDetected) 09/27/24 Range/Units 02:25 WBC (4.8-10.8) K/ul RBC (4.70-6.10) M/uL Hgb (14.0-18.0) g/dl Hct (42.0-52.0) % MCV (80.0-100.0) fL MCH (25.0-34.0) pg MCHC (32.0-36.0) g/dL RDW Std Deviation (36.4-46.3) fL RDW Coeff of Antony (11.5-14.5) % Plt Count (130-400) K/uL MPV (9.4-12.4) fL Immature Gran % (Auto) % Neut % (Auto) % Lymph % (Auto) % [place] % (Auto) % Eos % (Auto) % Baso % (Auto) % Neut # (Auto) (1.40-6.50) K/uL Lymph # (Auto) (1.20-3.40) K/uL [place] # (Auto) (0.11-0.59) K/uL Eos # (Auto) (0.00-0.50) K/uL Baso # (Auto) (0.00-0.20) K/uL Immature Gran # (Auto) (0.01-0.20) K/uL Echinocytes PT (9.0-12.0) Seconds INR (0.9-1.1) Sodium (136-145) mmol/L Potassium (3.5-5.1) mmol/L Chloride (98-107) mmol/L Carbon Dioxide (21-32) mmol/L Anion Gap (3-11) BUN (6-23) mg/dl Creatinine (0.6-1.4) mg/dl Est Cr Clr Drug Dosing ml/min eGFR BUN/Creatinine Ratio (10-20) Glucose (70-99(Fasting)) mg/dl Lactate (0.4-2.0) mmol/L Calcium (8.6-10.3) mg/dl Magnesium (1.7-2.4) mg/dl Total Bilirubin (0.2-1.0) mg/dl AST (13-39) U/L ALT (7-52) U/L Alkaline Phosphatase (34-104) U/L Troponin I High Sens (0-20) pg/ml Total Protein (6.0-8.3) gm/dl Albumin (3.4-5.0) gm/dl Globulin (2.5-4.0) gm/dl Albumin/Globulin Ratio (0.9-2) Lipase (11-82) U/L Procalcitonin (0-0.5) ng/ml TSH (0.300-4.500) uIu/ml Urine Color Yellow Urine Appearance Clear (Clear) Urine pH 5.5 (4.5-7.5) Ur Specific [place] 1.024 (1.000-1.030) Urine Protein Trace H (Negative) Urine Glucose (UA) Negative (Negative) Urine Ketones Trace H (Negative) Urine Blood 2+ H (Negative) Urine Nitrite Negative (Negative) Urine Bilirubin Negative (Negative) Urine Urobilinogen Negative (Negative) Ur Leukocyte Esterase Trace H (Negative) Urine WBC (Auto) 0-5 (0-5) /hpf Urine RBC (Auto) >20 H (0-2) /hpf U Hyaline Cast (Auto) 0-2 (0-2) /lpf U Epithel Cells (Auto) 0-2 (0-2) /hpf Urine Bacteria (Auto) None Seen (None Seen) Urine Comment Adenovirus (PCR) (NotDetected) B. pertussis DNA (PCR) (NotDetected) B.parapertussis DNA PCR (NotDetected) C. pneumoniae DNA (PCR) (NotDetected) Coronavirus OC43 (PCR) (NotDetected) Coronavirus HKU1 (PCR) (NotDetected) Coronavirus 229E (PCR) (NotDetected) SARS-CoV-2 (PCR) (NotDetected) Coronavirus NL63 (PCR) (NotDetected) Human Metapneumovir PCR (NotDetected) Influenza Type A (PCR) (NotDetected) Influenza Type B (PCR) (NotDetected) M. pneumoniae (PCR) (NotDetected) Parainfluenza 1 (PCR) (NotDetected) Parainfluenza 2 (PCR) (NotDetected) Parainfluenza 3 (PCR) (NotDetected) Parainfluenza 4 (PCR) (NotDetected) RSV (PCR) (NotDetected) Entero/Rhino (PCR) (NotDetected) Administered Medications Lactated Ringer's (Lr) 1,000 mls @ 100 mls/hr IV .Q10H EMMA Stop: 09/30/24 02:59 Last Admin: 09/27/24 04:19 Dose: 100 mls/hr Documented By: CARIDAD Discontinued Medications Albuterol (Albut/Ipratrop 3mg/0.5mg Neb 3 Ml Vial) 3 ml NEB NOW STA; Protocol Stop: 09/27/24 01:07 Last Admin: 09/27/24 01:35 Dose: 3 ml Documented By: CHRISSY Sodium Chloride (Nss) 1,000 mls @ 200 mls/hr IV .Q5H EMMA Stop: 09/27/24 04:59 Last Infusion: 09/27/24 03:46 Dose: Infused Documented By: Infusion: 09/27/24 02:13 Dose: 0 mls/hr Documented By: Admin: 09/27/24 00:17 Dose: 200 mls/hr Documented By: JAYDEN Acetaminophen (Ofirmev) 1,000 mg in 100 mls @ 400 mls/hr IV NOW STA Stop: 09/27/24 01:54 Last Infusion: 09/27/24 02:00 Dose: Infused Documented By: Admin: 09/27/24 01:45 Dose: 400 mls/hr Documented By: CHRISSY Cefepime HCl (Maxipime 2000mg) 2,000 mg in 20 mls @ 5 mls/min IV NOW STA; Protocol Stop: 09/27/24 01:49 Last Admin: 09/27/24 02:18 Dose: 5 mls/min Documented By: CHRISSY Sodium Chloride (Nss) 1,000 mls @ 999 mls/hr IV .Q1H1M ONE Stop: 09/27/24 02:49 Last Infusion: 09/27/24 03:46 Dose: Infused Documented By: Admin: 09/27/24 02:13 Dose: 999 mls/hr Documented By: JAYDEN Oxycodone HCl (Oxycodone Hcl Ir 5 Mg Tab (Immediate Release)) 5 mg PO Q4H PRN PRN Reason: Moderate Pain (Scale 4, 5, 6) Stop: 10/11/24 03:28 Last Admin: 09/27/24 03:40 Dose: 5 mg Documented By: NAW Imaging Data Radiologist's Impression: Chest X-Ray 09/27/24 00:00 EXAM: XR chest 1V portable CLINICAL HISTORY: weakness, sob TECHNIQUE: An X-ray image of the chest is obtained in AP projection. COMPARISON: Compared with previous CT dated 06/16/2024. FINDINGS: Pulmonary Parenchyma: The small right upper calista zone nodules previously noted on previous CT study, could be clearly delineated by X ray. Reduced left lung volume with faint opacity seen at the left upper lung zone, mostly upper lobe collapse ( previously noted). No evidence of pleural effusion or pleural thickening. Heart and Mediastinum: Heart size and shape are normal. No mediastinal widening or masses. No hilar or mediastinal lymphadenopathy. Bony Thorax: Bony thorax appears intact without fractures or deformities. Soft Tissues: Soft tissues overlying the chest wall are unremarkable. Evidence of central venous line with its tip seen well positioned at the cavo-atrial junction. ( new) There is a tube shadow with its tip projecting over the mediastinum.( new) IMPRESSION: 1. The small right upper lung zone nodules previously noted on CT study dated 06/16/2024 , could be clearly delineated by X ray. 2. Reduced left lung volume with faint opacity seen at the left upper lung zone, mostly left upper lobe collapse (previously noted). 3. Evidence of central venous line with its tip seen well positioned at the cavo-atrial junction. ( new) Electronically signed by Surya Remy 09-27-2024 02:[address] 09/27/24 00:00 EXAM: CT head/brain wo con CLINICAL HISTORY: hx brain mets, incr weakness TECHNIQUE: Axial non-contrast CT scan of the brain was performed from the skull base to the high parietal region. One of the following dose reduction techniques were utilized for this exam: Automated exposure control, adjustment of the mA and/or kV according to patient size, use of iterative reconstruction. CTDI: 34.62 mGy, DLP: 625.8 mGy.cm COMPARISON: None. FINDINGS: Brain Parenchyma: Parenchymal volume loss with capacious CSF spaces. Periventricular hypodensities could be related to periventricular small vessel disease. Subcentimeter bilateral hypodensities are noted in the basal ganglia and right thalamus. No evidence of acute hemorrhage. Ventricular System: No evidence of hydrocephalus or ventricular hemorrhage. Subarachnoid Spaces: Prominent sulci and cisterns. No evidence of subarachnoid hemorrhage or extra-axial fluid collections. Cerebellum and Brainstem: No masses, lesions, or areas of abnormal density. Orbits: No evidence of orbital masses or abnormal density. Air is noted in the bilateral retro-bulbar region. Please correlate clinically. Sinuses: Partial opacification of the left maxillary sinus with air bubbles. Mastoid Air Cells: Partial opacification of the inferior part of the left mastoid air cells. Skull: Normal skull morphology. IMPRESSION: 1. No evidence of acute brain hemorrhage. 2. No evidence of a definite intra-axial space-occupying lesion; however, small metastatic deposits cannot be ruled out. Correlation with contrast-enhanced brain MRI may be considered. 3. Parenchymal volume loss with capacious CSF spaces and likely periventricular small vessel disease. 4. Subcentimeter bilateral basal ganglia and right thalamic hypodensities could represent old lacunar infarcts. In the clinical suspicion of acute infarction, please correlate with brain MRI with an ADC map. 5. Partial opacification of the left maxillary sinus and the left mastoid air cells. Clinical correlation is advised to assess for acute sinusitis and mild left mastoiditis Electronically signed by Surya Remy 09-27-2024 01:38 AM Discharge Plan Visit Data Chief Complaint: Weakness Stated Complaint: Weakness ED Provider: Terri Villarreal Discharge Problem: Generalized weakness, Adult failure to thrive, Metastatic lung cancer (metastasis from lung to other site), Dyspnea, PINKY (acute kidney injury) Patient Disposition: Admitted As Inpatient Condition: Fair Discharge Instructions Interventions: ED Discharge Assessment Last Done: 09/27/24 03:37
[2024-09-27] MEDS: SODIUM CHLORIDE 0.9% 1,000 ML IV SCH (00:17)
[2024-09-27 00:37] LABS: Hematocrit (blood only) 33.4 % (42.0-52.0); Hemoglobin 11.4 g/dl (14.0-18.0); Mean Corpuscular Hemoglobin 33.8 pg (25.0-34.0); Mean Corpuscular Volume 99.1 fL (80.0-100.0); Platelet Count 436 K/uL (130-400); RDW Standard Deviation 60.5 fL (36.4-46.3); Red Blood Count 3.37 M/uL (4.70-6.10); White Blood Count 25.77 K/ul (4.8-10.8)
[2024-09-27 00:57] LABS: Alanine Aminotransferase 21.0 U/L (7-52); Albumin Globulin Ratio 1.3 (0.9-2); Alkaline Phosphatase 261.0 U/L (34-104); Anion Gap 12.0 (3-11); Bilirubin,Total 1.2 mg/dl (0.2-1.0); Blood Urea Nitrogen 39.0 mg/dl (6-23); Calcium 9.5 mg/dl (8.6-10.3); Carbon Dioxide 22.0 mmol/L (21-32); Chloride 103.0 mmol/L (98-107); Creatinine Clr Calc Pharmacy 34.0 ml/min; Globulin 3.0 gm/dl (2.5-4.0); Glucose 98.0 mg/dl (70-99(Fasting)); Immature Granulocytes # (auto) 0.19 K/uL (0.01-0.20); Immature Granulocytes % (auto) 0.7 %; Lipase 25.0 U/L (11-82); Magnesium 2.2 mg/dl (1.7-2.4); Potassium 3.7 mmol/L (3.5-5.1); Sodium 137.0 mmol/L (136-145); Total Protein 7.0 gm/dl (6.0-8.3)
[2024-09-27 01:10] LABS: INR 1.1 (0.9-1.1); Prothrombin Time 11.5 Seconds (9.0-12.0)
[2024-09-27 01:12] LABS: Thyroid Stimulating Hormone 1.533 uIu/ml (0.300-4.500)
[2024-09-27] MEDS: ALBUT/IPRATROP 3MG/0.5MG NEB 3 ML VIAL NEB STA (01:35)
--- NOTE | 2024-09-27 01:39 | CT Scan Report ---
EXAM: CT head/brain wo con CLINICAL HISTORY: hx brain mets, incr weakness TECHNIQUE: Axial non-contrast CT scan of the brain was performed from the skull base to the high parietal region. One of the following dose reduction techniques were utilized for this exam: Automated exposure control, adjustment of the mA and/or kV according to patient size, use of iterative reconstruction. CTDI: 34.62 mGy, DLP: 625.8 mGy.cm COMPARISON: None. FINDINGS: Brain Parenchyma: Parenchymal volume loss with capacious CSF spaces. Periventricular hypodensities could be related to periventricular small vessel disease. Subcentimeter bilateral hypodensities are noted in the basal ganglia and right thalamus. No evidence of acute hemorrhage. Ventricular System: No evidence of hydrocephalus or ventricular hemorrhage. Subarachnoid Spaces: Prominent sulci and cisterns. No evidence of subarachnoid hemorrhage or extra-axial fluid collections. Cerebellum and Brainstem: No masses, lesions, or areas of abnormal density. Orbits: No evidence of orbital masses or abnormal density. Air is noted in the bilateral retro-bulbar region. Please correlate clinically. Sinuses: Partial opacification of the left maxillary sinus with air bubbles. Mastoid Air Cells: Partial opacification of the inferior part of the left mastoid air cells. Skull: Normal skull morphology. IMPRESSION: 1. No evidence of acute brain hemorrhage. 2. No evidence of a definite intra-axial space-occupying lesion; however, small metastatic deposits cannot be ruled out. Correlation with contrast-enhanced brain MRI may be considered. 3. Parenchymal volume loss with capacious CSF spaces and likely periventricular small vessel disease. 4. Subcentimeter bilateral basal ganglia and right thalamic hypodensities could represent old lacunar infarcts. In the clinical suspicion of acute infarction, please correlate with brain MRI with an ADC map. 5. Partial opacification of the left maxillary sinus and the left mastoid air cells. Clinical correlation is advised to assess for acute sinusitis and mild left mastoiditis Electronically signed by Surya Remy 09-27-2024 01:38 AM
[2024-09-27] MEDS ORDERED: MoRPHine SULFATE 2 MG/ML CARP IV PRN (01:40)
[2024-09-27] MEDS: ACETAMINOPHEN 1,000 MG/100 ML VIAL IV STA (01:45)
[2024-09-27] MEDS: SODIUM CHLORIDE 0.9% 1,000 ML IV ONE (02:13)
[2024-09-27] MEDS: CEFEPIME 2000MG 2,000 MG/20 ML SYR IV STA (02:18)
--- NOTE | 2024-09-27 02:21 | XRay Report ---
EXAM: XR chest 1V portable CLINICAL HISTORY: weakness, sob TECHNIQUE: An X-ray image of the chest is obtained in AP projection. COMPARISON: Compared with previous CT dated 06/16/2024. FINDINGS: Pulmonary Parenchyma: The small right upper calista zone nodules previously noted on previous CT study, could be clearly delineated by X ray. Reduced left lung volume with faint opacity seen at the left upper lung zone, mostly upper lobe collapse ( previously noted). No evidence of pleural effusion or pleural thickening. Heart and Mediastinum: Heart size and shape are normal. No mediastinal widening or masses. No hilar or mediastinal lymphadenopathy. Bony Thorax: Bony thorax appears intact without fractures or deformities. Soft Tissues: Soft tissues overlying the chest wall are unremarkable. Evidence of central venous line with its tip seen well positioned at the cavo-atrial junction. ( new) There is a tube shadow with its tip projecting over the mediastinum.( new) IMPRESSION: 1. The small right upper lung zone nodules previously noted on CT study dated 06/16/2024 , could be clearly delineated by X ray. 2. Reduced left lung volume with faint opacity seen at the left upper lung zone, mostly left upper lobe collapse (previously noted). 3. Evidence of central venous line with its tip seen well positioned at the cavo-atrial junction. ( new) Electronically signed by Surya Remy 09-27-2024 02:21 AM
--- NOTE | 2024-09-27 02:41 | History & Physical Report ---
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 Patient presented after referral by oncology due to weakness. He was found to have a white count 25.77, lactate 2.3, tachycardia (HR 120), procalcitonin greater than 100. Patient is extremely dry and suspect these elevations secondary to dehydration however infection remains on differential. No signs of pulmonary infection. Further workup is pending at time of admission. #leukocytosis - WBC 25.77 with neutrophil predominance. Lactate 2.3. Procalcitonin greater than 100. No source of infection found at time of admissionCXR negative. Relatively asymptomatic. Suspect component of hemodilution with significant dehydration. Urinalysis and bio fire ordered - negative for acute infection Follow blood cultures MRSA swab ordered - 2 hr repeat lactic acid ordered continue cefepime with immunocompromise status Received 1L NSS bolus in ED, continue NSS at 200 mL/hr x 1L from ED - transition to LR @ 100 ml/hr Trend CBC #Dehydration - Extremely dry mucous membranes and poor p.o. intake. With hemodilution noted on laboratories and PINKY. Fluids as above Promote oral hydration Anticipate leukocytosis to improve with IV hydration #PINKY - likely prerenal with dehydration/hypovolemia. Cr increased from 0.74 to 1.24, BUN elevated to 39. electrolytes stable. 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 [facility] Continue Megace Heme/oncology consulted, is to have chemotherapy in the morning 09/27 #COPD/MAC continue home inhalers. Nonhypoxic at time of admission. 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 Patient presented after referral by oncology due to weakness. He was found to have a white count 25.77, lactate 2.3, tachycardia (HR 120), procalcitonin greater than 100. Patient is extremely dry and suspect these elevations secondary to dehydration however infection remains on differential. No signs of pulmonary infection. Further workup is pending at time of admission. Patient seen at bedside. He is unsure as to why he was told to come over given his weakness and back pain however stated he was told he needed to come over for admission. He is a relatively poor historian. He stated he has been weak and with back pain today. He does have chronic back pain that currently is worse. He endorses chronic shortness of breath on exertion and dry cough that is unc hanged. He denies any dizziness, lightheadedness, fever, chills, congestion, chest pain, abdominal pain, nausea, vomiting, diarrhea, dysuria, difficulty urinating, skin erythema. He still smokes cigarettes but declines need for nicotine patch at this time. He took all of his evening medications prior to arrival. He wishes to be full code. He does endorse having a poor appetite and not drinking enough fluids at home and does feel like his mouth is dry. Most recent chemotherapy 2 weeks ago. Is to have chemotherapy in the morning with Dr. Golden. Allergies Allergy/AdvReac Type Severity Reaction Status Date / Time No Known Drug Allergies Allergy Verified 09/18/24 12:53 Home Medications Medication Instructions Recorded Confirmed Type albuterol sulfate 90 mcg/actuation 1 inh inhalation Q6H PRN shortness 12/25/22 09/27/24 Rx aerosol inhaler of breath or wheezing #8.5 grams acetaminophen 500 mg tablet 1,000 mg PO Q6H PRN Pain 01/21/23 09/27/24 History (Tylenol Extra Strength) fluticasone fur. 100 mcg-umeclid 1 inh inhalation DAILY #60 ea 06/29/23 09/27/24 Rx 62.5 mcg-vilant 25 mcg inhalat.powder (Trelegy Ellipta) dronabinol 5 mg capsule (Marinol) 5 mg PO TID 06/13/24 09/27/24 History oxycodone 5 mg tablet 5 mg PO Q6H PRN pain,severe 06/13/24 09/27/24 History memantine 10 mg tablet 10 mg PO BID To help memory #60 07/17/24 09/27/24 Rx tabs megestrol 40 mg tablet 40 mg PO BID 09/26/24 09/27/24 History ondansetron 8 mg disintegrating 8 mg PO Q8 PRN n/v 09/27/24 09/27/24 History tablet prochlorperazine maleate 10 mg 10 mg PO Q6 PRN n/v 09/27/24 09/27/24 History tablet Past Med/Surg History Problem List (Updated 09/27/24 @ 02:58 by Elham Cintron PA-C) PINKY (acute kidney injury) Dehydration Leukocytosis Dyspnea (Acute) Metastatic lung cancer (metastasis from lung to other site) (Acute) Adult failure to thrive (Acute) Generalized weakness (Acute) Lung cancer metastatic to brain (Chronic) Encounter for pre-operative examination Asthma Chest pain (Acute) Small cell lung cancer (Chronic) COPD (chronic obstructive pulmonary disease) (Acute) Postobstructive pneumonia (Acute) Malnutrition Mass of right inguinal region Lung mass Adult failure to thrive Dyspnea Mycobacterium avium complex Inguinal lymphadenopathy Abnormal chest CT Sepsis Pneumonia (Acute) Acute hyponatremia (Acute) COVID-19 (Acute) Alcohol abuse COPD exacerbation (Acute) Respiratory failure, acute (Acute) Tobacco use disorder (Chronic) Hypertension (Acute) Medical History Anemia Atherosclerosis of lower extremity with intermittent claudication COPD (chronic obstructive pulmonary disease) History of torsades de pointes Pleural effusion Small cell lung cancer Surgical History H/O lymph node biopsy History of bronchoscopy History of cataract surgery History of thoracentesis (01/13/23) History of tonsillectomy History of tooth extraction Port-A-Cath in place (01/28/23) Family History Mother Diabetes Heart disease Father No problems noted. Sister No problems noted. Sister No problems noted. Brother No problems noted. Son No problems noted. Daughter No problems noted. Other No family history of adverse response to anesthesia Social History Smoking Status: Current every day smoker Tobacco Type: Cigarettes Age Started Using Tobacco: 12; Cigarettes Per Day: 8-10 daily>advised; Second Hand Exposure: No; Do You Dip or Chew Tobacco: No; Hx Alcohol Use: Yes Alcohol type: beer Alcohol Intake Frequency: 4 or More x per/Week Hx Substance Use: No Preferred Language: Mosotho Communication Ability: Effective Visual Impairment: Limited Hearing Ability: Normal Group Home Worker Required: No Beliefs That Will Affect Care: None Current Living Situation: Alone current occupational status: retired 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 HEENT- EOMI, mucous membranes dry. Hearing grossly intact. Heart-normal S1 and S2. No murmurs, rubs or gallops. Lungs-clear bilaterally, no respiratory distress, no accessory muscle use. Abdomen-normal bowel sounds and soft. No ascites noted. Non-tender. Extremities- no clubbing, cyanosis, or edema. Rheumatologic-normal range of motion. Psychiatric-normal affect. Results & Data Results & Data Vital Signs (Past 12 Hours) Vital Signs Temp Pulse Pulse Resp BP BP Pulse Ox 09/27/24 02:11 37.1 C 106 H 20 168/116 H 99 09/27/24 00:30 111 H 24 163/116 H 100 09/27/24 00:13 120 H 09/26/24 23:45 97 09/26/24 23:30 36.7 C 115 H 20 119/79 98 O2 Del Method 09/27/24 02:11 Room Air 09/27/24 00:30 Room Air 09/27/24 00:13 09/26/24 23:45 Room Air 09/26/24 23:30 Laboratory Results reviewed CBC, CMP, lactate, PT/INR, procalcitonin, magnesium, TSH, troponin Bio fire and UA pending Diagnostic Findings reviewed CXR and head CT Medications Administered ED1L NSS bolus, NSS at 200 mL/hour, Tylenol 1G IV, cefepime 2G IV ECG Additional Comments: sinus tachycardia Rate 122 QTc 461 Code Status & VTE Plan Code Status full code VTE Prophylaxis Plan VTE Prophylaxis will be ordered: Yes Supervising Physician Co-Signing Physician Notes Attending addendum: I have physically seen this patient, have supervised the TANYA's activities, and agree with the H&P unless as otherwise noted. Assessment and Plan: The patient is a 63-year-old male with a past medical history including small cell lung cancer metastatic to brain and liver on current chemotherapy, COPD with current tobacco use, hypertension, history of torsades, Mycobacterium AVM complex, and adult failure to thrive with significant weight loss. He presents to the emergency department after calling the oncology on-call service due to his progressive weakness, we then referred him to the ED for assessment. When patient was found to have a WBC of 25.77, lactate of 2.3 and heart rate of 120, and with procalcitonin greater than 100, [facility]. Metastatic lung cancer to liver and brain/failure to thrive- Patient with significant leukocytosis, WBC 25.77 with left shift, lactate 2.3, and procalcitonin greater than 100. At least part of these findings are related to significant dehydration and hemoconcentration- BioFire negative Urinalysis appears negative Follow-up blood culture and sensitivity MRSA swab ordered Follow-up lactate in 2 hours per protocol Continue cefepime begun in the ED due to immunocompromise status Received normal saline 1 L bolus from the ED Continue fluid resuscitation with NSS at 200 mL/h x 1 L from the ED, then transition to LR at 100 mL/h Follow serial CBC with differential and chemistry profile Consult hematology oncology Acute kidney injury/dehydration- IV fluids as noted above Creatinine 1.24 on admission with base 0.74, and little muscle mass Repeat laboratories in a.m. COPD/tobacco use/Mycobacterium AVM complex- Pulse ox 100% on room air Continue usual home inhalers Pain control- Acetaminophen 650 mg by mouth every 6 hours as needed for mild pain or fever Oxycodone 5 mg by mouth every 4 hours as needed for moderate to severe pain Consult palliative care PG Care Time/CCT Total # of Minutes Spent Total Time Spent with Patient: Total time spent is greater than 50% in coordination of care (as documented) at patient's floor/unit and/or counseling patient: Coding Level of Care Code 83608 INT INP/OBS CARE MIN Diagnoses Leukocytosis D72.829 Dehydration E86.0 PINKY (acute kidney injury) N17.9 Generalized weakness R53.1
[2024-09-27 03:14] LABS: Chlamydia pneumoniae PCR Not Detected (NotDetected); Coronavirus 229E PCR Not Detected (NotDetected); Coronavirus CoV-2 (COVID19)PCR Not Detected (NotDetected); Coronavirus HKU1 PCR Not Detected (NotDetected); Coronavirus NL63 PCR Not Detected (NotDetected); Coronavirus OC43PCR Not Detected (NotDetected); Human Metapneumovirus PCR Not Detected (NotDetected); Parainfluenza Virus 1 PCR Not Detected (NotDetected); Parainfluenza Virus 2 PCR Not Detected (NotDetected); Parainfluenza Virus 3 PCR Not Detected (NotDetected); Parainfluenza Virus 4 PCR Not Detected (NotDetected); Respiratory Syncytial VirusPCR Not Detected (NotDetected); Rhinovirus/Enterovirus PCR Not Detected (NotDetected)
[2024-09-27 03:23] LABS: Appearance Urine Clear (Clear); Bacteria Urine Automated None Seen (None Seen); Cast Urine Automated 0-2 /lpf (0-2); Epithelial Cell Urine Auto 0-2 /hpf (0-2); Glucose Urine UA Negative (Negative); RBC Urine Automated >20 /hpf (0-2); WBC Urine Automated 0-5 /hpf (0-5)
[2024-09-27] MEDS ORDERED: ALBUTEROL HFA 8 GM INHALER INH PRN (04:02)
[2024-09-27] MEDS ORDERED: MELATONIN 3 MG TAB PO PRN (04:02)
[2024-09-27] MEDS ORDERED: DOCUSATE SODIUM 100 MG CAP PO PRN (04:02)
[2024-09-27] MEDS ORDERED: ACETAMINOPHEN 500 MG TAB PO PRN (04:02)
[2024-09-27] MEDS ORDERED: ONDANSETRON INJ 2 MG/ML 2 ML VIAL IV PRN (04:02)
[2024-09-27] MEDS: LACTATED RINGER'S 1,000 ML IV SCH (04:19)
[2024-09-27 05:24] LABS: Anion Gap 14.0 (3-11); Blood Urea Nitrogen 38.0 mg/dl (6-23); Calcium 8.7 mg/dl (8.6-10.3); Carbon Dioxide 17.0 mmol/L (21-32); Chloride 104.0 mmol/L (98-107); Creatinine Clr Calc Pharmacy 41.7 ml/min; Glucose 101.0 mg/dl (70-99(Fasting)); Magnesium 1.9 mg/dl (1.7-2.4); Potassium 3.7 mmol/L (3.5-5.1); Sodium 135.0 mmol/L (136-145)
[2024-09-27] MEDS ORDERED: HEPARIN 100 UNIT/ML 5ML FLUSH FLUSH PRN (05:42)
--- NOTE | 2024-09-27 07:40 | Oncology Consultation ---
Date of Consultation September 27, 2024 Assessment & Plan (1) Leukocytosis: (2) Dehydration: (3) PINKY (acute kidney injury): (4) Metastatic lung cancer (metastasis from lung to other site): Plan -Leukocytosis likely secondary to G-CSF administered after chemotherapy. - Patient's current performance status is not great and not likely able to tolerate further chemotherapy such as third line treatment with tarlatamab. Agree with palliative care involvement as patient and family would likely benefit from goals of care discussion. Very reasonable at this time to consider hospice. History of Present Illness Reason for Consultation: chemotherapy, leukocytosis Attending Physician: José Bolden MD History of Present Illness 63-year-old gentleman with stage IV/extensive stage small cell lung cancer for which he is currently on treatment with lurbinectedin and received cycle 10 of treatment on 09/06/2024 with G-CSF administered on 09/07/2024. He was admitted to [facility] with generalized weakness, incontinence and altered mental status. Of note, his most recent restaging scans showed disease progression for which I had referred him to [facility] [place] for consideration of third line treatment with tarlatamab. He was evaluated by Dr. Cooper of oncology at [facility] [place] who was concerned about patient's current performance status and ability to tolerate tarlatamab Allergies Allergy/AdvReac Type Severity Reaction Status Date / Time No Known Drug Allergies Allergy Verified 09/18/24 12:53 Home Medications Medication Instructions Recorded Confirmed Type albuterol sulfate 90 mcg/actuation 1 inh inhalation Q6H PRN shortness 12/25/22 09/27/24 Rx aerosol inhaler of breath or wheezing #8.5 grams acetaminophen 500 mg tablet 1,000 mg PO Q6H PRN Pain 01/21/23 09/27/24 History (Tylenol Extra Strength) fluticasone fur. 100 mcg-umeclid 1 inh inhalation DAILY #60 ea 06/29/23 09/27/24 Rx 62.5 mcg-vilant 25 mcg inhalat.powder (Trelegy Ellipta) dronabinol 5 mg capsule (Marinol) 5 mg PO TID 06/13/24 09/27/24 History oxycodone 5 mg tablet 5 mg PO Q6H PRN pain,severe 06/13/24 09/27/24 History memantine 10 mg tablet 10 mg PO BID To help memory #60 07/17/24 09/27/24 Rx tabs megestrol 40 mg tablet 40 mg PO BID 09/26/24 09/27/24 History ondansetron 8 mg disintegrating 8 mg PO Q8 PRN n/v 09/27/24 09/27/24 History tablet prochlorperazine maleate 10 mg 10 mg PO Q6 PRN n/v 09/27/24 09/27/24 History tablet Patient History Medical History Anemia Atherosclerosis of lower extremity with intermittent claudication COPD (chronic obstructive pulmonary disease) History of torsades de pointes Pleural effusion Small cell lung cancer Surgical History H/O lymph node biopsy History of bronchoscopy History of cataract surgery History of thoracentesis (01/13/23) History of tonsillectomy History of tooth extraction Port-A-Cath in place (01/28/23) Family History Mother Diabetes Heart disease Father No problems noted. Sister No problems noted. Sister No problems noted. Brother No problems noted. Son No problems noted. Daughter No problems noted. 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 How many Children do You have: 3 Feels Safe at Home: Yes Safety Concerns: Feels Safe At This Time Diet: regular caffeine: Yes (coffee, soda) during the past year weight has: decreased > 10 lbs Dental Care, Regularly: No Assistive Devices: Cane, Glasses, Walker and Wheelchair Results & Data Vital Signs (Past 12 Hours) Vital Signs Temp Pulse Pulse Pulse Resp BP BP 09/27/24 07:36 93 H 09/27/24 06:48 169/92 H 09/27/24 05:49 09/27/24 04:15 36.5 C 95 H 20 09/27/24 04:02 100 H 09/27/24 03:37 09/27/24 02:11 37.1 C 106 H 20 09/27/24 00:30 111 H 24 163/116 H 09/27/24 00:13 120 H 09/26/24 23:45 09/26/24 23:30 36.7 C 115 H 20 119/79 BP Pulse Ox O2 Del Method 09/27/24 07:36 09/27/24 06:48 09/27/24 05:49 Room Air 09/27/24 04:15 177/114 H 99 Room Air 09/27/24 04:02 09/27/24 03:37 Room Air 09/27/24 02:11 168/116 H 99 Room Air 09/27/24 00:30 100 Room Air 09/27/24 00:13 09/26/24 23:45 97 Room Air 09/26/24 23:30 98
--- NOTE | 2024-09-27 08:15 | Hospitalist Progress Note ---
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 Patient presented after referral by oncology due to weakness. He was found to have a white count 25.77, lactate 2.3, tachycardia (HR 120), procalcitonin greater than 100. Patient is extremely dry and suspect these elevations secondary to dehydration however infection remains on differential. No signs of pulmonary infection. Further workup is pending at time of admission. 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 [facility] Continue Megace discussion with palliative care , agreement to involve moderate continue any cancer directed therapies and transitioning focus to comfort however this will not be in hospital at this moment but consideration of home with hospice or [facility]p on hospice. Because of the patient uncomfortable state reinstituting as needed Zyprexa and adding parenteral opiate therapy. My fear is he is going to continue to decline and may need to transition to comfort care in a more timely fashion #leukocytosis - WBC 25.77 with neutrophil predominance. Lactate 2.3. Procalcitonin greater than 100. CXR negative. Relatively asymptomatic. does have history of MRSA nares and has [facility] respiratory bio fire - negative for acute infection, chest imaging without pneumonia Follow blood cultures, urine culture ( ua with blood and LE) MRSA swab positive - 2 hr repeat lactic acid ordered continue cefepime with immunocompromise status, will not cover mrsa unless confirmed bacteremia Received 1L NSS bolus in ED, continue NSS at 200 mL/hr x 1L from ED - transition to LR @ 100 ml/hr #Dehydration -improving however poor volitional po intake #PINKY -resolving #generalized weakness/back pain patient lives at home alone Tylenol as needed, continue home oxycodone as needed, adding parenteral morphine 09/27/24 PT/OT consulted #COPD/MAC continue home inhalers. Nonhypoxic at time of admission. VTE ppx: heparin Overall outlook is poor as pt has a high risk of decompensation, now without hope of treatment course and some delerium not clear if from advancement of executive producer disease, will continue to discuss with family regarding transition to hospice Admission and Anticipated Discharge Date Admission Date: September 27, 2024 Subjective pt was moaning and uncomfortable but could not exactly explain why. did have palliative see pt and plans for discharge to home or snf with eventual transition to hospice pt was following commands but then not able to adequately explain what was making him unconfortable Physical Exam Physical Exam: pleasant, uncomfortable, appears anxious cardiac is regular to tachycardic lungs are diminished but without focal loss Results & Data Results & Data Vital Signs (Past 12 Hours) Vital Signs Temp Pulse Pulse Pulse Resp BP BP 09/27/24 08:06 97.5 F L 94 H 20 180/104 H 09/27/24 07:36 93 H 09/27/24 06:48 169/92 H 09/27/24 05:49 09/27/24 04:15 97.7 F 95 H 20 09/27/24 04:02 100 H 09/27/24 03:37 09/27/24 02:11 98.8 F 106 H 20 09/27/24 00:30 111 H 24 163/116 H 09/27/24 00:13 120 H 09/26/24 23:45 09/26/24 23:30 98.1 F 115 H 20 119/79 BP Pulse Ox O2 Del Method 09/27/24 08:06 98 Room Air 09/27/24 07:36 09/27/24 06:48 09/27/24 05:49 Room Air 09/27/24 04:15 177/114 H 99 Room Air 09/27/24 04:02 09/27/24 03:37 Room Air 09/27/24 02:11 168/116 H 99 Room Air 09/27/24 00:30 100 Room Air 09/27/24 00:13 09/26/24 23:45 97 Room Air 09/26/24 23:30 98 Laboratory Results reviewed cbc' reviewed chemistry discussed case wtih palliative care PG Care Time/CCT Total # of Minutes Spent Total Time Spent with Patient: Total time spent is greater than 50% in coordination of care (as documented) at patient's floor/unit and/or counseling patient: Coding Level of Care Code 83744 SUB INP/OBS CARE 3/50MIN Diagnoses Leukocytosis D72.829 Dehydration E86.0 PINKY (acute kidney injury) N17.9 Generalized weakness R53.1
[2024-09-27 08:35] LABS: Hematocrit (blood only) 30.3 % (42.0-52.0); Hemoglobin 10.5 g/dl (14.0-18.0); Mean Corpuscular Hemoglobin 34.2 pg (25.0-34.0); Mean Corpuscular Volume 98.7 fL (80.0-100.0); Platelet Count 343 K/uL (130-400); RDW Standard Deviation 58.6 fL (36.4-46.3); Red Blood Count 3.07 M/uL (4.70-6.10); White Blood Count 21.34 K/ul (4.8-10.8)
[2024-09-27 09:05] LABS: Immature Granulocytes # (auto) 0.17 K/uL (0.01-0.20); Immature Granulocytes % (auto) 0.8 %; Polychromasia 1+
--- NOTE | 2024-09-27 09:22 | Palliative Care Consultation ---
Date of Consultation September 27, 2024 Assessment & Plan (1) Dyspnea and respiratory abnormalities: (2) Cancer related pain: (3) Generalized weakness: (4) Advanced care planning/counseling discussion: A face to face ACP meeting was held at bedside with patient for 60 minutes We called his son for an additional 20min, total ACP time was 20min Discussion about the progression of his cancer, declining performance status, worsening complications, progressive anorexia, weakness, and overall he is feeling that his ability to tolerate his therapies and move through the course of his days has become very difficult. He states that he knew the cancer would not be curable but that he is also grateful for the time that treatment to date gave him and acknowledges that without the therapy he would not have had this extra time. He knows that he wants to focus on his comfort and his quality of life. Ideally he would like to be at home but understands there may be some limitations due to the availability of an [id number] caregiver. His son is very supportive but acknowledges that there may be some limitations. He works full-time and will not be able to be at the house around the clock. His may help but he is unsure if she would want to be a full-time caregiver and they all agreed to have further conversations as a family tonight when everyone is available. We went over hospice: I provided education about the hospice benefit: an interdisciplinary program offered by nurses, nurses aides, social workers, chaplains and a bilingual medical receptionist for patients with a terminal condition and a life expectancy of less than 6 months. This is covered by Medicare at 100%/no out of pocket expense to patient and all meds/supplies needed by patient for the reason they are on hospice are paid for/covered by hospice. The goal is assure quality of life of the patient in their home setting (home, fci, inpatient hospice setting) by providing symptoms management, psychosocial and spiritual support. However, they cannot offer 24 hours care and if the family is unable to provide that care, they will have to consider personal care with out of pocket cost vs. fci placement. We discussed the goals of hospice as a patient service and the goals of care; we discussed EOL trajectories and transitions shar the emotional impact of realizing mortality as a concrete reality from prior abstract considerations. Pt was reassured that no matter where they are along this trajectory, they are not alone - their medical team will remain by their side through their journey. Discussed the pros/cons of accepting help when especially weakened and distressed by pain-which would also help provide relief/decrease caregiver burden/strain. Discussed the option of discharge to a fci for comfort care with the addition of hospice if possible. Advised them that sometimes insurances will not cover both fci and hospice and in those instances, patients may be discharged to the fci and beyond what is referred to often is a comfort plan of care at the fci which is essentially similar to an end-of-life plan of care provided to the patient by the fci team. If hospice can be added to his care, this is an extra layer of support and services that will provide a benefit to both the patient and his family. They want to discuss this further as a family before making a final decision. They are in agreement that he is no longer continuing any cancer directed therapies and we are transitioning her focus to comfort. He feels some relief with his IV fluid hydration and would like to see if another day or 2 of this will help. We also discussed CODE STATUS. Patient was very quick to emphatically stated he does not want to be placed on any type of life support and does not wish to have any resuscitative efforts. He wants to have a natural and peaceful . He agrees that he would like manage medication given for comfort and symptom management through the dying process. (5) Palliative care by specialist: Introduced Palliative Medicine and explained our role in patient's care. Patient and/or family were receptive to palliative services for goals of care discussions. Reviewed we are different from hospice, a home health nurse visiting service. Plan ACP as noted above Family to discuss this evening when they are all available. They are leaning towards fci placement in a facility close to home with a focus on comfort and the addition of hospice if possible. I have updated the primary team, nursing, care management and oncology. Palliative medicine will continue to follow this patient. Thank you for allowing us to participate in the ongoing care of this patient. Please page with any additional concerns. Karla Irwin DNP Director, Palliative Medicine History of Present Illness Reason for Consultation: metastatic lung CA, failure to thrive Attending Physician: José Bolden MD History of Present Illness Johnnie Romero is a 63yo gentleman with metastatic SCLC. He came to ER with generalized weakness and FTT. WBC 25.77, lactate 2.3, tachycardia (HR 120), procalcitonin > 100. CXR negative Concurrent medical issues include: COPD/+active smoker/this is smoking related lung disease; HTN, history of torsades, MAC. The patient has received multiple courses of radiation therapy to the brain with his most recent course of fractionated stereotactic radiosurgery completing in November 2023. The patient is currently on lurbinectedin under the supervision of Dr. Golden. MRI has shown progression of disease. Numerous subependymal/epdendymal enhancing lesions with associated restricted diffusion. Allergies Allergy/AdvReac Type Severity Reaction Status Date / Time No Known Drug Allergies Allergy Verified 09/18/24 12:53 Home Medications Medication Instructions Recorded Confirmed Type albuterol sulfate 90 mcg/actuation 1 inh inhalation Q6H PRN shortness 12/25/22 09/27/24 Rx aerosol inhaler of breath or wheezing #8.5 grams acetaminophen 500 mg tablet 1,000 mg PO Q6H PRN Pain 01/21/23 09/27/24 History (Tylenol Extra Strength) fluticasone fur. 100 mcg-umeclid 1 inh inhalation DAILY #60 ea 06/29/23 09/27/24 Rx 62.5 mcg-vilant 25 mcg inhalat.powder (Trelegy Ellipta) dronabinol 5 mg capsule (Marinol) 5 mg PO TID 06/13/24 09/27/24 History oxycodone 5 mg tablet 5 mg PO Q6H PRN pain,severe 06/13/24 09/27/24 History memantine 10 mg tablet 10 mg PO BID To help memory #60 07/17/24 09/27/24 Rx tabs megestrol 40 mg tablet 40 mg PO BID 09/26/24 09/27/24 History ondansetron 8 mg disintegrating 8 mg PO Q8 PRN n/v 09/27/24 09/27/24 History tablet prochlorperazine maleate 10 mg 10 mg PO Q6 PRN n/v 09/27/24 09/27/24 History tablet Patient History Medical History Anemia Atherosclerosis of lower extremity with intermittent claudication COPD (chronic obstructive pulmonary disease) History of torsades de pointes Pleural effusion Small cell lung cancer Surgical History H/O lymph node biopsy History of bronchoscopy History of cataract surgery History of thoracentesis (01/13/23) History of tonsillectomy History of tooth extraction Port-A-Cath in place (01/28/23) Family History Mother Diabetes Heart disease Father No problems noted. Sister No problems noted. Sister No problems noted. Brother No problems noted. Son No problems noted. Daughter No problems noted. 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 How many Children do You have: 3 Feels Safe at Home: Yes Safety Concerns: Feels Safe At This Time Diet: regular caffeine: Yes (coffee, soda) during the past year weight has: decreased > 10 lbs Dental Care, Regularly: No Assistive Devices: Cane, Glasses, Walker and Wheelchair Review of Systems Review of Systems: All systems reviewed & are unremarkable except as noted in Subjective Physical Exam Constitutional: + ill appearing, + cachectic, + physical limitations, + frail appearing, cooperative, + in distress and + malnourished Eyes: decreased acuity right, limited vision left ENMT: Ears: + hearing impairment Mouth: + muffled voice, + dry oral mucous membranes, + poor dentition and + chipped teeth Throat: uvula midline Neck: trachea midline; neck nontender Thyroid: normal thyroid Respiratory: + uses accessory muscles, + cough, able to speak in complete sentences and symmetric chest movement Auscultation: + diminished lung sounds and + rhonchi Cardiovascular: Rate/Rhythm: regular rate Heart Sounds: normal S1 and normal S2 Palpation: normal PMI Gastrointestinal (Abdomen): Inspection/Auscultation: + scaphoid Percussion/Palpation: abdomen soft and normal to percussion; no guarding and abdomen not rigid Musculoskeletal: gen weakness ROM limited/crepitus BUE Skin: normal turgor, + turgor decreased, + skin atrophy, + dry skin, + patchy alopecia and + hair sheds easily Neurologic: AAOx3 Psychiatric: mild anxiety and intermittent tearful Results & Data Vital Signs (Past 12 Hours) Vital Signs Temp Pulse Pulse Pulse Resp BP BP 09/27/24 08:06 36.4 C L 94 H 20 180/104 H 09/27/24 07:36 93 H 09/27/24 06:48 169/92 H 09/27/24 05:49 09/27/24 04:15 36.5 C 95 H 20 09/27/24 04:02 100 H 09/27/24 03:37 09/27/24 02:11 37.1 C 106 H 20 09/27/24 00:30 111 H 24 163/116 H 09/27/24 00:13 120 H 09/26/24 23:45 09/26/24 23:30 36.7 C 115 H 20 119/79 BP Pulse Ox O2 Del Method 09/27/24 08:06 98 Room Air 09/27/24 07:36 09/27/24 06:48 09/27/24 05:49 Room Air 09/27/24 04:15 177/114 H 99 Room Air 09/27/24 04:02 09/27/24 03:37 Room Air 09/27/24 02:11 168/116 H 99 Room Air 09/27/24 00:30 100 Room Air 09/27/24 00:13 09/26/24 23:45 97 Room Air 09/26/24 23:30 98 Laboratory Results 09/27/24 09/27/24 09/27/24 Range/Units 07:35 06:07 04:45 WBC 21.34 H (4.8-10.8) K/ul RBC 3.07 L (4.70-6.10) M/uL Hgb 10.5 L (14.0-18.0) g/dl Hct 30.3 L (42.0-52.0) % MCV 98.7 (80.0-100.0) fL MCH 34.2 H (25.0-34.0) pg MCHC 34.7 (32.0-36.0) g/dL RDW Std Deviation 58.6 H (36.4-46.3) fL RDW Coeff of Antony 16.9 H (11.5-14.5) % Plt Count 343 (130-400) K/uL MPV 10.2 (9.4-12.4) fL Immature Gran % (Auto) 0.8 % Neut % (Auto) 90.1 % Lymph % (Auto) 1.7 % Good[place] % (Auto) 7.2 % Eos % (Auto) 0.0 % Baso % (Auto) 0.2 % Neut # (Auto) 19.23 H (1.40-6.50) K/uL Lymph # (Auto) 0.37 L (1.20-3.40) K/uL [place] # (Auto) 1.53 H (0.11-0.59) K/uL Eos # (Auto) 0.00 (0.00-0.50) K/uL Baso # (Auto) 0.04 (0.00-0.20) K/uL Immature Gran # (Auto) 0.17 (0.01-0.20) K/uL Polychromasia 1+ Echinocytes 1+ PT (9.0-12.0) Seconds INR (0.9-1.1) Sodium 135 L (136-145) mmol/L Potassium 3.7 (3.5-5.1) mmol/L Chloride 104 (98-107) mmol/L Carbon Dioxide 17 L (21-32) mmol/L Anion Gap 14 H (3-11) BUN 38 H (6-23) mg/dl Creatinine 1.01 (0.6-1.4) mg/dl Est Cr Clr Drug Dosing 41.7 ml/min eGFR 83.05 BUN/Creatinine Ratio 37.6 H (10-20) Glucose 101 H (70-99(Fasting)) mg/dl Lactate 2.1 H* (0.4-2.0) mmol/L Calcium 8.7 (8.6-10.3) mg/dl Phosphorus 3.8 (2.5-4.9) mg/dl Magnesium 1.9 (1.7-2.4) mg/dl Total Bilirubin (0.2-1.0) mg/dl AST (13-39) U/L ALT (7-52) U/L Alkaline Phosphatase (34-104) U/L Troponin I High Sens (0-20) pg/ml Total Protein (6.0-8.3) gm/dl Albumin 3.5 (3.4-5.0) gm/dl Globulin (2.5-4.0) gm/dl Albumin/Globulin Ratio (0.9-2) Lipase (11-82) U/L Procalcitonin (0-0.5) ng/ml TSH (0.300-4.500) uIu/ml Urine Color Urine Appearance (Clear) Urine pH (4.5-7.5) Ur Specific [place] (1.000-1.030) Urine Protein (Negative) Urine Glucose (UA) (Negative) Urine Ketones (Negative) Urine Blood (Negative) Urine Nitrite (Negative) Urine Bilirubin (Negative) Urine Urobilinogen (Negative) Ur Leukocyte Esterase (Negative) Urine WBC (Auto) (0-5) /hpf Urine RBC (Auto) (0-2) /hpf U Hyaline Cast (Auto) (0-2) /lpf U Epithel Cells (Auto) (0-2) /hpf Urine Bacteria (Auto) (None Seen) Urine Comment Nasal Screen MRSA (PCR) Positive A (Negative) Adenovirus (PCR) (NotDetected) B. pertussis DNA (PCR) (NotDetected) B.parapertussis DNA PCR (NotDetected) C. pneumoniae DNA (PCR) (NotDetected) Coronavirus OC43 (PCR) (NotDetected) Coronavirus HKU1 (PCR) (NotDetected) Coronavirus 229E (PCR) (NotDetected) SARS-CoV-2 (PCR) (NotDetected) Coronavirus NL63 (PCR) (NotDetected) Human Metapneumovir PCR (NotDetected) Influenza Type A (PCR) (NotDetected) Influenza Type B (PCR) (NotDetected) M. pneumoniae (PCR) (NotDetected) Parainfluenza 1 (PCR) (NotDetected) Parainfluenza 2 (PCR) (NotDetected) Parainfluenza 3 (PCR) (NotDetected) Parainfluenza 4 (PCR) (NotDetected) RSV (PCR) (NotDetected) Entero/Rhino (PCR) (NotDetected) 09/27/24 09/27/24 09/27/24 Range/Units 02:25 02:10 00:19 WBC (4.8-10.8) K/ul RBC (4.70-6.10) M/uL Hgb (14.0-18.0) g/dl Hct (42.0-52.0) % MCV (80.0-100.0) fL MCH (25.0-34.0) pg MCHC (32.0-36.0) g/dL RDW Std Deviation (36.4-46.3) fL RDW Coeff of Antony (11.5-14.5) % Plt Count (130-400) K/uL MPV (9.4-12.4) fL Immature Gran % (Auto) % Neut % (Auto) % Lymph % (Auto) % [place] % (Auto) % Eos % (Auto) % Baso % (Auto) % Neut # (Auto) (1.40-6.50) K/uL Lymph # (Auto) (1.20-3.40) K/uL [place] # (Auto) (0.11-0.59) K/uL Eos # (Auto) (0.00-0.50) K/uL Baso # (Auto) (0.00-0.20) K/uL Immature Gran # (Auto) (0.01-0.20) K/uL Polychromasia Echinocytes PT (9.0-12.0) Seconds INR (0.9-1.1) Sodium (136-145) mmol/L Potassium (3.5-5.1) mmol/L Chloride (98-107) mmol/L Carbon Dioxide (21-32) mmol/L Anion Gap (3-11) BUN (6-23) mg/dl Creatinine (0.6-1.4) mg/dl Est Cr Clr Drug Dosing ml/min eGFR BUN/Creatinine Ratio (10-20) Glucose (70-99(Fasting)) mg/dl Lactate 2.3 H* (0.4-2.0) mmol/L Calcium (8.6-10.3) mg/dl Phosphorus (2.5-4.9) mg/dl Magnesium (1.7-2.4) mg/dl Total Bilirubin (0.2-1.0) mg/dl AST (13-39) U/L ALT (7-52) U/L Alkaline Phosphatase (34-104) U/L Troponin I High Sens (0-20) pg/ml Total Protein (6.0-8.3) gm/dl Albumin (3.4-5.0) gm/dl Globulin (2.5-4.0) gm/dl Albumin/Globulin Ratio (0.9-2) Lipase (11-82) U/L Procalcitonin (0-0.5) ng/ml TSH (0.300-4.500) uIu/ml Urine Color Yellow Urine Appearance Clear (Clear) Urine pH 5.5 (4.5-7.5) Ur Specific [place] 1.024 (1.000-1.030) Urine Protein Trace H (Negative) Urine Glucose (UA) Negative (Negative) Urine Ketones Trace H (Negative) Urine Blood 2+ H (Negative) Urine Nitrite Negative (Negative) Urine Bilirubin Negative (Negative) Urine Urobilinogen Negative (Negative) Ur Leukocyte Esterase Trace H (Negative) Urine WBC (Auto) 0-5 (0-5) /hpf Urine RBC (Auto) >20 H (0-2) /hpf U Hyaline Cast (Auto) 0-2 (0-2) /lpf U Epithel Cells (Auto) 0-2 (0-2) /hpf Urine Bacteria (Auto) None Seen (None Seen) Urine Comment Nasal Screen MRSA (PCR) (Negative) Adenovirus (PCR) Not Detected (NotDetected) B. pertussis DNA (PCR) Not Detected (NotDetected) B.parapertussis DNA PCR Not Detected (NotDetected) C. pneumoniae DNA (PCR) Not Detected (NotDetected) Coronavirus OC43 (PCR) Not Detected (NotDetected) Coronavirus HKU1 (PCR) Not Detected (NotDetected) Coronavirus 229E (PCR) Not Detected (NotDetected) SARS-CoV-2 (PCR) Not Detected (NotDetected) Coronavirus NL63 (PCR) Not Detected (NotDetected) Human Metapneumovir PCR Not Detected (NotDetected) Influenza Type A (PCR) Not Detected (NotDetected) Influenza Type B (PCR) Not Detected (NotDetected) M. pneumoniae (PCR) Not Detected (NotDetected) Parainfluenza 1 (PCR) Not Detected (NotDetected) Parainfluenza 2 (PCR) Not Detected (NotDetected) Parainfluenza 3 (PCR) Not Detected (NotDetected) Parainfluenza 4 (PCR) Not Detected (NotDetected) RSV (PCR) Not Detected (NotDetected) Entero/Rhino (PCR) Not Detected (NotDetected) 09/27/24 Range/Units 00:15 WBC 25.77 H (4.8-10.8) K/ul RBC 3.37 L (4.70-6.10) M/uL Hgb 11.4 L (14.0-18.0) g/dl Hct 33.4 L (42.0-52.0) % MCV 99.1 (80.0-100.0) fL MCH 33.8 (25.0-34.0) pg MCHC 34.1 (32.0-36.0) g/dL RDW Std Deviation 60.5 H (36.4-46.3) fL RDW Coeff of Antony 17.0 H (11.5-14.5) % Plt Count 436 H (130-400) K/uL MPV 10.2 (9.4-12.4) fL Immature Gran % (Auto) 0.7 % Neut % (Auto) 90.4 % Lymph % (Auto) 1.3 % [place] % (Auto) 7.4 % Eos % (Auto) 0.0 % Baso % (Auto) 0.2 % Neut # (Auto) 23.27 H (1.40-6.50) K/uL Lymph # (Auto) 0.34 L (1.20-3.40) K/uL [place] # (Auto) 1.91 H (0.11-0.59) K/uL Eos # (Auto) 0.00 (0.00-0.50) K/uL Baso # (Auto) 0.06 (0.00-0.20) K/uL Immature Gran # (Auto) 0.19 (0.01-0.20) K/uL Polychromasia Echinocytes 1+ PT 11.5 (9.0-12.0) Seconds INR 1.1 (0.9-1.1) Sodium 137 (136-145) mmol/L Potassium 3.7 (3.5-5.1) mmol/L Chloride 103 (98-107) mmol/L Carbon Dioxide 22 (21-32) mmol/L Anion Gap 12 H (3-11) BUN 39 H (6-23) mg/dl Creatinine 1.24 (0.6-1.4) mg/dl Est Cr Clr Drug Dosing 34.0 ml/min eGFR 64.93 BUN/Creatinine Ratio 31.5 H (10-20) Glucose 98 (70-99(Fasting)) mg/dl Lactate (0.4-2.0) mmol/L Calcium 9.5 (8.6-10.3) mg/dl Phosphorus (2.5-4.9) mg/dl Magnesium 2.2 (1.7-2.4) mg/dl Total Bilirubin 1.2 H (0.2-1.0) mg/dl AST 40 H (13-39) U/L ALT 21 (7-52) U/L Alkaline Phosphatase 261 H (34-104) U/L Troponin I High Sens 17.8 (0-20) pg/ml Total Protein 7.0 (6.0-8.3) gm/dl Albumin 4.0 (3.4-5.0) gm/dl Globulin 3.0 (2.5-4.0) gm/dl Albumin/Globulin Ratio 1.3 (0.9-2) Lipase 25 (11-82) U/L Procalcitonin > 100.00 H (0-0.5) ng/ml TSH 1.533 (0.300-4.500) uIu/ml Urine Color Urine Appearance (Clear) Urine pH (4.5-7.5) Ur Specific [place] (1.000-1.030) Urine Protein (Negative) Urine Glucose (UA) (Negative) Urine Ketones (Negative) Urine Blood (Negative) Urine Nitrite (Negative) Urine Bilirubin (Negative) Urine Urobilinogen (Negative) Ur Leukocyte Esterase (Negative) Urine WBC (Auto) (0-5) /hpf Urine RBC (Auto) (0-2) /hpf U Hyaline Cast (Auto) (0-2) /lpf U Epithel Cells (Auto) (0-2) /hpf Urine Bacteria (Auto) (None Seen) Urine Comment Nasal Screen MRSA (PCR) (Negative) Adenovirus (PCR) (NotDetected) B. pertussis DNA (PCR) (NotDetected) B.parapertussis DNA PCR (NotDetected) C. pneumoniae DNA (PCR) (NotDetected) Coronavirus OC43 (PCR) (NotDetected) Coronavirus HKU1 (PCR) (NotDetected) Coronavirus 229E (PCR) (NotDetected) SARS-CoV-2 (PCR) (NotDetected) Coronavirus NL63 (PCR) (NotDetected) Human Metapneumovir PCR (NotDetected) Influenza Type A (PCR) (NotDetected) Influenza Type B (PCR) (NotDetected) M. pneumoniae (PCR) (NotDetected) Parainfluenza 1 (PCR) (NotDetected) Parainfluenza 2 (PCR) (NotDetected) Parainfluenza 3 (PCR) (NotDetected) Parainfluenza 4 (PCR) (NotDetected) RSV (PCR) (NotDetected) Entero/Rhino (PCR) (NotDetected) Diagnostic Findings Chest X-Ray 09/27/24 00:00 EXAM: XR chest 1V portable CLINICAL HISTORY: weakness, sob TECHNIQUE: An X-ray image of the chest is obtained in AP projection. COMPARISON: Compared with previous CT dated 06/16/2024. FINDINGS: Pulmonary Parenchyma: The small right upper lung zone nodules previously noted on previous CT study, could be clearly delineated by X ray. Reduced left lung volume with faint opacity seen at the left upper lung zone, mostly upper lobe collapse ( previously noted). No evidence of pleural effusion or pleural thickening. Heart and Mediastinum: Heart size and shape are normal. No mediastinal widening or masses. No hilar or mediastinal lymphadenopathy. Bony Thorax: Bony thorax appears intact without fractures or deformities. Soft Tissues: Soft tissues overlying the chest wall are unremarkable. Evidence of central venous line with its tip seen well positioned at the cavo-atrial junction. ( new) There is a tube shadow with its tip projecting over the mediastinum.( new) IMPRESSION: 1. The small right upper lung zone nodules previously noted on CT study dated 06/16/2024 , could be clearly delineated by X ray. 2. Reduced left lung volume with faint opacity seen at the left upper lung zone, mostly left upper lobe collapse (previously noted). 3. Evidence of central venous line with its tip seen well positioned at the cavo-atrial junction. ( new) Head CT 09/27/24 00:00 CLINICAL HISTORY: hx brain mets, incr weakness TECHNIQUE: Axial non-contrast CT scan of the brain was performed from the skull base to the high parietal region. One of the following dose reduction techniques were utilized for this exam: Automated exposure control, adjustment of the mA and/or kV according to patient size, use of iterative reconstruction. CTDI: 34.62 mGy, DLP: 625.8 mGy.cm COMPARISON: None. FINDINGS: Brain Parenchyma: Parenchymal volume loss with capacious CSF spaces. Periventricular hypodensities could be related to periventricular small vessel disease. Subcentimeter bilateral hypodensities are noted in the basal ganglia and right thalamus. No evidence of acute hemorrhage. Ventricular System: No evidence of hydrocephalus or ventricular hemorrhage. Subarachnoid Spaces: Prominent sulci and cisterns. No evidence of subarachnoid hemorrhage or extra-axial fluid collections. Cerebellum and Brainstem: No masses, lesions, or areas of abnormal density. Orbits: No evidence of orbital masses or abnormal density. Air is noted in the bilateral retro-bulbar region. Please correlate clinically. Sinuses: Partial opacification of the left maxillary sinus with air bubbles. Mastoid Air Cells: Partial opacification of the inferior part of the left mastoid air cells. Skull: Normal skull morphology. IMPRESSION: 1. No evidence of acute brain hemorrhage. 2. No evidence of a definite intra-axial space-occupying lesion; however, small metastatic deposits cannot be ruled out. Correlation with contrast-enhanced brain MRI may be considered. 3. Parenchymal volume loss with capacious CSF spaces and likely periventricular small vessel disease. 4. Subcentimeter bilateral basal ganglia and right thalamic hypodensities could represent old lacunar infarcts. In the clinical suspicion of acute infarction, please correlate with brain MRI with an ADC map. 5. Partial opacification of the left maxillary sinus and the left mastoid air cells. Clinical correlation is advised to assess for acute sinusitis and mild left mastoiditis Electronically signed by Surya Remy 09-27-2024 01:38 AM PG Care Time/CCT Total # of Minutes Spent Total Time Spent with Patient: Total time spent is greater than 50% in coordination of care (as documented) at patient's floor/unit and/or counseling patient: I spent 145 minutes overall addressing this case: 15 min in medical data review/discussion with referring provider(s) and/or preparation for the visit 20 min in direct interaction with the patient/exam 80 min in Advance Care Planning/Goals of Care discussions as detailed above in note (must be >16min) 15 min in subsequent review and synthesis of assessment and plan 15 min communicating with other providers regarding the patient's case: Primary team, oncology, nursing, healthcare account manageronline communications manager Care Planning 41986 Advanced Care Planning 30 Min 28245 Advanced Care Planning Additional 30 [place] [address] IN/OBS CONSULT LVL 4,60M (25 - SIGNIFICANT, SEPARATELY IDENTIFIABLE ) Patient Type New Medical Decision Making High Complexity Diagnoses Dyspnea and respiratory abnormalities R06.00; R06.89 Cancer related pain G89.3 Generalized weakness R53.1 Advanced care planning/counseling discussion Z71.89 Palliative care by specialist Z51.5 Additional Codes Advanced Care Planning - 41725 Advanced Care Planning Additional 30 Min: 51411 Advanced Care Planning Additional 30 Min ([id number]) Advanced Care Planning - 59786 Advanced Care Planning 30 Min: 00532 Advanced Care Planning 30 Min ([id number]) Comment [id number], [id number]
[2024-09-27] MEDS: FLUTICASONE FUROATE 100MCG 14 PUFFS/INHALER INH SCH (09:48)
[2024-09-27] MEDS: UMECLIDINIUM/VILANTEROL 62.5/25MCG 7 PUFFS/INHALER INH SCH (09:48)
[2024-09-27] MEDS: MEGESTROL ACETATE 40 MG TAB PO SCH (09:49)
[2024-09-27] MEDS: HEPARIN SOD 5,000 UNIT/0.5 ML VIAL SQ SCH (10:01)
[2024-09-27] MEDS: MEMANTINE HCL 10 MG TAB PO SCH (11:23)
--- NOTE | 2024-09-27 13:05 | Electrocardiogram Report ---
Test Reason : Blood Pressure : */* mmHG Vent. Rate : 122 BPM Atrial Rate : 122 BPM P-R Int : 128 ms QRS Dur : 74 ms QT Int : 324 ms P-R-T Axes : 85 -65 89 degrees QTcB Int : 461 ms Sinus tachycardia Possible Left atrial enlargement Left axis deviation Anteroseptal infarct (cited on or before 22-Jun-2016) Abnormal ECG When compared with ECG of 28-Jan-2023 06:11, Vent. rate has increased by 41 bpm QRS axis Shifted left T wave amplitude has decreased in Lateral leads Confirmed by Dean Aguilar ([id number]) on 09/27/2024 1:05:22 PM Referred By: REFERRED SELF Confirmed By: Dean Aguilar
[2024-09-27] MEDS: CEFEPIME 2000MG 2,000 MG/20 ML SYR IV SCH (14:18)
[2024-09-27] MEDS: MoRPHine SULFATE 4 MG/ML 1 ML CARP\\VIAL IV PRN (20:53)
[2024-09-27] MEDS: MoRPHine SULFATE 2 MG/ML CARP IV STA (23:21)
[2024-09-28 07:49] LABS: Hematocrit (blood only) 29.2 % (42.0-52.0); Hemoglobin 10.0 g/dl (14.0-18.0); Mean Corpuscular Hemoglobin 34.1 pg (25.0-34.0); Mean Corpuscular Volume 99.7 fL (80.0-100.0); Platelet Count 318 K/uL (130-400); RDW Standard Deviation 61.2 fL (36.4-46.3); Red Blood Count 2.93 M/uL (4.70-6.10); White Blood Count 24.62 K/ul (4.8-10.8)
[2024-09-28 08:02] LABS: Anion Gap 9.0 (3-11); Blood Urea Nitrogen 20.0 mg/dl (6-23); Calcium 8.4 mg/dl (8.6-10.3); Carbon Dioxide 24.0 mmol/L (21-32); Chloride 105.0 mmol/L (98-107); Creatinine Clr Calc Pharmacy 61.6 ml/min; Glucose 69.0 mg/dl (70-99(Fasting)); Magnesium 1.6 mg/dl (1.7-2.4); Potassium 3.7 mmol/L (3.5-5.1); Sodium 138.0 mmol/L (136-145)
[2024-09-28 08:19] LABS: Immature Granulocytes # (auto) 0.19 K/uL (0.01-0.20); Immature Granulocytes % (auto) 0.8 %; Polychromasia 1+
[2024-09-28] MEDS: MAGNESIUM OXIDE 400 MG TAB PO SCH (08:55)
--- NOTE | 2024-09-28 10:52 | Electrocardiogram Report ---
Test Reason : Blood Pressure : */* mmHG Vent. Rate : 97 BPM Atrial Rate : 97 BPM P-R Int : 108 ms QRS Dur : 78 ms QT Int : 356 ms P-R-T Axes : * -39 85 degrees QTcB Int : 452 ms Sinus rhythm with short DE Left axis deviation Septal infarct (cited on or before 22-Jun-2016) Abnormal ECG When compared with ECG of 26-Sep-2024 23:40, Questionable change in initial forces of Anterior leads Confirmed by Dean Aguilar ([id number]) on 09/28/2024 10:52:42 AM Referred By: REFERRED SELF Confirmed By: Dean Aguilar
--- NOTE | 2024-09-28 11:29 | Palliative Care Progress Note ---
Date of Service September 28, 2024 Assessment & Plan (1) Palliative care by specialist: Plan: Palliative care will continue to follow for ongoing EOL pt care and family support. (2) Advanced care planning/counseling discussion: Plan: Pt more lethargic today, unable to participate in GOC discussions. Phone call placed to pt's son to encourage visitation. (3) Comfort measures only status: Plan: Pt's son arrived at bedside along with pt's DIL and large group of other family members. We discussed GOC from 12:30 - 13:00. Pt was lethargic and did not participate in communication. Family expressed concern that pt was in a great deal of pain prior to getting morphine overnight. Pt's son expressed relief that pt appears to be resting comfortably now. We discussed prior plans for discharge to home vs SNF for hospice care and given the pt's decompensation over night, this may not be possible. Family encouraged that we transition to comfort directed care at this time and expressed relief that the pt may stay in hospital. We discussed that patient is exhibiting signs that he may be actively dying and encouraged visit ation. Anticipatory guidance offered. Discussed changes pt may move through in the dying process including but not limited to sleeping more, disorientation when awake, restlessness, diminished senses/inability to respond to stimulus although ability to be aware of them remains intact longer, and changes in body temperatures, skin changes/mottling/cyanosis, respiratory pattern changes, and oral secretions. Family verbalized understanding. The goal is to assure a peaceful . (4) Need for comfort care: Plan: Comfort plan of care parameters: 1. Patient/Family want hospice added to their care. 2. NO rehab/PT/OT 3. Strictly End of Life care only 4. NO escalation of care: do not increase oxygen, escalate therapies, etc. The focus is on comfort through end of life, assure this is accomplished with aggressive symptom management (i.e. relief of dyspnea, pain, etc.) 5. NO return to hospital 6. NO labs, imaging, surgery 7. Oral intake as desired for comfort and pleasure: NO dietary restriction, Allow permissive aspiration, do not withhold food or drink for concern of aspiration and allow PO for pleasure and comfort. 8. If difficulty urinating/commode/bedpan, ok to place Gomez catheter for comfort/hygiene/skin protection AND/OR Continue Gomez catheter for comfort/hygiene/skin protection 9. NO: calorie counts, artificial nutrition, feeding tubes or IV fluids EOL Symptom manamgement: Pain/dyspnea/tachypnea morphine 2mg IVP PRN [id number] Consider titratable morphine drip if pt requires >3 PRN doses in under two consecutive hours. Nausea/vomitting zofran 4mg IVP q4h PRN Agitation ativan 0.5mg IVP q4h PRN Hyperactive delirium haldol 5mg IVP q6h PRN Secretions - if repositioning not effective robinul 0.4mg IV q4h PRN atropine SL 3 drops Q1h PRN Nursing care: Discontinue all medications not directed towards comfort. Detether pt from IV tubing, monitor cables, and check vitals once per shift. Please continue HFNC and titrate down as able for patient comfort. Use medications above PRN for dyspnea/tachypnea and do not increase oxygen once titrated down. Assess q1h for pain/dyspnea and treat accordingly. Plan [employer], dispo pending Admission and Anticipated Discharge Date Admission Date: September 27, 2024 Subjective Assessed pt at bedside, he was sleeping - responsive to verbal / gentle tactile stimuli, but drifts quickly back to sleep. He appears comfortable, pale skin, and decreased respiratory effort, rate 6-8/min with frequent 10-15seconds periods of apnea. No visitors at bedside. Review of Systems Review of Systems: Unobtainable due to cognitive status Physical Exam Constitutional: + ill appearing, + cachectic, + frail ap pearing, + lethargic a nd + malnourished; not in distress Eyes: ENMT: Ears: + hearing impairment Mouth: + muffled voice, + dry oral mucous membranes, + poor dentition and + chipped teeth Neck: trachea midline, no thyromegaly Respiratory: + abnormal respiratory pattern, + prolon ged expiratory phase and symmetric chest movement; no respiratory distress Auscultation: + diminished lung sounds and + rhonchi decreased effort, frequent 10-15sec apneic periods Cardiovascular: Rate/Rhythm: regular rate Heart Sounds: normal S1 and normal S2 Palpation: normal PMI Gastrointestinal (Abdomen): Inspection/Auscultation: + scaphoid Percussion/Palpation: abdomen soft and normal to percussion; no guarding and abdomen not rigid Musculoskeletal: gen weakness Skin: + turgor decreased, + skin atrophy, + dr y skin, + pallor and + patchy alopecia Neurologic: obtunded Psychiatric: Orientation: alert and oriented to person Results & Data Vital Signs (Past 12 Hours) Vital Signs Temp Pulse Pulse Resp BP Pulse Ox O2 Del Method 09/28/24 11:13 36.2 C L 109 H 7 L 112/66 93 Room Air 09/28/24 08:55 Room Air 09/28/24 07:46 36.6 C 112 H 18 121/77 96 Room Air 09/28/24 05:42 98 H 09/28/24 04:12 36.4 C L 107 H 20 139/92 94 Room Air 09/28/24 01:54 36.4 C L 113 H 18 158/94 H 96 Room Air 09/27/24 23:44 37.0 C 102 H 20 155/73 H 97 Room Air Laboratory Results Abnormal lab results 09/28/24 Range/Units 06:14 WBC 24.62 H (4.8-10.8) K/ul RBC 2.93 L (4.70-6.10) M/uL Hgb 10.0 L (14.0-18.0) g/dl Hct 29.2 L (42.0-52.0) % MCH 34.1 H (25.0-34.0) pg RDW Std Deviation 61.2 H (36.4-46.3) fL RDW Coeff of Antony 17.4 H (11.5-14.5) % Neut # (Auto) 21.59 H (1.40-6.50) K/uL Lymph # (Auto) 0.42 L (1.20-3.40) K/uL [place] # (Auto) 2.37 H (0.11-0.59) K/uL BUN/Creatinine Ratio 27.8 H (10-20) Glucose 69 L (70-99(Fasting)) mg/dl Calcium 8.4 L (8.6-10.3) mg/dl Phosphorus 1.9 L D (2.5-4.9) mg/dl Magnesium 1.6 L (1.7-2.4) mg/dl Albumin 3.2 L (3.4-5.0) gm/dl Diagnostic Findings Chest X-Ray 09/27/24 00:00 EXAM: XR chest 1V portable CLINICAL HISTORY: weakness, sob TECHNIQUE: An X-ray image of the chest is obtained in AP projection. COMPARISON: Compared with previous CT dated 06/16/2024. FINDINGS: Pulmonary Parenchyma: The small right upper calista zone nodules previously noted on previous CT study, could be clearly delineated by X ray. Reduced left lung volume with faint opacity seen at the left upper lung zone, mostly upper lobe collapse ( previously noted). No evidence of pleural effusion or pleural thickening. Heart and Mediastinum: Heart size and shape are normal. No mediastinal widening or masses. No hilar or mediastinal lymphadenopathy. Bony Thorax: Bony thorax appears intact without fractures or deformities. Soft Tissues: Soft tissues overlying the chest wall are unremarkable. Evidence of central venous line with its tip seen well positioned at the cavo-atrial junction. ( new) There is a tube shadow with its tip projecting over the mediastinum.( new) IMPRESSION: 1. The small right upper lung zone nodules previously noted on CT study dated 06/16/2024 , could be clearly delineated by X ray. 2. Reduced left lung volume with faint opacity seen at the left upper lung zone, mostly left upper lobe collapse (previously noted). 3. Evidence of central venous line with its tip seen well positioned at the cavo-atrial junction. ( new) Electronically signed by Surya eRmy 09-27-2024 02:[address] 09/27/24 00:00 EXAM: CT head/brain wo con CLINICAL HISTORY: hx brain mets, incr weakness TECHNIQUE: Axial non-contrast CT scan of the brain was performed from the skull base to the high parietal region. One of the following dose reduction techniques were utilized for this exam: Automated exposure control, adjustment of the mA and/or kV according to patient size, use of iterative reconstruction. CTDI: 34.62 mGy, DLP: 625.8 mGy.cm COMPARISON: None. FINDINGS: Brain Parenchyma: Parenchymal volume loss with capacious CSF spaces. Periventricular hypodensities could be related to periventricular small vessel disease. Subcentimeter bilateral hypodensities are noted in the basal ganglia and right thalamus. No evidence of acute hemorrhage. Ventricular System: No evidence of hydrocephalus or ventricular hemorrhage. Subarachnoid Spaces: Prominent sulci and cisterns. No evidence of subarachnoid hemorrhage or extra-axial fluid collections. Cerebellum and Brainstem: No masses, lesions, or areas of abnormal density. Orbits: No evidence of orbital masses or abnormal density. Air is noted in the bilateral retro-bulbar region. Please correlate clinically. Sinuses: Partial opacification of the left maxillary sinus with air bubbles. Mastoid Air Cells: Partial opacification of the inferior part of the left mastoid air cells. Skull: Normal skull morphology. IMPRESSION: 1. No evidence of acute brain hemorrhage. 2. No evidence of a definite intra-axial space-occupying lesion; however, small metastatic deposits cannot be ruled out. Correlation with contrast-enhanced brain MRI may be considered. 3. Parenchymal volume loss with capacious CSF spaces and likely periventricular small vessel disease. 4. Subcentimeter bilateral basal ganglia and right thalamic hypodensities could represent old lacunar infarcts. In the clinical suspicion of acute infarction, please correlate with brain MRI with an ADC map. 5. Partial opacification of the left maxillary sinus and the left mastoid air cells. Clinical correlation is advised to assess for acute sinusitis and mild left mastoiditis Electronically signed by Surya Remy 09-27-2024 01:38 AM Medications Administered Current Inpatient Medications Acetaminophen (Acetaminophen 500 Mg Tab) 1,000 mg PO Q6H PRN PRN Reason: Pain Stop: 10/27/24 04:01 Albuterol (Albuterol Hfa 8 Gm Inhaler) 1 puffs INH Q6H PRN PRN Reason: shortness of breath or wheezin Stop: 10/27/24 04:01 Docusate Sodium (Docusate Sodium 100 Mg Cap) 100 mg PO BID PRN PRN Reason: Constipation Stop: 10/27/24 04:01 Fluticasone Furoate (Fluticasone Furoate 100mcg 14 Puffs/Inhaler) 1 puffs INH DAILY [facility] Stop: 10/27/24 08:59 Last Admin: 09/28/24 08:22 Dose: 1 puffs Heparin Sodium (Porcine) (Heparin Sod 5,000 Unit/0.5 Ml Vial) 5,000 units SQ Q12 [facility] Stop: 10/27/24 08:59 Last Admin: 09/28/24 08:22 Dose: 5,000 units Heparin Sodium (Porcine) (Heparin 100 Unit/Ml 5ml Flush) 5 ml FLUSH PRN PRN PRN Reason: Flush Stop: 10/27/24 05:41 Lactated Ringer's (Lr) 1,000 mls @ 100 mls/hr IV .Q10H [facility] Stop: 09/30/24 02:59 Last Admin: 09/28/24 10:44 Dose: 100 mls/hr Cefepime HCl (Maxipime 2000mg) 2,000 mg in 20 mls @ 5 mls/min IV Q12H [facility]; Protocol Stop: 09/29/24 13:59 Last Admin: 09/28/24 01:56 Dose: 5 mls/min Magnesium Oxide (Magnesium Oxide 400 Mg Tab) 400 mg PO BID [facility] Stop: 10/28/24 08:59 Last Admin: 09/28/24 08:55 Dose: 400 mg Megestrol Acetate (Megestrol Acetate 40 Mg Tab) 40 mg PO BID [facility] Stop: 10/27/24 08:59 Last Admin: 09/28/24 08:55 Dose: 40 mg Melatonin (Melatonin 3 Mg Tab) 3 mg PO HS PRN PRN Reason: Sleep Stop: 10/27/24 04:01 Memantine (Memantine Hcl 10 Mg Tab) 10 mg PO BID [facility] Stop: 10/27/24 08:59 Last Admin: 09/28/24 08:55 Dose: 10 mg Morphine Sulfate (Morphine Sulfate 2 Mg/Ml Carp) 2 mg IV Q4 PRN PRN Reason: Moderate Pain (Scale 4, 5, 6) Stop: 10/11/24 15:27 Morphine Sulfate (Morphine Sulfate 4 Mg/Ml 1 Ml Carp\Vial) 4 mg IV Q4 PRN PRN Reason: Severe Pain (Scale 7, 8, 9,10) Stop: 10/11/24 15:27 Last Admin: 09/28/24 10:22 Dose: 4 mg Olanzapine (Olanzapine Zydis 5 Mg Orally Dis. Tab) 2.5 mg PO BID PRN PRN Reason: Agitation Stop: 10/27/24 20:59 Last Admin: 09/28/24 08:21 Dose: 2.5 mg Ondansetron HCl (Ondansetron Inj 2 Mg/Ml 2 Ml Vial) 4 mg IV Q6H PRN PRN Reason: Nausea And Vomiting Stop: 10/27/24 04:01 Oxycodone HCl (Oxycodone Hcl Ir 5 Mg Tab (Immediate Release)) 10 mg PO Q6H PRN PRN Reason: pain,severe Stop: 10/11/24 04:01 Umeclidinium/Vilanterol (Umeclidinium/Vilanterol 62.5/25mcg 7 Puffs/Inhaler) 1 puffs INH DAILY [facility] Stop: 10/27/24 08:59 Last Admin: 09/28/24 08:22 Dose: 1 puffs PG Care Time/CCT Total # of Minutes Spent Total Time Spent with Patient: Total time spent is greater than 50% in coordination of care (as documented) at patient's floor/unit and/or counseling patient: Advanced Care Planning 68454 Advanced Care Planning 30 Min [place] [address] SUB INP/OBS CARE 2/35MIN Patient Type Established History Expanded Problem Focused Exam Expanded Problem Focused Medical Decision Making Moderate Complexity Diagnoses Palliative care by specialist Z51.5 Advanced care planning/counseling discussion Z71.89 Comfort measures only status Z51.5 Need for comfort care Additional Codes Advanced Care Planning - 50898 Advanced Care Planning 30 Min: 02723 Advanced Care Planning 30 Min ([id number])
[2024-09-28] MEDS ORDERED: HYOSCYAMINE SULFATE 0.125 MG TAB SL PRN (13:24)
[2024-09-28] MEDS ORDERED: ONDANSETRON INJ 2 MG/ML 2 ML VIAL IV PRN (13:24)
[2024-09-28] MEDS ORDERED: ATROPINE SULFATE 1% OP SOLN 5 ML BTL SL PRN (13:24)
[2024-09-28] MEDS ORDERED: ONDANSETRON 4 MG OD TAB SL PRN (13:24)
[2024-09-28] MEDS: MoRPHine SULFATE 2 MG/ML CARP IV PRN (14:24)
[2024-09-28 18:44] VITALS: BP 110/70; PULSE 112; RESP 20; TEMP 97.7; O2SAT 92
--- NOTE | 2024-09-28 19:22 | Hospitalist Progress Note ---
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 Patient presented after referral by oncology due to weakness. He was found to have a white count 25.77, lactate 2.3, tachycardia (HR 120), procalcitonin greater than 100. Patient wished to have no further therapy or treatment for his cancer says he is done with this for right now he has now become attending and family has elected to proceed with comfort care #small cell lung cancer with mets to brain patient does not wish have any further therapy [facility]. #Comfort care, Pain/symptom control is with parenteral opiates Zyprexa ODT and angiolytics as needed discussion with palliative care , patient reportedly "gave up" according to his family last night that was with less responsive this. Family is uncomfortable taking the patient home removing out of the hospital and their hopes is that he passes away in the hospital during this stay #leukocytosis - WBC 25.77 with neutrophil predominance. Lactate 2.3. Procalcitonin greater than 100. CXR negative. respiratory bio fire - negative for acute infection, chest imaging without pneumonia Follow blood cultures, urine culture ( ua with blood and LE) MRSA swab positive - Antibiotics discontinued with initiation of comfort care #Dehydration - #PINKY - CKD 3 #COPD/MAC VTE ppx: heparin Overall outlook is poor is expected during this hospital stay Admission and Anticipated Discharge Date Admission Date: September 27, 2024 Subjective Patient was sleeping and difficult to arouse does move somewhat to direct tactile stimulation. Family is at the bedside and wishes to progress to full comfort care mode wishing for the patient to pass in the hospital Physical Exam Physical Exam: Patient appeared comfortable he had unlabored respirations he was able to be aroused but fell back to sleep easily Results & Data Results & Data Vital Signs (Past 12 Hours) Vital Signs Temp Pulse Pulse Resp BP Pulse Ox O2 Del Method 09/28/24 18:44 97.7 F 112 H 20 110/70 92 Room Air 09/28/24 13:32 106 H 09/28/24 11:13 97.2 F L 109 H 7 L 112/66 93 Room Air 09/28/24 08:55 Room Air 09/28/24 07:46 97.9 F 112 H 18 121/77 96 Room Air PG Care Time/CCT Total # of Minutes Spent Total Time Spent with Patient: Total time spent is greater than 50% in coordination of care (as documented) at patient's floor/unit and/or counseling patient: Coding Level of Care Code 81502 SUB INP/OBS CARE 3/50MIN Diagnoses Leukocytosis D72.829 Dehydration E86.0 PINKY (acute kidney injury) N17.9 Generalized weakness R53.1
[2024-09-28] MEDS: diphenhydrAMINE 50 MG/ML VIAL IV STA (21:26)
[2024-09-28] MEDS: HYDROmorphone INJ 0.5 MG/0.5 ML SYR IV PRN (21:26)
[2024-09-29] MEDS: HYDROmorphone INJ 1 MG/ML SYRINGE IV PRN (02:17)
--- NOTE | 2024-09-29 12:33 | Palliative Care Progress Note ---
Date of Service September 29, 2024 Assessment & Plan (1) Palliative care by specialist: Plan: Palliative care will continue to follow for ongoing EOL pt care and family support. (2) Encounter for end of life education, guidance and counseling: Plan: Phone call placed to pt's son to give updates and encourage visitation. Discussed with Edwin that pt is more alert today and pain well managed. D iscussed hospice care and criteria for [facility] hospice. Pt does not currently fit criteria (per event marketing representative from [facility] who came to site to evaluate). Edwin shared that they had discussed discharge plan with pt when he was more clear of mind and he is understanding that he may need to be discharged to SNF because they cannot provide 24hr nonfarm animal caretaker at home. If pt is to be discharged to SNF, family expressed first choice would be [facility] and [facility]. Family made aware that if pt decompensates precluding discharge he will be reevaluated for [facility] hospice. Son indicated that his priority is pt's comfort regardless of location. Anticipatory guidance reinforced. Discussed changes pt may move through in the dying process including but not limited to sleeping more, disorientation when awake, restlessness, diminished senses/inability to respond to stimulus although ability to be aware of them remains intact longer, and changes in body temperatures, skin changes/mottling/cyanosis, respiratory pattern changes, and oral secretions. Family verbalized understanding. The goal is to assure a peaceful . (3) Comfort measures only status: Plan: transition to [facility] at family request on 09/28/24. (4) Need for comfort care: Plan: Comfort plan of care parameters: 1. Patient/Family want hospice added to their care. 2. NO rehab/PT/OT 3. Strictly End of Life care only 4. NO escalation of care: do not increase oxygen, escalate therapies, etc. The focus is on comfort through end of life, assure this is accomplished with aggressive symptom management (i.e. relief of dyspnea, pain, etc.) 5. NO return to hospital 6. NO labs, imaging, surgery 7. Oral intake as desired for comfort and pleasure: NO dietary restriction, Allow permissive aspiration, do not withhold food or drink for concern of aspiration and allow PO for pleasure and comfort. 8. If difficulty urinating/commode/bedpan, ok to place Gomez catheter for comfort/hygiene/skin protection AND/OR Continue Gomez catheter for comfort/hygiene/skin protection 9. NO: calorie counts, artificial nutrition, feeding tubes or IV fluids EOL Symptom manamgement: Pain/dyspnea/tachypnea - pt switched to dilaudid overnight and morphine dc'd, this is sensible given resolving PINKY now with poor PO intake dilaudid 0.2mg IVP PRN [id number] Consider titratable dilaudid drip if pt requires >3 PRN doses in under two consecutive hours. Nausea/vomitting zofran 4mg IVP q4h PRN Agitation ativan 0.5mg IVP q4h PRN Hyperactive delirium haldol 5mg IVP q6h PRN Secretions - if repositioning not effective robinul 0.4mg IV q4h PRN atropine SL 3 drops Q1h PRN Nursing care: Discontinue all medications not directed towards comfort. Detether pt from IV tubing, monitor cables, and check vitals once per shift. Please continue HFNC and titrate down as able for patient comfort. Use medications above PRN for dyspnea/tachypnea and do not increase oxygen once titrated down. Assess q1h for pain/dyspnea and treat accordingly. Plan [employer], dispo pending Admission and Anticipated Discharge Date Admission Date: September 27, 2024 Subjective Assessed pt at bedside, he was more awake today, confused and oriented to person only. He appears comfortable and denies pain, normal respiratory effort, rate 16/min and regular. No visitors at bedside. Review of Systems Review of Systems: All systems reviewed & are unremarkable except as noted in Subjective Physical Exam Physical Exam: Patient appeared comfortable he had unlabored respirations he was able to be aroused but fell back to sleep easily Constitutional: + ill appearing, + cachectic, + frail ap pearing, + lethargic and + malnourished; not in distress Eyes: ENMT: Ears: + hearing impairment Mouth: + muffled voice, + dry oral mucous membranes, + poor dentition and + chipped teeth Neck: trachea midline, no thyromegaly Respiratory: + prolonged expiratory phase and symmetr ic chest movement; no respiratory distress Auscultation: + diminished lung sounds and + rhonchi Cardiovascular: Rate/Rhythm: regular rate Heart Sounds: normal S1 and normal S2 Palpation: normal PMI Gastrointestinal (Abdomen): Inspection/Auscultation: + scaphoid Percussion/Palpation: abdomen soft and normal to percussion; no guarding and abdomen not rigid Musculoskeletal: gen weakness Skin: + turgor decreased, + skin atrophy, + dr y skin, + pallor and + patchy alopecia Neurologic: obtunded Psychiatric: Orientation: alert and oriented to person Results & Data Vital Signs (Past 12 Hours) Vital Signs Temp 36.5 C 09/28/24 18:44 Pulse 112 H 09/28/24 18:44 Resp 20 09/28/24 18:44 BP 110/70 09/28/24 18:44 Pulse Ox 92 09/28/24 18:44 O2 Del Method Room Air 09/28/24 22:15 Intake & Output 09/28/24 09/29/24 09/29/24 18:59 06:59 18:59 Intake Total 1391.667 / 1511.667 120 / 1511.667 Output Total 300 / 675 375 / 675 Balance 1091.667 / 836.667 -255 / 836.667 Weight 42 kg Intake: IV 1391.667 / 1391.667 Lactated Ringer's 1,000 ml @ 1391.667 / 1391.667 100 mls/hr IV .Q10H [facility] Rx#: [id number] Oral 120 / 120 Output: Urine Amount (Catheter) 300 / 675 375 / 675 Gomez/Indwelling 300 / 675 375 / 675 Laboratory Results No further labs or diagnostics in concert with comfort directed care. Diagnostic Findings No further labs or diagnostics in concert with comfort directed care. Medications Administered Current Inpatient Medications Acetaminophen (Acetaminophen 500 Mg Tab) 1,000 mg PO Q6H PRN PRN Reason: Pain Stop: 10/27/24 04:01 Atropine Sulfate (Atropine Sulfate 1% Op Soln 5 Ml Btl) 4 drops SL Q1H PRN PRN Reason: Secretions or pulm congestion Stop: 10/28/24 13:23 Docusate Sodium (Docusate Sodium 100 Mg Cap) 100 mg PO BID PRN PRN Reason: Constipation Stop: 10/27/24 04:01 Glycopyrrolate (Glycopyrrolate 0.2 Mg/Ml Vial) 0.4 mg IV Q4H PRN PRN Reason: Rattling Secretions or Pulm Congestion Stop: 10/28/24 13:23 Hydromorphone HCl (Hydromorphone Inj 0.5 Mg/0.5 Ml Syr) 0.5 mg IV Q4H PRN PRN Reason: Moderate Pain (Scale 4, 5, 6) Stop: 10/12/24 21:09 Last Admin: 09/28/24 21:26 Dose: 0.5 mg Hydromorphone HCl (Hydromorphone Inj 1 Mg/Ml Syringe) 1 mg IV Q4H PRN PRN Reason: Severe Pain (Scale 7, 8, 9,10) Stop: 10/12/24 21:09 Last Admin: 09/29/24 02:17 Dose: 1 mg Hyoscyamine (Hyoscyamine Sulfate 0.125 Mg Tab) 0.125 mg SL Q4H PRN PRN Reason: Secretions or Pulm Congestion Stop: 10/28/24 13:23 Lorazepam (Lorazepam 2 Mg/1 Ml Vial) 0.5 mg IV Q4H PRN PRN Reason: Anxiety/Agitation Stop: 10/28/24 13:23 Last Admin: 09/29/24 04:45 Dose: 0.5 mg Melatonin (Melatonin 3 Mg Tab) 3 mg PO HS PRN PRN Reason: Sleep Stop: 10/27/24 04:01 Memantine (Memantine Hcl 10 Mg Tab) 10 mg PO BID EMMA Stop: 10/27/24 08:59 Last Admin: 09/29/24 10:23 Dose: Not Given Olanzapine (Olanzapine Zydis 5 Mg Orally Dis. Tab) 2.5 mg PO BID PRN PRN Reason: Agitation Stop: 10/27/24 20:59 Last Admin: 09/28/24 08:21 Dose: 2.5 mg Ondansetron HCl (Ondansetron Inj 2 Mg/Ml 2 Ml Vial) 4 mg IV Q6H PRN PRN Reason: Nausea And Vomiting Stop: 10/27/24 04:01 Ondansetron HCl (Ondansetron Inj 2 Mg/Ml 2 Ml Vial) 4 mg IV Q4H PRN PRN Reason: Nausea &/or Vomiting Stop: 10/28/24 13:23 Ondansetron HCl (Ondansetron 4 Mg Od Tab) 4 mg SL Q4H PRN PRN Reason: Nausea &/or Vomiting Stop: 10/28/24 13:23 PG Care Time/CCT Total # of Minutes Spent Total Time Spent with Patient: Total time spent is greater than 50% in coordination of care (as documented) at patient's floor/unit and/or counseling patient: [place] [address] SUB INP/OBS CARE 2/35MIN Patient Type Established Medical Decision Making Moderate Complexity Diagnoses Palliative care by specialist Z51.5 Encounter for end of life education, guidance and counseling Comfort measures only status Z51.5 Need for comfort care
--- NOTE | 2024-09-29 13:17 | Hospitalist Progress Note ---
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 Patient presented after referral by oncology due to weakness. He was found to have a white count 25.77, lactate 2.3, tachycardia (HR 120), procalcitonin greater than 100. Patient wished to have no further therapy or treatment for his cancer says he is done with this for right now he has now become attending and family has elected to proceed with comfort care #small cell lung cancer with mets to brain patient does not wish have any further therapy follows with [facility]. Patient transition to comfort care status initially was more lethargic now more awake considering transition to senior living facility to transition to hospice at that location #Comfort care, Pain/symptom control is with parenteral opiates Zyprexa ODT and angiolytics as needed discussion with palliative care , patient reportedly "gave up" according to his family last night that was with less responsive this. Family is aware that his time is short however they may consider moving to a facility closer to home and make it easier for family to visit #leukocytosis - WBC 25.77 with neutrophil predominance. Lactate 2.3. Procalcitonin greater than 100. CXR negative. respiratory bio fire - negative for acute infection, chest imaging without pneumonia Follow blood cultures, urine culture ( ua with blood and LE) MRSA swab positive - Antibiotics discontinued with initiation of comfort care #Dehydration - #PINKY - CKD 3 #COPD/MAC VTE ppx: heparin Overall outlook is poor is expected during this hospital stay Admission and Anticipated Discharge Date Admission Date: September 27, 2024 Subjective Patient slightly more awake on 09/29. His pain was controlled but did require parenteral pain control medications. Physical Exam Physical Exam: Painful to move and examine unlabored respirations PG Care Time/CCT Total # of Minutes Spent Total Time Spent with Patient: Total time spent is greater than 50% in coordination of care (as documented) at patient's floor/unit and/or counseling patient: Coding Level of Care Code 46803 SUB INP/OBS CARE 235MIN Diagnoses Comfort measures only status Z51.5 Metastatic lung cancer (metastasis from lung to other site) C34.90 PINKY (acute kidney injury) N17.9 Adult failure to thrive R62.7 Generalized weakness R53.1
--- NOTE | 2024-09-30 10:06 | Hospitalist Progress Note ---
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 Patient presented after referral by oncology due to weakness. He was found to have a white count 25.77, lactate 2.3, tachycardia (HR 120), procalcitonin greater than 100. Patient wished to have no further therapy or treatment for his cancer says he is done with this for right now he has now become attending and family has elected to proceed with comfort care #small cell lung cancer with mets to brain patient does not wish have any further therapy follows with [facility]. Patient transition to comfort care status initially was more lethargic now more awake considering transition to senior living facility to transition to hospice at that location #Comfort care, Pain/symptom control is with parenteral opiates Zyprexa ODT and angiolytics as needed discussion with palliative care , patient reportedly "gave up" according to his family last night that was with less responsive this. Family is aware that his time is short however they may consider moving to a facility closer to home and make it easier for family to visit #leukocytosis - WBC 25.77 with neutrophil predominance. Lactate 2.3. Procalcitonin greater than 100. CXR negative. respiratory bio fire - negative for acute infection, chest imaging without pneumonia Follow blood cultures, urine culture ( ua with blood and LE) MRSA swab positive - Antibiotics discontinued with initiation of comfort care #Dehydration - #PINKY - CKD 3 #COPD/MAC VTE ppx: comfort measures Overall outlook is poor is expected during this hospital stay Admission and Anticipated Discharge Date Admission Date: September 27, 2024 Subjective Pt opens eyes to name but then goes back to sleep Review of Systems Review of Systems: not able to obtain full ROS due to mentation Physical Exam Physical Exam: Gen: cachectic, chronically ill appearing male, no acute distress, lying in bed comfortable HEENT: NC/AT, dry MM, bitemporal wasting Lungs: nonlabored breathing, CTA anteriorly CVS: s1s2nl, tachycardic Abd: nl bowel sounds, soft, NT / ND : + freitas Ext: no edema Neuro: lethargic Psych: calm PG Care Time/CCT Total # of Minutes Spent Total Time Spent with Patient: Total time spent is greater than 50% in coordination of care (as documented) at patient's floor/unit and/or counseling patient: Coding Level of Care Code 99352 SUB INP/OBS CARE 2/35MIN Diagnoses Comfort measures only status Z51.5 Metastatic lung cancer (metastasis from lung to other site) C34.90 PINYK (acute kidney injury) N17.9 Adult failure to thrive R62.7 Generalized weakness R53.1
[2024-09-30] MEDS ORDERED: HYDROmorphone INJ 0.5 MG/0.5 ML SYR IV PRN (19:42)
[2024-09-30] MEDS: HYDROmorphone INJ 1 MG/ML SYRINGE IV PRN (19:49)
[2024-10-01] MEDS: GLYCOPYRROLATE 0.2 MG/ML VIAL IV PRN (06:17)
[2024-10-01] MEDS ORDERED: HALOPERIDOL LACTATE 5 MG/ML 1 ML VIAL IV PRN (08:18)
--- NOTE | 2024-10-01 08:18 | Hospitalist Progress Note ---
Date of Service October 01, 2024 Assessment & Plan (1) Comfort measures only status: (2) Metastatic lung cancer (metastasis from lung to other site): (3) PINKY (acute kidney injury): (4) Adult failure to thrive: (5) Generalized weakness: Plan 63 yo M with PMHx of extensive stage SCLC with mets to brain, recent chemotherapy, COPD with current tobacco use, HTN, history of torsades, MAC. Patient presented after referral by oncology due to weakness. He was found to have a white count 25.77, lactate 2.3, tachycardia (HR 120), procalcitonin greater than 100. Patient wished to have no further therapy or treatment for his cancer says he is done with this for right now. His mental status progressively worsened. Given his wishes and after meeting with Palliative care, family has elected to proceed with comfort care. PRN med requirements in 24h (10/01) - Hydromorphone 1mg IV x3 - Lorazepam 0.5mg IV x1 - Glycopyrrolate 0.4mg IV x1 #SCLC #COPD #active tobacco use - pt wishes to no longer pursue cancer directed treatment and wants comfort focused treatment - comfort measures #Uncontrolled pain - cont Hydromorphone 0.5mg - 1mg IV q2h prn - adjuvant lorazepam 0.5mg IV q4h prn #Uncontrolled dyspnea - hydromorphone and lorazepam as above - prn oxygen for comfort (not to titrate to pulse ox) #Secretions - cont prn glycopyrrolate IV and atropine SL drops #Agitation / Terminal delirium - d/c olanzapine and initiate haloperidol 0.5mg PO q4h prn (no documentation of parkinson's disease or Lewy Body dementia) (unable to order haloperidol IV due to hospital policy) - utilize TADA method - when agitated, r/o urinary retention (pt has freitas, ensure it's patent) and constipation #Bowel regimen - last BM per RN 09/27/24 - Bisacodyl TX daily PRN in place, dose to be given today #Dispo - CM on board for placement - anticipate while inpatient 10/01: left message for Dana Sharpless Admission and Anticipated Discharge Date Admission Date: September 27, 2024 Subjective Increased pain overnight with repositioning This morning he is restless though he is denying any symptoms. Review of Systems Review of Systems: ROS unreliable due to pt's mental status Physical Exam Physical Exam: Gen: cachectic, chronically ill appearing male, no acute distress, lying in bed comfortable HEENT: NC/AT, dry MM, bitemporal wasting Lungs: nonlabored breathing, CTA anteriorly CVS: s1s2nl, tachycardic Abd: diminished bowel sounds bowel sounds, soft, NT / ND : + freitas, very minimal urine output Ext: no edema Neuro: awake Psych: restless PG Care Time/CCT Total # of Minutes Spent Total Time Spent with Patient: Total time spent is greater than 50% in coordination of care (as documented) at patient's floor/unit and/or counseling patient: Coding Level of Care Code 15656 SUB INP/OBS CARE 3/50MIN Diagnoses Comfort measures only status Z51.5 Metastatic lung cancer (metastasis from lung to other site) C34.90 PINKY (acute kidney injury) N17.9 Adult failure to thrive R62.7 Generalized weakness R53.1
[2024-10-01] MEDS ORDERED: HALOPERIDOL ORAL SOLN 2 MG/ML PO PRN (08:28)
[2024-10-01] MEDS: HYDROmorphone INJ 0.5 MG/0.5 ML SYR IV PRN (11:39)
[2024-10-01] MEDS: HYDROmorphone INJ 1 MG/ML SYRINGE IV PRN (18:21)
[2024-10-02] MEDS ORDERED: HYDROmorphone INJ 0.5 MG/0.5 ML SYR IV PRN (10:23)
--- NOTE | 2024-10-02 10:24 | Palliative Care Progress Note ---
Date of Service October 02, 2024 Assessment & Plan (1) Palliative care by specialist: Plan: Palliative care will continue to follow for ongoing EOL pt care and family support. (2) Encounter for end of life education, guidance and counseling: Plan: Phone call placed to pt's son to give updates and encourage visitation. Discussed with Edwin that pt is more lethargic today and pain /dyspnea managed with frequent PRN medications. Discussed hospice care and criteria for [facility]. Pt does not currently fit criteria. Anticipatory guidance reinforced. Discussed changes pt may move through in the dying process including but not limited to sleeping more, disorientation when awake, restlessness, diminished senses/inability to respond to stimulus although ability to be aware of them remains intact longer, and changes in body temperatures, skin changes/mottling/cyanosis, respiratory pattern changes, and oral secretions. Family verbalized understanding. The goal is to assure a peaceful . (3) Comfort measures only status: Plan: transition to [employer] at family request on 09/28/24. (4) Need for comfort care: Plan: Comfort plan of care parameters: 1. Patient/Family want hospice added to their care. 2. NO rehab/PT/OT 3. Strictly End of Life care only 4. NO escalation of care: do not increase oxygen, escalate therapies, etc. The focus is on comfort through end of life, assure this is accomplished with aggressive symptom management (i.e. relief of dyspnea, pain, etc.) 5. NO return to hospital 6. NO labs, imaging, surgery 7. Oral intake as desired for comfort and pleasure: NO dietary restriction, Allow permissive aspiration, do not withhold food or drink for concern of aspiration and allow PO for pleasure and comfort. 8. If difficulty urinating/commode/bedpan, ok to place Gomez catheter for comfort/hygiene/skin protection AND/OR Continue Gomez catheter for comfort/hygiene/skin protection 9. NO: calorie counts, artificial nutrition, feeding tubes or IV fluids EOL Symptom manamgement: Pain/dyspnea/tachypnea - pt switched to dilaudid overnight and morphine dc'd, this is sensible given resolving PINKY now with poor PO intake dilaudid 0.2mg IVP PRN [id number] Consider titratable dilaudid drip if pt requires >3 PRN doses in under two consecutive hours. Nausea/vomitting zofran 4mg IVP q4h PRN Agitation ativan 0.5mg IVP q4h PRN Hyperactive delirium haldol 5mg IVP q6h PRN Secretions - if repositioning not effective robinul 0.4mg IV q4h PRN atropine SL 3 drops Q1h PRN Nursing care: Discontinue all medications not directed towards comfort. Detether pt from IV tubing, monitor cables, and check vitals once per shift. Please continue HFNC and titrate down as able for patient comfort. Use medications above PRN for dyspnea/tachypnea and do not increase oxygen once titrated down. Assess q1h for pain/dyspnea and treat accordingly. 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 Pt is unresponsive to verbal and gentle tactile stimuli, did not attempt to awaken in concert with comfort directed care. He appears comfortable, pale skin, extremities cool. Respiratory effort increased, rate 26/min with noted accessory muscle use and shoulder bobbing. No visitors at bedside. Review of Systems Review of Systems: All systems reviewed & are unremarkable except as noted in Subjective Physical Exam Constitutional: + ill appearing, + cachectic, + frail ap pearing, + in distress and + malnourished Eyes: ENMT: Ears: + hearing impairment Mouth: + dry oral mucous membranes, + poor dentition and + chipped teeth Neck: trachea midline, no thyromegaly Respiratory: + respiratory distress, + uses accessory muscles, + abnormal respiratory pattern, + tachypneic, + prolonged expiratory phase and symmetric chest movement Auscultation: + diminished lung sounds and + rhonchi increased effort, rate 26/min Cardiovascular: Rate/Rhythm: regular rate Heart Sounds: normal S1 and normal S2 Palpation: normal PMI Gastrointestinal (Abdomen): Inspection/Auscultation: + scaphoid Percussion/Palpation: abdomen soft and normal to percussion; no guarding and abdomen not rigid Musculoskeletal: gen weakness Skin: + turgor decreased, + skin atrophy, + dr y skin, + pallor and + patchy alopecia Neurologic: obtunded Results & Data Vital Signs (Past 12 Hours) Vital Signs O2 Del Method 10/02/24 07:30 Room Air Laboratory Results No further labs or diagnostics in concert with comfort directed care. Diagnostic Findings No further labs or diagnostics in concert with comfort directed care. Medications Administered Current Inpatient Medications Acetaminophen (Acetaminophen 500 Mg Tab) 1,000 mg PO Q6H PRN PRN Reason: Pain Stop: 10/27/24 04:01 Atropine Sulfate (Atropine Sulfate 1% Op Soln 5 Ml Btl) 4 drops SL Q1H PRN PRN Reason: Secretions or pulm congestion Stop: 10/28/24 13:23 Bisacodyl (Bisacodyl 10 Mg Supp) 10 mg VT DAILY PRN PRN Reason: Constipation Stop: 10/31/24 08:15 Last Admin: 10/01/24 12:38 Dose: 10 mg Glycopyrrolate (Glycopyrrolate 0.2 Mg/Ml Vial) 0.4 mg IV Q4H PRN PRN Reason: Rattling Secretions or Pulm Congestion Stop: 10/28/24 13:23 Last Admin: 10/01/24 14:30 Dose: 0.4 mg Haloperidol (Haloperidol Oral Soln 2 Mg/Ml) 0.5 mg PO Q4 PRN PRN Reason: Agitation, nausea, vomiting Stop: 10/31/24 11:59 Hydromorphone HCl (Hydromorphone Inj 0.5 Mg/0.5 Ml Syr) 0.5 mg IV Q15M PRN PRN Reason: mod pain and mod dyspnea Stop: 10/15/24 11:00 Hydromorphone HCl (Hydromorphone Inj 1 Mg/Ml Syringe) 1 mg IV Q15M PRN PRN Reason: severe pain and severe dyspnea Stop: 10/15/24 11:00 Last Admin: 10/02/24 12:38 Dose: 1 mg Hyoscyamine (Hyoscyamine Sulfate 0.125 Mg Tab) 0.125 mg SL Q4H PRN PRN Reason: Secretions or Pulm Congestion Stop: 10/28/24 13:23 Lorazepam (Lorazepam 2 Mg/1 Ml Vial) 0.5 mg IV Q4H PRN PRN Reason: Anxiety/Agitation Stop: 10/28/24 13:23 Last Admin: 10/01/24 11:39 Dose: 0.5 mg Ondansetron HCl (Ondansetron Inj 2 Mg/Ml 2 Ml Vial) 4 mg IV Q4H PRN PRN Reason: Nausea &/or Vomiting Stop: 10/28/24 13:23 Ondansetron HCl (Ondansetron 4 Mg Od Tab) 4 mg SL Q4H PRN PRN Reason: Nausea &/or Vomiting Stop: 10/28/24 13:23 PG Care Time/CCT Total # of Minutes Spent Total Time Spent with Patient: Total time spent is greater than 50% in coordination of care (as documented) at patient's floor/unit and/or counseling patient: Coding [place] [address] SUB INP/OBS CARE 2/35MIN Patient Type Established History Expanded Problem Focused Exam Expanded Problem Focused Medical Decision Making Moderate Complexity Diagnoses Palliative care by specialist Z51.5 Encounter for end of life education, guidance and counseling Comfort measures only status Z51.5 Need for comfort care
[2024-10-02] MEDS: HYDROmorphone INJ 1 MG/ML SYRINGE IV PRN (12:38)
--- NOTE | 2024-10-02 17:04 | Hospitalist Progress Note ---
Date of Service October 02, 2024 Assessment & Plan (1) Comfort measures only status: Plan: Supportive care (2) Metastatic lung cancer (metastasis from lung to other site): Plan: Pain control measures only. (3) PINKY (acute kidney injury): Plan: No further monitoring of intake and output. 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 Anticipate this patient to within the next day or 2 Admission and Anticipated Discharge Date Admission Date: September 27, 2024 Subjective The patient is unresponsive on comfort measures only. appears to be eminent. Appreciate palliative care entry Review of Systems 2 Review of Systems: The patient is unresponsive and unable to answer any questions regarding review of systems at this time Physical Exam 2 Physical Exam: General-unresponsive. Cachectic appearing. No documented fever HEENT-head atraumatic and normocephalic Neck-no lymphadenopathy or thyromegaly, trachea midline Chest-diminished breath sounds bilaterally with scattered bilateral rhonchi. Cardiac-mildly tachycardic regular rhythm. Occasional premature beat. Normal S1 and S2 Abdomen-normal bowel sounds, no hepatosplenomegaly Extremities-no cyanosis, clubbing, or edema Neuro-unable to evaluate Psych-unable to evaluate Results & Data Results & Data Vital Signs (Past 12 Hours) Vital Signs O2 Del Method 10/02/24 07:30 Room Air Laboratory Results 09/28/24 06:14 09/28/24 06:14 PG Care Time/CCT Total # of Minutes Spent Total Time Spent with Patient: Total time spent is greater than 50% in coordination of care (as documented) at patient's floor/unit and/or counseling patient: Coding Level of Care Code 87448 SUB INP/OBS CARE 2/35MIN Diagnoses Comfort measures only status Z51.5 Metastatic lung cancer (metastasis from lung to other site) C34.90 PINKY (acute kidney injury) N17.9 Adult failure to thrive R62.7 Generalized weakness R53.1
--- NOTE | 2024-10-02 19:59 | Death Pronouncement Note ---
Date of Service October 02, 2024 Pronouncement Note Admission Date September 27, 2024 Date and Time of Date of : 10/02/24 Time of : 19:50 Summary Alerted by nursing that the patient ceased to breath. When I arrived to room 324 I encountered the patient in the following state: Constitutional: laying motionless in hospital bed HEENT: pupils fixed and dilated CV: no appreciable heart sounds Resp: no chest rise, no breath sounds appreciated Skin: pale, cool to touch Neuro: unresponsive to verbal stimuli and sternal rub Additional Data Confirmation of : no pulse, no respirations, no heart sounds and pupils fixed and dilated Pronouncement Performed By: Resident Physician Family: contacted (by nursing) Attending physician: Reginaldo Larson MD Was code activated?: No Resident Activity Tracking Resident Involvement: Resident Care Provided Care Provided: Adult Hospital Medicine
--- NOTE | 2024-10-03 08:06 | Discharge Summary ---
Discharge Summary Date of Service October 03, 2024 Principal Dx & Hospital Course #1 = Principal Diagnosis (1) Comfort measures only status: Supportive care (2) Metastatic lung cancer (metastasis from lung to other site): Pain control measures only. (3) PINKY (acute kidney injury): No further monitoring of intake and output. 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 Patient presented after referral by oncology due to weakness. He was found to have a white count 25.77, lactate 2.3, tachycardia (HR 120), procalcitonin greater than 100. Patient is extremely dry and suspect these elevations secondary to dehydration however infection remains on differential. No signs of pulmonary infection. Further workup is pe nding at time of admission. Patient seen at bedside. He is unsure as to why he was told to come over given his weakness and back pain however stated he was told he needed to come over for admission. He is a relatively poor historian. He stated he has been weak and with back pain today. He does have chronic back pain that currently is worse. He endorses chronic shortness of breath on exertion and dry cough that is unchanged. He denies any dizziness, lightheadedness, fever, chills, congestion, chest pain, abdominal pain, nausea, vomiting, diarrhea, dysuria, difficulty urinating, skin erythema. He still smokes cigarettes but declines need for nicotine patch at this time. He took all of his evening medications prior to arrival. He wishes to be full code. He does endorse having a poor appetite and not drinking enough fluids at home and does feel like his mouth is dry. Most recent chemotherapy 2 weeks ago. Is to have chemotherapy in the morning with Dr. Golden. 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
== END 2024-10-02 22:57 | disposition expired | DRG 641 ==
LOC: SUATTDRO → ED 23:35 → SUATTDRO 09-27 03:05 → INTOOBSV 09-27 03:05 → OBSVTOIN 09-27 03:05 → 2N 09-27 03:05 → 3E 09-28 18:42